=== PATIENT | male | born 1950 | race Caucasian/White ===

== ENCOUNTER 2016-09-22 11:02 | Inpatient (IN) | payer OTHER ==
[~2016-09-22 11:02] MED LIST: AMLO5TAB2 PO; OXYC-395 PO; ROSU10 PO; VALS1TAB70 PO; VENTAER INH
[2016-09-26] MEDS ORDERED: TRAZ100T6 PO (09:58)
[2016-09-26] MEDS ORDERED: PRED10 PO ×2 (10:01)
[2016-09-26] MEDS ORDERED: DIAZ5TAB PO (10:01)
[2016-09-26] MEDS ORDERED: SYMB160A INH (10:02)
[2016-09-27] MEDS ORDERED: IBUP800T23 PO (15:38)
[2016-09-29] MEDS ORDERED: INSULIN HUMAN REGULAR 1,000 UNITS/10 ML VIAL SQ PRN (10:00)
[2016-09-29] MEDS ORDERED: LACTATED RINGER'S 1000 ML IV PRN (10:00)
[2016-09-29] MEDS ORDERED: VANCOMYCIN HCL 1000 MG ON-CALL/NS 250 ML IV SCH ×2 (10:00)
[2016-09-29] MEDS ORDERED: POVIDONE IODINE 5% (ANTISEPSIS KIT) 4 APPLICATIONS EACH NARE PRN (10:00)
[2016-09-29] MEDS ORDERED: METOPROLOL TARTRATE 25 MG TAB PO PRN (10:00)
[2016-09-29] MEDS ORDERED: SODIUM CHLORID 0.9% 500 ML IV PRN (10:00)
[2016-09-29] MEDS ORDERED: SODIUM CHLOR 0.9% 1000 ML INJ 1,000 ML IV SCH (10:00)
[2016-09-29] MEDS ORDERED: CHLORHEXIDINE GLUCONATE 2 % 1 PACK (2 CLOTHS) TOPICAL PRN (10:00)
[2016-09-29 10:04] VITALS: BP 142/85; PULSE 74; RESP 16; TEMP 97.8; O2SAT 96
[2016-09-29] MEDS ORDERED: BUPIVACAINE HCL PF 0.5% 30 ML VIAL ONE (10:33)
[2016-09-29] MEDS ORDERED: THROMBIN (TOPICAL) 5,000 UNIT VIAL ONE ×2 (10:33→13:38)
[2016-09-29] MEDS ORDERED: ceFAZolin 2 GM PREMIX 50 ML ONE (10:33)
[2016-09-29] MEDS ORDERED: GENTAMICIN SULFATE 80 MG/2 ML VIAL ONE (10:34)
[2016-09-29] MEDS ORDERED: GELFOAM SIZE 100 ONE (10:34)
[2016-09-29] MEDS ORDERED: ePHEDrine/NS 25 MG/5 ML SYR IV ONE (11:52)
[2016-09-29] MEDS ORDERED: PROPOFOL 200 MG/20 ML AMP IV ONE (11:52)
[2016-09-29] MEDS ORDERED: ONDANSETRON HCL 4 MG/2 ML VIAL IV PUSH ONE (11:53)
[2016-09-29] MEDS ORDERED: PHENYLEPHRINE HCL 10 MG/ML VIAL IV ONE (11:53)
[2016-09-29] MEDS ORDERED: PHENYLEPH/NS 1000 MCG/10 ML SYR IV ONE (11:53)
[2016-09-29] MEDS ORDERED: LACTATED RINGER'S 1000 ML INJ 2,000 ML IV ONE (11:54)
[2016-09-29] MEDS ORDERED: SODIUM CHLOR 0.9% 250 ML INJ 250 ML IV ONE (11:54)
[2016-09-29] MEDS ORDERED: SODIUM CHLORID 0.9% 500 ML INJ 500 ML IV ONE (11:54)
[2016-09-29] MEDS ORDERED: ARTIFICIAL TEARS OPTH OINT 3.5 APPLIC/3.5 GM TUBO ONE (12:29)
[2016-09-29] MEDS ORDERED: fentaNYL CITRATE 250 MCG/5 ML AMP ONE (12:29)
[2016-09-29] MEDS ORDERED: MIDAZOLAM HCL 2 MG/2 ML VIAL ONE (12:29)
[2016-09-29] MEDS ORDERED: ACETAMINOPHEN 1000 MG/100 ML VIAL IV ONE (12:29)
[2016-09-29] MEDS ORDERED: FAMOTIDINE 20 MG/2 ML VIAL ONE (12:29)
[2016-09-29] MEDS: NS + KCL 20 MEQ INJ 1,000 ML IV SCH (17:03)
--- NOTE | 2016-09-29 17:09 | PD.OP ---
Operative Report Date of Surgery: Sep 29, 2016 Preoperative Diagnosis: l5-S1 spondylosis Postoperative Diagnosis: l5-S1 spondylosis Procedure: L5-S1 laminectomy, interbody arthrodhesis using PEEK cage and autologous bone graft, L5-S1 instrumental fixation using transpedicular screws and rods, L5-S1 posterolateral fusion using autologous bone graft and demineralized bone matrix. Microsurgical dissection Anesthesia: general Surgeon: Tucker Sofia Vault Keeper(s): Marilin Hernandez Operation and Findings: INDICATIONS FOR PROCEDURE Mr Castillo is a 65 year-old male who presented with intractable mechanical back pain and stephanie evidence of lower extremity radiculopathy. He has a history of a prior L4-5 laminectomy and fusion. He developed adjacent level (to a prior fusion) degenerative disk disease with facet arthropathy and a disk protusion at L5-S1. He failed maximum nonsurgical management including multiple modalities of conservative treatment as well as pain management interventions by an interventional pain specialist. The patient has undergone a previous surgical procedure. A redo surgical decompression and arthrodhesis were indicated as a last resort. The [id number] details of the procedure, indications, alternatives, risks and potential complications were fully discussed with the patient. The patient fully understood. All the questions were answered. No guarantees were given. The patient voiced requesting the procedure and provided informed consents. The patient was offered the alternative of delaying the procedure and continuing with nonsurgical management. DETAILS OF THE SURGICAL PROCEDURE Prior to the procedure, the surgical incision was marked in the preoperative surgical holding room, and the procedure, risks, and potential complications revisited with the patient. Placement of electrodes for intraoperative neurophysiological monitoring was completed. The patient was taken to the operative room, and following induction of general anesthesia, endotracheal intubation was performed. A Garner catheter, bilateral GREGORIO hose and sequential compression devices were placed and kept throughout the procedure. The patient was positioned prone, over a Herrera table using gel pads and bolsters.. All pressure in the preoperative surgical holding room points were carefully padded with eggcrate and gel mattress. The eyes were taped shut after ointment was applied by the anesthesiologist to prevent corneal abrasion. A bear hugger was placed over the exposed upper body to maintain control of the core body temperature. The electrophysiological team placed needles and electrodes in the proper location and baseline SSEPs were registered prior to and after positioning. Following positioning the levels were carefully assessed using AP and lateral views with the C-arm. The surgical procedure was performed in several steps as follows: SURGICAL APPROACH Once the patient was positioned, a localizing cross-table lateral x-ray was performed with a C-arm. Two paramedian small incisions were outlined on the skin approximately 3cm from the midline. The skin incisions were made with a # 10 blade. Small bleeders were controlled with the cautery. The dissection was then carried out into deper planes and through the thoracolumbar fascia with a Bovie. The intermuscular septum was identified and the myscles were blunted dissected along the septum. The facets and transverse process of S1 were exposed and the proper anatomical landmarks were identidied. The prior instrumentation was carefully exposed and a self-retaining retractor was placed on the incision. At this point of the procedure, the cross link of the prior instrumentation was carefully exposed free of scar tissue and the cross link was removed. Then, the caps of the previously placed screws were sequentially removed allowing removal of the rods. The screws at L4 were removed. INSTRUMENTAL FIXATION At this point of the procedure, placement of bilateral transpedicular screws was necessary for stabilization of the spine. Initially, the entry point for the screw was selected anatomically at the junction of the facet joint , transverse process and para interarticularis. Bilateral transpedicular screws were placed at S1. Initially, the entry point for the screw was selected anatomically at the junction of the facet, with the transverse process, and the pars interarticularis at the sacrum. This was started with a Giamshetti needle followed by the use of a obrien wire. A tap was used to create the threads for the screws. Finally bilateral transpedicular screws were carefully placed bilaterally at S1. A proper purchase was achieved with all screws. The position for each screw was assessed electrophysiologically stimulating each screw stimulating each screw with a nerve stimulator and radiologically with an AP, lateral and oblique views. Scan obtained with the isocentric C-arm. SURGICAL DECOMPRESSION The patient had significant mass effect over the thecal sac and exiting nerve roots S1. In order to relieve the neuro compression, it was necessary to perform a decompressive laminectomy, to allow proper decompression of the spinal canal and bilateral lateral recess and foramen. Note that the scope of such decompression was significantly more extensive than the minimal exposure necessary to perform and interbody fusion as the patient has severe facet arthropathy and degeneration of the disk with hypertrophic joint facets. At this point of the procedure, the operative microscope was draped in the usual sterile fashion and brought to the field. The rest of the surgical procedure was performed using microdissection technique with exception of the closure. Under the operative microscope, a bilateral decompressive laminectomy was performed at L5-S1. The spinous processes were removed with an Leksell and the laminae was drilled bilaterally with the TPS drill exposing the ligamentum flavum. There was severe facet arthropathy and in order to achieve a proper decompression, signicand amount of facet had to be drilled with a TPS drill, which resulted in further instability. The superior border of the ligamentum flavum was carefully elevated with a nerve hook and ligamentum dissector and removed with the 3mm and 4mm Kerrison. The S1 nerve roots were identified and followed towards the foramen. A bilateral foraminotomy was performed with a Kerrison. The lateral epidural space was carefully exposed and epidural veins were coagulated with the bipolar and incised with microscissors. Gentle medial retraction of the thecal sac allowed to expose the disk space L5- S1. The annulus was coagulated with the bipolar and incised with an 11 blade and a microdiskectomy was exposed in the standard fashion allowing for excellent decompression of the neuro structures. There was severe degeneration of the disk at L5S1 INTERBODY ARTHRODHESIS An interbody arthrodesis is necessary in order to further stabilize the spine and maintain distraction of the disk space and to increase the chances of obtaining a solid interbody fusion, it was necessary the insertion of an interbody device into the disk space. Otherwise, the disk space could collapse compromising the surgical results. At this point of the procedure, the microdiskectomy was completed at L5-S1 A reverse angled curet was applied to underneath the posterior longitudinal ligament and used to push the disk fragments into the disk space so they could be safely removed with the pituitary forceps. Once the diskectomy was completed, it was necessary to distract the space and decorticate the endplates in order to eliminate the cartilaginous endplate and expose healthy bone appropriate to perform the interbody fusion. The endplates at L5-S1 were distracted with a paddle distractor and then carefully decorticated using a series of bone jhon, ring curets, eliminating the cartilaginous endplate and exposing healthy bone. Disk distractor was used to increase the site. Initial motion was noted at the disk which was consistent with instability due to severe facet arthropathy. Once a thorough preparation of the disk space was achieved, the disk space was irrigated with antibiotic solution and the interbody arthrodesis performed by carefully impacting a Peek cage filled with autologous iliac crest bone graft in position. The use of several showed impactor with different angulations allowed for excellent positioning of the interbody cage. A solid position of the cage with good purchase into the disk space was achieved. The position of the cage was assessed anatomically without AP and lateral probe and radiologically with a C-arm. POSTEROLATERAL FUSION The posterolateral fusion is a critical component to the procedure to prevent future fatigue of the instrumentation and stabilize the spine. Initially the transverse processes of the vertebral bodies L5 and S1 lateral surface of the facet lateral gutters of the spine at L5 and S1 were carefully cleaned from all soft tissue and muscle attachments. The area was irrigated with antibiotic solution. Subsequently, the transverse processes, lateral surface of the facets and lateral gutters of the spine were thoroughly decorticated using the TPS drill with a 5 mm cutting prisca exposing cancellous bone in preparation of the posterolateral fusion. The incision was then irrigated again with antibiotic solution and the posterolateral fusion was performed by carefully packing the gutters of the spine at L5-S1 with autologous iliac crest bone, and with demineralized bone matrix. As much bone as possible was packed in the gutters of the spine. COMPLETION OF INSTRUMENTATION AND CLOSURE The rods were brought to the field, applied to all the screws. The screw caps were sequentially applied. Compression was performed between the pedicle screws at L5-S1 and final tightening of all screws was completed using a pre-calibrated torque wrench. A cross link was used to connect the rods in order to increase the stability of the construct. The cross links were secured using a pre-calibrated torque wrench. The incision was again irrigated with a large amount of antibiotic solution. Hemostasis was secured with the bipolar cautery. The Valsalva maneuver performed by anesthesiologist failed to show any evidence of cerebrospinal fluid leak or bleeding. A 7 mm Herrera-Arana drain was left in the epidural space and externalized through a separate stab incision. The incision was closed in planes. 0 Vicryl was used in interrupted fashion to close the thoracolumbar fascia and the superficial fascia. The subcutaneous tissue was approximated with 3-0 Vicryl. Special care was taken to avoid any space. The skin was closed with 4-0 Vicryl in a running fashion. Each plane of closure was irrigated with antibiotic solution. At the end of the procedure the sponge, needle and instrument counts were all correct. Estimated blood loss was 250 cc or less. No blood transfusion was given. The entire procedure was performed using continuous electrophysiological monitoring of the somato sensorial evoked potentials and EMG. The patient received prophylactic antibiotics. The patient was then extubated and transferred to the recovery room in stable condition. Tucker Sofia MD Sep 29, 2016 17:09
[2016-09-29] MEDS ORDERED: NALOXONE HCL 0.4 MG/ML AMP IV PRN (17:15)
[2016-09-29] MEDS ORDERED: traZODone HCL 100 MG TAB PO PRN (17:15)
[2016-09-29] MEDS ORDERED: ALBUTEROL SULFATE 90 MCG/ACT HFA 8 GM INHALER INH PRN (17:15)
[2016-09-29] MEDS ORDERED: MORPHINE SULFATE 8 MG/ML INJ IV PUSH PRN ×2 (17:15)
[2016-09-29] MEDS ORDERED: ACETAMINOPHEN 325 MG TAB PO PRN (17:15)
[2016-09-29] MEDS ORDERED: diphenhydrAMINE HCL 50 MG/ML VIAL IV PRN (17:15)
[2016-09-29] MEDS ORDERED: SODIUM CHLORIDE 0.9% FLUSH 10 ML FLUSH IV FLUSH PRN (17:15)
[2016-09-29] MEDS ORDERED: DO NOT ADM ANY ANTICOAGULANT DRUGS PRN (17:46)
--- NOTE | 2016-09-29 18:40 | RADRPT ---
EXAM DATE/TIME: 09/29/2016 13:33 [facility] COMPARISON: SPINE LUMBAR LTD (AP & LAT), October 19, 2009, 11:05. INDICATIONS : Fusion L5,S1 screw placement S1 removal L4 screws. MEDICAL HISTORY : Cardiovascular disease. Hypertension. SURGICAL HISTORY : Fusion, lumbar. Colon resection. Appendectomy. ENCOUNTER: Initial ACUITY: 1 day PAIN SCORE: Non-responsive. LOCATION: Lumbar spine. FINDINGS: There are changes of discectomy and fusion procedure with interbody and posterior instrumentation at L5/S1. Patient has had a remote discectomy at L4/L5 with interbody instrumentation. Previously seen p osterior instrumentation at L4/L5 has been removed. Alignment is within normal limits. CONCLUSION: New discectomy and fusion procedure with interbody and posterior instrumentation at L5/S1. Normal ali gnment. No acute complication demonstrated. Lonnie Hernandez MD on September 29, 2016 at 18:37 Board Certified Radiologist. This report was verified electronically.
[2016-09-29] MEDS: HYDROmorphone HCL PCA 6 MG/30 ML IV SCH ×2 (18:45→22:39)
[2016-09-29] MEDS: BUDESONIDE-FORMOTEROL 160/4.5 MCG INHALER INH SCH (20:52)
[2016-09-29] MEDS: predniSONE 10 MG TAB PO SCH (20:53)
[2016-09-29] MEDS: VALSARTAN 160 MG TAB PO SCH (20:53)
[2016-09-29] MEDS: amLODIPine BESYLATE 5 MG TAB PO SCH (20:53)
[2016-09-29] MEDS: SODIUM CHLORIDE 0.9% FLUSH 10 ML FLUSH IV FLUSH SCH (20:54)
[2016-09-29] MEDS: ceFAZolin 2 GM PREMIX 50 ML IV SCH (20:54)
[2016-09-29] MEDS: PCA - TOTAL MG DILAUDID DELIVERED PER SHIFT SCH (20:54)
[2016-09-29 20:55] VITALS: BP 112/69; PULSE 80; RESP 17; TEMP 96.8; O2SAT 94
[2016-09-29] MEDS ORDERED: ATORVASTATIN 20 MG TAB PO SCH (21:00)
[2016-09-30 00:50] VITALS: BP 106/64; PULSE 88; RESP 17; TEMP 96.7; O2SAT 94
[2016-09-30] MEDS: ceFAZolin 2 GM PREMIX 50 ML IV SCH ×2 (04:25→12:06)
[2016-09-30] MEDS: HYDROmorphone HCL PCA 6 MG/30 ML IV SCH ×5 (04:32→22:38)
[2016-09-30] MEDS: PCA - TOTAL MG DILAUDID DELIVERED PER SHIFT SCH ×3 (04:32→20:41)
[2016-09-30 04:50] VITALS: BP 105/67; PULSE 83; RESP 17; TEMP 97.5; O2SAT 94
[2016-09-30 06:55] LABS: AUTOMATED NEUTROPHIL # 16.1 TH/MM3 (1.8-7.7); BASOPHIL % 0.1 % (0.0-2.0); HEMATOCRIT 36.9 % (39.0-51.0); HEMO FLAGS DIFF FINAL; LYMPH % 6.3 % (9.0-44.0); LYMPHOCYTE # 1.2 TH/MM3 (1.0-4.8); MEAN CELL VOLUME 91.4 FL (80.0-100.0); MEAN CORPUSCULAR HEMOGLOBIN 30.4 PG (27.0-34.0); MEAN CORPUSCULAR HGB CONC 33.3 % (32.0-36.0); MONO % 6.9 % (0.0-8.0); NEUT % 86.7 % (16.0-70.0); PLATELET COUNT 374 TH/MM3 (150-450); RED BLOOD COUNT 4.04 MIL/MM3 (4.50-5.90); RED CELL DISTRIBUTION WIDTH 14.5 % (11.6-17.2); WHITE BLOOD COUNT 18.6 TH/MM3 (4.0-11.0)
[2016-09-30 06:58] LABS: BICARBONATE 28.9 MEQ/L (21.0-32.0); POTASSIUM 4.2 MEQ/L (3.5-5.1)
[2016-09-30 08:00] VITALS: BP 98/65; PULSE 95; RESP 16; TEMP 99.1; O2SAT 93
[2016-09-30] MEDS: PANTOPRAZOLE SODIUM 40 MG VIAL IVP SCH (10:03)
[2016-09-30] MEDS: predniSONE 10 MG TAB PO SCH ×2 (10:03→20:40)
[2016-09-30] MEDS: NS + KCL 20 MEQ INJ 1,000 ML IV SCH ×2 (10:05→20:41)
[2016-09-30] MEDS: BUDESONIDE-FORMOTEROL 160/4.5 MCG INHALER INH SCH ×2 (10:11→20:39)
[2016-09-30] MEDS: SODIUM CHLORIDE 0.9% FLUSH 10 ML FLUSH IV FLUSH SCH ×2 (10:13→20:39)
[2016-09-30] MEDS: DIAZEPAM 5 MG TAB PO PRN (10:13)
--- NOTE | 2016-09-30 11:14 | HHI.NSPN ---
History Chief Complaint: Incisional back pain. Interval History 09/30/16: Pt s/p L5-S1 laminectomy, interbody arthrodhesis using PEEK cage and autologous bone graft, L5-S1 instrumental fixation using transpedicular screws and rods, L5-S1 posterolateral fusion using autologous bone graft and demineralized bone matrix on 09/29/16. He complains of incisional back pain. He is using his FIGURE SKATER a lot to control his pain and doesn't want it discontinued. He denies any radiculopathy or paresthesias. Review of Systems General: Negative for: fever, chills, insomnia Respiratory: Negative for: shortness of breath, cough, sputum Cardiovascular: Positive for: orthopnea, Negative for: chest pain Gastrointestinal: Negative for: nausea, vomitting, diarrhea, constipation Exam Results Vital Signs Date Time Temp Pulse Resp B/P Pulse Ox O2 Delivery O2 Flow Rate FiO2 09/30/16 10:09 15 09/30/16 08:00 99.1 95 98/65 93 09/30/16 03:27 21 09/29/16 18:45 Room Air Intake and Output 09/29/16 09/29/16 09/30/16 08:00 16:00 00:00 Intake Total 700 ml Output Total 580 ml Balance 120 ml Physical Examination Resp: CTA bilaterally Heart: NSR no murmurs Abd: Soft positive bs Skin: No cyanosis or erythema. New bandage placed. AYSHA drain in place. Muscle: Moves LEs with good strength. Neuro: Pt awake and alert. Follows commands well. Speech clear and appropriate. Lab, Micro, Other Results Last Impressions Lumbar Spine X-Ray 09/29/16 0000 Signed Impressions: Service Date/Time: Thursday, September 29, 2016 13:33 - CONCLUSION: New discectomy and fusion procedure with interbody and posterior instrumentation at L5/S1. Normal alignment. No acute complication demonstrated. Lonnie Hernandez MD Laboratory Tests Test 09/30/16 05:50 White Blood Count 18.6 TH/MM3 Red Blood Count 4.04 MIL/MM3 Hemoglobin 12.3 GM/DL Hematocrit 36.9 % Mean Corpuscular Volume 91.4 FL Mean Corpuscular Hemoglobin 30.4 PG Mean Corpuscular Hemoglobin 33.3 % Concent Red Cell Distribution Width 14.5 % Platelet Count 374 TH/MM3 Mean Platelet Volume 7.1 FL Neutrophils (%) (Auto) 86.7 % Lymphocytes (%) (Auto) 6.3 % Monocytes (%) (Auto) 6.9 % Eosinophils (%) (Auto) 0.0 % Basophils (%) (Auto) 0.1 % Neutrophils # (Auto) 16.1 TH/MM3 Lymphocytes # (Auto) 1.2 TH/MM3 Monocytes # (Auto) 1.3 TH/MM3 Eosinophils # (Auto) 0.0 TH/MM3 Basophils # (Auto) 0.0 TH/MM3 CBC Comment DIFF FINAL Differential Comment Sodium Level 134 MEQ/L Potassium Level 4.2 MEQ/L Chloride Level 100 MEQ/L Carbon Dioxide Level 28.9 MEQ/L Anion Gap 5 MEQ/L Blood Urea Nitrogen 15 MG/DL Creatinine 0.78 MG/DL Estimat Glomerular Filtration 100 ML/MIN Rate Random Glucose 125 MG/DL Calcium Level 8.4 MG/DL 09/29/16 09/29/16 09/30/16 15:00 23:00 07:00 Intake Total 700 ml 480 ml Output Total 580 ml 1360 ml Balance 120 ml -880 ml Intake Oral 360 ml 480 ml IV Total 340 ml Output Urine Total 550 ml 1350 ml Drainage Total 30 ml 10 ml # Voids 2 # Bowel Movements 0 0 Medical Decision Making Impression and Plan A: 65 y/o M s/p L5-S1 laminectomy, interbody arthrodhesis using PEEK cage and autologous bone graft, L5-S1 instrumental fixation using transpedicular screws and rods, L5-S1 posterolateral fusion using autologous bone graft and demineralized bone matrix. P: Continue with pain control. D/C AYSHA drain 10/01/16 PT oob with brace on. Shakir Carroll Sep 30, 2016 11:14
[2016-09-30 13:00] VITALS: BP 130/71; PULSE 89; RESP 16; TEMP 97; O2SAT 91
[2016-09-30 15:15] VITALS: BP 117/69; PULSE 90; RESP 16; TEMP 95.9; O2SAT 92
--- NOTE | 2016-09-30 18:33 | PD.CONS ---
HPI Service [facility] Consult Requested By Primary Care Physician Víctor Leung M.D. Diagnoses: History of Present Illness This is a Very pleasant 65-year-old male was seen on medical consultation in room 1625 in the presence of his . The patient had the following procedure done on 09/29/16: L5-S1 laminectomy, interbody arthrodhesis using PEEK cage and autologous bone graft, L5-S1 instrumental fixation using transpedicular screws and rods, L5-S1 posterolateral fusion using autologous bone graft and demineralized bone matrix. Microsurgical dissection. He Is alert and oriented at this time, his pain is moderately well controlled, he is happy that he can eat again, he is wearing a brace, he has a Garner in place, he denies complaints otherwise Review of Systems Other 10 systems reviewed and otherwise negative Past Family Social History Past Medical History Hyperlipidemia COPD Ongoing tobacco abuse Peptic ulcer disease Anxiety Past Surgical History He is status post multiple spine surgeries 2 on his cervical spine and a total of 4 over his lumbar spine Partial colectomy following volvulus Appendectomy Left rotator cuff surgery Hypertension Reported Medications Reported Meds & Active Scripts Active Ibuprofen 800 Mg Tab 800 Mg PO Q8H PRN Oxycodone (Oxycodone HCl) 10 Mg Tab 10 Mg PO Q8H PRN Reported Symbicort Inh (Budesonide/Formoterol Fumarate) 160-4.5 Mcg/Act Aero 2 Puff INH Q12HR Prednisone 10 Mg Tab 10 Mg PO BID Diazepam 5 Mg Tab 5 Mg PO BID PRN Trazodone (Trazodone HCl) 100 Mg Tablet 100 Mg PO HS PRN Ventolin Hfa 18 GM Inh (Albuterol Sulfate) 90 Mcg/Act Aer 2 Puff INH BID PRN Crestor (Rosuvastatin Calcium) 10 Mg Tab 10 Mg PO MO,WE,FR Valsartan 320 Mg Tab 320 Mg PO HS Amlodipine (Amlodipine Besylate) 5 Mg Tab 5 Mg PO HS Allergies: Coded Allergies: No Known Allergies (Verified , 09/29/16) Family History Reviewed but not contributory Social History Smokes 2 packs of cigarettes a day, no alcohol for 15 years, no illicit drug use , he is , 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 Physical Exam Vital Signs Vital Signs Date Time Temp Pulse Resp B/P Pulse Ox O2 Delivery O2 Flow Rate FiO2 09/30/16 17:02 15 7/15/17 15:15 95.9 90 16 117/69 92 09/30/16 14:00 15 09/30/16 13:00 97.0 89 16 130/71 91 09/30/16 12:14 15 09/30/16 10:09 15 09/30/16 08:00 99.1 95 16 98/65 93 09/30/16 04:50 97.5 83 17 105/67 94 09/30/16 03:27 21 09/30/16 00:50 96.7 88 17 106/64 94 09/29/16 22:39 16 09/29/16 20:55 96.8 80 17 112/69 94 09/29/16 20:54 16 09/29/16 18:45 14 09/29/16 18:45 80 16 104/59 97 Room Air 09/29/16 18:30 80 16 106/57 96 Room Air Physical Exam GENERAL: This is a well-nourished, well-developed patient, in no apparent distress. SKIN: No rashes, ecchymoses or lesions. Cool and dry. HEAD: Atraumatic. Normocephalic. No temporal or scalp tenderness. EYES: Pupils equal round and reactive. Extraocular motions intact. No scleral icterus. No injection or drainage. ENT: Nose without bleeding, purulent drainage or septal hematoma. Throat without erythema, tonsillar hypertrophy or exudate. Uvula midline. Airway patent. NECK: Trachea midline. No JVD or lymphadenopathy. Supple, nontender, no meningeal signs. CARDIOVASCULAR: Regular rate and rhythm without murmurs, gallops, or rubs. RESPIRATORY: Mild bilateral crackles . GASTROINTESTINAL: Abdomen soft, thoracic brace in place MUSCULOSKELETAL: Extremities without clubbing, cyanosis, or edema. No joint tenderness, effusion, or edema noted. No calf tenderness. Negative Homans sign bilaterally. NEUROLOGICAL: Awake and alert. Cranial nerves II through XII intact. Normal speech. Laboratory Laboratory Tests Test 09/30/16 05:50 White Blood Count 18.6 Red Blood Count 4.04 Hemoglobin 12.3 Hematocrit 36.9 Mean Corpuscular Volume 91.4 Mean Corpuscular Hemoglobin 30.4 Mean Corpuscular Hemoglobin 33.3 Concent Red Cell Distribution Width 14.5 Platelet Count 374 Mean Platelet Volume 7.1 Neutrophils (%) (Auto) 86.7 Lymphocytes (%) (Auto) 6.3 Monocytes (%) (Auto) 6.9 Eosinophils (%) (Auto) 0.0 Basophils (%) (Auto) 0.1 Neutrophils # (Auto) 16.1 Lymphocytes # (Auto) 1.2 Monocytes # (Auto) 1.3 Eosinophils # (Auto) 0.0 Basophils # (Auto) 0.0 CBC Comment DIFF FINAL Differential Comment Sodium Level 134 Potassium Level 4.2 Chloride Level 100 Carbon Dioxide Level 28.9 Anion Gap 5 Blood Urea Nitrogen 15 Creatinine 0.78 Estimat Glomerular Filtration 100 Rate Random Glucose 125 Calcium Level 8.4 Result Diagram: 09/30/16 0550 09/30/16 0550 A/P Assessment and Plan Assessment COPD Tobacco abuse Leukocytosis Status post back surgery on 09/29/16 Management Continue routine post back surgery protocol Pain control Continue home medications DVT prophylaxis with sequential Remove Garner if possible Discussed with patient and his Discussed with nurse Thank you for allowing us to participate in the care of this patient on consultation We will be following him along with you while hospitalized Discussed With: Nurse, Family José Miguel Rueda MD Sep 30, 2016 18:33
[2016-09-30 19:30] VITALS: BP 124/75; PULSE 85; RESP 17; TEMP 97.2; O2SAT 92
[2016-09-30] MEDS: VALSARTAN 160 MG TAB PO SCH (20:40)
[2016-09-30] MEDS: amLODIPine BESYLATE 5 MG TAB PO SCH (20:40)
[2016-10-01 00:10] VITALS: BP 112/60; PULSE 79; RESP 17; TEMP 97.1; O2SAT 93
[2016-10-01 04:40] VITALS: BP 110/69; PULSE 80; RESP 16; TEMP 97; O2SAT 92
[2016-10-01] MEDS: PCA - TOTAL MG DILAUDID DELIVERED PER SHIFT SCH ×3 (05:09→22:33)
[2016-10-01] MEDS: HYDROmorphone HCL PCA 6 MG/30 ML IV SCH ×5 (06:53→23:44)
[2016-10-01 08:00] VITALS: BP 116/73; PULSE 78; RESP 18; TEMP 96.8; O2SAT 93
[2016-10-01] MEDS: SODIUM CHLORIDE 0.9% FLUSH 10 ML FLUSH IV FLUSH SCH ×2 (09:00→22:31)
[2016-10-01] MEDS: NS + KCL 20 MEQ INJ 1,000 ML IV SCH ×2 (09:03→22:34)
[2016-10-01] MEDS: BUDESONIDE-FORMOTEROL 160/4.5 MCG INHALER INH SCH ×2 (09:22→22:31)
[2016-10-01] MEDS: PANTOPRAZOLE SODIUM 40 MG VIAL IVP SCH (09:22)
[2016-10-01] MEDS: DIAZEPAM 5 MG TAB PO PRN (09:22)
[2016-10-01] MEDS: predniSONE 10 MG TAB PO SCH ×2 (09:22→22:33)
--- NOTE | 2016-10-01 09:42 | HHI.NSPN ---
History Chief Complaint: Incisional back pain. Interval History 09/30/16: Pt s/p L5-S1 laminectomy, interbody arthrodhesis using PEEK cage and autologous bone graft, L5-S1 instrumental fixation using transpedicular screws and rods, L5-S1 posterolateral fusion using autologous bone graft and demineralized bone matrix on 09/29/16. He complains of incisional back pain. He is using his PHYSICIAN PEDIATRICIAN a lot to control his pain and doesn't want it discontinued. He denies any radiculopathy or paresthesias. 10/01/16: Pt awake and alert. Complains of low back pain. no radiculopathy or paresthesias in LEs. Pt very pleased with his care provided in hospital. He is on a PHYSICIAN PEDIATRICIAN and doesn't feel he can come off this today given his pain level. Review of Systems General: Negative for: fever, chills, insomnia Respiratory: Negative for: shortness of breath, cough, sputum Cardiovascular: Negative for: chest pain Gastrointestinal: Negative for: nausea, vomitting, diarrhea, constipation Exam Results Vital Signs Date Time Temp Pulse Resp B/P Pulse Ox O2 Delivery O2 Flow Rate FiO2 10/01/16 06:53 15 10/01/16 04:40 97.0 80 110/69 92 09/30/16 20:35 21 09/29/16 18:45 Room Air Intake and Output 09/30/16 09/30/16 10/01/16 08:00 16:00 00:00 Intake Total 480 ml 309 ml 440 ml Output Total 1360 ml 1380 ml 450 ml Balance -880 ml -1071 ml -10 ml Physical Examination Resp: CTA bilaterally Heart: NSR no murmurs Abd: Soft positive bs Skin: No cyanosis or erythema. AYSHA drain in place. The suction was released and AYSHA drain removed. Steristip was placed at exit site. New bandage was placed. Muscle: Moves LEs with good strength. Neuro: Pt awake and alert. Follows commands well. Speech clear and appropriate. Lab, Micro, Other Results Last Impressions Lumbar Spine X-Ray 09/29/16 0000 Signed Impressions: Service Date/Time: Thursday, September 29, 2016 13:33 - CONCLUSION: New discectomy and fusion procedure with interbody and posterior instrumentation at L5/S1. Normal alignment. No acute complication demonstrated. Lonnie Hernandez MD 09/30/16 09/30/16 10/01/16 15:00 23:00 07:00 Intake Total 309 ml 440 ml Output Total 1380 ml 450 ml Balance -1071 ml -10 ml Intake Oral 440 ml IV Total 309 ml Output Urine Total 1350 ml 450 ml Drainage Total 30 ml # Bowel Movements 0 Medical Decision Making Impression and Plan A: 65 y/o M s/p L5-S1 laminectomy, interbody arthrodhesis using PEEK cage and autologous bone graft, L5-S1 instrumental fixation using transpedicular screws and rods, L5-S1 posterolateral fusion using autologous bone graft and demineralized bone matrix. P: Continue with pain control. D/C Garner catheter. PT oob with brace on. Shakir Carroll Oct 01, 2016 09:42
--- NOTE | 2016-10-01 11:10 | HHI.PR ---
Vitals/Results Intake & Output 09/30/16 09/30/16 10/01/16 15:00 23:00 07:00 Intake Total 309 ml 440 ml Output Total 1380 ml 450 ml Balance -1071 ml -10 ml Intake Oral 440 ml IV Total 309 ml Output Urine Total 1350 ml 450 ml Drainage Total 30 ml # Bowel Movements 0 Vital Signs Vital Signs Date Time Temp Pulse Resp B/P Pulse Ox O2 Delivery O2 Flow Rate FiO2 10/01/16 08:00 96.8 78 18 116/73 93 10/01/16 06:53 15 10/01/16 05:09 14 10/01/16 04:40 97.0 80 16 110/69 92 10/01/16 00:10 97.1 79 17 112/60 93 09/30/16 22:38 14 09/30/16 20:41 14 09/30/16 20:35 21 09/30/16 19:30 97.2 85 17 124/75 92 09/30/16 17:02 15 09/30/16 15:15 95.9 90 16 117/69 92 09/30/16 14:00 15 09/30/16 13:00 97.0 89 16 130/71 91 09/30/16 12:14 15 CBC/BMP: 09/30/16 0550 09/30/16 0550 Assessment/Plan Assessment/Plan Assessment Back pain COPD Tobacco abuse Leukocytosis Status post back surgery on 09/29/16 Removed Garner earlier today Management Continue routine post back surgery protocol Pain control Continue home medications DVT prophylaxis with sequential Follow white count Discussed with patient Discussed with nurse Thank you for allowing us to participate in the care of this patient on consultation We will be following him along with you while hospitalized José Miguel Rueda MD Oct 01, 2016 11:10
[2016-10-01 12:00] VITALS: BP 134/73; PULSE 88; RESP 18; TEMP 96.2; O2SAT 94
[2016-10-01 15:25] LABS: AUTOMATED NEUTROPHIL # 15.1 TH/MM3 (1.8-7.7); BASOPHIL # 0.2 TH/MM3 (0-0.2); BASOPHIL % 0.9 % (0.0-2.0); EOSINOPHIL # 0.1 TH/MM3 (0-0.4); EOSINOPHIL % 0.6 % (0.0-4.0); HEMATOCRIT 39.7 % (39.0-51.0); LYMPH % 8.7 % (9.0-44.0); LYMPHOCYTE # 1.5 TH/MM3 (1.0-4.8); MEAN CORPUSCULAR HEMOGLOBIN 31.1 PG (27.0-34.0); MEAN CORPUSCULAR HGB CONC 33.8 % (32.0-36.0); MONO % 5.3 % (0.0-8.0); NEUT % 84.5 % (16.0-70.0); PLATELET COUNT 394 TH/MM3 (150-450); RED BLOOD COUNT 4.31 MIL/MM3 (4.50-5.90); RED CELL DISTRIBUTION WIDTH 14.5 % (11.6-17.2); WHITE BLOOD COUNT 17.9 TH/MM3 (4.0-11.0)
[2016-10-01 15:28] LABS: HEMO FLAGS AUTO DIFF
[2016-10-01 15:52] LABS: BANDS 10 % (0-6); MYELOCYTES 1 % (0-0); NEUTROPHIL # MANUAL DIFF 14.7 TH/MM3 (1.8-7.7); POLYS (SEG NEUTROPHILS) 71 % (16-70); WBC DIFF SAMPLE 100
[2016-10-01 15:53] LABS: PLATELET ESTIMATE SMEAR HIGH (NORMAL); PLATELET MORPHOLOGY NORMAL (NORMAL); SCAN/DIFF FINAL DIFF MANUAL
[2016-10-01 16:00] VITALS: BP 106/58; PULSE 95; RESP 18; TEMP 96.1; O2SAT 94
[2016-10-01 16:12] LABS: ALT (GPT) 43 U/L (12-78); ANION GAP 6 MEQ/L (5-15); AST (GOT) 39 U/L (15-37); BICARBONATE 32.4 MEQ/L (21.0-32.0); BLOOD UREA NITROGEN 13 MG/DL (7-18); CHLORIDE 98 MEQ/L (98-107); GLOMERULAR FILTRATION RATE 114 ML/MIN (>89); POTASSIUM 4.1 MEQ/L (3.5-5.1); SODIUM (NA) 136 MEQ/L (136-145)
[2016-10-01 16:14] LABS: ALKALINE PHOSPHATASE 76 U/L (45-117); INDIRECT BILIRUBIN 0.2 MG/DL (0.0-0.8); TOTAL BILIRUBIN ADULT 0.3 MG/DL (0.2-1.0)
[2016-10-01 21:00] VITALS: BP 138/74; PULSE 103; RESP 18; TEMP 97.3; O2SAT 93
[2016-10-01] MEDS: VALSARTAN 160 MG TAB PO SCH (22:33)
[2016-10-01] MEDS: amLODIPine BESYLATE 5 MG TAB PO SCH (22:33)
[2016-10-02 00:45] VITALS: BP 122/67; PULSE 82; RESP 18; TEMP 97; O2SAT 94
[2016-10-02 04:15] VITALS: BP 133/73; PULSE 94; RESP 17; TEMP 97.8; O2SAT 93
[2016-10-02] MEDS: NS + KCL 20 MEQ INJ 1,000 ML IV SCH (05:03)
[2016-10-02] MEDS: PCA - TOTAL MG DILAUDID DELIVERED PER SHIFT SCH ×2 (05:36→13:39)
[2016-10-02] MEDS: HYDROmorphone HCL PCA 6 MG/30 ML IV SCH (05:36)
[2016-10-02 07:44] VITALS: BP 140/66; PULSE 80; RESP 18; TEMP 97; O2SAT 93
[2016-10-02] MEDS: SODIUM CHLORIDE 0.9% FLUSH 10 ML FLUSH IV FLUSH SCH (09:00)
[2016-10-02] MEDS: PANTOPRAZOLE SODIUM 40 MG VIAL IVP SCH (09:20)
[2016-10-02] MEDS: DIAZEPAM 5 MG TAB PO PRN (09:20)
[2016-10-02] MEDS: predniSONE 10 MG TAB PO SCH (09:20)
[2016-10-02] MEDS: BUDESONIDE-FORMOTEROL 160/4.5 MCG INHALER INH SCH (09:21)
[2016-10-02] MEDS ORDERED: OXYC-395 PO (10:08)
--- NOTE | 2016-10-02 10:48 | HHI.DS ---
Discharge Summary Admission Date Sep 29, 2016 at 09:17 Discharge Date: Oct 02, 2016 Admitting Diagnosis s/p lumbar fusion (1) S/P lumbar spinal fusion ICD Code: Z98.1 Brief History Mr Castillo is a 65 year-old male who presented with intractable mechanical back pain and stephanie evidence of lower extremity radiculopathy. He has a history of a prior L4-5 laminectomy and fusion. He developed adjacent level (to a prior fusion) degenerative disk disease with facet arthropathy and a disk protusion at L5-S1. He failed maximum nonsurgical management including multiple modalities of conservative treatment as well as pain management interventions by an interventional pain specialist. The patient has undergone a previous surgical procedure. A redo surgical decompression and arthrodesis were indicated as a last resort. CBC/BMP: 10/01/16 1147 10/01/16 1447 Significant Findings Laboratory Tests Test 09/30/16 10/01/16 10/01/16 05:50 11:47 14:47 White Blood Count 18.6 TH/MM3 17.9 TH/MM3 (4.0-11.0) (4.0-11.0) Red Blood Count 4.04 MIL/MM3 4.31 MIL/MM3 (4.50-5.90) (4.50-5.90) Hemoglobin 12.3 GM/DL (13.0-17.0) Hematocrit 36.9 % (39.0-51.0) Neutrophils (%) (Auto) 86.7 % 84.5 % (16.0-70.0) (16.0-70.0) Lymphocytes (%) (Auto) 6.3 % 8.7 % (9.0-44.0) (9.0-44.0) Neutrophils # (Auto) 16.1 TH/MM3 15.1 TH/MM3 (1.8-7.7) (1.8-7.7) Monocytes # (Auto) 1.3 TH/MM3 1.0 TH/MM3 (0-0.9) (0-0.9) Sodium Level 134 MEQ/L (136-145) Random Glucose 125 MG/DL 109 MG/DL (74-106) (74-106) Calcium Level 8.4 MG/DL (8.5-10.1) Neutrophils % (Manual) 71 % (16-70) Band Neutrophils % 10 % (0-6) Neutrophils # (Manual) 14.7 TH/MM3 (1.8-7.7) Myelocytes 1 % (0-0) Platelet Estimate HIGH (NORMAL) Carbon Dioxide Level 32.4 MEQ/L (21.0-32.0) Aspartate Amino Transf 39 U/L (15-37) (AST/SGOT) Hospital Course Mr. Castillo underwent a L5-S1 laminectomy, interbody arthrodhesis using PEEK cage and autologous bone graft, L5-S1 instrumental fixation using transpedicular screws and rods, L5-S1 posterolateral fusion using autologous bone graft and demineralized bone matrix. Microsurgical dissection on Sep 29, 2016. His postoperative pain was managed with BUNCH TRIMMER MOLD pump that was subsequently weaned off. His surgical pain improved and tolerable on oral pain medications. He was discharged home in stable conditions. Wound care and activity restrictions were discussed. Pt Condition on Discharge: Stable Discharge Disposition: Discharge Home Discharge Instructions DIET: Follow Instructions for: Heart Healthy Diet ACTIVITIES You can perform: Weight Bearing As Eren ADDITIONAL Activity Instructio: Avoid strenuous activities, heavy lifting, overhead activities, repetitive bending, twisting, pushing, pulling or any activities which might result in stress over the spine. Avoid situtation that will put at risk for falls. Use assistive device as needed for walking. Wear TLSO brace when out of bed. Continued Medications: Albuterol 18 GM Inh (Ventolin Hfa 18 GM Inh) 90 Mcg/Act Aer 2 PUFF INH BID PRN SHORTNESS OF BREATH Ref 0 INHALER Amlodipine (Amlodipine) 5 Mg Tab 5 MG PO HS Blood Pressure Management Ref 0 TAB Budesonide-Formoterol Inh (Symbicort Inh) 160-4.5 Mcg/Act Aero 2 PUFF INH Q12HR #1 Ref 0 INHALER Diazepam (Diazepam) 5 Mg Tab 5 MG PO BID PRN anxiety Ref 0 TAB Ibuprofen (Ibuprofen) 800 Mg Tab 800 MG PO Q8H PRN BACK PAIN #21 Ref 0 TAB Oxycodone (Oxycodone) 10 Mg Tab 10 MG PO Q8H PRN PAIN #62 Ref 0 TAB (This prescription has been renewed) Prednisone (Prednisone) 10 Mg Tab 10 MG PO BID Ref 0 TAB Rosuvastatin (Crestor) 10 Mg Tab 10 MG PO mo,we,fr Cholesterol Management Ref 0 TAB Trazodone (Trazodone) 100 Mg Tablet 100 MG PO HS PRN INSOMNIA #30 Ref 0 TAB Valsartan (Valsartan) 320 Mg Tab 320 MG PO HS Ref 0 TAB Nikky Granados Oct 02, 2016 10:48
--- NOTE | 2016-10-02 10:48 | HHI.DCPOC ---
Discharge Care Plan Diagnosis: (1) S/P lumbar spinal fusion Goals to Promote Your Health * To prevent worsening of your condition and complications * To maintain your health at the optimal level Directions to Meet Your Goals Take your medications as prescribed Follow your dietary instruction Follow activity as directed Keep your appointments as scheduled Take your immunizations and boosters as scheduled If your symptoms worsen call your PCP, if no PCP go to Urgent Care Center or Emergency Room Smoking is Dangerous to Your Health. Avoid second hand smoke Call the 24-hour hour crisis hotline for domestic abuse at Nikky Granados Oct 02, 2016 10:48
[2016-10-02 11:33] VITALS: BP 139/66; PULSE 80; RESP 18; TEMP 96.8; O2SAT 93
[2016-10-02 16:54] LABS: HEMOGLOBIN A1a 1.1 %; HEMOGLOBIN F 0.9 %; HEMOGLOBIN LA1C 1.5 %; HEMOGLOBIN P3 3.8 %
== END 2016-10-02 16:48 | disposition home or self-care (01) | DRG 460 ==
LOC: HSDI 09-29 09:17 → N06B 09-29 18:56
PROVIDERS: ADMIT Neurological Surgery; ATTEND Neurological Surgery
PROC: 0SG30A1 (ICD-10-PCS; 2016-09-29)
PROC: 01NB0ZZ Release Lumbar Nerve, Open Approach (ICD-10-PCS; 2016-09-29)
PROC: 0ST40ZZ Resection of Lumbosacral Disc, Open Approach (ICD-10-PCS; principal; 2016-09-29 12:46)
DX: M47.27 Other spondylosis with radiculopathy, lumbosacral region (principal); I10 Essential (primary) hypertension; F17.210 Nicotine dependence, cigarettes, uncomplicated; J44.9 Chronic obstructive pulmonary disease, unspecified; E78.5 Hyperlipidemia, unspecified; F41.9 Anxiety disorder, unspecified
CPT/HCPCS: 72100; 76000; 80048; 80076; 83036; 83735; 84100; 85007; 85025; 85027; 94150; C1713; C9113; J0131; J0690; J1170; J1580; J2250; J2370; J2405; J3010; J3370; J3480; J7040; J7050; J7120; J7512; L0484

== ENCOUNTER 2017-07-20 22:14 | Inpatient (IN) | payer OTHER ==
[~2017-07-20] VITALS: Ht 177.8 cm; Wt 85.2 kg
[2017-07-20] VITALS (7 sets, daily range): BP systolic 79–200; BP diastolic 50–101; PULSE 66–96; RESP 14–22; TEMP 96; O2SAT 94–100
[~2017-07-20 22:14] MED LIST changes: +DIAZ5TAB PO; +IBUP1TAB7 PO; +PRED10 PO; +SYMB160A INH; +TRAZ100T10 PO
[2017-07-20] MEDS ORDERED: SODIUM CHLORIDE 0.9% FLUSH 10 ML FLUSH IVF PRN ×2 (22:30)
[2017-07-20] MEDS ORDERED: fentaNYL DRIP 250 ML IV PRN (22:45)
[2017-07-20] MEDS ORDERED: MIDAZOLAM HCL 2 MG/2 ML VIAL IV PUSH ONE (22:45)
[2017-07-20] MEDS ORDERED: MIDAZOLAM 100 MG/100 ML INJ 100 ML IV PRN (22:45)
[2017-07-20] MEDS ORDERED: MIDAZOLAM HCL 5 MG/ML VIAL (1 ML) ONE (22:46)
[2017-07-20 22:51] LABS: AUTOMATED NEUTROPHIL # 11.2 TH/MM3 (1.8-7.7); BASOPHIL % 0.4 % (0.0-2.0); EOSINOPHIL % 0.1 % (0.0-4.0); HEMOGLOBIN 13.9 GM/DL (13.0-17.0); LYMPH % 8.3 % (9.0-44.0); LYMPHOCYTE # 1.1 TH/MM3 (1.0-4.8); MEAN CELL VOLUME 95.3 FL (80.0-100.0); MEAN CORPUSCULAR HEMOGLOBIN 32.4 PG (27.0-34.0); MEAN PLATELET VOLUME 9.3 FL (7.0-11.0); MONO % 9.6 % (0.0-8.0); MONOCYTE # 1.3 TH/MM3 (0-0.9); NEUT % 81.6 % (16.0-70.0); PLATELET COUNT 336 TH/MM3 (150-450); RED CELL DISTRIBUTION WIDTH 14.3 % (11.6-17.2); WHITE BLOOD COUNT 13.7 TH/MM3 (4.0-11.0)
[2017-07-20 23:20] LABS: BILIRUBIN, URINE NEG (NEG); BLOOD, URINE MOD (NEG); GLUCOSE,URINE NEG (NEG); KETONE, URINE NEG (NEG); NITRITE,URINE NEG (NEG); URINE COLOR YELLOW (YELLW/STRAW); URINE LEUKOCYTE ESTERASE NEG (NEG)
[2017-07-20 23:25] LABS: BACTERIA, URINE OCC /hpf; HYALINE CAST, URINE 46 /lpf (RARE); MUCUS URINE MANY /lpf (OCC)
--- NOTE | 2017-07-20 23:25 | RADRPT ---
EXAM DATE/TIME: 07/20/2017 22:51 [facility] COMPARISON: CHEST PA & LAT, October 15, 2009, 14:27. INDICATIONS : Post intubation MEDICAL HISTORY : Non-responsive SURGICAL HISTORY : Non-responsive ENCOUNTER: Initial ACUITY: 1 day PAIN SCORE: Non-responsive. LOCATION: Bilateral chest FINDINGS: Endotracheal tube and nasogastric tube are present in good position. Lungs are symmetrically aerated and grossly clear. No evidence of effusion. Cardiomediastinal contours are satisfactory. CONCLUSION: Satisfactory support line and tube positioning. No acute disease Lonnie Lock MD on July 20, 2017 at 23:22 Board Certified Radiologist. This report was verified electronically.
[2017-07-20 23:27] LABS: ALKALINE PHOSPHATASE 75 U/L (45-117); ALT (GPT) 107 U/L (12-78); AST (GOT) 165 U/L (15-37); BICARBONATE 23.7 MEQ/L (21.0-32.0); BLOOD UREA NITROGEN 31 MG/DL (7-18); CALCIUM 8.2 MG/DL (8.5-10.1); CHLORIDE 99 MEQ/L (98-107); CREATININE 3.82 MG/DL (0.60-1.30); GLOMERULAR FILTRATION RATE 16 ML/MIN (>89); GLUCOSE,RANDOM 115 MG/DL (74-106); SODIUM (NA) 134 MEQ/L (136-145); TOTAL BILIRUBIN ADULT 0.2 MG/DL (0.2-1.0); TOTAL PROTEIN 7.3 GM/DL (6.4-8.2); TROPONIN I LESS THAN 0.02 NG/ML (0.02-0.05)
[2017-07-20 23:28] LABS: ACETAMINOPHEN LESS THAN 2.0 MCG/ML (10.0-30.0)
[2017-07-20] MEDS ORDERED: CLINDAMYCIN 600 MG/NS PREMIX 50 ML IV ONE (23:30)
[2017-07-20] MEDS ORDERED: MIDAZOLAM 100 MG/NS 100 ML DRIP Premix IV PRN (23:30)
[2017-07-20] MEDS ORDERED: fentaNYL 2,500 MCG/NS 250 ML IV PRN (23:30)
[2017-07-20] MEDS ORDERED: PIPERACIL-TAZO 4.5 GM PREMIX 100 ML IV ONE (23:30)
[2017-07-20] MEDS ORDERED: MIDAZOLAM 50 MG/NS 50 ML DRIP Premix IV PRN (23:45)
--- NOTE | 2017-07-20 23:52 | HHI.HP ---
[facility] Service Critical Care Medicine Primary Care Physician Víctor Leung M.D. Admission Diagnosis Altered mental status/acute respiratory failure Diagnosis: (1) Acute respiratory failure Diagnosis: Principal (2) Tobacco abuse Diagnosis: Secondary (3) Hypertension Diagnosis: Secondary (4) Dyslipidemia Diagnosis: Secondary (5) COPD (chronic obstructive pulmonary disease) Diagnosis: Secondary (6) Lactic acidosis Diagnosis: Principal (7) Rhabdomyolysis Diagnosis: Principal (8) Hyponatremia Diagnosis: Secondary (9) Leukocytosis Diagnosis: Secondary (10) Tetrahydrocannabinol (THC) use disorder, mild, abuse Diagnosis: Secondary (11) Cocaine use Diagnosis: Principal (12) Toxic metabolic encephalopathy Diagnosis: Principal (13) Acute kidney injury Diagnosis: Principal (14) Hyperkalemia Diagnosis: Principal Chief Complaint: Patient unresponsive at home. Acute respiratory failure Travel History International Travel<30 Days: No Contact w/Intl Traveler <30 Da: No Traveled to Known Affected Are: No Sepsis Criteria SIRS Criteria (2 or more): RR > 20 or PaCO2 < 32, WBC > 83523, < 4000 or > 10 % bands History of Present Illness This is a 66-year-old male. Date of admission 07/20/2017. Past medical history includes hypertension, hyperlipidemia, COPD with ongoing tobacco abuse, peptic ulcer disease and anxiety. He also has history of lumbar stenosis, degenerative joint disease of the back and cervical spine. He presents to [facility] with the following history. 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 According to his at bedside, patient is drug tested. Patient returned home from work on Sunday after his 30 day work schedule. Patient was changing the tire of a bike friend yesterday. Patient returned home in no acute distress. Today, patient was tired and was sleeping all day. Initially patient had similar symptoms at lunch. When the attempted to wake him up later this evening patient be was nonresponsive with a weak pulse. She attempted to use ammonia without response. At that time EMS was called and patient was transferred to [facility]. Patient was noted to be an acute change with a creatinine of 3.8. Baseline is normal. Potassium is 7.4 without EKG changes. Patient received bicarbonate, insulin/D50, calcium and Kayexalate in the ED. Repeat potassium 3 hours. Patient is making urine and appears concentrated. UA is pending. Patient leukocytosis 13,000. CPK was 5000. Lactic acid was 2.6. Urine drug screen revealed positive for opiates, amphetamines, benzodiazepines, THC and cocaine. Head CT is currently pending. Due to altered mental status patient was admitted after receiving 20 mg etomidate and 100 mg succinylcholine by ED physician. Patient also received 4 mg of midazolam and after which patient became hypotensive is currently receiving 3 L normal saline wide open. Head CT is currently pending. Patient received clindamycin along with piperacillin/ tazobactam in the ED. Review of Systems ROS Limitations: Intubated, Altered Mental Status Past Family Social History Allergies: Coded Allergies: No Known Allergies (Verified Allergy, Unknown, 07/20/17) Past Medical History Essential hypertension Hyperlipidemia Depression/anxiety COPD with ongoing tobaccoism Degenerative joint disease in the lumbar and cervical spine History of colonic volvulus Peptic ulcer disease Past Surgical History History of lumbar laminectomy 1989, 1993 with another unknown date. With L5/S1 laminectomy with interbody arthrodesis using peek cage bone graft 10/02. History of cervical laminectomy 05/2003 History of left rotator cuff repair December 2002 Appendectomy Partial colectomy for volvulus Reported Medications Albuterol inhaler 18 g twice daily as needed Rosuvastatin 10 mg p.o. q. Sunday/Sunday/Sunday Amlodipine 5 mg p.o. daily Trazodone 100 mg nightly Budesonide/formoterol 160/4.5 1 puff twice daily Valsartan 320 mg p.o. daily Active Ordered Medications Reviewed in EMR Family History Father 73 secondary to GA. Mother 84 secondary to head trauma. Brother age 52 to gunshot wound. Social History Smokes 2 packs per day since age 17. Approximately 100 pack years. Social alcohol consumption. In the past, patient has denied any illicit drug use Physical Exam Vital Signs Vital Signs Date Time Temp Pulse Resp B/P (MAP) Pulse Ox O2 Delivery O2 Flow Rate FiO2 07/20/17 23:47 66 14 79/50 (60) 98 07/20/17 23:23 70 07/20/17 23:05 96.0 07/20/17 23:00 84 22 117/54 (75) 100 Ventilator 70 07/20/17 22:30 96 22 178/101 (126) 94 Ventilator 70 07/20/17 22:28 100 70 07/20/17 22:15 72 16 200/81 (948) 94 15.00 Physical Exam GENERAL: 66-year-old male currently orotracheally intubated SKIN: Warm and dry. Multiple tattoos bilateral upper extremities and thorax HEAD: Atraumatic. Normocephalic. EYES: Pupils equal and round. About 3 mm bilaterally reactive. Disconjugate gaze- the left. No scleral icterus. No injection or drainage. ENT: No nasal bleeding or discharge. Mucous membranes pink and moist. NECK: Trachea midline. No JVD. CARDIOVASCULAR: Regular rate and rhythm. S1, S2. No S4. Without murmur RESPIRATORY: Scattered coarse crackles appreciated bilaterally anteriorly posteriorly. Positive end expiratory wheezing. GASTROINTESTINAL: Abdomen soft, non-tender, slightly protuberant. Hypoactive bowel sounds are appreciated. MUSCULOSKELETAL: Extremities without significant peripheral edema. No obvious deformities. NEUROLOGICAL: Positive corneal reflex. Positive gag and cough. Withdraws to pain bilateral upper and lower extremities. Laboratory Laboratory Tests Test 07/20/17 22:30 07/20/17 22:50 07/20/17 23:12 White Blood Count 13.7 Red Blood Count 4.30 Hemoglobin 13.9 Hematocrit 41.0 Mean Corpuscular Volume 95.3 Mean Corpuscular Hemoglobin 32.4 Mean Corpuscular Hemoglobin Concent 34.0 Red Cell Distribution Width 14.3 Platelet Count 336 Mean Platelet Volume 9.3 Neutrophils (%) (Auto) 81.6 Lymphocytes (%) (Auto) 8.3 Monocytes (%) (Auto) 9.6 Eosinophils (%) (Auto) 0.1 Basophils (%) (Auto) 0.4 Neutrophils # (Auto) 11.2 Lymphocytes # (Auto) 1.1 Monocytes # (Auto) 1.3 Eosinophils # (Auto) 0.0 Basophils # (Auto) 0.0 CBC Comment AUTO DIFF Differential Comment AUTO DIFF CONFIRMED Platelet Estimate NORMAL Platelet Morphology Comment NORMAL Red Cell Morphology Comment NORMAL Blood Urea Nitrogen 31 Creatinine 3.82 Random Glucose 115 Total Protein 7.3 Albumin 4.0 Calcium Level 8.2 Alkaline Phosphatase 75 Aspartate Amino Transf (AST/SGOT) 165 Alanine Aminotransferase (ALT/SGPT) 107 Total Bilirubin 0.2 Sodium Level 134 Potassium Level 7.4 Chloride Level 99 Carbon Dioxide Level 23.7 Anion Gap 11 Estimat Glomerular Filtration Rate 16 Troponin I LESS THAN 0.02 Salicylates Level 4.0 Acetaminophen Level LESS THAN 2.0 Ethyl Alcohol Level LESS THAN 3 Urine Color YELLOW Urine Turbidity CLEAR Urine pH 6.0 Urine Specific [place] 1.018 Urine Protein 300 OR GREATER Urine Glucose (UA) NEG Urine Ketones NEG Urine Occult Blood MOD Urine Nitrite NEG Urine Bilirubin NEG Urine Urobilinogen 0.2 Urine Leukocyte Esterase NEG Urine RBC 3 Urine WBC 16 Urine Bacteria OCC Urine Hyaline Casts 46 Urine Mucus MANY Microscopic Urinalysis Comment CULTURE INDICATED Urine Opiates Screen POS Urine Barbiturates Screen NEG Urine Amphetamines Screen POS Urine Benzodiazepines Screen POS Urine Cocaine Screen POS Urine Cannabinoids Screen POS Date/Time Source Procedure Growth Status 07/20/17 22:50 Urine Clean Catch Urine Culture Pending Received Result Diagram: 07/20/17222907/20/172229 Imaging Last Impressions Chest X-Ray 07/20/172224 Signed Impressions: Service Date/Time: Thursday, July 20, 2017 22:51 - CONCLUSION: Satisfactory support line and tube positioning. No acute disease Lonnie Lock MD Septic Shock Reassessment Septic shock perfusion: reassessment completed Caprini VTE Risk Assessment Caprini VTE Risk Assessment: Mod/High Risk (score >= 2) Caprini Risk Assessment Model Point Value = 1 Point Value = 2 Point Value = 3 Point Value = 5 Age 41-60 Minor surgery BMI > 25 kg/m2 Swollen legs Varicose veins or History of unexplained or recurrent spontaneous Oral contraceptives or hormone replacement Sepsis (< 1 month) Serious lung disease, including pneumonia (< 1 month) Abnormal pulmonary function Acute myocardial infarction Congestive heart failure (< 1 month) History of inflammatory bowel disease Medical patient at bed rest Age 61-74 Arthroscopic surgery Major open surgery (> 45 min) Laparoscopic surgery (> 45 min) Malignancy Confined to bed (> 72 hours) Immobilizing plaster cast Central venous access Age >= 75 History of VTE Family history of VTE Factor V Leiden Prothrombin [id number] Lupus anticoagulant Anticardiolipin antibodies Elevated serum homocysteine Heparin-induced thrombocytopenia Other congenital or acquired thrombophilia Stroke (< 1 month) Elective arthroplasty Hip, pelvis, or leg fracture Acute spinal cord injury (< 1 month) Prophylaxis Regimen Total Risk Factor Score Risk Level Prophylaxis Regimen 0-1 Low Early ambulation 2 Moderate Order ONE of the following: *Sequential Compression Device (SCD) *Heparin 5000 units SQ BID 3-4 Higher Order ONE of the following medications: *Heparin 5000 units SQ TID *Enoxaparin/Lovenox 40 mg SQ daily (WT < 150 kg, CrCl > 30 mL/min) *Enoxaparin/Lovenox 30 mg SQ daily (WT < 150 kg, CrCl > 10-29 mL/min) *Enoxaparin/Lovenox 30 mg SQ BID (WT < 150 kg, CrCl > 30 mL/min) AND/OR *Sequential Compression Device (SCD) 5 or more Highest Order ONE of the following medications: *Heparin 5000 units SQ TID (Preferred with Epidurals) *Enoxaparin/Lovenox 40 mg SQ daily (WT < 150 kg, CrCl > 30 mL/min) *Enoxaparin/Lovenox 30 mg SQ daily (WT < 150 kg, CrCl > 10-29 mL/min) *Enoxaparin/Lovenox 30 mg SQ BID (WT < 150 kg, CrCl > 30 mL/min) AND *Sequential Compression Device (SCD) Assessment and Plan Assessment and Plan Neuro/Psych: Toxic metabolic encephalopathy Patient is currently a propofol/fentanyl drips ordered for sedation/analgesia while intubated Goal of RA SS -[address] brain - There is patchy mild diminished attenuation in centrum semi-ovale bilaterally. There is mild heterogeneous diminished density in the genu region of internal capsules and globus pallidus bilaterally. There is vague diminished density in the cerebellar hemispheres bilaterally. There is no evidence of intracranial mass or hemorrhage. There is no abnormal extra-axial fluid accumulation or shift present. MRI brain ordered EEG ordered Holding trazodone 100 mg at night/home medication for depression/anxiety UDS + opiates, amphetamines, benzodiazepines, THC and cocaine CV: History of essential hypertension Hyperlipidemia Lactic acidosis Troponin less than 0.02. Received 3 L normal saline in ED. Currently on normal saline at 100 cc an hour Serial lactates until cleared Holding valsartan 320 mg p.o. daily due to hypotension/acute kidney injury Holding rosuvastatin 10 mg p.o. q. Sunday/Sunday/Sunday due to elevated LFTs. Resume when clinically indicated Resp: Acute hypoxemic respiratory failure secondary to altered mental status Tobacco abuse [facility] 18/ Ventilator bundle Albuterol/ipratropium aerosols every 6 hours with albuterol aerosol every 2 hours as needed dyspnea Add budesonide 0.5/2 1 inhalation twice daily since on budesonide/formoterol 160 /4.5 1 puff twice daily at home along with albuterol inhaler twice daily Self-education cessation booklet will be provided when clinically appropriate GI: Elevated transaminases Likely rhabdomyolysis/underlying drug use. Liver ultrasound ordered/hepatitis panel ordered and CPK N.p.o. status NG tube to low intermittent wall suction Lansoprazole for GI prophylaxis Docusate/senna 1 tablet twice daily for bowel regimen : Garner catheter has been placed for accurate I's and O's in a critically ill patient Endo: Sliding scale insulin with NovoLog with Accu-Cheks every 6 hours to maintain euglycemia/low regimen Hemoglobin A1c documented at 6.1 in the past Renal: Acute kidney injury Rhabdomyolysis Currently on normal saline at 100 cc an hour Monitor urine output Accurate I's and O's Renal ultrasound pending Urine eosinophils and electrolytes ordered Avoid nephrotoxic drugs Recheck CPK within 6 hours and adjust IV fluids accordingly Heme: Leukocytosis Monitor CBC daily. Follow trend Coags currently pending ID: Received piperacillin/tazobactam and clindamycin ED for possible aspiration Piperacillin/tazobactam, azithromycin and vancomycin 1 now. Blood cultures 2, UA, sputum and influenza all pending FEN: Hyponatremia Hypopotassemia Hypocalcemia Received D50/insulin/bicarbonate, Kayexalate and calcium gluconate 1. Recheck this morning. MSK: History of multiple lumbar/cervical spine surgeries PT evaluate and treat Access -Utilize peripheral IV. Central line if indicated Prophylaxis -GI -lansoprazole -DVT -SCD/holding pharmacological prophylaxis pending CT brain Critical Care: The total critical care time was 35 minutes. Time to perform other separately billable procedures was not included in the critical care time. Code Status Full code Discussed Condition With at bedside. Dr. Lanza. Care plan discussed and all questions answered. Problem Qualifiers (1) Acute respiratory failure: Qualified Codes: J96.01 - Acute respiratory failure with hypoxia; J96.02 - Acute respiratory failure with hypercapnia (2) Hypertension: Qualified Codes: I10 - Essential (primary) hypertension (3) COPD (chronic obstructive pulmonary disease): Qualified Codes: J44.9 - Chronic obstructive pulmonary disease, unspecified (4) Rhabdomyolysis: Qualified Codes: M62.82 - Rhabdomyolysis (5) Leukocytosis: Qualified Codes: D72.829 - Elevated white blood cell count, unspecified Singh Romero MD July 20, 2017 23:52
[2017-07-20] MEDS: DEXTROSE 50% IN WATER 50 ML SYRINGE IV PUSH ONE (23:59)
[2017-07-21] VITALS (30 sets, daily range): BP systolic 69–135; BP diastolic 45–76; PULSE 58–89; RESP 18–37; TEMP 97.6–99.6; O2SAT 92–100
[2017-07-21] MEDS ORDERED: ONDANSETRON HCL 4 MG/2 ML VIAL IV PUSH PRN
[2017-07-21] MEDS ORDERED: LACTULOSE SYRUP 20 GM/30 ML CUP PO PRN
[2017-07-21] MEDS ORDERED: SODIUM BICARBONATE 8.4% SOLN 50 MEQ/50 ML VIAL SLOW IVP ONE
[2017-07-21] MEDS ORDERED: INSULIN HUMAN REGULAR 1,000 UNITS/10 ML VIAL IV PUSH ONE ×2
[2017-07-21] MEDS ORDERED: GLUCAGON 1 MG/ML VIAL OTHER PRN
[2017-07-21] MEDS: DEXTROSE 50% IN WATER 50 ML SYRINGE IV PUSH ONE
[2017-07-21] MEDS ORDERED: DEXTROSE 50% IN WATER 50 ML VIAL(D50) IV PUSH PRN
[2017-07-21] MEDS ORDERED: BISACODYL 10 MG SUPP RECTAL PRN
[2017-07-21] MEDS ORDERED: PROPOFOL 1000 MG/100 ML INJ 100 ML IV PRN
[2017-07-21] MEDS ORDERED: MAGNESIUM HYDROXIDE SUSP 30 ML CUP PO PRN
[2017-07-21] MEDS ORDERED: DOPamine 800 MG/500 ML INJ 500 ML IV PRN
[2017-07-21] MEDS ORDERED: SODIUM POLYSTYRENE SULFONATE SUSP 15 GM/60 ML CUP PO ONE
[2017-07-21] MEDS ORDERED: CALCIUM GLUCONATE 10% 1 GM/10 ML VIAL SLOW IVP ONE
[2017-07-21] MEDS ORDERED: NURSING INFORMATION XX SCH
[2017-07-21] MEDS ORDERED: DEXTROSE 50% IN WATER 50 ML VIAL(D50) IV PUSH ONE
[2017-07-21] MEDS ORDERED: SENNOSIDES 8.6 MG TAB PO PRN
[2017-07-21] MEDS ORDERED: SODIUM CHLORIDE 0.9% FLUSH 10 ML FLUSH IV FLUSH PRN
[2017-07-21] MEDS ORDERED: CHLORHEXIDINE GLUCONATE 2 % 1 PACK (2 CLOTHS) TOP PRN
[2017-07-21] MEDS ORDERED: DOPamine 400 MG/250 ML INJ 250 ML ONE (00:03)
[2017-07-21] MEDS: RESP: ALBUTEROL 2.5 MG/3 ML NEB (PRN) INH (00:17)
[2017-07-21] MEDS ORDERED: TERBUTALINE INJ 1 MG/ML AMP SQ PRN ×2 (00:30)
[2017-07-21] MEDS ORDERED: SUCCINYLCHOLINE CHLORIDE 100 MG/5 ML SYRINGE IV PUSH ONE (00:30)
[2017-07-21] MEDS ORDERED: NOREPINEPHRINE INJ 4 MG in SODIUM CHLOR 0.9% 250 ML INJ 246 ML IV PRN (00:30)
[2017-07-21] MEDS ORDERED: VANCOMYCIN INJ 1,000 MG in SODIUM CHLOR 0.9% 250 ML INJ 250 ML IV ONE (00:30)
[2017-07-21] MEDS ORDERED: NALOXONE HCL 2 MG/2 ML VIAL IV PUSH ONE (00:30)
[2017-07-21] MEDS ORDERED: ETOMIDATE 20 MG/10 ML VIAL IV PUSH ONE (00:30)
[2017-07-21 00:51] LABS: INTERNATIONAL NORMALIZED RATIO 1.3 RATIO
[2017-07-21 01:02] LABS: CREATININE, RANDOM URINE 185.4 MG/DL
--- NOTE | 2017-07-21 01:24 | RADRPT ---
EXAM DATE/TIME: 07/21/2017 00:53 [facility] COMPARISON: No previous studies available for comparison. INDICATIONS : Altered mental status. RADIATION DOSE: 52.13 CTDIvol (mGy) MEDICAL HISTORY : Hypertension. Chronic obstructive pulmonary disease. Asthma SURGICAL HISTORY : Appendectomy. Colon resection.Cervical and lumbar fusion ENCOUNTER: Initial ACUITY: 1 day PAIN SCALE: 5/10 LOCATION: cranial TECHNIQUE: Multiple contiguous axial images were obtained of the head. Using automated exposure control and adj ustment of the mA and/or kV according to patient size, radiation dose was kept as low as reasonably a chievable to obtain optimal diagnostic quality images. DICOM format image data is available electro nically for review and comparison. FINDINGS: The brain is abnormal in appearance. There is patchy mild diminished attenuation in centrum semi-oval e bilaterally. There is mild heterogeneous diminished density in the genu region of internal capsules and globus pallidus bilaterally. There is vague diminished density in the cerebellar hemispheres trever aterally. There is no evidence of intracranial mass or hemorrhage. There is no abnormal extra-axial f luid accumulation or shift present. There is fluid in the right maxillary sinus and in ethmoid air cells. CONCLUSION: Abnormal brain appearance. Recommend MRI for further evaluation Lonnie Lock MD on July 21, 2017 at 1:16 Board Certified Radiologist. This report was verified electronically.
[2017-07-21] MEDS: SODIUM CHLOR 0.9% 1000 ML INJ 1,000 ML IV SCH ×4 (02:12→19:55)
[2017-07-21] MEDS: AZITHROMYCIN INJ 500 MG in SODIUM CHLOR 0.9% 250 ML INJ 250 ML IV SCH (02:59)
[2017-07-21] MEDS ORDERED: LACTATED RINGER'S 1000 ML INJ 1,000 ML IV ONE (03:15)
[2017-07-21] MEDS: INSULIN ASPART SUPPLEMENTAL SCALE SQ SCH ×4 (03:21→18:00)
[2017-07-21] MEDS: CHLORHEXIDINE GLUCONATE 2 % 1 PACK (2 CLOTHS) TOP SCH (03:29)
[2017-07-21 05:19] LABS: AUTOMATED NEUTROPHIL # 8.4 TH/MM3 (1.8-7.7); BASOPHIL % 0.2 % (0.0-2.0); EOSINOPHIL % 0.1 % (0.0-4.0); HEMATOCRIT 39.1 % (39.0-51.0); HEMOGLOBIN 13.1 GM/DL (13.0-17.0); LYMPH % 10.9 % (9.0-44.0); LYMPHOCYTE # 1.1 TH/MM3 (1.0-4.8); MEAN CELL VOLUME 94.7 FL (80.0-100.0); MEAN CORPUSCULAR HEMOGLOBIN 31.8 PG (27.0-34.0); MEAN CORPUSCULAR HGB CONC 33.6 % (32.0-36.0); MEAN PLATELET VOLUME 7.6 FL (7.0-11.0); MONO % 8.2 % (0.0-8.0); MONOCYTE # 0.9 TH/MM3 (0-0.9); NEUT % 80.6 % (16.0-70.0); PLATELET COUNT 226 TH/MM3 (150-450); RED BLOOD COUNT 4.12 MIL/MM3 (4.50-5.90); RED CELL DISTRIBUTION WIDTH 14.1 % (11.6-17.2); WHITE BLOOD COUNT 10.5 TH/MM3 (4.0-11.0)
[2017-07-21 05:39] LABS: INTERNATIONAL NORMALIZED RATIO 1.1 RATIO; PROTHROMBIN TIME - PATIENT 10.7 SEC (9.8-11.6)
[2017-07-21 07:16] LABS: CALCIUM 7.8 MG/DL (8.5-10.1); CREATININE 2.52 MG/DL (0.60-1.30); MAGNESIUM 2.5 MG/DL (1.5-2.5); PHOSPHORUS 4.4 MG/DL (2.5-4.9)
[2017-07-21 07:17] LABS: BICARBONATE 25.3 MEQ/L (21.0-32.0)
[2017-07-21] MEDS: RESP: ALBUTEROL 2.5 MG/IPRATROPIUM 0.5 MG NEB (SCH) INH ×3 (07:30→20:17)
[2017-07-21] MEDS: RESP: BUDESONIDE 0.5 MG/2 ML NEB NEB SCH ×2 (07:30→20:17)
[2017-07-21] MEDS: CHLORHEXIDINE 0.12% (ORAL KIT) 15 ML CUP MT SCH ×2 (08:00→20:00)
[2017-07-21] MEDS: DOCUSATE SODIUM 50 MG/SENNA 8.6 MG TAB PO SCH ×2 (08:06→21:00)
[2017-07-21] MEDS: SODIUM CHLORIDE 0.9% FLUSH 10 ML FLUSH IV FLUSH SCH ×2 (08:07→21:23)
[2017-07-21] MEDS: ARTIFICIAL TEARS OPTH SOLN 15 ML BTL EACH EYE SCH ×3 (08:07→18:00)
[2017-07-21] MEDS: LANSOPRAZOLE SOLUTAB 30 MG TAB G-TUBE SCH (08:07)
[2017-07-21] MEDS ORDERED: SODIUM CHLOR 0.9% 1000 ML INJ 1,000 ML IV ONE ×2 (09:00)
--- NOTE | 2017-07-21 09:12 | HHI.CCPN ---
Subjective Remarks/Hospital Course This is a 66-year-old male. Date of admission 07/20/2017. Past medical history includes hypertension, hyperlipidemia, COPD with ongoing tobacco abuse, peptic ulcer disease and anxiety. He also has history of lumbar stenosis, degenerative joint disease of the back and cervical spine. He presents to [facility] with the following history. 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 According to his at bedside, patient is drug tested. Patient returned home from work on Sunday after his 30 day work schedule. Patient was changing the tire of a bike friend yesterday. Patient returned home in no acute distress. Today, patient was tired and was sleeping all day. Initially patient had similar symptoms at lunch. When the attempted to wake him up later this evening patient be was nonresponsive with a weak pulse. She attempted to use ammonia without response. At that time EMS was called and patient was transferred to [facility]. Patient was noted to be an acute change with a creatinine of 3.8. Baseline is normal. Potassium is 7.4 without EKG changes. Patient received bicarbonate, insulin/D50, calcium and Kayexalate in the ED. Repeat potassium 3 hours. Patient is making urine and appears concentrated. UA is pending. Patient leukocytosis 13,000. CPK was 5000. Lactic acid was 2.6. Urine drug screen revealed positive for opiates, amphetamines, benzodiazepines, THC and cocaine. Head CT is currently pending. Due to altered mental status patient was admitted after receiving 20 mg etomidate and 100 mg succinylcholine by ED physician. Patient also received 4 mg of midazolam and after which patient became hypotensive is currently receiving 3 L normal saline wide open. Head CT is currently pending. Patient received clindamycin along with piperacillin/ tazobactam in the ED. Subjective: 5/5: Overnight the patient required to protamine infusion low-dose currently being weaned off. The patient continues on fentanyl and propofol infusion for ventilator synchrony. Patient's undergoing MRI evaluation results pending. The patient was noted to have significant elevation in creatinine kinase the patient is bolused 1 L IV fluids increase in normal saline 200 cc/hr. Lactic acid downtrending will continue to trend creatinine noted to be decreasing. Objective Vital Signs Date Time Temp Pulse Resp B/P (MAP) Pulse Ox O2 Delivery O2 Flow Rate FiO2 5/5/18 07:30 98 40 07/21/17 06:00 78 18 114/61 (78) 07/21/17 04:00 98.6 07/21/17 00:55 Ventilator 07/20/17 22:15 15.00 Intake and Output 07/21/17 07/21/17 07/22/17 08:00 16:00 00:00 Intake Total 4410 ml Output Total 1925 ml Balance 2485 ml Result Diagram: 07/21/17 0503 07/21/17 0503 Other Results Microbiology Date/Time Source Procedure Growth Status 07/20/17 22:50 Urine Catheterized Urine Legionella Antigen - Final PRESUMPTIVE NEGATIVE FOR LEGIONELLA P... Complete 07/20/17 22:50 Urine Catheterized Urine Streptococcus pneumoniae Antigen (M - Final PRESUMPTIVE NEGATIVE FOR STREPTOCOCCU... Complete Laboratory Tests Test 07/21/17 00:00 07/21/17 04:58 Blood Gas Puncture Site RT FEMORAL LT RADIAL Blood Gas Patient Temperature 98.6 98.6 Blood Gas HCO3 23 mmol/L (22-26) 26 mmol/L (22-26) Blood Gas Base Excess -5.0 mmol/L (-2-2) -0.4 mmol/L (-2-2) Blood Gas Oxygen Saturation 95 % (90-100) 90 % (90-100) Arterial Blood pH 7.16 (7.380-7.420) 7.27 (7.380-7.420) Arterial Blood Partial Pressure CO2 67 mmHg (38-42) 59 mmHg (38-42) Arterial Blood Partial Pressure O2 315 mmHG (61-120) 75 mmHg (61-120) Arterial Blood Oxygen Content 15.9 Vol % (12.0-20.0) 16.4 Vol % (12.0-20.0) Arterial Blood Carboxyhemoglobin 1.5 % (0-4) 0.0 % (0-4) Arterial Blood Methemoglobin 0.7 % (0-2) 1.0 % (0-2) Blood Gas Hemoglobin 11.4 G/DL (12.0-16.0) 12.9 G/DL (12.0-16.0) Oxygen Delivery Device VENTILATOR VENTILATOR Blood Gas Ventilator Setting [facility]-AC Blood Gas Inspired Oxygen 70 % 50 % Imaging Last Impressions Head CT [id number] Signed Impressions: Service Date/Time: Friday, July 21, 2017 00:53 - CONCLUSION: Abnormal brain appearance. Recommend MRI for further evaluation Lonnie Lock MD Chest X-Ray 07/20/172224 Signed Impressions: Service Date/Time: Thursday, July 20, 2017 22:51 - CONCLUSION: Satisfactory support line and tube positioning. No acute disease Lonnie Lock MD Last Impressions Chest X-Ray 07/20/172224 Signed Impressions: Service Date/Time: Thursday, July 20, 2017 22:51 - CONCLUSION: Satisfactory support line and tube positioning. No acute disease Lonnie Lock MD Objective Remarks GENERAL: 66-year-old male currently orotracheally intubated SKIN: Warm and dry. Multiple tattoos bilateral upper extremities and thorax HEAD: Atraumatic. Normocephalic. EYES: Pupils equal and round. About 3 mm bilaterally reactive. Disconjugate gaze- the left. No scleral icterus. No injection or drainage. ENT: No nasal bleeding or discharge. Mucous membranes pink and moist. NECK: Trachea midline. No JVD. CARDIOVASCULAR: Regular rate and rhythm. S1, S2. No S4. Without murmur RESPIRATORY: Scattered coarse crackles appreciated bilaterally anteriorly posteriorly. Positive end expiratory wheezing. GASTROINTESTINAL: Abdomen soft, non-tender, slightly protuberant. Hypoactive bowel sounds are appreciated. MUSCULOSKELETAL: Extremities without significant peripheral edema. No obvious deformities. NEUROLOGICAL: Positive corneal reflex. Positive gag and cough. Withdraws to pain bilateral upper and lower extremities. A/P Assessment and Plan Neuro/Psych: Toxic metabolic encephalopathy Polysubstance abuse disorder Depression Anxiety disorder Possible Anoxic Brain injury Patient is currently a propofol/fentanyl drips for sedation/analgesia and ventilator synchrony Maintain goal of RASS -2 Daily sedation vacation when clinically appropriate will await results of MRI CT brain - There is patchy mild diminished attenuation in centrum semi-ovale bilaterally. There is mild heterogeneous diminished density in the genu region of internal capsules and globus pallidus bilaterally. There is vague diminished density in the cerebellar hemispheres bilaterally. There is no evidence of intracranial mass or hemorrhage. There is no abnormal extra-axial fluid accumulation or shift present. 07/21 MRI brain-Multifocal areas of restricted diffusion/recent ischemia within the centrum semiovale bilaterally, bilateral occipital lobes, bilateral basal ganglia, bilateral temporal lobes, and bilateral cerebellar hemispheres. Findings could be related to global anoxic event or less likely embolic phenomenon. 07/21 EEG pending 07/21- CTA Neck- No acute neck arteriovascular abnormality is identified. There is no significant stenosis within either internal carotid artery. 07/21-carotid Dopplers ordered Neurology consulted-Dr. Rodarte Holding trazodone 100 mg at night/home medication for depression/anxiety ASA 81mg/day UDS + opiates, amphetamines, benzodiazepines, THC and cocaine CV: History of essential hypertension Hyperlipidemia Lactic acidosis Initial troponin < 0.02. Received 3 L normal saline in ED. Currently on normal saline at 100 cc an hour Continue serial lactates until cleared Holding valsartan 320 mg p.o. daily due to hypotension/acute kidney injury Holding rosuvastatin 10 mg p.o. q. Sunday/Sunday/Sunday due to elevated LFTs. Resume when clinically indicated Dopamine 2 mcgs, continue to wean Obtain echo Resp: Acute hypoxemic respiratory failure secondary to altered mental status Tobacco use disorder [facility] / Ventilator bundle Albuterol/ipratropium aerosols every 6 hours with albuterol aerosol every 2 hours as needed dyspnea Add budesonide 0.5/2 1 inhalation twice daily since on budesonide/formoterol 160 /4.5 1 puff twice daily at home along with albuterol inhaler twice daily Self-education cessation booklet will be provided when clinically appropriate Obtain Chest x-rays and ABGs when clinically indicated GI: Elevated transaminases Rhabdomyolysis Trend CK levels-5000->59774 07/21-bolus 1 L normal saline F/U Liver ultrasound ordered hepatitis panel-negative Maintain n.p.o.status NG tube to low intermittent wall suction Lansoprazole for GI prophylaxis Docusate/senna 1 tablet twice daily for bowel regimen : Garner catheter has been placed for accurate I's and O's in a critically ill patient Endo: Sliding scale insulin with NovoLog with Accu-Cheks every 6 hours to maintain euglycemia/low regimen Hemoglobin A1c documented at 6.1 , follow-up hemoglobin A1c Renal: Acute kidney injury Rhabdomyolysis Increase normal saline 200cc/hr Monitor urine output Accurate I's and O's Renal ultrasound pending Urine eosinophils and electrolytes ordered Avoid nephrotoxic drugs Recheck CPK within 6 hours and adjust IV fluids accordingly Heme: Leukocytosis Monitor CBC daily. Follow trend SQ Heparin initiated per Dr. Hernandez ID: Received piperacillin/tazobactam and clindamycin ED for possible aspiration Empiric antibiotics- Zosyn, vancomycin Blood cultures 2, UA, sputum and influenza all pending Strep pneumo, Legionella urine antigens-negative FEN: Electrolyte derangement Hyperkalemia-resolved / Received D50/insulin/bicarbonate, Kayexalate and calcium gluconate 1. Recheck this morning. Monitor BMP, 07/21 potassium normalized 4.7 MSK: History of multiple lumbar/cervical spine surgeries PT evaluate and treat Access -Utilize peripheral IV. Central line if indicated Prophylaxis -GI -lansoprazole -DVT -SCD/ Heparin SQ my billing statement This patient remains critically ill with one or more organ systems which are or may become a threat to life. I have spent in excess of 30 minutes discontinuously in the care and management of this patient. This time is exclusive of procedures, and includes, but is not limited to, evaluation of the patient, review of the medical record, discussions with family, consultants, nursing staff, or respiratory therapy, and documentation in the medical record. Physician Radha Khanna MD July 21, 2017 09:12
--- NOTE | 2017-07-21 10:00 | RADRPT ---
EXAM DATE/TIME: 07/21/2017 08:40 [facility] COMPARISON: CT BRAIN W/O CONTRAST, July 21, 2017, 0:53. INDICATIONS : Altered mental status. Unresponsive. MEDICAL HISTORY : Hypertension. Diabetes mellitus type 2. SURGICAL HISTORY : Colon resection. Fusion, cervical. ENCOUNTER: Initial ACUITY: 1 day PAIN SCORE: 0/10 LOCATION: cranial TECHNIQUE: Multiplanar, multisequence MRI of the brain was performed without contrast. FINDINGS: CEREBRUM: Ventricles are normal in size. There is abnormal restricted diffusion and edema within the basal gang steve bilaterally, within the centrum semiovale bilaterally, mesial temporal lobes, and in the bilatera l occipital regions. No midline shift or herniation is present. WHITE MATTER: There is periventricular white matter increased signal. POSTERIOR FOSSA: There is abnormal edema within the cerebellar hemispheres bilaterally with associated restricted diff usion. Fourth ventricle is normal in size. DIFFUSION IMAGING: There is multifocal areas of restricted diffusion including within patchy areas of the centrum semiov cesia bilaterally, focally in the right parietal lobe, bilaterally in the occipital lobes, in the mesia l temporal lobes bilaterally, in the basal ganglia bilaterally, and in the cerebellar hemispheres trever aterally. EXTRACRANIAL: There is a mucoperiosteal thickening throughout the ethmoid, sphenoid, and axillary sinuses. CONCLUSION: Multifocal areas of restricted diffusion/recent ischemia within the centrum semiovale bilaterally, bi lateral occipital lobes, bilateral basal ganglia, bilateral temporal lobes, and bilateral cerebellar hemispheres. Findings could be related to global anoxic event or less likely embolic phenomenon. Lonnie Ross MD on July 21, 2017 at 9:50 Board Certified Radiologist. This report was verified electronically.
--- NOTE | 2017-07-21 10:03 | RADRPT ---
EXAM DATE/TIME: 07/21/2017 08:40 [facility] COMPARISON: No previous studies available for comparison. INDICATIONS : Altered mental status. Unresponsive. MEDICAL HISTORY : Hypertension. Diabetes mellitus type 2. SURGICAL HISTORY : Fusion, cervical. Colon resection. ENCOUNTER: Initial ACUITY: 1 day PAIN SCORE: 0/10 LOCATION: cranial Please note a normal MRA of the brain does not entirely exclude the possibility of a small aneurysm, nor the possibility of distal intracranial vessel disease. TECHNIQUE: 3D time of flight MRA was performed. Source images, multiplanar STS MIP, and 3D volume MIP reconstru ctions were reviewed. FINDINGS: Anterior circulation: The internal carotid arteries demonstrate no abnormality or atherosclerotic change. A1 segments and m ore distal anterior cerebral arteries are symmetric and within normal limits. The middle cerebral art joe branches demonstrate symmetric flow related enhancement. No aneurysm or high-grade stenosis is id entified. Posterior circulation: There are patent posterior cerebral arteries bilaterally. Left vertebral artery is dominant. There is minimal flow in the right vertebral artery which is likely atrophic on a congenital basis. The basil ar artery and posterior cerebral arteries demonstrate no significant stenosis or abnormality. No aneu rysm is visualized. CONCLUSION: No acute intracranial vascular abnormality is identified. Lonnie Ross MD on July 21, 2017 at 9:58 Board Certified Radiologist. This report was verified electronically.
--- NOTE | 2017-07-21 10:05 | RADRPT ---
EXAM DATE/TIME: 07/21/2017 08:40 [facility] COMPARISON: No previous studies available for comparison. INDICATIONS : Altered mental status. MEDICAL HISTORY : Diabetes mellitus type 2. Hypertension. SURGICAL HISTORY : Fusion, cervical. Colon resection. ENCOUNTER: Initial ACUITY: 1 day PAIN SCORE: 0/10 LOCATION: cranial Percent stenosis is calculated using the diameter of the stenotic region over the diameter of the nor mal distal internal carotid artery. TECHNIQUE: 3D time of flight MRA of the extracranial circulation was performed using a neurovascular coil. Post processing was performed including rotating subvolume maximum intensity projections of each carotid artery, rotating full-volume maximum intensity projections of both carotid arteries, sagittal and cor onal sliding thin-slab reformations of each carotid artery, and left oblique sliding thin slab reform ation through the aortic arch to include the origin of the arch branch vessels. FINDINGS: AORTIC ARCH: There is a three vessel origin of the great vessels from the aorta. No evidence of ostial narrowing. RIGHT CAROTID: The right carotid system demonstrates no significant stenosis or acute abnormality. No significant in ternal carotid artery stenosis is present. LEFT CAROTID: Left carotid system demonstrates no significant stenosis or acute abnormality. There is no significan t stenosis of the internal carotid artery. VERTEBRALS: Left vertebral artery is dominant. CONCLUSION: No acute neck arteriovascular abnormality is identified. There is no significant stenosis within [facility] internal carotid artery. Lonnie Ross MD on July 21, 2017 at 10:01 Board Certified Radiologist. This report was verified electronically.
[2017-07-21] MEDS: fentaNYL DRIP 250 ML IV PRN (10:27)
[2017-07-21] MEDS: PIPERACIL-TAZO 2.25 GM PREMIX 50 ML IV SCH ×2 (10:30→14:43)
[2017-07-21] MEDS ORDERED: ASPIRIN 81 MG CHEW TAB CHEW SCH (13:00)
[2017-07-21] MEDS: ASPIRIN 300 MG SUPP RECTAL SCH (14:00)
--- NOTE | 2017-07-21 14:37 | MB ---
cc: Judd Castillo MD DATE: 07/21/2017 HISTORY OF PRESENT ILLNESS: A 66-year-old man with a remote history of drug use, was unresponsive, brought into the hospital. He had low back surgery in 09/2016. He was admitted yesterday with hypertension, hyperlipidemia, COPD, tobacco abuse, peptic ulcer disease, lumbar stenosis, DJD, cervical spine also. 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 His could not be woken up, had a weak pulse. She could not wake the patient. She called electrical logging operator. PAST MEDICAL HISTORY: As above, also depression, anxiety, colonic volvulus, peptic ulcer disease. PAST SURGICAL HISTORY: Surgery to the low back and cervical spine. MEDICATIONS AT HOME: 1. Rosuvastatin. 2. Inhaler. 3. Amlodipine. 4. Trazodone 100 at night. 5. Budesonide. 6. Valsartan. FAMILY HISTORY: Father with an CO, mother with head trauma, brother with a gunshot wound. SOCIAL HISTORY: He is a heavy smoker, occasionally drinks. No drug use in the past. PHYSICAL EXAMINATION: VITAL SIGNS: He is afebrile, 107/63, 18, 76. NECK: There are no carotid bruits. HEART: Regular rate and rhythm. I do not detect a murmur. NEUROLOGIC: Pupils are equal. He is on fentanyl, on a vent. The nurse tells me he was moving things to command before, but seemed a little bit weaker on his left than his right. At this time, he moves his face symmetrically and gags on the vent as I try to examine him. He is flaccid throughout. His toes are downgoing bilaterally. There is no ankle clonus. LABORATORY DATA: CBC is normal; initially was 18,000. ABG initially 7.16, 67, 315. Followup ABG 7.27, 59, 75. Basic metabolic profile: Potassium was 7.4, creatinine 3.8. Creatinine now down to 2.5 with a BUN of 27. His glucose was normal. LFTs: AST 165, ALT 107. CPK was 5000, has come up to 27,000. Troponin was negative. Albumin was normal. Coags negative. Urine drug screen was positive for opiates, amphetamines, benzos, cocaine and marijuana. UA had 300 protein, 16 white cells. IMAGING STUDIES: MRI of the brain shows what appear to be likely anoxic changes versus a PRES-type syndrome to bilateral cerebellum and also bilateral basal ganglia. He has also had multiple smaller infarcts bilaterally across the bilateral MCA and [employer] territory. He had an MRA of the head and neck that were read as negative. IMPRESSION AND RECOMMENDATIONS: Multiple infarcts and what appear to be possibly some anoxic changes to the cerebellum and basal ganglia, although a PRES-type syndrome could also be considered. I note his MRA shows that he is left vertebral dominant. An echo has been ordered, a Holter monitor, some additional blood work. It is possible in addition to the drug use, he could have had a shower emboli and then diminished level of consciousness with some anoxia, although it is encouraging that the nurse tells me he has followed commands here. For now, a baby aspirin a day will be given. MD DIANE Sabillon/ALEXIA , 01:53 PM , 02:36 PM
--- NOTE | 2017-07-21 14:39 | EKG ---
Date Performed: 07/20/2017 Time Performed: 23:05:18 PTAGE: 66 years EKG: Sinus rhythm When compared to previous tracing, sinus rate is faster. NORMAL ECG PREVIOUS TRACING : 10/15/2009 13.59 DOCTOR: Heath Pennington Interpretating Date/Time 07/21/2017 14:38:23
[2017-07-21 15:54] LABS: RHEUMATOID FACTOR SCREEN NEGATIVE (NEGATIVE)
--- NOTE | 2017-07-21 18:44 | RADRPT ---
EXAM DATE/TIME: 07/21/2017 15:47 [facility] COMPARISON: No previous studies available for comparison. INDICATIONS : Increased lab values. MEDICAL HISTORY : Diabetes mellitus type 2. Hypertension. SURGICAL HISTORY : Fusion, cervical. Colon resection. ENCOUNTER: Initial ACUITY: 1 day PAIN SCORE: 0/10 LOCATION: Bilateral upper quadrant MEASUREMENTS: LIVER: 18.6 cm length COMMON DUCT: 5 mm RIGHT KIDNEY: 12.9 x 5.6 x 5.1 cm LEFT KIDNEY: 13.0 x 6.4 x 5.2 cm SPLEEN: 9.4 cm length AORTA: 1.9cm maximal FINDINGS: LIVER: 1 cm cyst in the left lobe. Otherwise within normal limits. COMMON DUCT: No intraluminal mass or stone visualized. GALLBLADDER: 1.2 cm calculus in the gallbladder neck. No evidence of wall thickening or pericholecystic fluid. PANCREAS: Poorly visualized. RIGHT KIDNEY: No hydronephrosis, stone or mass. LEFT KIDNEY: No hydronephrosis, stone or mass. SPLEEN: No focal lesion. AORTA: Non aneurysmal. IVC: Within normal limits. CONCLUSION: Cholelithiasis. No gallbladder wall thickening or pericholecystic fluid. Victor Manuel Barros MD on July 21, 2017 at 18:40 Board Certified Radiologist. This report was verified electronically.
[2017-07-21] MEDS: HEPARIN SODIUM - SQ 10,000 UNITS/ML VIAL SQ SCH (21:00)
[2017-07-22] VITALS (25 sets, daily range): BP systolic 100–174; BP diastolic 55–95; PULSE 61–84; RESP 18–33; TEMP 97.4–100.4; O2SAT 94–98
[2017-07-22] MEDS: PIPERACIL-TAZO 2.25 GM PREMIX 50 ML IV SCH ×3 (00:22→14:34)
[2017-07-22] MEDS: AZITHROMYCIN INJ 500 MG in SODIUM CHLOR 0.9% 250 ML INJ 250 ML IV SCH (01:00)
[2017-07-22] MEDS: SODIUM CHLOR 0.9% 1000 ML INJ 1,000 ML IV SCH ×2 (01:02→07:10)
[2017-07-22] MEDS: fentaNYL DRIP 250 ML IV PRN (02:26)
[2017-07-22] MEDS: RESP: ALBUTEROL 2.5 MG/IPRATROPIUM 0.5 MG NEB (SCH) INH ×4 (03:24→19:39)
[2017-07-22] MEDS: CHLORHEXIDINE GLUCONATE 2 % 1 PACK (2 CLOTHS) TOP SCH (03:38)
--- NOTE | 2017-07-22 03:48 | RADRPT ---
EXAM DATE/TIME: 07/22/2017 02:52 [facility] COMPARISON: CHEST SINGLE AP, July 20, 2017, 22:51. INDICATIONS : Shortness of breath, possible pulmonary disease. MEDICAL HISTORY : Hypertension. Diabetes mellitus type II. SURGICAL HISTORY : Colon resection. Fusion, cervical. ENCOUNTER: Subsequent ACUITY: 3 days PAIN SCORE: Non-responsive. LOCATION: Bilateral chest FINDINGS: Endotracheal tube and nasogastric tube are present in good position. There is slight basilar and sofya hilar interstitial prominence. No evidence of alveolar consolidation or significant effusion. Cardiac contours are stable and satisfactory. CONCLUSION: Mild perihilar and basilar interstitial prominence Lonnie Lock MD on July 22, 2017 at 3:44 Board Certified Radiologist. This report was verified electronically.
[2017-07-22 05:59] LABS: AUTOMATED NEUTROPHIL # 7.3 TH/MM3 (1.8-7.7); BASOPHIL % 0.4 % (0.0-2.0); EOSINOPHIL # 0.1 TH/MM3 (0-0.4); EOSINOPHIL % 1.2 % (0.0-4.0); HEMATOCRIT 35.3 % (39.0-51.0); HEMOGLOBIN 11.9 GM/DL (13.0-17.0); LYMPH % 13.8 % (9.0-44.0); LYMPHOCYTE # 1.4 TH/MM3 (1.0-4.8); MEAN CELL VOLUME 94.1 FL (80.0-100.0); MEAN CORPUSCULAR HEMOGLOBIN 31.6 PG (27.0-34.0); MEAN CORPUSCULAR HGB CONC 33.5 % (32.0-36.0); MEAN PLATELET VOLUME 8.3 FL (7.0-11.0); MONO % 11.5 % (0.0-8.0); MONOCYTE # 1.2 TH/MM3 (0-0.9); NEUT % 73.1 % (16.0-70.0); PLATELET COUNT 219 TH/MM3 (150-450); RED BLOOD COUNT 3.76 MIL/MM3 (4.50-5.90); RED CELL DISTRIBUTION WIDTH 13.9 % (11.6-17.2)
[2017-07-22] MEDS: INSULIN ASPART SUPPLEMENTAL SCALE SQ SCH ×4 (06:00→18:00)
[2017-07-22 07:25] LABS: ALBUMIN 2.6 GM/DL (3.4-5.0); ALKALINE PHOSPHATASE 80 U/L (45-117); ALT (GPT) 185 U/L (12-78); AST (GOT) 574 U/L (15-37); BLOOD UREA NITROGEN 16 MG/DL (7-18); CALCIUM 7.3 MG/DL (8.5-10.1); CALCIUM-PROTEIN CORRECTED 8.2 MG/DL (8.5-10.1); CHLORIDE 109 MEQ/L (98-107); CREATININE 0.91 MG/DL (0.60-1.30); GLOMERULAR FILTRATION RATE 84 ML/MIN (>89); GLUCOSE,RANDOM 91 MG/DL (74-106); MAGNESIUM 2.4 MG/DL (1.5-2.5); PHOSPHORUS 1.7 MG/DL (2.5-4.9); SODIUM (NA) 145 MEQ/L (136-145); TOTAL BILIRUBIN ADULT 0.3 MG/DL (0.2-1.0); TOTAL PROTEIN 5.4 GM/DL (6.4-8.2)
[2017-07-22] MEDS: RESP: BUDESONIDE 0.5 MG/2 ML NEB NEB SCH ×2 (07:37→19:39)
[2017-07-22] MEDS: HEPARIN SODIUM - SQ 10,000 UNITS/ML VIAL SQ SCH ×2 (07:50→21:41)
[2017-07-22] MEDS: DOCUSATE SODIUM 50 MG/SENNA 8.6 MG TAB PO SCH ×2 (07:50→21:38)
[2017-07-22] MEDS: ASPIRIN 300 MG SUPP RECTAL SCH (07:50)
[2017-07-22] MEDS: LANSOPRAZOLE SOLUTAB 30 MG TAB G-TUBE SCH (07:50)
[2017-07-22] MEDS: CHLORHEXIDINE 0.12% (ORAL KIT) 15 ML CUP MT SCH ×2 (07:50→21:36)
[2017-07-22] MEDS: SODIUM CHLORIDE 0.9% FLUSH 10 ML FLUSH IV FLUSH SCH ×2 (07:51→21:38)
[2017-07-22] MEDS: ARTIFICIAL TEARS OPTH SOLN 15 ML BTL EACH EYE SCH ×3 (07:51→18:00)
--- NOTE | 2017-07-22 07:55 | HHI.CCPN ---
Subjective Remarks/Hospital Course This is a 66-year-old male. Date of admission 07/20/2017. Past medical history includes hypertension, hyperlipidemia, COPD with ongoing tobacco abuse, peptic ulcer disease and anxiety. He also has history of lumbar stenosis, degenerative joint disease of the back and cervical spine. He presents to [facility] with the following history. 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 According to his at bedside, patient is drug tested. Patient returned home from work on Sunday after his 30 day work schedule. Patient was changing the tire of a bike friend yesterday. Patient returned home in no acute distress. Today, patient was tired and was sleeping all day. Initially patient had similar symptoms at lunch. When the attempted to wake him up later this evening patient be was nonresponsive with a weak pulse. She attempted to use ammonia without response. At that time EMS was called and patient was transferred to [facility]. Patient was noted to be an acute change with a creatinine of 3.8. Baseline is normal. Potassium is 7.4 without EKG changes. Patient received bicarbonate, insulin/D50, calcium and Kayexalate in the ED. Repeat potassium 3 hours. Patient is making urine and appears concentrated. UA is pending. Patient leukocytosis 13,000. CPK was 5000. Lactic acid was 2.6. Urine drug screen revealed positive for opiates, amphetamines, benzodiazepines, THC and cocaine. Head CT is currently pending. Due to altered mental status patient was admitted after receiving 20 mg etomidate and 100 mg succinylcholine by ED physician. Patient also received 4 mg of midazolam and after which patient became hypotensive is currently receiving 3 L normal saline wide open. Head CT is currently pending. Patient received clindamycin along with piperacillin/ tazobactam in the ED. 55: Overnight the patient required to protamine infusion low-dose currently being weaned off. The patient continues on fentanyl and propofol infusion for ventilator synchrony. Patient's undergoing MRI evaluation results pending. The patient was noted to have significant elevation in creatinine kinase the patient is bolused 1 L IV fluids increase in normal saline 200 cc/hr. Lactic acid downtrending will continue to trend creatinine noted to be decreasing. Subjective: 5/6: Currently afebrile. Off all vasopressors. We will switch to LR at 200 cc an hour. Recheck BMP this afternoon. Moving all 4 x-rays spontaneously right upper extremity less. Opens eyes but not following commands. Positive gag and corneal reflex. Objective Vital Signs Date Time Temp Pulse Resp B/P (MAP) Pulse Ox O2 Delivery O2 Flow Rate FiO2 07/22/17 07:37 97 40 07/22/17 06:00 71 07/22/17 06:00 24 134/71 (92) 07/22/17 04:00 98.5 07/21/17 00:55 Ventilator 07/20/17 22:15 15.00 Intake and Output 07/22/17 07/22/17 07/23/17 08:00 16:00 00:00 Intake Total 2408.7 ml Output Total 850 ml Balance 1558.7 ml Result Diagram: 07/22/17 0405 07/22/17 0405 Other Results Microbiology Date/Time Source Procedure Growth Status 07/21/17 05:03 Blood Peripheral Aerobic Blood Culture Pending Received 07/21/17 05:03 Blood Peripheral Anaerobic Blood Culture Pending Received 07/21/17 00:45 Sputum Endotracheal Gram Stain - Final Resulted 07/21/17 00:45 Sputum Endotracheal Sputum Culture Pending Resulted 07/20/17 22:50 Urine Catheterized Urine Legionella Antigen - Final PRESUMPTIVE NEGATIVE FOR LEGIONELLA P... Complete 07/20/17 22:50 Urine Catheterized Urine Streptococcus pneumoniae Antigen (M - Final PRESUMPTIVE NEGATIVE FOR STREPTOCOCCU... Complete Imaging Last Impressions Chest X-Ray 07/22/17 0600 Signed Impressions: Service Date/Time: Saturday, July 22, 2017 02:52 - CONCLUSION: Mild perihilar and basilar interstitial prominence Lonnie Lock MD Neck Magnetic Resonance Angiography 07/21/17 0000 Signed Impressions: Service Date/Time: Friday, July 21, 2017 08:40 - CONCLUSION: No acute neck arteriovascular abnormality is identified. There is no significant stenosis within either internal carotid artery. Lonnie Ross MD Head Magnetic Resonance Angiography 07/21/17 0000 Signed Impressions: Service Date/Time: Friday, July 21, 2017 08:40 - CONCLUSION: No acute intracranial vascular abnormality is identified. Lonnie Ross MD Brain MRI 07/21/17 0000 Signed Impressions: Service Date/Time: Friday, July 21, 2017 08:40 - CONCLUSION: Multifocal areas of restricted diffusion/recent ischemia within the centrum semiovale bilaterally, bilateral occipital lobes, bilateral basal ganglia, bilateral temporal lobes, and bilateral cerebellar hemispheres. Findings could be related to global anoxic event or less likely embolic phenomenon. Lonnie Ross MD Abdomen Ultrasound 07/21/17 0000 Signed Impressions: Service Date/Time: Friday, July 21, 2017 15:47 - CONCLUSION: Cholelithiasis. No gallbladder wall thickening or pericholecystic fluid. Victor Manuel Barros MD Head CT 07/20/17 2225 Signed Impressions: Service Date/Time: Friday, July 21, 2017 00:53 - CONCLUSION: Abnormal brain appearance. Recommend MRI for further evaluation Lonnie Lock MD Objective Remarks GENERAL: 66-year-old male currently orotracheally intubated SKIN: Warm and dry. Multiple tattoos bilateral upper extremities and thorax HEAD: Atraumatic. Normocephalic. EYES: Pupils equal and round. About 3 mm bilaterally reactive. Disconjugate gaze- the left. No scleral icterus. No injection or drainage. ENT: No nasal bleeding or discharge. Mucous membranes pink and moist. NECK: Trachea midline. No JVD. CARDIOVASCULAR: Regular rate and rhythm. S1, S2. No S4. Without murmur RESPIRATORY: Scattered coarse crackles appreciated bilaterally anteriorly posteriorly. Positive end expiratory wheezing. GASTROINTESTINAL: Abdomen soft, non-tender, slightly protuberant. Hypoactive bowel sounds are appreciated. MUSCULOSKELETAL: Extremities without significant peripheral edema. No obvious deformities. NEUROLOGICAL: Positive corneal reflex. Positive gag and cough. Withdraws to pain bilateral upper and lower extremities. 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 There is mild heterogeneous diminished density in the genu region of internal capsules and globus pallidus bilaterally. There is vague diminished density in the cerebellar hemispheres bilaterally. There is no evidence of intracranial mass or hemorrhage. There is no abnormal extra-axial fluid accumulation or shift present. 07/21 MRI brain-Multifocal areas of restricted diffusion/recent ischemia within the centrum semiovale bilaterally, bilateral occipital lobes, bilateral basal ganglia, bilateral temporal lobes, and bilateral cerebellar hemispheres. Findings could be related to global anoxic event or less likely embolic phenomenon. 07/21 EEG pending 07/21-MRA brain/neck -no acute findings Neurology consulted-Dr. Castillo. Ordered Holter monitor and 300 mg rectal aspirin daily. Multiple laboratories pending workup process Holding trazodone 100 mg at night/home medication for depression/anxiety ASA 300mg/day UDS + opiates, amphetamines, benzodiazepines, THC and cocaine CV: History of essential hypertension Hyperlipidemia Lactic acidosis Initial troponin < 0.02. Received 3 L normal saline in ED. Currently on normal saline at 200 cc an hour. Switch to LR 200 cc an hour Continue serial lactates until cleared Holding valsartan 320 mg p.o. daily due to hypotension/acute kidney injury Holding rosuvastatin 10 mg p.o. q. Sunday/Sunday/Sunday due to elevated LFTs. Resume when clinically indicated We will restart amlodipine 5 mg at night Obtain echo with results pending Resp: Acute hypoxemic respiratory failure secondary to altered mental status Tobacco use disorder [facility] /03/23/49 Ventilator bundle Albuterol/ipratropium aerosols every 6 hours with albuterol aerosol every 2 hours as needed dyspnea Add budesonide 0.5/2 1 inhalation twice daily since on budesonide/formoterol 160 /4.5 1 puff twice daily at home along with albuterol inhaler twice daily Self-education cessation booklet will be provided when clinically appropriate Obtain Chest x-rays and ABGs when clinically indicated GI: Elevated transaminases Rhabdomyolysis Cholelithiasis Trend CK levels-5000->35935. A.m. laboratories pending 07/22 07/21-bolus 1 L normal saline 07/21 Liver ultrasound revealed cholelithiasis hepatitis panel-negative Start tube feeding with Neutra hep goal 45 cc an hour NG tube to low intermittent wall suction will be discontinued once tube feeding started Lansoprazole for GI prophylaxis Docusate/senna 1 tablet twice daily for bowel regimen : Garner catheter has been placed for accurate I's and O's in a critically ill patient Endo: Sliding scale insulin with NovoLog with Accu-Cheks every 6 hours to maintain euglycemia/low regimen Hemoglobin A1c documented at 6.1 Renal: Acute kidney injury Rhabdomyolysis LR at 200cc/hr Monitor urine output Accurate I's and O's Renal ultrasound revealed no hydronephrosis bilaterally 5/5 Urine eosinophils negative. Avoid nephrotoxic drugs Recheck CPK Heme: Normocytic anemia Monitor CBC daily. Follow trend SQ Heparin initiated per Dr. Hernandez ID: Received piperacillin/tazobactam and clindamycin ED for possible aspiration Empiric antibiotics-piperacillin/tazobactam, vancomycin day #2 Blood cultures 2, UA, sputum 5/5 all pending/no growth to date Strep pneumo, Legionella urine antigens-negative Influenza a and B ordered. Results pending FEN: Hyperkalemia-resolved Monitor BMP, 5/5 potassium normalized 4.7 A.m. laboratories pending /6 MSK: History of multiple lumbar/cervical spine surgeries PT evaluate and treat Access -Utilize peripheral IV. Central line if indicated Prophylaxis -GI -lansoprazole -DVT -SCD/ Heparin SQ Level 2 follow-up Singh Romero MD July 22, 2017 07:55
[2017-07-22] MEDS ORDERED: LACTATED RINGER'S 1000 ML INJ 1,000 ML IV ONE (08:00)
[2017-07-22] MEDS ORDERED: LACTULOSE SYRUP 20 GM/30 ML CUP PO ONE (08:15)
[2017-07-22 09:31] LABS: FOLATE 19.6 NG/ML (3.1-17.5); FREE T4 0.81 NG/DL (0.76-1.46)
[2017-07-22] MEDS: SODIUM BICARBONATE 8.4% INJ 75 MEQ in SODIUM CHLOR 0.45% 1000 ML INJ 1,000 ML IV SCH ×3 (09:33→21:38)
[2017-07-22] MEDS: LACTULOSE SYRUP 20 GM/30 ML CUP PO SCH (09:34)
[2017-07-22] MEDS ORDERED: NITROGLYCERIN 2% OINT 1 GM PACKET TOPICAL PRN (09:45)
--- NOTE | 2017-07-22 12:47 | HHI.PR ---
Objective Vital Signs Date Time Temp Pulse Resp B/P (MAP) Pulse Ox O2 Delivery O2 Flow Rate FiO2 07/22/17 12:00 40 07/22/17 12:00 97.4 69 21 129/65 (86) 95 07/22/17 12:00 69 07/22/17 11:07 95 40 07/22/17 11:00 83 26 174/77 (109) 95 07/22/17 10:00 75 24 168/81 (110) 96 07/22/17 10:00 75 07/22/17 09:00 77 28 170/80 (110) 96 07/22/17 08:00 72 24 155/79 (104) 95 07/22/17 08:00 72 07/22/17 08:00 40 07/22/17 07:37 97 40 07/22/17 07:00 97.6 70 24 135/74 (94) 96 07/22/17 06:00 71 07/22/17 06:00 71 24 134/71 (92) 98 07/22/17 04:05 97 40 07/22/17 04:00 98.5 73 28 113/67 (82) 97 07/22/17 04:00 40 07/22/17 04:00 73 07/22/17 02:00 76 07/22/17 02:00 76 33 120/75 (90) 98 07/22/17 01:14 96 40 07/22/17 00:00 100.4 72 33 95 07/22/17 00:00 40 07/22/17 00:00 72 07/21/17 23:00 74 24 135/69 (91) 98 07/21/17 22:00 72 07/21/17 22:00 72 24 124/68 (86) 99 07/21/17 21:00 71 24 122/68 (86) 95 07/21/17 20:24 95 40 07/21/17 20:00 80 07/21/17 20:00 40 07/21/17 20:00 99.6 80 37 129/76 (93) 92 07/21/17 18:00 74 22 126/76 (93) 96 07/21/17 18:00 74 07/21/17 17:00 69 22 112/64 (80) 95 07/21/17 16:00 82 07/21/17 16:00 82 22 120/70 (87) 94 07/21/17 16:00 40 07/21/17 15:01 97 40 07/21/17 15:00 72 18 116/68 (84) 96 07/21/17 14:00 68 18 107/66 (80) 98 07/21/17 14:00 68 07/21/17 13:00 69 18 95/56 (69) 96 I/O 07/21/17 07/21/17 07/21/17 07/22/17 07/22/17 07/22/17 07:00 15:00 23:00 07:00 15:00 23:00 Intake Total 4660 ml 2050 ml 880 ml 2233.7 ml 1825 ml Output Total 1925 ml 1000 ml 850 ml Balance 2735 ml 2050 ml -120 ml 1383.7 ml 1825 ml Intake Oral 0 ml IV Total 4600 ml 2050 ml 880 ml 2233.7 ml 1825 ml Other 60 ml Output Urine Total 1400 ml 1000 ml 850 ml Gastric Drainage Total 525 ml # Bowel Movements 0 0 0 Result Diagram: 07/22/17 0405 07/22/17 0405 Objective Remarks on vent on sedatives pupil= unresponsivee Assessment and Plan Assessment and Plan imp i dw med team dc sedatives see if awakens eeg fu echo asa Judd Castillo MD July 22, 2017 12:47
[2017-07-22] MEDS ORDERED: DEXMEDETOMIDINE INJ 200 MCG in SODIUM CHLORIDE 0.9% INJ 50 ML IV PRN (13:00)
[2017-07-22] MEDS ORDERED: RASS Change Order XX ONE (13:15)
[2017-07-22 13:30] LABS: HEMOGLOBIN A1C 5.6 % (4.3-6.0)
--- NOTE | 2017-07-22 13:33 | MG ---
cc: Judd Castillo MD EEG NUMBER: [id number] INDICATION: Bilateral infarcts and possibly some anoxic damage. DESCRIPTION: The recording shows diffuse 6 Hz slowing. No hemisphere asymmetry is noted. No epileptiform or seizure activity seen. Photic stimulation was performed without significant posterior driving. Hyperventilation was not performed. IMPRESSION: Moderate diffuse encephalopathy, but no focal abnormality was noted. No seizure activity was seen. Judd Castillo MD DJM/TL , 01:09 PM , 01:31 PM
[2017-07-22] MEDS: LACTATED RINGER'S 1000 ML INJ 1,000 ML IV SCH (15:25)
[2017-07-22] MEDS ORDERED: CLEVIDIPINE INJ 50 ML IV PRN (19:15)
[2017-07-22] MEDS: amLODIPine BESYLATE 5 MG TAB PO SCH (21:00)
[2017-07-23] VITALS (20 sets, daily range): BP systolic 111–164; BP diastolic 61–87; PULSE 53–64; RESP 20–23; TEMP 97.3–99.7; O2SAT 93–99
[2017-07-23] MEDS: PIPERACIL-TAZO 2.25 GM PREMIX 50 ML IV SCH ×2 (00:43→08:59)
[2017-07-23] MEDS: SODIUM BICARBONATE 8.4% INJ 75 MEQ in SODIUM CHLOR 0.45% 1000 ML INJ 1,000 ML IV SCH ×2 (00:44→08:06)
[2017-07-23] MEDS: AZITHROMYCIN INJ 500 MG in SODIUM CHLOR 0.9% 250 ML INJ 250 ML IV SCH (00:44)
[2017-07-23] MEDS: RESP: ALBUTEROL 2.5 MG/IPRATROPIUM 0.5 MG NEB (SCH) INH ×4 (03:57→20:42)
[2017-07-23] MEDS: CHLORHEXIDINE GLUCONATE 2 % 1 PACK (2 CLOTHS) TOP SCH (04:00)
[2017-07-23 04:20] LABS: AUTOMATED NEUTROPHIL # 6.4 TH/MM3 (1.8-7.7); BASOPHIL # 0.1 TH/MM3 (0-0.2); BASOPHIL % 0.6 % (0.0-2.0); EOSINOPHIL # 0.4 TH/MM3 (0-0.4); HEMATOCRIT 31.8 % (39.0-51.0); HEMOGLOBIN 10.9 GM/DL (13.0-17.0); LYMPH % 17.4 % (9.0-44.0); LYMPHOCYTE # 1.7 TH/MM3 (1.0-4.8); MEAN CELL VOLUME 93.1 FL (80.0-100.0); MEAN CORPUSCULAR HEMOGLOBIN 31.8 PG (27.0-34.0); MEAN CORPUSCULAR HGB CONC 34.2 % (32.0-36.0); MEAN PLATELET VOLUME 8.3 FL (7.0-11.0); MONO % 10.1 % (0.0-8.0); NEUT % 67.9 % (16.0-70.0); PLATELET COUNT 209 TH/MM3 (150-450); RED BLOOD COUNT 3.42 MIL/MM3 (4.50-5.90); RED CELL DISTRIBUTION WIDTH 13.8 % (11.6-17.2); WHITE BLOOD COUNT 9.5 TH/MM3 (4.0-11.0)
[2017-07-23 04:41] LABS: ALBUMIN 2.2 GM/DL (3.4-5.0); ALT (GPT) 141 U/L (12-78); AST (GOT) 336 U/L (15-37); BICARBONATE 28.3 MEQ/L (21.0-32.0); BLOOD UREA NITROGEN 10 MG/DL (7-18); CALCIUM 7.1 MG/DL (8.5-10.1); CHLORIDE 107 MEQ/L (98-107); CHOLESTEROL 120 MG/DL (120-200); CREATININE 0.78 MG/DL (0.60-1.30); GLOMERULAR FILTRATION RATE 100 ML/MIN (>89); GLUCOSE,RANDOM 143 MG/DL (74-106); MAGNESIUM 2.2 MG/DL (1.5-2.5); PHOSPHORUS 1.2 MG/DL (2.5-4.9); SODIUM (NA) 142 MEQ/L (136-145); TRIGLYCERIDES 94 MG/DL (42-150)
[2017-07-23 04:54] LABS: ALKALINE PHOSPHATASE 74 U/L (45-117); CALCIUM-PROTEIN CORRECTED 8.2 MG/DL (8.5-10.1); CHOLESTEROL/ HDL RATIO 2.83 RATIO; HDL CHOLESTEROL 42.4 MG/DL (40.0-60.0); LDL CHOLESTEROL 59 MG/DL (0-99); TOTAL BILIRUBIN ADULT 0.4 MG/DL (0.2-1.0); TOTAL PROTEIN 5.1 GM/DL (6.4-8.2)
--- NOTE | 2017-07-23 05:07 | RADRPT ---
EXAM DATE/TIME: 07/23/2017 04:10 [facility] COMPARISON: CHEST SINGLE AP, July 22, 2017, 2:52. INDICATIONS : Shortness of breath, possible pulmonary disease. MEDICAL HISTORY : Hypertension. Diabetes mellitus type II. SURGICAL HISTORY : Colon resection. Fusion, cervical. ENCOUNTER: Subsequent ACUITY: 4 - 6 days PAIN SCORE: Non-responsive. LOCATION: Bilateral chest FINDINGS: A single view of the chest demonstrates the endotracheal tube and nasogastric are both in good positi on.. The cardiomediastinal contours are unremarkable. Osseous structures are intact. CONCLUSION: Lungs grossly clear. Tubes and catheter in good position. Ankur Shields MD on July 23, 2017 at 5:06 Board Certified Radiologist. This report was verified electronically.
[2017-07-23] MEDS: DEXMEDETOMIDINE INJ 1,000 MCG in SODIUM CHLOR 0.9% 250 ML INJ 240 ML IV PRN ×2 (05:58→09:43)
[2017-07-23] MEDS: INSULIN ASPART SUPPLEMENTAL SCALE SQ SCH ×4 (05:59→17:40)
[2017-07-23] MEDS: RESP: BUDESONIDE 0.5 MG/2 ML NEB NEB SCH ×2 (07:36→20:42)
[2017-07-23] MEDS: CHLORHEXIDINE 0.12% (ORAL KIT) 15 ML CUP MT SCH ×2 (08:07→21:19)
[2017-07-23] MEDS: LANSOPRAZOLE SOLUTAB 30 MG TAB G-TUBE SCH (08:59)
[2017-07-23] MEDS: SODIUM CHLORIDE 0.9% FLUSH 10 ML FLUSH IV FLUSH SCH ×2 (08:59→21:20)
[2017-07-23] MEDS: DOCUSATE SODIUM 50 MG/SENNA 8.6 MG TAB PO SCH ×2 (09:00→21:00)
[2017-07-23] MEDS: ASPIRIN 300 MG SUPP RECTAL SCH (09:00)
[2017-07-23] MEDS: LACTULOSE SYRUP 20 GM/30 ML CUP PO SCH ×3 (09:00→21:00)
[2017-07-23] MEDS: HEPARIN SODIUM - SQ 10,000 UNITS/ML VIAL SQ SCH ×2 (09:01→21:21)
[2017-07-23] MEDS: ARTIFICIAL TEARS OPTH SOLN 15 ML BTL EACH EYE SCH ×3 (10:25→17:40)
[2017-07-23] MEDS: LACTATED RINGER'S 1000 ML INJ 1,000 ML IV SCH ×2 (13:13→18:21)
--- NOTE | 2017-07-23 14:41 | HHI.CCPN ---
Subjective Remarks/Hospital Course This is a 66-year-old male. Date of admission 07/20/2017. Past medical history includes hypertension, hyperlipidemia, COPD with ongoing tobacco abuse, peptic ulcer disease and anxiety. He also has history of lumbar stenosis, degenerative joint disease of the back and cervical spine. He presents to [facility] with the following history. 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 According to his at bedside, patient is drug tested. Patient returned home from work on Sunday after his 30 day work schedule. Patient was changing the tire of a bike friend yesterday. Patient returned home in no acute distress. Today, patient was tired and was sleeping all day. Initially patient had similar symptoms at lunch. When the attempted to wake him up later this evening patient be was nonresponsive with a weak pulse. She attempted to use ammonia without response. At that time EMS was called and patient was transferred to [facility]. Patient was noted to be an acute change with a creatinine of 3.8. Baseline is normal. Potassium is 7.4 without EKG changes. Patient received bicarbonate, insulin/D50, calcium and Kayexalate in the ED. Repeat potassium 3 hours. Patient is making urine and appears concentrated. UA is pending. Patient leukocytosis 13,000. CPK was 5000. Lactic acid was 2.6. Urine drug screen revealed positive for opiates, amphetamines, benzodiazepines, THC and cocaine. Head CT is currently pending. Due to altered mental status patient was admitted after receiving 20 mg etomidate and 100 mg succinylcholine by ED physician. Patient also received 4 mg of midazolam and after which patient became hypotensive is currently receiving 3 L normal saline wide open. Head CT is currently pending. Patient received clindamycin along with piperacillin/ tazobactam in the ED. 07/21: Overnight the patient required to protamine infusion low-dose currently being weaned off. The patient continues on fentanyl and propofol infusion for ventilator synchrony. Patient's undergoing MRI evaluation results pending. The patient was noted to have significant elevation in creatinine kinase the patient is bolused 1 L IV fluids increase in normal saline 200 cc/hr. Lactic acid downtrending will continue to trend creatinine noted to be decreasing. 07/22: Currently afebrile. Off all vasopressors. We will switch to LR at 200 cc an hour. Recheck BMP this afternoon. Moving all 4 x-rays spontaneously right upper extremity less. Opens eyes but not following commands. Positive gag and corneal reflex. Subjective: 07/23: Currently on dexmedetomidine drip at 0.7 mg/kg/h. Minimal response to distinguish. Will hold at the present time and reassess neurological condition. EEG showed no epileptiform activity. Tolerating tube feeding. No bowel movement since admission. Currently afebrile Objective Vital Signs Date Time Temp Pulse Resp B/P (MAP) Pulse Ox O2 Delivery O2 Flow Rate FiO2 07/23/17 14:00 54 07/23/17 12:00 98.9 22 122/69 (86) 96 07/23/17 12:00 40 07/21/17 00:55 Ventilator 07/20/17 22:15 15.00 Intake and Output 07/23/17 07/23/17 07/24/17 08:00 16:00 00:00 Intake Total 1725 ml 1400 ml Output Total 650 ml Balance 1075 ml 1400 ml Result Diagram: 07/23/17 0327 07/23/17 0327 Other Results Microbiology Date/Time Source Procedure Growth Status 07/21/17 05:03 Blood Peripheral Aerobic Blood Culture - Preliminary NO GROWTH IN 2 DAYS Resulted 07/21/17 05:03 Blood Peripheral Anaerobic Blood Culture - Preliminary NO GROWTH IN 2 DAYS Resulted 07/22/17 09:28 Nasal Washing Influenza Types A,B Antigen (LEO) - Final NEGATIVE FOR FLU A AND B ANTIGEN.... Complete 07/20/17 22:50 Urine Catheterized Urine Legionella Antigen - Final PRESUMPTIVE NEGATIVE FOR LEGIONELLA P... Complete 07/20/17 22:50 Urine Catheterized Urine Streptococcus pneumoniae Antigen (M - Final PRESUMPTIVE NEGATIVE FOR STREPTOCOCCU... Complete Imaging Last Impressions Chest X-Ray 07/23/17 0600 Signed Impressions: Service Date/Time: Sunday, July 23, 2017 04:10 - CONCLUSION: Lungs grossly clear. Tubes and catheter in good position. Ankur Shields MD Neck Magnetic Resonance Angiography 07/21/17 0000 Signed Impressions: Service Date/Time: Friday, July 21, 2017 08:40 - CONCLUSION: No acute neck arteriovascular abnormality is identified. There is no significant stenosis within either internal carotid artery. Lonnie Ross MD Head Magnetic Resonance Angiography 07/21/17 Signed Impressions: Service Date/Time: Friday, July 21, 2017 08:40 - CONCLUSION: No acute intracranial vascular abnormality is identified. Lonnie Ross MD Brain MRI 07/21/17 Signed Impressions: Service Date/Time: Friday, July 21, 2017 08:40 - CONCLUSION: Multifocal areas of restricted diffusion/recent ischemia within the centrum semiovale bilaterally, bilateral occipital lobes, bilateral basal ganglia, bilateral temporal lobes, and bilateral cerebellar hemispheres. Findings could be related to global anoxic event or less likely embolic phenomenon. Lonnie Ross MD Abdomen Ultrasound 07/21/17 Signed Impressions: Service Date/Time: Friday, July 21, 2017 15:47 - CONCLUSION: Cholelithiasis. No gallbladder wall thickening or pericholecystic fluid. Victor Manuel Barros MD Head CT 07/20/175 Signed Impressions: Service Date/Time: Friday, July 21, 2017 00:53 - CONCLUSION: Abnormal brain appearance. Recommend MRI for further evaluation Lonnie Lock MD Objective Remarks GENERAL: 66-year-old male currently orotracheally intubated SKIN: Warm and dry. Multiple tattoos bilateral upper extremities and thorax HEAD: Atraumatic. Normocephalic. EYES: Pupils equal and round. About 3 mm bilaterally reactive. Disconjugate gaze- the left. No scleral icterus. No injection or drainage. ENT: No nasal bleeding or discharge. Mucous membranes pink and moist. NECK: Trachea midline. No JVD. CARDIOVASCULAR: Regular rate and rhythm. S1, S2. No S4. Without murmur RESPIRATORY: Scattered coarse crackles appreciated bilaterally anteriorly posteriorly. Positive end expiratory wheezing. GASTROINTESTINAL: Abdomen soft, non-tender, slightly protuberant. Hypoactive bowel sounds are appreciated. MUSCULOSKELETAL: Extremities without significant peripheral edema. No obvious deformities. NEUROLOGICAL: Positive corneal reflex. Positive gag and cough. Withdraws to pain bilateral upper and lower extremities. 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 There is mild heterogeneous diminished density in the genu region of internal capsules and globus pallidus bilaterally. There is vague diminished density in the cerebellar hemispheres bilaterally. There is no evidence of intracranial mass or hemorrhage. There is no abnormal extra-axial fluid accumulation or shift present. 07/21 MRI brain-Multifocal areas of restricted diffusion/recent ischemia within the centrum semiovale bilaterally, bilateral occipital lobes, bilateral basal ganglia, bilateral temporal lobes, and bilateral cerebellar hemispheres. Findings could be related to global anoxic event or less likely embolic phenomenon. 07/21 EEG revealed no epileptic activity 07/21-MRA brain/neck -no acute findings Neurology consulted-Dr. Castillo. Ordered Holter monitor and 300 mg rectal aspirin daily. Transition to 324 mg daily Multiple laboratories pending workup process Holding trazodone 100 mg at night/home medication for depression/anxiety Echocardiogram pending. Ordered 07/21 UDS + opiates, amphetamines, benzodiazepines, THC and cocaine CV: History of essential hypertension Hyperlipidemia Lactic acidosis Initial troponin < 0.02. Received 3 L normal saline in ED. Currently on normal saline at 200 cc an hour. Switch to LR 200 cc an hour Continue serial lactates until cleared Holding valsartan 320 mg p.o. daily due to hypotension/acute kidney injury Holding rosuvastatin 10 mg p.o. q. Sunday/Sunday/Sunday due to elevated LFTs. Resume when clinically indicated We will restart amlodipine 5 mg at night Obtain echo with results pending Resp: Acute hypoxemic respiratory failure secondary to altered mental status Tobacco use disorder [facility] /03/23/39 Ventilator bundle Albuterol/ipratropium aerosols every 6 hours with albuterol aerosol every 2 hours as needed dyspnea Add budesonide 0.5/2 1 inhalation twice daily since on budesonide/formoterol 160 /4.5 1 puff twice daily at home along with albuterol inhaler twice daily Self-education cessation booklet will be provided when clinically appropriate Obtain Chest x-rays and ABGs when clinically indicated GI: Elevated transaminases Rhabdomyolysis Cholelithiasis Trend CK levels-5000->84827->20K. Repeat CPK in a.m. Transaminases are slowly trending down 5/5-bolus 1 L normal saline 5/5 Liver ultrasound revealed cholelithiasis hepatitis panel-negative Start tube feeding with Neutra hep goal 45 cc an hour NG tube to low intermittent wall suction will be discontinued once tube feeding started Lansoprazole for GI prophylaxis Docusate/senna 1 tablet twice daily for bowel regimen : Garner catheter has been placed for accurate I's and O's in a critically ill patient Endo: Sliding scale insulin with NovoLog with Accu-Cheks every 6 hours to maintain euglycemia/low regimen Hemoglobin A1c documented at 6.1 Renal: Acute kidney injury Rhabdomyolysis LR at 125cc/hr Monitor urine output Accurate I's and O's Renal ultrasound revealed no hydronephrosis bilaterally 5/5 Urine eosinophils negative. Avoid nephrotoxic drugs Recheck CPK in a.m. 5/ Heme: Normocytic anemia Monitor CBC daily. Follow trend SQ Heparin initiated per Dr. Hernandez ID: Received piperacillin/tazobactam and clindamycin ED for possible aspiration Empiric antibiotics-piperacillin/tazobactam, azithromycin and vancomycin day #3 Will discontinue vancomycin and Zosyn today Blood cultures 2, UA, sputum 5/5 all pending/no growth to date Strep pneumo, Legionella urine antigens-negative Influenza a and B ordered. Results pending FEN: Hypophosphatemia 30 mmol K-Phos IV 1 now. Recheck in a.m. MSK: History of multiple lumbar/cervical spine surgeries PT evaluate and treat Access -Utilize peripheral IV. Central line if indicated Prophylaxis -GI -lansoprazole -DVT -SCD/ Heparin SQ Level 2 follow-up Singh Romero MD July 23, 2017 14:41
[2017-07-23] MEDS ORDERED: GLYCERIN ADULT 2 GM SUPP RECTAL ONE (14:45)
[2017-07-23] MEDS ORDERED: POTASSIUM PHOSPHATE INJ 30 MMOL in SODIUM CHLOR 0.9% 250 ML INJ 250 ML IV ONE (16:00)
[2017-07-23 16:15] LABS: HEMOGLOBIN A1C 5.5 % (4.3-6.0)
--- NOTE | 2017-07-23 17:15 | PD.CONS ---
Consult Service Palliative Care . Consult Requested By Dr. Agarwal . Primary Care Physician Víctor Leung M.D. . Reason for Consultation a. To assist with evaluation and management of symptoms including: pain; encephalopathy; dyspnea b. To assist medical decision maker(s) with: better understanding of current medical conditions; weighing benefits/burdens of medical treatment options; making medical treatment decisions. . HPI History of Present Illness Mr. Castillo is a 66 y/o male with a history of multiple spine surgeries, chronic pain, and longstanding opioid use as well as hypertension; hyperlipidemia; depression/anxiety; COPD; and peptic ulcer disease who was brought to the emergency department by paramedics after being found at home minimally responsive and barely breathing. His had started CPR when the paramedics arrived. She reports his breathing was odd with lots of snoring for some time before she started CPR. the patient has undergone lumbar spine surgery in 1989, 1993, 2009, and 2016. He underwent a cervical spine laminectomy in 2003. He has had chronic pain for decades and has been on chronic opioids. 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 Family reports there is little physical work associated with his job. During the 30 days on he is working 6 hours on then 6 hours off. He normally is able to fly or drive from the [facility] to his home in the [facility]. This time , he flew home on 07/18/17. He had no complaints and appeared in his usual state of health. The day after he arrived he was able to assist in the changing of a tire on a motorcycle. On the following day he was quite tired slept all day and ultimately his was unable to wake him up which prompted activating the EMS. and son are unaware of what the patient's usual medication regimen is. They were not aware if the patient had been receiving medications from friends or the street. If anything, since the patient's last back surgery in September 2016 , they report he had been doing a little bit better and had told them he was using smaller amounts of opioids. In the emergency department to the following are noted: * Temperature 96.0; pulse 72; respiratory rate 16; blood pressure 200/81; pulse oximetry 94% on O2 at 15 L a minute. * There was disconjugate gaze. There were scattered coarse crackles bilaterally as well as expiratory wheezing. Patient had positive gag and cough and was able to withdraw to pain in both the upper and lower extremities. * WBC 13.7; hemoglobin 13.9; platelet count 336 * Sodium 134; potassium 7.4; chloride 99; CO2 23.7; anion gap 11; BUN 31; creatinine 3.82; glucose 115; calcium 8.2; GFR 16 * Alkaline phosphatase 75; AST 165; ALT 107; total protein 7.3; albumin 4.0 * Troponin less than 0.02 * Salicylate level 4.0; acetaminophen level less than 2; ethyl alcohol level less than 3; urine drug screen positive for opiates/amphetamines/benzodiazepines /cocaine/cannabinoids * Urinalysis remarkable for moderate occult blood and occasional bacteria and 16 WBCs * Arterial blood gas revealed pH 7.16; PCO2 67; PO2 315; bicarb 23; base excess -5 on the ventilator at 70% FiO2 * It was similar to his EKG of 10/15/2009 with the exception of a faster rate. EKG was read as normal. * Chest x-ray showed no acute disease * Head CT showed patchy mild diminished attenuation in the centrum semi-ovale bilaterally. There is also mild heterogeneous diminished density in the genu region of internal capsules and globus pallidus bilaterally * MRI showed multifocal areas of restricted diffusion/recent ischemia in multiple areas. The radiologist felt this would most likely be related to either a global anoxic event or less likely embolic phenomenon. The patient received bicarbonate, insulin, D50, calcium, and Kayexalate in the emergency department. The patient was intubated and placed on mechanical ventilation. He received 4 mg of medazepam in the emergency department he received fluid resuscitation. He was started on clindamycin as well as piperacillin/tazobactam. Neurology was consulted. The patient was admitted to the medical intensive care unit. Neurology noted the multiple infarcts and what appeared to be possibly some anoxic changes to the cerebellum and basal ganglia though a PRES -type syndrome was also felt to be in the differential. EEG is showing diffuse encephalopathy but no focal abnormalities and no seizure activity. Over the course of this hospitalization, blood gases have improved and patient is tolerating brief CPAP trials. BUN and creatinine have returned to normal. Potassium has returned to normal. Cultures of the urine, sputum, blood, and nasal washings are negative to date. At the time of my visit, the patient is sedated and minimally responsive. He is unable to quantify or qualify any of his symptoms. History is taken from the medical record and from the patient's spouse and son. On his current sedation regimen, nurses have been reporting pain levels of primarily 0-1. . Function/Cognitive Trajectory Family reports that the patient's activity level has dropped significantly over the past years. Scuba diving had been 1 of his passions and he has not been able to do this for approximately 3 years. 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 His work, however, is relatively sedentary. The patient normally takes care of all of his activities of daily living. 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 Patient has been in chronic pain for many years and there has been almost daily use of opioids. Family is not aware of the amount of opioid consumption. It is uncertain if he has been getting any medications off the street. Family was not aware of any use of illicits. Family reports some concern that the patient had been becoming more depressed as his activities had becoming more limited. . Review of Systems ROS Limitations: Clinical Condition, Intubated, Altered Mental Status (Patient is unable to provide his own review of systems as he is sedated, intubated, and minimally responsive. Review of systems taken from the medical record and from available family.) Constitutional: COMPLAINS OF: Fatigue, Weight gain, Pain, Generalized weakness , Sleep problems, DENIES: Fever, Weight loss, Chills, Dizziness, Change in appetite Endocrine: DENIES: Polydipsia, Polyuria, Polyphagia Eyes: COMPLAINS OF: Vision loss, DENIES: Diplopia, Eye inflammation, Double Vision Ears, nose, mouth, throat: DENIES: Hearing loss, Vertigo, Oral lesions, Throat pain, Running Nose, Epistaxis Respiratory: COMPLAINS OF: Cough, Snoring, Wheezing, Sputum production, Shortness of breath, DENIES: Apneas, Hemoptysis Cardiovascular: COMPLAINS OF: Dyspnea on Exertion, DENIES: Chest pain, Syncope , Orthopnea Gastrointestinal: COMPLAINS OF: Dyspepsia or heartburn, DENIES: Abdominal pain , Black stools, Bloody stools, Diarrhea, Nausea, Vomiting Genitourinary: DENIES: Urinary incontinence, Hematuria Musculoskeletal: COMPLAINS OF: Joint pain, Stiffness, Back pain, Neck pain, Decreased range of motion Integumentary: DENIES: Tumors Hematologic/Lymphatics: DENIES: Bruising Immunologic/Allergic: DENIES: Eczema Neurologic: DENIES: Headache, Seizures, Tremor Psychiatric: COMPLAINS OF: Anxiety, Depression, Agitation, DENIES: Confusion, Hallucinations, Suicidal Ideation Past Family Social History Coded Allergies: No Known Allergies (Verified Allergy, Unknown, 07/20/17) Past Surgical History * Appendectomy * partial colectomy for volvulus * Lumbar spinal surgery in 1989, 1993, 2009, 2016 * Cervical laminectomy 2003 * Left rotator cuff repair 2002 * EGD 2008--gastric ulcer . Reported Medications Prehospitalization medications included the following: Albuterol inhaler 18 g twice daily as needed Rosuvastatin 10 mg p.o. q. Sunday/Sunday/Sunday Amlodipine 5 mg p.o. daily Trazodone 100 mg nightly Budesonide/formoterol 160/4.5 1 puff twice daily Valsartan 320 mg p.o. daily . Current Medications Medications (Trade) Dose Ordered Sig/Claudia Route Start Time Stop Time Status Last Admin Midazolam HCl 50 ml @ 2 mls/hr TITRATE PRN IV 07/20/17 23:45 (NS Flush) 2 ml UNSCH PRN IV FLUSH 07/21/17 00:00 (NS Flush) 2 ml BID IV FLUSH 07/21/17 09:00 07/23/17 08:59 (Prevacid Odt) 30 mg DAILY G-TUBE 07/21/17 09:00 07/23/17 08:59 (Tears Naturale Opth Soln) 1 drop TID EACH EYE 07/21/17 09:00 07/23/17 13:18 (Zofran Inj) 4 mg Q6H PRN IV PUSH 07/21/17 00:00 (Duoneb Neb) 1 ampule Q6HR NEB INH 07/21/17 04:00 07/23/17 15:21 (Albuterol Neb) 2.5 mg Q2HR NEB PRN INH 07/21/17 00:00 07/21/17 00:17 ([facility] Nursing Information) 1 Q361D XX 07/21/17 00:00 07/21/17 00:00 (Chlorhexidine 2% Cloth) 3 pack Taper DAILY@04 TOP 07/21/17 04:00 07/17/18 03:59 07/23/17 04:00 (Chlorhexidine 2% Cloth) 3 pack UNSCH PRN TOP 07/21/17 00:00 (Dilia-Colace) 1 tab BID PO 07/21/17 09:00 07/23/17 09:00 (Milk Of Magnesia Liq) 30 ml Q12H PRN PO 07/21/17 00:00 (Senokot) 17.2 mg Q12H PRN PO 07/21/17 00:00 (Dulcolax Supp) 10 mg DAILY PRN RECTAL 07/21/17 00:00 (Lactulose Liq) 30 ml DAILY PRN PO 07/21/17 00:00 (Peridex 0.12% Liq) 15 ml BID@08,20 MT 07/21/17 08:00 07/23/17 08:07 Propofol 100 ml @ 2.46 mls/hr TITRATE PRN IV 07/21/17 00:00 Fentanyl Citrate 250 ml @ 5 mls/hr TITRATE PRN IV 07/21/17 00:00 07/22/17 02:26 (D50w (Vial) Inj) 50 ml UNSCH PRN IV PUSH 07/21/17 00:00 (Glucagon Inj) 1 mg UNSCH PRN OTHER 07/21/17 00:00 (NovoLOG SUPPLEMENTAL SCALE) 1 Q6HR SQ 07/21/17 00:00 07/23/17 00:00 (Pulmicort Respule Neb) 0.5 mg Q12HR NEB NEB 07/21/17 08:00 07/23/17 07:36 (Brethine Inj) 1 mg UNSCH PRN SQ 07/21/17 00:30 Azithromycin 500 mg/Sodium Chloride 250 ml @ 250 mls/hr Q24H IV 07/21/17 01:00 07/28/17 00:59 07/23/17 00:44 (Heparin Inj) 5,000 units Q12HR SQ 07/21/17 21:00 07/23/17 09:01 (Norvasc) 5 mg HS PO 07/22/17 21:00 (Lactulose Liq) 30 ml DAILY PO 07/22/17 09:00 07/23/17 09:00 Lactated Ringer's 1,000 ml @ 125 mls/hr Q8H IV 07/23/17 07:00 07/23/17 13:13 (Apresoline Inj) 10 mg Q1H PRN IV PUSH 07/22/17 09:45 (Nitroglycerin 2% Oint) 2 inch Q6H PRN TOPICAL 07/22/17 09:45 Dexmedetomidine HCl 1000 mcg/ Sodium Chloride 250 ml @ 4.62 mls/hr TITRATE PRN IV 07/22/17 13:00 07/23/17 09:43 Clevidipine 50 ml @ 2 mls/hr TITRATE PRN IV 07/22/17 19:15 Potassium Phosphate 30 mmol/ Sodium Chloride 260 ml @ 43.333 mls/ hr ONCE ONCE IV 07/23/17 16:00 07/23/17 21:59 (Miralax) 17 gm BID PO 07/23/17 21:00 (Lactulose Liq) 30 ml QID PO 07/23/17 18:00 (Aspirin Chew) 324 mg DAILY CHEW 07/24/17 09:00 . Family History Patient's father at age 73 from a myocardial infarction. Patient's also believes the father had hypertension and diabetes. Patient's mother at age 84 from complications of a traumatic brain injury. One brother of a suicide. 2 brothers are alive and well. No known history of stroke. . Substance Use Tobacco: Patient has smoked 2 packs a day since his teenage years. Probably over 100 pack years. Alcohol: No history of alcohol abuse. Prescription med abuse:. Long history of chronic opioid use for his back pain Illicits: No known use of illicits. . Psychosocial History Patient is originally from [facility]. He has lived in [place] since 1997. Dropped out of school at age 17. No experience. 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 Mr. Castillo has been 5 times. He has been with his current -- Coty Vaughan--since 1997. The patient has 1 biological child -- Blake --who lives in [facility]. The patient is also close to his stepson -- Nishant --who is Coty's son. . Spiritual/Cultural Factors Uatsdin and spirituality have not been an important part of the patient's life. . Living Will: Copy in medical record Health Care Surrogate: Copy in medical record Durable Power of Cleaning Handyman: Completed, but not made available Date completed: Living will and healthcare surrogate designation were completed on 09/29/2016. . Health Care Surrogate(s): The healthcare surrogate is the patient's spouse--Coty Weaver . Documented care wishes: The patient's living will is the standard [place] living will. He has initialed only one condition to activate his wishes -- if he has "an end-stage condition." He would not want life prolonging procedures should be diagnosed with such condition. . Today's verbally stated goals: Patient is encephalopathic, mechanically intubated, and nonverbal. He cannot verbally state his own healthcare goals or preferences. . Family/friends goals: The patient's spouse--Coty--is the healthcare surrogate. She did not have any particular discussions with the patient's at the time he completed his living well. She indicates she would have some difficulty understanding what he felt an end-stage condition to be. At this point, she would want all aggressive care including resuscitation attempts until such time as she has a better idea about prognosis. . Ethical and Legal Issues Patient is incapacitated at this point to make his own medical decisions. It is unclear if/when he will regain capacity to do so. His is his designated healthcare surrogate. . Physical Exam Vital Signs Date Time Temp Pulse Resp B/P (MAP) Pulse Ox O2 Delivery O2 Flow Rate FiO2 07/23/17 15:51 97 40 07/23/17 14:00 54 07/23/17 12:00 98.9 57 22 122/69 (86) 96 07/23/17 12:00 60 07/23/17 12:00 40 07/23/17 11:27 98 40 07/23/17 10:00 59 07/23/17 08:00 60 07/23/17 08:00 40 07/23/17 08:00 98.9 57 22 122/69 (86) 96 07/23/17 07:37 96 40 07/23/17 07:36 40 07/23/17 06:00 62 07/23/17 06:00 99.0 62 20 121/67 (85) 94 07/23/17 06:00 40 07/23/17 04:25 99 40 07/23/17 04:00 40 07/23/17 04:00 58 07/23/17 04:00 99.7 58 22 112/63 (79) 98 07/23/17 02:00 40 07/23/17 02:00 61 07/23/17 02:00 99.3 61 20 111/61 (78) 98 07/23/17 01:06 97 40 07/23/17 00:00 98.9 64 21 134/76 (95) 99 07/23/17 00:00 40 07/22/17 22:08 97 40 07/22/17 22:00 40 07/22/17 22:00 99.0 61 20 100/55 (70) 97 07/22/17 20:00 98.9 72 20 131/62 (85) 94 07/22/17 20:00 40 07/22/17 19:30 95 40 07/22/17 18:00 76 18 146/95 (112) 96 07/22/17 18:00 84 07/22/17 17:00 75 27 157/73 (101) 96 07/22/17 16:12 96 40 07/22/17 16:00 97.5 70 26 154/84 (107) 95 07/22/17 16:00 40 07/22/17 16:00 70 . 07/23/17 07/24/17 19:00 07:00 Intake Total 1400 ml Balance 1400 ml IV Total 1400 ml . Exam CONSTITUTIONAL/GENERAL: This is an adequately nourished patient, sedated, mechanically ventilated, minimally responsive, in a medical intensive care unit bed. TUBES/LINES/DRAINS: Orotracheal tube; orogastric tube; SCDs; Garner catheter; peripheral IVs SKIN: Multiple tattoos. No jaundice, rashes, or lesions. No wounds seen anteriorly. Skin temperature appropriate. Not diaphoretic. HEAD: Atraumatic. Normocephalic. EYES: Pupils equal and round and reactive. Cannot evaluate extraocular movements. No scleral icterus. No injection or drainage. Fundi not examined. ENT: Unable to assess hearing.. Nose without bleeding or purulent drainage. Throat without visible erythema, exudates, masses, or lesions --though difficult to fully evaluate due to intubations. NECK: Trachea midline. No palpable thyroid enlargement or nodularity. CARDIOVASCULAR: Regular rate and rhythm without murmurs, gallops, or rubs. No JVD. Peripheral pulses symmetric. RESPIRATORY/CHEST: Symmetric, unlabored respirations. Clear to auscultation. Breath sounds equal bilaterally. No wheezes. Faint rhonchi heard bilaterally. GASTROINTESTINAL: Abdomen soft, non-tender, nondistended. No hepato-splenomegaly , or palpable masses. No guarding. Bowel sounds present. GENITOURINARY: Without palpable bladder distension. Garner catheter in place. MUSCULOSKELETAL: Extremities without clubbing, cyanosis. No joint effusion noted. No mottling. LYMPHATICS: No palpable cervical or supraclavicular adenopathy. NEUROLOGICAL: Sedated. Stirs but does not awaken to loud voice and exam. Will withdraw to noxious stimulus in all extremities. PSYCHIATRIC: Unable to evaluate due to level of responsiveness. . Diagnostic Tests Laboratory Laboratory Tests Test 07/20/17 22:30 07/20/17 22:50 07/20/17 23:12 07/21/17 00:00 White Blood Count 13.7 TH/MM3 (4.0-11.0) Red Blood Count 4.30 MIL/MM3 (4.50-5.90) Hemoglobin 13.9 GM/DL (13.0-17.0) Hematocrit 41.0 % (39.0-51.0) Mean Corpuscular Volume 95.3 FL (80.0-100.0) Mean Corpuscular Hemoglobin 32.4 PG (27.0-34.0) Mean Corpuscular Hemoglobin Concent 34.0 % (32.0-36.0) Red Cell Distribution Width 14.3 % (11.6-17.2) Platelet Count 336 TH/MM3 (150-450) Mean Platelet Volume 9.3 FL (7.0-11.0) Neutrophils (%) (Auto) 81.6 % (16.0-70.0) Lymphocytes (%) (Auto) 8.3 % (9.0-44.0) Monocytes (%) (Auto) 9.6 % (0.0-8.0) Eosinophils (%) (Auto) 0.1 % (0.0-4.0) Basophils (%) (Auto) 0.4 % (0.0-2.0) Neutrophils # (Auto) 11.2 TH/MM3 (1.8-7.7) Lymphocytes # (Auto) 1.1 TH/MM3 (1.0-4.8) Monocytes # (Auto) 1.3 TH/MM3 (0-0.9) Eosinophils # (Auto) 0.0 TH/MM3 (0-0.4) Basophils # (Auto) 0.0 TH/MM3 (0-0.2) CBC Comment AUTO DIFF Differential Comment AUTO DIFF CONFIRMED Platelet Estimate NORMAL (NORMAL) Platelet Morphology Comment NORMAL (NORMAL) Red Cell Morphology Comment NORMAL (NORMAL) Blood Urea Nitrogen 31 MG/DL (7-18) Creatinine 3.82 MG/DL (0.60-1.30) Random Glucose 115 MG/DL (74-106) Total Protein 7.3 GM/DL (6.4-8.2) Albumin 4.0 GM/DL (3.4-5.0) Calcium Level 8.2 MG/DL (8.5-10.1) Alkaline Phosphatase 75 U/L (45-117) Aspartate Amino Transf (AST/SGOT) 165 U/L (15-37) Alanine Aminotransferase (ALT/SGPT) 107 U/L (12-78) Total Bilirubin 0.2 MG/DL (0.2-1.0) Sodium Level 134 MEQ/L (136-145) Potassium Level 7.4 MEQ/L (3.5-5.1) Chloride Level 99 MEQ/L (98-107) Carbon Dioxide Level 23.7 MEQ/L (21.0-32.0) Anion Gap 11 MEQ/L (5-15) Estimat Glomerular Filtration Rate 16 ML/MIN (>89) Lactate Dehydrogenase 501 U/L (87-241) Total Creatine Kinase 5044 U/L (39-308) Creatine Kinase MB 53.2 NG/ML (0.5-3.6) Creatine Kinase MB % 1.1 % (0.0-4.0) Troponin I LESS THAN 0.02 NG/ML Salicylates Level 4.0 MG/DL (2.8-20.0) Acetaminophen Level LESS THAN 2.0 MCG/ML Ethyl Alcohol Level LESS THAN 3 MG/DL (0-5) Urine Color YELLOW (YELLW/STRAW) Urine Turbidity CLEAR (CLEAR) Urine pH 6.0 (5.0-8.5) Urine Specific [place] 1.018 (1.002-1.035) Urine Protein 300 OR GREATER mg/dL Urine Glucose (UA) NEG mg/dL (NEG) Urine Ketones NEG mg/dL (NEG) Urine Occult Blood MOD (NEG) Urine Nitrite NEG (NEG) Urine Bilirubin NEG (NEG) Urine Urobilinogen 0.2 MG/DL (LESS THAN Urine Leukocyte Esterase NEG (NEG) Urine RBC 3 /hpf (0-3) Urine WBC 16 /hpf (0-5) Urine Bacteria OCC /hpf (NONE) Urine Hyaline Casts 46 /lpf (RARE) Urine Mucus MANY /lpf (OCC) Microscopic Urinalysis Comment CULTURE INDICATED Urine Eosinophils NONE SEEN /HPF (NONE SEEN) Urine Random Creatinine 185.4 MG/DL Urine Random Sodium 65 MEQ/L Urine Opiates Screen POS (NEG) Urine Barbiturates Screen NEG (NEG) Urine Amphetamines Screen POS (NEG) Urine Benzodiazepines Screen POS (NEG) Urine Cocaine Screen POS (NEG) Urine Cannabinoids Screen POS (NEG) Lactic Acid Level 2.6 mmol/L (0.4-2.0) Blood Gas Puncture Site RT FEMORAL Blood Gas Patient Temperature 98.6 Blood Gas HCO3 23 mmol/L (22-26) Blood Gas Base Excess -5.0 mmol/L (-2-2) Blood Gas Oxygen Saturation 95 % (90-100) Arterial Blood pH 7.16 (7.380-7.420) Arterial Blood Partial Pressure CO2 67 mmHg (38-42) Arterial Blood Partial Pressure O2 315 mmHG (61-120) Arterial Blood Oxygen Content 15.9 Vol % (12.0-20.0) Arterial Blood Carboxyhemoglobin 1.5 % (0-4) Arterial Blood Methemoglobin 0.7 % (0-2) Blood Gas Hemoglobin 11.4 G/DL (12.0-16.0) Oxygen Delivery Device VENTILATOR Blood Gas Ventilator Setting Blood Gas Inspired Oxygen 70 % Test 07/21/17 00:20 07/21/17 01:20 07/21/17 04:58 07/21/17 05:03 Prothrombin Time 13.0 SEC (9.8-11.6) 10.7 SEC (9.8-11.6) Prothromb Time International Ratio 1.3 RATIO 1.1 RATIO Activated Partial Thromboplast Time 26.4 SEC (24.3-30.1) 20.8 SEC (24.3-30.1) Nasal Screen MRSA (PCR) MRSA NOT DETECTED (NOT Blood Gas Puncture Site LT RADIAL Blood Gas Patient Temperature 98.6 Blood Gas HCO3 26 mmol/L (22-26) Blood Gas Base Excess -0.4 mmol/L (-2-2) Blood Gas Oxygen Saturation 90 % (90-100) Arterial Blood pH 7.27 (7.380-7.420) Arterial Blood Partial Pressure CO2 59 mmHg (38-42) Arterial Blood Partial Pressure O2 75 mmHg (61-120) Arterial Blood Oxygen Content 16.4 Vol % (12.0-20.0) Arterial Blood Carboxyhemoglobin 0.0 % (0-4) Arterial Blood Methemoglobin 1.0 % (0-2) Blood Gas Hemoglobin 12.9 G/DL (12.0-16.0) Oxygen Delivery Device VENTILATOR Blood Gas Ventilator Setting [facility]- Blood Gas Inspired Oxygen 50 % White Blood Count 10.5 TH/MM3 (4.0-11.0) Red Blood Count 4.12 MIL/MM3 (4.50-5.90) Hemoglobin 13.1 GM/DL (13.0-17.0) Hematocrit 39.1 % (39.0-51.0) Mean Corpuscular Volume 94.7 FL (80.0-100.0) Mean Corpuscular Hemoglobin 31.8 PG (27.0-34.0) Mean Corpuscular Hemoglobin Concent 33.6 % (32.0-36.0) Red Cell Distribution Width 14.1 % (11.6-17.2) Platelet Count 226 TH/MM3 (150-450) Mean Platelet Volume 7.6 FL (7.0-11.0) Neutrophils (%) (Auto) 80.6 % (16.0-70.0) Lymphocytes (%) (Auto) 10.9 % (9.0-44.0) Monocytes (%) (Auto) 8.2 % (0.0-8.0) Eosinophils (%) (Auto) 0.1 % (0.0-4.0) Basophils (%) (Auto) 0.2 % (0.0-2.0) Neutrophils # (Auto) 8.4 TH/MM3 (1.8-7.7) Lymphocytes # (Auto) 1.1 TH/MM3 (1.0-4.8) Monocytes # (Auto) 0.9 TH/MM3 (0-0.9) Eosinophils # (Auto) 0.0 TH/MM3 (0-0.4) Basophils # (Auto) 0.0 TH/MM3 (0-0.2) CBC Comment DIFF FINAL Differential Comment Blood Urea Nitrogen 27 MG/DL (7-18) Creatinine 2.52 MG/DL (0.60-1.30) Random Glucose 82 MG/DL (74-106) Calcium Level 7.8 MG/DL (8.5-10.1) Phosphorus Level 4.4 MG/DL (2.5-4.9) Magnesium Level 2.5 MG/DL (1.5-2.5) Sodium Level 140 MEQ/L (136-145) Potassium Level 4.7 MEQ/L (3.5-5.1) Chloride Level 105 MEQ/L (98-107) Carbon Dioxide Level 25.3 MEQ/L (21.0-32.0) Anion Gap 10 MEQ/L (5-15) Estimat Glomerular Filtration Rate 26 ML/MIN (>89) Lactic Acid Level 2.2 mmol/L (0.4-2.0) Total Creatine Kinase 02703 U/L (39-308) Creatine Kinase MB 279.2 NG/ML (0.5-3.6) Creatine Kinase MB % 1.0 % (0.0-4.0) Hepatitis A IgM Antibody NONREACTIVE (NONREACTIVE) Hepatitis B Surface Antigen NONREACTIVE (NONREACTIVE) Hepatitis B Core IgM Antibody NONREACTIVE (NONREACTIVE) Hepatitis C IgG Antibody NONREACTIVE (NONREACTIVE) Test 07/21/17 14:51 07/21/17 15:50 07/21/17 16:10 07/21/17 20:24 Erythrocyte Sedimentation Rate 13 mm/hr (0-20) Ammonia 24 MCMOL/L (11-32) Total Creatine Kinase 48439 U/L (39-308) Creatine Kinase MB 195.6 NG/ML (0.5-3.6) Creatine Kinase MB % 0.7 % (0.0-4.0) Total Protein 5.6 GM/DL (6.0-7.6) Vitamin B12 Level 574 PG/ML (193-986) Folate 19.6 NG/ML (3.1-17.5) Free Thyroxine 0.81 NG/DL (0.76-1.46) Thyroid Stimulating Hormone 3rd Gen 0.915 uIU/ML (0.358-3.740) Rheumatoid Factor Screen NEGATIVE (NEGATIVE) Rheumatoid Factor Titer IU/ML (0.0-14.9) Anti-Nuclear Antibody Screen NEG (NEG) Rapid Plasma Reagin NON-REACTIVE (NON-REACTVE) Blood Gas Puncture Site LT RADIAL LT RADIAL Blood Gas Patient Temperature 98.6 98.6 Blood Gas HCO3 26 mmol/L (22-26) 25 mmol/L (22-26) Blood Gas Base Excess 1.2 mmol/L (-2-2) 0.9 mmol/L (-2-2) Blood Gas Oxygen Saturation 93 % (90-100) 93 % (90-100) Arterial Blood pH 7.36 (7.380-7.420) 7.40 (7.380-7.420) Arterial Blood Partial Pressure CO2 48 mmHg (38-42) 42 mmHg (38-42) Arterial Blood Partial Pressure O2 82 mmHg (61-120) 80 mmHg (61-120) Arterial Blood Oxygen Content 16.1 Vol % (12.0-20.0) 16.0 Vol % (12.0-20.0) Arterial Blood Carboxyhemoglobin 0.6 % (0-4) 0.5 % (0-4) Arterial Blood Methemoglobin 1.9 % (0-2) 1.9 % (0-2) Blood Gas Hemoglobin 12.3 G/DL (12.0-16.0) 12.2 G/DL (12.0-16.0) Oxygen Delivery Device VENTILATOR VENTILATOR Blood Gas Ventilator Setting PRVC/AC PRVC/AC Blood Gas Inspired Oxygen 40 % 40 % Lactic Acid Level 1.1 mmol/L (0.4-2.0) Test 07/22/17 04:05 07/22/17 05:10 07/23/17 03:27 White Blood Count 10.0 TH/MM3 (4.0-11.0) 9.5 TH/MM3 (4.0-11.0) Red Blood Count 3.76 MIL/MM3 (4.50-5.90) 3.42 MIL/MM3 (4.50-5.90) Hemoglobin 11.9 GM/DL (13.0-17.0) 10.9 GM/DL (13.0-17.0) Hematocrit 35.3 % (39.0-51.0) 31.8 % (39.0-51.0) Mean Corpuscular Volume 94.1 FL (80.0-100.0) 93.1 FL (80.0-100.0) Mean Corpuscular Hemoglobin 31.6 PG (27.0-34.0) 31.8 PG (27.0-34.0) Mean Corpuscular Hemoglobin Concent 33.5 % (32.0-36.0) 34.2 % (32.0-36.0) Red Cell Distribution Width 13.9 % (11.6-17.2) 13.8 % (11.6-17.2) Platelet Count 219 TH/MM3 (150-450) 209 TH/MM3 (150-450) Mean Platelet Volume 8.3 FL (7.0-11.0) 8.3 FL (7.0-11.0) Neutrophils (%) (Auto) 73.1 % (16.0-70.0) 67.9 % (16.0-70.0) Lymphocytes (%) (Auto) 13.8 % (9.0-44.0) 17.4 % (9.0-44.0) Monocytes (%) (Auto) 11.5 % (0.0-8.0) 10.1 % (0.0-8.0) Eosinophils (%) (Auto) 1.2 % (0.0-4.0) 4.0 % (0.0-4.0) Basophils (%) (Auto) 0.4 % (0.0-2.0) 0.6 % (0.0-2.0) Neutrophils # (Auto) 7.3 TH/MM3 (1.8-7.7) 6.4 TH/MM3 (1.8-7.7) Lymphocytes # (Auto) 1.4 TH/MM3 (1.0-4.8) 1.7 TH/MM3 (1.0-4.8) Monocytes # (Auto) 1.2 TH/MM3 (0-0.9) 1.0 TH/MM3 (0-0.9) Eosinophils # (Auto) 0.1 TH/MM3 (0-0.4) 0.4 TH/MM3 (0-0.4) Basophils # (Auto) 0.0 TH/MM3 (0-0.2) 0.1 TH/MM3 (0-0.2) CBC Comment DIFF FINAL DIFF FINAL Differential Comment Blood Urea Nitrogen 16 MG/DL (7-18) 10 MG/DL (7-18) Creatinine 0.91 MG/DL (0.60-1.30) 0.78 MG/DL (0.60-1.30) Random Glucose 91 MG/DL (74-106) 143 MG/DL (74-106) Total Protein 5.4 GM/DL (6.4-8.2) 5.1 GM/DL (6.4-8.2) Albumin 2.6 GM/DL (3.4-5.0) 2.2 GM/DL (3.4-5.0) Calcium Level 7.3 MG/DL (8.5-10.1) 7.1 MG/DL (8.5-10.1) Phosphorus Level 1.7 MG/DL (2.5-4.9) 1.2 MG/DL (2.5-4.9) Magnesium Level 2.4 MG/DL (1.5-2.5) 2.2 MG/DL (1.5-2.5) Alkaline Phosphatase 80 U/L (45-117) 74 U/L (45-117) Aspartate Amino Transf (AST/SGOT) 574 U/L (15-37) 336 U/L (15-37) Alanine Aminotransferase (ALT/SGPT) 185 U/L (12-78) 141 U/L (12-78) Total Bilirubin 0.3 MG/DL (0.2-1.0) 0.4 MG/DL (0.2-1.0) Sodium Level 145 MEQ/L (136-145) 142 MEQ/L (136-145) Potassium Level 3.7 MEQ/L (3.5-5.1) 3.5 MEQ/L (3.5-5.1) Chloride Level 109 MEQ/L (98-107) 107 MEQ/L (98-107) Carbon Dioxide Level 27.0 MEQ/L (21.0-32.0) 28.3 MEQ/L (21.0-32.0) Anion Gap 9 MEQ/L (5-15) 7 MEQ/L (5-15) Estimat Glomerular Filtration Rate 84 ML/MIN (>89) 100 ML/MIN (>89) Hemoglobin A1c 5.6 % (4.3-6.0) Protein Corrected Calcium 8.2 MG/DL (8.5-10.1) 8.2 MG/DL (8.5-10.1) Total Creatine Kinase 73857 U/L (39-308) Creatine Kinase MB 120.4 NG/ML (0.5-3.6) Creatine Kinase MB % 0.6 % (0.0-4.0) Blood Gas Puncture Site RT RADIAL Blood Gas Patient Temperature 98.6 Blood Gas HCO3 25 mmol/L (22-26) Blood Gas Base Excess 0.6 mmol/L (-2-2) Blood Gas Oxygen Saturation 94 % (90-100) Arterial Blood pH 7.42 (7.380-7.420) Arterial Blood Partial Pressure CO2 39 mmHg (38-42) Arterial Blood Partial Pressure O2 83 mmHg (61-120) Arterial Blood Oxygen Content 15.1 Vol % (12.0-20.0) Arterial Blood Carboxyhemoglobin 0.5 % (0-4) Arterial Blood Methemoglobin 1.9 % (0-2) Blood Gas Hemoglobin 11.4 G/DL (12.0-16.0) Oxygen Delivery Device VENTILATOR Blood Gas Ventilator Setting PRVC/AC Blood Gas Inspired Oxygen 40 % Triglycerides Level 94 MG/DL (42-150) Cholesterol Level 120 MG/DL (120-200) LDL Cholesterol 59 MG/DL (0-99) HDL Cholesterol 42.4 MG/DL (40.0-60.0) Cholesterol/HDL Ratio 2.83 RATIO Thyroid Stimulating Hormone 3rd Gen 1.370 uIU/ML (0.358-3.740) Random Cortisol 10.6 MCG/DL . Result Diagram: 07/23/17 0327 07/23/17 0327 Microbiology Microbiology Date/Time Source Procedure Growth Status 07/21/17 05:03 Blood Peripheral Aerobic Blood Culture - Preliminary NO GROWTH IN 2 DAYS Resulted 07/21/17 05:03 Blood Peripheral Anaerobic Blood Culture - Preliminary NO GROWTH IN 2 DAYS Resulted 07/21/17 04:40 Blood Peripheral Aerobic Blood Culture - Preliminary NO GROWTH IN 2 DAYS Resulted 07/21/17 04:40 Blood Peripheral Anaerobic Blood Culture - Preliminary NO GROWTH IN 2 DAYS Resulted 07/22/17 09:28 Nasal Washing Influenza Types A,B Antigen (LEO) - Final NEGATIVE FOR FLU A AND B ANTIGEN.... Complete 07/21/17 00:45 Sputum Endotracheal Gram Stain - Final Complete 07/21/17 00:45 Sputum Endotracheal Sputum Culture - Final HEAVY GROWTH NORMAL RESPIRATORY LUBA Complete 07/20/17 22:50 Urine Catheterized Urine Legionella Antigen - Final PRESUMPTIVE NEGATIVE FOR LEGIONELLA P... Complete 07/20/17 22:50 Urine Catheterized Urine Streptococcus pneumoniae Antigen (M - Final PRESUMPTIVE NEGATIVE FOR STREPTOCOCCU... Complete 07/20/17 22:50 Urine Clean Catch Urine Culture - Final NO GROWTH IN 48 HOURS. Complete . Imaging Last Impressions Chest X-Ray 07/23/17 0600 Signed Impressions: Service Date/Time: Sunday, July 23, 2017 04:10 - CONCLUSION: Lungs grossly clear. Tubes and catheter in good position. Ankur Shields MD Neck Magnetic Resonance Angiography 07/21/17 0000 Signed Impressions: Service Date/Time: Friday, July 21, 2017 08:40 - CONCLUSION: No acute neck arteriovascular abnormality is identified. There is no significant stenosis within either internal carotid artery. Lonnie Ross MD Head Magnetic Resonance Angiography 07/21/17 0000 Signed Impressions: Service Date/Time: Friday, July 21, 2017 08:40 - CONCLUSION: No acute intracranial vascular abnormality is identified. Lonnie Ross MD Brain MRI 07/21/17 0000 Signed Impressions: Service Date/Time: Friday, July 21, 2017 08:40 - CONCLUSION: Multifocal areas of restricted diffusion/recent ischemia within the centrum semiovale bilaterally, bilateral occipital lobes, bilateral basal ganglia, bilateral temporal lobes, and bilateral cerebellar hemispheres. Findings could be related to global anoxic event or less likely embolic phenomenon. Lonnie Ross MD Abdomen Ultrasound 07/21/17 0000 Signed Impressions: Service Date/Time: Friday, July 21, 2017 15:47 - CONCLUSION: Cholelithiasis. No gallbladder wall thickening or pericholecystic fluid. Victor Manuel Barros MD Head CT 07/20/17 Signed Impressions: Service Date/Time: Friday, July 21, 2017 00:53 - CONCLUSION: Abnormal brain appearance. Recommend MRI for further evaluation Lonnie Lock MD . Procedures * Intubation/mechanical ventilation . Patient/Family Conference Present at Family Conference: Spouse -- Coty Son -- Blake . Family Conference Time (mins): 50 Issues Discussed: * Palliative care role, purpose, approach * Additional medical, psychosocial, and spiritual history * Patients general health, functional status, and cognitive changes in the months leading up to the current hospitalization * Patient/family understanding of the current medical problems * Patient/family understanding of prognosis * Patients goals of care as best understood from advance directives and/or conversations and/or values * Current medical treatment options and benefits/burdens of those options * Questions answered to the best of my ability * Palliative care contact information provided . Assessment and Plan Disease Oriented Problem List: (1) Stroke (2) Acute respiratory failure (3) Failed back syndrome (4) COPD (chronic obstructive pulmonary disease) (5) Hyperkalemia (6) Acute kidney injury (7) Rhabdomyolysis (8) Tobacco abuse disorder (9) Chronic, continuous use of opioids (10) Depression (11) Hypertension (12) Hyperlipidemia Symptom Scale: (1) Pain 0-10 Scale: Unable to quantify Comment: Patient has long history of chronic pain from his back for which he has undergone multiple surgeries. Has been on chronic opioids for many years. Additional sources of pain might now also include prolonged bedbound status; Garner catheter; vascular access catheters; restraints; orotracheal intubation; orogastric intubation. (2) Encephalopathy 0-10 Scale: Unable to quantify Comment: Encephalopathy may be multifactorial. It appears he has had multiple strokes, and acute kidney injury, and electrolyte abnormalities all of which which are likely contributing to encephalopathy. . . (3) Dyspnea 0-10 Scale: Unable to quantify Comment: Currently managed with mechanical ventilation. . Pertinent Non-Medical Issues Psychosocial: Patient is well supported locally by his spouse. He has a biological son who lives in [place], [place], but who is here now. Spiritual: Uatsdin and spirituality have not played an important role in his life. Legal: Patient has a living will and designation of healthcare surrogate currently scanned into our electronic medical record. His is his surrogate. Ethical issues impacting care: Patient is currently incapacitated to make his own healthcare decisions. It is unclear if/when he will regain capacity to do so. . Important Contacts * Coty Weaver (spouse and health care surrogate) [phone] and * Blake Castillo (son) [phone] . Prognosis The cause of the patient's current encephalopathy remains uncertain. Hypoxic injury, stroke, drug effect, and metabolic issues all remain in the differential. It remains difficult to prognosticate the likely degree of neurological improvement. The sooner we are able to see neurologic improvement and the more rapid the recovery, the more hopeful we will be. To what extent the patient also has a significant substance abuse problem that may be impacting recovery and prognosis is unknown at this time. . Code Status: Full Code Plan == CODE STATUS : FULL CODE == Patient is currently incapacitated to make his own healthcare decisions. Decision Making: His spouse--Coty Weaver --is his designated healthcare surrogate. == Goals of medical treatment: Currently, the goals are quite appropriately aggressive including full resuscitation. Goals may understandably change as we become better able to prognosticate neurologic outcome. == Symptoms (see symptom descriptions above): * Pain: The challenge is trying to keep this patient comfortable while minimizing sedation to better assess neurologic status. Current orders for analgesics appear adequate at this time. It is hard to know patient's opiate needs as it is unclear how much opiates he was using on a regular basis. It can be assumed that because of chronic opioid use, his opioid needs would be higher than average. We can also assume that he is at high risk of opioid withdrawal should be try and down taper opioids. No further recommendations at this time. * Dyspnea: Patient is a long-term smoker and now unable to protect his airway. Dyspnea is currently being managed by mechanical ventilation. No further recommendations at this time. * Agitation: Agitation is probably from a multifactorial delirium. Patient has orders for dexmedetomidine. No further recommendations at this time * Encephalopathy multifactorial.: We will continue to address the fixable contributors such as metabolic issues and possible infection. == Patient's spouse would like to have the patient's community physician have access to pertinent records. == Spouse and son are very interested in details of care and appreciate being kept up to date. == Palliative care will continue to follow to assist with symptom management and to further clarify goals of medical treatment as the clinical course evolves. . Thank you for the opportunity to participate in the care of Mr. Castillo. . Attestation To help prompt me to consider important information that might be impacting today's encounter and assessment, information from prior notes written by myself or my colleagues may have been "brought forward" into today's note. My signature on this note, however, is an attestation that I personally performed the exam, history, and/or decision-making noted today, and, unless otherwise indicated, the interactions with patient, family, and staff as well as the review of records all occurred today. I also attest that the listed assessment and stated plan reflect my best clinical judgment today based on the combination of historical information, prior notes, and today's exam/ interactions. When time spent is documented, it refers only to time spent today by the signer, or if indicated, combined time spent today by collaborating physician/nurse practitioner. . Paco Plata MD July 23, 2017 17:15
--- NOTE | 2017-07-23 17:31 | ECHRPT ---
Indication: CVA/TIA CONCLUSIONS Normal left ventricular size. Mild concentric left ventricular hypertrophy. The left ventricular systolic function is normal with an estimated ejection fraction of 55%. There is trace tricuspid valve regurgitation. The estimated pulmonary arterial pressure is 26 mmHg. BP: 121 / 67 HR: 62 Rhythm: Sinus MEASUREMENTS (Male / Female) Normal Values Technical Quality:Fair 2D ECHO LV Diastolic Diameter PLAX 5.1 cm 4.2 - 5.9 / 3.9 - 5.3 cm LV Systolic Diameter PLAX 3.5 cm IVS Diastolic Thickness 1.1 cm 0.6 - 1.0 / 0.6 - 0.9 cm LVPW Diastolic Thickness 1.1 cm 0.6 - 1.0 / 0.6 - 0.9 cm LV Relative Wall Thickness 0.4 RV Internal Dim ED PLAX 2.1 cm LVOT Diameter 1.8 cm Aortic Root Diameter 3.4 cm LA Systolic Diameter LX 3.6 cm 3.0 - 4.0 / 2.7 - 3.8 cm M-MODE AV Cusp Separation MM 2.0 cm DOPPLER AV Peak Velocity 95.1 cm/s AV Peak Gradient 3.6 mmHg AV Mean Gradient 2.0 mmHg AV Velocity Time Integral 19.2 cm LVOT Peak Velocity 72.2 cm/s LVOT Peak Gradient 2.1 mmHg LVOT Velocity Time Integral 14.7 cm AV Area Cont Eq vti 1.9 cm AV Area Cont Eq pk 1.9 cm Mitral E Point Velocity 73.1 cm/s Mitral A Point Velocity 69.6 cm/s Mitral E to A Ratio 1.1 LV E' Lateral Velocity 6.5 cm/s Mitral E to LV E' Lateral Ratio 11.2 LV E' Septal Velocity 7.2 cm/s Mitral E to LV E' Septal Ratio 10.1 TR Peak Velocity 198.0 cm/s TR Peak Gradient 15.7 mmHg Right Atrial Pressure 10.0 mmHg Pulmonary Artery Systolic Pressu 25.7 mmHg Right Ventricular Systolic Press 25.7 mmHg PV Peak Velocity 58.7 cm/s PV Peak Gradient 1.4 mmHg FINDINGS LEFT VENTRICLE Normal left ventricular size. Mild concentric left ventricular hypertrophy. The left ventricular systolic function is normal with an estimated ejection fraction of 55%. RIGHT VENTRICLE Normal right ventricular size and systolic function. LEFT ATRIUM The left atrial size is normal. RIGHT ATRIUM The right atrial size is normal. ATRIAL SEPTUM No atrial level shunt is demonstrated by color flow Doppler interrogation. AORTA The aortic root and proximal ascending aorta are normal in size on limited imaging. MITRAL VALVE Structurally normal mitral valve. No mitral valve stenosis or regurgitation. AORTIC VALVE Trileaflet aortic valve. No aortic valve stenosis or regurgitation. TRICUSPID VALVE There is trace tricuspid valve regurgitation. The estimated pulmonary arterial pressure is 25.7 mmHg. PULMONARY VALVE No pulmonary valve regurgitation or stenosis. VESSELS The inferior vena cava is normal in size. PERICARDIUM No pericardial effusion. Addison Hargrove MD, FACC (Electronically Signed) Final Date:23 Jul 2017 17:30
[2017-07-23] MEDS: POLYETHYLENE GLYCOL 17 GM PKG PO SCH (21:00)
[2017-07-23] MEDS: amLODIPine BESYLATE 5 MG TAB PO SCH (21:18)
[2017-07-24] VITALS (19 sets, daily range): BP systolic 105–160; BP diastolic 55–85; PULSE 51–67; RESP 19–24; TEMP 97.7–100.7; O2SAT 92–99
[2017-07-24] MEDS: DEXMEDETOMIDINE INJ 1,000 MCG in SODIUM CHLOR 0.9% 250 ML INJ 240 ML IV PRN ×3 (00:20→23:35)
[2017-07-24] MEDS: AZITHROMYCIN INJ 500 MG in SODIUM CHLOR 0.9% 250 ML INJ 250 ML IV SCH (01:24)
[2017-07-24] MEDS: LACTATED RINGER'S 1000 ML INJ 1,000 ML IV SCH ×3 (02:36→18:20)
[2017-07-24] MEDS: hydrALAZINE HCL 20 MG/ML VIAL IV PUSH PRN ×2 (02:37→19:51)
[2017-07-24] MEDS: CHLORHEXIDINE GLUCONATE 2 % 1 PACK (2 CLOTHS) TOP SCH (04:00)
[2017-07-24] MEDS: RESP: ALBUTEROL 2.5 MG/IPRATROPIUM 0.5 MG NEB (SCH) INH ×4 (04:39→20:27)
--- NOTE | 2017-07-24 05:38 | RADRPT ---
EXAM DATE/TIME: 07/24/2017 03:41 [facility] COMPARISON: CHEST SINGLE AP, July 23, 2017, 4:10. INDICATIONS : Short of breath. MEDICAL HISTORY : Hypertension. Diabetes mellitus type II. SURGICAL HISTORY : Colon resection. Fusion, cervical. ENCOUNTER: Subsequent ACUITY: 4 - 6 days PAIN SCORE: 0/10 LOCATION: Bilateral chest FINDINGS: A single view of the chest demonstrates the ET tube and NG tube in good position. There is mild perih ilar vascular congestion, unchanged.. The cardiomediastinal contours are unremarkable. Osseous stru ctures are intact. CONCLUSION: Patchy diffuse interstitial prominence and pulmonary vascular prominence unchanged. Ankur Shields MD on July 24, 2017 at 5:36 Board Certified Radiologist. This report was verified electronically.
[2017-07-24] MEDS: INSULIN ASPART SUPPLEMENTAL SCALE SQ SCH ×4 (05:41→18:00)
[2017-07-24 06:15] LABS: AUTOMATED NEUTROPHIL # 8.9 TH/MM3 (1.8-7.7); BASOPHIL % 0.2 % (0.0-2.0); EOSINOPHIL # 0.1 TH/MM3 (0-0.4); EOSINOPHIL % 1.1 % (0.0-4.0); HEMOGLOBIN 11.6 GM/DL (13.0-17.0); LYMPH % 9.5 % (9.0-44.0); MEAN CELL VOLUME 93.2 FL (80.0-100.0); MEAN CORPUSCULAR HEMOGLOBIN 31.9 PG (27.0-34.0); MEAN CORPUSCULAR HGB CONC 34.2 % (32.0-36.0); MEAN PLATELET VOLUME 8.3 FL (7.0-11.0); MONO % 6.6 % (0.0-8.0); MONOCYTE # 0.7 TH/MM3 (0-0.9); NEUT % 82.6 % (16.0-70.0); PLATELET COUNT 230 TH/MM3 (150-450); RED BLOOD COUNT 3.65 MIL/MM3 (4.50-5.90); RED CELL DISTRIBUTION WIDTH 13.6 % (11.6-17.2); WHITE BLOOD COUNT 10.8 TH/MM3 (4.0-11.0)
[2017-07-24 06:32] LABS: ALBUMIN 2.1 GM/DL (3.4-5.0); ALT (GPT) 128 U/L (12-78); AST (GOT) 252 U/L (15-37); BICARBONATE 27.1 MEQ/L (21.0-32.0); BLOOD UREA NITROGEN 9 MG/DL (7-18); CALCIUM 7.7 MG/DL (8.5-10.1); CHLORIDE 108 MEQ/L (98-107); GLOMERULAR FILTRATION RATE 113 ML/MIN (>89); GLUCOSE,RANDOM 123 MG/DL (74-106); MAGNESIUM 2.3 MG/DL (1.5-2.5); SODIUM (NA) 142 MEQ/L (136-145)
[2017-07-24 06:56] LABS: ALKALINE PHOSPHATASE 78 U/L (45-117); PHOSPHORUS 2.8 MG/DL (2.5-4.9); TOTAL BILIRUBIN ADULT 0.3 MG/DL (0.2-1.0); TOTAL PROTEIN 5.4 GM/DL (6.4-8.2)
[2017-07-24] MEDS: RESP: BUDESONIDE 0.5 MG/2 ML NEB NEB SCH ×2 (07:53→20:00)
[2017-07-24] MEDS: CHLORHEXIDINE 0.12% (ORAL KIT) 15 ML CUP MT SCH ×2 (08:00→19:57)
[2017-07-24] MEDS: POLYETHYLENE GLYCOL 17 GM PKG PO SCH ×2 (09:00→19:56)
[2017-07-24] MEDS: ARTIFICIAL TEARS OPTH SOLN 15 ML BTL EACH EYE SCH ×3 (09:00→18:00)
[2017-07-24] MEDS: ASPIRIN 81 MG CHEW TAB CHEW SCH (09:00)
[2017-07-24] MEDS: LACTULOSE SYRUP 20 GM/30 ML CUP PO SCH ×5 (09:00→19:56)
[2017-07-24] MEDS: DOCUSATE SODIUM 50 MG/SENNA 8.6 MG TAB PO SCH ×2 (09:00→19:57)
--- NOTE | 2017-07-24 09:14 | HHI.CCPN ---
Subjective Remarks/Hospital Course This is a 66-year-old male. Date of admission 07/20/2017. Past medical history includes hypertension, hyperlipidemia, COPD with ongoing tobacco abuse, peptic ulcer disease and anxiety. He also has history of lumbar stenosis, degenerative joint disease of the back and cervical spine. He presents to [facility] with the following history. 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 According to his at bedside, patient is drug tested. Patient returned home from work on Sunday after his 30 day work schedule. Patient was changing the tire of a bike friend yesterday. Patient returned home in no acute distress. Today, patient was tired and was sleeping all day. Initially patient had similar symptoms at lunch. When the attempted to wake him up later this evening patient be was nonresponsive with a weak pulse. She attempted to use ammonia without response. At that time EMS was called and patient was transferred to [facility]. Patient was noted to be an acute change with a creatinine of 3.8. Baseline is normal. Potassium is 7.4 without EKG changes. Patient received bicarbonate, insulin/D50, calcium and Kayexalate in the ED. Repeat potassium 3 hours. Patient is making urine and appears concentrated. UA is pending. Patient leukocytosis 13,000. CPK was 5000. Lactic acid was 2.6. Urine drug screen revealed positive for opiates, amphetamines, benzodiazepines, THC and cocaine. Head CT is currently pending. Due to altered mental status patient was admitted after receiving 20 mg etomidate and 100 mg succinylcholine by ED physician. Patient also received 4 mg of midazolam and after which patient became hypotensive is currently receiving 3 L normal saline wide open. Head CT is currently pending. Patient received clindamycin along with piperacillin/ tazobactam in the ED. 07/21: Overnight the patient required to protamine infusion low-dose currently being weaned off. The patient continues on fentanyl and propofol infusion for ventilator synchrony. Patient's undergoing MRI evaluation results pending. The patient was noted to have significant elevation in creatinine kinase the patient is bolused 1 L IV fluids increase in normal saline 200 cc/hr. Lactic acid downtrending will continue to trend creatinine noted to be decreasing. 07/22: Currently afebrile. Off all vasopressors. We will switch to LR at 200 cc an hour. Recheck BMP this afternoon. Moving all 4 x-rays spontaneously right upper extremity less. Opens eyes but not following commands. Positive gag and corneal reflex. Subjective: 07/23: Currently on dexmedetomidine drip at 0.7 mg/kg/h. Minimal response to distinguish. Will hold at the present time and reassess neurological condition. EEG showed no epileptiform activity. Tolerating tube feeding. No bowel movement since admission. Currently afebrile. 07/24: Per nursing staff patient was off sedation over the night and he woke up and followed some simple commands, but due to agitation, hypertension and tachycardia patient was restarted on sedation. He is currently on Precedex at 1 , tolerating CPAP, sedated. T-max of 99. I/O 3029/1451. Objective Vital Signs Date Time Temp Pulse Resp B/P (MAP) Pulse Ox O2 Delivery O2 Flow Rate FiO2 07/24/17 07:53 40 07/24/17 07:53 95 07/24/17 06:00 56 07/24/17 04:00 98.3 22 105/55 (72) 07/21/17 00:55 Ventilator 07/20/17 22:15 15.00 Intake and Output 07/24/17 07/24/17 07/25/17 08:00 16:00 00:00 Intake Total 129 ml Output Total 751 ml Balance -622 ml Result Diagram: 07/24/17 0450 07/24/17 0450 Other Results Microbiology Date/Time Source Procedure Growth Status 07/22/17 09:28 Nasal Washing Influenza Types A,B Antigen (LEO) - Final NEGATIVE FOR FLU A AND B ANTIGEN.... Complete Imaging Last 24 hours Impressions Chest X-Ray 07/24/17599 Signed Impressions: Service Date/Time: Monday, July 24, 2017 03:41 - CONCLUSION: Patchy diffuse interstitial prominence and pulmonary vascular prominence unchanged. Ankur Shields MD Last Impressions Chest X-Ray 07/23/17599 Signed Impressions: Service Date/Time: Sunday, July 23, 2017 04:10 - CONCLUSION: Lungs grossly clear. Tubes and catheter in good position. Ankur Shields MD Neck Magnetic Resonance Angiography 07/21/17 0000 Signed Impressions: Service Date/Time: Friday, July 21, 2017 08:40 - CONCLUSION: No acute neck arteriovascular abnormality is identified. There is no significant stenosis within either internal carotid artery. Lonnie Ross MD Head Magnetic Resonance Angiography 07/21/17 0000 Signed Impressions: Service Date/Time: Friday, July 21, 2017 08:40 - CONCLUSION: No acute intracranial vascular abnormality is identified. Lonnie Ross MD Brain MRI 07/21/17 0000 Signed Impressions: Service Date/Time: Friday, July 21, 2017 08:40 - CONCLUSION: Multifocal areas of restricted diffusion/recent ischemia within the centrum semiovale bilaterally, bilateral occipital lobes, bilateral basal ganglia, bilateral temporal lobes, and bilateral cerebellar hemispheres. Findings could be related to global anoxic event or less likely embolic phenomenon. Lonnie Ross MD Abdomen Ultrasound 07/21/17 Signed Impressions: Service Date/Time: Friday, July 21, 2017 15:47 - CONCLUSION: Cholelithiasis. No gallbladder wall thickening or pericholecystic fluid. Victor Manuel Barros MD Head CT 07/20/175 Signed Impressions: Service Date/Time: Friday, July 21, 2017 00:53 - CONCLUSION: Abnormal brain appearance. Recommend MRI for further evaluation Lonnie Lock MD Objective Remarks GENERAL: Middle-aged gentleman, intubated and sedated, ill-appearing. SKIN: Warm and dry. Multiple tattoos bilateral upper extremities and thorax. HEAD: Atraumatic. Normocephalic. EYES: Pupils are equal and reactive. No scleral icterus. No injection or drainage. ENT: No nasal bleeding or discharge. Mucous membranes pink and moist. Orally intubated. NECK: Trachea midline. Neck veins not distended. CARDIOVASCULAR: Regular heart sounds. No murmurs, rubs or gallops appreciated. RESPIRATORY: Scattered coarse breath sounds appreciated bilaterally. No wheezes , good air entry bilateral. GASTROINTESTINAL: Abdomen soft, non-tender, not distended. Bowel sounds are present. No hepatomegaly or splenomegaly appreciated. MUSCULOSKELETAL: Extremities without significant peripheral edema. No obvious deformities. NEUROLOGICAL: Patient is sedated and intubated. Pupils are equal and reactive. Patient does not follow commands and does not open eyes to voice stimuli. He grimaces and withdraws to pain. 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 Continue to hold propofol. Followed by neurology. Continue aspirin daily. Holding trazodone 100 mg at night/home medication for depression/anxiety CT brain 07/21 There is patchy mild diminished attenuation in centrum semi-ovale bilaterally. There is mild heterogeneous diminished density in the genu region of internal capsules and globus pallidus bilaterally. There is vague diminished density in the cerebellar hemispheres bilaterally. There is no evidence of intracranial mass or hemorrhage. There is no abnormal extra-axial fluid accumulation or shift present. 07/21 MRI brain-Multifocal areas of restricted diffusion/recent ischemia within the centrum semiovale bilaterally, bilateral occipital lobes, bilateral basal ganglia, bilateral temporal lobes, and bilateral cerebellar hemispheres. Findings could be related to global anoxic event or less likely embolic phenomenon. 07/21 EEG revealed no epileptic activity 07/21-MRA brain/neck -no acute findings UDS + opiates, amphetamines, benzodiazepines, THC and cocaine CV: History of essential hypertension Hyperlipidemia Lactic acidosis -resolved Holding valsartan 320 mg p.o. daily due to hypotension/acute kidney injury Holding rosuvastatin 10 mg p.o. q. Sunday/Sunday/Sunday due to elevated LFTs. Resume when clinically indicated. Continue amlodipine. TTE results reviewed, LV size normal, EF of 55%. Resp: Acute hypoxemic respiratory failure secondary to altered mental status Tobacco use disorder [facility] 16/550/03/23/39. Currently on CPAP 10/21, tolerating it well Ventilator bundle Albuterol/ipratropium aerosols every 6 hours with albuterol aerosol every 2 hours as needed dyspnea Add budesonide 0.5/2 1 inhalation twice daily since on budesonide/formoterol 160 /4.5 1 puff twice daily at home along with albuterol inhaler twice daily GI: Elevated transaminases -slowly trending down Rhabdomyolysis -improving, urine output is adequate, CPK trending down Cholelithiasis Trend CK levels-5000->55413->20K --> 5930 07/21 Liver ultrasound revealed cholelithiasis Hepatitis panel-negative Start tube feeding with Neutra hep goal 45 cc an hour Lansoprazole for GI prophylaxis Docusate/senna 1 tablet twice daily for bowel regimen : Garner catheter has been placed for accurate I's and O's in a critically ill patient Endo: Sliding scale insulin with NovoLog with Accu-Cheks every 6 hours to maintain euglycemia/low regimen Hemoglobin A1c documented at 6.1 Renal: Acute kidney injury -resolved Rhabdomyolysis -improving LR at 125cc/hr Monitor urine output Accurate I's and O's Renal ultrasound revealed no hydronephrosis bilaterally 5/5 Urine eosinophils negative. Avoid nephrotoxic drugs Trend CPK Heme: Normocytic anemia Monitor CBC daily. Follow trend SQ Heparin initiated per Dr. Hernandez ID: Received piperacillin/tazobactam and clindamycin ED for possible aspiration Empiric antibiotics-piperacillin/tazobactam, azithromycin and vancomycin day #3 Antibiotics stopped on 07/23 Blood cultures 2, UA, sputum /5 all pending/no growth to date Strep pneumo, Legionella urine antigens-negative Influenza a and B ordered. Results pending FEN: Hypophosphatemia -resolved Electrolyte protocol MSK: History of multiple lumbar/cervical spine surgeries PT evaluate and treat Access -Utilize peripheral IV. Central line if indicated Prophylaxis -GI -lansoprazole -DVT -SCD/ Heparin SQ Level 2 follow-up Celestine Johnson MD July 24, 2017 09:14
[2017-07-24] MEDS: LANSOPRAZOLE SOLUTAB 30 MG TAB G-TUBE SCH (09:17)
[2017-07-24] MEDS: SODIUM CHLORIDE 0.9% FLUSH 10 ML FLUSH IV FLUSH SCH ×2 (09:17→19:56)
--- NOTE | 2017-07-24 11:32 | HHI.HCPN ---
Reason for visit a. To assist with evaluation and management of symptoms including: pain; encephalopathy; dyspnea b. To assist medical decision maker(s) with: better understanding of current medical conditions; weighing benefits/burdens of medical treatment options; making medical treatment decisions. . Subjective/Interval History Mr. Castillo remains, sedated, intubated, mechanically ventilated in the MICU. He intermittently stirs but does not awaken to voice / exam at time of my visit. Nursing reports that off sedation he became more wakeful and was able to follow some simple commands overnight. He is unable to localize, quantify, or qualify symptoms. He became agitated off sedation and subsequently was placed back on sedation. Sedation is once again being slowly weaned at this time. Patient has been tolerating CPAP for several hours so far this AM. Patient has developed some gross hematuria. Heparin and aspirin are on hold. Hemoglobin is actually up from 10.9 to 11.6 this AM. Calcium improving. LFTs improving. CK improving. . Family/friend interactions Son is at bedside as well as patient's administration professional from the boat. The administration professional says the patient has been doing physically so much better since his last surgery last September. He says the patient is able to go up and down stair on the boat. He gets SOB, but does not seem in pain. The deck and hull assembler is aware of the urine drug test results. He tells me that the Captain is quite strict and he has never see him use anything on board except an occasional prescribed pain pill which he has needed much less of since last surgery. 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 There is no getting off the boat during their 30 day runs. They are all subject to random drug testing. 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 . Advance Directives Living Will: Copy in medical record Health Care Surrogate: Copy in medical record Durable Power of Lasting Machine Operator Bed: Completed, but not made available Advance Directive Specifics Date completed: Living will and healthcare surrogate designation were completed on 09/29/2016. . Health Care Surrogate(s): The healthcare surrogate is the patient's spouse--Cotymaddy Weaver . Documented care wishes: The patient's living will is the standard [place] living will. He has initialed only one condition to activate his wishes -- if he has "an end-stage condition." He would not want life prolonging procedures should be diagnosed with such condition. . Objective Vital Signs Date Time Temp Pulse Resp B/P (MAP) Pulse Ox O2 Delivery O2 Flow Rate FiO2 07/24/17 07:53 40 07/24/17 07:53 95 40 07/24/17 06:00 56 07/24/17 04:39 92 40 07/24/17 04:00 40 07/24/17 04:00 98.3 51 22 105/55 (72) 92 07/24/17 04:00 51 07/24/17 02:00 60 07/24/17 00:00 40 07/24/17 00:00 98.3 52 19 160/85 (110) 99 07/24/17 00:00 52 07/23/17 23:54 99 40 07/23/17 22:00 53 07/23/17 20:42 97 40 07/23/17 20:00 54 07/23/17 20:00 97.3 54 21 152/87 (108) 98 07/23/17 20:00 40 07/23/17 18:00 57 07/23/17 16:33 98.9 61 23 164/83 (110) 93 07/23/17 16:00 60 07/23/17 16:00 40 07/23/17 15:51 97 40 07/23/17 14:00 54 07/23/17 12:00 98.9 57 22 122/69 (86) 96 07/23/17 12:00 60 07/23/17 12:00 40 07/23/17 11:27 98 40 Intake & Output 07/24/17 07/24/17 07:00 19:00 Intake Total 389 ml Output Total 751 ml Balance -362 ml IV Total 260 ml Tube Feeding 129 ml Output Urine Total 750 ml Stool Total 1 ml # Bowel Movements 1 . Physical Exam CONSTITUTIONAL/GENERAL: This is an adequately nourished patient, sedated, mechanically ventilated, minimally responsive, in a medical intensive care unit bed. TUBES/LINES/DRAINS: Orotracheal tube; orogastric tube; SCDs; Garner catheter; peripheral IVs SKIN: Multiple tattoos. No jaundice, rashes, or lesions. No wounds seen anteriorly. Skin temperature appropriate. Not diaphoretic. EYES: Pupils equal and round. Cannot evaluate extraocular movements. No scleral icterus. No injection or drainage. Fundi not examined. ENT: Unable to assess hearing.. Nose without bleeding or purulent drainage. Throat without visible erythema, exudates, masses, or lesions --though difficult to fully evaluate due to intubations. NECK: Trachea midline. CARDIOVASCULAR: Regular rate and rhythm without murmurs, gallops, or rubs. No JVD. RESPIRATORY/CHEST: Symmetric, unlabored respirations. Breath sounds equal bilaterally. Scattered ronchi. No wheezes. Rare cough. GASTROINTESTINAL: Abdomen soft, non-tender, slighlty distended. No hepato- splenomegaly, or palpable masses. No guarding. Bowel sounds present. GENITOURINARY: Without palpable bladder distension. Garner catheter in place. No penile/scrotal edema. MUSCULOSKELETAL: Extremities without clubbing, cyanosis. Mild edema in hands. LYMPHATICS: Not examined. NEUROLOGICAL: Sedated. Stirs but does not awaken to loud voice and exam. Will withdraw to noxious stimulus in all extremities. PSYCHIATRIC: Unable to evaluate due to level of responsiveness. . Diagnostic Tests Laboratory Laboratory Tests Test 07/21/17 14:51 07/21/17 15:50 07/21/17 16:10 07/21/17 20:24 Erythrocyte Sedimentation Rate 13 mm/hr (0-20) Ammonia 24 MCMOL/L (11-32) Total Creatine Kinase 09758 U/L (39-308) Creatine Kinase MB 195.6 NG/ML (0.5-3.6) Creatine Kinase MB % 0.7 % (0.0-4.0) Total Protein 5.6 GM/DL (6.0-7.6) Vitamin B12 Level 574 PG/ML (193-986) Folate 19.6 NG/ML (3.1-17.5) Free Thyroxine 0.81 NG/DL (0.76-1.46) Thyroid Stimulating Hormone 3rd Gen 0.915 uIU/ML (0.358-3.740) Rheumatoid Factor Screen NEGATIVE (NEGATIVE) Rheumatoid Factor Titer IU/ML (0.0-14.9) Anti-Nuclear Antibody Screen NEG (NEG) Rapid Plasma Reagin NON-REACTIVE (NON-REACTVE) Blood Gas Puncture Site LT RADIAL LT RADIAL Blood Gas Patient Temperature 98.6 98.6 Blood Gas HCO3 26 mmol/L (22-26) 25 mmol/L (22-26) Blood Gas Base Excess 1.2 mmol/L (-2-2) 0.9 mmol/L (-2-2) Blood Gas Oxygen Saturation 93 % (90-100) 93 % (90-100) Arterial Blood pH 7.36 (7.380-7.420) 7.40 (7.380-7.420) Arterial Blood Partial Pressure CO2 48 mmHg (38-42) 42 mmHg (38-42) Arterial Blood Partial Pressure O2 82 mmHg (61-120) 80 mmHg (61-120) Arterial Blood Oxygen Content 16.1 Vol % (12.0-20.0) 16.0 Vol % (12.0-20.0) Arterial Blood Carboxyhemoglobin 0.6 % (0-4) 0.5 % (0-4) Arterial Blood Methemoglobin 1.9 % (0-2) 1.9 % (0-2) Blood Gas Hemoglobin 12.3 G/DL (12.0-16.0) 12.2 G/DL (12.0-16.0) Oxygen Delivery Device VENTILATOR VENTILATOR Blood Gas Ventilator Setting PRVC/AC PRVC/AC Blood Gas Inspired Oxygen 40 % 40 % Lactic Acid Level 1.1 mmol/L (0.4-2.0) Test 07/22/17 04:05 07/22/17 05:10 07/23/17 03:27 07/24/17 04:50 White Blood Count 10.0 TH/MM3 (4.0-11.0) 9.5 TH/MM3 (4.0-11.0) 10.8 TH/MM3 (4.0-11.0) Red Blood Count 3.76 MIL/MM3 (4.50-5.90) 3.42 MIL/MM3 (4.50-5.90) 3.65 MIL/MM3 (4.50-5.90) Hemoglobin 11.9 GM/DL (13.0-17.0) 10.9 GM/DL (13.0-17.0) 11.6 GM/DL (13.0-17.0) Hematocrit 35.3 % (39.0-51.0) 31.8 % (39.0-51.0) 34.0 % (39.0-51.0) Mean Corpuscular Volume 94.1 FL (80.0-100.0) 93.1 FL (80.0-100.0) 93.2 FL (80.0-100.0) Mean Corpuscular Hemoglobin 31.6 PG (27.0-34.0) 31.8 PG (27.0-34.0) 31.9 PG (27.0-34.0) Mean Corpuscular Hemoglobin Concent 33.5 % (32.0-36.0) 34.2 % (32.0-36.0) 34.2 % (32.0-36.0) Red Cell Distribution Width 13.9 % (11.6-17.2) 13.8 % (11.6-17.2) 13.6 % (11.6-17.2) Platelet Count 219 TH/MM3 (150-450) 209 TH/MM3 (150-450) 230 TH/MM3 (150-450) Mean Platelet Volume 8.3 FL (7.0-11.0) 8.3 FL (7.0-11.0) 8.3 FL (7.0-11.0) Neutrophils (%) (Auto) 73.1 % (16.0-70.0) 67.9 % (16.0-70.0) 82.6 % (16.0-70.0) Lymphocytes (%) (Auto) 13.8 % (9.0-44.0) 17.4 % (9.0-44.0) 9.5 % (9.0-44.0) Monocytes (%) (Auto) 11.5 % (0.0-8.0) 10.1 % (0.0-8.0) 6.6 % (0.0-8.0) Eosinophils (%) (Auto) 1.2 % (0.0-4.0) 4.0 % (0.0-4.0) 1.1 % (0.0-4.0) Basophils (%) (Auto) 0.4 % (0.0-2.0) 0.6 % (0.0-2.0) 0.2 % (0.0-2.0) Neutrophils # (Auto) 7.3 TH/MM3 (1.8-7.7) 6.4 TH/MM3 (1.8-7.7) 8.9 TH/MM3 (1.8-7.7) Lymphocytes # (Auto) 1.4 TH/MM3 (1.0-4.8) 1.7 TH/MM3 (1.0-4.8) 1.0 TH/MM3 (1.0-4.8) Monocytes # (Auto) 1.2 TH/MM3 (0-0.9) 1.0 TH/MM3 (0-0.9) 0.7 TH/MM3 (0-0.9) Eosinophils # (Auto) 0.1 TH/MM3 (0-0.4) 0.4 TH/MM3 (0-0.4) 0.1 TH/MM3 (0-0.4) Basophils # (Auto) 0.0 TH/MM3 (0-0.2) 0.1 TH/MM3 (0-0.2) 0.0 TH/MM3 (0-0.2) CBC Comment DIFF FINAL DIFF FINAL DIFF FINAL Differential Comment Blood Urea Nitrogen 16 MG/DL (7-18) 10 MG/DL (7-18) 9 MG/DL (7-18) Creatinine 0.91 MG/DL (0.60-1.30) 0.78 MG/DL (0.60-1.30) 0.70 MG/DL (0.60-1.30) Random Glucose 91 MG/DL (74-106) 143 MG/DL (74-106) 123 MG/DL (74-106) Total Protein 5.4 GM/DL (6.4-8.2) 5.1 GM/DL (6.4-8.2) 5.4 GM/DL (6.4-8.2) Albumin 2.6 GM/DL (3.4-5.0) 2.2 GM/DL (3.4-5.0) 2.1 GM/DL (3.4-5.0) Calcium Level 7.3 MG/DL (8.5-10.1) 7.1 MG/DL (8.5-10.1) 7.7 MG/DL (8.5-10.1) Phosphorus Level 1.7 MG/DL (2.5-4.9) 1.2 MG/DL (2.5-4.9) 2.8 MG/DL (2.5-4.9) Magnesium Level 2.4 MG/DL (1.5-2.5) 2.2 MG/DL (1.5-2.5) 2.3 MG/DL (1.5-2.5) Alkaline Phosphatase 80 U/L (45-117) 74 U/L (45-117) 78 U/L (45-117) Aspartate Amino Transf (AST/SGOT) 574 U/L (15-37) 336 U/L (15-37) 252 U/L (15-37) Alanine Aminotransferase (ALT/SGPT) 185 U/L (12-78) 141 U/L (12-78) 128 U/L (12-78) Total Bilirubin 0.3 MG/DL (0.2-1.0) 0.4 MG/DL (0.2-1.0) 0.3 MG/DL (0.2-1.0) Sodium Level 145 MEQ/L (136-145) 142 MEQ/L (136-145) 142 MEQ/L (136-145) Potassium Level 3.7 MEQ/L (3.5-5.1) 3.5 MEQ/L (3.5-5.1) 3.9 MEQ/L (3.5-5.1) Chloride Level 109 MEQ/L (98-107) 107 MEQ/L (98-107) 108 MEQ/L (98-107) Carbon Dioxide Level 27.0 MEQ/L (21.0-32.0) 28.3 MEQ/L (21.0-32.0) 27.1 MEQ/L (21.0-32.0) Anion Gap 9 MEQ/L (5-15) 7 MEQ/L (5-15) 7 MEQ/L (5-15) Estimat Glomerular Filtration Rate 84 ML/MIN (>89) 100 ML/MIN (>89) 113 ML/MIN (>89) Hemoglobin A1c 5.6 % (4.3-6.0) 5.5 % (4.3-6.0) Protein Corrected Calcium 8.2 MG/DL (8.5-10.1) 8.2 MG/DL (8.5-10.1) Total Creatine Kinase 85233 U/L (39-308) 5930 U/L (39-308) Creatine Kinase MB 120.4 NG/ML (0.5-3.6) 14.0 NG/ML (0.5-3.6) Creatine Kinase MB % 0.6 % (0.0-4.0) 0.2 % (0.0-4.0) Blood Gas Puncture Site RT RADIAL Blood Gas Patient Temperature 98.6 Blood Gas HCO3 25 mmol/L (22-26) Blood Gas Base Excess 0.6 mmol/L (-2-2) Blood Gas Oxygen Saturation 94 % (90-100) Arterial Blood pH 7.42 (7.380-7.420) Arterial Blood Partial Pressure CO2 39 mmHg (38-42) Arterial Blood Partial Pressure O2 83 mmHg (61-120) Arterial Blood Oxygen Content 15.1 Vol % (12.0-20.0) Arterial Blood Carboxyhemoglobin 0.5 % (0-4) Arterial Blood Methemoglobin 1.9 % (0-2) Blood Gas Hemoglobin 11.4 G/DL (12.0-16.0) Oxygen Delivery Device VENTILATOR Blood Gas Ventilator Setting PRVC/AC Blood Gas Inspired Oxygen 40 % Triglycerides Level 94 MG/DL (42-150) Cholesterol Level 120 MG/DL (120-200) LDL Cholesterol 59 MG/DL (0-99) HDL Cholesterol 42.4 MG/DL (40.0-60.0) Cholesterol/HDL Ratio 2.83 RATIO Thyroid Stimulating Hormone 3rd Gen 1.370 uIU/ML (0.358-3.740) Random Cortisol 10.6 MCG/DL . Result Diagram: 07/24/17 0450 07/24/17 0450 Microbiology Microbiology Date/Time Source Procedure Growth Status 07/22/17 09:28 Nasal Washing Influenza Types A,B Antigen (LEO) - Final NEGATIVE FOR FLU A AND B ANTIGEN.... Complete Imaging Last Impressions Chest X-Ray 07/24/17 0600 Signed Impressions: Service Date/Time: Monday, July 24, 2017 03:41 - CONCLUSION: Patchy diffuse interstitial prominence and pulmonary vascular prominence unchanged. Ankur Shields MD Neck Magnetic Resonance Angiography 07/21/17 0000 Signed Impressions: Service Date/Time: Friday, July 21, 2017 08:40 - CONCLUSION: No acute neck arteriovascular abnormality is identified. There is no significant stenosis within either internal carotid artery. Lonnie Ross MD Head Magnetic Resonance Angiography 07/21/17 0000 Signed Impressions: Service Date/Time: Friday, July 21, 2017 08:40 - CONCLUSION: No acute intracranial vascular abnormality is identified. Lonnie Ross MD Brain MRI 07/21/17 0000 Signed Impressions: Service Date/Time: Friday, July 21, 2017 08:40 - CONCLUSION: Multifocal areas of restricted diffusion/recent ischemia within the centrum semiovale bilaterally, bilateral occipital lobes, bilateral basal ganglia, bilateral temporal lobes, and bilateral cerebellar hemispheres. Findings could be related to global anoxic event or less likely embolic phenomenon. Lonnie Ross MD Abdomen Ultrasound 07/21/17 Signed Impressions: Service Date/Time: Friday, July 21, 2017 15:47 - CONCLUSION: Cholelithiasis. No gallbladder wall thickening or pericholecystic fluid. Victor Manuel Barros MD Head CT 07/20/17 2225 Signed Impressions: Service Date/Time: Friday, July 21, 2017 00:53 - CONCLUSION: Abnormal brain appearance. Recommend MRI for further evaluation Lonnie Lock MD . Procedures * Intubation/mechanical ventilation . Assessment and Plan Disease Oriented Problem List: (1) Stroke (2) Acute respiratory failure (3) Failed back syndrome (4) COPD (chronic obstructive pulmonary disease) (5) Hyperkalemia (6) Acute kidney injury (7) Rhabdomyolysis (8) Tobacco abuse disorder (9) Chronic, continuous use of opioids (10) Depression (11) Hypertension (12) Hyperlipidemia Symptom Scale: (1) Pain 0-10 Scale: Unable to quantify Comment: Patient has long history of chronic pain from his back for which he has undergone multiple surgeries. Has been on chronic opioids for many years. Additional sources of pain might now also include prolonged bedbound status; Garner catheter; vascular access catheters; restraints; orotracheal intubation; orogastric intubation. (2) Encephalopathy 0-10 Scale: Unable to quantify Comment: Encephalopathy may be multifactorial. It appears he has had multiple strokes, and acute kidney injury, and electrolyte abnormalities all of which which are likely contributing to encephalopathy. . . (3) Dyspnea 0-10 Scale: Unable to quantify Comment: Currently managed with mechanical ventilation. . Pertinent Non-Medical Issues Psychosocial: Patient is well supported locally by his spouse. He has a biological son who lives in [place], [place], but who is here now. Spiritual: Catholic and spirituality have not played an important role in his life. Legal: Patient has a living will and designation of healthcare surrogate currently scanned into our electronic medical record. His is his surrogate. Ethical issues impacting care: Patient is currently incapacitated to make his own healthcare decisions. It is unclear if/when he will regain capacity to do so. . Important Contacts * Coty Weaver (spouse and health care surrogate) [phone] and [phone] * Blake Castillo (son) [phone] . Prognosis The cause of the patient's current encephalopathy remains uncertain. Hypoxic injury, stroke, drug effect, and metabolic issues all remain in the differential. It remains difficult to prognosticate the likely degree of neurological improvement. The sooner we are able to see neurologic improvement and the more rapid the recovery, the more hopeful we will be. To what extent the patient also has a significant substance abuse problem that may be impacting recovery and prognosis is unknown at this time. . Code Status: Full Code Plan == CODE STATUS : FULL CODE == Patient is currently incapacitated to make his own healthcare decisions. == Decision Making: His spouse--Coty Weaver --is his designated healthcare surrogate. == Goals of medical treatment: Currently, the goals are quite appropriately aggressive including full resuscitation. Goals may understandably change as we become better able to prognosticate neurologic outcome. == Symptoms (see symptom descriptions above): * Pain: The challenge is trying to keep this patient comfortable while minimizing sedation to better assess neurologic status. Current orders for analgesics appear adequate at this time. It is hard to know patient's opiate needs as it is unclear how much opiates he was using on a regular basis. It can be assumed that because of chronic opioid use, his opioid needs would be higher than average. We can also assume that he is at high risk of opioid withdrawal should we try and down taper opioids. Agree with current fentanyl regimen. No further recommendations at this time. * Dyspnea: Patient is a long-term smoker and now unable to protect his airway. Dyspnea is currently being managed by mechanical ventilation. Tolerating CPAP. Anticipate we will be able to extubate when patient becomes more alert. No further recommendations at this time. * Agitation: Agitation is probably from a multifactorial delirium. Patient has orders for dexmedetomidine. Currently trying to wean sedation while minimizing agitation which has been challenging. No further recommendations at this time. * Encephalopathy multifactorial.: We will continue to address the fixable contributors such as metabolic issues and possible infection. Also, as any psychoactive drugs clear, we anticipate improvement. His ability to follow commands intermittently is a good prognostic sign. == Patient's spouse would like to have the patient's community physician have access to pertinent records. I have spoke with hospital medical records and I have forms for spouse to complete in order to enable this to happen. == Spouse and son are very interested in details of care and appreciate being kept up to date. Son at bedside reports that he has well updated this AM. == Palliative care will continue to follow to assist with symptom management and to further clarify goals of medical treatment as the clinical course evolves. . Attestation To help prompt me to consider important information that might be impacting today's encounter and assessment, information from prior notes written by myself or my colleagues may have been "brought forward" into today's note. My signature on this note, however, is an attestation that I personally performed the exam, history, and/or decision-making noted today, and, unless otherwise indicated, the interactions with patient, family, and staff as well as the review of records all occurred today. I also attest that the listed assessment and stated plan reflect my best clinical judgment today based on the combination of historical information, prior notes, and today's exam/ interactions. When time spent is documented, it refers only to time spent today by the signer, or if indicated, combined time spent today by collaborating physician/nurse practitioner. . Paco Plata MD July 24, 2017 11:32
[2017-07-24] MEDS: amLODIPine BESYLATE 5 MG TAB PO SCH (19:56)
[2017-07-24] MEDS ORDERED: fentaNYL DRIP 250 ML IV PRN (20:45)
[2017-07-24] MEDS ORDERED: ACETAMINOPHEN 650 MG/20.3 ML UDC PO PRN (20:45)
[2017-07-24] MEDS: fentaNYL DRIP 250 ML IV PRN (20:59)
[2017-07-24 21:25] LABS: ALB/GLOB RATIO (SPE) 1.75 (1.39-2.23)
[2017-07-25] VITALS (19 sets, daily range): BP systolic 101–206; BP diastolic 57–89; PULSE 48–81; RESP 17–27; TEMP 97.7–98.7; O2SAT 96–100
[2017-07-25] MEDS: AZITHROMYCIN INJ 500 MG in SODIUM CHLOR 0.9% 250 ML INJ 250 ML IV SCH (01:43)
[2017-07-25] MEDS: LACTATED RINGER'S 1000 ML INJ 1,000 ML IV SCH (03:10)
[2017-07-25] MEDS: CHLORHEXIDINE GLUCONATE 2 % 1 PACK (2 CLOTHS) TOP SCH (04:00)
[2017-07-25] MEDS: RESP: ALBUTEROL 2.5 MG/IPRATROPIUM 0.5 MG NEB (SCH) INH (04:19)
[2017-07-25] MEDS: INSULIN ASPART SUPPLEMENTAL SCALE SQ SCH ×4 (06:00→18:00)
[2017-07-25 06:06] LABS: ALBUMIN 2.2 GM/DL (3.4-5.0); AST (GOT) 158 U/L (15-37); BICARBONATE 26.6 MEQ/L (21.0-32.0); BLOOD UREA NITROGEN 9 MG/DL (7-18); CALCIUM 8.2 MG/DL (8.5-10.1); CHLORIDE 107 MEQ/L (98-107); CREATININE 0.68 MG/DL (0.60-1.30); GLOMERULAR FILTRATION RATE 117 ML/MIN (>89); GLUCOSE,RANDOM 131 MG/DL (74-106); MAGNESIUM 2.3 MG/DL (1.5-2.5); SODIUM (NA) 143 MEQ/L (136-145)
[2017-07-25 06:08] LABS: ALT (GPT) 119 U/L (12-78); PHOSPHORUS 3.4 MG/DL (2.5-4.9)
[2017-07-25 06:09] LABS: AUTOMATED NEUTROPHIL # 8.1 TH/MM3 (1.8-7.7); BASOPHIL % 0.4 % (0.0-2.0); EOSINOPHIL # 0.5 TH/MM3 (0-0.4); EOSINOPHIL % 4.6 % (0.0-4.0); HEMATOCRIT 34.8 % (39.0-51.0); HEMOGLOBIN 11.6 GM/DL (13.0-17.0); LYMPH % 13.7 % (9.0-44.0); LYMPHOCYTE # 1.5 TH/MM3 (1.0-4.8); MEAN CELL VOLUME 93.4 FL (80.0-100.0); MEAN CORPUSCULAR HGB CONC 33.2 % (32.0-36.0); MEAN PLATELET VOLUME 8.2 FL (7.0-11.0); MONO % 9.3 % (0.0-8.0); PLATELET COUNT 288 TH/MM3 (150-450); RED BLOOD COUNT 3.73 MIL/MM3 (4.50-5.90); RED CELL DISTRIBUTION WIDTH 13.7 % (11.6-17.2); WHITE BLOOD COUNT 11.3 TH/MM3 (4.0-11.0)
[2017-07-25 06:21] LABS: ALKALINE PHOSPHATASE 87 U/L (45-117); TOTAL BILIRUBIN ADULT 0.3 MG/DL (0.2-1.0); TOTAL PROTEIN 5.8 GM/DL (6.4-8.2)
[2017-07-25] MEDS ORDERED: DEXMEDETOMIDINE INJ 1,000 MCG in SODIUM CHLOR 0.9% 250 ML INJ 240 ML IV PRN (08:00)
[2017-07-25] MEDS: RESP: BUDESONIDE 0.5 MG/2 ML NEB NEB SCH ×2 (08:00→20:38)
[2017-07-25] MEDS: CHLORHEXIDINE 0.12% (ORAL KIT) 15 ML CUP MT SCH ×2 (08:00→22:23)
[2017-07-25] MEDS ORDERED: fentaNYL DRIP 250 ML IV PRN ×2 (08:00→12:45)
--- NOTE | 2017-07-25 08:01 | HHI.PR ---
Objective Vital Signs Date Time Temp Pulse Resp B/P (MAP) Pulse Ox O2 Delivery O2 Flow Rate FiO2 07/25/17 06:00 56 07/25/17 04:19 98 40 07/25/17 04:00 40 07/25/17 04:00 52 07/25/17 04:00 97.9 49 21 131/67 (88) 98 07/25/17 02:00 50 07/25/17 00:00 48 07/25/17 00:00 98.7 48 17 101/57 (72) 96 07/25/17 00:00 40 07/24/17 23:50 96 40 07/24/17 22:00 60 07/24/17 21:18 94 40 07/24/17 20:35 96 40 07/24/17 20:00 100.7 61 22 122/73 (89) 98 07/24/17 20:00 61 07/24/17 20:00 40 07/24/17 18:00 64 07/24/17 16:38 96 40 07/24/17 16:00 40 07/24/17 16:00 100.4 67 24 146/74 (98) 96 07/24/17 16:00 67 07/24/17 14:00 65 07/24/17 13:31 40 07/24/17 12:00 99.9 57 23 144/72 (96) 95 07/24/17 12:00 57 07/24/17 11:56 96 40 07/24/17 10:00 55 07/24/17 10:00 40 I/O 07/24/17 07/24/17 07/24/17 07/25/17 07/25/17 07/25/17 07:00 15:00 23:00 07:00 15:00 23:00 Intake Total 639 ml 240 ml 1426 ml 1439.3 ml Output Total 751 ml 1600 ml 700 ml Balance -112 ml 240 ml -174 ml 739.3 ml IV Total 510 ml 240 ml 1100 ml 939.3 ml Tube Feeding 129 ml 206 ml 500 ml Tube Irrigant 120 ml Output Urine Total 750 ml 1600 ml 700 ml Stool Total 1 ml 0 ml # Bowel Movements 1 0 0 Result Diagram: 07/25/17 0455 07/25/17 0455 Objective Remarks on vent on sedatives pupil= unresponsive no change Assessment and Plan Assessment and Plan imp nurse tells me following commands wigled bilat feet yest off sedatives!! echo andlabs and eeg neg should do well neurowise Judd Castillo MD July 25, 2017 08:01
[2017-07-25] MEDS ORDERED: LORazepam 2 MG/ML VIAL ONE (08:20)
[2017-07-25] MEDS: LANSOPRAZOLE SOLUTAB 30 MG TAB G-TUBE SCH (08:30)
--- NOTE | 2017-07-25 08:45 | HHI.CCPN ---
Subjective Remarks/Hospital Course This is a 66-year-old male. Date of admission 07/20/2017. Past medical history includes hypertension, hyperlipidemia, COPD with ongoing tobacco abuse, peptic ulcer disease and anxiety. He also has history of lumbar stenosis, degenerative joint disease of the back and cervical spine. He presents to [facility] with the following history. 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 According to his at bedside, patient is drug tested. Patient returned home from work on Sunday after his 30 day work schedule. Patient was changing the tire of a bike friend yesterday. Patient returned home in no acute distress. Today, patient was tired and was sleeping all day. Initially patient had similar symptoms at lunch. When the attempted to wake him up later this evening patient be was nonresponsive with a weak pulse. She attempted to use ammonia without response. At that time EMS was called and patient was transferred to [facility]. Patient was noted to be an acute change with a creatinine of 3.8. Baseline is normal. Potassium is 7.4 without EKG changes. Patient received bicarbonate, insulin/D50, calcium and Kayexalate in the ED. Repeat potassium 3 hours. Patient is making urine and appears concentrated. UA is pending. Patient leukocytosis 13,000. CPK was 5000. Lactic acid was 2.6. Urine drug screen revealed positive for opiates, amphetamines, benzodiazepines, THC and cocaine. Head CT is currently pending. Due to altered mental status patient was admitted after receiving 20 mg etomidate and 100 mg succinylcholine by ED physician. Patient also received 4 mg of midazolam and after which patient became hypotensive is currently receiving 3 L normal saline wide open. Head CT is currently pending. Patient received clindamycin along with piperacillin/ tazobactam in the ED. 07/21: Overnight the patient required to protamine infusion low-dose currently being weaned off. The patient continues on fentanyl and propofol infusion for ventilator synchrony. Patient's undergoing MRI evaluation results pending. The patient was noted to have significant elevation in creatinine kinase the patient is bolused 1 L IV fluids increase in normal saline 200 cc/hr. Lactic acid downtrending will continue to trend creatinine noted to be decreasing. 07/22: Currently afebrile. Off all vasopressors. We will switch to LR at 200 cc an hour. Recheck BMP this afternoon. Moving all 4 x-rays spontaneously right upper extremity less. Opens eyes but not following commands. Positive gag and corneal reflex. Subjective: 07/23: Currently on dexmedetomidine drip at 0.7 mg/kg/h. Minimal response to distinguish. Will hold at the present time and reassess neurological condition. EEG showed no epileptiform activity. Tolerating tube feeding. No bowel movement since admission. Currently afebrile. 07/24: Per nursing staff patient was off sedation over the night and he woke up and followed some simple commands, but due to agitation, hypertension and tachycardia patient was restarted on sedation. He is currently on Precedex at 1 , tolerating CPAP, sedated. T-max of 99. I/O 3029/1451. 07/25: No events over the night. This morning while attempting CPAP trial patient became rigid, unresponsive, with gaze deviation, tachypneic tachycardic and hypertensive, suggesting seizure activity. Patient was immediately given Ativan 2 mg 1 with resolution of episode. Neurology was contacted and plan for EEG and CT head as well as propofol infusion. No family present at bedside. T-max of 100.7 over the night. Urine output 2300 mL's over the last 24 hours. Objective Vital Signs Date Time Temp Pulse Resp B/P (MAP) Pulse Ox O2 Delivery O2 Flow Rate FiO2 07/25/17 06:00 56 07/25/17 04:19 98 40 07/25/17 04:00 97.9 21 131/67 (88) Intake and Output 07/25/17 07/25/17 07/26/17 08:00 16:00 00:00 Intake Total 1263.3 ml 19 ml Output Total 700 ml Balance 563.3 ml 19 ml Result Diagram: 07/25/17 0455 07/25/17 0455 Other Results Microbiology Date/Time Source Procedure Growth Status 07/22/17 09:28 Nasal Washing Influenza Types A,B Antigen (LEO) - Final NEGATIVE FOR FLU A AND B ANTIGEN.... Complete Imaging Last 24 hours Impressions Chest X-Ray 07/24/17 0600 Signed Impressions: Service Date/Time: Monday, July 24, 2017 03:41 - CONCLUSION: Patchy diffuse interstitial prominence and pulmonary vascular prominence unchanged. Ankur Shields MD Last Impressions Chest X-Ray 07/23/17 0600 Signed Impressions: Service Date/Time: Sunday, July 23, 2017 04:10 - CONCLUSION: Lungs grossly clear. Tubes and catheter in good position. Ankur Shields MD Neck Magnetic Resonance Angiography 07/21/17 0000 Signed Impressions: Service Date/Time: Friday, July 21, 2017 08:40 - CONCLUSION: No acute neck arteriovascular abnormality is identified. There is no significant stenosis within either internal carotid artery. Lonnie Ross MD Head Magnetic Resonance Angiography 07/21/17 0000 Signed Impressions: Service Date/Time: Friday, July 21, 2017 08:40 - CONCLUSION: No acute intracranial vascular abnormality is identified. Lonnie Ross MD Brain MRI 07/21/17 Signed Impressions: Service Date/Time: Friday, July 21, 2017 08:40 - CONCLUSION: Multifocal areas of restricted diffusion/recent ischemia within the centrum semiovale bilaterally, bilateral occipital lobes, bilateral basal ganglia, bilateral temporal lobes, and bilateral cerebellar hemispheres. Findings could be related to global anoxic event or less likely embolic phenomenon. Lonnie Ross MD Abdomen Ultrasound 07/21/17 Signed Impressions: Service Date/Time: Friday, July 21, 2017 15:47 - CONCLUSION: Cholelithiasis. No gallbladder wall thickening or pericholecystic fluid. Victor Manuel Barros MD Head CT 07/20/172224 Signed Impressions: Service Date/Time: Friday, July 21, 2017 00:53 - CONCLUSION: Abnormal brain appearance. Recommend MRI for further evaluation Lonnie Lock MD Objective Remarks General - middle-aged gentleman, intubated, ill-appearing, unresponsive HEENT - pupils equal, dilated, reactive, right-sided gaze deviation, sclerae anicteric, neck supple, no nuchal rigidity, neck veins not distended, no carotid bruit, orally intubated CV - regular S1, S2, no murmurs, tachycardic Chest - scattered coarse breath b/l, good air entry, no wheezes Abdomen - soft, non-tender, non-distended, BS present, no hepatomegaly, no splenomegaly Skin - no rashes, no cyanosis, multiple tattoos bilateral upper extremities and thorax Extremities - warm and well perfused, no edema, + peripheral pulses, no clubbing Neuro - intubated, off sedation, unresponsive, rigid, pupils equal and reactive , dilated, positive gaze deviation A/P Assessment and Plan Neuro/Psych: Toxic metabolic encephalopathy Polysubstance abuse disorder - UDS positive for opiates, benzos, amphetamines, THC and cocaine Depression Anxiety disorder 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 There is mild heterogeneous diminished density in the genu region of internal capsules and globus pallidus bilaterally. There is vague diminished density in the cerebellar hemispheres bilaterally. There is no evidence of intracranial mass or hemorrhage. There is no abnormal extra-axial fluid accumulation or shift present. 07/21 MRI brain-Multifocal areas of restricted diffusion/recent ischemia within the centrum semiovale bilaterally, bilateral occipital lobes, bilateral basal ganglia, bilateral temporal lobes, and bilateral cerebellar hemispheres. Findings could be related to global anoxic event or less likely embolic phenomenon. 07/21 EEG revealed no epileptic activity 07/21-MRA brain/neck -no acute findings UDS + opiates, amphetamines, benzodiazepines, THC and cocaine CV: History of essential hypertension Hyperlipidemia Lactic acidosis -resolved Holding valsartan 320 mg p.o. daily due to hypotension/acute kidney injury Holding rosuvastatin 10 mg p.o. q. Sunday/Sunday/Sunday due to elevated LFTs. Resume when clinically indicated. Continue amlodipine. TTE results reviewed, LV size normal, EF of 55%. Resp: Acute hypoxemic respiratory failure secondary to altered mental status Tobacco use disorder Continue CT VC, tidal volume decreased to 500 due to higher Pip. Currently patient is synchronized with the vent without auto PEEP Ventilator bundle Albuterol/ipratropium aerosols every 6 hours with albuterol aerosol every 2 hours as needed dyspnea Add budesonide 0.5/2 1 inhalation twice daily since on budesonide/formoterol 160 /4.5 1 puff twice daily at home along with albuterol inhaler twice daily GI: Elevated transaminases -slowly trending down Rhabdomyolysis -improving, urine output is adequate, CPK trending down Cholelithiasis Trend CK levels-5000->31007->20K --> 5930 --> 3370 5 Liver ultrasound revealed cholelithiasis Hepatitis panel-negative Start tube feeding with Neutra hep goal 45 cc an hour Lansoprazole for GI prophylaxis Docusate/senna 1 tablet twice daily for bowel regimen : Garner catheter has been placed for accurate I's and O's in a critically ill patient Endo: Sliding scale insulin with NovoLog with Accu-Cheks every 6 hours to maintain euglycemia/low regimen Hemoglobin A1c documented at 6.1 Renal: Acute kidney injury -resolved Rhabdomyolysis -improving Volume overload -patient is more than 10 L positive since admission LR at 125cc/hr Monitor urine output Accurate I's and O's Renal ultrasound revealed no hydronephrosis bilaterally 07/21 Urine eosinophils negative. Avoid nephrotoxic drugs Trend CPK Lasix 401 today Heme: Normocytic anemia Monitor CBC daily. Follow trend SQ Heparin initiated per Dr. Hernandez ID: Received piperacillin/tazobactam and clindamycin ED for possible aspiration Empiric antibiotics-piperacillin/tazobactam, azithromycin and vancomycin day #3 Antibiotics stopped on 07/23 Had episode of fever over the night Send new cultures Blood cultures 2, UA, sputum 07/21 all pending/no growth to date Strep pneumo, Legionella urine antigens-negative Influenza a and B ordered. Results pending FEN: Hypophosphatemia -resolved Electrolyte protocol MSK: History of multiple lumbar/cervical spine surgeries PT evaluate and treat Access -Utilize peripheral IV. Central line if indicated Prophylaxis -GI -lansoprazole -DVT -SCD/ Heparin SQ Level 3 follow-up No family present at bedside. Addendum: MRI brain reviewed, patient with diffuse cerebellar edema and hydrocephalus. Patient was given mannitol, 2% saline infusion, serum osm sent, vent settings readjusted for hyperventilation, head of the bed elevated, and ABG ordered for 2 PM. Stat neurosurgical consult was called - Dr. Barrow, currently at bedside planning to place an EVD. Patient was started on Keppra by neuro, and sedation was achieved with propofol and fentanyl. Pupillary reflex, overbreathing the vent, strong cough. Family was updated throughout by nursing staff. Postprocedure, patient will be transferred to the surgical ICU. Celestine Johnson MD July 25, 2017 08:45
[2017-07-25] MEDS: LACTULOSE SYRUP 20 GM/30 ML CUP PO SCH ×5 (08:47→22:23)
[2017-07-25] MEDS: POLYETHYLENE GLYCOL 17 GM PKG PO SCH ×2 (08:47→22:23)
[2017-07-25] MEDS: ARTIFICIAL TEARS OPTH SOLN 15 ML BTL EACH EYE SCH ×3 (08:47→18:00)
[2017-07-25] MEDS: SODIUM CHLORIDE 0.9% FLUSH 10 ML FLUSH IV FLUSH SCH ×2 (08:47→22:23)
[2017-07-25] MEDS: DOCUSATE SODIUM 50 MG/SENNA 8.6 MG TAB PO SCH ×2 (08:47→22:24)
[2017-07-25] MEDS: ASPIRIN 81 MG CHEW TAB CHEW SCH (08:48)
[2017-07-25] MEDS: REMOVE OLD PATCH T-DERMAL SCH (09:00)
[2017-07-25 09:03] LABS: BILIRUBIN, URINE NEG (NEG); BLOOD, URINE MOD (NEG); GLUCOSE,URINE NEG (NEG); KETONE, URINE NEG (NEG); MUCUS URINE FEW /lpf (OCC); NITRITE,URINE NEG (NEG); PH, URINE 7.5 (5.0-8.5); TRANSITIONAL EPI CELLS, URINE 1 /hpf; URINE COLOR YELLOW (YELLW/STRAW); URINE LEUKOCYTE ESTERASE NEG (NEG)
[2017-07-25] MEDS ORDERED: FUROSEMIDE 40 MG/4 ML VIAL IV PUSH ONE (09:05)
[2017-07-25] MEDS ORDERED: RASS Change Order XX ONE (09:15)
[2017-07-25] MEDS: levETIRAcetam INJ 750 MG in SODIUM CHLORIDE 0.9% INJ 100 ML IV SCH (09:54)
[2017-07-25] MEDS ORDERED: LEVETIRACETAM IV SCH ×2 (10:00→22:00)
[2017-07-25] MEDS: PROPOFOL 1000 MG/100 ML INJ 100 ML IV PRN ×3 (10:15→22:25)
[2017-07-25 10:32] LABS: METHYLMALONIC ACID 0.14 nmol/mL (<=0.40)
[2017-07-25] MEDS ORDERED: GADODIAMIDE PF 287 MG/ML 5 ML VIAL (for RAD MRI) IVCONTRAST ONE (10:59)
--- NOTE | 2017-07-25 11:12 | MG ---
cc: Lilibeth Dupont MD EEG NUMBER [id number]. REFERRING PHYSICIAN: INDICATION: Stat in room 508B with photic done. 2 mg of Ativan given at 8:30 in the morning, half an hour before this EEG was performed. Was tired and sleeping all day. attempted to wake this patient up, was unresponsive, weak pulse. Urine drug screen was positive for opiates, amphetamines, benzos, THC. EEG on 07/21/2017, showed diffuse encephalopathy, no abnormality. History of hypertension, tobacco, COPD, hyperlipidemia, substance abuse. MEDICATIONS: Currently on Zithromax, Apresoline, Norvasc and was given Ativan 30 minutes prior to the study. DESCRIPTION OF RECORD: There is quite a bit of artifact, but overall, there is a 5 Hz background at times seen, other times just 2-3 Hz. There is diffuse slowing, predominantly, there is more of delta frequency than theta. No epileptic activity. Photic stimulation minimal driving response. IMPRESSION: Abnormal EEG due to moderate slowing of background consistent with encephalopathic process. No epileptiform features. Lilibeth Dupont MD DF/TL , 10:52 AM , 11:12 AM
--- NOTE | 2017-07-25 11:36 | RADRPT ---
EXAM DATE/TIME: 07/25/2017 10:37 [facility] COMPARISON: MRI BRAIN W/O CONTRAST, July 21, 2017, 8:40. INDICATIONS : Seizures. CONTRAST: 15 cc Omniscan (gadodiamide) IV MEDICAL HISTORY : Hypertension. Diabetes mellitus type 2. SURGICAL HISTORY : Fusion, cervical. Discectomy, lumbar. Colon resection. Shoulder surgery. ENCOUNTER: Subsequent ACUITY: 4-6 days PAIN SCORE: Nonresponsive. LOCATION: head. TECHNIQUE: Multiplanar, multisequence MRI of the brain was performed both prior to and following the administrat ion of paramagnetic contrast. FINDINGS: There has been interval significant worsening in signal change within the cerebellar hemispheres with T2 prolongation now occupying virtually the entire cerebellar hemispheric parenchymal bilaterally, s paring the vermilion tissue. Appears to be significant associated edema and effacement of the aqueduc t and cisterns. There is developing hydrocephalus and transependymal fluid migration in the periventr icular tissues. Patchy areas of altered signal elsewhere are minimally changed, including the basal ganglia bilateral ly and the occipital polar regions. The susceptibility weighted sequence reveals increasing hemosiderin signal in the cerebellar hemisphe res. There is no abnormal parenchymal contrast enhancement identified. CONCLUSION: Worsening brain appearance with developing hydrocephalus which is presumably related to increasing ed gretta in the posterior fossa. See above discussion. Lonnie Lock MD on July 25, 2017 at 11:26 Board Certified Radiologist. This report was verified electronically.
[2017-07-25] MEDS: NICOTINE 14 MG/24 HR PATCH T-DERMAL SCH (11:46)
[2017-07-25] MEDS: POTASSIUM CHLOR 20 MEQ PREMIX 100 ML IV SCH ×2 (11:46→14:00)
[2017-07-25] MEDS ORDERED: MANNITOL INJ 500 ML IV ONE (12:15)
[2017-07-25] MEDS ORDERED: methylPREDNISolone SO SUCC INJ 1,000 MG in DEXTROSE 5% IN WATER 100ML INJ 100 ML IV STA ×2 (12:33)
--- NOTE | 2017-07-25 12:36 | HM ---
Date Performed: 07/22/2017 Time Performed: 15:53:00 HOOKUP DATE: 07/22/17 03:53:00 PM Sun ANALYSIS START TIME: 07/22/2017 3:58:00 PM ANALYSIS END TIME: 07/23/2017 4:01:59 PM PATIENT AGE: 66 PATIENT HEIGHT: 70 PATIENT WEIGHT: 184 DRUG LIST: ACUTE RENAL FAILURE PATIENT DIAGNOSIS: ROOM 508B TEST NARRATIVE: The patient's average heart rate was 66 BPM. Heart rates greater than 120 B PM were noted 1% of the time. No episodes of bradycardia were noted. No pauses exceeding 2.0 sec onds were noted. 70 ventricular ectopics, which represented < 1% of the total beat count, were no jihan. The highest ventricular ectopic frequency occurred from 07:00 PM to 08:00 PM Sun. During this time 60 VE(s) occurred. Ventricular ectopics were observed as 37 isolated beat(s), as 5 couplet(s) a nd as 4 run(s). 15 supraventricular ectopics, which represented < 1% of the total beat count, wer e noted. The highest supraventricular ectopic frequency occurred from 05:00 PM to 06:00 PM Sun. Dur ing this time 9 SVE(s) occurred. No episodes of ST depression (defined as -1.0 mm or more) were n oted in channel 1. No episodes of ST depression (defined as -1.0 mm or more) were noted in channel 2 . No episodes of ST depression (defined as -1.0 mm or more) were noted in channel 3. no diary mainta ined TEST INTERPRETATION: Sinus rhythm OCCASIONAL PREMATURE VENTRICULAR CONTRACTIONS IN SINGLETS AND COUPLETS RARE PREMATURE ATRIAL COMPLEX ES Signed by : Ankur Lo
[2017-07-25] MEDS: SODIUM CHLORIDE 23.4% INJ 188 MEQ in SODIUM CHLOR 0.9% 1000 ML INJ 1,000 ML IV SCH ×2 (13:06→14:02)
--- NOTE | 2017-07-25 13:51 | PD.OP ---
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 Following continuation of Diprivan and fentanyl drips with the oxygen saturation and hemodynamic monitoring in the intensive care unit , the right frontal region was shaved and the prep with chlor prep and sterilely draped. Using landmarks of 11 cm behind the nasion and 3 cm to the right of the midline, a 1 cm scalp incision was made after infiltrating with 1% lidocaine with epinephrine solution. With a handheld drill a twist drill hole was made in the underlying dura penetrated with a blunt probe. The bactiseal ventriculostomy catheter was then passed into the lateral ventricle at a depth of 7 cm clear CSF encountered with an opening pressure around 28 cm H20. After drainage of CSF the pressures were down to 10 cm H20. The distal end of the ventriculostomy was then tunneled under the scalp with a trocar and secured to the exit site with a 3-0 nylon thigh and connected to a drainage bag. Scalp incision site was approximated with 3-0 nylon interrupted stitches A sterile dressing was applied. There were no complications and blood loss was less than 5 cc. Hossein Barrow MD July 25, 2017 13:51
--- NOTE | 2017-07-25 16:36 | PD.PROCEDR ---
Procedure Note Procedure Diagnosis: Acute stroke, cerebral edema Operation: Insertion left subclavian central venous line Procedure: Timeout performed, patient properly identified. Ventriculostomy drain temporarily clamped. Left chest prepped and draped left subclavian vein cannulated using a thin-walled needle and wire easily advanced into the central circulation. Dilator passed over the wire followed by the triple-lumen central venous catheter passed over the wire to 19 cm. 3 lm aspirated and flushed. Sterile dressing applied. Chest x-ray ordered will review. Manuel Rose MD July 25, 2017 16:36
--- NOTE | 2017-07-25 17:11 | RADRPT ---
EXAM DATE/TIME: 07/25/2017 16:35 [facility] COMPARISON: CHEST SINGLE AP, July 24, 2017, 3:41. INDICATIONS : Status post left sided central line placement. Evaluate for CVL position. MEDICAL HISTORY : Hypertension. Diabetes mellitus type II. SURGICAL HISTORY : Colon resection. Fusion, cervical. ENCOUNTER: Initial ACUITY: 1 day PAIN SCORE: Non-responsive. LOCATION: Left chest FINDINGS: Stable ETT and NGT coursing of the GE junction with submitted from the image. Left subclavian central line with tip in the mid SVC. No significant pneumothorax. Progression of airspace disease in the le ft lower lung zone with diffuse interstitial prominence. Cardiomediastinal contours are stable. Remai nder of the exam is unchanged. CONCLUSION: 1. Left subclavian central line in the mid SVC without pneumothorax. 2. Worsening left lower lung zone airspace disease. Sanchez Canada MD on July 25, 2017 at 17:08 Board Certified Radiologist. This report was verified electronically.
--- NOTE | 2017-07-25 17:24 | PD.CONS ---
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 Diagnoses: History of Present Illness 66-year-old obese gentleman who was admitted to [facility] intensive medical unit after presenting to the emergency room 5 days ago found unresponsive at home by . He was intubated and has been on ventilator support since his admission. Workup initially with CT and MRI scan of the brain revealed multifocal areas of infarct involving the bilateral supratentorial hemispheres as well as cerebellar hemispheres consistent with either embolic strokes or anoxia or hypoxia. His toxicology screen was positive for multiple drugs and polysubstance abuse including cocaine, cannabinoids, barbiturates, and opioids. He had a change in his neurologic status with posturing noted today and MRI scan obtained revealed progression of the bilateral cerebellar hemispheres strokes with obstruction of the fourth ventricle and associated hydrocephalus development. Neurosurgery was consulted for the hydrocephalus by the valance cutter. Review of Systems ROS Limitations: Intubated, Unresponsive Past Family Social History Allergies: Coded Allergies: No Known Allergies (Verified Allergy, Unknown, 07/20/17) Past Medical History hypertension, hyperlipidemia, COPD with ongoing tobacco abuse, peptic ulcer disease, anxiey, lumbar stenosis, degenerative joint disease of the back and cervical spine. Reported Medications Symbicort Inh (Budesonide/Formoterol Fumarate) 160-4.5 Mcg/Act Aero 2 Puff INH Q12HR Trazodone (Trazodone HCl) 100 Mg Tablet 100 Mg PO HS PRN Ventolin Hfa 18 GM Inh (Albuterol Sulfate) 90 Mcg/Act Aer 2 Puff INH BID PRN Crestor (Rosuvastatin Calcium) 10 Mg Tab 10 Mg PO MO,WE,FR Valsartan 320 Mg Tab 320 Mg PO HS Amlodipine (Amlodipine Besylate) 5 Mg Tab 5 Mg PO HS Active Ordered Medications Current Medications Medications (Trade) Dose Ordered Sig/Claudia Route PRN Reason Start Time Stop Time Status Last Admin Dose Admin Sodium Chloride (NS Flush) 2 ml UNSCH PRN IV FLUSH FLUSH AFTER USING IV ACCESS 07/21/17 00:00 Sodium Chloride (NS Flush) 2 ml BID IV FLUSH 07/21/17 09:00 07/25/17 08:47 Lansoprazole (Prevacid Odt) 30 mg DAILY G-TUBE 07/21/17 09:00 07/25/17 08:30 Artificial Tears (Tears Naturale Opth Soln) 1 drop TID EACH EYE 07/21/17 09:00 07/25/17 08:47 Ondansetron HCl (Zofran Inj) 4 mg Q6H PRN IV PUSH NAUSEA OR VOMITING 07/21/17 00:00 Albuterol Sulfate (Albuterol Neb) 2.5 mg Q2HR NEB PRN INH SOB/WHEEZING 07/21/17 00:00 07/21/17 00:17 Miscellaneous Information ([facility] Nursing Information) 1 Q361D XX 07/21/17 00:00 07/21/17 00:00 Chlorhexidine Gluconate (Chlorhexidine 2% Cloth) 3 pack Taper DAILY@04 TOP 07/21/17 04:00 07/17/18 03:59 07/25/17 04:00 Chlorhexidine Gluconate (Chlorhexidine 2% Cloth) 3 pack UNSCH PRN TOP HYGIENIC CARE 07/21/17 00:00 Senna/Docusate Sodium (Dilia-Colace) 1 tab BID PO 07/21/17 09:00 07/25/17 08:47 Magnesium Hydroxide (Milk Of Magnesia Liq) 30 ml Q12H PRN PO Mild constipation 07/21/17 00:00 Sennosides (Senokot) 17.2 mg Q12H PRN PO Moderate constipation 07/21/17 00:00 Bisacodyl (Dulcolax Supp) 10 mg DAILY PRN RECTAL SEVERE CONSITIPATION 07/21/17 00:00 Lactulose (Lactulose Liq) 30 ml DAILY PRN PO SEVERE CONSITIPATION 07/21/17 00:00 Chlorhexidine Gluconate (Peridex 0.12% Liq) 15 ml BID@08,20 MT 07/21/17 08:00 07/25/17 08:00 Dextrose (D50w (Vial) Inj) 50 ml UNSCH PRN IV PUSH HYPOGLYCEMIA-SEE COMMENTS 07/21/17 00:00 Glucagon (Glucagon Inj) 1 mg UNSCH PRN OTHER HYPOGLYCEMIA-SEE COMMENTS 07/21/17 00:00 Insulin Aspart (NovoLOG SUPPLEMENTAL SCALE) 1 Q6HR SQ 07/21/17 00:00 07/23/17 00:00 Budesonide (Pulmicort Respule Neb) 0.5 mg Q12HR NEB NEB 07/21/17 08:00 07/25/17 08:00 Terbutaline Sulfate (Brethine Inj) 1 mg UNSCH PRN SQ For Extravasation 07/21/17 00:30 Azithromycin 500 mg/Sodium Chloride 250 ml @ 250 mls/hr Q24H IV 07/21/17 01:00 07/28/17 00:59 07/25/17 01:43 Amlodipine Besylate (Norvasc) 5 mg HS PO 07/22/17 21:00 07/24/17 19:56 Lactulose (Lactulose Liq) 30 ml DAILY PO 07/22/17 09:00 07/25/17 08:47 Hydralazine HCl (Apresoline Inj) 10 mg Q1H PRN IV PUSH SBP> OR = 180, DBP> OR = 100 07/22/17 09:45 07/24/17 19:51 Nitroglycerin (Nitroglycerin 2% Oint) 2 inch Q6H PRN TOPICAL SBP> OR = 180, DBP> OR = 100 07/22/17 09:45 Clevidipine 50 ml @ 2 mls/hr TITRATE PRN IV Blood Pressure Management 07/22/17 19:15 Polyethylene Glycol (Miralax) 17 gm BID PO 07/23/17 21:00 07/25/17 08:47 Lactulose (Lactulose Liq) 30 ml QID PO 07/23/17 18:00 Dexmedetomidine HCl 1000 mcg/ Sodium Chloride 250 ml @ 4.62 mls/hr TITRATE PRN IV SEDATION 07/25/17 08:00 Nicotine (Habitrol 14 Mg Patch.24 Hr) 1 patch DAILY T-DERMAL 07/25/17 09:00 07/25/17 11:46 Miscellaneous Information 1 DAILY T-DERMAL 07/25/17 09:00 Levetriacetam 750 mg/Sodium Chloride 107.5 ml @ 420 mls/hr Q12H IV 07/25/17 10:00 07/25/17 09:54 Sodium Chloride 188 meq/Sodium Chloride 1,047 ml @ 30 mls/hr Q24H IV 07/25/17 12:15 07/25/17 14:02 Propofol 100 ml @ 3.102 mls/ hr TITRATE PRN IV SEDATION 07/25/17 12:45 Fentanyl Citrate 250 ml @ 5 mls/hr TITRATE PRN IV SEDATION 07/25/17 12:45 Social History He is . No history of alcohol use although obviously does abuse illicit drugs including cocaine and cannabinoids with positive toxicology screen. Physical Exam Vital Signs Vital Signs Date Time Temp Pulse Resp B/P (MAP) Pulse Ox O2 Delivery O2 Flow Rate FiO2 07/25/17 15:12 99 07/25/17 14:00 62 07/25/17 12:00 40 07/25/17 12:00 81 07/25/17 12:00 98.7 78 27 160/77 (104) 96 07/25/17 11:18 96 40 07/25/17 11:17 100 100 07/25/17 10:00 81 07/25/17 08:38 97 40 07/25/17 08:00 40 07/25/17 08:00 77 07/25/17 08:00 40 07/25/17 08:00 98.6 77 25 206/89 (128) 98 07/25/17 06:00 56 07/25/17 04:19 98 40 07/25/17 04:00 40 07/25/17 04:00 52 07/25/17 04:00 97.9 49 21 131/67 (88) 98 07/25/17 02:00 50 07/25/17 00:00 48 07/25/17 00:00 98.7 48 17 101/57 (72) 96 07/25/17 00:00 40 07/24/17 23:50 96 40 07/24/17 22:00 60 07/24/17 21:18 94 40 07/24/17 20:35 96 40 07/24/17 20:00 100.7 61 22 122/73 (89) 98 07/24/17 20:00 61 07/24/17 20:00 40 07/24/17 18:00 64 Physical Exam GENERAL: This is a well-nourished, well-developed patient who is intubated on ventilator support. SKIN: No rashes, ecchymoses or lesions. Cool and dry. HEAD: Atraumatic. Normocephalic. No temporal or scalp tenderness. EYES: Pupils equal round and reactive. Extraocular motions intact. No scleral icterus. No injection or drainage. ENT: Nose without bleeding, purulent drainage or septal hematoma. Oral endotracheal tube in place. NECK: Trachea midline. No JVD or lymphadenopathy. Supple. CARDIOVASCULAR: Regular rate and rhythm without murmurs, gallops, or rubs. RESPIRATORY: Clear to auscultation. Breath sounds equal bilaterally. No wheezes , rales, or rhonchi. GASTROINTESTINAL: Abdomen soft, non-tender, nondistended. No hepato-splenomegaly , or palpable masses. No guarding. MUSCULOSKELETAL: Extremities without clubbing, cyanosis. Positive edema. NEUROLOGICAL: Does not open his eyes to painful stimulation. Pupils are small and sluggish with positive corneal cough and gag reflex. Does not follow commands or move spontaneously and decerebrate posturing to painful stimulation. Tyler Coma Score 4. Laboratory Laboratory Tests Test 07/25/17 04:55 07/25/17 07:50 07/25/17 13:00 07/25/17 14:34 White Blood Count 11.3 Red Blood Count 3.73 Hemoglobin 11.6 Hematocrit 34.8 Mean Corpuscular Volume 93.4 Mean Corpuscular Hemoglobin 31.0 Mean Corpuscular Hemoglobin Concent 33.2 Red Cell Distribution Width 13.7 Platelet Count 288 Mean Platelet Volume 8.2 Neutrophils (%) (Auto) 72.0 Lymphocytes (%) (Auto) 13.7 Monocytes (%) (Auto) 9.3 Eosinophils (%) (Auto) 4.6 Basophils (%) (Auto) 0.4 Neutrophils # (Auto) 8.1 Lymphocytes # (Auto) 1.5 Monocytes # (Auto) 1.0 Eosinophils # (Auto) 0.5 Basophils # (Auto) 0.0 CBC Comment DIFF FINAL Differential Comment Blood Urea Nitrogen 9 Creatinine 0.68 Random Glucose 131 Total Protein 5.8 Albumin 2.2 Calcium Level 8.2 Phosphorus Level 3.4 Magnesium Level 2.3 Alkaline Phosphatase 87 Aspartate Amino Transf (AST/SGOT) 158 Alanine Aminotransferase (ALT/SGPT) 119 Total Bilirubin 0.3 Sodium Level 143 Potassium Level 3.5 Chloride Level 107 Carbon Dioxide Level 26.6 Anion Gap 9 Estimat Glomerular Filtration Rate 117 Total Creatine Kinase 3370 Creatine Kinase MB 7.2 Creatine Kinase MB % 0.2 Urine Color YELLOW Urine Turbidity CLEAR Urine pH 7.5 Urine Specific [place] 1.017 Urine Protein TRACE Urine Glucose (UA) NEG Urine Ketones NEG Urine Occult Blood MOD Urine Nitrite NEG Urine Bilirubin NEG Urine Urobilinogen 4.0 Urine Leukocyte Esterase NEG Urine RBC Urine WBC 1 Urine Transitional Epithelial Cells 1 Urine Mucus FEW Microscopic Urinalysis Comment CATH-CULT NOT IND Serum Osmolality 292 Blood Gas Puncture Site RT RADIAL Blood Gas Patient Temperature 98.6 Blood Gas HCO3 27 Blood Gas Base Excess 2.1 Blood Gas Oxygen Saturation 92 Arterial Blood pH 7.38 Arterial Blood Partial Pressure CO2 46 Arterial Blood Partial Pressure O2 76 Arterial Blood Oxygen Content 12.1 Arterial Blood Carboxyhemoglobin 0.7 Arterial Blood Methemoglobin 1.6 Blood Gas Hemoglobin 9.3 Oxygen Delivery Device VENT Blood Gas Ventilator Setting PRVC22/500/1.0/+5 Blood Gas Inspired Oxygen 40 Date/Time Source Procedure Growth Status 07/25/17 08:17 Blood Peripheral Aerobic Blood Culture Pending Received 07/25/17 08:17 Blood Peripheral Anaerobic Blood Culture Pending Received 07/25/17 07:45 Sputum Endotracheal Gram Stain - Final Resulted 07/25/17 07:45 Sputum Endotracheal Sputum Culture Pending Resulted 07/20/17 22:50 Urine Catheterized Urine Legionella Antigen - Final PRESUMPTIVE NEGATIVE FOR LEGIONELLA P... Complete 07/20/17 22:50 Urine Catheterized Urine Streptococcus pneumoniae Antigen (M - Final PRESUMPTIVE NEGATIVE FOR STREPTOCOCCU... Complete Result Diagram: 07/25/17 0455 07/25/17 0455 Imaging Last Impressions Brain MRI 07/25/17 0000 Signed Impressions: Service Date/Time: Tuesday, July 25, 2017 10:37 - CONCLUSION: Worsening brain appearance with developing hydrocephalus which is presumably related to increasing edema in the posterior fossa. See above discussion. Lonnie Lock MD Chest X-Ray 07/24/17 0600 Signed Impressions: Service Date/Time: Monday, July 24, 2017 03:41 - CONCLUSION: Patchy diffuse interstitial prominence and pulmonary vascular prominence unchanged. Ankur Shields MD Neck Magnetic Resonance Angiography 07/21/17 0000 Signed Impressions: Service Date/Time: Friday, July 21, 2017 08:40 - CONCLUSION: No acute neck arteriovascular abnormality is identified. There is no significant stenosis within either internal carotid artery. Lonnie Ross MD Head Magnetic Resonance Angiography 07/21/17 0000 Signed Impressions: Service Date/Time: Friday, July 21, 2017 08:40 - CONCLUSION: No acute intracranial vascular abnormality is identified. Lonnie Ross MD Abdomen Ultrasound 07/21/17 0000 Signed Impressions: Service Date/Time: Friday, July 21, 2017 15:47 - CONCLUSION: Cholelithiasis. No gallbladder wall thickening or pericholecystic fluid. Victor Manuel Barros MD Head CT 07/20/17 2225 Signed Impressions: Service Date/Time: Friday, July 21, 2017 00:53 - CONCLUSION: Abnormal brain appearance. Recommend MRI for further evaluation Lonnie Lock MD Assessment and Plan Assessment and Plan 66-year-old gentleman with multifocal infarcts involving both hemispheres supratentorially as well as bilateral cerebellar hemispheres with worsening edema and obstructive hydrocephalus. His neurologic examination is very poor. Discussed with over the phone and recommended an emergent ventriculostomy placement to treat the obstructive hydrocephalus. If there is noted improvement subsequently and the option of possible suboccipital craniectomy for decompression could be considered if the family chooses to continue with the aggressive management although this would be a heroic procedure. The at this point consents to ventriculostomy placement and this was witnessed by the nursing staff. Discussed with valance cutter. Hossein Barrow MD July 25, 2017 17:24
[2017-07-25] MEDS: SODIUM CHLOR 0.9% 1000 ML INJ 1,000 ML IV SCH (18:11)
--- NOTE | 2017-07-25 18:59 | HHI.HCPN ---
Reason for visit a. To assist with evaluation and management of symptoms including: pain; encephalopathy; dyspnea b. To assist medical decision maker(s) with: better understanding of current medical conditions; weighing benefits/burdens of medical treatment options; making medical treatment decisions. . Subjective/Interval History This AM, during a CPAP trial, patient had episode of stiffening/rigidity; gaze deviation; tacypnea; tachycardia; and hypertension. There was concern for seizure. He was given lorazepam. EEG showed evidence of encepahlopathy but no seizure. MRI of the brain showed significant worsening with obstructive hydrocephalus with increasing edema. Neurosurgery was consulted. The patient underwent emergent ventriculostomy placement. He was transferred to the SICU. Neurosurgeon comments that that "His neurologic examination is very poor." was contacted when initial MRI results were back and was also contacted by neurosurgery to get consent for ventriculostomy placement. Goals continue to be aggressive. . Family/friend interactions No family at bedside. . Advance Directives Living Will: Copy in medical record Health Care Surrogate: Copy in medical record Durable Power of Classified Ad Taker: Completed, but not made available Advance Directive Specifics Date completed: Living will and healthcare surrogate designation were completed on 09/29/2016. . Health Care Surrogate(s): The healthcare surrogate is the patient's spouse--Coty Weaver . Documented care wishes: The patient's living will is the standard [place] living will. He has initialed only one condition to activate his wishes -- if he has "an end-stage condition." He would not want life prolonging procedures should be diagnosed with such condition. . Objective Vital Signs Date Time Temp Pulse Resp B/P (MAP) Pulse Ox O2 Delivery O2 Flow Rate FiO2 07/25/17 17:24 96 40 07/25/17 15:12 99 07/25/17 14:00 62 07/25/17 12:00 40 07/25/17 12:00 81 07/25/17 12:00 98.7 78 27 160/77 (104) 96 07/25/17 11:18 96 40 07/25/17 11:17 100 100 07/25/17 10:00 81 07/25/17 08:38 97 40 07/25/17 08:00 40 07/25/17 08:00 77 07/25/17 08:00 40 07/25/17 08:00 98.6 77 25 206/89 (128) 98 07/25/17 06:00 56 07/25/17 04:19 98 40 07/25/17 04:00 40 07/25/17 04:00 52 07/25/17 04:00 97.9 49 21 131/67 (88) 98 07/25/17 02:00 50 07/25/17 00:00 48 07/25/17 00:00 98.7 48 17 101/57 (72) 96 07/25/17 00:00 40 07/24/17 23:50 96 40 07/24/17 22:00 60 07/24/17 21:18 94 40 07/24/17 20:35 96 40 07/24/17 20:00 100.7 61 22 122/73 (89) 98 07/24/17 20:00 61 07/24/17 20:00 40 Intake & Output 07/25/17 07/25/17 07:00 19:00 Intake Total 1591.3 ml 1251 ml Output Total 700 ml Balance 891.3 ml 1251 ml IV Total 1091.3 ml 1251 ml Tube Feeding 500 ml Output Urine Total 700 ml Stool Total 0 ml # Bowel Movements 0 . Physical Exam Pt was examined by me prior to his surgery... CONSTITUTIONAL/GENERAL: This is an adequately nourished patient, sedated, mechanically ventilated, in a medical intensive care unit bed. Unresponsive. TUBES/LINES/DRAINS: Orotracheal tube; orogastric tube; SCDs; Garner catheter; peripheral IVs SKIN: Multiple tattoos. No jaundice, rashes, or lesions. No wounds seen anteriorly. Skin temperature appropriate. Not diaphoretic. EYES: Pupils equal and round. Cannot evaluate extraocular movements. No scleral icterus. No injection or drainage. Fundi not examined. ENT: Unable to assess hearing.. Nose without bleeding or purulent drainage. Throat without visible erythema, exudates, masses, or lesions --though difficult to fully evaluate due to intubations. NECK: Trachea midline. CARDIOVASCULAR: Regular rate and rhythm without murmurs, gallops, or rubs. No JVD. RESPIRATORY/CHEST: Symmetric, unlabored respirations. Breath sounds equal bilaterally. Scattered faint ronchi. No wheezes. GASTROINTESTINAL: Abdomen soft, non-tender, slightly distended. No hepato- splenomegaly, or palpable masses. No guarding. Bowel sounds present. GENITOURINARY: Without palpable bladder distension. Garner catheter in place. MUSCULOSKELETAL: Extremities without clubbing, cyanosis. Mild edema in hands. LYMPHATICS: Not examined. NEUROLOGICAL: Sedated. Unresponsive. PSYCHIATRIC: Unable to evaluate due to level of responsiveness. . Diagnostic Tests Laboratory Laboratory Tests Test 07/23/17 03:27 07/24/17 04:50 07/25/17 04:55 07/25/17 07:50 White Blood Count 9.5 TH/MM3 (4.0-11.0) 10.8 TH/MM3 (4.0-11.0) 11.3 TH/MM3 (4.0-11.0) Red Blood Count 3.42 MIL/MM3 (4.50-5.90) 3.65 MIL/MM3 (4.50-5.90) 3.73 MIL/MM3 (4.50-5.90) Hemoglobin 10.9 GM/DL (13.0-17.0) 11.6 GM/DL (13.0-17.0) 11.6 GM/DL (13.0-17.0) Hematocrit 31.8 % (39.0-51.0) 34.0 % (39.0-51.0) 34.8 % (39.0-51.0) Mean Corpuscular Volume 93.1 FL (80.0-100.0) 93.2 FL (80.0-100.0) 93.4 FL (80.0-100.0) Mean Corpuscular Hemoglobin 31.8 PG (27.0-34.0) 31.9 PG (27.0-34.0) 31.0 PG (27.0-34.0) Mean Corpuscular Hemoglobin Concent 34.2 % (32.0-36.0) 34.2 % (32.0-36.0) 33.2 % (32.0-36.0) Red Cell Distribution Width 13.8 % (11.6-17.2) 13.6 % (11.6-17.2) 13.7 % (11.6-17.2) Platelet Count 209 TH/MM3 (150-450) 230 TH/MM3 (150-450) 288 TH/MM3 (150-450) Mean Platelet Volume 8.3 FL (7.0-11.0) 8.3 FL (7.0-11.0) 8.2 FL (7.0-11.0) Neutrophils (%) (Auto) 67.9 % (16.0-70.0) 82.6 % (16.0-70.0) 72.0 % (16.0-70.0) Lymphocytes (%) (Auto) 17.4 % (9.0-44.0) 9.5 % (9.0-44.0) 13.7 % (9.0-44.0) Monocytes (%) (Auto) 10.1 % (0.0-8.0) 6.6 % (0.0-8.0) 9.3 % (0.0-8.0) Eosinophils (%) (Auto) 4.0 % (0.0-4.0) 1.1 % (0.0-4.0) 4.6 % (0.0-4.0) Basophils (%) (Auto) 0.6 % (0.0-2.0) 0.2 % (0.0-2.0) 0.4 % (0.0-2.0) Neutrophils # (Auto) 6.4 TH/MM3 (1.8-7.7) 8.9 TH/MM3 (1.8-7.7) 8.1 TH/MM3 (1.8-7.7) Lymphocytes # (Auto) 1.7 TH/MM3 (1.0-4.8) 1.0 TH/MM3 (1.0-4.8) 1.5 TH/MM3 (1.0-4.8) Monocytes # (Auto) 1.0 TH/MM3 (0-0.9) 0.7 TH/MM3 (0-0.9) 1.0 TH/MM3 (0-0.9) Eosinophils # (Auto) 0.4 TH/MM3 (0-0.4) 0.1 TH/MM3 (0-0.4) 0.5 TH/MM3 (0-0.4) Basophils # (Auto) 0.1 TH/MM3 (0-0.2) 0.0 TH/MM3 (0-0.2) 0.0 TH/MM3 (0-0.2) CBC Comment DIFF FINAL DIFF FINAL DIFF FINAL Differential Comment Blood Urea Nitrogen 10 MG/DL (7-18) 9 MG/DL (7-18) 9 MG/DL (7-18) Creatinine 0.78 MG/DL (0.60-1.30) 0.70 MG/DL (0.60-1.30) 0.68 MG/DL (0.60-1.30) Random Glucose 143 MG/DL (74-106) 123 MG/DL (74-106) 131 MG/DL (74-106) Total Protein 5.1 GM/DL (6.4-8.2) 5.4 GM/DL (6.4-8.2) 5.8 GM/DL (6.4-8.2) Albumin 2.2 GM/DL (3.4-5.0) 2.1 GM/DL (3.4-5.0) 2.2 GM/DL (3.4-5.0) Calcium Level 7.1 MG/DL (8.5-10.1) 7.7 MG/DL (8.5-10.1) 8.2 MG/DL (8.5-10.1) Phosphorus Level 1.2 MG/DL (2.5-4.9) 2.8 MG/DL (2.5-4.9) 3.4 MG/DL (2.5-4.9) Magnesium Level 2.2 MG/DL (1.5-2.5) 2.3 MG/DL (1.5-2.5) 2.3 MG/DL (1.5-2.5) Alkaline Phosphatase 74 U/L (45-117) 78 U/L (45-117) 87 U/L (45-117) Aspartate Amino Transf (AST/SGOT) 336 U/L (15-37) 252 U/L (15-37) 158 U/L (15-37) Alanine Aminotransferase (ALT/SGPT) 141 U/L (12-78) 128 U/L (12-78) 119 U/L (12-78) Total Bilirubin 0.4 MG/DL (0.2-1.0) 0.3 MG/DL (0.2-1.0) 0.3 MG/DL (0.2-1.0) Sodium Level 142 MEQ/L (136-145) 142 MEQ/L (136-145) 143 MEQ/L (136-145) Potassium Level 3.5 MEQ/L (3.5-5.1) 3.9 MEQ/L (3.5-5.1) 3.5 MEQ/L (3.5-5.1) Chloride Level 107 MEQ/L (98-107) 108 MEQ/L (98-107) 107 MEQ/L (98-107) Carbon Dioxide Level 28.3 MEQ/L (21.0-32.0) 27.1 MEQ/L (21.0-32.0) 26.6 MEQ/L (21.0-32.0) Anion Gap 7 MEQ/L (5-15) 7 MEQ/L (5-15) 9 MEQ/L (5-15) Estimat Glomerular Filtration Rate 100 ML/MIN (>89) 113 ML/MIN (>89) 117 ML/MIN (>89) Hemoglobin A1c 5.5 % (4.3-6.0) Protein Corrected Calcium 8.2 MG/DL (8.5-10.1) Triglycerides Level 94 MG/DL (42-150) Cholesterol Level 120 MG/DL (120-200) LDL Cholesterol 59 MG/DL (0-99) HDL Cholesterol 42.4 MG/DL (40.0-60.0) Cholesterol/HDL Ratio 2.83 RATIO Thyroid Stimulating Hormone 3rd Gen 1.370 uIU/ML (0.358-3.740) Random Cortisol 10.6 MCG/DL Total Creatine Kinase 5930 U/L (39-308) 3370 U/L (39-308) Creatine Kinase MB 14.0 NG/ML (0.5-3.6) 7.2 NG/ML (0.5-3.6) Creatine Kinase MB % 0.2 % (0.0-4.0) 0.2 % (0.0-4.0) Urine Color YELLOW (YELLW/STRAW) Urine Turbidity CLEAR (CLEAR) Urine pH 7.5 (5.0-8.5) Urine Specific [place] 1.017 (1.002-1.035) Urine Protein TRACE mg/dL (NEG-TRACE) Urine Glucose (UA) NEG mg/dL (NEG) Urine Ketones NEG mg/dL (NEG) Urine Occult Blood MOD (NEG) Urine Nitrite NEG (NEG) Urine Bilirubin NEG (NEG) Urine Urobilinogen 4.0 MG/DL (LESS THAN Urine Leukocyte Esterase NEG (NEG) Urine RBC /hpf (0-3) Urine WBC 1 /hpf (0-5) Urine Transitional Epithelial Cells 1 /hpf (NONE) Urine Mucus FEW /lpf (OCC) Microscopic Urinalysis Comment CATH-CULT NOT IND Test 07/25/17 13:00 07/25/17 14:34 07/25/17 16:13 Serum Osmolality 292 MOSM/KG (275-295) Blood Gas Puncture Site RT RADIAL Blood Gas Patient Temperature 98.6 Blood Gas HCO3 27 mmol/L (22-26) Blood Gas Base Excess 2.1 mmol/L (-2-2) Blood Gas Oxygen Saturation 92 % (90-100) Arterial Blood pH 7.38 (7.380-7.420) Arterial Blood Partial Pressure CO2 46 mmHg (38-42) Arterial Blood Partial Pressure O2 76 mmHg (61-120) Arterial Blood Oxygen Content 12.1 Vol % (12.0-20.0) Arterial Blood Carboxyhemoglobin 0.7 % (0-4) Arterial Blood Methemoglobin 1.6 % (0-2) Blood Gas Hemoglobin 9.3 G/DL (12.0-16.0) Oxygen Delivery Device VENT Blood Gas Ventilator Setting PRVC22/500/1.0/+5 Blood Gas Inspired Oxygen 40 % Sodium Level 141 MEQ/L (136-145) . Result Diagram: 07/25/17 0455 07/25/17 1613 Microbiology Microbiology Date/Time Source Procedure Growth Status 07/25/17 08:17 Blood Peripheral Aerobic Blood Culture Pending Received 07/25/17 08:17 Blood Peripheral Anaerobic Blood Culture Pending Received 07/25/17 08:04 Blood Peripheral Aerobic Blood Culture Pending Received 07/25/17 08:04 Blood Peripheral Anaerobic Blood Culture Pending Received 07/25/17 07:45 Sputum Endotracheal Gram Stain - Final Resulted 07/25/17 07:45 Sputum Endotracheal Sputum Culture Pending Resulted . Imaging Last Impressions Chest X-Ray 07/25/17 0000 Signed Impressions: Service Date/Time: Tuesday, July 25, 2017 16:35 - CONCLUSION: 1. Left subclavian central line in the mid SVC without pneumothorax. 2. Worsening left lower lung zone airspace disease. Sanchez Canada MD Brain MRI 07/25/17 0000 Signed Impressions: Service Date/Time: Tuesday, July 25, 2017 10:37 - CONCLUSION: Worsening brain appearance with developing hydrocephalus which is presumably related to increasing edema in the posterior fossa. See above discussion. Lonnie Lock MD Neck Magnetic Resonance Angiography 07/21/17 0000 Signed Impressions: Service Date/Time: Friday, July 21, 2017 08:40 - CONCLUSION: No acute neck arteriovascular abnormality is identified. There is no significant stenosis within either internal carotid artery. Lonnie Ross MD Head Magnetic Resonance Angiography 07/21/17 0000 Signed Impressions: Service Date/Time: Friday, July 21, 2017 08:40 - CONCLUSION: No acute intracranial vascular abnormality is identified. Lonnie Ross MD Abdomen Ultrasound 07/21/17 0000 Signed Impressions: Service Date/Time: Friday, July 21, 2017 15:47 - CONCLUSION: Cholelithiasis. No gallbladder wall thickening or pericholecystic fluid. Victor Manuel Barros MD Head CT 07/20/175 Signed Impressions: Service Date/Time: Friday, July 21, 2017 00:53 - CONCLUSION: Abnormal brain appearance. Recommend MRI for further evaluation Lonnie Lock MD . Procedures * Intubation/mechanical ventilation . Assessment and Plan Disease Oriented Problem List: (1) Stroke Comment: Evolving with obstructive hydrocephalus and cerebral edema requiring emergent ventriculostomy placement on 07/25/17 . (2) Acute respiratory failure (3) Seizure Comment: EEG negative on 07/25/17 but transit mechanic felt patient had seizure activity. Would not be surprising given level of cerebral edema. . (4) Failed back syndrome (5) COPD (chronic obstructive pulmonary disease) (6) Hyperkalemia (7) Acute kidney injury (8) Rhabdomyolysis (9) Tobacco abuse disorder (10) Chronic, continuous use of opioids (11) Depression (12) Hypertension (13) Hyperlipidemia Symptom Scale: (1) Pain 0-10 Scale: Unable to quantify Comment: Patient has long history of chronic pain from his back for which he has undergone multiple surgeries. Has been on chronic opioids for many years. Additional sources of pain might now also include cerebral edema; prisca hole placement; prolonged bedbound status; Garner catheter; vascular access catheters ; restraints; orotracheal intubation; orogastric intubation. . (2) Encephalopathy 0-10 Scale: Unable to quantify Comment: Encephalopathy may be multifactorial. It appears he has had multiple strokes, cerebral edema, acute kidney injury, and electrolyte abnormalities all of which which are likely contributing to encephalopathy. . . (3) Dyspnea 0-10 Scale: Unable to quantify Comment: Currently managed with mechanical ventilation. . Pertinent Non-Medical Issues Psychosocial: Patient is well supported locally by his spouse. He has a biological son who lives in [place], [place], but who is here now. Spiritual: Congregational and spirituality have not played an important role in his life. Legal: Patient has a living will and designation of healthcare surrogate currently scanned into our electronic medical record. His is his surrogate. Ethical issues impacting care: Patient is currently incapacitated to make his own healthcare decisions. It is unclear if/when he will regain capacity to do so. . Important Contacts * Coty Weaver (spouse and health care surrogate) [phone] and [phone] * Blake Castillo (son) [phone] . Prognosis The patient's prognosis is now much worse with the obstructive hydrocephalus and cerebral edema requiring emergent ventriculostomy placement. Should he survive the hospitalization, chances of meaningful recovery are much less. . Code Status: Full Code Plan == CODE STATUS : FULL CODE (will need to re-address with spouse considering how the evolution of the stroke and the increased cerebral edema now impact prognosis). == Patient is currently incapacitated to make his own healthcare decisions. It is becoming increasingly unlikely that he will regain capacity to make his own decisions. == Decision Making: His spouse--Coty Weaver --is his designated healthcare surrogate. == Goals of medical treatment: Currently, the goals are quite aggressive including full resuscitation. (will need to re-address with spouse considering how the evolution of the stroke and the increased cerebral edema now impact prognosis). == Symptoms (see symptom descriptions above): * Pain: The challenge is trying to keep this patient comfortable while minimizing sedation to better assess neurologic status. Current orders for analgesics appear adequate at this time. It is hard to know patient's opiate needs as it is unclear how much opiates he was using on a regular basis. It can be assumed that because of chronic opioid use, his opioid needs would be higher than average. We can also assume that he is at high risk of opioid withdrawal should we try and down taper opioids. Agree with current fentanyl regimen. No further recommendations at this time. * Dyspnea: Patient is a long-term smoker and now unable to protect his airway. Dyspnea is currently being managed by mechanical ventilation. Was tolerating CPAP prior to his apparent seizure. Anticipate need for ongoing full vent support and tracheostomy much more likely needed if family would wish aggressive goals. No further recommendations at this time. * Agitation: Agitation is probably from a multifactorial delirium. Patient had been managed with dexmedetomidine. Anticipate agitation the evolving stroke will dampen agitation. * Encephalopathy multifactorial.: We will continue to address the fixable contributors such as metabolic issues and possible infection. Psychoactive drugs present in urine tox screen have probably all cleared by now. Main source of encephalopathy now the stroke and associated edema. == Spouse and son are very interested in details of care and appreciate being kept up to date. == Will attempt to meet with spouse 07/26 and re-visit goals given change in clinical status and patient's living will. == Palliative care will continue to follow to assist with symptom management and to further clarify goals of medical treatment as the clinical course evolves. . Attestation To help prompt me to consider important information that might be impacting today's encounter and assessment, information from prior notes written by myself or my colleagues may have been "brought forward" into today's note. My signature on this note, however, is an attestation that I personally performed the exam, history, and/or decision-making noted today, and, unless otherwise indicated, the interactions with patient, family, and staff as well as the review of records all occurred today. I also attest that the listed assessment and stated plan reflect my best clinical judgment today based on the combination of historical information, prior notes, and today's exam/ interactions. When time spent is documented, it refers only to time spent today by the signer, or if indicated, combined time spent today by collaborating physician/nurse practitioner. Paco Plata MD July 25, 2017 18:59
--- NOTE | 2017-07-25 20:55 | RADRPT ---
EXAM DATE/TIME: 07/25/2017 20:13 [facility] COMPARISON: MRI BRAIN W & W/O CONTRAST, July 25, 2017, 10:37. CT BRAIN W/O CONTRAST, July 21, 2017, 0:53. INDICATIONS : Intracerebral hemorrhage RADIATION DOSE: 56.35 CTDIvol (mGy) MEDICAL HISTORY : Hypertension. Seizures. Diabetes SURGICAL HISTORY : Fusion, cervical. Discectomy, lumbar. Colon resection. Shoulder surgery. ENCOUNTER: Subsequent ACUITY: 3 days PAIN SCALE: Non-responsive LOCATION: cranial TECHNIQUE: Multiple contiguous axial images were obtained of the head. Using automated exposure control and adj ustment of the mA and/or kV according to patient size, radiation dose was kept as low as reasonably a chievable to obtain optimal diagnostic quality images. DICOM format image data is available electro nically for review and comparison. FINDINGS: CEREBRUM: There is a ventriculostomy shunt in place from the right frontal approach with the tip overlying the anterior aspect of the right lateral ventricle extending to the foramen of Lucille region. There is sma ll amount of interventricular air seen following placement of the ventriculostomy tube. There is dila tation of the lateral and third ventricle. The fourth ventricle is narrowed. The cortical sulci are e ffaced. The basal cisterns are effaced. The mass effect appears worse on the current exam. There is l ow-density seen in the cerebral white matter and periventricular regions. There is edema seen in the periphery of the posterior parietal and occipital lobes. There are some low density at the superior r ight parietal region. No areas of hemorrhage are seen. No extra-axial fluid collections are seen. POSTERIOR FOSSA: There is low-density seen throughout the mid and inferior cerebellar hemispheres bilaterally with erika rowing of the fourth ventricle. EXTRACRANIAL: The visualized portion of the orbits is intact. There is ethmoid, sphenoid, maxillary and left fronta l sinus disease. SKULL: The calvaria is intact. No evidence of skull fracture. CONCLUSION: 1. New right frontal ventriculostomy tube in good position. 2. Worsening effacement of basal cisterns and cortical sulci. 3. There is a low density at the periphery of the parietal and occipital lobes concerning for evolvin g infarcts. These were present on the prior MRI. 4. Low-density seen in the mid and inferior cerebellar hemispheres bilaterally with mass effect on th e fourth ventricle. Lonnie Munguia MD on July 25, 2017 at 20:46 Board Certified Radiologist. This report was verified electronically.
[2017-07-25] MEDS: amLODIPine BESYLATE 5 MG TAB PO SCH (21:00)
--- NOTE | 2017-07-25 21:17 | RADRPT ---
EXAM DATE/TIME: 07/25/2017 19:54 COMPARISON: MRI BRAIN W & W/O CONTRAST, July 25, 2017, 10:37. INDICATIONS : Altered mental status. ACUTE RENAL FAILURE CONTRAST: 20 cc Omniscan (gadodiamide) IV MEDICAL HISTORY : Diabetes mellitus type 2. Hypertension. SURGICAL HISTORY : Colon Resection ENCOUNTER: Subsequent ACUITY: 4-6 days PAIN SCORE: Nonresponsive. LOCATION: Brain FINDINGS: The dural sinuses are patent. No venous thrombosis is seen. CONCLUSION: Patent dural sinuses. Lonnie Munguia MD on July 25, 2017 at 21:13 Board Certified Radiologist. This report was verified electronically.
[2017-07-25] MEDS ORDERED: GADODIAMIDE PF 287 MG/ML 20 ML VIAL (for RAD MRI) IVCONTRAST ONE (21:33)
[2017-07-25] MEDS: SODIUM CHLORIDE 0.9% IV SCH (22:23)
[2017-07-25] MEDS: ACYCLOVIR IV SCH (22:23)
[2017-07-25] MEDS: FAMOTIDINE 20 MG TAB PO SCH (22:24)
[2017-07-26] VITALS (16 sets, daily range): BP systolic 101–164; BP diastolic 54–72; PULSE 53–84; RESP 22–24; TEMP 87.4–98.5; O2SAT 93–100
[2017-07-26] MEDS: levETIRAcetam INJ 750 MG in SODIUM CHLORIDE 0.9% INJ 100 ML IV SCH ×3 (00:06→22:20)
[2017-07-26] MEDS: AZITHROMYCIN INJ 500 MG in SODIUM CHLOR 0.9% 250 ML INJ 250 ML IV SCH (00:35)
[2017-07-26] MEDS: PROPOFOL 1000 MG/100 ML INJ 100 ML IV PRN ×6 (00:36→22:19)
[2017-07-26 01:16] LABS: TOTAL PROTEIN,CSF 15.8 MG/DL (15.0-45.0)
[2017-07-26 01:43] LABS: SUPERNATE COLOR TUBE #1 CLEAR (CLEAR); VOLUME TUBE # 1 2.5 ML
[2017-07-26 01:44] LABS: RBC TUBE #1 144 /MM3; WBC TUBE #1 32 /MM3 (0-10)
[2017-07-26 01:58] LABS: CSF HISTIOCYTES 45 %; CSF LYMPHOCYTES 1 %; CSF MONOCYTES 7 %; CSF NEUTROPHILS 47 %
[2017-07-26] MEDS: SODIUM CHLORIDE 0.9% IV SCH ×3 (03:09→19:57)
[2017-07-26] MEDS: ACYCLOVIR IV SCH ×3 (03:09→19:57)
[2017-07-26] MEDS: CHLORHEXIDINE GLUCONATE 2 % 1 PACK (2 CLOTHS) TOP SCH (03:10)
[2017-07-26 04:36] LABS: AUTOMATED NEUTROPHIL # 5.1 TH/MM3 (1.8-7.7); BASOPHIL % 0.2 % (0.0-2.0); HEMATOCRIT 30.8 % (39.0-51.0); HEMOGLOBIN 10.4 GM/DL (13.0-17.0); LYMPH % 11.4 % (9.0-44.0); LYMPHOCYTE # 0.7 TH/MM3 (1.0-4.8); MEAN CELL VOLUME 93.5 FL (80.0-100.0); MEAN CORPUSCULAR HEMOGLOBIN 31.4 PG (27.0-34.0); MEAN CORPUSCULAR HGB CONC 33.6 % (32.0-36.0); MEAN PLATELET VOLUME 7.6 FL (7.0-11.0); MONO % 2.6 % (0.0-8.0); MONOCYTE # 0.2 TH/MM3 (0-0.9); NEUT % 85.8 % (16.0-70.0); PLATELET COUNT 294 TH/MM3 (150-450); RED CELL DISTRIBUTION WIDTH 13.8 % (11.6-17.2); WHITE BLOOD COUNT 5.9 TH/MM3 (4.0-11.0)
--- NOTE | 2017-07-26 05:07 | RADRPT ---
EXAM DATE/TIME: 07/26/2017 03:44 [facility] COMPARISON: CHEST SINGLE AP, July 25, 2017, 16:35. INDICATIONS : Pneumonia. MEDICAL HISTORY : Hypertension. Diabetes mellitus type II. SURGICAL HISTORY : Colon resection. Fusion, cervical ENCOUNTER: Subsequent ACUITY: 2 days PAIN SCORE: Non-responsive. LOCATION: Bilateral chest FINDINGS: A single AP supine portable view of the chest was obtained and demonstrates an endotracheal tube in p lace with the tip 3 cm above the ingrid. A nasogastric tube remains in place. The left subclavian karolina tral venous catheter remains in place. The hazy airspace opacities are mildly improved at both lung b ases. The left costophrenic angle remains blunted. The bony thorax is intact with multiple overlying electrocardiogram leads. CONCLUSION: 1. Mild interval improvement in bilateral airspace disease. 2. Left pleural effusion remains. Buck Henry MD on July 26, 2017 at 5:04 Board Certified Radiologist. This report was verified electronically.
[2017-07-26 05:20] LABS: ALBUMIN 2.1 GM/DL (3.4-5.0); ALKALINE PHOSPHATASE 77 U/L (45-117); ALT (GPT) 115 U/L (12-78); AST (GOT) 106 U/L (15-37); BICARBONATE 28.3 MEQ/L (21.0-32.0); BLOOD UREA NITROGEN 10 MG/DL (7-18); CALCIUM 7.9 MG/DL (8.5-10.1); CHLORIDE 111 MEQ/L (98-107); CREATININE 0.67 MG/DL (0.60-1.30); GLOMERULAR FILTRATION RATE 119 ML/MIN (>89); GLUCOSE,RANDOM 119 MG/DL (74-106); MAGNESIUM 2.4 MG/DL (1.5-2.5); PHOSPHORUS 4.8 MG/DL (2.5-4.9); SODIUM (NA) 146 MEQ/L (136-145); TOTAL BILIRUBIN ADULT 0.2 MG/DL (0.2-1.0); TOTAL PROTEIN 5.4 GM/DL (6.4-8.2)
[2017-07-26] MEDS: methylPREDNISolone SO SUCC INJ 1,000 MG in SODIUM CHLORIDE 0.9% INJ 100 ML IV SCH (05:21)
[2017-07-26] MEDS: INSULIN ASPART SUPPLEMENTAL SCALE SQ SCH ×4 (06:00→17:44)
[2017-07-26] MEDS: CHLORHEXIDINE 0.12% (ORAL KIT) 15 ML CUP MT SCH ×2 (07:48→19:58)
[2017-07-26] MEDS: SODIUM CHLOR 0.9% 1000 ML INJ 1,000 ML IV SCH (07:48)
[2017-07-26] MEDS: RESP: BUDESONIDE 0.5 MG/2 ML NEB NEB SCH ×2 (08:06→20:23)
[2017-07-26] MEDS: REMOVE OLD PATCH T-DERMAL SCH (08:42)
[2017-07-26] MEDS: NICOTINE 14 MG/24 HR PATCH T-DERMAL SCH (08:42)
[2017-07-26] MEDS: FAMOTIDINE 20 MG TAB PO SCH ×2 (08:43→19:57)
[2017-07-26] MEDS: DOCUSATE SODIUM 50 MG/SENNA 8.6 MG TAB PO SCH ×2 (08:43→19:57)
[2017-07-26] MEDS: LANSOPRAZOLE SOLUTAB 30 MG TAB G-TUBE SCH (08:44)
[2017-07-26] MEDS: POLYETHYLENE GLYCOL 17 GM PKG PO SCH ×2 (08:44→19:57)
[2017-07-26] MEDS: LACTULOSE SYRUP 20 GM/30 ML CUP PO SCH (08:44)
[2017-07-26] MEDS: SODIUM CHLORIDE 0.9% FLUSH 10 ML FLUSH IV FLUSH SCH ×2 (08:44→19:57)
[2017-07-26] MEDS: ARTIFICIAL TEARS OPTH SOLN 15 ML BTL EACH EYE SCH ×3 (08:44→17:43)
[2017-07-26] MEDS ORDERED: 3% SALINE INJ 250 ML IV ONE (09:15)
[2017-07-26] MEDS ORDERED: NOREPINEPHRINE INJ 4 MG in SODIUM CHLOR 0.9% 250 ML INJ 246 ML IV PRN (09:45)
[2017-07-26] MEDS ORDERED: TERBUTALINE INJ 1 MG/ML AMP SQ PRN (09:45)
[2017-07-26] MEDS: 3% SALINE INJ 500 ML IV SCH ×2 (09:45→15:00)
--- NOTE | 2017-07-26 10:08 | HHI.CCPN ---
Subjective Remarks/Hospital Course This is a 66-year-old male. Date of admission 07/20/2017. Past medical history includes hypertension, hyperlipidemia, COPD with ongoing tobacco abuse, peptic ulcer disease and anxiety. He also has history of lumbar stenosis, degenerative joint disease of the back and cervical spine. He presents to [facility] with the following history. 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 According to his at bedside, patient is drug tested. Patient returned home from work on Sunday after his 30 day work schedule. Patient was changing the tire of a bike friend yesterday. Patient returned home in no acute distress. Today, patient was tired and was sleeping all day. Initially patient had similar symptoms at lunch. When the attempted to wake him up later this evening patient be was nonresponsive with a weak pulse. She attempted to use ammonia without response. At that time EMS was called and patient was transferred to [facility]. Patient was noted to be an acute change with a creatinine of 3.8. Baseline is normal. Potassium is 7.4 without EKG changes. Patient received bicarbonate, insulin/D50, calcium and Kayexalate in the ED. Repeat potassium 3 hours. Patient is making urine and appears concentrated. UA is pending. Patient leukocytosis 13,000. CPK was 5000. Lactic acid was 2.6. Urine drug screen revealed positive for opiates, amphetamines, benzodiazepines, THC and cocaine. Head CT is currently pending. Due to altered mental status patient was admitted after receiving 20 mg etomidate and 100 mg succinylcholine by ED physician. Patient also received 4 mg of midazolam and after which patient became hypotensive is currently receiving 3 L normal saline wide open. Head CT is currently pending. Patient received clindamycin along with piperacillin/ tazobactam in the ED. 07/21: Overnight the patient required to protamine infusion low-dose currently being weaned off. The patient continues on fentanyl and propofol infusion for ventilator synchrony. Patient's undergoing MRI evaluation results pending. The patient was noted to have significant elevation in creatinine kinase the patient is bolused 1 L IV fluids increase in normal saline 200 cc/hr. Lactic acid downtrending will continue to trend creatinine noted to be decreasing. 07/22: Currently afebrile. Off all vasopressors. We will switch to LR at 200 cc an hour. Recheck BMP this afternoon. Moving all 4 x-rays spontaneously right upper extremity less. Opens eyes but not following commands. Positive gag and corneal reflex. Subjective: 07/23: Currently on dexmedetomidine drip at 0.7 mg/kg/h. Minimal response to distinguish. Will hold at the present time and reassess neurological condition. EEG showed no epileptiform activity. Tolerating tube feeding. No bowel movement since admission. Currently afebrile. 07/24: Per nursing staff patient was off sedation over the night and he woke up and followed some simple commands, but due to agitation, hypertension and tachycardia patient was restarted on sedation. He is currently on Precedex at 1 , tolerating CPAP, sedated. T-max of 99. I/O 3029/1451. 07/25: No events over the night. This morning while attempting CPAP trial patient became rigid, unresponsive, with gaze deviation, tachypneic tachycardic and hypertensive, suggesting seizure activity. Patient was immediately given Ativan 2 mg 1 with resolution of episode. Neurology was contacted and plan for EEG and CT head as well as propofol infusion. No family present at bedside. T-max of 100.7 over the night. Urine output 2300 mL's over the last 24 hours. 07/26: EVD placed yesterday for declining mental status with hydrocephalus and severe cerebellar edema. this AM, extensor posturing. supratentorial ICPs controlled, but cerebellar edema persists. discussed with Dr. Castillo: csf could be consistent with encephalitis. d/w Dr. Barrow: will need posterior fossa decompression. Objective Vital Signs Date Time Temp Pulse Resp B/P (MAP) Pulse Ox O2 Delivery O2 Flow Rate FiO2 07/26/17 08:06 94 40 07/26/17 06:00 54 07/26/17 04:00 98.4 22 112/59 (76) Intake and Output 07/26/17 07/26/17 07/27/17 08:00 16:00 00:00 Intake Total 1078.5 ml 100 ml Output Total 1406 ml Balance -327.5 ml 100 ml Result Diagram: 07/26/17 0410 07/26/17 0410 Other Results Laboratory Tests Test 07/25/17 14:34 Blood Gas Puncture Site RT RADIAL Blood Gas Patient Temperature 98.6 Blood Gas HCO3 27 mmol/L (22-26) Blood Gas Base Excess 2.1 mmol/L (-2-2) Blood Gas Oxygen Saturation 92 % (90-100) Arterial Blood pH 7.38 (7.380-7.420) Arterial Blood Partial Pressure CO2 46 mmHg (38-42) Arterial Blood Partial Pressure O2 76 mmHg (61-120) Arterial Blood Oxygen Content 12.1 Vol % (12.0-20.0) Arterial Blood Carboxyhemoglobin 0.7 % (0-4) Arterial Blood Methemoglobin 1.6 % (0-2) Blood Gas Hemoglobin 9.3 G/DL (12.0-16.0) Oxygen Delivery Device VENT Blood Gas Ventilator Setting PRVC22/500/1.0/+5 Blood Gas Inspired Oxygen 40 % Imaging Last 24 hours Impressions Chest X-Ray 07/24/17599 Signed Impressions: Service Date/Time: Monday, July 24, 2017 03:41 - CONCLUSION: Patchy diffuse interstitial prominence and pulmonary vascular prominence unchanged. Ankur Shields MD Last Impressions Chest X-Ray 07/23/17599 Signed Impressions: Service Date/Time: Sunday, July 23, 2017 04:10 - CONCLUSION: Lungs grossly clear. Tubes and catheter in good position. Ankur Shields MD Neck Magnetic Resonance Angiography 07/21/17 Signed Impressions: Service Date/Time: Friday, July 21, 2017 08:40 - CONCLUSION: No acute neck arteriovascular abnormality is identified. There is no significant stenosis within either internal carotid artery. Lonnie Ross MD Head Magnetic Resonance Angiography 07/21/17 Signed Impressions: Service Date/Time: Friday, July 21, 2017 08:40 - CONCLUSION: No acute intracranial vascular abnormality is identified. Lonnie Ross MD Brain MRI 07/21/17 Signed Impressions: Service Date/Time: Friday, July 21, 2017 08:40 - CONCLUSION: Multifocal areas of restricted diffusion/recent ischemia within the centrum semiovale bilaterally, bilateral occipital lobes, bilateral basal ganglia, bilateral temporal lobes, and bilateral cerebellar hemispheres. Findings could be related to global anoxic event or less likely embolic phenomenon. Lonnie Ross MD Abdomen Ultrasound 07/21/17 Signed Impressions: Service Date/Time: Friday, July 21, 2017 15:47 - CONCLUSION: Cholelithiasis. No gallbladder wall thickening or pericholecystic fluid. Victor Manuel Barros MD Head CT 07/20/17 7177 Signed Impressions: Service Date/Time: Friday, July 21, 2017 00:53 - CONCLUSION: Abnormal brain appearance. Recommend MRI for further evaluation Lonnie Lock MD Objective Remarks General - middle-aged gentleman, intubated, ill-appearing, unresponsive HEENT - pupils equal, dilated, reactive, sclerae anicteric, neck supple, no nuchal rigidity, neck veins not distended, orally intubated CV - bradycardic rate, regular rhythm. sinus. Chest - equal chest rise. full mechanical support. PRVC. fio2 45%. peep 5. Abdomen - soft, non-tender, non-distended, no guarding. Skin - no rashes, no cyanosis, multiple tattoos bilateral upper extremities and thorax Extremities - warm and well perfused, no edema, + peripheral pulses, no clubbing Neuro - intubated, off sedation, unresponsive, pupils equal and reactive, extensor posturing. A/P Assessment and Plan Assessment: 66yM with acute encephalopathy and severe cerebellar edema of unclear etiology. very critically ill today with life-threatening malignant cerebral edema in the posterior fossa. will need decompression as a salvage maneuver. await CSF studies for more diagnostic information. will need hyperosmolar therapy in addition. Neuro/Psych: Toxic metabolic encephalopathy Polysubstance abuse disorder - UDS positive for opiates, benzos, amphetamines, THC and cocaine Depression Anxiety disorder Possible hypoxic ischemic encephalopathy Concern for new onset seizure Malignant Cerebellar edema Elevated ICP frequent neuro checks goal RASS -2. Discussed with neurology and neurosurgery plan for posterior fossa decompressive craniectomy hyperosmolar therapy serial sodiums, osms CT brain 07/21 There is patchy mild diminished attenuation in centrum semi-ovale bilaterally. There is mild heterogeneous diminished density in the genu region of internal capsules and globus pallidus bilaterally. There is vague diminished density in the cerebellar hemispheres bilaterally. There is no evidence of intracranial mass or hemorrhage. There is no abnormal extra-axial fluid accumulation or shift present. 07/21 MRI brain-Multifocal areas of restricted diffusion/recent ischemia within the centrum semiovale bilaterally, bilateral occipital lobes, bilateral basal ganglia, bilateral temporal lobes, and bilateral cerebellar hemispheres. Findings could be related to global anoxic event or less likely embolic phenomenon. 07/21 EEG revealed no epileptic activity 07/21-MRA brain/neck -no acute findings UDS + opiates, amphetamines, benzodiazepines, THC and cocaine CSF studies pending. EVD placed 07/25 by [facility]. CV: History of essential hypertension Hyperlipidemia Lactic acidosis -resolved Sinus bradycardia- secondary to elevated ICP Holding valsartan 320 mg p.o. daily due to hypotension/acute kidney injury Holding rosuvastatin 10 mg p.o. q. Sunday/Sunday/Sunday due to elevated LFTs. Resume when clinically indicated. holding amlodipine TTE results reviewed, LV size normal, EF of 55%. Levophed for cerebral perfusion pressure goal > 75 mmHg. Resp: Acute hypoxemic and hypercarbic respiratory failure Tobacco use disorder Continue [facility] Ventilator bundle Albuterol/ipratropium aerosols every 6 hours with albuterol aerosol every 2 hours as needed dyspnea budesonide 0.5/2 1 inhalation twice daily since on budesonide/formoterol 160/ 4.5 1 puff twice daily at home along with albuterol inhaler twice daily no weaning of mechanical ventilation until mental status and ICP improves wean fio2 for goal spo2 > 90% hob elevated GI: Elevated transaminases -slowly trending down Rhabdomyolysis -improving, urine output is adequate, CPK trending down Cholelithiasis CK levels-5000->32807->20K --> 5930 --> 3370 07/21 Liver ultrasound revealed cholelithiasis Hepatitis panel-negative Tube feeding with Neutra hep goal 45 cc an hour Lansoprazole for GI prophylaxis Docusate/senna 1 tablet twice daily for bowel regimen : Adler catheter has been placed for accurate I's and O's in a critically ill patient keep adler today. Endo: Sliding scale insulin with NovoLog with Accu-Cheks every 6 hours to maintain euglycemia/low regimen Hemoglobin A1c documented at 6.1 Renal: Acute kidney injury -resolved Rhabdomyolysis -improving Volume overload -patient is more than 10 L positive since admission decrease NS to 50cc/hr. Monitor urine output Accurate I's and O's Renal ultrasound revealed no hydronephrosis bilaterally 07/21 Urine eosinophils negative. Avoid nephrotoxic drugs Trend CPK hold on diuresis. Heme: Normocytic anemia Monitor CBC daily. Follow trend SQ Heparin initiated per Dr. Castillo ID: Received piperacillin/tazobactam and clindamycin ED for possible aspiration Empiric antibiotics-piperacillin/tazobactam, azithromycin and vancomycin day #4 Blood cultures 2, UA, sputum 5/5 all pending/no growth to date Strep pneumo, Legionella urine antigens-negative FEN: Hypophosphatemia -resolved Electrolyte protocol MSK: History of multiple lumbar/cervical spine surgeries PT evaluate and treat Access -Utilize peripheral IV. 07/25: left SC TLC 07/26: right radial art line adler 07/25 EVD Prophylaxis -GI -lansoprazole -DVT -SCD/ Heparin SQ Critical care time: 79 minutes, exclusive of separately billable procedures. Paulo Boswell MD July 26, 2017 10:08
--- NOTE | 2017-07-26 10:09 | HHI.NSPN ---
(Shakir Carroll) History Chief Complaint: multifocal infarct. (Shakir Carroll) Interval History 66-year-old obese gentleman who was admitted to [facility] intensive medical unit after presenting to the emergency room 5 days ago found unresponsive at home by . He was intubated and has been on ventilator support since his admission. Workup initially with CT and MRI scan of the brain revealed multifocal areas of infarct involving the bilateral supratentorial hemispheres as well as cerebellar hemispheres consistent with either embolic strokes or anoxia or hypoxia. His toxicology screen was positive for multiple drugs and polysubstance abuse including cocaine, cannabinoids, barbiturates, and opioids. He had a change in his neurologic status with posturing noted today and MRI scan obtained revealed progression of the bilateral cerebellar hemispheres strokes with obstruction of the fourth ventricle and associated hydrocephalus development. Neurosurgery was consulted for the hydrocephalus by the electromechanical inspector. 07/26/17: Pt sedated on Diprivan and Fentanyl drips. Not opening eyes. Pupils 3mm bilaterally NR bilaterally. Intubated. Ventriculostomy drain in place lowered to [address] Barrow with orders to increase to 5cmH20 in one hour. (Shakir Carroll) System Review Comments Not able to obtain given clinical condition. (Shakir Carroll) Exam Results Vital Signs Date Time Temp Pulse Resp B/P (MAP) Pulse Ox O2 Delivery O2 Flow Rate FiO2 07/26/17 08:06 94 40 07/26/17 06:00 54 07/26/17 04:00 98.4 22 112/59 (76) Intake and Output 07/26/17 07/26/17 07/27/17 08:00 16:00 00:00 Intake Total 1078.5 ml 100 ml Output Total 1406 ml Balance -327.5 ml 100 ml (Shakir Carroll) Physical Examination General: Pt sedated and intubated in ICU going to OR today for a decompressive craniectomy. Eyes: Pupils 3mm bilaterally. Sclera anicteric. Resp: CTA bilaterally. Heart: Mild bradycardia with HR 58 no murmurs. Abd: Soft positive bs Skin: No cyanosis or erythema. Muscle: Not following commands for muscle testing. No movement to pain in upper chest. Neuro: Pt sedated and intubated. Pupils 3mm bilaterally NR bilaterally. Not following commands. Ventriculostomy drain in place at 0cmH20 currently ICP -1 with good waveform. Draining clear CSF. (Shakir Carroll) Physical Examination Does not open his eyes when sedation is held ICPs have been normal with a ventriculostomy draining clear CSF Pupils are 3 mm and slightly sluggish Positive corneal reflex Positive cough refill Slight withdrawal to painful stimulation in the upper and lower extremities Not following commands (Hossein Barrow MD) Lab, Micro, Other Results Last Impressions Chest X-Ray 07/26/17 0600 Signed Impressions: Service Date/Time: July 03:44 - CONCLUSION: 1. Mild interval improvement in bilateral airspace disease. 2. Left pleural effusion remains. Buck Henry MD Head/Brain Mag Res Venography 07/25/17 0000 Signed Impressions: Service Date/Time: Tuesday, July 25, 2017 19:54 - CONCLUSION: Patent dural sinuses. Lonnie Munguia MD Head CT 07/25/17 0000 Signed Impressions: Service Date/Time: Tuesday, July 25, 2017 20:13 - CONCLUSION: 1. New right frontal ventriculostomy tube in good position. 2. Worsening effacement of basal cisterns and cortical sulci. 3. There is a low density at the periphery of the parietal and occipital lobes concerning for evolving infarcts. These were present on the prior MRI. 4. Low-density seen in the mid and inferior cerebellar hemispheres bilaterally with mass effect on the fourth ventricle. Lonnie Munguia MD Brain MRI 07/25/17 0000 Signed Impressions: Service Date/Time: Tuesday, July 25, 2017 10:37 - CONCLUSION: Worsening brain appearance with developing hydrocephalus which is presumably related to increasing edema in the posterior fossa. See above discussion. Lonnie Lock MD Neck Magnetic Resonance Angiography 07/21/17 0000 Signed Impressions: Service Date/Time: Friday, July 21, 2017 08:40 - CONCLUSION: No acute neck arteriovascular abnormality is identified. There is no significant stenosis within either internal carotid artery. Lonnie Ross MD Head Magnetic Resonance Angiography 07/21/17 0000 Signed Impressions: Service Date/Time: Friday, July 21, 2017 08:40 - CONCLUSION: No acute intracranial vascular abnormality is identified. Lonnie Ross MD Abdomen Ultrasound 07/21/17 0000 Signed Impressions: Service Date/Time: Friday, July 21, 2017 15:47 - CONCLUSION: Cholelithiasis. No gallbladder wall thickening or pericholecystic fluid. Victor Manuel Barros MD Laboratory Tests Test 07/25/17 13:00 07/25/17 14:34 07/25/17 16:13 07/25/17 22:56 Serum Osmolality 292 MOSM/KG 303 MOSM/KG Blood Gas Puncture Site RT RADIAL Blood Gas Patient Temperature 98.6 Blood Gas HCO3 27 mmol/L Blood Gas Base Excess 2.1 mmol/L Blood Gas Oxygen Saturation 92 % Arterial Blood pH 7.38 Arterial Blood Partial Pressure CO2 46 mmHg Arterial Blood Partial Pressure O2 76 mmHg Arterial Blood Oxygen Content 12.1 Vol % Arterial Blood Carboxyhemoglobin 0.7 % Arterial Blood Methemoglobin 1.6 % Blood Gas Hemoglobin 9.3 G/DL Oxygen Delivery Device VENT Blood Gas Ventilator Setting PRVC22/500/1.0/+5 Blood Gas Inspired Oxygen 40 % Sodium Level 141 MEQ/L 143 MEQ/L Test 07/26/17 00:31 07/26/17 04:10 CSF Volume (Tube 1) 2.5 ML CSF Supernatant Color (tube 1) CLEAR CSF Gross Blood (Tube 1) TRACE CSF WBC (Tube 1) 32 /MM3 CSF RBC (Tube 1) 144 /MM3 CSF Neutrophils 47 % CSF Lymphocytes 1 % CSF Monocytes 7 % CSF Differential Comment CSF Histiocytes 45 % CSF Glucose 77 MG/DL CSF Total Protein 15.8 MG/DL White Blood Count 5.9 TH/MM3 Red Blood Count 3.30 MIL/MM3 Hemoglobin 10.4 GM/DL Hematocrit 30.8 % Mean Corpuscular Volume 93.5 FL Mean Corpuscular Hemoglobin 31.4 PG Mean Corpuscular Hemoglobin Concent 33.6 % Red Cell Distribution Width 13.8 % Platelet Count 294 TH/MM3 Mean Platelet Volume 7.6 FL Neutrophils (%) (Auto) 85.8 % Lymphocytes (%) (Auto) 11.4 % Monocytes (%) (Auto) 2.6 % Eosinophils (%) (Auto) 0.0 % Basophils (%) (Auto) 0.2 % Neutrophils # (Auto) 5.1 TH/MM3 Lymphocytes # (Auto) 0.7 TH/MM3 Monocytes # (Auto) 0.2 TH/MM3 Eosinophils # (Auto) 0.0 TH/MM3 Basophils # (Auto) 0.0 TH/MM3 CBC Comment DIFF FINAL Differential Comment Blood Urea Nitrogen 10 MG/DL Creatinine 0.67 MG/DL Random Glucose 119 MG/DL Total Protein 5.4 GM/DL Albumin 2.1 GM/DL Calcium Level 7.9 MG/DL Phosphorus Level 4.8 MG/DL Magnesium Level 2.4 MG/DL Alkaline Phosphatase 77 U/L Aspartate Amino Transf (AST/SGOT) 106 U/L Alanine Aminotransferase (ALT/SGPT) 115 U/L Total Bilirubin 0.2 MG/DL Sodium Level 146 MEQ/L Potassium Level 4.6 MEQ/L Chloride Level 111 MEQ/L Carbon Dioxide Level 28.3 MEQ/L Anion Gap 7 MEQ/L Estimat Glomerular Filtration Rate 119 ML/MIN Total Creatine Kinase 1774 U/L Creatine Kinase MB 4.6 NG/ML Creatine Kinase MB % 0.3 % 07/26/17 07/26/17 07/27/17 15:00 23:00 07:00 Intake Total 100 ml Balance 100 ml IV Total 100 ml (Shakir Carroll) Medical Decision Making Impression and Plan A: 66-year-old gentleman with multifocal infarcts involving both hemispheres supratentorially as well as bilateral cerebellar hemispheres with worsening edema and obstructive hydrocephalus. His neurologic examination is very poor. Discussed with over the phone and recommended an emergent ventriculostomy placement to treat the obstructive hydrocephalus. If there is noted improvement subsequently and the option of possible suboccipital craniectomy for decompression could be considered if the family chooses to continue with the aggressive management although this would be a heroic procedure. The at this point consents to ventriculostomy placement and this was witnessed by the nursing staff. P: Dr. Barrow is recommending a suboccipital decompressive craniectomy. I have called the to get phone consent that was witnessed by the pts RN Chaparrita. I have discussed with the pts Coty Weaver who identifies herself as the patients and medical decision maker. I discussed the patients condition. I have discussed Dr. Barrow's recommendation of a suboccipital decompressive craniectomy. I have explained to her that the surgery will not reverse his strokes or damage from them. The goal of surgery is to allow more room for the brain to swell and help prevent further decline in his neurologic condition that could result in herniation. I have explained the surgery and the risks involved. The risks involved include but are not limited to bleeding , infection, muscle weakness, cerebral swelling, seizures, further strokes, visual changes, coma, blood clots in arms, legs, lungs, heart attack, pneumonia , and . No guarantees were made as to the results of surgery. He can still have complications after the surgery and I again told her this will not change his initial condition of multiple cerebral strokes but help with the complications of increased edema from the strokes. She expressed she understood his condition and the surgery as well as risks. She was given the option of no surgical intervention and expressed that she wants him to have the surgery. I asked if she had any further questions and she stated she did not. We plan to proceed with surgery today. Continue with Ventriculostomy drain and ICP measurement Continue with critical care Continue with sedation. Discussed with electromechanical inspector and RN. (Shakir Carroll) Attending Statement The exam, history, and the medical decision-making described in the above note were completed with the assistance of the mid-level provider. I reviewed and agree with the findings presented. I attest that I had a [id number] encounter with the patient on the same day, and personally performed and documented my assessment and findings in the medical record. ICPs have been normal with a ventriculostomy draining well. Follow-up CT scan of the head with progressive cerebral edema particularly the posterior fossa with fourth ventricle obstruction. Treatment options include continue current management with ventriculostomy and medical management of the edema. Also discussed the option of a posterior fossa/suboccipital craniectomy decompression and the wants to continue with aggressive treatment measures and requested we proceed with surgery. We will also plan brain biopsy to delineate whether this is related to infectious or ischemic etiology. Informed consent obtained. (Hossein Barrow MD) Shakir Carroll July 26, 2017 10:09 Hossein Barrow MD July 26, 2017 11:30
--- NOTE | 2017-07-26 10:22 | HHI.PR ---
Objective Vital Signs Date Time Temp Pulse Resp B/P (MAP) Pulse Ox O2 Delivery O2 Flow Rate FiO2 07/26/17 10:00 61 07/26/17 08:06 94 40 07/26/17 08:00 87.4 54 22 101/56 (71) 93 07/26/17 08:00 54 07/26/17 08:00 40 07/26/17 06:00 54 07/26/17 04:34 95 40 07/26/17 04:00 56 07/26/17 04:00 40 07/26/17 04:00 98.4 56 22 112/59 (76) 94 07/26/17 02:00 55 07/26/17 01:15 97 40 07/26/17 00:00 53 07/26/17 00:00 40 07/26/17 00:00 97.7 53 22 111/61 (78) 98 07/25/17 22:00 57 07/25/17 20:00 40 07/25/17 20:00 97.7 57 22 124/68 (86) 99 07/25/17 20:00 57 07/25/17 19:30 100 100 07/25/17 18:00 62 07/25/17 17:24 96 40 07/25/17 16:00 40 07/25/17 16:00 50 07/25/17 15:12 99 07/25/17 14:00 62 07/25/17 12:00 40 07/25/17 12:00 81 07/25/17 12:00 98.7 78 27 160/77 (104) 96 07/25/17 11:18 96 40 07/25/17 11:17 100 100 I/O 07/25/17 07/25/17 07/25/17 07/26/17 07/26/17 07/26/17 07:00 15:00 23:00 07:00 15:00 23:00 Intake Total 1439.3 ml 1251 ml 350 ml 1078.5 ml 700 ml Output Total 700 ml 1406 ml Balance 739.3 ml 1251 ml 350 ml -327.5 ml 700 ml IV Total 939.3 ml 1251 ml 350 ml 707.5 ml 700 ml Tube Feeding 500 ml 251 ml Other 120 ml Output Urine Total 700 ml 1325 ml Stool Total 0 ml 1 ml Drainage Total 80 ml # Bowel Movements 0 Result Diagram: 07/26/17 0410 07/26/17409 Objective Remarks on vent on sedatives pupil= unresponsive nurse though some posturing when off sedatives Assessment and Plan Assessment and Plan imp a lot of edema increased from 07/21 i started steroids high dose in case encephalitis echo andlabs and eeg neg csf some histiocytes ow underwhelming on acyclovir i dw id the case this am and they will see him for or today and will be interested to see what path shows critically ill Judd Castillo MD July 26, 2017 10:22
[2017-07-26] MEDS ORDERED: GELFOAM SIZE 100 ONE (11:29)
[2017-07-26] MEDS ORDERED: BUPIVACAINE/EPINEPHRINE 0.5% PF 30 ML VIAL ONE (11:29)
[2017-07-26] MEDS ORDERED: GENTAMICIN SULFATE 80 MG/2 ML VIAL ONE (11:29)
[2017-07-26] MEDS ORDERED: THROMBIN (TOPICAL) 5,000 UNIT VIAL ONE (11:29)
[2017-07-26] MEDS ORDERED: VANCOMYCIN HCL 1000 MG VIAL ONE (11:52)
[2017-07-26] MEDS ORDERED: SODIUM CHLOR 0.9% 250 ML INJ 250 ML ONE (11:53)
[2017-07-26] MEDS ORDERED: PHENYLEPH/NS 1000 MCG/10 ML SYR IV ONE (12:00)
[2017-07-26] MEDS ORDERED: LIDOCAINE HCL 1% PF 5 ML SYRINGE OTHER ONE (12:00)
[2017-07-26] MEDS ORDERED: VECURONIUM BROMIDE 20 MG VIAL IV ONE (12:00)
[2017-07-26] MEDS ORDERED: ROCURONIUM INJ 50 MG/5 ML SYRINGE IV PUSH ONE (12:00)
[2017-07-26] MEDS ORDERED: NORMOSOL R INJ 1,000 ML IV ONE (12:00)
[2017-07-26] MEDS ORDERED: PROPOFOL 200 MG/20 ML AMP IV ONE (12:00)
--- NOTE | 2017-07-26 13:31 | PD.ID.CON ---
History of Present Illness Service ID Consult Requested By Dr Castillo Reason for Consult meningoencephalits Primary Care Physician Víctor Leung M.D. 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 Per pt had absolutely no complaints prior to his presentation, specifically no fever, no headache, no malaise, did not notice any mental status change either Per when she found him unrespondsive his breathing was very shallow Pt presented afebrile with mildly elevated WBC of [address]/MRI brain were markedly abnormal with hydrocephalus and multiple lesions including basal ganglia and cerebellar b/l which are most consistent with embolic lesions or combinatin of embolic lesion and anoxia, less likely isolated anoxia. 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 He was at some point on pressors, but now off them Pt was in ARF due to rhabdomyolisis on presentation , was hydrated and his ARF resolved CSF was sent yday when the ventric was placed and it showed 33 WBC with a lot of hystiocytes w nl protein, glc.RBC were elevated G stain neg for org's 2 De cho w/o veg's Blx clx 4 sets are neg @ 1 and 5 days Review of Systems ROS Limitations: Clinical Condition, Intubated, Altered Mental Status, Unresponsive Past Family Social History Allergies: Coded Allergies: No Known Allergies (Verified Allergy, Unknown, 07/20/17) Past Medical History Essential hypertension Hyperlipidemia Depression/anxiety COPD with ongoing tobaccoism Degenerative joint disease in the lumbar and cervical spine History of colonic volvulus Peptic ulcer disease Past Surgical History History of lumbar laminectomy 1989, 1993 with another unknown date. With L5/ S1 laminectomy with interbody arthrodesis using peek cage bone graft 10/02. History of cervical laminectomy 05/2003 History of left rotator cuff repair December 2002 Appendectomy Partial colectomy for volvulus Active Ordered Medications Medications where reviewed in EMR Antibiotics Include: azithromycin acyclovir Family History Father 73 secondary to [place]. Mother 84 secondary to head trauma. Brother age 52 to gunshot wound. Social History Smokes 2 packs per day since age 17. Approximately 100 pack years. Social alcohol consumption. In the past, patient has denied any illicit drug use Per takes prescription opiates, one time saw his smoking pot, but she denies that pt ever did IV drugs Physical Exam Vital Signs Vital Signs Date Time Temp Pulse Resp B/P (MAP) Pulse Ox O2 Delivery O2 Flow Rate FiO2 07/26/17 10:00 61 07/26/17 08:06 94 40 07/26/17 08:00 98.4 54 22 101/56 (71) 93 07/26/17 08:00 54 07/26/17 08:00 40 07/26/17 06:00 54 07/26/17 04:34 95 40 07/26/17 04:00 56 07/26/17 04:00 40 07/26/17 04:00 98.4 56 22 112/59 (76) 94 07/26/17 02:00 55 07/26/17 01:15 97 40 07/26/17 00:00 53 07/26/17 00:00 40 07/26/17 00:00 97.7 53 22 111/61 (78) 98 07/25/17 22:00 57 07/25/17 20:00 40 07/25/17 20:00 97.7 57 22 124/68 (86) 99 07/25/17 20:00 57 07/25/17 19:30 100 100 07/25/17 18:00 62 07/25/17 17:24 96 40 07/25/17 16:00 40 07/25/17 16:00 50 07/25/17 15:12 99 07/25/17 14:00 62 Physical Exam CONSTITUTIONAL/GENERAL: This is an obese ederly patient, in no apparent distress. On vent TUBES/LINES/DRAINS: SKIN: No jaundice, rashes, or lesions. Ecchymoses on upper extremities. No wounds seen anteriorly. Skin temperature appropriate. Not diaphoretic. HEAD: Atraumatic. Normocephalic. EYES: Pupils equal and round and reactive. Extraocular motions intact. No scleral icterus. No injection or drainage. Fundi not examined. ENT: Hearing not tested Nose without bleeding or purulent drainage. Throat without visible erythema, exudates, masses, or lesions. Orally intubated NECK: Trachea midline. Supple, nontender. No palpable thyroid enlargement or nodularity. CARDIOVASCULAR: Regular rate and rhythm without murmurs, gallops, or rubs. No JVD. Peripheral pulses symmetric. RESPIRATORY/CHEST: Symmetric, unlabored respirations. Clear to auscultation. Breath sounds equal bilaterally. No wheezes, rales, or rhonchi. GASTROINTESTINAL: Abdomen soft, non-tender, nondistended. No hepato-splenomegaly , or palpable masses. No guarding. Bowel sounds present. GENITOURINARY: Without palpable bladder distension. Garner catheter in place with clear yellow urine. Prominent scrotum edema MUSCULOSKELETAL: Extremities without clubbing, cyanosis, Severe 4+ soft pitting edema. No joint tenderness or effusion noted. No calf tenderness. No mottling or clubbing. LYMPHATICS: No palpable cervical or supraclavicular adenopathy. NEUROLOGICAL: Unresponsive PSYCHIATRIC: Unable to assess Laboratory Laboratory Tests Test 07/25/17 14:34 07/25/17 16:13 07/25/17 22:56 07/26/17 00:31 Blood Gas Puncture Site RT RADIAL Blood Gas Patient Temperature 98.6 Blood Gas HCO3 27 Blood Gas Base Excess 2.1 Blood Gas Oxygen Saturation 92 Arterial Blood pH 7.38 Arterial Blood Partial Pressure CO2 46 Arterial Blood Partial Pressure O2 76 Arterial Blood Oxygen Content 12.1 Arterial Blood Carboxyhemoglobin 0.7 Arterial Blood Methemoglobin 1.6 Blood Gas Hemoglobin 9.3 Oxygen Delivery Device VENT Blood Gas Ventilator Setting PRVC22/500/1.0/+5 Blood Gas Inspired Oxygen 40 Sodium Level 141 143 Serum Osmolality 303 CSF Volume (Tube 1) 2.5 CSF Supernatant Color (tube 1) CLEAR CSF Gross Blood (Tube 1) TRACE CSF WBC (Tube 1) 32 CSF RBC (Tube 1) 144 CSF Neutrophils 47 CSF Lymphocytes 1 CSF Monocytes 7 CSF Differential Comment CSF Histiocytes 45 CSF Glucose 77 CSF Total Protein 15.8 Test 07/26/17 04:10 07/26/17 10:50 07/26/17 11:07 White Blood Count 5.9 Red Blood Count 3.30 Hemoglobin 10.4 Hematocrit 30.8 Mean Corpuscular Volume 93.5 Mean Corpuscular Hemoglobin 31.4 Mean Corpuscular Hemoglobin Concent 33.6 Red Cell Distribution Width 13.8 Platelet Count 294 Mean Platelet Volume 7.6 Neutrophils (%) (Auto) 85.8 Lymphocytes (%) (Auto) 11.4 Monocytes (%) (Auto) 2.6 Eosinophils (%) (Auto) 0.0 Basophils (%) (Auto) 0.2 Neutrophils # (Auto) 5.1 Lymphocytes # (Auto) 0.7 Monocytes # (Auto) 0.2 Eosinophils # (Auto) 0.0 Basophils # (Auto) 0.0 CBC Comment DIFF FINAL Differential Comment Blood Urea Nitrogen 10 Creatinine 0.67 Random Glucose 119 Total Protein 5.4 Albumin 2.1 Calcium Level 7.9 Phosphorus Level 4.8 Magnesium Level 2.4 Alkaline Phosphatase 77 Aspartate Amino Transf (AST/SGOT) 106 Alanine Aminotransferase (ALT/SGPT) 115 Total Bilirubin 0.2 Sodium Level 146 147 Potassium Level 4.6 Chloride Level 111 Carbon Dioxide Level 28.3 Anion Gap 7 Estimat Glomerular Filtration Rate 119 Total Creatine Kinase 1774 Creatine Kinase MB 4.6 Creatine Kinase MB % 0.3 Date/Time Source Procedure Growth Status 07/25/17 08:17 Blood Peripheral Aerobic Blood Culture - Preliminary NO GROWTH IN 1 DAY Resulted 07/25/17 08:17 Blood Peripheral Anaerobic Blood Culture - Preliminary NO GROWTH IN 1 DAY Resulted 07/26/17 10:50 Cerebral Spinal Fluid Shunt Fluid Acid Fast Stain Pending Received 07/26/17 10:50 Cerebral Spinal Fluid Shunt Fluid Mycobacterial Culture Pending Received 07/25/17 07:45 Sputum Endotracheal Gram Stain - Final Resulted 07/25/17 07:45 Sputum Endotracheal Sputum Culture - Preliminary RARE GROWTH NORMAL RESPIRATORY LUBA ... Resulted 07/20/17 22:50 Urine Catheterized Urine Legionella Antigen - Final PRESUMPTIVE NEGATIVE FOR LEGIONELLA P... Complete 07/20/17 22:50 Urine Catheterized Urine Streptococcus pneumoniae Antigen (M - Final PRESUMPTIVE NEGATIVE FOR STREPTOCOCCU... Complete Result Diagram: 07/26/17 0410 07/26/17 1107 Imaging Last Impressions Chest X-Ray 07/26/17 0600 Signed Impressions: Service Date/Time: July 03:44 - CONCLUSION: 1. Mild interval improvement in bilateral airspace disease. 2. Left pleural effusion remains. Buck Henry MD Head/Brain Mag Res Venography 07/25/17 0000 Signed Impressions: Service Date/Time: Tuesday, July 25, 2017 19:54 - CONCLUSION: Patent dural sinuses. Lonnie Munguia MD Head CT 07/25/17 Signed Impressions: Service Date/Time: Tuesday, July 25, 2017 20:13 - CONCLUSION: 1. New right frontal ventriculostomy tube in good position. 2. Worsening effacement of basal cisterns and cortical sulci. 3. There is a low density at the periphery of the parietal and occipital lobes concerning for evolving infarcts. These were present on the prior MRI. 4. Low-density seen in the mid and inferior cerebellar hemispheres bilaterally with mass effect on the fourth ventricle. Lonnie Munguia MD Brain MRI 07/25/17 Signed Impressions: Service Date/Time: Tuesday, July 25, 2017 10:37 - CONCLUSION: Worsening brain appearance with developing hydrocephalus which is presumably related to increasing edema in the posterior fossa. See above discussion. Lonnie Lock MD Neck Magnetic Resonance Angiography 07/21/17 Signed Impressions: Service Date/Time: Friday, July 21, 2017 08:40 - CONCLUSION: No acute neck arteriovascular abnormality is identified. There is no significant stenosis within either internal carotid artery. Lonnie Ross MD Head Magnetic Resonance Angiography 07/21/17 Signed Impressions: Service Date/Time: Friday, July 21, 2017 08:40 - CONCLUSION: No acute intracranial vascular abnormality is identified. Lonnie Ross MD Abdomen Ultrasound 07/21/17 Signed Impressions: Service Date/Time: Friday, July 21, 2017 15:47 - CONCLUSION: Cholelithiasis. No gallbladder wall thickening or pericholecystic fluid. Victor Manuel Barros MD Assessment and Plan Assessment and Plan ASbnormal CSF - R/o meningoencephalits overall neither radiological studies nor clinical presentation favours meningoencephalitis - not cw bacterial meni gitis at all after embolic strokes and anoxia the meningoencepahlitis down on diff dx list Acute VDRF ARF - cont acyclovir AKILAH will follow path obtained today Discussed Condition With Geo Sosa (pathology), Logan 9radiology) Reva Corrales MD July 26, 2017 13:31
--- NOTE | 2017-07-26 14:34 | PD.OP ---
Víctor Leung MD Operative Report Date of Surgery: July 26, 2017 Preoperative Diagnosis: Bilateral cerebellar hemisphere diffuse edema with compression of the fourth ventricle/brainstem and obstructive hydrocephalus Postoperative Diagnosis: Same Procedure: Bilateral suboccipital decompressive craniectomy; expensive dural bovine patch graft; left cerebellar hemisphere brain biopsy; microsurgical technique Anesthesia: General endotracheal by Anabela malik Surgeon: Hossein Barrow MD Aircraft De Icer Installer(s): Pau Ji Operation and Findings: Following administration of general endotracheal anesthesia, a gram of vancomycin intravenously was administered and patient received mannitol prior to this. After invasive lines were placed he was turned on a prone position on chest rolls and the head secured with a 3 pin Landin headrest with the neck slightly flexed. The posterior occipital region was then shaved and prepped with ChloraPrep and sterilely draped. A linear incision was then made after infiltrating the scalp with 0.5% Marcaine with epinephrine incision extending down through the galea. The occipital fascia also incised and the muscle fibers split in the midline avascular plane and detached from the occipital bone down to the foramen magnum. A superior cuff of this occipital muscle and fascia was also left in place for later closure. Using an M2 drill bar craniectomy was undertaken and bone wax at the edges for hemostasis. The dura was opened in a Y-shaped format. Further dissection was undertaken using microtechnique with microscope magnification. The dura was very tense from the significant posterior fossa/cerebral hemisphere brain swelling and the dura was opened and Y format and his CSF drained from the cisterna magna to decompress the posterior fossa. The left cerebellar hemisphere small corticectomy made and brain biopsy specimens were obtained using forceps for pathology and cultures. Bipolar cautery along with Gelfoam thrombin used for hemostasis from the biopsy area. The cerebellar hemispheres were more relaxed and pulsatile at this point. The dura approximated using 4 Nurolon interrupted sutures in a watertight fashion with a bovine pericardial patch graft to allow for decompression of the posterior fossa. Compressed Gelfoam along with BioGlue was used for reinforcement of the durotomy. The bone chips from the craniectomy were then packed reconstructing the cranial defect. The area prior to this copiously irrigated. The muscle fascia was approximated using 2-0 Vicryl in a sutures in the galea partially using 2-0 Vicryl in a stitches and finds concords with meli. A sterile dressing was then applied and she was in turn in a supine position and the Landin headrest removed. He was then taken back to the surgical intensive care unit. There were no intraoperative complications and all sponge and needle count was correct at the end of the procedure. Estimated blood loss 100 cc. Hossein Barrow MD July 26, 2017 14:34
[2017-07-26] MEDS ORDERED: niCARdipine INJ 25 MG in SODIUM CHLOR 0.9% 250 ML INJ 240 ML IV PRN (15:00)
[2017-07-26] MEDS: fentaNYL DRIP 250 ML IV PRN ×2 (15:00→18:23)
--- NOTE | 2017-07-26 15:40 | PD.PROCEDR ---
Procedure Note Procedure Procedure: Arterial Line Placement Right radial arterial line Diagnosis: Acute encephalopathy Indications: Need for beat to beat hemodynamic monitoring Consent: Emergent Description of the Procedure: The right wrist was prepped and draped sterilely. 1% lidocaine was used for local anesthesia. The pulse was located and a needle was advanced into the artery. A 20 gauge, 12 cm catheter was advanced into the artery using a modified Seldinger technique. The catheter was sutured to the skin and a sterile dressing was applied. The catheter was connected to a pressure transducer and an arterial waveform was noted. There were no immediate complications noted. There was minimal EBL. I personally performed the procedure. Paulo Boswell MD July 26, 2017 15:40
--- NOTE | 2017-07-26 16:49 | HHI.HCPN ---
Reason for visit a. To assist with evaluation and management of symptoms including: pain; encephalopathy; dyspnea b. To assist medical decision maker(s) with: better understanding of current medical conditions; weighing benefits/burdens of medical treatment options; making medical treatment decisions. . Subjective/Interval History Patient seen this AM. Intracranial pressures had increased , extensor posturing was noted and neurosrugery plans on going to the OR for a decompressive craniotomy. Neurology visited patient and recommended ID consult to evaluate for possible encephalitis. Acyclovir has been started but ID feels encephalitis is low on the differential list. Patient is sedated. Nursing pain levels are 0-2. at bedside. . . Family/friend interactions Met with for approximately 40 minutes at bedside. Son joined us for about 15 minutes. Reviewed course of events since possible seizure activity was noted in MICU. Discussed the reason for the ventriculostomy, the reason for the recommended craniotomy. We discussed impact on prognosis. is aware that neurological prognosis is now worse. She also understands that the neurosurgery efforts are solely to help prevent further brain damage but will not do anything to mitigate any damage already done by strokes. has met with Dr. Corrales from infections disease. has questions regarding specific diagnoses and order of events. I try and explain that there may be roles for the stroke, hypoxia, the psychoactive drugs that were taken in possible overdose, and infection. Unclear if it is only one of the issues or some combination and that it would be impossible to know for sure what order the events took place. We also discussed patient's living will and the intent of the medical team to honor the patient's goals as best understood. claims that the patient filled out the combined Living Will / Health [employer] Surrogate designation primarily to designate her as the surrogate. The Living Will was an afterthought. She feels that the patient would aggressive care until such time that it was clear he would only be vegetative. had concerns about basic care of patient in hospital which I attempted to address. . Advance Directives Living Will: Copy in medical record Health Care Surrogate: Copy in medical record Durable Power of Sole Edge Inker Machine: Completed, but not made available Advance Directive Specifics Date completed: Living will and healthcare surrogate designation were completed on 09/29/2016. . Health Care Surrogate(s): The healthcare surrogate is the patient's spouse--Coty Weaver . Documented care wishes: The patient's living will is the standard [place] living will. He has initialed only one condition to activate his wishes -- if he has "an end-stage condition." He would not want life prolonging procedures should be diagnosed with such condition. . Objective Vital Signs Date Time Temp Pulse Resp B/P (MAP) Pulse Ox O2 Delivery O2 Flow Rate FiO2 07/26/17 16:16 93 40 07/26/17 16:00 75 07/26/17 16:00 40 07/26/17 15:00 80 183/96 07/26/17 12:00 40 07/26/17 10:00 61 07/26/17 08:06 94 40 07/26/17 08:00 98.4 54 22 101/56 (71) 93 07/26/17 08:00 54 07/26/17 08:00 40 07/26/17 06:00 54 07/26/17 04:34 95 40 07/26/17 04:00 56 07/26/17 04:00 40 07/26/17 04:00 98.4 56 22 112/59 (76) 94 07/26/17 02:00 55 07/26/17 01:15 97 40 07/26/17 00:00 53 07/26/17 00:00 40 07/26/17 00:00 97.7 53 22 111/61 (78) 98 07/25/17 22:00 57 07/25/17 20:00 40 07/25/17 20:00 97.7 57 22 124/68 (86) 99 07/25/17 20:00 57 07/25/17 19:30 100 100 07/25/17 18:00 62 07/25/17 17:24 96 40 Intake & Output 07/26/17 07/26/17 07:00 19:00 Intake Total 1428.5 ml 2557.5 ml Output Total 1406 ml 100 ml Balance 22.5 ml 2457.5 ml IV Total 1057.5 ml 2557.5 ml Tube Feeding 251 ml Other 120 ml Output Urine Total 1325 ml Stool Total 1 ml Drainage Total 80 ml Estimated Blood Loss 100 ml . Physical Exam CONSTITUTIONAL/GENERAL: This is an adequately nourished patient, sedated, mechanically ventilated, in a surgical intensive care unit bed. Unresponsive. TUBES/LINES/DRAINS: Orotracheal tube; orogastric tube; SCDs; Garner catheter; peripheral IVs; Left subclavian central line. HEAD: Ventriuclostomy drain in place. SKIN: Multiple tattoos. No jaundice, rashes, or lesions. No wounds seen anteriorly. Skin temperature appropriate. Not diaphoretic. EYES: Pupils equal and round with sluggish response. Cannot evaluate extraocular movements. No scleral icterus. No injection or drainage. Fundi not examined. ENT: Unable to assess hearing.. Nose without bleeding or purulent drainage. Throat without visible erythema, exudates, masses, or lesions --though difficult to fully evaluate due to intubations. NECK: Trachea midline. CARDIOVASCULAR: Regular rate and rhythm without murmurs, gallops, or rubs. No JVD. RESPIRATORY/CHEST: Symmetric, unlabored respirations. Breath sounds equal bilaterally. Lungs clear. GASTROINTESTINAL: Abdomen soft, non-tender, slightly distended. No hepato- splenomegaly, or palpable masses. No guarding. Bowel sounds present. GENITOURINARY: Without palpable bladder distension. Garner catheter in place. MUSCULOSKELETAL: Extremities without clubbing, cyanosis. Mild edema in hands. LYMPHATICS: Not examined. NEUROLOGICAL: Sedated. Unresponsive. PSYCHIATRIC: Unable to evaluate due to level of responsiveness. . Diagnostic Tests Laboratory Laboratory Tests Test 07/24/17 04:50 07/25/17 04:55 07/25/17 07:50 07/25/17 13:00 White Blood Count 10.8 TH/MM3 (4.0-11.0) 11.3 TH/MM3 (4.0-11.0) Red Blood Count 3.65 MIL/MM3 (4.50-5.90) 3.73 MIL/MM3 (4.50-5.90) Hemoglobin 11.6 GM/DL (13.0-17.0) 11.6 GM/DL (13.0-17.0) Hematocrit 34.0 % (39.0-51.0) 34.8 % (39.0-51.0) Mean Corpuscular Volume 93.2 FL (80.0-100.0) 93.4 FL (80.0-100.0) Mean Corpuscular Hemoglobin 31.9 PG (27.0-34.0) 31.0 PG (27.0-34.0) Mean Corpuscular Hemoglobin Concent 34.2 % (32.0-36.0) 33.2 % (32.0-36.0) Red Cell Distribution Width 13.6 % (11.6-17.2) 13.7 % (11.6-17.2) Platelet Count 230 TH/MM3 (150-450) 288 TH/MM3 (150-450) Mean Platelet Volume 8.3 FL (7.0-11.0) 8.2 FL (7.0-11.0) Neutrophils (%) (Auto) 82.6 % (16.0-70.0) 72.0 % (16.0-70.0) Lymphocytes (%) (Auto) 9.5 % (9.0-44.0) 13.7 % (9.0-44.0) Monocytes (%) (Auto) 6.6 % (0.0-8.0) 9.3 % (0.0-8.0) Eosinophils (%) (Auto) 1.1 % (0.0-4.0) 4.6 % (0.0-4.0) Basophils (%) (Auto) 0.2 % (0.0-2.0) 0.4 % (0.0-2.0) Neutrophils # (Auto) 8.9 TH/MM3 (1.8-7.7) 8.1 TH/MM3 (1.8-7.7) Lymphocytes # (Auto) 1.0 TH/MM3 (1.0-4.8) 1.5 TH/MM3 (1.0-4.8) Monocytes # (Auto) 0.7 TH/MM3 (0-0.9) 1.0 TH/MM3 (0-0.9) Eosinophils # (Auto) 0.1 TH/MM3 (0-0.4) 0.5 TH/MM3 (0-0.4) Basophils # (Auto) 0.0 TH/MM3 (0-0.2) 0.0 TH/MM3 (0-0.2) CBC Comment DIFF FINAL DIFF FINAL Differential Comment Blood Urea Nitrogen 9 MG/DL (7-18) 9 MG/DL (7-18) Creatinine 0.70 MG/DL (0.60-1.30) 0.68 MG/DL (0.60-1.30) Random Glucose 123 MG/DL (74-106) 131 MG/DL (74-106) Total Protein 5.4 GM/DL (6.4-8.2) 5.8 GM/DL (6.4-8.2) Albumin 2.1 GM/DL (3.4-5.0) 2.2 GM/DL (3.4-5.0) Calcium Level 7.7 MG/DL (8.5-10.1) 8.2 MG/DL (8.5-10.1) Phosphorus Level 2.8 MG/DL (2.5-4.9) 3.4 MG/DL (2.5-4.9) Magnesium Level 2.3 MG/DL (1.5-2.5) 2.3 MG/DL (1.5-2.5) Alkaline Phosphatase 78 U/L (45-117) 87 U/L (45-117) Aspartate Amino Transf (AST/SGOT) 252 U/L (15-37) 158 U/L (15-37) Alanine Aminotransferase (ALT/SGPT) 128 U/L (12-78) 119 U/L (12-78) Total Bilirubin 0.3 MG/DL (0.2-1.0) 0.3 MG/DL (0.2-1.0) Sodium Level 142 MEQ/L (136-145) 143 MEQ/L (136-145) Potassium Level 3.9 MEQ/L (3.5-5.1) 3.5 MEQ/L (3.5-5.1) Chloride Level 108 MEQ/L (98-107) 107 MEQ/L (98-107) Carbon Dioxide Level 27.1 MEQ/L (21.0-32.0) 26.6 MEQ/L (21.0-32.0) Anion Gap 7 MEQ/L (5-15) 9 MEQ/L (5-15) Estimat Glomerular Filtration Rate 113 ML/MIN (>89) 117 ML/MIN (>89) Total Creatine Kinase 5930 U/L (39-308) 3370 U/L (39-308) Creatine Kinase MB 14.0 NG/ML (0.5-3.6) 7.2 NG/ML (0.5-3.6) Creatine Kinase MB % 0.2 % (0.0-4.0) 0.2 % (0.0-4.0) Urine Color YELLOW (YELLW/STRAW) Urine Turbidity CLEAR (CLEAR) Urine pH 7.5 (5.0-8.5) Urine Specific [place] 1.017 (1.002-1.035) Urine Protein TRACE mg/dL (NEG-TRACE) Urine Glucose (UA) NEG mg/dL (NEG) Urine Ketones NEG mg/dL (NEG) Urine Occult Blood MOD (NEG) Urine Nitrite NEG (NEG) Urine Bilirubin NEG (NEG) Urine Urobilinogen 4.0 MG/DL (LESS THAN Urine Leukocyte Esterase NEG (NEG) Urine RBC /hpf (0-3) Urine WBC 1 /hpf (0-5) Urine Transitional Epithelial Cells 1 /hpf (NONE) Urine Mucus FEW /lpf (OCC) Microscopic Urinalysis Comment CATH-CULT NOT IND Serum Osmolality 292 MOSM/KG (275-295) Test 07/25/17 14:34 07/25/17 16:13 07/25/17 22:56 07/26/17 00:31 Blood Gas Puncture Site RT RADIAL Blood Gas Patient Temperature 98.6 Blood Gas HCO3 27 mmol/L (22-26) Blood Gas Base Excess 2.1 mmol/L (-2-2) Blood Gas Oxygen Saturation 92 % (90-100) Arterial Blood pH 7.38 (7.380-7.420) Arterial Blood Partial Pressure CO2 46 mmHg (38-42) Arterial Blood Partial Pressure O2 76 mmHg (61-120) Arterial Blood Oxygen Content 12.1 Vol % (12.0-20.0) Arterial Blood Carboxyhemoglobin 0.7 % (0-4) Arterial Blood Methemoglobin 1.6 % (0-2) Blood Gas Hemoglobin 9.3 G/DL (12.0-16.0) Oxygen Delivery Device VENT Blood Gas Ventilator Setting PRVC22/500/1.0/+5 Blood Gas Inspired Oxygen 40 % Sodium Level 141 MEQ/L (136-145) 143 MEQ/L (136-145) Serum Osmolality 303 MOSM/KG (275-295) CSF Volume (Tube 1) 2.5 ML CSF Supernatant Color (tube 1) CLEAR (CLEAR) CSF Gross Blood (Tube 1) TRACE (0) CSF WBC (Tube 1) 32 /MM3 (0-10) CSF RBC (Tube 1) 144 /MM3 (NONE) CSF Neutrophils 47 % CSF Lymphocytes 1 % CSF Monocytes 7 % CSF Differential Comment CSF Histiocytes 45 % CSF Glucose 77 MG/DL (40-80) CSF Total Protein 15.8 MG/DL (15.0-45.0) Test 07/26/17 04:10 07/26/17 10:50 07/26/17 11:07 07/26/17 14:19 White Blood Count 5.9 TH/MM3 (4.0-11.0) Red Blood Count 3.30 MIL/MM3 (4.50-5.90) Hemoglobin 10.4 GM/DL (13.0-17.0) Hematocrit 30.8 % (39.0-51.0) Mean Corpuscular Volume 93.5 FL (80.0-100.0) Mean Corpuscular Hemoglobin 31.4 PG (27.0-34.0) Mean Corpuscular Hemoglobin Concent 33.6 % (32.0-36.0) Red Cell Distribution Width 13.8 % (11.6-17.2) Platelet Count 294 TH/MM3 (150-450) Mean Platelet Volume 7.6 FL (7.0-11.0) Neutrophils (%) (Auto) 85.8 % (16.0-70.0) Lymphocytes (%) (Auto) 11.4 % (9.0-44.0) Monocytes (%) (Auto) 2.6 % (0.0-8.0) Eosinophils (%) (Auto) 0.0 % (0.0-4.0) Basophils (%) (Auto) 0.2 % (0.0-2.0) Neutrophils # (Auto) 5.1 TH/MM3 (1.8-7.7) Lymphocytes # (Auto) 0.7 TH/MM3 (1.0-4.8) Monocytes # (Auto) 0.2 TH/MM3 (0-0.9) Eosinophils # (Auto) 0.0 TH/MM3 (0-0.4) Basophils # (Auto) 0.0 TH/MM3 (0-0.2) CBC Comment DIFF FINAL Differential Comment Blood Urea Nitrogen 10 MG/DL (7-18) Creatinine 0.67 MG/DL (0.60-1.30) Random Glucose 119 MG/DL (74-106) Total Protein 5.4 GM/DL (6.4-8.2) Albumin 2.1 GM/DL (3.4-5.0) Calcium Level 7.9 MG/DL (8.5-10.1) Phosphorus Level 4.8 MG/DL (2.5-4.9) Magnesium Level 2.4 MG/DL (1.5-2.5) Alkaline Phosphatase 77 U/L (45-117) Aspartate Amino Transf (AST/SGOT) 106 U/L (15-37) Alanine Aminotransferase (ALT/SGPT) 115 U/L (12-78) Total Bilirubin 0.2 MG/DL (0.2-1.0) Sodium Level 146 MEQ/L (136-145) 147 MEQ/L (136-145) Potassium Level 4.6 MEQ/L (3.5-5.1) Chloride Level 111 MEQ/L (98-107) Carbon Dioxide Level 28.3 MEQ/L (21.0-32.0) Anion Gap 7 MEQ/L (5-15) Estimat Glomerular Filtration Rate 119 ML/MIN (>89) Total Creatine Kinase 1774 U/L (39-308) Creatine Kinase MB 4.6 NG/ML (0.5-3.6) Creatine Kinase MB % 0.3 % (0.0-4.0) . Result Diagram: 07/26/17 0410 07/26/17 1107 Microbiology Microbiology Date/Time Source Procedure Growth Status 07/25/17 08:17 Blood Peripheral Aerobic Blood Culture - Preliminary NO GROWTH IN 1 DAY Resulted 07/25/17 08:17 Blood Peripheral Anaerobic Blood Culture - Preliminary NO GROWTH IN 1 DAY Resulted 07/25/17 08:04 Blood Peripheral Aerobic Blood Culture - Preliminary NO GROWTH IN 1 DAY Resulted 07/25/17 08:04 Blood Peripheral Anaerobic Blood Culture - Preliminary NO GROWTH IN 1 DAY Resulted 07/26/17 10:50 Cerebral Spinal Fluid Shunt Fluid Acid Fast Stain Pending Received 07/26/17 10:50 Cerebral Spinal Fluid Shunt Fluid Mycobacterial Culture Pending Received 07/26/17 00:31 Cerebral Spinal Fluid Shunt Fluid Fungal Smear Pending Received 07/26/17 00:31 Cerebral Spinal Fluid Shunt Fluid Fungal Culture Pending Received 07/26/17 00:31 Cerebral Spinal Fluid Shunt Fluid Gram Stain - Final Resulted 07/26/17 00:31 Cerebral Spinal Fluid Shunt Fluid CSF Culture Pending Resulted 07/25/17 07:45 Sputum Endotracheal Gram Stain - Final Resulted 07/25/17 07:45 Sputum Endotracheal Sputum Culture - Preliminary RARE GROWTH NORMAL RESPIRATORY LUBA ... Resulted 07/26/17 14:19 Wound Other Fungal Smear Pending Received 07/26/17 14:19 Wound Other Fungal Culture Pending Received 07/26/17 14:19 Wound Other Acid Fast Stain Pending Received 07/26/17 14:19 Wound Other Mycobacterial Culture Pending Received 07/26/17 14:19 Wound Other Gram Stain Pending Received 07/26/17 14:19 Wound Other Wound Culture Pending Received . Imaging Last Impressions Chest X-Ray 07/26/17 0600 Signed Impressions: Service Date/Time: July 03:44 - CONCLUSION: 1. Mild interval improvement in bilateral airspace disease. 2. Left pleural effusion remains. Buck Henry MD Head/Brain Mag Res Venography 07/25/17 0000 Signed Impressions: Service Date/Time: Tuesday, July 25, 2017 19:54 - CONCLUSION: Patent dural sinuses. Lonnie Munguia MD Head CT 07/25/17 0000 Signed Impressions: Service Date/Time: Tuesday, July 25, 2017 20:13 - CONCLUSION: 1. New right frontal ventriculostomy tube in good position. 2. Worsening effacement of basal cisterns and cortical sulci. 3. There is a low density at the periphery of the parietal and occipital lobes concerning for evolving infarcts. These were present on the prior MRI. 4. Low-density seen in the mid and inferior cerebellar hemispheres bilaterally with mass effect on the fourth ventricle. Lonnie Munguia MD Brain MRI 07/25/17 0000 Signed Impressions: Service Date/Time: Tuesday, July 25, 2017 10:37 - CONCLUSION: Worsening brain appearance with developing hydrocephalus which is presumably related to increasing edema in the posterior fossa. See above discussion. Lonnie Lock MD Neck Magnetic Resonance Angiography 07/21/17 0000 Signed Impressions: Service Date/Time: Friday, July 21, 2017 08:40 - CONCLUSION: No acute neck arteriovascular abnormality is identified. There is no significant stenosis within either internal carotid artery. Lonnie Ross MD Head Magnetic Resonance Angiography 07/21/17 0000 Signed Impressions: Service Date/Time: Friday, July 21, 2017 08:40 - CONCLUSION: No acute intracranial vascular abnormality is identified. Lonnie Ross MD Abdomen Ultrasound 07/21/17 0000 Signed Impressions: Service Date/Time: Friday, July 21, 2017 15:47 - CONCLUSION: Cholelithiasis. No gallbladder wall thickening or pericholecystic fluid. Victor Manuel Barros MD . Procedures * Intubation/mechanical ventilation * Ventriculostomy drain placement * Central line placement . . Assessment and Plan Disease Oriented Problem List: (1) Stroke Comment: Evolving with obstructive hydrocephalus and cerebral edema requiring emergent ventriculostomy placement on 07/25/17 . (2) Acute respiratory failure (3) Seizure Comment: EEG negative on 07/25/17 but outside plant field engineer felt patient had seizure activity. Would not be surprising given level of cerebral edema. . (4) Failed back syndrome (5) COPD (chronic obstructive pulmonary disease) (6) Hyperkalemia (7) Acute kidney injury (8) Rhabdomyolysis (9) Tobacco abuse disorder (10) Chronic, continuous use of opioids (11) Depression (12) Hypertension (13) Hyperlipidemia Symptom Scale: (1) Pain 0-10 Scale: Unable to quantify Comment: Patient has long history of chronic pain from his back for which he has undergone multiple surgeries. Has been on chronic opioids for many years. Additional sources of pain might now also include cerebral edema; prisca hole placement; prolonged bedbound status; Garner catheter; vascular access catheters ; restraints; orotracheal intubation; orogastric intubation. . (2) Encephalopathy 0-10 Scale: Unable to quantify Comment: Encephalopathy may be multifactorial. It appears he has had multiple strokes, cerebral edema, acute kidney injury, and electrolyte abnormalities all of which which are likely contributing to encephalopathy. . . (3) Dyspnea 0-10 Scale: Unable to quantify Comment: Currently managed with mechanical ventilation. . Pertinent Non-Medical Issues Psychosocial: Patient is well supported locally by his spouse. He has a biological son who lives in [place], [place], but who is here now. Spiritual: Gnosticist and spirituality have not played an important role in his life. Legal: Patient has a living will and designation of healthcare surrogate currently scanned into our electronic medical record. His is his surrogate. Ethical issues impacting care: Patient is currently incapacitated to make his own healthcare decisions. It is unclear if/when he will regain capacity to do so. . Important Contacts * Coty Weaver (spouse and health care surrogate) [phone] and [phone] * Blake Castillo (son) [phone] . Prognosis The patient's prognosis is now much worse with the obstructive hydrocephalus and cerebral edema requiring emergent ventriculostomy placement. Should he survive the hospitalization, chances of meaningful recovery are much less. . Code Status: Full Code Plan == CODE STATUS : FULL CODE == Patient is currently incapacitated to make his own healthcare decisions. It is becoming increasingly unlikely that he will regain capacity to make his own decisions. == Decision Making: His spouse--Coty Weaver --is his designated healthcare surrogate. == Goals of medical treatment: Currently, the goals are quite aggressive including full resuscitation. Health care surrogate is aware of his living will but feel strongly that the patient would want to continue to fight hard at this time. She wants to give him a chance to see if he is able to gain some neurological function before considering withdrawal of life support. == Symptoms (see symptom descriptions above): * Pain: Patient has multiple acute sources of pain as noted above, on top of his chronic back pain. He is currently sedated; pain appears adequately controlled. Current regiment appears to be effective. No further recommendations at this time. * Dyspnea: Patient is a long-term smoker and now unable to protect his airway. Dyspnea is currently being managed by mechanical ventilation. Was tolerating CPAP prior to his apparent seizure. Anticipate need for ongoing full vent support and tracheostomy much more likely needed if family would wish aggressive goals. No further recommendations at this time. * Agitation: Agitation is probably from a multifactorial delirium. Patient had been managed with dexmedetomidine. Anticipate the evolving stroke will dampen agitation as overall responsiveness declines. * Encephalopathy multifactorial.: We will continue to address the fixable contributors such as metabolic issues and possible infection. Psychoactive drugs present in urine tox screen have probably all cleared by now. Main source of encephalopathy now the stroke and associated edema. == Palliative care will continue to follow to assist with symptom management and to further clarify goals of medical treatment as the clinical course evolves. . . Time Spent Total Floor Time (mins): 55 (Total floor time included chart review; patient exam; discussion with Dr. Corrales; and above referenced bedside conference with health care surrogate and patient's son. ) Face to Face Time (mins): 40 >50% Counseling/Coord of Care: Yes Attestation To help prompt me to consider important information that might be impacting today's encounter and assessment, information from prior notes written by myself or my colleagues may have been "brought forward" into today's note. My signature on this note, however, is an attestation that I personally performed the exam, history, and/or decision-making noted today, and, unless otherwise indicated, the interactions with patient, family, and staff as well as the review of records all occurred today. I also attest that the listed assessment and stated plan reflect my best clinical judgment today based on the combination of historical information, prior notes, and today's exam/ interactions. When time spent is documented, it refers only to time spent today by the signer, or if indicated, combined time spent today by collaborating physician/nurse practitioner. . Paco Plata MD July 26, 2017 16:49
[2017-07-26] MEDS: niCARdipine INJ 50 MG in SODIUM CHLORID 0.9% 500 ML INJ 480 ML IV PRN (17:40)
[2017-07-26 17:45] LABS: HEMATOCRIT 35.1 % (39.0-51.0); HEMOGLOBIN 11.6 GM/DL (13.0-17.0); MEAN CORPUSCULAR HEMOGLOBIN 31.4 PG (27.0-34.0); MEAN PLATELET VOLUME 7.7 FL (7.0-11.0); PLATELET COUNT 429 TH/MM3 (150-450); RED BLOOD COUNT 3.69 MIL/MM3 (4.50-5.90); RED CELL DISTRIBUTION WIDTH 14.2 % (11.6-17.2); WHITE BLOOD COUNT 10.9 TH/MM3 (4.0-11.0)
[2017-07-26] MEDS: RESP: ALBUTEROL 2.5 MG/3 ML NEB (PRN) INH (20:23)
[2017-07-27] VITALS (18 sets, daily range): BP systolic 112–143; BP diastolic 48–85; PULSE 55–75; RESP 22–26; TEMP 98.8–100; O2SAT 91–100
[2017-07-27] MEDS: AZITHROMYCIN INJ 500 MG in SODIUM CHLOR 0.9% 250 ML INJ 250 ML IV SCH (00:20)
[2017-07-27] MEDS: SODIUM CHLOR 0.9% 1000 ML INJ 1,000 ML IV SCH (02:28)
[2017-07-27 02:43] LABS: BICARBONATE 29.9 MEQ/L (21.0-32.0); CALCIUM 7.6 MG/DL (8.5-10.1); CREATININE 0.73 MG/DL (0.60-1.30)
[2017-07-27] MEDS: PROPOFOL 1000 MG/100 ML INJ 100 ML IV PRN ×4 (03:50→23:46)
[2017-07-27] MEDS: CHLORHEXIDINE GLUCONATE 2 % 1 PACK (2 CLOTHS) TOP SCH (04:00)
[2017-07-27] MEDS: ACYCLOVIR IV SCH ×2 (04:48→12:07)
[2017-07-27] MEDS: SODIUM CHLORIDE 0.9% IV SCH ×2 (04:48→12:07)
[2017-07-27] MEDS: methylPREDNISolone SO SUCC INJ 1,000 MG in SODIUM CHLORIDE 0.9% INJ 100 ML IV SCH (05:51)
[2017-07-27] MEDS: INSULIN ASPART SUPPLEMENTAL SCALE SQ SCH ×4 (05:56→18:00)
[2017-07-27] MEDS ORDERED: NOREPINEPHRINE 4 MG/4 ML AMP ONE (06:29)
[2017-07-27 06:52] LABS: AUTOMATED NEUTROPHIL # 8.9 TH/MM3 (1.8-7.7); BASOPHIL % 0.2 % (0.0-2.0); HEMATOCRIT 28.3 % (39.0-51.0); HEMOGLOBIN 9.5 GM/DL (13.0-17.0); LYMPH % 10.5 % (9.0-44.0); LYMPHOCYTE # 1.2 TH/MM3 (1.0-4.8); MEAN CELL VOLUME 93.5 FL (80.0-100.0); MEAN CORPUSCULAR HEMOGLOBIN 31.4 PG (27.0-34.0); MEAN CORPUSCULAR HGB CONC 33.6 % (32.0-36.0); MEAN PLATELET VOLUME 7.6 FL (7.0-11.0); MONO % 10.4 % (0.0-8.0); MONOCYTE # 1.2 TH/MM3 (0-0.9); NEUT % 78.9 % (16.0-70.0); PLATELET COUNT 361 TH/MM3 (150-450); RED BLOOD COUNT 3.03 MIL/MM3 (4.50-5.90); RED CELL DISTRIBUTION WIDTH 13.8 % (11.6-17.2); WHITE BLOOD COUNT 11.3 TH/MM3 (4.0-11.0)
--- NOTE | 2017-07-27 07:37 | HHI.PR ---
Subjective Remarks postop Objective Vital Signs Date Time Temp Pulse Resp B/P (MAP) Pulse Ox O2 Delivery O2 Flow Rate FiO2 07/27/17 06:00 55 07/27/17 06:00 60 114/48 07/27/17 04:00 40 07/27/17 04:00 60 07/27/17 04:00 100.0 60 23 112/48 (69) 94 07/27/17 03:31 94 30 07/27/17 02:00 64 07/27/17 00:22 94 30 07/27/17 00:00 98.8 74 23 126/85 (99) 94 Automatic Cuff 07/27/17 00:00 40 07/27/17 00:00 74 07/26/17 22:00 73 07/26/17 21:00 64 110/48 07/26/17 20:45 62 114/50 07/26/17 20:29 100 30 07/26/17 20:00 62 07/26/17 20:00 97.6 62 24 128/54 (78) 98 07/26/17 20:00 40 07/26/17 18:30 62 116/60 07/26/17 18:00 63 07/26/17 18:00 63 118/56 07/26/17 17:41 67 127/56 07/26/17 17:40 70 143/68 07/26/17 16:16 93 40 07/26/17 16:00 98.5 84 23 164/72 (102) 93 07/26/17 16:00 75 07/26/17 16:00 40 07/26/17 16:00 84 164/72 07/26/17 15:45 75 155/73 07/26/17 15:30 81 183/89 07/26/17 15:15 82 178/83 07/26/17 15:00 80 183/96 07/26/17 12:00 40 07/26/17 10:30 95 60 07/26/17 10:00 61 07/26/17 08:06 94 40 07/26/17 08:00 98.4 54 22 101/56 (71) 93 07/26/17 08:00 54 07/26/17 08:00 40 I/O 07/26/17 07/26/17 07/26/17 07/27/17 07/27/1718 07:00 15:00 23:00 07:00 15:00 23:00 Intake Total 1078.5 ml 2557.5 ml 707.5 ml 789 ml Output Total 1406 ml 100 ml 927 ml 809 ml Balance -327.5 ml 2457.5 ml -219.5 ml -20 ml IV Total 707.5 ml 2557.5 ml 707.5 ml 400 ml Tube Feeding 251 ml 269 ml Other 120 ml 120 ml Output Urine Total 1325 ml 850 ml 725 ml Stool Total 1 ml Drainage Total 80 ml 77 ml 84 ml Estimated Blood Loss 100 ml # Bowel Movements 0 0 Result Diagram: 07/27/17 0430 07/27/17 0130 Objective Remarks on vent on sedatives pupil= unresponsive Assessment and Plan Assessment and Plan imp a lot of edema increased from 07/21 i started steroids high dose in case encephalitis echo andlabs and eeg neg csf some histiocytes ow underwhelming on acyclovir i dw id the casethought noninfectious hsv pend critically ill ct by nicole ferguson pend Judd Castillo MD July 27, 2017 07:37
[2017-07-27 07:38] LABS: ALBUMIN 1.9 GM/DL (3.4-5.0); ALKALINE PHOSPHATASE 64 U/L (45-117); ALT (GPT) 98 U/L (12-78); AST (GOT) 68 U/L (15-37); BICARBONATE 28.5 MEQ/L (21.0-32.0); BLOOD UREA NITROGEN 15 MG/DL (7-18); CALCIUM 7.7 MG/DL (8.5-10.1); CHLORIDE 117 MEQ/L (98-107); CREATININE 0.78 MG/DL (0.60-1.30); GLOMERULAR FILTRATION RATE 100 ML/MIN (>89); GLUCOSE,RANDOM 126 MG/DL (74-106); MAGNESIUM 2.5 MG/DL (1.5-2.5); PHOSPHORUS 2.9 MG/DL (2.5-4.9); SODIUM (NA) 152 MEQ/L (136-145); TOTAL BILIRUBIN ADULT 0.2 MG/DL (0.2-1.0); TOTAL PROTEIN 4.9 GM/DL (6.4-8.2)
[2017-07-27] MEDS: RESP: BUDESONIDE 0.5 MG/2 ML NEB NEB SCH ×2 (07:39→21:59)
[2017-07-27] MEDS ORDERED: FUROSEMIDE 20 MG/2 ML VIAL IV PUSH ONE (07:45)
--- NOTE | 2017-07-27 07:54 | HHI.CCPN ---
Subjective Remarks/Hospital Course This is a 66-year-old male. Date of admission 07/20/2017. Past medical history includes hypertension, hyperlipidemia, COPD with ongoing tobacco abuse, peptic ulcer disease and anxiety. He also has history of lumbar stenosis, degenerative joint disease of the back and cervical spine. He presents to [facility] with the following history. 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 According to his at bedside, patient is drug tested. Patient returned home from work on Sunday after his 30 day work schedule. Patient was changing the tire of a bike friend yesterday. Patient returned home in no acute distress. Today, patient was tired and was sleeping all day. Initially patient had similar symptoms at lunch. When the attempted to wake him up later this evening patient be was nonresponsive with a weak pulse. She attempted to use ammonia without response. At that time EMS was called and patient was transferred to [facility]. Patient was noted to be an acute change with a creatinine of 3.8. Baseline is normal. Potassium is 7.4 without EKG changes. Patient received bicarbonate, insulin/D50, calcium and Kayexalate in the ED. Repeat potassium 3 hours. Patient is making urine and appears concentrated. UA is pending. Patient leukocytosis 13,000. CPK was 5000. Lactic acid was 2.6. Urine drug screen revealed positive for opiates, amphetamines, benzodiazepines, THC and cocaine. Head CT is currently pending. Due to altered mental status patient was admitted after receiving 20 mg etomidate and 100 mg succinylcholine by ED physician. Patient also received 4 mg of midazolam and after which patient became hypotensive is currently receiving 3 L normal saline wide open. Head CT is currently pending. Patient received clindamycin along with piperacillin/ tazobactam in the ED. 07/21: Overnight the patient required to protamine infusion low-dose currently being weaned off. The patient continues on fentanyl and propofol infusion for ventilator synchrony. Patient's undergoing MRI evaluation results pending. The patient was noted to have significant elevation in creatinine kinase the patient is bolused 1 L IV fluids increase in normal saline 200 cc/hr. Lactic acid downtrending will continue to trend creatinine noted to be decreasing. 07/22: Currently afebrile. Off all vasopressors. We will switch to LR at 200 cc an hour. Recheck BMP this afternoon. Moving all 4 x-rays spontaneously right upper extremity less. Opens eyes but not following commands. Positive gag and corneal reflex. Subjective: 07/23: Currently on dexmedetomidine drip at 0.7 mg/kg/h. Minimal response to distinguish. Will hold at the present time and reassess neurological condition. EEG showed no epileptiform activity. Tolerating tube feeding. No bowel movement since admission. Currently afebrile. 07/24: Per nursing staff patient was off sedation over the night and he woke up and followed some simple commands, but due to agitation, hypertension and tachycardia patient was restarted on sedation. He is currently on Precedex at 1 , tolerating CPAP, sedated. T-max of 99. I/O 3029/1451. 07/25: No events over the night. This morning while attempting CPAP trial patient became rigid, unresponsive, with gaze deviation, tachypneic tachycardic and hypertensive, suggesting seizure activity. Patient was immediately given Ativan 2 mg 1 with resolution of episode. Neurology was contacted and plan for EEG and CT head as well as propofol infusion. No family present at bedside. T-max of 100.7 over the night. Urine output 2300 mL's over the last 24 hours. 07/26: EVD placed yesterday for declining mental status with hydrocephalus and severe cerebellar edema. this AM, extensor posturing. supratentorial ICPs controlled, but cerebellar edema persists. discussed with Dr. Romna: csf could be consistent with encephalitis. d/w Dr. Barrow: will need posterior fossa decompression. 07/27: no improvements in mental status. s/p suboccipital crani yesterday. remains intermittently on cardene and levophed to maintain cpp. ICP controlled. brain biopsies pending. Objective Vital Signs Date Time Temp Pulse Resp B/P (MAP) Pulse Ox O2 Delivery O2 Flow Rate FiO2 07/27/17 06:00 55 07/27/17 06:00 114/48 07/27/17 04:00 40 07/27/17 04:00 100.0 23 94 Intake and Output 07/27/17 07/27/17 07/28/17 08:00 16:00 00:00 Intake Total 789 ml Output Total 809 ml Balance -20 ml Result Diagram: 07/27/17 04307/27/17 043 Imaging Last 24 hours Impressions Chest X-Ray 07/24/17 0600 Signed Impressions: Service Date/Time: Monday, July 24, 2017 03:41 - CONCLUSION: Patchy diffuse interstitial prominence and pulmonary vascular prominence unchanged. Ankur Shields MD Last Impressions Chest X-Ray 07/23/17 0600 Signed Impressions: Service Date/Time: Sunday, July 23, 2017 04:10 - CONCLUSION: Lungs grossly clear. Tubes and catheter in good position. Ankur Shields MD Neck Magnetic Resonance Angiography 07/21/17 0000 Signed Impressions: Service Date/Time: Friday, July 21, 2017 08:40 - CONCLUSION: No acute neck arteriovascular abnormality is identified. There is no significant stenosis within either internal carotid artery. Lonnie Ross MD Head Magnetic Resonance Angiography 07/21/17 0000 Signed Impressions: Service Date/Time: Friday, July 21, 2017 08:40 - CONCLUSION: No acute intracranial vascular abnormality is identified. Lonnie Ross MD Brain MRI 07/21/17 0000 Signed Impressions: Service Date/Time: Friday, July 21, 2017 08:40 - CONCLUSION: Multifocal areas of restricted diffusion/recent ischemia within the centrum semiovale bilaterally, bilateral occipital lobes, bilateral basal ganglia, bilateral temporal lobes, and bilateral cerebellar hemispheres. Findings could be related to global anoxic event or less likely embolic phenomenon. Lonnie Ross MD Abdomen Ultrasound 07/21/17 0000 Signed Impressions: Service Date/Time: Friday, July 21, 2017 15:47 - CONCLUSION: Cholelithiasis. No gallbladder wall thickening or pericholecystic fluid. Victor Manuel Barros MD Head CT 07/20/17 2225 Signed Impressions: Service Date/Time: Friday, July 21, 2017 00:53 - CONCLUSION: Abnormal brain appearance. Recommend MRI for further evaluation Lonnie Lock MD Objective Remarks General - middle-aged gentleman, intubated, ill-appearing, unresponsive HEENT - pupils equal, dilated, reactive, sclerae anicteric, neck supple, no nuchal rigidity, neck veins not distended, orally intubated CV - bradycardic rate, regular rhythm. sinus. Chest - equal chest rise. full mechanical support. PRVC. fio2 45%. peep 5. Abdomen - soft, non-tender, non-distended, no guarding. Skin - no rashes, no cyanosis, multiple tattoos bilateral upper extremities and thorax Extremities - warm and well perfused, no edema, + peripheral pulses, no clubbing Neuro - intubated, off sedation, unresponsive, pupils equal and reactive, extensor posturing. A/P Assessment and Plan Assessment: 66yM with acute encephalopathy and severe cerebellar edema of unclear etiology. very critically ill with ongoing life-threatening malignant cerebral edema in the posterior fossa. s/p suboccipital crani for decompression 07/26 and brain biopsies. continue hyperosmolar therapy and supportive care. has been greater than a week on full mechanical ventilation, and I do not see his mental status improving to the point of extubation within the next week or more. will likely require tracheostomy to progress his care. 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 Discussed with neurology and neurosurgery hyperosmolar therapy serial sodiums, osms 3% nacl at 30cc/hr. CT brain 07/21 There is patchy mild diminished attenuation in centrum semi-ovale bilaterally. There is mild heterogeneous diminished density in the genu region of internal capsules and globus pallidus bilaterally. There is vague diminished density in the cerebellar hemispheres bilaterally. There is no evidence of intracranial mass or hemorrhage. There is no abnormal extra-axial fluid accumulation or shift present. 07/21 MRI brain-Multifocal areas of restricted diffusion/recent ischemia within the centrum semiovale bilaterally, bilateral occipital lobes, bilateral basal ganglia, bilateral temporal lobes, and bilateral cerebellar hemispheres. Findings could be related to global anoxic event or less likely embolic phenomenon. 07/21 EEG revealed no epileptic activity 07/21-MRA brain/neck -no acute findings UDS + opiates, amphetamines, benzodiazepines, THC and cocaine CSF studies pending. brain biopsies pending EVD placed 07/25 by [facility]. CV: History of essential hypertension Hyperlipidemia Lactic acidosis -resolved Sinus bradycardia- secondary to elevated ICP Holding valsartan 320 mg p.o. daily due to hypotension/acute kidney injury Holding rosuvastatin 10 mg p.o. q. Shane/Sunday/Sunday due to elevated LFTs. Resume when clinically indicated. holding amlodipine TTE results reviewed, LV size normal, EF of 55%. Levophed for cerebral perfusion pressure goal > 75 mmHg. Resp: Acute hypoxemic and hypercarbic respiratory failure Tobacco use disorder Continue [facility] Ventilator bundle Albuterol/ipratropium aerosols every 6 hours with albuterol aerosol every 2 hours as needed dyspnea budesonide 0.5/2 1 inhalation twice daily since on budesonide/formoterol 160/ 4.5 1 puff twice daily at home along with albuterol inhaler twice daily no weaning of mechanical ventilation until mental status and ICP improves wean fio2 for goal spo2 > 90% hob elevated GI: Elevated transaminases -slowly trending down Rhabdomyolysis -improving, urine output is adequate, CPK trending down Cholelithiasis CK levels-5000->17394->20K --> 5930 --> 3370 07/21 Liver ultrasound revealed cholelithiasis Hepatitis panel-negative Tube feeding with Neutra hep goal 45 cc an hour Lansoprazole for GI prophylaxis Docusate/senna 1 tablet twice daily for bowel regimen : Adler catheter has been placed for accurate I's and O's in a critically ill patient keep adler today. Endo: Sliding scale insulin with NovoLog with Accu-Cheks every 6 hours to maintain euglycemia/low regimen Hemoglobin A1c documented at 6.1 Renal: Acute kidney injury -resolved Rhabdomyolysis -improving Volume overload -patient is more than 10 L positive since admission saline lock NS ivf lasix 20mg iv x 1. Monitor urine output Accurate I's and O's Renal ultrasound revealed no hydronephrosis bilaterally 07/21 Urine eosinophils negative. Avoid nephrotoxic drugs Trend CPK Heme: Normocytic anemia Monitor CBC daily. Follow trend hold SQH ID: Received piperacillin/tazobactam and clindamycin ED for possible aspiration Empiric antibiotics-piperacillin/tazobactam, azithromycin and vancomycin Blood cultures 2, UA, sputum 07/21 all pending/no growth to date Strep pneumo, Legionella urine antigens-negative FEN: Hypophosphatemia -resolved Electrolyte protocol MSK: History of multiple lumbar/cervical spine surgeries PT evaluate and treat Access 07/25: left SC TLC 5/10: right radial art line adler 07/25 EVD Prophylaxis -GI -lansoprazole -DVT -SCD/ Heparin SQ Critical care time: 47 minutes, exclusive of separately billable procedures. Paulo Boswell MD July 27, 2017 07:54
[2017-07-27] MEDS: ARTIFICIAL TEARS OPTH SOLN 15 ML BTL EACH EYE SCH ×3 (08:09→18:17)
[2017-07-27] MEDS: POLYETHYLENE GLYCOL 17 GM PKG PO SCH ×2 (08:09→21:23)
[2017-07-27] MEDS: SODIUM CHLORIDE 0.9% FLUSH 10 ML FLUSH IV FLUSH SCH ×2 (08:09→21:22)
[2017-07-27] MEDS: DOCUSATE SODIUM 50 MG/SENNA 8.6 MG TAB PO SCH ×2 (08:09→21:23)
[2017-07-27] MEDS: CHLORHEXIDINE 0.12% (ORAL KIT) 15 ML CUP MT SCH ×2 (08:09→20:00)
[2017-07-27] MEDS: FAMOTIDINE 20 MG TAB PO SCH ×2 (08:09→21:23)
[2017-07-27] MEDS: LACTULOSE SYRUP 20 GM/30 ML CUP PO SCH (08:09)
[2017-07-27] MEDS: 3% SALINE INJ 500 ML IV SCH (08:10)
--- NOTE | 2017-07-27 10:00 | PD.CARD.PN ---
Subjective Subjective Remarks intubated, sedated Objective Medications Current Medications Medications (Trade) Dose Ordered Sig/Claudia Route Start Time Stop Time Status Last Admin (NS Flush) 2 ml UNSCH PRN IV FLUSH 07/21/17 00:00 (NS Flush) 2 ml BID IV FLUSH 07/21/17 09:00 07/27/17 08:09 (Tears Naturale Opth Soln) 1 drop TID EACH EYE 07/21/17 09:00 07/27/17 08:09 (Zofran Inj) 4 mg Q6H PRN IV PUSH 07/21/17 00:00 (Albuterol Neb) 2.5 mg Q2HR NEB PRN INH 07/21/17 00:00 07/26/17 20:23 ([facility] Nursing Information) 1 Q361D XX 07/21/17 00:00 07/21/17 00:00 (Chlorhexidine 2% Cloth) Taper DAILY@04 TOP 07/21/17 04:00 07/17/18 03:59 07/25/17 04:00 (Chlorhexidine 2% Cloth) 3 pack UNSCH PRN TOP 07/21/17 00:00 (Dilia-Colace) 1 tab BID PO 07/21/17 09:00 07/27/17 08:09 (Milk Of Magnesia Liq) 30 ml Q12H PRN PO 07/21/17 00:00 (Senokot) 17.2 mg Q12H PRN PO 07/21/17 00:00 (Dulcolax Supp) 10 mg DAILY PRN RECTAL 07/21/17 00:00 (Lactulose Liq) 30 ml DAILY PRN PO 07/21/17 00:00 (Peridex 0.12% Liq) 15 ml BID@08,20 MT 07/21/17 08:00 07/27/17 08:09 (D50w (Vial) Inj) 50 ml UNSCH PRN IV PUSH 07/21/17 00:00 (Glucagon Inj) 1 mg UNSCH PRN OTHER 07/21/17 00:00 (NovoLOG SUPPLEMENTAL SCALE) 1 Q6HR SQ 07/21/17 00:00 07/23/17 00:00 (Pulmicort Respule Neb) 0.5 mg Q12HR NEB NEB 07/21/17 08:00 07/27/17 07:39 (Brethine Inj) 1 mg UNSCH PRN SQ 07/21/17 00:30 Azithromycin 500 mg/Sodium Chloride 250 ml @ 250 mls/hr Q24H IV 07/21/17 01:00 07/28/17 00:59 07/27/17 00:20 (Norvasc) 5 mg HS PO 07/22/17 21:00 Future Hold 07/24/17 19:56 (Lactulose Liq) 30 ml DAILY PO 07/22/17 09:00 07/27/17 08:09 (Apresoline Inj) 10 mg Q1H PRN IV PUSH 07/22/17 09:45 07/24/17 19:51 (Nitroglycerin 2% Oint) 2 inch Q6H PRN TOPICAL 07/22/17 09:45 (Miralax) 17 gm BID PO 07/23/17 21:00 07/27/17 08:09 Levetriacetam 750 mg/Sodium Chloride 107.5 ml @ 420 mls/hr Q12H IV 07/25/17 10:00 07/26/17 22:20 (Pepcid) 20 mg Q12HR PO 07/25/17 21:00 07/27/17 08:09 Acyclovir Sodium 1034 mg/Sodium Chloride 150 ml @ 150 mls/hr Q8H IV 07/25/17 20:00 07/27/17 04:48 Methylprednisolone Sodium Succinate 1000 mg/Sodium Chloride 116 ml @ 232 mls/hr Q24H IV 07/26/17 06:00 07/27/17 05:51 Sodium Chloride 500 ml @ 30 mls/hr CONTINUOUS IV 07/26/17 09:15 07/27/17 08:10 Norepinephrine Bitartrate 4 mg/ Sodium Chloride 250 ml @ 7.5 mls/hr TITRATE PRN IV 07/26/17 09:45 07/27/17 06:00 (Brethine Inj) 1 mg UNSCH PRN SQ 07/26/17 09:45 Propofol 100 ml @ 3.102 mls/ hr TITRATE PRN IV 07/26/17 11:00 07/27/17 08:10 Fentanyl Citrate 250 ml @ 5 mls/hr TITRATE PRN IV 07/26/17 11:00 07/26/17 18:23 Nicardipine HCl 50 mg/Sodium Chloride 500 ml @ 50 mls/hr TITRATE PRN IV 07/26/17 17:30 07/26/17 17:40 Vital Signs / I&O Vital Signs Date Time Temp Pulse Resp B/P (MAP) Pulse Ox O2 Delivery O2 Flow Rate FiO2 07/27/17 08:00 30 07/27/17 08:00 59 07/27/17 07:43 92 30 07/27/17 06:00 55 07/27/17 06:00 60 114/48 07/27/17 04:00 40 07/27/17 04:00 60 07/27/17 04:00 100.0 60 23 112/48 (69) 94 07/27/17 03:31 94 30 07/27/17 02:00 64 07/27/17 00:22 94 30 07/27/17 00:00 98.8 74 23 126/85 (99) 94 Automatic Cuff 07/27/17 00:00 40 07/27/17 00:00 74 07/26/17 22:00 73 07/26/17 21:00 64 110/48 07/26/17 20:45 62 114/50 07/26/17 20:29 100 30 07/26/17 20:00 62 07/26/17 20:00 97.6 62 24 128/54 (78) 98 07/26/17 20:00 40 07/26/17 18:30 62 116/60 07/26/17 18:00 63 07/26/17 18:00 63 118/56 07/26/17 17:41 67 127/56 07/26/17 17:40 70 143/68 07/26/17 16:16 93 40 07/26/17 16:00 98.5 84 23 164/72 (102) 93 07/26/17 16:00 75 07/26/17 16:00 40 07/26/17 16:00 84 164/72 07/26/17 15:45 75 155/73 07/26/17 15:30 81 183/89 07/26/17 15:15 82 178/83 07/26/17 15:00 80 183/96 07/26/17 12:00 40 07/26/17 10:30 95 60 07/26/17 10:00 61 I/O 5/10/18 07/26/17 07/26/17 07/27/17 07/27/17 07/27/17 07:00 15:00 23:00 07:00 15:00 23:00 Intake Total 1078.5 ml 2557.5 ml 707.5 ml 789 ml Output Total 1405 ml 100 ml 927 ml 809 ml Balance -326.5 ml 2457.5 ml -219.5 ml -20 ml IV Total 707.5 ml 2557.5 ml 707.5 ml 400 ml Tube Feeding 251 ml 269 ml Other 120 ml 120 ml Output Urine Total 1325 ml 850 ml 725 ml Drainage Total 80 ml 77 ml 84 ml Estimated Blood Loss 100 ml # Bowel Movements 1 0 0 Laboratory GENERAL: SKIN: Warm and dry. HEAD: Normocephalic. EYES: No scleral icterus. No injection or drainage. NECK: Supple, trachea midline. No JVD or lymphadenopathy. CARDIOVASCULAR: Regular rate and rhythm without murmurs, gallops, or rubs. RESPIRATORY: Breath sounds equal bilaterally. No accessory muscle use. GASTROINTESTINAL: Abdomen soft, non-tender, nondistended. MUSCULOSKELETAL: No cyanosis, or edema. BACK: Nontender without obvious deformity. No CVA tenderness. Laboratory Tests Test 07/26/17 10:50 07/26/17 11:07 07/26/17 14:19 07/26/17 16:55 Sodium Level 147 MEQ/L White Blood Count 10.9 TH/MM3 Red Blood Count 3.69 MIL/MM3 Hemoglobin 11.6 GM/DL Hematocrit 35.1 % Mean Corpuscular Volume 95.0 FL Mean Corpuscular Hemoglobin 31.4 PG Mean Corpuscular Hemoglobin Concent 33.0 % Red Cell Distribution Width 14.2 % Platelet Count 429 TH/MM3 Mean Platelet Volume 7.7 FL Test 07/26/17 17:10 07/27/17 01:30 07/27/17 04:30 Sodium Level 146 MEQ/L 150 MEQ/L 152 MEQ/L Serum Osmolality 308 MOSM/KG Blood Urea Nitrogen 15 MG/DL 15 MG/DL Creatinine 0.73 MG/DL 0.78 MG/DL Random Glucose 124 MG/DL 126 MG/DL Calcium Level 7.6 MG/DL 7.7 MG/DL Potassium Level 3.8 MEQ/L 3.8 MEQ/L Chloride Level 116 MEQ/L 117 MEQ/L Carbon Dioxide Level 29.9 MEQ/L 28.5 MEQ/L Anion Gap 4 MEQ/L 7 MEQ/L Estimat Glomerular Filtration Rate 108 ML/MIN 100 ML/MIN White Blood Count 11.3 TH/MM3 Red Blood Count 3.03 MIL/MM3 Hemoglobin 9.5 GM/DL Hematocrit 28.3 % Mean Corpuscular Volume 93.5 FL Mean Corpuscular Hemoglobin 31.4 PG Mean Corpuscular Hemoglobin Concent 33.6 % Red Cell Distribution Width 13.8 % Platelet Count 361 TH/MM3 Mean Platelet Volume 7.6 FL Neutrophils (%) (Auto) 78.9 % Lymphocytes (%) (Auto) 10.5 % Monocytes (%) (Auto) 10.4 % Eosinophils (%) (Auto) 0.0 % Basophils (%) (Auto) 0.2 % Neutrophils # (Auto) 8.9 TH/MM3 Lymphocytes # (Auto) 1.2 TH/MM3 Monocytes # (Auto) 1.2 TH/MM3 Eosinophils # (Auto) 0.0 TH/MM3 Basophils # (Auto) 0.0 TH/MM3 CBC Comment DIFF FINAL Differential Comment Total Protein 4.9 GM/DL Albumin 1.9 GM/DL Phosphorus Level 2.9 MG/DL Magnesium Level 2.5 MG/DL Alkaline Phosphatase 64 U/L Aspartate Amino Transf (AST/SGOT) 68 U/L Alanine Aminotransferase (ALT/SGPT) 98 U/L Total Bilirubin 0.2 MG/DL Total Creatine Kinase 969 U/L Creatine Kinase MB 2.9 NG/ML Creatine Kinase MB % 0.3 % Assessment and Plan Problem List: (1) Toxic metabolic encephalopathy ICD Codes: G92 - Toxic encephalopathy (2) Tetrahydrocannabinol (THC) use disorder, mild, abuse ICD Codes: F12.10 - Cannabis abuse, uncomplicated (3) Encephalopathy ICD Codes: G93.40 - Encephalopathy, unspecified (4) Stroke ICD Codes: I63.9 - Cerebral infarction, unspecified (5) Chronic, continuous use of opioids ICD Codes: F11.90 - Opioid use, unspecified, uncomplicated (6) Cocaine use ICD Codes: F14.90 - Cocaine use, unspecified, uncomplicated Assessment and Plan 1.) I am not sure if he is stable enough to undergo head and neck manipulation to undergo swapnil; he is intubated so i cant assess his ability to swollow; will consider swapnil if risk benefit ratio favors it, he is cleared by neurology and neurosurgery for head and neck manipulation and if findings may policy change clerks 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
[2017-07-27] MEDS: levETIRAcetam INJ 750 MG in SODIUM CHLORIDE 0.9% INJ 100 ML IV SCH ×2 (10:16→21:23)
--- NOTE | 2017-07-27 10:48 | HHI.NSPN ---
(Nikky Granados) Note Status Status: Progress Note (Nikky Granados) Interval History Interval History 66-year-old obese gentleman who was admitted to [facility] intensive medical unit after presenting to the emergency room 5 days ago found unresponsive at home by . He was intubated and has been on ventilator support since his admission. Workup initially with CT and MRI scan of the brain revealed multifocal areas of infarct involving the bilateral supratentorial hemispheres as well as cerebellar hemispheres consistent with either embolic strokes or anoxia or hypoxia. His toxicology screen was positive for multiple drugs and polysubstance abuse including cocaine, cannabinoids, barbiturates, and opioids. He had a change in his neurologic status with posturing noted today and MRI scan obtained revealed progression of the bilateral cerebellar hemispheres strokes with obstruction of the fourth ventricle and associated hydrocephalus development. Neurosurgery was consulted for the hydrocephalus by the noc analyst. 07/26/17: Pt sedated on Diprivan and Fentanyl drips. Not opening eyes. Pupils 3mm bilaterally NR bilaterally. Intubated. Ventriculostomy drain in place lowered to [address] Barrow with orders to increase to 5cmH20 in one hour. 07/27/17: Remains intubated, sedation turned off 10 minutes ago. There is minimal eye opening currently. For follow-up CT brain later this afternoon. Ventriculostomy draining well. (Nikky Granados) Labs, Micro, & Vital Signs Results Date Time Temp Pulse Resp B/P (MAP) Pulse Ox O2 Delivery O2 Flow Rate FiO2 07/27/17 08:00 30 07/27/17 08:00 59 07/27/17 07:43 92 30 07/27/17 06:00 55 07/27/17 06:00 60 114/48 07/27/17 04:00 40 07/27/17 04:00 60 07/27/17 04:00 100.0 60 23 112/48 (69) 94 07/27/17 03:31 94 30 07/27/17 02:00 64 07/27/17 00:22 94 30 07/27/17 00:00 98.8 74 23 126/85 (99) 94 Automatic Cuff 07/27/17 00:00 40 07/27/17 00:00 74 07/26/17 22:00 73 07/26/17 21:00 64 110/48 07/26/17 20:45 62 114/50 07/26/17 20:29 100 30 07/26/17 20:00 62 07/26/17 20:00 97.6 62 24 128/54 (78) 98 07/26/17 20:00 40 07/26/17 18:30 62 116/60 07/26/17 18:00 63 07/26/17 18:00 63 118/56 07/26/17 17:41 67 127/56 07/26/17 17:40 70 143/68 07/26/17 16:16 93 40 07/26/17 16:00 98.5 84 23 164/72 (102) 93 07/26/17 16:00 75 07/26/17 16:00 40 07/26/17 16:00 84 164/72 07/26/17 15:45 75 155/73 07/26/17 15:30 81 183/89 07/26/17 15:15 82 178/83 07/26/17 15:00 80 183/96 07/26/17 12:00 40 Constitutional Vital Signs Date Time Temp Pulse Resp B/P (MAP) Pulse Ox O2 Delivery O2 Flow Rate FiO2 07/27/17 08:00 30 07/27/17 08:00 59 07/27/17 07:43 92 30 07/27/17 06:00 55 07/27/17 06:00 60 114/48 07/27/17 04:00 40 07/27/17 04:00 60 07/27/17 04:00 100.0 60 23 112/48 (69) 94 07/27/17 03:31 94 30 07/27/17 02:00 64 07/27/17 00:22 94 30 07/27/17 00:00 98.8 74 23 126/85 (99) 94 Automatic Cuff 07/27/17 00:00 40 07/27/17 00:00 74 07/26/17 22:00 73 07/26/17 21:00 64 110/48 07/26/17 20:45 62 114/50 07/26/17 20:29 100 30 07/26/17 20:00 62 07/26/17 20:00 97.6 62 24 128/54 (78) 98 07/26/17 20:00 40 07/26/17 18:30 62 116/60 07/26/17 18:00 63 07/26/17 18:00 63 118/56 07/26/17 17:41 67 127/56 07/26/17 17:40 70 143/68 07/26/17 16:16 93 40 07/26/17 16:00 98.5 84 23 164/72 (102) 93 07/26/17 16:00 75 07/26/17 16:00 40 07/26/17 16:00 84 164/72 07/26/17 15:45 75 155/73 07/26/17 15:30 81 183/89 07/26/17 15:15 82 178/83 07/26/17 15:00 80 183/96 07/26/17 12:00 40 (Nikky Granados) Review of Systems ROS Limitations: Intubated (Nikky Granados) Physical Exam Intubated, sedation turned off for 10 minutes. Minimal eye opening. Not following commands. No spontaneous movements. Ventriculostomy draining well at 5 cm water, CSF clear. ICP normal Pupils are 3 mm and slightly sluggish Motor: No spontaneous movement, not following commands for testing (Nikky Granados) Medications Current Medications Current Medications Medications (Trade) Dose Ordered Sig/Claudia Route PRN Reason Start Time Stop Time Status Last Admin Dose Admin Sodium Chloride (NS Flush) 2 ml UNSCH PRN IV FLUSH FLUSH AFTER USING IV ACCESS 07/21/17 00:00 Sodium Chloride (NS Flush) 2 ml BID IV FLUSH 07/21/17 09:00 07/27/17 08:09 Artificial Tears (Tears Naturale Opth Soln) 1 drop TID EACH EYE 07/21/17 09:00 07/27/17 08:09 Ondansetron HCl (Zofran Inj) 4 mg Q6H PRN IV PUSH NAUSEA OR VOMITING 07/21/17 00:00 Albuterol Sulfate (Albuterol Neb) 2.5 mg Q2HR NEB PRN INH SOB/WHEEZING 07/21/17 00:00 07/26/17 20:23 Miscellaneous Information ([facility] Nursing Information) 1 Q361D XX 07/21/17 00:00 07/21/17 00:00 Chlorhexidine Gluconate (Chlorhexidine 2% Cloth) Taper DAILY@04 TOP 07/21/17 04:00 07/17/18 03:59 07/25/17 04:00 Chlorhexidine Gluconate (Chlorhexidine 2% Cloth) 3 pack UNSCH PRN TOP HYGIENIC CARE 07/21/17 00:00 Senna/Docusate Sodium (Dilia-Colace) 1 tab BID PO 07/21/17 09:00 07/27/17 08:09 Magnesium Hydroxide (Milk Of Magnesia Liq) 30 ml Q12H PRN PO Mild constipation 07/21/17 00:00 Sennosides (Senokot) 17.2 mg Q12H PRN PO Moderate constipation 07/21/17 00:00 Bisacodyl (Dulcolax Supp) 10 mg DAILY PRN RECTAL SEVERE CONSITIPATION 07/21/17 00:00 Lactulose (Lactulose Liq) 30 ml DAILY PRN PO SEVERE CONSITIPATION 07/21/17 00:00 Chlorhexidine Gluconate (Peridex 0.12% Liq) 15 ml BID@08,20 MT 07/21/17 08:00 07/27/17 08:09 Dextrose (D50w (Vial) Inj) 50 ml UNSCH PRN IV PUSH HYPOGLYCEMIA-SEE COMMENTS 07/21/17 00:00 Glucagon (Glucagon Inj) 1 mg UNSCH PRN OTHER HYPOGLYCEMIA-SEE COMMENTS 07/21/17 00:00 Insulin Aspart (NovoLOG SUPPLEMENTAL SCALE) 1 Q6HR SQ 07/21/17 00:00 07/23/17 00:00 Budesonide (Pulmicort Respule Neb) 0.5 mg Q12HR NEB NEB 07/21/17 08:00 07/27/17 07:39 Terbutaline Sulfate (Brethine Inj) 1 mg UNSCH PRN SQ For Extravasation 07/21/17 00:30 Azithromycin 500 mg/Sodium Chloride 250 ml @ 250 mls/hr Q24H IV 07/21/17 01:00 07/28/17 00:59 07/27/17 00:20 Amlodipine Besylate (Norvasc) 5 mg HS PO 07/22/17 21:00 Future Hold 07/24/17 19:56 Lactulose (Lactulose Liq) 30 ml DAILY PO 07/22/17 09:00 07/27/17 08:09 Hydralazine HCl (Apresoline Inj) 10 mg Q1H PRN IV PUSH SBP> OR = 180, DBP> OR = 100 07/22/17 09:45 07/24/17 19:51 Nitroglycerin (Nitroglycerin 2% Oint) 2 inch Q6H PRN TOPICAL SBP> OR = 180, DBP> OR = 100 07/22/17 09:45 Polyethylene Glycol (Miralax) 17 gm BID PO 07/23/17 21:00 07/27/17 08:09 Levetriacetam 750 mg/Sodium Chloride 107.5 ml @ 420 mls/hr Q12H IV 07/25/17 10:00 07/27/17 10:16 Famotidine (Pepcid) 20 mg Q12HR PO 07/25/17 21:00 07/27/17 08:09 Acyclovir Sodium 1034 mg/Sodium Chloride 150 ml @ 150 mls/hr Q8H IV 07/25/17 20:00 07/27/17 04:48 Methylprednisolone Sodium Succinate 1000 mg/Sodium Chloride 116 ml @ 232 mls/hr Q24H IV 07/26/17 06:00 07/27/17 05:51 Sodium Chloride 500 ml @ 30 mls/hr CONTINUOUS IV 07/26/17 09:15 07/27/17 08:10 Norepinephrine Bitartrate 4 mg/ Sodium Chloride 250 ml @ 7.5 mls/hr TITRATE PRN IV Blood pressure management 07/26/17 09:45 07/27/17 06:00 Terbutaline Sulfate (Brethine Inj) 1 mg UNSCH PRN SQ For Extravasation 07/26/17 09:45 Propofol 100 ml @ 3.102 mls/ hr TITRATE PRN IV SEDATION 07/26/17 11:00 07/27/17 08:10 Fentanyl Citrate 250 ml @ 5 mls/hr TITRATE PRN IV SEDATION 07/26/17 11:00 07/26/17 18:23 Nicardipine HCl 50 mg/Sodium Chloride 500 ml @ 50 mls/hr TITRATE PRN IV Blood pressure management 07/26/17 17:30 07/26/17 17:40 (Nikky Granados) Plan Plan Remarks 66-year-old male found unresponsive MRI brain showed multiple infarcts to both bilateral supratentorial hemispheres and cerebellar hemisphere with mass-effect into the fourth ventricle and associated hydrocephalus Status post cerebellar decompressive craniectomy with placement of ventriculostomy drain Tox screen positive for multiple drugs including cocaine, cannabinoids, barbiturates, and opioids (iNkky Granados) Attending Statement for follow-up CT Brain today, continue ventriculostomy draining with ICP monitoring okay for sedation vacation as tolerated, follow-up neurological exam Continue hyperosmotic for intracerebral swelling (Nikky Granados) The exam, history, and the medical decision-making described in the above note were completed with the assistance of the mid-level provider. I reviewed and agree with the findings presented. I attest that I had a [id number] encounter with the patient on the same day, and personally performed and documented my assessment and findings in the medical record. (Tucker Sofia MD) Nikky Granados July 27, 2017 10:48 Tucker Sofia MD July 28, 2017 13:38
[2017-07-27 10:52] LABS: HSV 1,PCR Negative (Negative)
[2017-07-27] MEDS: fentaNYL DRIP 250 ML IV PRN (12:07)
--- NOTE | 2017-07-27 13:40 | HHI.IDPN ---
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 Vital Signs Date Time Temp Pulse Resp B/P (MAP) Pulse Ox O2 Delivery O2 Flow Rate FiO2 07/27/17 12:00 30 07/27/17 12:00 56 07/27/17 12:00 99.5 56 22 134/60 (84) 92 07/27/17 10:00 75 07/27/17 08:00 99.5 56 23 139/60 (86) 91 07/27/17 08:00 30 07/27/17 08:00 59 07/27/17 07:43 92 30 07/27/17 06:00 55 07/27/17 06:00 60 114/48 07/27/17 04:00 40 07/27/17 04:00 60 07/27/17 04:00 100.0 60 23 112/48 (69) 94 07/27/17 03:31 94 30 07/27/17 02:00 64 07/27/17 00:22 94 30 07/27/17 00:00 98.8 74 23 126/85 (99) 94 Automatic Cuff 07/27/17 00:00 40 07/27/17 00:00 74 07/26/17 22:00 73 07/26/17 21:00 64 110/48 07/26/17 20:45 62 114/50 07/26/17 20:29 100 30 07/26/17 20:00 62 07/26/17 20:00 97.6 62 24 128/54 (78) 98 07/26/17 20:00 40 07/26/17 18:30 62 116/60 07/26/17 18:00 63 07/26/17 18:00 63 118/56 07/26/17 17:41 67 127/56 07/26/17 17:40 70 143/68 07/26/17 16:16 93 40 07/26/17 16:00 98.5 84 23 164/72 (102) 93 07/26/17 16:00 75 07/26/17 16:00 40 07/26/17 16:00 84 164/72 07/26/17 15:45 75 155/73 07/26/17 15:30 81 183/89 07/26/17 15:15 82 178/83 07/26/17 15:00 80 183/96 . Laboratory Tests Test 07/26/17 04:10 07/26/17 16:55 07/27/17 04:30 White Blood Count 5.9 TH/MM3 10.9 TH/MM3 11.3 TH/MM3 Red Blood Count 3.30 MIL/MM3 3.69 MIL/MM3 3.03 MIL/MM3 Hemoglobin 10.4 GM/DL 11.6 GM/DL 9.5 GM/DL Hematocrit 30.8 % 35.1 % 28.3 % Mean Corpuscular Volume 93.5 FL 95.0 FL 93.5 FL Mean Corpuscular Hemoglobin 31.4 PG 31.4 PG 31.4 PG Mean Corpuscular Hemoglobin Concent 33.6 % 33.0 % 33.6 % Red Cell Distribution Width 13.8 % 14.2 % 13.8 % Platelet Count 294 TH/MM3 429 TH/MM3 361 TH/MM3 Mean Platelet Volume 7.6 FL 7.7 FL 7.6 FL Neutrophils (%) (Auto) 85.8 % 78.9 % Lymphocytes (%) (Auto) 11.4 % 10.5 % Monocytes (%) (Auto) 2.6 % 10.4 % Eosinophils (%) (Auto) 0.0 % 0.0 % Basophils (%) (Auto) 0.2 % 0.2 % Neutrophils # (Auto) 5.1 TH/MM3 8.9 TH/MM3 Lymphocytes # (Auto) 0.7 TH/MM3 1.2 TH/MM3 Monocytes # (Auto) 0.2 TH/MM3 1.2 TH/MM3 Eosinophils # (Auto) 0.0 TH/MM3 0.0 TH/MM3 Basophils # (Auto) 0.0 TH/MM3 0.0 TH/MM3 CBC Comment DIFF FINAL DIFF FINAL Differential Comment Laboratory Tests Test 07/25/17 16:13 07/25/17 22:56 07/26/17 04:10 07/26/17 11:07 Sodium Level 141 MEQ/L 143 MEQ/L 146 MEQ/L 147 MEQ/L Serum Osmolality 303 MOSM/KG Blood Urea Nitrogen 10 MG/DL Creatinine 0.67 MG/DL Random Glucose 119 MG/DL Total Protein 5.4 GM/DL Albumin 2.1 GM/DL Calcium Level 7.9 MG/DL Phosphorus Level 4.8 MG/DL Magnesium Level 2.4 MG/DL Alkaline Phosphatase 77 U/L Aspartate Amino Transf (AST/SGOT) 106 U/L Alanine Aminotransferase (ALT/SGPT) 115 U/L Total Bilirubin 0.2 MG/DL Potassium Level 4.6 MEQ/L Chloride Level 111 MEQ/L Carbon Dioxide Level 28.3 MEQ/L Anion Gap 7 MEQ/L Estimat Glomerular Filtration Rate 119 ML/MIN Total Creatine Kinase 1774 U/L Creatine Kinase MB 4.6 NG/ML Creatine Kinase MB % 0.3 % Test 07/26/17 17:10 07/27/17 01:30 07/27/17 04:30 07/27/17 11:29 Sodium Level 146 MEQ/L 150 MEQ/L 152 MEQ/L 151 MEQ/L Serum Osmolality 308 MOSM/KG Blood Urea Nitrogen 15 MG/DL 15 MG/DL Creatinine 0.73 MG/DL 0.78 MG/DL Random Glucose 124 MG/DL 126 MG/DL Calcium Level 7.6 MG/DL 7.7 MG/DL Potassium Level 3.8 MEQ/L 3.8 MEQ/L Chloride Level 116 MEQ/L 117 MEQ/L Carbon Dioxide Level 29.9 MEQ/L 28.5 MEQ/L Anion Gap 4 MEQ/L 7 MEQ/L Estimat Glomerular Filtration Rate 108 ML/MIN 100 ML/MIN Total Protein 4.9 GM/DL Albumin 1.9 GM/DL Phosphorus Level 2.9 MG/DL Magnesium Level 2.5 MG/DL Alkaline Phosphatase 64 U/L Aspartate Amino Transf (AST/SGOT) 68 U/L Alanine Aminotransferase (ALT/SGPT) 98 U/L Total Bilirubin 0.2 MG/DL Total Creatine Kinase 969 U/L Creatine Kinase MB 2.9 NG/ML Creatine Kinase MB % 0.3 % Microbiology Date/Time Source Procedure Growth Status 07/25/17 08:17 Blood Peripheral Aerobic Blood Culture - Preliminary NO GROWTH IN 2 DAYS Resulted 07/25/17 08:17 Blood Peripheral Anaerobic Blood Culture - Preliminary NO GROWTH IN 2 DAYS Resulted 07/25/17 08:04 Blood Peripheral Aerobic Blood Culture - Preliminary NO GROWTH IN 2 DAYS Resulted 07/25/17 08:04 Blood Peripheral Anaerobic Blood Culture - Preliminary NO GROWTH IN 2 DAYS Resulted 07/26/17 10:50 Cerebral Spinal Fluid Shunt Fluid Acid Fast Stain Pending Received 07/26/17 10:50 Cerebral Spinal Fluid Shunt Fluid Mycobacterial Culture Pending Received 07/26/17 00:31 Cerebral Spinal Fluid Shunt Fluid Fungal Smear - Final NO FUNGAL ELEMENTS SEEN. Resulted 07/26/17 00:31 Cerebral Spinal Fluid Shunt Fluid Fungal Culture Pending Resulted 07/26/17 00:31 Cerebral Spinal Fluid Shunt Fluid Gram Stain - Final Resulted 07/26/17 00:31 Cerebral Spinal Fluid Shunt Fluid CSF Culture - Preliminary NO GROWTH IN 24 HOURS. Resulted 07/25/17 07:45 Sputum Endotracheal Gram Stain - Final Complete 07/25/17 07:45 Sputum Endotracheal Sputum Culture - Final RARE GROWTH NORMAL RESPIRATORY LUBA Complete 07/26/17 14:19 Wound Other Fungal Smear - Final NO FUNGAL ELEMENTS SEEN. Resulted 07/26/17 14:19 Wound Other Fungal Culture Pending Resulted 07/26/17 14:19 Wound Other Acid Fast Stain Pending Received 07/26/17 14:19 Wound Other Mycobacterial Culture Pending Received 07/26/17 14:19 Wound Other Gram Stain - Final Resulted 07/26/17 14:19 Wound Other Wound Culture - Preliminary NO GROWTH IN 24 HOURS. Resulted Imaging Last Impressions Chest X-Ray 07/26/17 0600 Signed Impressions: Service Date/Time: July 03:44 - CONCLUSION: 1. Mild interval improvement in bilateral airspace disease. 2. Left pleural effusion remains. Buck Henry MD Head/Brain Mag Res Venography 07/25/17 0000 Signed Impressions: Service Date/Time: Tuesday, July 25, 2017 19:54 - CONCLUSION: Patent dural sinuses. Lonnie Munguia MD Head CT 07/25/17 0000 Signed Impressions: Service Date/Time: Tuesday, July 25, 2017 20:13 - CONCLUSION: 1. New right frontal ventriculostomy tube in good position. 2. Worsening effacement of basal cisterns and cortical sulci. 3. There is a low density at the periphery of the parietal and occipital lobes concerning for evolving infarcts. These were present on the prior MRI. 4. Low-density seen in the mid and inferior cerebellar hemispheres bilaterally with mass effect on the fourth ventricle. Lonnie Munguia MD Brain MRI 07/25/17 Signed Impressions: Service Date/Time: Tuesday, July 25, 2017 10:37 - CONCLUSION: Worsening brain appearance with developing hydrocephalus which is presumably related to increasing edema in the posterior fossa. See above discussion. Lonnie Lock MD Neck Magnetic Resonance Angiography 07/21/17 Signed Impressions: Service Date/Time: Friday, July 21, 2017 08:40 - CONCLUSION: No acute neck arteriovascular abnormality is identified. There is no significant stenosis within either internal carotid artery. Lonnie Ross MD Head Magnetic Resonance Angiography 07/21/17 Signed Impressions: Service Date/Time: Friday, July 21, 2017 08:40 - CONCLUSION: No acute intracranial vascular abnormality is identified. Lonnie Ross MD Abdomen Ultrasound 07/21/17 Signed Impressions: Service Date/Time: Friday, July 21, 2017 15:47 - CONCLUSION: Cholelithiasis. No gallbladder wall thickening or pericholecystic fluid. Victor Manuel Barros MD Physical Exam CONSTITUTIONAL/GENERAL: This is an obese ederly patient, in no apparent distress. On vent TUBES/LINES/DRAINS: SKIN: No jaundice, rashes, or lesions. Skin temperature appropriate. Not diaphoretic. HEAD: Ventric in place R parietal area with clear CSF Bandages in place EYES: Pupils equal and round and reactive. Extraocular motions intact. No scleral icterus. No injection or drainage. Fundi not examined. ENT: Hearing not tested Nose without bleeding or purulent drainage. Throat without visible erythema, exudates, masses, or lesions. Orally intubated NECK: Trachea midline. Supple, nontender. No palpable thyroid enlargement or nodularity. CARDIOVASCULAR: Regular rate and rhythm without murmurs, gallops, or rubs. No JVD. Peripheral pulses symmetric. RESPIRATORY/CHEST: Symmetric, unlabored respirations. Clear to auscultation. Breath sounds equal bilaterally. No wheezes, rales, or rhonchi. GASTROINTESTINAL: Abdomen soft, non-tender, nondistended. No hepato-splenomegaly , or palpable masses. No guarding. Bowel sounds present. GENITOURINARY: Without palpable bladder distension. Garner catheter in place with clear yellow urine. Prominent scrotum edema MUSCULOSKELETAL: Extremities without clubbing, cyanosis, Severe 4+ soft pitting edema. No joint tenderness or effusion noted. No calf tenderness. No mottling or clubbing. LYMPHATICS: No palpable cervical or supraclavicular adenopathy. NEUROLOGICAL: Unresponsive PSYCHIATRIC: Unable to assess Assessment & Plan Remarks ASbnormal CSF - R/o meningoencephalits overall neither radiological studies nor clinical presentation favours meningoencephalitis - not cw bacterial meni gitis at all after embolic strokes and anoxia the meningoencepahlitis down on diff dx list Acute VDRF ARF 2/2 rhabdo: resolved New fever blood clx, sputum, UA/C+S -dc acyclovir chk AKILAH will follow path obtained today Discussed Condition With Dr Bray family @ b/s Reva Corrales MD July 27, 2017 13:40
--- NOTE | 2017-07-27 14:36 | RADRPT ---
EXAM DATE/TIME: 07/27/2017 13:39 [facility] COMPARISON: No previous studies available for comparison. INDICATIONS : Follow up stroke. RADIATION DOSE: 56.35 CTDIvol (mGy) MEDICAL HISTORY : Hypertension. Chronic obstructive pulmonary disease. SURGICAL HISTORY : None. ENCOUNTER: Subsequent ACUITY: 4 - 6 days PAIN SCALE: Non-responsive LOCATION: cranial TECHNIQUE: Multiple contiguous axial images were obtained of the head. Using automated exposure control and adj ustment of the mA and/or kV according to patient size, radiation dose was kept as low as reasonably a chievable to obtain optimal diagnostic quality images. DICOM format image data is available electro nically for review and comparison. FINDINGS: Comparison is July 25. Ventricular size has decreased since the prior exam. There is a right frontal ve ntriculostomy tube. There is abnormal swelling and increased attenuation in both cerebellar hemispher es and also in the periventricular region and right occipital lobe. These could represent areas of ed gretta or evolving infarction. Swelling of the posterior fossa does efface the fourth ventricle with pro bable mild mass effect on the brainstem. There is previous occipital craniotomy. Mucosal thickening i n the ethmoids, sphenoid and maxillary sinuses. Pansinus mucosal thickening. CONCLUSION: 1. Decrease in ventricular size since July 25. Extensive low attenuation and swelling in both occipital lobes and also in the periventricular region, basal ganglia and focally in the right occipital lobe. Differential diagnosis includes edema or evolving infarcts. There is mass effect on the brainstem an d posterior fossa with effacement of the fourth ventricle. Ananda Messina MD on July 27, 2017 at 14:28 Board Certified Radiologist. This report was verified electronically.
--- NOTE | 2017-07-27 14:49 | HHI.HCPN ---
Reason for visit a. To assist with evaluation and management of symptoms including: pain; encephalopathy; dyspnea b. To assist medical decision maker(s) with: better understanding of current medical conditions; weighing benefits/burdens of medical treatment options; making medical treatment decisions. . Subjective/Interval History Patient underwent decompressive suboccipital craniotomy yesterday . Neurosurgery reports no improvement in neuro status while off sedation earlier this AM. Patient has required intermittent Cardene and levophed. Pt scheduled for f/u CT imaging later today. At time of my visit, patient sedated with fentanyl and propofol. Unable to evaluate for symptoms. Nursing pain level scores --> 0 Tmax 100.0. BPs 110-164 / 48-85 ICP 3-4mm WBC 11.3; Hg 9.5; Na 152; AST 68 ; ALT 98 Alb 1.9; Total CK 969 Path from brain surgery pending. Discussed case with Dr. Corrales who does not feel cerebral edema is due to infectious process. . . . Family/friend interactions and son at bedside. Reviewed current status and events over last 24 hours. Provided with copy of patient's living will. Once again reinforced that surgery was not meant to cure prior issues. It was meant to prevent further damage resulting from the cerbral edema. Potential for meaningful neurological recovery still remains unkown. remains hopeful and stresses how he was always a very "strong" person. . Advance Directives Living Will: Copy in medical record Health Care Surrogate: Copy in medical record Durable Power of Transportation Modeler: Completed, but not made available Advance Directive Specifics Date completed: Living will and healthcare surrogate designation were completed on 09/29/2016. . Health Care Surrogate(s): The healthcare surrogate is the patient's spouse--Coty Weaver . Documented care wishes: The patient's living will is the standard [place] living will. He has initialed only one condition to activate his wishes -- if he has "an end-stage condition." He would not want life prolonging procedures should be diagnosed with such condition. . Objective Vital Signs Date Time Temp Pulse Resp B/P (MAP) Pulse Ox O2 Delivery O2 Flow Rate FiO2 07/27/17 14:11 99 100 07/27/17 12:00 30 07/27/17 12:00 56 07/27/17 12:00 99.5 56 22 134/60 (84) 92 07/27/17 10:00 75 07/27/17 08:00 99.5 56 23 139/60 (86) 91 07/27/17 08:00 30 07/27/17 08:00 59 07/27/17 07:43 92 30 07/27/17 06:00 55 07/27/17 06:00 60 114/48 07/27/17 04:00 40 07/27/17 04:00 60 07/27/17 04:00 100.0 60 23 112/48 (69) 94 07/27/17 03:31 94 30 07/27/17 02:00 64 07/27/17 00:22 94 30 07/27/17 00:00 98.8 74 23 126/85 (99) 94 Automatic Cuff 07/27/17 00:00 40 07/27/17 00:00 74 07/26/17 22:00 73 07/26/17 21:00 64 110/48 07/26/17 20:45 62 114/50 07/26/17 20:29 100 30 07/26/17 20:00 62 07/26/17 20:00 97.6 62 24 128/54 (78) 98 07/26/17 20:00 40 07/26/17 18:30 62 116/60 07/26/17 18:00 63 07/26/17 18:00 63 118/56 07/26/17 17:41 67 127/56 07/26/17 17:40 70 143/68 07/26/17 16:16 93 40 07/26/17 16:00 98.5 84 23 164/72 (102) 93 07/26/17 16:00 75 07/26/17 16:00 40 07/26/17 16:00 84 164/72 07/26/17 15:45 75 155/73 07/26/17 15:30 81 183/89 07/26/17 15:15 82 178/83 07/26/17 15:00 80 183/96 Intake & Output 07/27/17 07/27/17 07:00 19:00 Intake Total 996.5 ml Output Total 809 ml Balance 187.5 ml IV Total 607.5 ml Tube Feeding 269 ml Other 120 ml Output Urine Total 725 ml Drainage Total 84 ml # Bowel Movements 0 . Physical Exam CONSTITUTIONAL/GENERAL: This is an adequately nourished patient, sedated, mechanically ventilated, in a surgical intensive care unit bed. Unresponsive. TUBES/LINES/DRAINS: Orotracheal tube; orogastric tube; SCDs; Garner catheter; peripheral IVs; Left subclavian central line; ICP monitor HEAD: Dressing over craniotomy clean and dry. SKIN: Multiple tattoos. No jaundice, rashes, or lesions. No wounds seen anteriorly. Skin temperature appropriate. Not diaphoretic. EYES: Pupils equal and round. Cannot evaluate extraocular movements. No scleral icterus. No injection or drainage. Fundi not examined. ENT: Unable to assess hearing.. Nose without bleeding or purulent drainage. Throat without visible erythema, exudates, masses, or lesions --though difficult to fully evaluate due to intubations. NECK: Trachea midline. CARDIOVASCULAR: Regular rate and rhythm without murmurs, gallops, or rubs. No JVD. RESPIRATORY/CHEST: Symmetric, unlabored respirations. Breath sounds equal bilaterally. Lungs clear. GASTROINTESTINAL: Abdomen soft, non-tender, slightly distended. No hepato- splenomegaly, or palpable masses. No guarding. Bowel sounds present. GENITOURINARY: Without palpable bladder distension. Scrotal edema present. Garner catheter in place. MUSCULOSKELETAL: Extremities without clubbing, cyanosis. Mild edema in hands. LYMPHATICS: Not examined. NEUROLOGICAL: Sedated. Unresponsive. PSYCHIATRIC: Unable to evaluate due to level of responsiveness. . Diagnostic Tests Laboratory Laboratory Tests Test 07/25/17 04:55 07/25/17 07:50 07/25/17 13:00 07/25/17 14:34 White Blood Count 11.3 TH/MM3 (4.0-11.0) Red Blood Count 3.73 MIL/MM3 (4.50-5.90) Hemoglobin 11.6 GM/DL (13.0-17.0) Hematocrit 34.8 % (39.0-51.0) Mean Corpuscular Volume 93.4 FL (80.0-100.0) Mean Corpuscular Hemoglobin 31.0 PG (27.0-34.0) Mean Corpuscular Hemoglobin Concent 33.2 % (32.0-36.0) Red Cell Distribution Width 13.7 % (11.6-17.2) Platelet Count 288 TH/MM3 (150-450) Mean Platelet Volume 8.2 FL (7.0-11.0) Neutrophils (%) (Auto) 72.0 % (16.0-70.0) Lymphocytes (%) (Auto) 13.7 % (9.0-44.0) Monocytes (%) (Auto) 9.3 % (0.0-8.0) Eosinophils (%) (Auto) 4.6 % (0.0-4.0) Basophils (%) (Auto) 0.4 % (0.0-2.0) Neutrophils # (Auto) 8.1 TH/MM3 (1.8-7.7) Lymphocytes # (Auto) 1.5 TH/MM3 (1.0-4.8) Monocytes # (Auto) 1.0 TH/MM3 (0-0.9) Eosinophils # (Auto) 0.5 TH/MM3 (0-0.4) Basophils # (Auto) 0.0 TH/MM3 (0-0.2) CBC Comment DIFF FINAL Differential Comment Blood Urea Nitrogen 9 MG/DL (7-18) Creatinine 0.68 MG/DL (0.60-1.30) Random Glucose 131 MG/DL (74-106) Total Protein 5.8 GM/DL (6.4-8.2) Albumin 2.2 GM/DL (3.4-5.0) Calcium Level 8.2 MG/DL (8.5-10.1) Phosphorus Level 3.4 MG/DL (2.5-4.9) Magnesium Level 2.3 MG/DL (1.5-2.5) Alkaline Phosphatase 87 U/L (45-117) Aspartate Amino Transf (AST/SGOT) 158 U/L (15-37) Alanine Aminotransferase (ALT/SGPT) 119 U/L (12-78) Total Bilirubin 0.3 MG/DL (0.2-1.0) Sodium Level 143 MEQ/L (136-145) Potassium Level 3.5 MEQ/L (3.5-5.1) Chloride Level 107 MEQ/L (98-107) Carbon Dioxide Level 26.6 MEQ/L (21.0-32.0) Anion Gap 9 MEQ/L (5-15) Estimat Glomerular Filtration Rate 117 ML/MIN (>89) Total Creatine Kinase 3370 U/L (39-308) Creatine Kinase MB 7.2 NG/ML (0.5-3.6) Creatine Kinase MB % 0.2 % (0.0-4.0) Urine Color YELLOW (YELLW/STRAW) Urine Turbidity CLEAR (CLEAR) Urine pH 7.5 (5.0-8.5) Urine Specific [place] 1.017 (1.002-1.035) Urine Protein TRACE mg/dL (NEG-TRACE) Urine Glucose (UA) NEG mg/dL (NEG) Urine Ketones NEG mg/dL (NEG) Urine Occult Blood MOD (NEG) Urine Nitrite NEG (NEG) Urine Bilirubin NEG (NEG) Urine Urobilinogen 4.0 MG/DL (LESS THAN Urine Leukocyte Esterase NEG (NEG) Urine RBC /hpf (0-3) Urine WBC 1 /hpf (0-5) Urine Transitional Epithelial Cells 1 /hpf (NONE) Urine Mucus FEW /lpf (OCC) Microscopic Urinalysis Comment CATH-CULT NOT IND Serum Osmolality 292 MOSM/KG (275-295) Blood Gas Puncture Site RT RADIAL Blood Gas Patient Temperature 98.6 Blood Gas HCO3 27 mmol/L (22-26) Blood Gas Base Excess 2.1 mmol/L (-2-2) Blood Gas Oxygen Saturation 92 % (90-100) Arterial Blood pH 7.38 (7.380-7.420) Arterial Blood Partial Pressure CO2 46 mmHg (38-42) Arterial Blood Partial Pressure O2 76 mmHg (61-120) Arterial Blood Oxygen Content 12.1 Vol % (12.0-20.0) Arterial Blood Carboxyhemoglobin 0.7 % (0-4) Arterial Blood Methemoglobin 1.6 % (0-2) Blood Gas Hemoglobin 9.3 G/DL (12.0-16.0) Oxygen Delivery Device VENT Blood Gas Ventilator Setting PRVC22/500/1.0/+5 Blood Gas Inspired Oxygen 40 % Test 07/25/17 16:13 07/25/17 22:56 07/26/17 00:31 07/26/17 04:10 Sodium Level 141 MEQ/L (136-145) 143 MEQ/L (136-145) 146 MEQ/L (136-145) Serum Osmolality 303 MOSM/KG (275-295) CSF Volume (Tube 1) 2.5 ML CSF Supernatant Color (tube 1) CLEAR (CLEAR) CSF Gross Blood (Tube 1) TRACE (0) CSF WBC (Tube 1) 32 /MM3 (0-10) CSF RBC (Tube 1) 144 /MM3 (NONE) CSF Neutrophils 47 % CSF Lymphocytes 1 % CSF Monocytes 7 % CSF Differential Comment CSF Histiocytes 45 % CSF Glucose 77 MG/DL (40-80) CSF Total Protein 15.8 MG/DL (15.0-45.0) White Blood Count 5.9 TH/MM3 (4.0-11.0) Red Blood Count 3.30 MIL/MM3 (4.50-5.90) Hemoglobin 10.4 GM/DL (13.0-17.0) Hematocrit 30.8 % (39.0-51.0) Mean Corpuscular Volume 93.5 FL (80.0-100.0) Mean Corpuscular Hemoglobin 31.4 PG (27.0-34.0) Mean Corpuscular Hemoglobin Concent 33.6 % (32.0-36.0) Red Cell Distribution Width 13.8 % (11.6-17.2) Platelet Count 294 TH/MM3 (150-450) Mean Platelet Volume 7.6 FL (7.0-11.0) Neutrophils (%) (Auto) 85.8 % (16.0-70.0) Lymphocytes (%) (Auto) 11.4 % (9.0-44.0) Monocytes (%) (Auto) 2.6 % (0.0-8.0) Eosinophils (%) (Auto) 0.0 % (0.0-4.0) Basophils (%) (Auto) 0.2 % (0.0-2.0) Neutrophils # (Auto) 5.1 TH/MM3 (1.8-7.7) Lymphocytes # (Auto) 0.7 TH/MM3 (1.0-4.8) Monocytes # (Auto) 0.2 TH/MM3 (0-0.9) Eosinophils # (Auto) 0.0 TH/MM3 (0-0.4) Basophils # (Auto) 0.0 TH/MM3 (0-0.2) CBC Comment DIFF FINAL Differential Comment Blood Urea Nitrogen 10 MG/DL (7-18) Creatinine 0.67 MG/DL (0.60-1.30) Random Glucose 119 MG/DL (74-106) Total Protein 5.4 GM/DL (6.4-8.2) Albumin 2.1 GM/DL (3.4-5.0) Calcium Level 7.9 MG/DL (8.5-10.1) Phosphorus Level 4.8 MG/DL (2.5-4.9) Magnesium Level 2.4 MG/DL (1.5-2.5) Alkaline Phosphatase 77 U/L (45-117) Aspartate Amino Transf (AST/SGOT) 106 U/L (15-37) Alanine Aminotransferase (ALT/SGPT) 115 U/L (12-78) Total Bilirubin 0.2 MG/DL (0.2-1.0) Potassium Level 4.6 MEQ/L (3.5-5.1) Chloride Level 111 MEQ/L (98-107) Carbon Dioxide Level 28.3 MEQ/L (21.0-32.0) Anion Gap 7 MEQ/L (5-15) Estimat Glomerular Filtration Rate 119 ML/MIN (>89) Total Creatine Kinase 1774 U/L (39-308) Creatine Kinase MB 4.6 NG/ML (0.5-3.6) Creatine Kinase MB % 0.3 % (0.0-4.0) Test 07/26/17 10:50 07/26/17 11:07 07/26/17 14:19 07/26/17 16:55 Herpes Simplex Virus I DNA (PCR) Negative (Negative) Herpes Simplex Virus II DNA (PCR) Negative (Negative) Sodium Level 147 MEQ/L (136-145) White Blood Count 10.9 TH/MM3 (4.0-11.0) Red Blood Count 3.69 MIL/MM3 (4.50-5.90) Hemoglobin 11.6 GM/DL (13.0-17.0) Hematocrit 35.1 % (39.0-51.0) Mean Corpuscular Volume 95.0 FL (80.0-100.0) Mean Corpuscular Hemoglobin 31.4 PG (27.0-34.0) Mean Corpuscular Hemoglobin Concent 33.0 % (32.0-36.0) Red Cell Distribution Width 14.2 % (11.6-17.2) Platelet Count 429 TH/MM3 (150-450) Mean Platelet Volume 7.7 FL (7.0-11.0) Test 07/26/17 17:10 07/27/17 01:30 5/11/18 04:30 07/27/17 11:29 Sodium Level 146 MEQ/L (136-145) 150 MEQ/L (136-145) 152 MEQ/L (136-145) 151 MEQ/L (136-145) Serum Osmolality 308 MOSM/KG (275-295) Blood Urea Nitrogen 15 MG/DL (7-18) 15 MG/DL (7-18) Creatinine 0.73 MG/DL (0.60-1.30) 0.78 MG/DL (0.60-1.30) Random Glucose 124 MG/DL (74-106) 126 MG/DL (74-106) Calcium Level 7.6 MG/DL (8.5-10.1) 7.7 MG/DL (8.5-10.1) Potassium Level 3.8 MEQ/L (3.5-5.1) 3.8 MEQ/L (3.5-5.1) Chloride Level 116 MEQ/L (98-107) 117 MEQ/L (98-107) Carbon Dioxide Level 29.9 MEQ/L (21.0-32.0) 28.5 MEQ/L (21.0-32.0) Anion Gap 4 MEQ/L (5-15) 7 MEQ/L (5-15) Estimat Glomerular Filtration Rate 108 ML/MIN (>89) 100 ML/MIN (>89) White Blood Count 11.3 TH/MM3 (4.0-11.0) Red Blood Count 3.03 MIL/MM3 (4.50-5.90) Hemoglobin 9.5 GM/DL (13.0-17.0) Hematocrit 28.3 % (39.0-51.0) Mean Corpuscular Volume 93.5 FL (80.0-100.0) Mean Corpuscular Hemoglobin 31.4 PG (27.0-34.0) Mean Corpuscular Hemoglobin Concent 33.6 % (32.0-36.0) Red Cell Distribution Width 13.8 % (11.6-17.2) Platelet Count 361 TH/MM3 (150-450) Mean Platelet Volume 7.6 FL (7.0-11.0) Neutrophils (%) (Auto) 78.9 % (16.0-70.0) Lymphocytes (%) (Auto) 10.5 % (9.0-44.0) Monocytes (%) (Auto) 10.4 % (0.0-8.0) Eosinophils (%) (Auto) 0.0 % (0.0-4.0) Basophils (%) (Auto) 0.2 % (0.0-2.0) Neutrophils # (Auto) 8.9 TH/MM3 (1.8-7.7) Lymphocytes # (Auto) 1.2 TH/MM3 (1.0-4.8) Monocytes # (Auto) 1.2 TH/MM3 (0-0.9) Eosinophils # (Auto) 0.0 TH/MM3 (0-0.4) Basophils # (Auto) 0.0 TH/MM3 (0-0.2) CBC Comment DIFF FINAL Differential Comment Total Protein 4.9 GM/DL (6.4-8.2) Albumin 1.9 GM/DL (3.4-5.0) Phosphorus Level 2.9 MG/DL (2.5-4.9) Magnesium Level 2.5 MG/DL (1.5-2.5) Alkaline Phosphatase 64 U/L (45-117) Aspartate Amino Transf (AST/SGOT) 68 U/L (15-37) Alanine Aminotransferase (ALT/SGPT) 98 U/L (12-78) Total Bilirubin 0.2 MG/DL (0.2-1.0) Total Creatine Kinase 969 U/L (39-308) Creatine Kinase MB 2.9 NG/ML (0.5-3.6) Creatine Kinase MB % 0.3 % (0.0-4.0) . Result Diagram: 07/27/17 0430 07/27/17 1129 Microbiology Microbiology Date/Time Source Procedure Growth Status 07/25/17 08:17 Blood Peripheral Aerobic Blood Culture - Preliminary NO GROWTH IN 2 DAYS Resulted 07/25/17 08:17 Blood Peripheral Anaerobic Blood Culture - Preliminary NO GROWTH IN 2 DAYS Resulted 07/25/17 08:04 Blood Peripheral Aerobic Blood Culture - Preliminary NO GROWTH IN 2 DAYS Resulted 07/25/17 08:04 Blood Peripheral Anaerobic Blood Culture - Preliminary NO GROWTH IN 2 DAYS Resulted 07/26/17 10:50 Cerebral Spinal Fluid Shunt Fluid Acid Fast Stain - Final NO ACID FAST BACILLI SEEN Resulted 07/26/17 10:50 Cerebral Spinal Fluid Shunt Fluid Mycobacterial Culture Pending Resulted 07/26/17 00:31 Cerebral Spinal Fluid Shunt Fluid Fungal Smear - Final NO FUNGAL ELEMENTS SEEN. Resulted 07/26/17 00:31 Cerebral Spinal Fluid Shunt Fluid Fungal Culture Pending Resulted 07/26/17 00:31 Cerebral Spinal Fluid Shunt Fluid Gram Stain - Final Resulted 07/26/17 00:31 Cerebral Spinal Fluid Shunt Fluid CSF Culture - Preliminary NO GROWTH IN 24 HOURS. Resulted 07/25/17 07:45 Sputum Endotracheal Gram Stain - Final Complete 07/25/17 07:45 Sputum Endotracheal Sputum Culture - Final RARE GROWTH NORMAL RESPIRATORY LUBA Complete 07/26/17 14:19 Wound Other Fungal Smear - Final NO FUNGAL ELEMENTS SEEN. Resulted 07/26/17 14:19 Wound Other Fungal Culture Pending Resulted 07/26/17 14:19 Wound Other Acid Fast Stain - Final NO ACID FAST BACILLI SEEN Resulted 07/26/17 14:19 Wound Other Mycobacterial Culture Pending Resulted 07/26/17 14:19 Wound Other Gram Stain - Final Resulted 07/26/17 14:19 Wound Other Wound Culture - Preliminary NO GROWTH IN 24 HOURS. Resulted . Imaging Last Impressions Chest X-Ray 07/26/17 0600 Signed Impressions: Service Date/Time: July 03:44 - CONCLUSION: 1. Mild interval improvement in bilateral airspace disease. 2. Left pleural effusion remains. Buck Henry MD Head/Brain Mag Res Venography 07/25/17 0000 Signed Impressions: Service Date/Time: Tuesday, July 25, 2017 19:54 - CONCLUSION: Patent dural sinuses. Lonnie Munguia MD Head CT 07/25/17 0000 Signed Impressions: Service Date/Time: Tuesday, July 25, 2017 20:13 - CONCLUSION: 1. New right frontal ventriculostomy tube in good position. 2. Worsening effacement of basal cisterns and cortical sulci. 3. There is a low density at the periphery of the parietal and occipital lobes concerning for evolving infarcts. These were present on the prior MRI. 4. Low-density seen in the mid and inferior cerebellar hemispheres bilaterally with mass effect on the fourth ventricle. Lonnie Munguia MD Brain MRI 07/25/17 0000 Signed Impressions: Service Date/Time: Tuesday, July 25, 2017 10:37 - CONCLUSION: Worsening brain appearance with developing hydrocephalus which is presumably related to increasing edema in the posterior fossa. See above discussion. Lonnie Lock MD Neck Magnetic Resonance Angiography 07/21/17 0000 Signed Impressions: Service Date/Time: Friday, July 21, 2017 08:40 - CONCLUSION: No acute neck arteriovascular abnormality is identified. There is no significant stenosis within either internal carotid artery. Lonnie Ross MD Head Magnetic Resonance Angiography 07/21/17 0000 Signed Impressions: Service Date/Time: Friday, July 21, 2017 08:40 - CONCLUSION: No acute intracranial vascular abnormality is identified. Lonnie Ross MD Abdomen Ultrasound 07/21/17 0000 Signed Impressions: Service Date/Time: Friday, July 21, 2017 15:47 - CONCLUSION: Cholelithiasis. No gallbladder wall thickening or pericholecystic fluid. Victor Manuel Barros MD . Procedures * Intubation/mechanical ventilation * Ventriculostomy drain placement * Central line placement * Decompressive suboccipiatl craniotomy 07/26/17 . . Assessment and Plan Disease Oriented Problem List: (1) Stroke Comment: Evolving with obstructive hydrocephalus and cerebral edema requiring emergent ventriculostomy placement on 07/25/17 . (2) Acute respiratory failure (3) Seizure Comment: EEG negative on 07/25/17 but bull riveter felt patient had seizure activity. Would not be surprising given level of cerebral edema. . (4) Failed back syndrome (5) COPD (chronic obstructive pulmonary disease) (6) Hyperkalemia (7) Acute kidney injury (8) Rhabdomyolysis (9) Tobacco abuse disorder (10) Chronic, continuous use of opioids (11) Depression (12) Hypertension (13) Hyperlipidemia Symptom Scale: (1) Pain 0-10 Scale: Unable to quantify Comment: Patient has long history of chronic pain from his back for which he has undergone multiple surgeries. Has been on chronic opioids for many years. Additional sources of pain might now also include recent craniotomy; cerebral edema; prisca hole placement; prolonged bedbound status; Garner catheter; vascular access catheters; restraints; orotracheal intubation; orogastric intubation. . (2) Encephalopathy 0-10 Scale: Unable to quantify Comment: Encephalopathy may be multifactorial. It appears he has had multiple strokes, cerebral edema, acute kidney injury, and electrolyte abnormalities all of which which are likely contributing to encephalopathy. . . (3) Dyspnea 0-10 Scale: Unable to quantify Comment: Currently managed with mechanical ventilation. . Pertinent Non-Medical Issues Psychosocial: Patient is well supported locally by his spouse. He has a biological son who lives in [place], [place], but who is here now. Spiritual: Orthodox and spirituality have not played an important role in his life. Legal: Patient has a living will and designation of healthcare surrogate currently scanned into our electronic medical record. His is his surrogate. Ethical issues impacting care: Patient is currently incapacitated to make his own healthcare decisions. It is unclear if/when he will regain capacity to do so. . Important Contacts * Coty Weaver (spouse and health care surrogate) [phone] and * Blake Castillo (son) [phone] . Prognosis The patient's prognosis is now much worse with the obstructive hydrocephalus and cerebral edema requiring emergent ventriculostomy placement and then decompressive craniotomy. Should he survive the hospitalization, chances of meaningful recovery are much less. . Code Status: Full Code Plan == CODE STATUS : FULL CODE == Patient is currently incapacitated to make his own healthcare decisions. It is becoming increasingly unlikely that he will regain capacity to make his own decisions. == Decision Making: His spouse--Coty Weaver --is his designated healthcare surrogate. == Goals of medical treatment: Currently, the goals are quite aggressive including full resuscitation. Health care surrogate is aware of his living will but feel strongly that the patient would want to continue to fight hard at this time. She wants to give him a chance to see if he is able to gain some neurological function before considering withdrawal of life support. == Symptoms (see symptom descriptions above): * Pain: Patient has multiple acute sources of pain as noted above, on top of his chronic back pain. He is currently sedated; pain appears adequately controlled. Current regimen appears to be effective. No further recommendations at this time. * Dyspnea: Patient is a long-term smoker and now unable to protect his airway. Dyspnea is currently being managed by mechanical ventilation. Was tolerating CPAP prior to his apparent seizure and subsequent craniotomy. Anticipate need for ongoing full vent support, and tracheostomy much more likely needed if family would wish aggressive goals. No further recommendations at this time. * Agitation: Agitation is probably from a multifactorial delirium. Patient had been managed with dexmedetomidine in MICU. Now sedated with propofol. Await to see if agitation increases or decreases should responsiveness return. * Encephalopathy multifactorial.: We will continue to address the fixable contributors such as metabolic issues and possible infection. Psychoactive drugs present in urine tox screen have probably all cleared by now. Main source of encephalopathy now the stroke and associated edema. == Palliative care will continue to follow to assist with symptom management and to further clarify goals of medical treatment as the clinical course evolves. . . Paco Plata MD July 27, 2017 14:49
[2017-07-27] MEDS ORDERED: ROCURONIUM INJ 50 MG/5 ML VIAL ONE (16:48)
--- NOTE | 2017-07-27 17:52 | PD.PROCEDR ---
Procedure Note Procedure Percutaneous Dilation Tracheostomy Tube Placement Diagnosis: Chronic respiratory failure Indications: Chronic respiratory failure with failure to wean from mechanical ventilation Anesthesia: propofol infusion, fentanyl infusion Neuromuscular Blockade: Rocuronium 100 mg IV Anesthesia was provided by the bedside RN Description of the Procedure: The patient was sedated and paralyzed. The patient was positioned in the supine position with a chest roll. The patient's neck was slightly extended. Landmarks were palpated and the anatomy of the anterior neck was deemed normal. A time out procedure was performed. The patient was placed on a volume control mode of ventilation, on 100% FiO2. The patient was prepped and draped sterilely. A bronchoscope was inserted into the endotracheal tube for endoscopic guidance (see separate bronchoscopy procedure note). After negative aspiration, 1% lidocaine with 1:100k epinephrine was injected subcutaneously in the midline neck using a 21g needle for local anesthesia. An approximately 2cm skin incision was made using a #15 blade. The cricoid cartilage, thyroid tissue , and tracheal rings were palpated in the midline. Under direct bronchoscopic guidance, the cuff of the endotracheal tube was deflated and the endotracheal tube was retracted to a level above the level of the skin incision. At this point, a 15g introducer needle/catheter was advanced midline under negative aspiration with saline filled syringe until bubbles were seen and the needle and catheter were visualized in the lumen of the trachea. The needle was withdrawn leaving the catheter in place. A 0.052 in diameter J-shaped guidewire was advanced through the catheter into the lumen of the trachea, under direct bronchoscopic visualization. Using a modified Seldinger technique , a 14 Fr, 4.5 cm introducer dilator was used, followed by a Blue Rhino Percutaneous Tracheostomy Dilator, and finally a 28 Fr tracheostomy loading catheter with 8.0 Cuffed Shiley tracheostomy tube. The loading catheter and guidewire were removed and the tracheostomy tube was confirmed in the lumen of the trachea with bronchoscopy, end-tidal CO2, and returning volumes on the ventilator. The tracheostomy was sewn to the skin with interrupted 2.0 Prolene sutures, and a tracheostomy tie was applied to the skin. There were no immediate complications. There was minimal EBL. A chest x-ray has been ordered. Steel Sash Erector: Nawaf Rose MD I personally performed the procedure. Paulo Boswell MD July 27, 2017 17:52
--- NOTE | 2017-07-27 18:00 | PD.PROCEDR ---
Procedure Note Procedure Diagnosis: Hypoxemic respiratory failure, acute Operation: Therapeutic flexible bronchoscopy Procedure: Timeout performed and patient properly identified. The patient is intubated through the orotracheal route and on mechanical ventilation at 20 breaths per minute. The usual ICU monitoring devices are in place. Through the indwelling orotracheal tube using a side-port in the ventilatory circuit the bronchoscope was delivered into the tracheobronchial tree. The mucosa of the trach is trachea and bronchus was clean but there was a large amount of thick white inspissated sputum and basilar bronchi on the left. These were suctioned clean. Branching anatomy was anatomically normal. The remainder of the bronchoscopy was normal. The orotracheal tube in the bronchoscope were then removed together up to the level of the cricoid cartilage. This position was used to visualize placement of the percutaneous tracheostomy as dictated by a separate team. When inserted, the bronchoscope was delivered through the new tracheostomy tube and confirmed correct position of the new tube in the mid trachea. Mechanical ventilation was rapidly converted to the new tracheostomy tube and full tidal volumes were returned. End-tidal CO2 monitoring confirmed function. Oxygen saturation was maintained at greater than 95% throughout the procedure. Manuel Rose MD July 27, 2017 18:00
[2017-07-27 18:23] LABS: BILIRUBIN, URINE NEG (NEG); BLOOD, URINE MOD (NEG); GLUCOSE,URINE NEG (NEG); KETONE, URINE NEG (NEG); MUCUS URINE FEW /lpf (OCC); NITRITE,URINE NEG (NEG); SQUAMOUS EPITHELIAL CELL URINE <1 /hpf (0-5); URINE COLOR YELLOW (YELLW/STRAW); URINE LEUKOCYTE ESTERASE NEG (NEG)
--- NOTE | 2017-07-27 18:58 | RADRPT ---
EXAM DATE/TIME: 07/27/2017 18:23 [facility] COMPARISON: CHEST SINGLE AP, July 26, 2017, 3:44. INDICATIONS : Post tracheostomy. MEDICAL HISTORY : Hypertension. Diabetes mellitus type II. SURGICAL HISTORY : Colon resection. Fusion, cervical ENCOUNTER: Initial ACUITY: 4 - 6 days PAIN SCORE: Non-responsive. LOCATION: Bilateral chest FINDINGS: A single portable frontal view of the chest shows interval placement of a tracheostomy tube which is in good position. The nasogastric tube tip courses off the inferior margin of the film. A left pleura l effusion and bilateral lower lobe infiltrates are stable. Right lung is clear. Heart is normal in s ize. Cervical spinal fusion plate. CONCLUSION: 1. Tracheostomy tube in good position. 2. Unchanged left effusion and bilateral lower lobe infiltrates. Oumar Bray Jr., MD on July 27, 2017 at 18:54 Board Certified Radiologist. This report was verified electronically.
--- NOTE | 2017-07-27 19:08 | RADRPT ---
EXAM DATE/TIME: 07/27/2017 18:37 [facility] COMPARISON: No previous studies available for comparison. INDICATIONS : Nasogastric tube placement. MEDICAL HISTORY : Hypertension. Diabetes mellitus type II. SURGICAL HISTORY : Colon resection. Fusion, cervical ENCOUNTER: Initial ACUITY: 4 - 6 days PAIN SCORE: Non-responsive. LOCATION: Abdomen FINDINGS: A single portable frontal view of the upper abdomen shows a nasogastric tube coiled in the stomach wi th the tip coursing back through the GE junction terminating in the lower thoracic esophagus. No dila jihan loops of bowel. Small left effusion suspected. Orthopedic hardware within the lower lumbar spine. CONCLUSION: Nasogastric tube coiled in the stomach with the tip coursing back through the GE junction and termina ting in the lower thoracic esophagus. Oumar Bray Jr., MD on July 27, 2017 at 19:04 Board Certified Radiologist. This report was verified electronically.
[2017-07-27] MEDS: niCARdipine INJ 50 MG in SODIUM CHLORID 0.9% 500 ML INJ 480 ML IV PRN (21:45)
--- NOTE | 2017-07-27 21:54 | RADRPT ---
EXAM DATE/TIME: 07/27/2017 20:37 [facility] COMPARISON: ABDOMEN SINGLE VIEW, July 27, 2017, 18:37. INDICATIONS : Confirm NG tube placement. MEDICAL HISTORY : Hypertension. Diabetes mellitus type II. SURGICAL HISTORY : Colon resection. Fusion, cervical ENCOUNTER: Subsequent ACUITY: 1 day PAIN SCORE: Non-responsive. LOCATION: Abdomen. FINDINGS: A single portable frontal view of the upper abdomen shows a nasogastric tube coiled in the lower thor acic esophagus. CONCLUSION: NG tube coiled in the lower thoracic esophagus. Oumar Bray Jr., MD on July 27, 2017 at 21:51 Board Certified Radiologist. This report was verified electronically.
[2017-07-28] VITALS (17 sets, daily range): BP systolic 118–157; BP diastolic 59–72; PULSE 52–78; RESP 22–25; TEMP 98.7–98.9; O2SAT 94–100
[2017-07-28] MEDS: INSULIN ASPART SUPPLEMENTAL SCALE SQ SCH ×4 (00:26→19:19)
[2017-07-28] MEDS: 3% SALINE INJ 500 ML IV SCH (00:33)
[2017-07-28] MEDS: CHLORHEXIDINE GLUCONATE 2 % 1 PACK (2 CLOTHS) TOP SCH (03:29)
[2017-07-28] MEDS: PROPOFOL 1000 MG/100 ML INJ 100 ML IV PRN ×5 (03:54→23:45)
[2017-07-28 04:47] LABS: AUTOMATED NEUTROPHIL # 6.2 TH/MM3 (1.8-7.7); BASOPHIL % 0.2 % (0.0-2.0); HEMATOCRIT 28.6 % (39.0-51.0); HEMOGLOBIN 9.7 GM/DL (13.0-17.0); LYMPH % 16.3 % (9.0-44.0); LYMPHOCYTE # 1.4 TH/MM3 (1.0-4.8); MEAN CELL VOLUME 94.2 FL (80.0-100.0); MEAN CORPUSCULAR HEMOGLOBIN 31.9 PG (27.0-34.0); MEAN CORPUSCULAR HGB CONC 33.9 % (32.0-36.0); MEAN PLATELET VOLUME 7.4 FL (7.0-11.0); MONO % 13.6 % (0.0-8.0); MONOCYTE # 1.2 TH/MM3 (0-0.9); NEUT % 69.9 % (16.0-70.0); PLATELET COUNT 367 TH/MM3 (150-450); RED BLOOD COUNT 3.04 MIL/MM3 (4.50-5.90); RED CELL DISTRIBUTION WIDTH 13.8 % (11.6-17.2); WHITE BLOOD COUNT 8.9 TH/MM3 (4.0-11.0)
[2017-07-28 05:12] LABS: ALBUMIN 2.1 GM/DL (3.4-5.0); AST (GOT) 56 U/L (15-37); BICARBONATE 29.2 MEQ/L (21.0-32.0); BLOOD UREA NITROGEN 23 MG/DL (7-18); CALCIUM 7.5 MG/DL (8.5-10.1); CHLORIDE 121 MEQ/L (98-107); CREATININE 0.83 MG/DL (0.60-1.30); GLOMERULAR FILTRATION RATE 93 ML/MIN (>89); GLUCOSE,RANDOM 122 MG/DL (74-106); MAGNESIUM 2.6 MG/DL (1.5-2.5); SODIUM (NA) 154 MEQ/L (136-145)
[2017-07-28 05:13] LABS: ALT (GPT) 105 U/L (12-78); PHOSPHORUS 2.8 MG/DL (2.5-4.9)
[2017-07-28 05:15] LABS: ALKALINE PHOSPHATASE 63 U/L (45-117); TOTAL BILIRUBIN ADULT 0.1 MG/DL (0.2-1.0); TOTAL PROTEIN 4.9 GM/DL (6.4-8.2)
[2017-07-28] MEDS: fentaNYL DRIP 250 ML IV PRN ×2 (05:20→23:03)
[2017-07-28] MEDS: methylPREDNISolone SO SUCC INJ 1,000 MG in SODIUM CHLORIDE 0.9% INJ 100 ML IV SCH (06:19)
--- NOTE | 2017-07-28 07:35 | HHI.CCPN ---
Subjective Remarks/Hospital Course This is a 66-year-old male. Date of admission 07/20/2017. Past medical history includes hypertension, hyperlipidemia, COPD with ongoing tobacco abuse, peptic ulcer disease and anxiety. He also has history of lumbar stenosis, degenerative joint disease of the back and cervical spine. He presents to [facility] with the following history. 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 According to his at bedside, patient is drug tested. Patient returned home from work on Sunday after his 30 day work schedule. Patient was changing the tire of a bike friend yesterday. Patient returned home in no acute distress. Today, patient was tired and was sleeping all day. Initially patient had similar symptoms at lunch. When the attempted to wake him up later this evening patient be was nonresponsive with a weak pulse. She attempted to use ammonia without response. At that time EMS was called and patient was transferred to [facility]. Patient was noted to be an acute change with a creatinine of 3.8. Baseline is normal. Potassium is 7.4 without EKG changes. Patient received bicarbonate, insulin/D50, calcium and Kayexalate in the ED. Repeat potassium 3 hours. Patient is making urine and appears concentrated. UA is pending. Patient leukocytosis 13,000. CPK was 5000. Lactic acid was 2.6. Urine drug screen revealed positive for opiates, amphetamines, benzodiazepines, THC and cocaine. Head CT is currently pending. Due to altered mental status patient was admitted after receiving 20 mg etomidate and 100 mg succinylcholine by ED physician. Patient also received 4 mg of midazolam and after which patient became hypotensive is currently receiving 3 L normal saline wide open. Head CT is currently pending. Patient received clindamycin along with piperacillin/ tazobactam in the ED. 07/21: Overnight the patient required to protamine infusion low-dose currently being weaned off. The patient continues on fentanyl and propofol infusion for ventilator synchrony. Patient's undergoing MRI evaluation results pending. The patient was noted to have significant elevation in creatinine kinase the patient is bolused 1 L IV fluids increase in normal saline 200 cc/hr. Lactic acid downtrending will continue to trend creatinine noted to be decreasing. 07/22: Currently afebrile. Off all vasopressors. We will switch to LR at 200 cc an hour. Recheck BMP this afternoon. Moving all 4 x-rays spontaneously right upper extremity less. Opens eyes but not following commands. Positive gag and corneal reflex. Subjective: 07/23: Currently on dexmedetomidine drip at 0.7 mg/kg/h. Minimal response to distinguish. Will hold at the present time and reassess neurological condition. EEG showed no epileptiform activity. Tolerating tube feeding. No bowel movement since admission. Currently afebrile. 07/24: Per nursing staff patient was off sedation over the night and he woke up and followed some simple commands, but due to agitation, hypertension and tachycardia patient was restarted on sedation. He is currently on Precedex at 1 , tolerating CPAP, sedated. T-max of 99. I/O 3029/1451. 07/25: No events over the night. This morning while attempting CPAP trial patient became rigid, unresponsive, with gaze deviation, tachypneic tachycardic and hypertensive, suggesting seizure activity. Patient was immediately given Ativan 2 mg 1 with resolution of episode. Neurology was contacted and plan for EEG and CT head as well as propofol infusion. No family present at bedside. T-max of 100.7 over the night. Urine output 2300 mL's over the last 24 hours. 07/26: EVD placed yesterday for declining mental status with hydrocephalus and severe cerebellar edema. this AM, extensor posturing. supratentorial ICPs controlled, but cerebellar edema persists. discussed with Dr. Roman: csf could be consistent with encephalitis. d/w Dr. Barrow: will need posterior fossa decompression. 07/27: no improvements in mental status. s/p suboccipital crani yesterday. remains intermittently on cardene and levophed to maintain cpp. ICP controlled. brain biopsies pending. 07/28: Osmolality suitably concentrated. ICP well controlled. Maintaining head up position. On attempted CPAP trial patient has 22nd periods of apnea. Unstable neurological status we will not stress him with extended spontaneous breathing trials. Objective Vital Signs Date Time Temp Pulse Resp B/P (MAP) Pulse Ox O2 Delivery O2 Flow Rate FiO2 07/28/17 06:00 53 07/28/17 04:07 97 40 07/28/17 04:00 98.7 22 136/62 (86) Intake and Output 07/28/17 07/28/17 07/29/17 08:00 16:00 00:00 Intake Total 1081 ml Output Total 794 ml Balance 287 ml Result Diagram: 07/28/17 0410 07/28/17 0410 Other Results Microbiology Date/Time Source Procedure Growth Status 07/25/17 07:45 Sputum Endotracheal Gram Stain - Final Complete 07/25/17 07:45 Sputum Endotracheal Sputum Culture - Final RARE GROWTH NORMAL RESPIRATORY LUBA Complete Laboratory Tests Test 07/27/17 18:48 Blood Gas Puncture Site LT RADIAL Blood Gas Patient Temperature 98.6 Blood Gas HCO3 28 mmol/L (22-26) Blood Gas Base Excess 3.6 mmol/L (-2-2) Blood Gas Oxygen Saturation 90 % (90-100) Arterial Blood pH 7.38 (7.380-7.420) Arterial Blood Partial Pressure CO2 50 mmHg (38-42) Arterial Blood Partial Pressure O2 70 mmHg (61-120) Arterial Blood Oxygen Content 13.5 Vol % (12.0-20.0) Arterial Blood Carboxyhemoglobin 0.8 % (0-4) Arterial Blood Methemoglobin 1.5 % (0-2) Blood Gas Hemoglobin 10.6 G/DL (12.0-16.0) Oxygen Delivery Device VENTILATOR Blood Gas Ventilator Setting PRVC/AC Blood Gas Inspired Oxygen 40 % Imaging Last 24 hours Impressions Chest X-Ray 07/24/17 0600 Signed Impressions: Service Date/Time: Monday, July 24, 2017 03:41 - CONCLUSION: Patchy diffuse interstitial prominence and pulmonary vascular prominence unchanged. Ankur Shields MD Last Impressions Chest X-Ray 07/23/17 0600 Signed Impressions: Service Date/Time: Sunday, July 23, 2017 04:10 - CONCLUSION: Lungs grossly clear. Tubes and catheter in good position. Ankur Shields MD Neck Magnetic Resonance Angiography 07/21/17 0000 Signed Impressions: Service Date/Time: Friday, July 21, 2017 08:40 - CONCLUSION: No acute neck arteriovascular abnormality is identified. There is no significant stenosis within either internal carotid artery. Lonnie Ross MD Head Magnetic Resonance Angiography 07/21/17 0000 Signed Impressions: Service Date/Time: Friday, July 21, 2017 08:40 - CONCLUSION: No acute intracranial vascular abnormality is identified. Lonnie Ross MD Brain MRI 07/21/17 0000 Signed Impressions: Service Date/Time: Friday, July 21, 2017 08:40 - CONCLUSION: Multifocal areas of restricted diffusion/recent ischemia within the centrum semiovale bilaterally, bilateral occipital lobes, bilateral basal ganglia, bilateral temporal lobes, and bilateral cerebellar hemispheres. Findings could be related to global anoxic event or less likely embolic phenomenon. Lonnei Ross MD Abdomen Ultrasound 07/21/17 0000 Signed Impressions: Service Date/Time: Friday, July 21, 2017 15:47 - CONCLUSION: Cholelithiasis. No gallbladder wall thickening or pericholecystic fluid. Victor Manuel Barros MD Head CT 07/20/175 Signed Impressions: Service Date/Time: Friday, July 21, 2017 00:53 - CONCLUSION: Abnormal brain appearance. Recommend MRI for further evaluation Lonnie Lock MD Objective Remarks General - middle-aged gentleman, intubated, ill-appearing, unresponsive HEENT - pupils equal, dilated, reactive, sclerae anicteric, neck supple, no nuchal rigidity, neck veins not distended. CV - bradycardic rate, regular rhythm. sinus. Chest - equal chest rise. full mechanical support. PRVC. fio2 45%. peep 5. Abdomen - soft, non-tender, non-distended, no guarding. Bowel sounds active. Skin - no rashes, no cyanosis, multiple tattoos bilateral upper extremities and thorax Extremities - warm and well perfused, no edema, + peripheral pulses, no clubbing Neuro - intubated via tracheostomy, off sedation, unresponsive, pupils equal and reactive, extensor posturing. Apnea episodes on spontaneous breathing. A/P Assessment and Plan Assessment: 66yM with acute encephalopathy and severe cerebellar edema of unclear etiology. very critically ill with ongoing life-threatening malignant cerebral edema in the posterior fossa. s/p suboccipital crani for decompression 07/26 and brain biopsies. continue hyperosmolar therapy and supportive care. has been greater than a week on full mechanical ventilation, and I do not see his mental status improving to the point of extubation within the next week or more. will likely require tracheostomy to progress his care. 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 Discussed with neurology and neurosurgery hyperosmolar therapy serial sodiums, osms Hold 3% nacl at 30cc/hr, osmolality 155. CT brain 07/21 There is patchy mild diminished attenuation in centrum semi-ovale bilaterally. There is mild heterogeneous diminished density in the genu region of internal capsules and globus pallidus bilaterally. There is vague diminished density in the cerebellar hemispheres bilaterally. There is no evidence of intracranial mass or hemorrhage. There is no abnormal extra-axial fluid accumulation or shift present. 07/21 MRI brain-Multifocal areas of restricted diffusion/recent ischemia within the centrum semiovale bilaterally, bilateral occipital lobes, bilateral basal ganglia, bilateral temporal lobes, and bilateral cerebellar hemispheres. Findings could be related to global anoxic event or less likely embolic phenomenon. 07/21 EEG revealed no epileptic activity 07/21-MRA brain/neck -no acute findings UDS + opiates, amphetamines, benzodiazepines, THC and cocaine CSF studies pending. brain biopsies pending EVD placed 07/25 by [facility]. CV: History of essential hypertension Hyperlipidemia Lactic acidosis -resolved Sinus bradycardia- secondary to elevated ICP Holding valsartan 320 mg p.o. daily due to hypotension/acute kidney injury Holding rosuvastatin 10 mg p.o. q. Sunday/Sunday/Sunday due to elevated LFTs. Resume when clinically indicated. holding amlodipine TTE results reviewed, LV size normal, EF of 55%. Levophed for cerebral perfusion pressure goal > 75 mmHg. Resp: Acute hypoxemic and hypercarbic respiratory failure Tobacco use disorder Continue PSYCHIATRIC Ventilator bundle Albuterol/ipratropium aerosols every 6 hours with albuterol aerosol every 2 hours as needed dyspnea budesonide 0.5/2 1 inhalation twice daily since on budesonide/formoterol 160/ 4.5 1 puff twice daily at home along with albuterol inhaler twice daily no weaning of mechanical ventilation until mental status and ICP improves wean fio2 for goal spo2 > 90% hob elevated Tracheostomy yesterday well tolerated GI: Elevated transaminases -slowly trending down Rhabdomyolysis -improving, urine output is adequate, CPK trending down Cholelithiasis CK levels-5000->04450->20K --> 5930 --> 3370 07/21 Liver ultrasound revealed cholelithiasis Hepatitis panel-negative Tube feeding with Neutra hep goal 45 cc an hour Lansoprazole for GI prophylaxis Docusate/senna 1 tablet twice daily for bowel regimen New gastric tube placed through the nose : Adler catheter has been placed for accurate I's and O's in a critically ill patient keep adler today. Endo: Sliding scale insulin with NovoLog with Accu-Cheks every 6 hours to maintain euglycemia/low regimen Hemoglobin A1c documented at 6.1 Renal: Acute kidney injury -resolved Rhabdomyolysis -improving Volume overload -patient is more than 10 L positive since admission saline lock NS ivf lasix 20mg iv x 1. Monitor urine output Accurate I's and O's Renal ultrasound revealed no hydronephrosis bilaterally 07/21 Urine eosinophils negative. Avoid nephrotoxic drugs Trend CPK Heme: Normocytic anemia Monitor CBC daily. Follow trend hold SQH ID: Received piperacillin/tazobactam and clindamycin ED for possible aspiration Empiric antibiotics-piperacillin/tazobactam, azithromycin and vancomycin Blood cultures 2, UA, sputum 07/21 all pending/no growth to date Strep pneumo, Legionella urine antigens-negative FEN: Hypophosphatemia -resolved Electrolyte protocol MSK: History of multiple lumbar/cervical spine surgeries PT evaluate and treat Access 07/25: left SC TLC 07/26: right radial art line adlre 07/25 EVD Prophylaxis -GI -lansoprazole -DVT -SCD/ Heparin SQ Overall impression: This gentleman remains critically ill with a pronounced neurologic injury. Early tracheostomy will hopefully allow us to eliminate sedation and better assess his neurological function. Osmolality is acceptably concentrated and we will hold hypertonic saline for now. Watch sodium trend closely. Critical care time 40 minutes aside from procedures. Manuel Rose MD July 28, 2017 07:35
[2017-07-28] MEDS: LACTULOSE SYRUP 20 GM/30 ML CUP PO SCH (08:05)
[2017-07-28] MEDS: POLYETHYLENE GLYCOL 17 GM PKG PO SCH ×2 (08:05→21:56)
[2017-07-28] MEDS: ARTIFICIAL TEARS OPTH SOLN 15 ML BTL EACH EYE SCH ×3 (08:20→17:39)
[2017-07-28] MEDS: CHLORHEXIDINE 0.12% (ORAL KIT) 15 ML CUP MT SCH ×2 (08:20→20:00)
[2017-07-28] MEDS: FAMOTIDINE 20 MG TAB PO SCH ×2 (08:21→21:56)
[2017-07-28] MEDS: SODIUM CHLORIDE 0.9% FLUSH 10 ML FLUSH IV FLUSH SCH ×2 (08:21→21:56)
[2017-07-28] MEDS: DOCUSATE SODIUM 50 MG/SENNA 8.6 MG TAB PO SCH ×2 (08:21→21:56)
[2017-07-28] MEDS: RESP: ALBUTEROL 2.5 MG/3 ML NEB (PRN) INH (08:56)
[2017-07-28] MEDS: RESP: BUDESONIDE 0.5 MG/2 ML NEB NEB SCH ×2 (08:56→21:07)
[2017-07-28] MEDS: levETIRAcetam INJ 750 MG in SODIUM CHLORIDE 0.9% INJ 100 ML IV SCH ×2 (09:20→21:56)
--- NOTE | 2017-07-28 11:24 | HHI.PR ---
Subjective Remarks cross coverage mri on hold as not wanting pt flat. eeg being completed-no sz seen only slow. ct diffuse edema sedated Objective Vital Signs Date Time Temp Pulse Resp B/P (MAP) Pulse Ox O2 Delivery O2 Flow Rate FiO2 07/28/17 09:05 40 07/28/17 09:01 97 40 07/28/17 06:00 53 07/28/17 04:07 97 40 07/28/17 04:00 40 07/28/17 04:00 98.7 60 22 136/62 (86) 100 07/28/17 04:00 60 07/28/17 02:00 52 07/28/17 00:14 97 40 07/28/17 00:00 98.7 54 22 122/60 (80) 97 07/28/17 00:00 40 07/28/17 00:00 54 07/27/17 22:00 58 07/27/17 21:45 60 141/64 07/27/17 20:00 99.0 64 22 143/65 (91) 95 Arterial Line 07/27/17 20:00 64 07/27/17 20:00 40 07/27/17 18:00 70 07/27/17 17:58 100 100 07/27/17 16:22 93 30 07/27/17 16:00 70 26 134/64 (87) 97 07/27/17 16:00 30 07/27/17 16:00 56 07/27/17 14:11 99 100 07/27/17 14:00 58 07/27/17 12:00 30 07/27/17 12:00 56 07/27/17 12:00 99.5 56 22 134/60 (84) 92 I/O 07/27/17 07/27/17 07/27/17 07/28/17 07/28/17 07/28/17 07:00 15:00 23:00 07:00 15:00 23:00 Intake Total 789 ml 1327 ml 1181 ml Output Total 809 ml 1410 ml 794 ml Balance -20 ml -83 ml 387 ml IV Total 400 ml 700 ml 950 ml Tube Feeding 269 ml 377 ml 231 ml Other 120 ml 250 ml Output Urine Total 725 ml 1300 ml 700 ml Drainage Total 84 ml 110 ml 94 ml # Bowel Movements 0 1 1 Result Diagram: 07/28/17 0410 07/28/[address] diffuse edema mri pending on hold today. Objective Remarks sedated pp pupils grimaces to pain and tried to localize with right ue. does not follow any commands. Assessment and Plan Assessment and Plan eeg do mri tomorrow if able . Lilibeth Dupont MD July 28, 2017 11:23
--- NOTE | 2017-07-28 12:02 | PD.CARD.PN ---
Subjective Subjective Remarks intubated, sedated Objective Medications Current Medications Medications (Trade) Dose Ordered Sig/Claudia Route Start Time Stop Time Status Last Admin (NS Flush) 2 ml UNSCH PRN IV FLUSH 07/21/17 00:00 (NS Flush) 2 ml BID IV FLUSH 07/21/17 09:00 07/28/17 08:21 (Tears Naturale Opth Soln) 1 drop TID EACH EYE 07/21/17 09:00 07/28/17 08:20 (Zofran Inj) 4 mg Q6H PRN IV PUSH 07/21/17 00:00 (Albuterol Neb) 2.5 mg Q2HR NEB PRN INH 07/21/17 00:00 07/28/17 08:56 ([facility] [place] Nursing Information) 1 Q361D XX 07/21/17 00:00 07/21/17 00:00 (Chlorhexidine 2% Cloth) Taper DAILY@04 TOP 07/21/17 04:00 07/17/18 03:59 07/25/17 04:00 (Chlorhexidine 2% Cloth) 3 pack UNSCH PRN TOP 07/21/17 00:00 (Dilia-Colace) 1 tab BID PO 07/21/17 09:00 07/28/17 08:21 (Milk Of Magnesia Liq) 30 ml Q12H PRN PO 07/21/17 00:00 (Senokot) 17.2 mg Q12H PRN PO 07/21/17 00:00 (Dulcolax Supp) 10 mg DAILY PRN RECTAL 07/21/17 00:00 (Lactulose Liq) 30 ml DAILY PRN PO 07/21/17 00:00 (Peridex 0.12% Liq) 15 ml BID@08,20 MT 07/21/17 08:00 07/28/17 08:20 (D50w (Vial) Inj) 50 ml UNSCH PRN IV PUSH 07/21/17 00:00 (Glucagon Inj) 1 mg UNSCH PRN OTHER 07/21/17 00:00 (NovoLOG SUPPLEMENTAL SCALE) 1 Q6HR SQ 07/21/17 00:00 07/27/17 12:39 (Pulmicort Respule Neb) 0.5 mg Q12HR NEB NEB 07/21/17 08:00 07/28/17 08:56 (Brethine Inj) 1 mg UNSCH PRN SQ 07/21/17 00:30 (Norvasc) 5 mg HS PO 07/22/17 21:00 Future Hold 07/24/17 19:56 (Lactulose Liq) 30 ml DAILY PO 07/22/17 09:00 07/27/17 08:09 (Apresoline Inj) 10 mg Q1H PRN IV PUSH 07/22/17 09:45 07/24/17 19:51 (Nitroglycerin 2% Oint) 2 inch Q6H PRN TOPICAL 07/22/17 09:45 (Miralax) 17 gm BID PO 07/23/17 21:00 07/27/17 21:23 Levetriacetam 750 mg/Sodium Chloride 107.5 ml @ 420 mls/hr Q12H IV 07/25/17 10:00 07/28/17 09:20 (Pepcid) 20 mg Q12HR PO 07/25/17 21:00 07/28/17 08:21 Methylprednisolone Sodium Succinate 1000 mg/Sodium Chloride 116 ml @ 232 mls/hr Q24H IV 07/26/17 06:00 07/28/17 06:19 Sodium Chloride 500 ml @ 30 mls/hr CONTINUOUS IV 07/26/17 09:15 07/28/17 00:33 Norepinephrine Bitartrate 4 mg/ Sodium Chloride 250 ml @ 7.5 mls/hr TITRATE PRN IV 07/26/17 09:45 07/27/17 06:00 (Brethine Inj) 1 mg UNSCH PRN SQ 07/26/17 09:45 Propofol 100 ml @ 3.102 mls/ hr TITRATE PRN IV 07/26/17 11:00 07/28/17 08:22 Fentanyl Citrate 250 ml @ 5 mls/hr TITRATE PRN IV 07/26/17 11:00 07/28/17 05:20 Nicardipine HCl 50 mg/Sodium Chloride 500 ml @ 50 mls/hr TITRATE PRN IV 07/26/17 17:30 07/27/17 21:45 Vital Signs / I&O Vital Signs Date Time Temp Pulse Resp B/P (MAP) Pulse Ox O2 Delivery O2 Flow Rate FiO2 07/28/17 10:00 77 07/28/17 09:05 40 07/28/17 09:01 97 40 07/28/17 08:00 98.8 56 23 141/64 (89) 96 07/28/17 08:00 40 07/28/17 08:00 56 07/28/17 06:00 53 07/28/17 04:07 97 40 07/28/17 04:00 40 07/28/17 04:00 98.7 60 22 136/62 (86) 100 07/28/17 04:00 60 07/28/17 02:00 52 07/28/17 00:14 97 40 07/28/17 00:00 98.7 54 22 122/60 (80) 97 07/28/17 00:00 40 07/28/17 00:00 54 07/27/17 22:00 58 07/27/17 21:45 60 141/64 07/27/17 20:00 99.0 64 22 143/65 (91) 95 Arterial Line 07/27/17 20:00 64 07/27/17 20:00 40 07/27/17 18:00 70 07/27/17 17:58 100 100 07/27/17 16:22 93 30 07/27/17 16:00 70 26 134/64 (87) 97 07/27/17 16:00 30 07/27/17 16:00 56 07/27/17 14:11 99 100 07/27/17 14:00 58 I/O 07/27/17 07/27/17 07/27/17 07/28/17 07/28/17 07/28/17 06:59 14:59 22:59 06:59 14:59 22:59 Intake Total 789 ml 1327 ml 1181 ml Output Total 809 ml 1410 ml 794 ml Balance -20 ml -83 ml 387 ml IV Total 400 ml 700 ml 950 ml Tube Feeding 269 ml 377 ml 231 ml Other 120 ml 250 ml Output Urine Total 725 ml 1300 ml 700 ml Drainage Total 84 ml 110 ml 94 ml # Bowel Movements 0 1 1 Physical Exam GENERAL: SKIN: Warm and dry. HEAD: Normocephalic. EYES: No scleral icterus. No injection or drainage. NECK: Supple, trachea midline. No JVD or lymphadenopathy. CARDIOVASCULAR: Regular rate and rhythm without murmurs, gallops, or rubs. RESPIRATORY: Breath sounds equal bilaterally. No accessory muscle use. GASTROINTESTINAL: Abdomen soft, non-tender, nondistended. MUSCULOSKELETAL: No cyanosis, or edema. BACK: Nontender without obvious deformity. No CVA tenderness. Laboratory Laboratory Tests Test 07/27/17 16:00 07/27/17 16:56 07/27/17 17:20 07/27/17 18:48 Serum Osmolality 320 MOSM/KG Sodium Level 153 MEQ/L Urine Color YELLOW Urine Turbidity CLEAR Urine pH 6.0 Urine Specific [place] 1.029 Urine Protein 30 mg/dL Urine Glucose (UA) NEG mg/dL Urine Ketones NEG mg/dL Urine Occult Blood MOD Urine Nitrite NEG Urine Bilirubin NEG Urine Urobilinogen 2.0 MG/DL Urine Leukocyte Esterase NEG Urine RBC 16 /hpf Urine WBC 1 /hpf Urine Squamous Epithelial Cells <1 /hpf Urine Mucus FEW /lpf Microscopic Urinalysis Comment CATH-CULT NOT IND Blood Gas Puncture Site LT RADIAL Blood Gas Patient Temperature 98.6 Blood Gas HCO3 28 mmol/L Blood Gas Base Excess 3.6 mmol/L Blood Gas Oxygen Saturation 90 % Arterial Blood pH 7.38 Arterial Blood Partial Pressure CO2 50 mmHg Arterial Blood Partial Pressure O2 70 mmHg Arterial Blood Oxygen Content 13.5 Vol % Arterial Blood Carboxyhemoglobin 0.8 % Arterial Blood Methemoglobin 1.5 % Blood Gas Hemoglobin 10.6 G/DL Oxygen Delivery Device VENTILATOR Blood Gas Ventilator Setting PRVC/AC Blood Gas Inspired Oxygen 40 % Test 07/28/17 00:28 07/28/17 04:10 Sodium Level 155 MEQ/L 154 MEQ/L White Blood Count 8.9 TH/MM3 Red Blood Count 3.04 MIL/MM3 Hemoglobin 9.7 GM/DL Hematocrit 28.6 % Mean Corpuscular Volume 94.2 FL Mean Corpuscular Hemoglobin 31.9 PG Mean Corpuscular Hemoglobin Concent 33.9 % Red Cell Distribution Width 13.8 % Platelet Count 367 TH/MM3 Mean Platelet Volume 7.4 FL Neutrophils (%) (Auto) 69.9 % Lymphocytes (%) (Auto) 16.3 % Monocytes (%) (Auto) 13.6 % Eosinophils (%) (Auto) 0.0 % Basophils (%) (Auto) 0.2 % Neutrophils # (Auto) 6.2 TH/MM3 Lymphocytes # (Auto) 1.4 TH/MM3 Monocytes # (Auto) 1.2 TH/MM3 Eosinophils # (Auto) 0.0 TH/MM3 Basophils # (Auto) 0.0 TH/MM3 CBC Comment DIFF FINAL Differential Comment Blood Urea Nitrogen 23 MG/DL Creatinine 0.83 MG/DL Random Glucose 122 MG/DL Total Protein 4.9 GM/DL Albumin 2.1 GM/DL Calcium Level 7.5 MG/DL Phosphorus Level 2.8 MG/DL Magnesium Level 2.6 MG/DL Alkaline Phosphatase 63 U/L Aspartate Amino Transf (AST/SGOT) 56 U/L Alanine Aminotransferase (ALT/SGPT) 105 U/L Total Bilirubin 0.1 MG/DL Potassium Level 3.3 MEQ/L Chloride Level 121 MEQ/L Carbon Dioxide Level 29.2 MEQ/L Anion Gap 4 MEQ/L Estimat Glomerular Filtration Rate 93 ML/MIN Total Creatine Kinase 805 U/L Creatine Kinase MB 1.7 NG/ML Creatine Kinase MB % 0.2 % Assessment and Plan Problem List: (1) Toxic metabolic encephalopathy ICD Codes: G92 - Toxic encephalopathy (2) Tetrahydrocannabinol (THC) use disorder, mild, abuse ICD Codes: F12.10 - Cannabis abuse, uncomplicated (3) Encephalopathy ICD Codes: G93.40 - Encephalopathy, unspecified (4) Stroke ICD Codes: I63.9 - Cerebral infarction, unspecified (5) Chronic, continuous use of opioids ICD Codes: F11.90 - Opioid use, unspecified, uncomplicated (6) Cocaine use ICD Codes: F14.90 - Cocaine use, unspecified, uncomplicated Assessment and Plan 1.) I am not sure if he is stable enough to undergo head and neck manipulation to undergo swapnil; he is intubated so i cant assess his ability to swallow; will consider swapnil if risk benefit ratio favors it, he is cleared by neurology and neurosurgery for head and neck manipulation and if findings may change number operator 2.) D/w Dr Epperson 07/28/17; agrees that swapnil will not change short term management and put patient at risk of neurologic injury from neck manipulation during swapnil, d/w nurse at bedside as well Navid Corrales MD July 28, 2017 12:02
--- NOTE | 2017-07-28 12:34 | HHI.NSPN ---
(Nikky Granados) Note Status Status: Progress Note (Nikky Granados) Interval History Interval History 66-year-old obese gentleman who was admitted to [facility] intensive medical unit after presenting to the emergency room 5 days ago found unresponsive at home by . He was intubated and has been on ventilator support since his admission. Workup initially with CT and MRI scan of the brain revealed multifocal areas of infarct involving the bilateral supratentorial hemispheres as well as cerebellar hemispheres consistent with either embolic strokes or anoxia or hypoxia. His toxicology screen was positive for multiple drugs and polysubstance abuse including cocaine, cannabinoids, barbiturates, and opioids. He had a change in his neurologic status with posturing noted today and MRI scan obtained revealed progression of the bilateral cerebellar hemispheres strokes with obstruction of the fourth ventricle and associated hydrocephalus development. Neurosurgery was consulted for the hydrocephalus by the java [email or web address] architect. 07/26/17: Pt sedated on Diprivan and Fentanyl drips. Not opening eyes. Pupils 3mm bilaterally NR bilaterally. Intubated. Ventriculostomy drain in place lowered to [address] Barrwo with orders to increase to 5cmH20 in one hour. 07/27/17: Remains intubated, sedation turned off 10 minutes ago. There is minimal eye opening currently. For follow-up CT brain later this afternoon. Ventriculostomy draining well. 07/28/17: sedation held, new eye rolling, intermittent tremors/shivering reported and questionable posturing. Blood pressure also elevates off sedation. Ventriculostomy draining well, ICPs controlled. Sodium levels elevated. (Nikky Granados) Labs, Micro, & Vital Signs Results Date Time Temp Pulse Resp B/P (MAP) Pulse Ox O2 Delivery O2 Flow Rate FiO2 07/28/17 10:00 77 07/28/17 09:05 40 07/28/17 09:01 97 40 07/28/17 08:00 98.8 56 23 141/64 (89) 96 07/28/17 08:00 40 07/28/17 08:00 56 07/28/17 06:00 53 07/28/17 04:07 97 40 07/28/17 04:00 40 07/28/17 04:00 98.7 60 22 136/62 (86) 100 07/28/17 04:00 60 07/28/17 02:00 52 07/28/17 00:14 97 40 07/28/17 00:00 98.7 54 22 122/60 (80) 97 07/28/17 00:00 40 07/28/17 00:00 54 07/27/17 22:00 58 07/27/17 21:45 60 141/64 07/27/17 20:00 99.0 64 22 143/65 (91) 95 Arterial Line 07/27/17 20:00 64 07/27/17 20:00 40 07/27/17 18:00 70 07/27/17 17:58 100 100 07/27/17 16:22 93 30 07/27/17 16:00 70 26 134/64 (87) 97 07/27/17 16:00 30 07/27/17 16:00 56 07/27/17 14:11 99 100 07/27/17 14:00 58 Constitutional Vital Signs Date Time Temp Pulse Resp B/P (MAP) Pulse Ox O2 Delivery O2 Flow Rate FiO2 07/28/17 10:00 77 07/28/17 09:05 40 07/28/17 09:01 97 40 07/28/17 08:00 98.8 56 23 141/64 (89) 96 07/28/17 08:00 40 07/28/17 08:00 56 07/28/17 06:00 53 07/28/17 04:07 97 40 07/28/17 04:00 40 07/28/17 04:00 98.7 60 22 136/62 (86) 100 07/28/17 04:00 60 07/28/17 02:00 52 07/28/17 00:14 97 40 07/28/17 00:00 98.7 54 22 122/60 (80) 97 07/28/17 00:00 40 07/28/17 00:00 54 07/27/17 22:00 58 07/27/17 21:45 60 141/64 07/27/17 20:00 99.0 64 22 143/65 (91) 95 Arterial Line 07/27/17 20:00 64 07/27/17 20:00 40 07/27/17 18:00 70 07/27/17 17:58 100 100 07/27/17 16:22 93 30 07/27/17 16:00 70 26 134/64 (87) 97 07/27/17 16:00 30 07/27/17 16:00 56 07/27/17 14:11 99 100 07/27/17 14:00 58 (Nikky Granados) Review of Systems ROS Limitations: Clinical Condition (Nikky Granados) Physical Exam Currently sedatives off. Does not open eyes, no spontaneous movements Intermittent eye rolling noted. Right pupil 4 mm reactive, left pupil 2 mm minimally reactive. Ventriculostomy draining well at 5 cm water, CSF clear. ICPs controlled Motor: Minimal response in the feet Neck: tracheostomy Head: With clean headwrap, bandages reportedly changed and with wound clean and dry (Nikky Granados) Medications Current Medications Current Medications Medications (Trade) Dose Ordered Sig/Claudia Route PRN Reason Start Time Stop Time Status Last Admin Dose Admin Sodium Chloride (NS Flush) 2 ml UNSCH PRN IV FLUSH FLUSH AFTER USING IV ACCESS 07/21/17 00:00 Sodium Chloride (NS Flush) 2 ml BID IV FLUSH 07/21/17 09:00 07/28/17 08:21 Artificial Tears (Tears Naturale Opth Soln) 1 drop TID EACH EYE 07/21/17 09:00 07/28/17 08:20 Ondansetron HCl (Zofran Inj) 4 mg Q6H PRN IV PUSH NAUSEA OR VOMITING 07/21/17 00:00 Albuterol Sulfate (Albuterol Neb) 2.5 mg Q2HR NEB PRN INH SOB/WHEEZING 07/21/17 00:00 07/28/17 08:56 Miscellaneous Information ([facility] [place] 1 Q361D XX 07/21/17 00:00 07/21/17 00:00 Chlorhexidine Gluconate (Chlorhexidine 2% Cloth) Taper DAILY@04 TOP 07/21/17 04:00 07/17/18 03:59 07/25/17 04:00 Chlorhexidine Gluconate (Chlorhexidine 2% Cloth) 3 pack UNSCH PRN TOP HYGIENIC CARE 07/21/17 00:00 Senna/Docusate Sodium (Dilia-Colace) 1 tab BID PO 07/21/17 09:00 07/28/17 08:21 Magnesium Hydroxide (Milk Of Magnesia Liq) 30 ml Q12H PRN PO Mild constipation 07/21/17 00:00 Sennosides (Senokot) 17.2 mg Q12H PRN PO Moderate constipation 07/21/17 00:00 Bisacodyl (Dulcolax Supp) 10 mg DAILY PRN RECTAL SEVERE CONSITIPATION 07/21/17 00:00 Lactulose (Lactulose Liq) 30 ml DAILY PRN PO SEVERE CONSITIPATION 07/21/17 00:00 Chlorhexidine Gluconate (Peridex 0.12% Liq) 15 ml BID@08,20 MT 07/21/17 08:00 07/28/17 08:20 Dextrose (D50w (Vial) Inj) 50 ml UNSCH PRN IV PUSH HYPOGLYCEMIA-SEE COMMENTS 07/21/17 00:00 Glucagon (Glucagon Inj) 1 mg UNSCH PRN OTHER HYPOGLYCEMIA-SEE COMMENTS 07/21/17 00:00 Insulin Aspart (NovoLOG SUPPLEMENTAL SCALE) 1 Q6HR SQ 07/21/17 00:00 07/27/17 12:39 Budesonide (Pulmicort Respule Neb) 0.5 mg Q12HR NEB NEB 07/21/17 08:00 07/28/17 08:56 Terbutaline Sulfate (Brethine Inj) 1 mg UNSCH PRN SQ For Extravasation 07/21/17 00:30 Amlodipine Besylate (Norvasc) 5 mg HS PO 07/22/17 21:00 Future Hold 07/24/17 19:56 Lactulose (Lactulose Liq) 30 ml DAILY PO 07/22/17 09:00 07/27/17 08:09 Hydralazine HCl (Apresoline Inj) 10 mg Q1H PRN IV PUSH SBP> OR = 180, DBP> OR = 100 07/22/17 09:45 07/24/17 19:51 Nitroglycerin (Nitroglycerin 2% Oint) 2 inch Q6H PRN TOPICAL SBP> OR = 180, DBP> OR = 100 07/22/17 09:45 Polyethylene Glycol (Miralax) 17 gm BID PO 07/23/17 21:00 07/27/17 21:23 Levetriacetam 750 mg/Sodium Chloride 107.5 ml @ 420 mls/hr Q12H IV 07/25/17 10:00 07/28/17 09:20 Famotidine (Pepcid) 20 mg Q12HR PO 07/25/17 21:00 07/28/17 08:21 Methylprednisolone Sodium Succinate 1000 mg/Sodium Chloride 116 ml @ 232 mls/hr Q24H IV 07/26/17 06:00 07/28/17 06:19 Sodium Chloride 500 ml @ 30 mls/hr CONTINUOUS IV 07/26/17 09:15 07/28/17 00:33 Norepinephrine Bitartrate 4 mg/ Sodium Chloride 250 ml @ 7.5 mls/hr TITRATE PRN IV Blood pressure management 07/26/17 09:45 07/27/17 06:00 Terbutaline Sulfate (Brethine Inj) 1 mg UNSCH PRN SQ For Extravasation 07/26/17 09:45 Propofol 100 ml @ 3.102 mls/ hr TITRATE PRN IV SEDATION 07/26/17 11:00 07/28/17 08:22 Fentanyl Citrate 250 ml @ 5 mls/hr TITRATE PRN IV SEDATION 07/26/17 11:00 07/28/17 05:20 Nicardipine HCl 50 mg/Sodium Chloride 500 ml @ 50 mls/hr TITRATE PRN IV Blood pressure management 07/26/17 17:30 07/27/17 21:45 (Nikky Granados) Medical Decision Making MDM Remarks 66-year-old male found unresponsive MRI brain showed multiple infarcts to both bilateral supratentorial hemispheres and cerebellar hemisphere with mass-effect into the fourth ventricle and associated hydrocephalus Status post cerebellar decompressive craniectomy with placement of ventriculostomy drain Tox screen positive for multiple drugs including cocaine, cannabinoids, barbiturates, and opioids Follow-up CT head 07/27: With improvement of ventriculomegaly, evolving bilateral infarcts, diffuse swelling with mass effect on the brainstem and posterior fossa with effacement of the fourth ventricle (Nikky Granados) Plan Plan Remarks continue close neuro checks and ISC restart sedation as needed continue ventriculostomy draining with ICP monitor follow-up sodium levels, restart hyperosmotic saline with levels decreases continue seizure prophylaxis follow-up with EEG to assess for seizures (Nikky Granados) Attending Statement The exam, history, and the medical decision-making described in the above note were completed with the assistance of the mid-level provider. I reviewed and agree with the findings presented. I attest that I had a [id number] encounter with the patient on the same day, and personally performed and documented my assessment and findings in the medical record. (Tucker Sofia MD) Nikky Granados July 28, 2017 12:34 Tucker Sofia MD July 29, 2017 14:28
--- NOTE | 2017-07-28 14:30 | HHI.IDPN ---
Subjective Subjective Remarks low grade fever resolved developped diarrhea, C.diff rdered but now having semi formed stool Antibiotics azithro Allergies: Coded Allergies: No Known Allergies (Verified Allergy, Unknown, 07/20/17) Objective . Vital Signs Date Time Temp Pulse Resp B/P (MAP) Pulse Ox O2 Delivery O2 Flow Rate FiO2 07/28/17 12:00 40 07/28/17 12:00 77 07/28/17 12:00 98.9 61 24 118/59 (78) 94 07/28/17 10:00 77 07/28/17 09:05 40 07/28/17 09:01 97 40 07/28/17 08:00 98.8 56 23 141/64 (89) 96 07/28/17 08:00 40 07/28/17 08:00 56 07/28/17 06:00 53 07/28/17 04:07 97 40 07/28/17 04:00 40 07/28/17 04:00 98.7 60 22 136/62 (86) 100 07/28/17 04:00 60 07/28/17 02:00 52 07/28/17 00:14 97 40 07/28/17 00:00 98.7 54 22 122/60 (80) 97 07/28/17 00:00 40 07/28/17 00:00 54 07/27/17 22:00 58 07/27/17 21:45 60 141/64 07/27/17 20:00 99.0 64 22 143/65 (91) 95 Arterial Line 07/27/17 20:00 64 07/27/17 20:00 40 07/27/17 18:00 70 07/27/17 17:58 100 100 07/27/17 16:22 93 30 07/27/17 16:00 70 26 134/64 (87) 97 07/27/17 16:00 30 07/27/17 16:00 56 . Laboratory Tests Test 07/26/17 16:55 07/27/17 04:30 07/28/17 04:10 White Blood Count 10.9 TH/MM3 11.3 TH/MM3 8.9 TH/MM3 Red Blood Count 3.69 MIL/MM3 3.03 MIL/MM3 3.04 MIL/MM3 Hemoglobin 11.6 GM/DL 9.5 GM/DL 9.7 GM/DL Hematocrit 35.1 % 28.3 % 28.6 % Mean Corpuscular Volume 95.0 FL 93.5 FL 94.2 FL Mean Corpuscular Hemoglobin 31.4 PG 31.4 PG 31.9 PG Mean Corpuscular Hemoglobin Concent 33.0 % 33.6 % 33.9 % Red Cell Distribution Width 14.2 % 13.8 % 13.8 % Platelet Count 429 TH/MM3 361 TH/MM3 367 TH/MM3 Mean Platelet Volume 7.7 FL 7.6 FL 7.4 FL Neutrophils (%) (Auto) 78.9 % 69.9 % Lymphocytes (%) (Auto) 10.5 % 16.3 % Monocytes (%) (Auto) 10.4 % 13.6 % Eosinophils (%) (Auto) 0.0 % 0.0 % Basophils (%) (Auto) 0.2 % 0.2 % Neutrophils # (Auto) 8.9 TH/MM3 6.2 TH/MM3 Lymphocytes # (Auto) 1.2 TH/MM3 1.4 TH/MM3 Monocytes # (Auto) 1.2 TH/MM3 1.2 TH/MM3 Eosinophils # (Auto) 0.0 TH/MM3 0.0 TH/MM3 Basophils # (Auto) 0.0 TH/MM3 0.0 TH/MM3 CBC Comment DIFF FINAL DIFF FINAL Differential Comment Laboratory Tests Test 07/26/17 17:10 07/27/17 01:30 07/27/17 04:30 07/27/17 11:29 Sodium Level 146 MEQ/L 150 MEQ/L 152 MEQ/L 151 MEQ/L Serum Osmolality 308 MOSM/KG Blood Urea Nitrogen 15 MG/DL 15 MG/DL Creatinine 0.73 MG/DL 0.78 MG/DL Random Glucose 124 MG/DL 126 MG/DL Calcium Level 7.6 MG/DL 7.7 MG/DL Potassium Level 3.8 MEQ/L 3.8 MEQ/L Chloride Level 116 MEQ/L 117 MEQ/L Carbon Dioxide Level 29.9 MEQ/L 28.5 MEQ/L Anion Gap 4 MEQ/L 7 MEQ/L Estimat Glomerular Filtration Rate 108 ML/MIN 100 ML/MIN Total Protein 4.9 GM/DL Albumin 1.9 GM/DL Phosphorus Level 2.9 MG/DL Magnesium Level 2.5 MG/DL Alkaline Phosphatase 64 U/L Aspartate Amino Transf (AST/SGOT) 68 U/L Alanine Aminotransferase (ALT/SGPT) 98 U/L Total Bilirubin 0.2 MG/DL Total Creatine Kinase 969 U/L Creatine Kinase MB 2.9 NG/ML Creatine Kinase MB % 0.3 % Test 07/27/17 16:00 07/27/17 16:56 07/28/17 00:28 07/28/17 04:10 Serum Osmolality 320 MOSM/KG Sodium Level 153 MEQ/L 155 MEQ/L 154 MEQ/L Blood Urea Nitrogen 23 MG/DL Creatinine 0.83 MG/DL Random Glucose 122 MG/DL Total Protein 4.9 GM/DL Albumin 2.1 GM/DL Calcium Level 7.5 MG/DL Phosphorus Level 2.8 MG/DL Magnesium Level 2.6 MG/DL Alkaline Phosphatase 63 U/L Aspartate Amino Transf (AST/SGOT) 56 U/L Alanine Aminotransferase (ALT/SGPT) 105 U/L Total Bilirubin 0.1 MG/DL Potassium Level 3.3 MEQ/L Chloride Level 121 MEQ/L Carbon Dioxide Level 29.2 MEQ/L Anion Gap 4 MEQ/L Estimat Glomerular Filtration Rate 93 ML/MIN Total Creatine Kinase 805 U/L Creatine Kinase MB 1.7 NG/ML Creatine Kinase MB % 0.2 % Test 07/28/17 12:55 Microbiology Date/Time Source Procedure Growth Status 07/28/17 07:35 Blood Peripheral Aerobic Blood Culture Pending Received 07/28/17 07:35 Blood Peripheral Anaerobic Blood Culture Pending Received 07/27/17 15:16 Blood Peripheral Aerobic Blood Culture - Preliminary NO GROWTH IN 1 DAY Resulted 07/27/17 15:16 Blood Peripheral Anaerobic Blood Culture - Preliminary NO GROWTH IN 1 DAY Resulted 07/26/17 10:50 Cerebral Spinal Fluid Shunt Fluid Acid Fast Stain - Final NO ACID FAST BACILLI SEEN Resulted 07/26/17 10:50 Cerebral Spinal Fluid Shunt Fluid Mycobacterial Culture Pending Resulted 07/26/17 00:31 Cerebral Spinal Fluid Shunt Fluid Fungal Smear - Final NO FUNGAL ELEMENTS SEEN. Resulted 07/26/17 00:31 Cerebral Spinal Fluid Shunt Fluid Fungal Culture Pending Resulted 07/26/17 00:31 Cerebral Spinal Fluid Shunt Fluid Gram Stain - Final Resulted 07/26/17 00:31 Cerebral Spinal Fluid Shunt Fluid CSF Culture - Preliminary NO GROWTH IN 48 HOURS. Resulted 07/27/17 16:30 Sputum Endotracheal Gram Stain - Final Resulted 07/27/17 16:30 Sputum Endotracheal Sputum Culture - Preliminary IMMATURE GROWTH - REINCUBATE Resulted 07/26/17 14:19 Wound Other Fungal Smear - Final NO FUNGAL ELEMENTS SEEN. Resulted 07/26/17 14:19 Wound Other Fungal Culture Pending Resulted 07/26/17 14:19 Wound Other Acid Fast Stain - Final NO ACID FAST BACILLI SEEN Resulted 07/26/17 14:19 Wound Other Mycobacterial Culture Pending Resulted 07/26/17 14:19 Wound Other Gram Stain - Final Resulted 07/26/17 14:19 Wound Other Wound Culture - Preliminary NO GROWTH IN 48 HOURS. Resulted Imaging Last Impressions Head CT 07/27/17 0600 Signed Impressions: Service Date/Time: Thursday, July 27, 2017 13:39 - CONCLUSION: 1. Decrease in ventricular size since July 25. Extensive low attenuation and swelling in both occipital lobes and also in the periventricular region, basal ganglia and focally in the right occipital lobe. Differential diagnosis includes edema or evolving infarcts. There is mass effect on the brainstem and posterior fossa with effacement of the fourth ventricle. Ananda Messina MD Chest X-Ray 07/27/17 0000 Signed Impressions: Service Date/Time: Thursday, July 27, 2017 18:23 - CONCLUSION: 1. Tracheostomy tube in good position. 2. Unchanged left effusion and bilateral lower lobe infiltrates. Oumar Bray Jr., MD Abdomen X-Ray 07/27/17 0000 Signed Impressions: Service Date/Time: Thursday, July 27, 2017 20:37 - CONCLUSION: NG tube coiled in the lower thoracic esophagus. Oumar Bray Jr., MD Head/Brain Mag Res Venography 07/25/17 0000 Signed Impressions: Service Date/Time: Tuesday, July 25, 2017 19:54 - CONCLUSION: Patent dural sinuses. Lonnie Munguia MD Brain MRI 07/25/17 0000 Signed Impressions: Service Date/Time: Tuesday, July 25, 2017 10:37 - CONCLUSION: Worsening brain appearance with developing hydrocephalus which is presumably related to increasing edema in the posterior fossa. See above discussion. Lonnie Lock MD Neck Magnetic Resonance Angiography 07/21/17 0000 Signed Impressions: Service Date/Time: Friday, July 21, 2017 08:40 - CONCLUSION: No acute neck arteriovascular abnormality is identified. There is no significant stenosis within either internal carotid artery. Lonnie Ross MD Head Magnetic Resonance Angiography 07/21/17 Signed Impressions: Service Date/Time: Friday, July 21, 2017 08:40 - CONCLUSION: No acute intracranial vascular abnormality is identified. Lonnie Ross MD Abdomen Ultrasound 07/21/17 Signed Impressions: Service Date/Time: Friday, July 21, 2017 15:47 - CONCLUSION: Cholelithiasis. No gallbladder wall thickening or pericholecystic fluid. VictorM anuel Barros MD Physical Exam CONSTITUTIONAL/GENERAL: This is an obese ederly patient, in no apparent distress. On vent TUBES/LINES/DRAINS: SKIN: No jaundice, rashes, or lesions. Skin temperature appropriate. Not diaphoretic. HEAD: Ventric in place R parietal area with clear CSF EYES: Pupils equal and round and reactive. Extraocular motions intact. No scleral icterus. No injection or drainage. Fundi not examined. ENT: Hearing not tested Nose without bleeding or purulent drainage. Throat without visible erythema, exudates, masses, or lesions. Orally intubated NECK: Trachea midline. Supple, nontender. No palpable thyroid enlargement or nodularity. CARDIOVASCULAR: Regular rate and rhythm without murmurs, gallops, or rubs. No JVD. Peripheral pulses symmetric. RESPIRATORY/CHEST: Symmetric, unlabored respirations. Clear to auscultation. Breath sounds equal bilaterally. No wheezes, rales, or rhonchi. GASTROINTESTINAL: Abdomen soft, non-tender, nondistended. No hepato-splenomegaly , or palpable masses. GENITOURINARY: Without palpable bladder distension. Garner catheter in place with clear yellow urine. Prominent scrotum edema MUSCULOSKELETAL: Extremities without clubbing, cyanosis, remains quite edematous. No joint tenderness or effusion noted. No calf tenderness. No mottling or clubbing. NEUROLOGICAL: Unresponsive PSYCHIATRIC: Unable to assess Assessment & Plan Remarks ASbnormal CSF - R/o meningoencephalits overall neither radiological studies nor clinical presentation favours meningoencephalitis - not cw bacterial meni gitis at all after embolic strokes and anoxia the meningoencepahlitis down on diff dx list - AKILAH not feasible at this point per lathe puller Acute VDRF ARF 2/2 rhabdo: resolved New fever - resolved Likely PNA: sputum purulent with many GPC in pairs monitor blood clx, sputum, UA/C+S dc azithromycin starte cefepime, vanco for PNA chk stool for C.diff if more diarrhea probiotics fu CXR Reva Corrales MD July 28, 2017 14:30
[2017-07-28] MEDS ORDERED: Vancomycin Consult Pharmacy 1 EA OTHER SCH (14:45)
[2017-07-28] MEDS: CEFEPIME INJ 2,000 MG in SODIUM CHLORIDE 0.9% INJ 100 ML IV SCH (16:18)
--- NOTE | 2017-07-28 16:40 | MG ---
cc: Lilibeth Dupont MD, Dalia MD EEG NUMBER [id number] REFERRING PHYSICIAN: MURALI Granados Intubated. Photic done. Fentanyl at 150 mcg, Diprivan at 30 mcg. This was set off 20 minutes prior to the study and turned back on at 14 minutes into the EEG. Having some type of shaking tremors, upper body, rigid. Has a ventricular drain right frontal. MEDICATIONS: 1. Levophed 2. Keppra. 3. Propofol f 4. Fentanyl as described DESCRIPTION OF RECORD: Overall, the background is significantly slow, various epochs are reviewed. Predominantly of a 2 to 2 1/2 Hz noted. Hyperventilation could not be done. Photic stimulation without any driving response. IMPRESSION: Abnormal electroencephalogram with moderate slowing of background consistent with moderate to severe encephalopathic process. No epileptiform features. Clinical correlation. MD SAMIRA Rose/ , 03:17 PM , 04:39 PM
[2017-07-28] MEDS: VANCOMYCIN 1,500 MG/NS 500 ML IV SCH ×2 (16:45)
[2017-07-28] MEDS: LACTOBACILLUS ACIDOPHILUS TAB PO SCH (17:39)
[2017-07-28 17:52] LABS: CSF CRYPTOCOCCUS ANTIGEN NOT DETECTED (NEGATIVE)
[2017-07-28] MEDS: niCARdipine INJ 50 MG in SODIUM CHLORID 0.9% 500 ML INJ 480 ML IV PRN (21:43)
[2017-07-28 23:52] LABS: CALIFORNIA ENCEPH AB IGG <1:4 (<1:4); CALIFORNIA ENCEPH AB IGM <1:4 (<1:4); EAST EQUINE ENCEPH AB IGG <1:4 (<1:4); EAST EQUINE ENCEPH AB IGM <1:4 (<1:4); ST LOUIS ENCEPH AB IGG <1:4 (<1:4); ST LOUIS ENCEPH AB IGM <1:4 (<1:4); VDRL CSF NON-REACTIVE (NON-REACTVE); WEST EQUINE ENCEPH AB IGG <1:4 (<1:4); WEST EQUINE ENCEPH AB IGM <1:4 (<1:4)
[2017-07-29] VITALS (16 sets, daily range): BP systolic 129–145; BP diastolic 63–68; PULSE 48–64; RESP 10–25; TEMP 98–98.9; O2SAT 93–100
[2017-07-29] MEDS: CEFEPIME INJ 2,000 MG in SODIUM CHLORIDE 0.9% INJ 100 ML IV SCH (00:40)
[2017-07-29] MEDS: INSULIN ASPART SUPPLEMENTAL SCALE SQ SCH ×5 (00:40→23:54)
[2017-07-29] MEDS: PROPOFOL 1000 MG/100 ML INJ 100 ML IV PRN ×5 (02:48→18:59)
[2017-07-29] MEDS: VANCOMYCIN 1,500 MG/NS 500 ML IV SCH ×2 (04:31)
[2017-07-29] MEDS: CHLORHEXIDINE GLUCONATE 2 % 1 PACK (2 CLOTHS) TOP SCH (04:31)
[2017-07-29 04:40] LABS: ALT (GPT) 127 U/L (12-78); AST (GOT) 58 U/L (15-37); BICARBONATE 28.7 MEQ/L (21.0-32.0); BLOOD UREA NITROGEN 26 MG/DL (7-18); CALCIUM 7.7 MG/DL (8.5-10.1); CHLORIDE 121 MEQ/L (98-107); CREATININE 0.76 MG/DL (0.60-1.30); GLOMERULAR FILTRATION RATE 103 ML/MIN (>89); GLUCOSE,RANDOM 167 MG/DL (74-106); SODIUM (NA) 155 MEQ/L (136-145)
[2017-07-29 04:43] LABS: ALKALINE PHOSPHATASE 71 U/L (45-117); TOTAL BILIRUBIN ADULT 0.1 MG/DL (0.2-1.0)
--- NOTE | 2017-07-29 05:07 | RADRPT ---
EXAM DATE/TIME: 07/29/2017 04:18 [facility] COMPARISON: CHEST SINGLE AP, July 27, 2017, 18:23. INDICATIONS : Pneumonia. MEDICAL HISTORY : Hypertension. Diabetes mellitus type II. SURGICAL HISTORY : Colon resection. Fusion, cervical ENCOUNTER: Subsequent ACUITY: 1 day PAIN SCORE: Non-responsive. LOCATION: Bilateral chest FINDINGS: A single AP semierect portable view of the chest was obtained and again demonstrates the tracheostomy tube and nasogastric tube in place. Hazy infrahilar and bibasilar airspace disease remains. The hear t size is within normal limits. The bony thorax is intact. Overlying retrocardiac leads and oxygen tu anurag are present. CONCLUSION: No significant change. Buck Henry MD on July 29, 2017 at 5:04 Board Certified Radiologist. This report was verified electronically.
[2017-07-29] MEDS: methylPREDNISolone SO SUCC INJ 1,000 MG in SODIUM CHLORIDE 0.9% INJ 100 ML IV SCH (06:08)
[2017-07-29] MEDS: niCARdipine INJ 50 MG in SODIUM CHLORID 0.9% 500 ML INJ 480 ML IV PRN (06:47)
[2017-07-29] MEDS: RESP: BUDESONIDE 0.5 MG/2 ML NEB NEB SCH ×2 (08:01→20:49)
[2017-07-29] MEDS: RESP: ALBUTEROL 2.5 MG/3 ML NEB (PRN) INH (08:01)
--- NOTE | 2017-07-29 08:54 | HHI.CCPN ---
Subjective Remarks/Hospital Course This is a 66-year-old male. Date of admission 07/20/2017. Past medical history includes hypertension, hyperlipidemia, COPD with ongoing tobacco abuse, peptic ulcer disease and anxiety. He also has history of lumbar stenosis, degenerative joint disease of the back and cervical spine. He presents to [facility] with the following history. 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 According to his at bedside, patient is drug tested. Patient returned home from work on Sunday after his 30 day work schedule. Patient was changing the tire of a bike friend yesterday. Patient returned home in no acute distress. Today, patient was tired and was sleeping all day. Initially patient had similar symptoms at lunch. When the attempted to wake him up later this evening patient be was nonresponsive with a weak pulse. She attempted to use ammonia without response. At that time EMS was called and patient was transferred to [facility]. Patient was noted to be an acute change with a creatinine of 3.8. Baseline is normal. Potassium is 7.4 without EKG changes. Patient received bicarbonate, insulin/D50, calcium and Kayexalate in the ED. Repeat potassium 3 hours. Patient is making urine and appears concentrated. UA is pending. Patient leukocytosis 13,000. CPK was 5000. Lactic acid was 2.6. Urine drug screen revealed positive for opiates, amphetamines, benzodiazepines, THC and cocaine. Head CT is currently pending. Due to altered mental status patient was admitted after receiving 20 mg etomidate and 100 mg succinylcholine by ED physician. Patient also received 4 mg of midazolam and after which patient became hypotensive is currently receiving 3 L normal saline wide open. Head CT is currently pending. Patient received clindamycin along with piperacillin/ tazobactam in the ED. 07/21: Overnight the patient required to protamine infusion low-dose currently being weaned off. The patient continues on fentanyl and propofol infusion for ventilator synchrony. Patient's undergoing MRI evaluation results pending. The patient was noted to have significant elevation in creatinine kinase the patient is bolused 1 L IV fluids increase in normal saline 200 cc/hr. Lactic acid downtrending will continue to trend creatinine noted to be decreasing. 07/22: Currently afebrile. Off all vasopressors. We will switch to LR at 200 cc an hour. Recheck BMP this afternoon. Moving all 4 x-rays spontaneously right upper extremity less. Opens eyes but not following commands. Positive gag and corneal reflex. Subjective: 07/23: Currently on dexmedetomidine drip at 0.7 mg/kg/h. Minimal response to distinguish. Will hold at the present time and reassess neurological condition. EEG showed no epileptiform activity. Tolerating tube feeding. No bowel movement since admission. Currently afebrile. 07/24: Per nursing staff patient was off sedation over the night and he woke up and followed some simple commands, but due to agitation, hypertension and tachycardia patient was restarted on sedation. He is currently on Precedex at 1 , tolerating CPAP, sedated. T-max of 99. I/O 3029/1451. 07/25: No events over the night. This morning while attempting CPAP trial patient became rigid, unresponsive, with gaze deviation, tachypneic tachycardic and hypertensive, suggesting seizure activity. Patient was immediately given Ativan 2 mg 1 with resolution of episode. Neurology was contacted and plan for EEG and CT head as well as propofol infusion. No family present at bedside. T-max of 100.7 over the night. Urine output 2300 mL's over the last 24 hours. 07/26: EVD placed yesterday for declining mental status with hydrocephalus and severe cerebellar edema. this AM, extensor posturing. supratentorial ICPs controlled, but cerebellar edema persists. discussed with Dr. Roman: csf could be consistent with encephalitis. d/w Dr. Barrow: will need posterior fossa decompression. 07/27: no improvements in mental status. s/p suboccipital crani yesterday. remains intermittently on cardene and levophed to maintain cpp. ICP controlled. brain biopsies pending. 07/28: Osmolality suitably concentrated. ICP well controlled. Maintaining head up position. On attempted CPAP trial patient has 25 second periods of apnea. Unstable neurological status we will not stress him with extended spontaneous breathing trials. 07/29: Requiring Cardene still to maintain systolic blood pressure less than 160. Markedly edematous and will need to start active diuresis. No change in neurologic function. Apnea episodes persist. Objective Vital Signs Date Time Temp Pulse Resp B/P (MAP) Pulse Ox O2 Delivery O2 Flow Rate FiO2 07/29/17 08:04 40 07/29/17 08:04 95 07/29/17 06:47 53 152/72 07/29/17 00:00 98.7 25 Intake and Output 07/29/17 07/29/17 07/30/17 08:00 16:00 00:00 Intake Total 654 ml Output Total 880 ml Balance -226 ml Result Diagram: 07/28/17 0410 07/29/17 0355 Imaging Last 24 hours Impressions Chest X-Ray 07/24/17 0600 Signed Impressions: Service Date/Time: Monday, July 24, 2017 03:41 - CONCLUSION: Patchy diffuse interstitial prominence and pulmonary vascular prominence unchanged. Ankur Shields MD Last Impressions Chest X-Ray 07/23/17 0600 Signed Impressions: Service Date/Time: Sunday, July 23, 2017 04:10 - CONCLUSION: Lungs grossly clear. Tubes and catheter in good position. Ankur Shields MD Neck Magnetic Resonance Angiography 07/21/17 0000 Signed Impressions: Service Date/Time: Friday, July 21, 2017 08:40 - CONCLUSION: No acute neck arteriovascular abnormality is identified. There is no significant stenosis within either internal carotid artery. Lonnie Ross MD Head Magnetic Resonance Angiography 07/21/17 0000 Signed Impressions: Service Date/Time: Friday, July 21, 2017 08:40 - CONCLUSION: No acute intracranial vascular abnormality is identified. Lonnie Ross MD Brain MRI 07/21/17 0000 Signed Impressions: Service Date/Time: Friday, July 21, 2017 08:40 - CONCLUSION: Multifocal areas of restricted diffusion/recent ischemia within the centrum semiovale bilaterally, bilateral occipital lobes, bilateral basal ganglia, bilateral temporal lobes, and bilateral cerebellar hemispheres. Findings could be related to global anoxic event or less likely embolic phenomenon. Lonnie Ross MD Abdomen Ultrasound 07/21/17 0000 Signed Impressions: Service Date/Time: Friday, July 21, 2017 15:47 - CONCLUSION: Cholelithiasis. No gallbladder wall thickening or pericholecystic fluid. Victor Manuel Barros MD Head CT 07/20/17 [id number] Signed Impressions: Service Date/Time: Friday, July 21, 2017 00:53 - CONCLUSION: Abnormal brain appearance. Recommend MRI for further evaluation Lonnie Lock MD Objective Remarks General - middle-aged gentleman, intubated, ill-appearing, unresponsive HEENT - pupils equal, dilated, reactive, sclerae anicteric, neck supple, no nuchal rigidity. CV - bradycardic rate, regular rhythm. sinus. Neck veins are full but not tensely distended Chest - equal chest rise. full mechanical support. PRVC. fio2 45%. peep 5. Decreased breath sounds both bases. Abdomen - soft, non-tender, non-distended, no guarding. Bowel sounds active. Skin - no rashes, no cyanosis, multiple tattoos bilateral upper extremities and thorax Extremities - warm and well perfused, no edema, + peripheral pulses, no clubbing Neuro - intubated via tracheostomy, off sedation, unresponsive, pupils equal and reactive, extensor posturing. Apnea episodes on spontaneous breathing. A/P Assessment and Plan Assessment: 66yM with acute encephalopathy and severe cerebellar edema of unclear etiology. very critically ill with ongoing life-threatening malignant cerebral edema in the posterior fossa. s/p suboccipital crani for decompression 07/26 and brain biopsies. continue hyperosmolar therapy and supportive care. has been greater than a week on full mechanical ventilation, and I do not see his mental status improving to the point of extubation within the next week or more. 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 Discussed with neurology and neurosurgery hyperosmolar therapy serial sodiums, osms Hold 3% nacl at 30cc/hr, osmolality 155. CT brain 07/21 There is patchy mild diminished attenuation in centrum semi-ovale bilaterally. There is mild heterogeneous diminished density in the genu region of internal capsules and globus pallidus bilaterally. There is vague diminished density in the cerebellar hemispheres bilaterally. There is no evidence of intracranial mass or hemorrhage. There is no abnormal extra-axial fluid accumulation or shift present. 07/21 MRI brain-Multifocal areas of restricted diffusion/recent ischemia within the centrum semiovale bilaterally, bilateral occipital lobes, bilateral basal ganglia, bilateral temporal lobes, and bilateral cerebellar hemispheres. Findings could be related to global anoxic event or less likely embolic phenomenon. 07/21 EEG revealed no epileptic activity 07/21-MRA brain/neck -no acute findings UDS + opiates, amphetamines, benzodiazepines, THC and cocaine CSF studies pending. brain biopsies pending EVD placed 07/25 by [facility]. CV: History of essential hypertension Hyperlipidemia Lactic acidosis -resolved Sinus bradycardia- secondary to elevated ICP Holding valsartan 320 mg p.o. daily due to hypotension/acute kidney injury Holding rosuvastatin 10 mg p.o. q. Sunday/Sunday/Sunday due to elevated LFTs. Resume when clinically indicated. holding amlodipine TTE results reviewed, LV size normal, EF of 55%. Levophed for cerebral perfusion pressure goal > 75 mmHg. Resp: Acute hypoxemic and hypercarbic respiratory failure [facility] Albuterol/ipratropium aerosols every 6 hours with albuterol aerosol every 2 hours as needed dyspnea budesonide 0.5/2 1 inhalation twice daily since on budesonide/formoterol 160/ 4.5 1 puff twice daily at home along with albuterol inhaler twice daily no weaning of mechanical ventilation until mental status and ICP improves wean fio2 for goal spo2 > 90% hob elevated Tracheostomy yesterday well tolerated GI: Elevated transaminases -slowly trending down Rhabdomyolysis -improving, urine output is adequate, CPK trending down Cholelithiasis CK levels-5000->61490->20K --> 5930 --> 3370 07/21 Liver ultrasound revealed cholelithiasis Hepatitis panel-negative Tube feeding with Neutra hep goal 45 cc an hour Lansoprazole for GI prophylaxis Docusate/senna 1 tablet twice daily for bowel regimen New gastric tube placed through the nose : Adler catheter has been placed for accurate I's and O's in a critically ill patient keep adler today. Endo: Sliding scale insulin with NovoLog with Accu-Cheks every 6 hours to maintain euglycemia/low regimen Hemoglobin A1c documented at 6.1 Renal: Acute kidney injury -resolved Rhabdomyolysis -improving Volume overload -patient is more than 10 L positive since admission saline lock NS ivf lasix 20mg iv x 1. Monitor urine output Accurate I's and O's Renal ultrasound revealed no hydronephrosis bilaterally 07/21 Urine eosinophils negative. Avoid nephrotoxic drugs Trend CPK Heme: Normocytic anemia Monitor CBC daily. Follow trend hold SQH ID: Received piperacillin/tazobactam and clindamycin ED for possible aspiration Empiric antibiotics-piperacillin/tazobactam, azithromycin and vancomycin Blood cultures 2, UA, sputum 07/21 all pending/no growth to date Strep pneumo, Legionella urine antigens-negative FEN: Hypophosphatemia -resolved Electrolyte protocol MSK: History of multiple lumbar/cervical spine surgeries PT evaluate and treat Access 07/25: left SC TLC 07/26: right radial art line adler 07/25 EVD Prophylaxis -GI -lansoprazole -DVT -SCD/ Heparin SQ Overall impression: This gentleman remains critically ill with a pronounced neurologic injury. Early tracheostomy will hopefully allow us to eliminate sedation and better assess his neurological function. Osmolality is acceptably concentrated and we will hold hypertonic saline for now. Watch sodium trend closely. Start diuretics due to considerable fluid overload, bilateral pleural effusions. Restart low-dose DALTON inhibitor and try to wean off Cardene. Cerebral perfusion pressure is suitably high. Critical care time 39 minutes aside from procedures. Manuel Rose MD July 29, 2017 08:54
[2017-07-29] MEDS: LACTULOSE SYRUP 20 GM/30 ML CUP PO SCH (09:14)
[2017-07-29] MEDS: FUROSEMIDE 40 MG/4 ML VIAL IV PUSH SCH ×2 (09:14→18:21)
[2017-07-29] MEDS: amLODIPine BESYLATE 5 MG TAB PO SCH ×2 (09:15→21:25)
[2017-07-29] MEDS: POLYETHYLENE GLYCOL 17 GM PKG PO SCH ×2 (09:15→21:25)
[2017-07-29] MEDS: FAMOTIDINE 20 MG TAB PO SCH ×2 (09:15→21:25)
[2017-07-29] MEDS: LISINOPRIL 10 MG TAB PO SCH (09:15)
[2017-07-29] MEDS: DOCUSATE SODIUM 50 MG/SENNA 8.6 MG TAB PO SCH ×2 (09:15→21:25)
[2017-07-29] MEDS: LACTOBACILLUS ACIDOPHILUS TAB PO SCH ×3 (09:15→18:21)
[2017-07-29] MEDS: ARTIFICIAL TEARS OPTH SOLN 15 ML BTL EACH EYE SCH ×3 (09:16→18:22)
[2017-07-29] MEDS: SODIUM CHLORIDE 0.9% FLUSH 10 ML FLUSH IV FLUSH SCH ×2 (09:16→21:25)
[2017-07-29] MEDS: CHLORHEXIDINE 0.12% (ORAL KIT) 15 ML CUP MT SCH ×2 (09:16→19:41)
[2017-07-29] MEDS: levETIRAcetam INJ 750 MG in SODIUM CHLORIDE 0.9% INJ 100 ML IV SCH ×2 (10:33→21:25)
[2017-07-29 11:09] LABS: BICARBONATE 26.7 MEQ/L (21.0-32.0); CALCIUM 7.9 MG/DL (8.5-10.1); CREATININE 0.89 MG/DL (0.60-1.30)
--- NOTE | 2017-07-29 11:39 | HHI.NSPN ---
(Nikky Granados) Note Status Status: Progress Note (Nikky Granados) Interval History Interval History 66-year-old obese gentleman who was admitted to [facility] intensive medical unit after presenting to the emergency room 5 days ago found unresponsive at home by . He was intubated and has been on ventilator support since his admission. Workup initially with CT and MRI scan of the brain revealed multifocal areas of infarct involving the bilateral supratentorial hemispheres as well as cerebellar hemispheres consistent with either embolic strokes or anoxia or hypoxia. His toxicology screen was positive for multiple drugs and polysubstance abuse including cocaine, cannabinoids, barbiturates, and opioids. He had a change in his neurologic status with posturing noted today and MRI scan obtained revealed progression of the bilateral cerebellar hemispheres strokes with obstruction of the fourth ventricle and associated hydrocephalus development. Neurosurgery was consulted for the hydrocephalus by the author. 07/26/17: Pt sedated on Diprivan and Fentanyl drips. Not opening eyes. Pupils 3mm bilaterally NR bilaterally. Intubated. Ventriculostomy drain in place lowered to [address] Barrow with orders to increase to 5cmH20 in one hour. 07/27/17: Remains intubated, sedation turned off 10 minutes ago. There is minimal eye opening currently. For follow-up CT brain later this afternoon. Ventriculostomy draining well. 07/28/17: sedation held, new eye rolling, intermittent tremors/shivering reported and questionable posturing. Blood pressure also elevates off sedation. Ventriculostomy draining well, ICPs controlled. Sodium levels elevated. 07/29: sedated, trying to wean of cardene drip. serum sodium levels still elevated, and 3% NS on hold. EEG yesterday neg for seizures. (Nikky Granados) Labs, Micro, & Vital Signs Results Date Time Temp Pulse Resp B/P (MAP) Pulse Ox O2 Delivery O2 Flow Rate FiO2 07/29/17 08:04 40 07/29/17 08:04 95 40 07/29/17 06:47 53 152/72 07/29/17 04:40 99 40 5/13/18 04:00 40 07/29/17 02:00 57 07/29/17 00:19 96 40 07/29/17 00:00 98.7 54 25 139/67 (91) 95 07/29/17 00:00 54 07/29/17 00:00 40 07/28/17 22:00 64 07/28/17 21:43 61 149/70 07/28/17 21:08 96 40 07/28/17 20:00 70 07/28/17 20:00 98.8 70 25 157/72 (100) 96 07/28/17 20:00 40 07/28/17 18:00 78 07/28/17 16:00 98.9 61 24 118/59 (78) 94 07/28/17 16:00 40 07/28/17 16:00 62 07/28/17 15:39 94 40 07/28/17 14:00 57 07/28/17 12:00 40 07/28/17 12:00 77 07/28/17 12:00 98.9 61 24 118/59 (78) 94 Constitutional Vital Signs Date Time Temp Pulse Resp B/P (MAP) Pulse Ox O2 Delivery O2 Flow Rate FiO2 07/29/17 08:04 40 07/29/17 08:04 95 40 07/29/17 06:47 53 152/72 07/29/17 04:40 99 40 07/29/17 04:00 40 07/29/17 02:00 57 07/29/17 00:19 96 40 07/29/17 00:00 98.7 54 25 139/67 (91) 95 07/29/17 00:00 54 07/29/17 00:00 40 07/28/17 22:00 64 07/28/17 21:43 61 149/70 07/28/17 21:08 96 40 07/28/17 20:00 70 07/28/17 20:00 98.8 70 25 157/72 (100) 96 07/28/17 20:00 40 07/28/17 18:00 78 07/28/17 16:00 98.9 61 24 118/59 (78) 94 07/28/17 16:00 40 07/28/17 16:00 62 07/28/17 15:39 94 40 07/28/17 14:00 57 07/28/17 12:00 40 07/28/17 12:00 77 07/28/17 12:00 98.9 61 24 118/59 (02) 94 (Nikky Granados) Review of Systems ROS Limitations: Clinical Condition, Altered Mental Status (Nikky Granados) Physical Exam Sedated on multiple drips. Does not open eyes, no spontaneous movements Intermittent eye rolling noted, better today. bilateral pupils 2-3 mm minimally reactive. Motor: Minimal response in the feet Neck: tracheostomy Head: right ventriculostomy in place, draining clear CSF. ICPs controlled Positive cough, gag when suctioned (Nikky Granados) Medications Current Medications Current Medications Medications (Trade) Dose Ordered Sig/Claudia Route PRN Reason Start Time Stop Time Status Last Admin Dose Admin Sodium Chloride (NS Flush) 2 ml UNSCH PRN IV FLUSH FLUSH AFTER USING IV ACCESS 07/21/17 00:00 Sodium Chloride (NS Flush) 2 ml BID IV FLUSH 07/21/17 09:00 07/29/17 09:16 Artificial Tears (Tears Naturale Opth Soln) 1 drop TID EACH EYE 07/21/17 09:00 07/29/17 09:16 Ondansetron HCl (Zofran Inj) 4 mg Q6H PRN IV PUSH NAUSEA OR VOMITING 07/21/17 00:00 Albuterol Sulfate (Albuterol Neb) 2.5 mg Q2HR NEB PRN INH SOB/WHEEZING 07/21/17 00:00 07/29/17 08:01 Miscellaneous Information [place] 1 Q361D XX 07/21/17 00:00 07/21/17 00:00 Chlorhexidine Gluconate (Chlorhexidine 2% Cloth) Taper DAILY@04 TOP 07/21/17 04:00 07/17/18 03:59 07/25/17 04:00 Chlorhexidine Gluconate (Chlorhexidine 2% Cloth) 3 pack UNSCH PRN TOP HYGIENIC CARE 07/21/17 00:00 Senna/Docusate Sodium (Dilia-Colace) 1 tab BID PO 07/21/17 09:00 07/29/17 09:15 Magnesium Hydroxide (Milk Of Magnesia Liq) 30 ml Q12H PRN PO Mild constipation 07/21/17 00:00 Sennosides (Senokot) 17.2 mg Q12H PRN PO Moderate constipation 07/21/17 00:00 Bisacodyl (Dulcolax Supp) 10 mg DAILY PRN RECTAL SEVERE CONSITIPATION 07/21/17 00:00 Lactulose (Lactulose Liq) 30 ml DAILY PRN PO SEVERE CONSITIPATION 07/21/17 00:00 Chlorhexidine Gluconate (Peridex 0.12% Liq) 15 ml BID@08,20 MT 07/21/17 08:00 07/29/17 09:16 Dextrose (D50w (Vial) Inj) 50 ml UNSCH PRN IV PUSH HYPOGLYCEMIA-SEE COMMENTS 07/21/17 00:00 Glucagon (Glucagon Inj) 1 mg UNSCH PRN OTHER HYPOGLYCEMIA-SEE COMMENTS 07/21/17 00:00 Insulin Aspart (NovoLOG SUPPLEMENTAL SCALE) 1 Q6HR SQ 07/21/17 00:00 07/29/17 06:08 Budesonide (Pulmicort Respule Neb) 0.5 mg Q12HR NEB NEB 07/21/17 08:00 07/29/17 08:01 Terbutaline Sulfate (Brethine Inj) 1 mg UNSCH PRN SQ For Extravasation 07/21/17 00:30 Lactulose (Lactulose Liq) 30 ml DAILY PO 07/22/17 09:00 07/29/17 09:14 Hydralazine HCl (Apresoline Inj) 10 mg Q1H PRN IV PUSH SBP> OR = 180, DBP> OR = 100 07/22/17 09:45 07/24/17 19:51 Nitroglycerin (Nitroglycerin 2% Oint) 2 inch Q6H PRN TOPICAL SBP> OR = 180, DBP> OR = 100 07/22/17 09:45 Polyethylene Glycol (Miralax) 17 gm BID PO 07/23/17 21:00 07/29/17 09:15 Levetriacetam 750 mg/Sodium Chloride 107.5 ml @ 420 mls/hr Q12H IV 07/25/17 10:00 07/29/17 10:33 Famotidine (Pepcid) 20 mg Q12HR PO 07/25/17 21:00 07/29/17 09:15 Methylprednisolone Sodium Succinate 1000 mg/Sodium Chloride 116 ml @ 232 mls/hr Q24H IV 07/26/17 06:00 07/29/17 06:08 Norepinephrine Bitartrate 4 mg/ Sodium Chloride 250 ml @ 7.5 mls/hr TITRATE PRN IV Blood pressure management 07/26/17 09:45 07/27/17 06:00 Terbutaline Sulfate (Brethine Inj) 1 mg UNSCH PRN SQ For Extravasation 07/26/17 09:45 Propofol 100 ml @ 3.102 mls/ hr TITRATE PRN IV SEDATION 07/26/17 11:00 07/29/17 10:40 Fentanyl Citrate 250 ml @ 5 mls/hr TITRATE PRN IV SEDATION 07/26/17 11:00 07/28/17 23:03 Nicardipine HCl 50 mg/Sodium Chloride 500 ml @ 50 mls/hr TITRATE PRN IV Blood pressure management 07/26/17 17:30 07/29/17 06:47 Lactobacillus Acidophilus (Lactinex) 1 tab TID PO 07/28/17 18:00 07/29/17 09:15 Miscellaneous Information ([facility] Ordered Lab Info) SPECIFIC LAB TO BE DRAWN:VANCO DATE TO... ONCE ONCE .XX 07/30/17 03:45 07/30/17 03:46 Amlodipine Besylate (Norvasc) 5 mg BID PO 07/29/17 09:00 07/29/17 09:15 Furosemide (Lasix Inj) 40 mg BID@,18 IV PUSH 07/29/17 09:00 07/29/17 09:14 Lisinopril (Prinivil) 10 mg DAILY PO 07/29/17 09:00 07/29/17 09:15 (Nikky Granados) Medical Decision Making MDM Remarks 66-year-old male found unresponsive MRI brain showed multiple infarcts to both bilateral supratentorial hemispheres and cerebellar hemisphere with mass-effect into the fourth ventricle and associated hydrocephalus Status post cerebellar decompressive craniectomy with placement of ventriculostomy drain Tox screen positive for multiple drugs including cocaine, cannabinoids, barbiturates, and opioids Follow-up CT head 07/27: With improvement of ventriculomegaly, evolving bilateral infarcts, diffuse swelling with mass effect on the brainstem and posterior fossa with effacement of the fourth ventricle (Nikky Granados) Plan Plan Remarks continue close neuro checks and ISC restart sedation as needed cont bp control, ok up to [address] Sofia continue ventriculostomy draining with ICP monitor follow-up sodium levels, restart hyperosmotic saline with levels decreases below 150 continue seizure prophylaxis dw son in room (Nikky Granados) Attending Statement The exam, history, and the medical decision-making described in the above note were completed with the assistance of the mid-level provider. I reviewed and agree with the findings presented. I attest that I had a [id number] encounter with the patient on the same day, and personally performed and documented my assessment and findings in the medical record. (Tucker Sofia MD) Nikky Granados July 29, 2017 11:39 Tucker Sofia MD July 29, 2017 14:33
[2017-07-29 13:05] LABS: CSF CRYPTOCOCCUS AG CONF ND (NOT DETECTD)
--- NOTE | 2017-07-29 14:51 | MB ---
cc: Navid Corrales MD DATE: 07/26/2017 HISTORY OF PRESENT ILLNESS: Shlomo is currently intubated, so history is obtained from the chart. I did speak to his , who notes that the patient has been treated for hypertension prior to admission. 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 The patient also has a history of colonic volvulus, COPD, cervical laminectomy, left rotator cuff repair, appendectomy, partial colectomy. MEDICATIONS PRIOR TO ADMISSION: Albuterol inhaler, rosuvastatin 10 mg Sunday, Sunday, Sunday, amlodipine 5 mg daily, trazodone, valsartan 320 daily. SOCIAL HISTORY: Smokes 2 packs of cigarettes a day since age 17. Drinks alcohol socially. MEDICATIONS IN THE HOSPITAL: Nicardipine p.r.n., Propofol drip, fentanyl drip, norepinephrine p.r.n., methylprednisolone IV drip, acyclovir IV every 8 hours. PHYSICAL EXAMINATION: VITAL SIGNS: Blood pressure 116/60, pulse 62, temperature 98.5, sats 93% on 40% oxygen. GENERAL: He is intubated and sedated. NECK: Supple. No JVD. No bruit. HEART: S1, S2. No murmurs, rubs or gallop, sounds clear to auscultation bilaterally. ABDOMEN: Soft, nontender, nondistended, with positive bowel sounds. EXTREMITIES: No lower extremity edema. IMAGING: Chest x-ray today shows mild interval improvement in bilateral airspace disease, left pleural effusion remains. Brain MRI from 08/04/2017, worsening brain appearance, with developing hydrocephalus, which is presumably related to increasing edema in the posterior fossa. Head CT 07/25/2017, new right frontal ventriculostomy tube in good position, worsening effacement of the basal cisterns and cortical sulci. Low density at the periphery of the parietal and occipital lobes, concerning for evolving infarcts. Low density seen in the mid inferior cerebral hemispheres bilaterally, with mass effect on the 4th ventricle. Head brain magnetic resonance venography, patent dural sinuses. Brain MRI 07/21/2017 multifocal areas of restricted diffusion, recent ischemia within the centrum semiovale bilaterally, bilateral occipital lobes, bilateral basal ganglia, bilateral temporal lobes, bilateral cerebral hemispheres. Findings could be related to global anoxic event or less likely embolic phenomena. STUDIES: EKG, normal sinus rhythm at 85 beats per minute. Holter monitor on 07/21/2017, sinus rhythm, occasional PVCs, rare PACs. LABORATORY DATA: White count 10.9, hemoglobin 11.6, hematocrit 35.1, platelet count 429, INR 1.1. Sodium 146, potassium 4.6, chloride 111, BUN 10, creatinine 0.67, AST 106, ALT 115, CK of 1774, albumin 2.1. Blood gas on 07/21/2017, pH 7.27, pCO2 59, pO2 75. Blood gas 07/25/2017, pH 7.3, pCO2 46, pO2 of 76. Toxicology is positive for amphetamines, benzodiazepines, cocaine, cannabinoids, opiates. Blood cultures are negative. HE HAS THE FOLLOWING DIAGNOSES: 1. Cerebrovascular accident. 2. Hydrocephalus. 3. Possible encephalitis. 4. Cerebral edema. 5. Anemia. 6. Elevated white count. 7. Respiratory acidosis, with hypercapnic respiratory failure. 8. Polysubstance abuse. 9. Hypernatremia. 10. Elevated liver enzymes. 11. He had a 2D echo which showed ejection fraction 55%, PA pressure 26 mmHg. DISCUSSION: At this point in time, the patient has normal LV function, with normal PA pressures. Appears to be hemodynamically stable. If the patient needs a transesophageal echo, I am not sure if he is neurologically stable to undergo this or how much this will change his outcome. We will need to discuss risks and benefits with Neurology and the patient's . MD NANCY Sneed/ALEYDA , 07:49 PM , 08:49 PM
--- NOTE | 2017-07-29 14:58 | HHI.IDPN ---
Note Infectious Disease Note ID coverage. Notes reviewed. Patient admitted with altered mental status. Afebrile. Sedated. Noted to be agitated when sedation is weaned. CSF as no growth. One blood culture bottle has been positive cocci. Off antibiotics. Allergies: Coded Allergies: No Known Allergies (Verified Allergy, Unknown, 07/20/17) Current Medications Medications (Trade) Dose Ordered Sig/Claudia Route PRN Reason Start Time Stop Time Status Last Admin Dose Admin Sodium Chloride (NS Flush) 2 ml UNSCH PRN IV FLUSH FLUSH AFTER USING IV ACCESS 07/21/17 00:00 Sodium Chloride (NS Flush) 2 ml BID IV FLUSH 07/21/17 09:00 07/29/17 09:16 Artificial Tears (Tears Naturale Opth Soln) 1 drop TID EACH EYE 07/21/17 09:00 07/29/17 12:32 Ondansetron HCl (Zofran Inj) 4 mg Q6H PRN IV PUSH NAUSEA OR VOMITING 07/21/17 00:00 Albuterol Sulfate (Albuterol Neb) 2.5 mg Q2HR NEB PRN INH SOB/WHEEZING 07/21/17 00:00 07/29/17 08:01 Miscellaneous Information ([facility] [place] [facility] 1 Q361D XX 07/21/17 00:00 07/21/17 00:00 Chlorhexidine Gluconate (Chlorhexidine 2% Cloth) Taper DAILY@04 TOP 07/21/17 04:00 07/17/18 03:59 07/25/17 04:00 Chlorhexidine Gluconate (Chlorhexidine 2% Cloth) 3 pack UNSCH PRN TOP HYGIENIC CARE 07/21/17 00:00 Senna/Docusate Sodium (Dilia-Colace) 1 tab BID PO 07/21/17 09:00 07/29/17 09:15 Magnesium Hydroxide (Milk Of Magnesia Liq) 30 ml Q12H PRN PO Mild constipation 07/21/17 00:00 Sennosides (Senokot) 17.2 mg Q12H PRN PO Moderate constipation 07/21/17 00:00 Bisacodyl (Dulcolax Supp) 10 mg DAILY PRN RECTAL SEVERE CONSITIPATION 07/21/17 00:00 Lactulose (Lactulose Liq) 30 ml DAILY PRN PO SEVERE CONSITIPATION 07/21/17 00:00 Chlorhexidine Gluconate (Peridex 0.12% Liq) 15 ml BID@08,20 MT 07/21/17 08:00 07/29/17 09:16 Dextrose (D50w (Vial) Inj) 50 ml UNSCH PRN IV PUSH HYPOGLYCEMIA-SEE COMMENTS 07/21/17 00:00 Glucagon (Glucagon Inj) 1 mg UNSCH PRN OTHER HYPOGLYCEMIA-SEE COMMENTS 07/21/17 00:00 Insulin Aspart (NovoLOG SUPPLEMENTAL SCALE) 1 Q6HR SQ 07/21/17 00:00 07/29/17 12:32 Budesonide (Pulmicort Respule Neb) 0.5 mg Q12HR NEB NEB 07/21/17 08:00 07/29/17 08:01 Terbutaline Sulfate (Brethine Inj) 1 mg UNSCH PRN SQ For Extravasation 07/21/17 00:30 Lactulose (Lactulose Liq) 30 ml DAILY PO 07/22/17 09:00 07/29/17 09:14 Hydralazine HCl (Apresoline Inj) 10 mg Q1H PRN IV PUSH SBP> OR = 180, DBP> OR = 100 07/22/17 09:45 07/24/17 19:51 Nitroglycerin (Nitroglycerin 2% Oint) 2 inch Q6H PRN TOPICAL SBP> OR = 180, DBP> OR = 100 07/22/17 09:45 Polyethylene Glycol (Miralax) 17 gm BID PO 07/23/17 21:00 07/29/17 09:15 Levetriacetam 750 mg/Sodium Chloride 107.5 ml @ 420 mls/hr Q12H IV 07/25/17 10:00 07/29/17 10:33 Famotidine (Pepcid) 20 mg Q12HR PO 07/25/17 21:00 07/29/17 09:15 Methylprednisolone Sodium Succinate 1000 mg/Sodium Chloride 116 ml @ 232 mls/hr Q24H IV 07/26/17 06:00 07/29/17 06:08 Norepinephrine Bitartrate 4 mg/ Sodium Chloride 250 ml @ 7.5 mls/hr TITRATE PRN IV Blood pressure management 07/26/17 09:45 07/27/17 06:00 Terbutaline Sulfate (Brethine Inj) 1 mg UNSCH PRN SQ For Extravasation 07/26/17 09:45 Propofol 100 ml @ 3.102 mls/ hr TITRATE PRN IV SEDATION 07/26/17 11:00 07/29/17 10:40 Fentanyl Citrate 250 ml @ 5 mls/hr TITRATE PRN IV SEDATION 07/26/17 11:00 07/28/17 23:03 Nicardipine HCl 50 mg/Sodium Chloride 500 ml @ 50 mls/hr TITRATE PRN IV Blood pressure management 07/26/17 17:30 07/29/17 06:47 Lactobacillus Acidophilus (Lactinex) 1 tab TID PO 07/28/17 18:00 07/29/17 12:33 Miscellaneous Information ([facility] Ordered Lab Info) SPECIFIC LAB TO BE DRAWN:VANCO DATE TO... ONCE ONCE .XX 07/30/17 03:45 07/30/17 03:46 Amlodipine Besylate (Norvasc) 5 mg BID PO 07/29/17 09:00 07/29/17 09:15 Furosemide (Lasix Inj) 40 mg BID@ IV PUSH 07/29/17 09:00 07/29/17 09:14 Lisinopril (Prinivil) 10 mg DAILY PO 07/29/17 09:00 07/29/17 09:15 Objective: Vital Signs Date Time Temp Pulse Resp B/P (MAP) Pulse Ox O2 Delivery O2 Flow Rate FiO2 07/29/17 11:42 94 40 07/29/17 08:04 40 07/29/17 08:04 95 40 07/29/17 08:00 54 07/29/17 08:00 98.9 53 10 129/63 (85) 95 07/29/17 08:00 40 07/29/17 06:47 53 152/72 07/29/17 04:40 99 40 07/29/17 04:00 40 07/29/17 02:00 57 07/29/17 00:19 96 40 07/29/17 00:00 98.7 54 25 139/67 (91) 95 07/29/17 00:00 54 07/29/17 00:00 40 07/28/17 22:00 64 07/28/17 21:43 61 149/70 07/28/17 21:08 96 40 07/28/17 20:00 70 07/28/17 20:00 98.8 70 25 157/72 (100) 96 07/28/17 20:00 40 07/28/17 18:00 78 07/28/17 16:00 98.9 61 24 118/59 (78) 94 07/28/17 16:00 40 07/28/17 16:00 62 07/28/17 15:39 94 40 Laboratory Tests Test 07/28/17 04:10 White Blood Count 8.9 TH/MM3 Red Blood Count 3.04 MIL/MM3 Hemoglobin 9.7 GM/DL Hematocrit 28.6 % Mean Corpuscular Volume 94.2 FL Mean Corpuscular Hemoglobin 31.9 PG Mean Corpuscular Hemoglobin Concent 33.9 % Red Cell Distribution Width 13.8 % Platelet Count 367 TH/MM3 Mean Platelet Volume 7.4 FL Neutrophils (%) (Auto) 69.9 % Lymphocytes (%) (Auto) 16.3 % Monocytes (%) (Auto) 13.6 % Eosinophils (%) (Auto) 0.0 % Basophils (%) (Auto) 0.2 % Neutrophils # (Auto) 6.2 TH/MM3 Lymphocytes # (Auto) 1.4 TH/MM3 Monocytes # (Auto) 1.2 TH/MM3 Eosinophils # (Auto) 0.0 TH/MM3 Basophils # (Auto) 0.0 TH/MM3 CBC Comment DIFF FINAL Differential Comment Laboratory Tests Test 07/27/17 16:00 07/27/17 16:56 07/28/17 00:28 07/28/17 04:10 Serum Osmolality 320 MOSM/KG Sodium Level 153 MEQ/L 155 MEQ/L 154 MEQ/L Blood Urea Nitrogen 23 MG/DL Creatinine 0.83 MG/DL Random Glucose 122 MG/DL Total Protein 4.9 GM/DL Albumin 2.1 GM/DL Calcium Level 7.5 MG/DL Phosphorus Level 2.8 MG/DL Magnesium Level 2.6 MG/DL Alkaline Phosphatase 63 U/L Aspartate Amino Transf (AST/SGOT) 56 U/L Alanine Aminotransferase (ALT/SGPT) 105 U/L Total Bilirubin 0.1 MG/DL Potassium Level 3.3 MEQ/L Chloride Level 121 MEQ/L Carbon Dioxide Level 29.2 MEQ/L Anion Gap 4 MEQ/L Estimat Glomerular Filtration Rate 93 ML/MIN Total Creatine Kinase 805 U/L Creatine Kinase MB 1.7 NG/ML Creatine Kinase MB % 0.2 % Test 07/28/17 12:55 07/28/17 19:33 07/29/17 03:55 07/29/17 10:31 Sodium Level 155 MEQ/L 154 MEQ/L 155 MEQ/L 154 MEQ/L Serum Osmolality 328 MOSM/KG 331 MOSM/KG Blood Urea Nitrogen 26 MG/DL 28 MG/DL Creatinine 0.76 MG/DL 0.89 MG/DL Random Glucose 167 MG/DL 154 MG/DL Total Protein 5.0 GM/DL Albumin 2.0 GM/DL Calcium Level 7.7 MG/DL 7.9 MG/DL Alkaline Phosphatase 71 U/L Aspartate Amino Transf (AST/SGOT) 58 U/L Alanine Aminotransferase (ALT/SGPT) 127 U/L Total Bilirubin 0.1 MG/DL Potassium Level 3.7 MEQ/L 3.9 MEQ/L Chloride Level 121 MEQ/L 120 MEQ/L Carbon Dioxide Level 28.7 MEQ/L 26.7 MEQ/L Anion Gap 5 MEQ/L 7 MEQ/L Estimat Glomerular Filtration Rate 103 ML/MIN 86 ML/MIN Microbiology Date/Time Source Procedure Growth Status 07/28/17 07:35 Blood Peripheral Aerobic Blood Culture - Preliminary NO GROWTH IN 1 DAY Resulted 07/28/17 07:35 Anaerobic Blood Culture - Preliminary Gram Positive Cocci Resulted 07/27/17 15:16 Blood Peripheral Aerobic Blood Culture - Preliminary Staphylococcus Epidermidis Resulted 07/27/17 15:16 Blood Peripheral Anaerobic Blood Culture - Preliminary NO GROWTH IN 2 DAYS Resulted 07/27/17 16:30 Sputum Endotracheal Gram Stain - Final Complete 07/27/17 16:30 Sputum Endotracheal Sputum Culture - Final LIGHT GROWTH NORMAL RESPIRATORY LUBA Complete Imaging Chest X-Ray [id number]/29/17599 Signed Impressions: Service Date/Time: Saturday, July 29, 2017 04:18 - CONCLUSION: No significant change. Buck Henry MD Head CT [id number]/27/17599 Signed Impressions: Service Date/Time: Thursday, July 27, 2017 13:39 - CONCLUSION: 1. Decrease in ventricular size since July 25. Extensive low attenuation and swelling in both occipital lobes and also in the periventricular region, basal ganglia and focally in the right occipital lobe. Differential diagnosis includes edema or evolving infarcts. There is mass effect on the brainstem and posterior fossa with effacement of the fourth ventricle. Ananda Messina MD Chest X-Ray 07/27/17 Signed Impressions: Service Date/Time: Thursday, July 27, 2017 18:23 - CONCLUSION: 1. Tracheostomy tube in good position. 2. Unchanged left effusion and bilateral lower lobe infiltrates. Oumar Bray Jr., MD Abdomen X-Ray 07/27/17 Signed Impressions: Service Date/Time: Thursday, July 27, 2017 20:37 - CONCLUSION: NG tube coiled in the lower thoracic esophagus. Oumar Bray Jr., MD Head/Brain Mag Res Venography 07/25/17 Signed Impressions: Service Date/Time: Tuesday, July 25, 2017 19:54 - CONCLUSION: Patent dural sinuses. Lonnie Munguia MD Brain MRI 07/25/17 Signed Impressions: Service Date/Time: Tuesday, July 25, 2017 10:37 - CONCLUSION: Worsening brain appearance with developing hydrocephalus which is presumably related to increasing edema in the posterior fossa. See above discussion. Lonnie Lock MD Neck Magnetic Resonance Angiography 07/21/17 Signed Impressions: Service Date/Time: Friday, July 21, 2017 08:40 - CONCLUSION: No acute neck arteriovascular abnormality is identified. There is no significant stenosis within either internal carotid artery. Lonnie Ross MD Head Magnetic Resonance Angiography 07/21/17 Signed Impressions: Service Date/Time: Friday, July 21, 2017 08:40 - CONCLUSION: No acute intracranial vascular abnormality is identified. Lonnie Ross MD Abdomen Ultrasound 07/21/17 Signed Impressions: Service Date/Time: Friday, July 21, 2017 15:47 - CONCLUSION: Cholelithiasis. No gallbladder wall thickening or pericholecystic fluid. Victor Manuel Barros MD Physical Exam GENERAL: Unresponsive on the ventilator. Currently on CPAP. HEENT: No icterus. NECK: No adenopathy or swelling. LUNGS: Decreased breath sounds. No rhonchi. HEART: Regular S1 and S2 without murmurs. ABDOMEN: Bowel sounds present, soft, nontender. Total edema. EXTREMITIES: No clubbing or cyanosis. Trace edema. SKIN: No rash. NEUROLOGIC: Unable to assess. Patient is sedated. PSYCH: Unable to assess. Impression. Abbnormal CSF - R/o meningoencephalits overall neither radiological studies nor clinical presentation favours meningoencephalitis - not cw bacterial meningitis. after embolic strokes and anoxia the meningoencepahlitis down on diff dx list - AKILAH not feasible at this point per hvac tech Acute VDRF ARF 2/2 rhabdo: resolved New fever - resolved Likely PNA: sputum purulent with many GPC in pairs Monitor blood culture. The one positive blood culture is probably contaminant. Monitor sputum culture. chk stool for C.diff if more diarrhea Discussed with RN. Discussed with at bedside. Venu Mays MD July 29, 2017 14:58
[2017-07-29] MEDS: fentaNYL DRIP 250 ML IV PRN (15:52)
--- NOTE | 2017-07-29 19:25 | PD.CARD.PN ---
Subjective Subjective Remarks trached, sedated Objective Medications Current Medications Medications (Trade) Dose Ordered Sig/Claudia Route Start Time Stop Time Status Last Admin (NS Flush) 2 ml UNSCH PRN IV FLUSH 07/21/17 00:00 (NS Flush) 2 ml BID IV FLUSH 07/21/17 09:00 07/29/17 09:16 (Tears Naturale Opth Soln) 1 drop TID EACH EYE 07/21/17 09:00 07/29/17 18:22 (Zofran Inj) 4 mg Q6H PRN IV PUSH 07/21/17 00:00 (Albuterol Neb) 2.5 mg Q2HR NEB PRN INH 07/21/17 00:00 07/29/17 08:01 ([facility] [place] [facility] Information) 1 Q361D XX 07/21/17 00:00 07/21/17 00:00 (Chlorhexidine 2% Cloth) Taper DAILY@04 TOP 07/21/17 04:00 07/17/18 03:59 07/25/17 04:00 (Chlorhexidine 2% Cloth) 3 pack UNSCH PRN TOP 07/21/17 00:00 (Dilia-Colace) 1 tab BID PO 07/21/17 09:00 07/29/17 09:15 (Milk Of Magnesia Liq) 30 ml Q12H PRN PO 07/21/17 00:00 (Senokot) 17.2 mg Q12H PRN PO 07/21/17 00:00 (Dulcolax Supp) 10 mg DAILY PRN RECTAL 07/21/17 00:00 (Lactulose Liq) 30 ml DAILY PRN PO 07/21/17 00:00 (Peridex 0.12% Liq) 15 ml BID@08,20 MT 07/21/17 08:00 07/29/17 09:16 (D50w (Vial) Inj) 50 ml UNSCH PRN IV PUSH 07/21/17 00:00 (Glucagon Inj) 1 mg UNSCH PRN OTHER 07/21/17 00:00 (NovoLOG SUPPLEMENTAL SCALE) 1 Q6HR SQ 07/21/17 00:00 07/29/17 12:32 (Pulmicort Respule Neb) 0.5 mg Q12HR NEB NEB 07/21/17 08:00 07/29/17 08:01 (Brethine Inj) 1 mg UNSCH PRN SQ 07/21/17 00:30 (Lactulose Liq) 30 ml DAILY PO 07/22/17 09:00 07/29/17 09:14 (Apresoline Inj) 10 mg Q1H PRN IV PUSH 07/22/17 09:45 07/24/17 19:51 (Nitroglycerin 2% Oint) 2 inch Q6H PRN TOPICAL 07/22/17 09:45 (Miralax) 17 gm BID PO 07/23/17 21:00 07/29/17 09:15 Levetriacetam 750 mg/Sodium Chloride 107.5 ml @ 420 mls/hr Q12H IV 07/25/17 10:00 07/29/17 10:33 (Pepcid) 20 mg Q12HR PO 07/25/17 21:00 07/29/17 09:15 Methylprednisolone Sodium Succinate 1000 mg/Sodium Chloride 116 ml @ 232 mls/hr Q24H IV 07/26/17 06:00 07/29/17 06:08 Norepinephrine Bitartrate 4 mg/ Sodium Chloride 250 ml @ 7.5 mls/hr TITRATE PRN IV 07/26/17 09:45 07/27/17 06:00 (Brethine Inj) 1 mg UNSCH PRN SQ 07/26/17 09:45 Propofol 100 ml @ 3.102 mls/ hr TITRATE PRN IV 07/26/17 11:00 07/29/17 18:59 Fentanyl Citrate 250 ml @ 5 mls/hr TITRATE PRN IV 07/26/17 11:00 07/29/17 15:52 Nicardipine HCl 50 mg/Sodium Chloride 500 ml @ 50 mls/hr TITRATE PRN IV 07/26/17 17:30 07/29/17 06:47 (Lactinex) 1 tab TID PO 07/28/17 18:00 07/29/17 18:21 ([facility] [place] [facility] Ordered Lab Info) SPECIFIC LAB TO BE DRAWN:VANCO DATE TO... ONCE ONCE .XX 07/30/17 03:45 07/30/17 03:46 (Norvasc) 5 mg BID PO 07/29/17 09:00 07/29/17 09:15 (Lasix Inj) 40 mg BID@18 IV PUSH 07/29/17 09:00 07/29/17 18:21 (Prinivil) 10 mg DAILY PO 07/29/17 09:00 07/29/17 09:15 Vital Signs / I&O Vital Signs Date Time Temp Pulse Resp B/P (MAP) Pulse Ox O2 Delivery O2 Flow Rate FiO2 07/29/17 18:00 53 07/29/17 17:36 93 40 07/29/17 16:00 62 07/29/17 16:00 98.0 62 12 145/68 (93) 93 07/29/17 16:00 40 07/29/17 14:00 52 07/29/17 12:00 98.1 62 11 145/65 (91) 94 07/29/17 12:00 40 07/29/17 12:00 62 07/29/17 11:42 94 40 07/29/17 10:00 60 07/29/17 08:04 40 07/29/17 08:04 95 40 07/29/17 08:00 54 07/29/17 08:00 98.9 53 10 129/63 (85) 95 07/29/17 08:00 40 07/29/17 06:47 53 152/72 07/29/17 04:40 99 40 07/29/17 04:00 40 07/29/17 02:00 57 07/29/17 00:19 96 40 07/29/17 00:00 98.7 54 25 139/67 (91) 95 07/29/17 00:00 54 07/29/17 00:00 40 07/28/17 22:00 64 07/28/17 21:43 61 149/70 07/28/17 21:08 96 40 07/28/17 20:00 70 07/28/17 20:00 98.8 70 25 157/72 (100) 96 07/28/17 20:00 40 I/O 07/28/17 07/28/17 07/28/17 07/29/17 07/29/17 07/29/17 07:00 15:00 23:00 07:00 15:00 23:00 Intake Total 1181 ml 100 ml 1025 ml 654 ml 1458 ml Output Total 794 ml 940 ml 880 ml 2485 ml Balance 387 ml 100 ml 85 ml -226 ml -1027 ml IV Total 950 ml 100 ml 100 ml 557 ml Tube Feeding 231 ml 725 ml 654 ml 781 ml Other 200 ml 120 ml Output Urine Total 700 ml 850 ml 800 ml 2400 ml Drainage Total 94 ml 90 ml 80 ml 85 ml # Bowel Movements 1 0 0 3 Physical Exam GENERAL: SKIN: Warm and dry. HEAD: Normocephalic. EYES: No scleral icterus. No injection or drainage. NECK: Supple, trachea midline. No JVD or lymphadenopathy. CARDIOVASCULAR: Regular rate and rhythm without murmurs, gallops, or rubs. RESPIRATORY: Breath sounds equal bilaterally. No accessory muscle use. GASTROINTESTINAL: Abdomen soft, non-tender, nondistended. MUSCULOSKELETAL: No cyanosis, or edema. BACK: Nontender without obvious deformity. No CVA tenderness. Laboratory Laboratory Tests Test 07/28/17 19:33 07/29/17 03:55 07/29/17 10:31 Sodium Level 154 MEQ/L 155 MEQ/L 154 MEQ/L Serum Osmolality 331 MOSM/KG Blood Urea Nitrogen 26 MG/DL 28 MG/DL Creatinine 0.76 MG/DL 0.89 MG/DL Random Glucose 167 MG/DL 154 MG/DL Total Protein 5.0 GM/DL Albumin 2.0 GM/DL Calcium Level 7.7 MG/DL 7.9 MG/DL Alkaline Phosphatase 71 U/L Aspartate Amino Transf (AST/SGOT) 58 U/L Alanine Aminotransferase (ALT/SGPT) 127 U/L Total Bilirubin 0.1 MG/DL Potassium Level 3.7 MEQ/L 3.9 MEQ/L Chloride Level 121 MEQ/L 120 MEQ/L Carbon Dioxide Level 28.7 MEQ/L 26.7 MEQ/L Anion Gap 5 MEQ/L 7 MEQ/L Estimat Glomerular Filtration Rate 103 ML/MIN 86 ML/MIN Imaging Last 24 hours Impressions Chest X-Ray 07/29/17 0600 Signed Impressions: Service Date/Time: Saturday, July 29, 2017 04:18 - CONCLUSION: No significant change. Buck Henry MD Assessment and Plan Problem List: (1) Toxic metabolic encephalopathy ICD Codes: G92 - Toxic encephalopathy (2) Tetrahydrocannabinol (THC) use disorder, mild, abuse ICD Codes: F12.10 - Cannabis abuse, uncomplicated (3) Encephalopathy ICD Codes: G93.40 - Encephalopathy, unspecified (4) Stroke ICD Codes: I63.9 - Cerebral infarction, unspecified (5) Chronic, continuous use of opioids ICD Codes: F11.90 - Opioid use, unspecified, uncomplicated (6) Cocaine use ICD Codes: F14.90 - Cocaine use, unspecified, uncomplicated Assessment and Plan 1.) I am not sure if he is stable enough to undergo head and neck manipulation to undergo swapnil; he is intubated so i cant assess his ability to swallow; will consider swapnil if risk benefit ratio favors it, he is cleared by neurology and neurosurgery for head and neck manipulation and if findings may chemical cell changer 2.) D/w Dr Epperson 07/28/17; agrees that swapnil will not change short term management and put patient at risk of neurologic injury from neck manipulation during swapnil, d/w nurse at bedside as well Navid Corrales MD July 29, 2017 19:25
[2017-07-30] VITALS (19 sets, daily range): BP systolic 136–169; BP diastolic 62–76; PULSE 48–82; RESP 14–20; TEMP 98.7–99.3; O2SAT 95–100
[2017-07-30] MEDS: PROPOFOL 1000 MG/100 ML INJ 100 ML IV PRN ×6 (01:25→20:00)
[2017-07-30] MEDS ORDERED: PHARMACY ORDERED LAB ONE (03:45)
[2017-07-30] MEDS: CHLORHEXIDINE GLUCONATE 2 % 1 PACK (2 CLOTHS) TOP SCH (04:00)
[2017-07-30 04:31] LABS: AUTOMATED NEUTROPHIL # 7.3 TH/MM3 (1.8-7.7); HEMATOCRIT 27.9 % (39.0-51.0); HEMOGLOBIN 9.6 GM/DL (13.0-17.0); LYMPHOCYTE # 1.1 TH/MM3 (1.0-4.8); MEAN CELL VOLUME 94.8 FL (80.0-100.0); MEAN CORPUSCULAR HEMOGLOBIN 32.7 PG (27.0-34.0); MEAN CORPUSCULAR HGB CONC 34.5 % (32.0-36.0); MEAN PLATELET VOLUME 7.4 FL (7.0-11.0); MONO % 10.4 % (0.0-8.0); NEUT % 77.6 % (16.0-70.0); PLATELET COUNT 410 TH/MM3 (150-450); RED BLOOD COUNT 2.95 MIL/MM3 (4.50-5.90); RED CELL DISTRIBUTION WIDTH 14.1 % (11.6-17.2); WHITE BLOOD COUNT 9.4 TH/MM3 (4.0-11.0)
[2017-07-30 05:02] LABS: BICARBONATE 30.1 MEQ/L (21.0-32.0); CALCIUM 7.5 MG/DL (8.5-10.1); CREATININE 0.84 MG/DL (0.60-1.30); MAGNESIUM 2.7 MG/DL (1.5-2.5)
[2017-07-30 05:03] LABS: PHOSPHORUS 3.8 MG/DL (2.5-4.9)
[2017-07-30 05:04] LABS: VANCOMYCIN TROUGH 6.3 MCG/ML (5.0-10.0)
[2017-07-30] MEDS: INSULIN ASPART SUPPLEMENTAL SCALE SQ SCH ×3 (05:09→17:49)
[2017-07-30] MEDS: methylPREDNISolone SO SUCC INJ 1,000 MG in SODIUM CHLORIDE 0.9% INJ 100 ML IV SCH (06:14)
[2017-07-30] MEDS ORDERED: POTASSIUM CHLORIDE 25 MEQ EFFERVESCENT TAB PO ONE (07:45)
--- NOTE | 2017-07-30 07:52 | HHI.CCPN ---
Subjective Remarks/Hospital Course This is a 66-year-old male. Date of admission 07/20/2017. Past medical history includes hypertension, hyperlipidemia, COPD with ongoing tobacco abuse, peptic ulcer disease and anxiety. He also has history of lumbar stenosis, degenerative joint disease of the back and cervical spine. He presents to [facility] with the following history. 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 According to his at bedside, patient is drug tested. Patient returned home from work on Sunday after his 30 day work schedule. Patient was changing the tire of a bike friend yesterday. Patient returned home in no acute distress. Today, patient was tired and was sleeping all day. Initially patient had similar symptoms at lunch. When the attempted to wake him up later this evening patient be was nonresponsive with a weak pulse. She attempted to use ammonia without response. At that time EMS was called and patient was transferred to [facility]. Patient was noted to be an acute change with a creatinine of 3.8. Baseline is normal. Potassium is 7.4 without EKG changes. Patient received bicarbonate, insulin/D50, calcium and Kayexalate in the ED. Repeat potassium 3 hours. Patient is making urine and appears concentrated. UA is pending. Patient leukocytosis 13,000. CPK was 5000. Lactic acid was 2.6. Urine drug screen revealed positive for opiates, amphetamines, benzodiazepines, THC and cocaine. Head CT is currently pending. Due to altered mental status patient was admitted after receiving 20 mg etomidate and 100 mg succinylcholine by ED physician. Patient also received 4 mg of midazolam and after which patient became hypotensive is currently receiving 3 L normal saline wide open. Head CT is currently pending. Patient received clindamycin along with piperacillin/ tazobactam in the ED. 07/21: Overnight the patient required to protamine infusion low-dose currently being weaned off. The patient continues on fentanyl and propofol infusion for ventilator synchrony. Patient's undergoing MRI evaluation results pending. The patient was noted to have significant elevation in creatinine kinase the patient is bolused 1 L IV fluids increase in normal saline 200 cc/hr. Lactic acid downtrending will continue to trend creatinine noted to be decreasing. 07/22: Currently afebrile. Off all vasopressors. We will switch to LR at 200 cc an hour. Recheck BMP this afternoon. Moving all 4 x-rays spontaneously right upper extremity less. Opens eyes but not following commands. Positive gag and corneal reflex. Subjective: 07/23: Currently on dexmedetomidine drip at 0.7 mg/kg/h. Minimal response to distinguish. Will hold at the present time and reassess neurological condition. EEG showed no epileptiform activity. Tolerating tube feeding. No bowel movement since admission. Currently afebrile. 07/24: Per nursing staff patient was off sedation over the night and he woke up and followed some simple commands, but due to agitation, hypertension and tachycardia patient was restarted on sedation. He is currently on Precedex at 1 , tolerating CPAP, sedated. T-max of 99. I/O 3029/1451. 07/25: No events over the night. This morning while attempting CPAP trial patient became rigid, unresponsive, with gaze deviation, tachypneic tachycardic and hypertensive, suggesting seizure activity. Patient was immediately given Ativan 2 mg 1 with resolution of episode. Neurology was contacted and plan for EEG and CT head as well as propofol infusion. No family present at bedside. T-max of 100.7 over the night. Urine output 2300 mL's over the last 24 hours. 07/26: EVD placed yesterday for declining mental status with hydrocephalus and severe cerebellar edema. this AM, extensor posturing. supratentorial ICPs controlled, but cerebellar edema persists. discussed with Dr. Castillo: csf could be consistent with encephalitis. d/w Dr. Barrow: will need posterior fossa decompression. 07/27: no improvements in mental status. s/p suboccipital crani yesterday. remains intermittently on cardene and levophed to maintain cpp. ICP controlled. brain biopsies pending. 07/28: Osmolality suitably concentrated. ICP well controlled. Maintaining head up position. On attempted CPAP trial patient has 25 second periods of apnea. Unstable neurological status we will not stress him with extended spontaneous breathing trials. 07/29: Requiring Cardene still to maintain systolic blood pressure less than 160. Markedly edematous and will need to start active diuresis. No change in neurologic function. Apnea episodes persist. 07/30: off cardene. still grossly volume overloaded. neuro exam remains poor. Objective Vital Signs Date Time Temp Pulse Resp B/P (MAP) Pulse Ox O2 Delivery O2 Flow Rate FiO2 07/30/17 06:00 48 07/30/17 04:03 99 40 07/30/17 04:00 98.7 20 161/76 (104) Intake and Output 07/30/17 07/30/17 07/31/17 08:00 16:00 00:00 Intake Total 942 ml Output Total 1880 ml Balance -938 ml Result Diagram: 07/30/17 0410 07/30/17 0410 Other Results Microbiology Date/Time Source Procedure Growth Status 07/27/17 16:30 Sputum Endotracheal Gram Stain - Final Complete 07/27/17 16:30 Sputum Endotracheal Sputum Culture - Final LIGHT GROWTH NORMAL RESPIRATORY LUBA Complete Imaging Last 24 hours Impressions Chest X-Ray 07/24/17 0600 Signed Impressions: Service Date/Time: Monday, July 24, 2017 03:41 - CONCLUSION: Patchy diffuse interstitial prominence and pulmonary vascular prominence unchanged. Ankur Shields MD Last Impressions Chest X-Ray 07/23/17 0600 Signed Impressions: Service Date/Time: Sunday, July 23, 2017 04:10 - CONCLUSION: Lungs grossly clear. Tubes and catheter in good position. Ankur Shields MD Neck Magnetic Resonance Angiography 07/21/17 0000 Signed Impressions: Service Date/Time: Friday, July 21, 2017 08:40 - CONCLUSION: No acute neck arteriovascular abnormality is identified. There is no significant stenosis within either internal carotid artery. Lonnie Ross MD Head Magnetic Resonance Angiography 07/21/17 Signed Impressions: Service Date/Time: Friday, July 21, 2017 08:40 - CONCLUSION: No acute intracranial vascular abnormality is identified. Lonnie Ross MD Brain MRI 07/21/17 Signed Impressions: Service Date/Time: Friday, July 21, 2017 08:40 - CONCLUSION: Multifocal areas of restricted diffusion/recent ischemia within the centrum semiovale bilaterally, bilateral occipital lobes, bilateral basal ganglia, bilateral temporal lobes, and bilateral cerebellar hemispheres. Findings could be related to global anoxic event or less likely embolic phenomenon. Lonnie Ross MD Abdomen Ultrasound 07/21/17 Signed Impressions: Service Date/Time: Friday, July 21, 2017 15:47 - CONCLUSION: Cholelithiasis. No gallbladder wall thickening or pericholecystic fluid. Victor Manuel Barros MD Head CT 07/20/17 [id number] Signed Impressions: Service Date/Time: Friday, July 21, 2017 00:53 - CONCLUSION: Abnormal brain appearance. Recommend MRI for further evaluation Lonnie Lock MD Objective Remarks General - middle-aged gentleman, intubated, ill-appearing, unresponsive HEENT - pupils equal, dilated, reactive, sclerae anicteric, neck supple, no nuchal rigidity. CV - bradycardic rate, regular rhythm. sinus. JVD improved from yesterday. Chest - equal chest rise. full mechanical support. PRVC. fio2 40%. peep 5. Decreased breath sounds both bases. Abdomen - soft, non-tender, non-distended, no guarding. Skin - no rashes, no cyanosis, multiple tattoos bilateral upper extremities and thorax Extremities - warm and well perfused, no edema, + peripheral pulses, no clubbing Neuro - intubated via tracheostomy, off sedation, unresponsive, pupils equal and reactive, extensor posturing. Apnea episodes on spontaneous breathing. A/P Assessment and Plan Assessment: 66yM with acute encephalopathy and severe cerebellar edema of unclear etiology. very critically ill with ongoing life-threatening malignant cerebral edema in the posterior fossa. s/p suboccipital crani for decompression 07/26 and brain biopsies. continue hyperosmolar therapy and supportive care. Unlikely to have a favorable outcome. very poor prognosis. remains critically ill. goals remain aggressive. Neuro/Psych: Toxic metabolic encephalopathy Polysubstance abuse disorder - UDS positive for opiates, benzos, amphetamines, THC and cocaine Depression Anxiety disorder Possible hypoxic ischemic encephalopathy Concern for new onset seizure Malignant Cerebellar edema Elevated ICP s/p suboccipital crani 10 for decompression frequent neuro checks goal RASS -2. neurology: Dr. Castillo following neurosurgery: Dr. Barrow following. hyperosmolar therapy serial sodiums, osms Hold 3% nacl, osmolality 155. CT brain 07/21 There is patchy mild diminished attenuation in centrum semi-ovale bilaterally. There is mild heterogeneous diminished density in the genu region of internal capsules and globus pallidus bilaterally. There is vague diminished density in the cerebellar hemispheres bilaterally. There is no evidence of intracranial mass or hemorrhage. There is no abnormal extra-axial fluid accumulation or shift present. 07/21 MRI brain-Multifocal areas of restricted diffusion/recent ischemia within the centrum semiovale bilaterally, bilateral occipital lobes, bilateral basal ganglia, bilateral temporal lobes, and bilateral cerebellar hemispheres. Findings could be related to global anoxic event or less likely embolic phenomenon. 07/21 EEG revealed no epileptic activity 07/21-MRA brain/neck -no acute findings UDS + opiates, amphetamines, benzodiazepines, THC and cocaine CSF studies all negative. brain biopsies negative. EVD placed 07/25 by [facility]. CV: History of essential hypertension Hyperlipidemia Lactic acidosis -resolved Sinus bradycardia- secondary to elevated ICP Holding valsartan 320 mg p.o. daily due to hypotension/acute kidney injury Holding rosuvastatin 10 mg p.o. q. Sunday/Sunday/Sunday due to elevated LFTs. Resume when clinically indicated. amlodipine 5mg po BID lisinopril 10mg daily. TTE results reviewed, LV size normal, EF of 55%. Resp: Acute hypoxemic and hypercarbic respiratory failure Tobacco use disorder Continue PRVC Ventilator bundle Albuterol/ipratropium aerosols every 6 hours with albuterol aerosol every 2 hours as needed dyspnea budesonide 0.5/2 1 inhalation twice daily since on budesonide/formoterol 160/ 4.5 1 puff twice daily at home along with albuterol inhaler twice daily no weaning of mechanical ventilation until mental status and ICP improves wean fio2 for goal spo2 > 90% hob elevated Tracheostomy 07/28. GI: Elevated transaminases -slowly trending down Rhabdomyolysis -improving, urine output is adequate, CPK trending down Cholelithiasis CK levels-5000->55485->20K --> 5930 --> 3370 07/21 Liver ultrasound revealed cholelithiasis Hepatitis panel-negative Tube feeding with Neutra hep goal 45 cc an hour Lansoprazole for GI prophylaxis Docusate/senna 1 tablet twice daily for bowel regimen will need G tube at some point, hold off for now. likely later this week. : Metabolic alkalosis Adler catheter has been placed for accurate I's and O's in a critically ill patient keep adler today. continue forced diuresis. diamox x 1 for alkalosis Endo: Sliding scale insulin with NovoLog with Accu-Cheks every 6 hours to maintain euglycemia/low regimen Hemoglobin A1c documented at 6.1 Renal: Acute kidney injury -resolved Rhabdomyolysis resolved. Acute intravascular Volume overload -persistent. lasix 40mg iv q12h Monitor urine output Accurate I's and O's Renal ultrasound revealed no hydronephrosis bilaterally 07/21 Urine eosinophils negative. Avoid nephrotoxic drugs Heme: Normocytic anemia Monitor CBC daily. Follow trend hold SQH ID: Received piperacillin/tazobactam and clindamycin ED for possible aspiration Blood cultures 2, UA, sputum 07/21 all pending/no growth to date Strep pneumo, Legionella urine antigens-negative off antibiotics. monitor clinically. ID involved and following. FEN: Hypophosphatemia -resolved Electrolyte protocol MSK: History of multiple lumbar/cervical spine surgeries PT evaluate and treat Access 07/25: left SC TLC 07/26: right radial art line adler 07/25 EVD Prophylaxis -GI -lansoprazole -DVT -SCD/ Heparin SQ Overall impression: This gentleman remains critically ill with a pronounced neurologic injury. Osmolality is acceptably concentrated and we will hold hypertonic saline for now. Cerebral perfusion pressure is suitably high. Critical care time 38 minutes aside from procedures. Paulo Boswell MD July 30, 2017 07:52
[2017-07-30] MEDS: FAMOTIDINE 20 MG TAB PO SCH ×2 (08:32→20:26)
[2017-07-30] MEDS: FUROSEMIDE 40 MG/4 ML VIAL IV PUSH SCH ×2 (08:32→17:06)
[2017-07-30] MEDS: amLODIPine BESYLATE 5 MG TAB PO SCH ×2 (08:33→20:25)
[2017-07-30] MEDS: DOCUSATE SODIUM 50 MG/SENNA 8.6 MG TAB PO SCH ×2 (08:33→20:26)
[2017-07-30] MEDS: SODIUM CHLORIDE 0.9% FLUSH 10 ML FLUSH IV FLUSH SCH ×2 (08:33→20:25)
[2017-07-30] MEDS: POLYETHYLENE GLYCOL 17 GM PKG PO SCH ×2 (08:34→20:25)
[2017-07-30] MEDS: ARTIFICIAL TEARS OPTH SOLN 15 ML BTL EACH EYE SCH ×3 (08:34→17:24)
[2017-07-30] MEDS: LACTULOSE SYRUP 20 GM/30 ML CUP PO SCH (08:34)
[2017-07-30] MEDS: LACTOBACILLUS ACIDOPHILUS TAB PO SCH ×3 (08:34→17:06)
[2017-07-30] MEDS: CHLORHEXIDINE 0.12% (ORAL KIT) 15 ML CUP MT SCH ×2 (08:35→20:00)
[2017-07-30] MEDS: RESP: BUDESONIDE 0.5 MG/2 ML NEB NEB SCH ×2 (08:56→19:52)
[2017-07-30] MEDS: RESP: ALBUTEROL 2.5 MG/3 ML NEB (PRN) INH (08:56)
[2017-07-30] MEDS: LISINOPRIL 10 MG TAB PO SCH (09:00)
[2017-07-30] MEDS ORDERED: hydrALAZINE HCL 50 MG TAB PO PRN (09:15)
--- NOTE | 2017-07-30 09:52 | HHI.NSPN ---
(Shakir Carroll) History Chief Complaint: multifocal infarct. (Shakir Carroll) Interval History 66-year-old obese gentleman who was admitted to [facility] intensive medical unit after presenting to the emergency room 5 days ago found unresponsive at home by . He was intubated and has been on ventilator support since his admission. Workup initially with CT and MRI scan of the brain revealed multifocal areas of infarct involving the bilateral supratentorial hemispheres as well as cerebellar hemispheres consistent with either embolic strokes or anoxia or hypoxia. His toxicology screen was positive for multiple drugs and polysubstance abuse including cocaine, cannabinoids, barbiturates, and opioids. He had a change in his neurologic status with posturing noted today and MRI scan obtained revealed progression of the bilateral cerebellar hemispheres strokes with obstruction of the fourth ventricle and associated hydrocephalus development. Neurosurgery was consulted for the hydrocephalus by the civil service worker. 07/26/17: Pt sedated on Diprivan and Fentanyl drips. Not opening eyes. Pupils 3mm bilaterally NR bilaterally. Intubated. Ventriculostomy drain in place lowered to [address] Barrow with orders to increase to 5cmH20 in one hour. 07/30/17: Patient sedated with fentanyl and Diprivan drips. Not opening eyes. Trach in place. He is on CPAP. Ventriculostomy drain in place at 5 cmH20 draining clear CSF. (Shakir Carroll) System Review Comments Not able to obtain given level of alertness. (Shakir Carroll) Exam Results Vital Signs Date Time Temp Pulse Resp B/P (MAP) Pulse Ox O2 Delivery O2 Flow Rate FiO2 07/30/17 07:59 40 07/30/17 07:45 97 07/30/17 06:00 48 07/30/17 04:00 98.7 20 161/76 (104) Intake and Output 07/30/17 07/30/17 07/31/17 08:00 16:00 00:00 Intake Total 942 ml Output Total 1880 ml Balance -938 ml (Shakir Carroll) Physical Examination General: Pt sedated with trach in place. Eyes: Pupils 3mm bilaterally. Resp: CTA bilaterally. Trach in place. CPAP. Heart: NSR no murmurs Abd: Soft positive bs. NG TF at 65ml/hr. Skin: No cyanosis or erythema. SCDs in place. Muscle: Not following for muscle testing. No response to deep pain. Neuro: Pt sedated on Fentanyl and Diprivan. Not following commands. Pupils 3mm bilaterally reactive bilaterally. Ventriculostomy drain in place at 5cmH20 ICP 7, draining clear CSF. (Shakir Carroll) Physical Examination Sedated on Diprivan and fentanyl drips. Does not open eyes Pupils 4 mm and react down to 2 bilaterally Positive cough and gag reflex Withdraws to pain right more than left Not following commands (Hossein Barrow MD) Lab, Micro, Other Results Last Impressions Chest X-Ray 07/29/17599 Signed Impressions: Service Date/Time: Saturday, July 29, 2017 04:18 - CONCLUSION: No significant change. Buck Henry MD Head CT 07/27/17599 Signed Impressions: Service Date/Time: Thursday, July 27, 2017 13:39 - CONCLUSION: 1. Decrease in ventricular size since July 25. Extensive low attenuation and swelling in both occipital lobes and also in the periventricular region, basal ganglia and focally in the right occipital lobe. Differential diagnosis includes edema or evolving infarcts. There is mass effect on the brainstem and posterior fossa with effacement of the fourth ventricle. Ananda Messina MD Abdomen X-Ray 07/27/17 Signed Impressions: Service Date/Time: Thursday, July 27, 2017 20:37 - CONCLUSION: NG tube coiled in the lower thoracic esophagus. Oumar Bray Jr., MD Head/Brain Mag Res Venography 07/25/17 0000 Signed Impressions: Service Date/Time: Tuesday, July 25, 2017 19:54 - CONCLUSION: Patent dural sinuses. Lonnie Munguia MD Brain MRI 07/25/17 0000 Signed Impressions: Service Date/Time: Tuesday, July 25, 2017 10:37 - CONCLUSION: Worsening brain appearance with developing hydrocephalus which is presumably related to increasing edema in the posterior fossa. See above discussion. Lonnie Lock MD Neck Magnetic Resonance Angiography 07/21/17 0000 Signed Impressions: Service Date/Time: Friday, July 21, 2017 08:40 - CONCLUSION: No acute neck arteriovascular abnormality is identified. There is no significant stenosis within either internal carotid artery. Lonnie Ross MD Head Magnetic Resonance Angiography 07/21/17 0000 Signed Impressions: Service Date/Time: Friday, July 21, 2017 08:40 - CONCLUSION: No acute intracranial vascular abnormality is identified. Lonnie Ross MD Abdomen Ultrasound 07/21/17 0000 Signed Impressions: Service Date/Time: Friday, July 21, 2017 15:47 - CONCLUSION: Cholelithiasis. No gallbladder wall thickening or pericholecystic fluid. Victor Manuel Barros MD Laboratory Tests Test 07/29/17 10:31 07/30/17 04:10 Blood Urea Nitrogen 28 MG/DL 29 MG/DL Creatinine 0.89 MG/DL 0.84 MG/DL Random Glucose 154 MG/DL 149 MG/DL Calcium Level 7.9 MG/DL 7.5 MG/DL Sodium Level 154 MEQ/L 154 MEQ/L Potassium Level 3.9 MEQ/L 3.6 MEQ/L Chloride Level 120 MEQ/L 117 MEQ/L Carbon Dioxide Level 26.7 MEQ/L 30.1 MEQ/L Anion Gap 7 MEQ/L 7 MEQ/L Estimat Glomerular Filtration Rate 86 ML/MIN 92 ML/MIN White Blood Count 9.4 TH/MM3 Red Blood Count 2.95 MIL/MM3 Hemoglobin 9.6 GM/DL Hematocrit 27.9 % Mean Corpuscular Volume 94.8 FL Mean Corpuscular Hemoglobin 32.7 PG Mean Corpuscular Hemoglobin Concent 34.5 % Red Cell Distribution Width 14.1 % Platelet Count 410 TH/MM3 Mean Platelet Volume 7.4 FL Neutrophils (%) (Auto) 77.6 % Lymphocytes (%) (Auto) 12.0 % Monocytes (%) (Auto) 10.4 % Eosinophils (%) (Auto) 0.0 % Basophils (%) (Auto) 0.0 % Neutrophils # (Auto) 7.3 TH/MM3 Lymphocytes # (Auto) 1.1 TH/MM3 Monocytes # (Auto) 1.0 TH/MM3 Eosinophils # (Auto) 0.0 TH/MM3 Basophils # (Auto) 0.0 TH/MM3 CBC Comment DIFF FINAL Differential Comment Phosphorus Level 3.8 MG/DL Magnesium Level 2.7 MG/DL Vancomycin Level Trough 6.3 MCG/ML (Shakir Carroll) Medical Decision Making Impression and Plan A: 66-year-old gentleman with multifocal infarcts involving both hemispheres supratentorially as well as bilateral cerebellar hemispheres with worsening edema and obstructive hydrocephalus. His neurologic examination is very poor. Discussed with over the phone and recommended an emergent ventriculostomy placement to treat the obstructive hydrocephalus. If there is noted improvement subsequently and the option of possible suboccipital craniectomy for decompression could be considered if the family chooses to continue with the aggressive management although this would be a heroic procedure. The at this point consents to ventriculostomy placement and this was witnessed by the nursing staff. P: Continue with Ventriculostomy drain and ICP measurement Continue with critical care Continue with sedation. Discussed with pts at bedside. (Shakir Carroll) Attending Statement The exam, history, and the medical decision-making described in the above note were completed with the assistance of the mid-level provider. I reviewed and agree with the findings presented. I attest that I had a [id number] encounter with the patient on the same day, and personally performed and documented my assessment and findings in the medical record. ICPs are normal and will challenge ventriculostomy to 10 cm level. Taper off steroids. Wean sedation as tolerated. Discussed at length with the and nursing staff at bedside. (Hossein Barrow MD) Shakir Carroll July 30, 2017 09:51 Hossein Barrow MD July 30, 2017 18:55
[2017-07-30] MEDS ORDERED: hydrALAZINE HCL 50 MG TAB PO SCH (10:00)
[2017-07-30] MEDS: levETIRAcetam INJ 750 MG in SODIUM CHLORIDE 0.9% INJ 100 ML IV SCH ×2 (10:03→20:26)
[2017-07-30] MEDS: fentaNYL DRIP 250 ML IV PRN (10:03)
--- NOTE | 2017-07-30 10:14 | HHI.PR ---
Subjective Remarks postop Objective Vital Signs Date Time Temp Pulse Resp B/P (MAP) Pulse Ox O2 Delivery O2 Flow Rate FiO2 07/30/17 07:59 40 07/30/17 07:55 40 07/30/17 07:45 97 40 07/30/17 06:00 48 07/30/17 04:03 99 40 07/30/17 04:00 98.7 50 20 161/76 (104) 97 07/30/17 04:00 40 07/30/17 04:00 50 07/30/17 02:00 48 07/30/17 00:08 99 40 07/30/17 00:00 98.8 48 20 157/72 (100) 99 07/30/17 00:00 48 07/30/17 00:00 40 07/29/17 22:00 64 07/29/17 20:51 100 40 07/29/17 20:00 40 07/29/17 20:00 98.3 48 20 144/66 (92) 97 07/29/17 20:00 48 07/29/17 18:00 53 07/29/17 17:36 93 40 07/29/17 16:00 62 07/29/17 16:00 98.0 62 12 145/68 (93) 93 07/29/17 16:00 40 07/29/17 14:00 52 07/29/17 12:00 98.1 62 11 145/65 (91) 94 07/29/17 12:00 40 07/29/17 12:00 62 07/29/17 11:42 94 40 I/O 07/29/17 07/29/17 07/29/17 07/30/17 07/30/17 07/30/17 07:00 15:00 23:00 07:00 15:00 23:00 Intake Total 654 ml 1565 ml 942 ml Output Total 880 ml 2485 ml 1880 ml Balance -226 ml -920 ml -938 ml IV Total 664 ml 200 ml Tube Feeding 654 ml 781 ml 742 ml Other 120 ml Output Urine Total 800 ml 2400 ml 1800 ml Drainage Total 80 ml 85 ml 80 ml # Bowel Movements 0 3 2 Result Diagram: 07/30/17 0410 07/30/17 041 Objective Remarks on vent on sedatives pupil= unresponsive fully seated Assessment and Plan Assessment and Plan imp a lot of edema increased from 07/21 i started steroids high dose in case encephalitis echo andlabs and eeg neg csf some histiocytes ow underwhelming on acyclovir i sid id the casethought noninfectious hsv pend critically ill ct by nicole fegruson pend 07/30/17 not much new would like to get mri at some point to gauge where we are all csf neg cx neg bands neg labs neg i sid nurse and Jonathan,Judd Bach MD July 30, 2017 10:14
[2017-07-30] MEDS ORDERED: Vancomycin Consult Pharmacy 1 EA OTHER SCH (13:00)
--- NOTE | 2017-07-30 13:19 | HHI.IDPN ---
Subjective Subjective Remarks low grade fever resolved blood clx positive for Staph epi in multiple bottles no fever since 07/27, but is on sterroids Antibiotics Allergies: Coded Allergies: No Known Allergies (Verified Allergy, Unknown, 07/20/17) Objective . Vital Signs Date Time Temp Pulse Resp B/P (MAP) Pulse Ox O2 Delivery O2 Flow Rate FiO2 07/30/17 12:01 97 40 07/30/17 10:18 95 40 07/30/17 10:00 52 07/30/17 08:00 67 07/30/17 08:00 99.3 67 20 169/75 (106) 97 07/30/17 08:00 40 07/30/17 07:59 40 07/30/17 07:55 40 07/30/17 07:45 97 40 07/30/17 06:00 48 07/30/17 04:03 99 40 07/30/17 04:00 98.7 50 20 161/76 (104) 97 07/30/17 04:00 40 07/30/17 04:00 50 07/30/17 02:00 48 07/30/17 00:08 99 40 07/30/17 00:00 98.8 48 20 157/72 (100) 99 07/30/17 00:00 48 07/30/17 00:00 40 07/29/17 22:00 64 07/29/17 20:51 100 40 07/29/17 20:00 40 07/29/17 20:00 98.3 48 20 144/66 (92) 97 07/29/17 20:00 48 07/29/17 18:00 53 07/29/17 17:36 93 40 07/29/17 16:00 62 07/29/17 16:00 98.0 62 12 145/68 (93) 93 07/29/17 16:00 40 07/29/17 14:00 52 . Laboratory Tests Test 07/30/17 04:10 White Blood Count 9.4 TH/MM3 Red Blood Count 2.95 MIL/MM3 Hemoglobin 9.6 GM/DL Hematocrit 27.9 % Mean Corpuscular Volume 94.8 FL Mean Corpuscular Hemoglobin 32.7 PG Mean Corpuscular Hemoglobin Concent 34.5 % Red Cell Distribution Width 14.1 % Platelet Count 410 TH/MM3 Mean Platelet Volume 7.4 FL Neutrophils (%) (Auto) 77.6 % Lymphocytes (%) (Auto) 12.0 % Monocytes (%) (Auto) 10.4 % Eosinophils (%) (Auto) 0.0 % Basophils (%) (Auto) 0.0 % Neutrophils # (Auto) 7.3 TH/MM3 Lymphocytes # (Auto) 1.1 TH/MM3 Monocytes # (Auto) 1.0 TH/MM3 Eosinophils # (Auto) 0.0 TH/MM3 Basophils # (Auto) 0.0 TH/MM3 CBC Comment DIFF FINAL Differential Comment Laboratory Tests Test 07/28/17 19:33 07/29/17 03:55 07/29/17 10:31 07/30/17 04:10 Sodium Level 154 MEQ/L 155 MEQ/L 154 MEQ/L 154 MEQ/L Serum Osmolality 331 MOSM/KG Blood Urea Nitrogen 26 MG/DL 28 MG/DL 29 MG/DL Creatinine 0.76 MG/DL 0.89 MG/DL 0.84 MG/DL Random Glucose 167 MG/DL 154 MG/DL 149 MG/DL Total Protein 5.0 GM/DL Albumin 2.0 GM/DL Calcium Level 7.7 MG/DL 7.9 MG/DL 7.5 MG/DL Alkaline Phosphatase 71 U/L Aspartate Amino Transf (AST/SGOT) 58 U/L Alanine Aminotransferase (ALT/SGPT) 127 U/L Total Bilirubin 0.1 MG/DL Potassium Level 3.7 MEQ/L 3.9 MEQ/L 3.6 MEQ/L Chloride Level 121 MEQ/L 120 MEQ/L 117 MEQ/L Carbon Dioxide Level 28.7 MEQ/L 26.7 MEQ/L 30.1 MEQ/L Anion Gap 5 MEQ/L 7 MEQ/L 7 MEQ/L Estimat Glomerular Filtration Rate 103 ML/MIN 86 ML/MIN 92 ML/MIN Phosphorus Level 3.8 MG/DL Magnesium Level 2.7 MG/DL Microbiology Date/Time Source Procedure Growth Status 07/28/17 07:35 Blood Peripheral Aerobic Blood Culture - Preliminary Gram Positive Cocci Resulted 07/28/17 07:35 Anaerobic Blood Culture - Preliminary Staph Sp Coagulase Negative Resulted 07/27/17 15:16 Blood Peripheral Aerobic Blood Culture - Preliminary Staphylococcus Epidermidis Resulted 07/27/17 15:16 Blood Peripheral Anaerobic Blood Culture - Preliminary NO GROWTH IN 3 DAYS Resulted 07/27/17 16:30 Sputum Endotracheal Gram Stain - Final Complete 07/27/17 16:30 Sputum Endotracheal Sputum Culture - Final LIGHT GROWTH NORMAL RESPIRATORY OLGA LIDIA Complete Imaging Last Impressions Chest X-Ray 07/29/17 0600 Signed Impressions: Service Date/Time: Saturday, July 29, 2017 04:18 - CONCLUSION: No significant change. Buck Henry MD Head CT 07/27/17 0600 Signed Impressions: Service Date/Time: Thursday, July 27, 2017 13:39 - CONCLUSION: 1. Decrease in ventricular size since July 25. Extensive low attenuation and swelling in both occipital lobes and also in the periventricular region, basal ganglia and focally in the right occipital lobe. Differential diagnosis includes edema or evolving infarcts. There is mass effect on the brainstem and posterior fossa with effacement of the fourth ventricle. Ananda Messina MD Abdomen X-Ray 07/27/17 0000 Signed Impressions: Service Date/Time: Thursday, July 27, 2017 20:37 - CONCLUSION: NG tube coiled in the lower thoracic esophagus. Oumar Bray Jr., MD Head/Brain Mag Res Venography 07/25/17 0000 Signed Impressions: Service Date/Time: Tuesday, July 25, 2017 19:54 - CONCLUSION: Patent dural sinuses. Lonnie Munguia MD Brain MRI 07/25/17 0000 Signed Impressions: Service Date/Time: Tuesday, July 25, 2017 10:37 - CONCLUSION: Worsening brain appearance with developing hydrocephalus which is presumably related to increasing edema in the posterior fossa. See above discussion. Lonnie Lock MD Neck Magnetic Resonance Angiography 07/21/17 Signed Impressions: Service Date/Time: Friday, July 21, 2017 08:40 - CONCLUSION: No acute neck arteriovascular abnormality is identified. There is no significant stenosis within either internal carotid artery. Lonnie Ross MD Head Magnetic Resonance Angiography 07/21/17 Signed Impressions: Service Date/Time: Friday, July 21, 2017 08:40 - CONCLUSION: No acute intracranial vascular abnormality is identified. Lonnie Ross MD Abdomen Ultrasound 07/21/17 Signed Impressions: Service Date/Time: Friday, July 21, 2017 15:47 - CONCLUSION: Cholelithiasis. No gallbladder wall thickening or pericholecystic fluid. Victor Manuel Barros MD Physical Exam CONSTITUTIONAL/GENERAL: This is an obese ederly patient, in no apparent distress. On vent TUBES/LINES/DRAINS: SKIN: No jaundice, rashes, or lesions. Skin temperature appropriate. Not diaphoretic. HEAD: Ventric in place R parietal area with clear CSF EYES: Pupils equal and round and reactive. Extraocular motions intact. No scleral icterus. No injection or drainage. Fundi not examined. ENT: Hearing not tested Nose without bleeding or purulent drainage. Throat without visible erythema, exudates, masses, or lesions. Orally intubated NECK: Trachea midline. Supple, nontender. No palpable thyroid enlargement or nodularity. CARDIOVASCULAR: Regular rate and rhythm without murmurs, gallops, or rubs. No JVD. Peripheral pulses symmetric. RESPIRATORY/CHEST: Symmetric, unlabored respirations. Clear to auscultation. Breath sounds equal bilaterally. No wheezes, rales, or rhonchi. GASTROINTESTINAL: Abdomen soft, non-tender, nondistended. No hepato-splenomegaly , or palpable masses. GENITOURINARY: Without palpable bladder distension. Garner catheter in place with clear yellow urine. Prominent scrotum edema MUSCULOSKELETAL: Extremities without clubbing, cyanosis, remains quite edematous. No joint tenderness or effusion noted. No calf tenderness. No mottling or clubbing. NEUROLOGICAL: Unresponsive PSYCHIATRIC: Unable to assess Assessment & Plan Remarks ASbnormal CSF - no r/o meningoencephalits - probably comp=binationof embolic strokes and anoxia t - Acute VDRF ARF 2/2 rhabdo: resolved New fever - resolved Likely PNA: sputum purulent - clx with nl resp olga lidia HIgh grade Srtaph epi bacteremia monitor blood clx, sputum, UA/C+S start vanco RFTX for PNA AKILAH rechk stool for C.diff probiotics fu CXR dw Yogi Murillo (cards) and Reva Leahy MD July 30, 2017 13:19
--- NOTE | 2017-07-30 14:22 | HHI.HCPN ---
Reason for visit a. To assist with evaluation and management of symptoms including: pain; encephalopathy; dyspnea b. To assist medical decision maker(s) with: better understanding of current medical conditions; weighing benefits/burdens of medical treatment options; making medical treatment decisions. . Subjective/Interval History Patient seen and examined in ICU. Discussed with Dr. Boswell. On CPAP to trach. Remains on sedation Propofol (40)and Fentanyl (100). Unable to evaluate for symptoms. Nursing pain level scores 0 - 2. Neurosurgery reports no improvement in neuro status. Neurology indicates plan for MRI at some point. Overall prognosis appears poor for meaningful recovery. Tmax 99.3. HR 50-60s. BP 165/75. WBC 9.4, hemoglobin 9.6, hematocrit 27.9. platelets 410. Sodium 154, creatinine 0.84. Pathology from brain biopsy reveals cerebellar tissue with early ischemic changes. . Family/friend interactions Lengthy conversation with at bedside. She verbalizes that she does not believe her will survive this hospitalization. Gently attempted to explore her thoughts, she tells me she considers this a "happy time" spending with her . She knows it will not last and wants to enjoy the time they have left together. She tells me the medical team has been "forcing the DNR down her throat." She is not yet ready to explore conversation about code status or goals.Medical update provided. She does ask questions about when will we have to stop. I advised that sometimes if his condition changes it may be time to reconsider goals. We agreed to speak again on 07/31/17. She asks me for a therapist to help her, I have advised Roxy Bray LCSW can come to meet her for support, she is very open stating it helps to talk to a stranger sometimes.I advised I will have her come by and she can talk if she is ready, she is appreciative. . Advance Directives Living Will: Copy in medical record Health Care Surrogate: Copy in medical record Durable Power of Black Top Spreader Machine Operator: Completed, but not made available Advance Directive Specifics Date completed: Living will and healthcare surrogate designation were completed on 09/29/2016. . Health Care Surrogate(s): The healthcare surrogate is the patient's spouse--Coty Weaver . Documented care wishes: The patient's living will is the standard [place] living will. He has initialed only one condition to activate his wishes -- if he has "an end-stage condition." He would not want life prolonging procedures should be diagnosed with such condition. . Significant change in goals: FULL CODE. Goals remain aggressive. , Objective Vital Signs Date Time Temp Pulse Resp B/P (MAP) Pulse Ox O2 Delivery O2 Flow Rate FiO2 07/30/17 12:01 97 40 07/30/17 10:18 95 40 07/30/17 10:00 52 07/30/17 08:00 67 07/30/17 08:00 99.3 67 20 169/75 (106) 97 07/30/17 08:00 40 07/30/17 07:59 40 07/30/17 07:55 40 07/30/17 07:45 97 40 07/30/17 06:00 48 07/30/17 04:03 99 40 07/30/17 04:00 98.7 50 20 161/76 (104) 97 07/30/17 04:00 40 07/30/17 04:00 50 07/30/17 02:00 48 07/30/17 00:08 99 40 07/30/17 00:00 98.8 48 20 157/72 (100) 99 07/30/17 00:00 48 07/30/17 00:00 40 07/29/17 22:00 64 07/29/17 20:51 100 40 07/29/17 20:00 40 07/29/17 20:00 98.3 48 20 144/66 (92) 97 07/29/17 20:00 48 07/29/17 18:00 53 07/29/17 17:36 93 40 07/29/17 16:00 62 07/29/17 16:00 98.0 62 12 145/68 (93) 93 07/29/17 16:00 40 07/29/17 14:00 52 Intake & Output 07/30/17 07/30/17 06:59 18:59 Intake Total 1049 ml Output Total 1880 ml Balance -831 ml IV Total 307 ml Tube Feeding 742 ml Output Urine Total 1800 ml Drainage Total 80 ml # Bowel Movements 2 Physical Exam CONSTITUTIONAL/GENERAL: This is an adequately nourished patient, sedated, mechanically ventilated, in a surgical intensive care unit bed. Unresponsive. TUBES/LINES/DRAINS: Ventriculostomy, tracheostomy, NG tube, Left subclavian central line, Garner catheter, SCDs. HEAD: Ventriculostomy on right. SKIN: Multiple tattoos. No jaundice, rashes, or lesions. No wounds seen anteriorly. Skin temperature appropriate. Not diaphoretic. EYES: Pupils equal and round. Cannot evaluate extraocular movements. No scleral icterus. No injection or drainage. Fundi not examined. ENT: NG tube, tracheostomy. CARDIOVASCULAR: Regular rate and rhythm without murmurs. RESPIRATORY/CHEST: Symmetric, unlabored respirations on CPAP. Decreased breath sounds bilaterally. GASTROINTESTINAL: Abdomen soft, non-tender, slightly distended. Bowel sounds present. GENITOURINARY: Without palpable bladder distension. Scrotal edema present. Garner catheter in place. MUSCULOSKELETAL: Extremities with edema. NEUROLOGICAL: Sedated. Unresponsive. PSYCHIATRIC: Unable to evaluate due to level of responsiveness. . Diagnostic Tests Laboratory Laboratory Tests Test 07/27/17 16:00 07/27/17 16:56 07/27/17 17:20 07/27/17 18:48 Serum Osmolality 320 MOSM/KG (275-295) Sodium Level 153 MEQ/L (136-145) Urine Color YELLOW (YELLW/STRAW) Urine Turbidity CLEAR (CLEAR) Urine pH 6.0 (5.0-8.5) Urine Specific [place] 1.029 (1.002-1.035) Urine Protein 30 mg/dL (NEG-TRACE) Urine Glucose (UA) NEG mg/dL (NEG) Urine Ketones NEG mg/dL (NEG) Urine Occult Blood MOD (NEG) Urine Nitrite NEG (NEG) Urine Bilirubin NEG (NEG) Urine Urobilinogen 2.0 MG/DL (LESS THAN Urine Leukocyte Esterase NEG (NEG) Urine RBC 16 /hpf (0-3) Urine WBC 1 /hpf (0-5) Urine Squamous Epithelial Cells <1 /hpf (0-5) Urine Mucus FEW /lpf (OCC) Microscopic Urinalysis Comment CATH-CULT NOT IND Blood Gas Puncture Site LT RADIAL Blood Gas Patient Temperature 98.6 Blood Gas HCO3 28 mmol/L (22-26) Blood Gas Base Excess 3.6 mmol/L (-2-2) Blood Gas Oxygen Saturation 90 % (90-100) Arterial Blood pH 7.38 (7.380-7.420) Arterial Blood Partial Pressure CO2 50 mmHg (38-42) Arterial Blood Partial Pressure O2 70 mmHg (61-120) Arterial Blood Oxygen Content 13.5 Vol % (12.0-20.0) Arterial Blood Carboxyhemoglobin 0.8 % (0-4) Arterial Blood Methemoglobin 1.5 % (0-2) Blood Gas Hemoglobin 10.6 G/DL (12.0-16.0) Oxygen Delivery Device VENTILATOR Blood Gas Ventilator Setting PRVC/AC Blood Gas Inspired Oxygen 40 % Test 07/28/17 00:28 07/28/17 04:10 07/28/17 12:55 07/28/17 19:33 Sodium Level 155 MEQ/L (136-145) 154 MEQ/L (136-145) 155 MEQ/L (136-145) 154 MEQ/L (136-145) White Blood Count 8.9 TH/MM3 (4.0-11.0) Red Blood Count 3.04 MIL/MM3 (4.50-5.90) Hemoglobin 9.7 GM/DL (13.0-17.0) Hematocrit 28.6 % (39.0-51.0) Mean Corpuscular Volume 94.2 FL (80.0-100.0) Mean Corpuscular Hemoglobin 31.9 PG (27.0-34.0) Mean Corpuscular Hemoglobin Concent 33.9 % (32.0-36.0) Red Cell Distribution Width 13.8 % (11.6-17.2) Platelet Count 367 TH/MM3 (150-450) Mean Platelet Volume 7.4 FL (7.0-11.0) Neutrophils (%) (Auto) 69.9 % (16.0-70.0) Lymphocytes (%) (Auto) 16.3 % (9.0-44.0) Monocytes (%) (Auto) 13.6 % (0.0-8.0) Eosinophils (%) (Auto) 0.0 % (0.0-4.0) Basophils (%) (Auto) 0.2 % (0.0-2.0) Neutrophils # (Auto) 6.2 TH/MM3 (1.8-7.7) Lymphocytes # (Auto) 1.4 TH/MM3 (1.0-4.8) Monocytes # (Auto) 1.2 TH/MM3 (0-0.9) Eosinophils # (Auto) 0.0 TH/MM3 (0-0.4) Basophils # (Auto) 0.0 TH/MM3 (0-0.2) CBC Comment DIFF FINAL Differential Comment Blood Urea Nitrogen 23 MG/DL (7-18) Creatinine 0.83 MG/DL (0.60-1.30) Random Glucose 122 MG/DL (74-106) Total Protein 4.9 GM/DL (6.4-8.2) Albumin 2.1 GM/DL (3.4-5.0) Calcium Level 7.5 MG/DL (8.5-10.1) Phosphorus Level 2.8 MG/DL (2.5-4.9) Magnesium Level 2.6 MG/DL (1.5-2.5) Alkaline Phosphatase 63 U/L (45-117) Aspartate Amino Transf (AST/SGOT) 56 U/L (15-37) Alanine Aminotransferase (ALT/SGPT) 105 U/L (12-78) Total Bilirubin 0.1 MG/DL (0.2-1.0) Potassium Level 3.3 MEQ/L (3.5-5.1) Chloride Level 121 MEQ/L (98-107) Carbon Dioxide Level 29.2 MEQ/L (21.0-32.0) Anion Gap 4 MEQ/L (5-15) Estimat Glomerular Filtration Rate 93 ML/MIN (>89) Total Creatine Kinase 805 U/L (39-308) Creatine Kinase MB 1.7 NG/ML (0.5-3.6) Creatine Kinase MB % 0.2 % (0.0-4.0) Serum Osmolality 328 MOSM/KG (275-295) 331 MOSM/KG (275-295) Test 07/29/17 03:55 07/29/17 10:31 07/30/17 04:10 Blood Urea Nitrogen 26 MG/DL (7-18) 28 MG/DL (7-18) 29 MG/DL (7-18) Creatinine 0.76 MG/DL (0.60-1.30) 0.89 MG/DL (0.60-1.30) 0.84 MG/DL (0.60-1.30) Random Glucose 167 MG/DL (74-106) 154 MG/DL (74-106) 149 MG/DL (74-106) Total Protein 5.0 GM/DL (6.4-8.2) Albumin 2.0 GM/DL (3.4-5.0) Calcium Level 7.7 MG/DL (8.5-10.1) 7.9 MG/DL (8.5-10.1) 7.5 MG/DL (8.5-10.1) Alkaline Phosphatase 71 U/L (45-117) Aspartate Amino Transf (AST/SGOT) 58 U/L (15-37) Alanine Aminotransferase (ALT/SGPT) 127 U/L (12-78) Total Bilirubin 0.1 MG/DL (0.2-1.0) Sodium Level 155 MEQ/L (136-145) 154 MEQ/L (136-145) 154 MEQ/L (136-145) Potassium Level 3.7 MEQ/L (3.5-5.1) 3.9 MEQ/L (3.5-5.1) 3.6 MEQ/L (3.5-5.1) Chloride Level 121 MEQ/L (98-107) 120 MEQ/L (98-107) 117 MEQ/L (98-107) Carbon Dioxide Level 28.7 MEQ/L (21.0-32.0) 26.7 MEQ/L (21.0-32.0) 30.1 MEQ/L (21.0-32.0) Anion Gap 5 MEQ/L (5-15) 7 MEQ/L (5-15) 7 MEQ/L (5-15) Estimat Glomerular Filtration Rate 103 ML/MIN (>89) 86 ML/MIN (>89) 92 ML/MIN (>89) White Blood Count 9.4 TH/MM3 (4.0-11.0) Red Blood Count 2.95 MIL/MM3 (4.50-5.90) Hemoglobin 9.6 GM/DL (13.0-17.0) Hematocrit 27.9 % (39.0-51.0) Mean Corpuscular Volume 94.8 FL (80.0-100.0) Mean Corpuscular Hemoglobin 32.7 PG (27.0-34.0) Mean Corpuscular Hemoglobin Concent 34.5 % (32.0-36.0) Red Cell Distribution Width 14.1 % (11.6-17.2) Platelet Count 410 TH/MM3 (150-450) Mean Platelet Volume 7.4 FL (7.0-11.0) Neutrophils (%) (Auto) 77.6 % (16.0-70.0) Lymphocytes (%) (Auto) 12.0 % (9.0-44.0) Monocytes (%) (Auto) 10.4 % (0.0-8.0) Eosinophils (%) (Auto) 0.0 % (0.0-4.0) Basophils (%) (Auto) 0.0 % (0.0-2.0) Neutrophils # (Auto) 7.3 TH/MM3 (1.8-7.7) Lymphocytes # (Auto) 1.1 TH/MM3 (1.0-4.8) Monocytes # (Auto) 1.0 TH/MM3 (0-0.9) Eosinophils # (Auto) 0.0 TH/MM3 (0-0.4) Basophils # (Auto) 0.0 TH/MM3 (0-0.2) CBC Comment DIFF FINAL Differential Comment Phosphorus Level 3.8 MG/DL (2.5-4.9) Magnesium Level 2.7 MG/DL (1.5-2.5) Vancomycin Level Trough 6.3 MCG/ML (5.0-10.0) Result Diagram: 07/30/170 07/30/17 0410 Microbiology Microbiology Date/Time Source Procedure Growth Status 07/28/17 07:35 Blood Peripheral Aerobic Blood Culture - Preliminary Gram Positive Cocci Resulted 07/28/17 07:35 Anaerobic Blood Culture - Preliminary Staph Sp Coagulase Negative Resulted 07/27/17 15:16 Blood Peripheral Aerobic Blood Culture - Preliminary Staphylococcus Epidermidis Resulted 07/27/17 15:16 Blood Peripheral Anaerobic Blood Culture - Preliminary NO GROWTH IN 3 DAYS Resulted 07/27/17 16:30 Sputum Endotracheal Gram Stain - Final Complete 07/27/17 16:30 Sputum Endotracheal Sputum Culture - Final LIGHT GROWTH NORMAL RESPIRATORY LUBA Complete Imaging Last Impressions Chest X-Ray 07/29/17 06 Signed Impressions: Service Date/Time: Saturday, July 29, 2017 04:18 - CONCLUSION: No significant change. Buck Henry MD Head CT 07/27/17 06 Signed Impressions: Service Date/Time: Thursday, July 27, 2017 13:39 - CONCLUSION: 1. Decrease in ventricular size since July 25. Extensive low attenuation and swelling in both occipital lobes and also in the periventricular region, basal ganglia and focally in the right occipital lobe. Differential diagnosis includes edema or evolving infarcts. There is mass effect on the brainstem and posterior fossa with effacement of the fourth ventricle. Ananda Messina MD Abdomen X-Ray 07/27/17 0000 Signed Impressions: Service Date/Time: Thursday, July 27, 2017 20:37 - CONCLUSION: NG tube coiled in the lower thoracic esophagus. Oumar Bray Jr., MD Head/Brain Mag Res Venography 07/25/17 0000 Signed Impressions: Service Date/Time: Tuesday, July 25, 2017 19:54 - CONCLUSION: Patent dural sinuses. Lonnie Munguia MD Brain MRI 07/25/17 0000 Signed Impressions: Service Date/Time: Tuesday, July 25, 2017 10:37 - CONCLUSION: Worsening brain appearance with developing hydrocephalus which is presumably related to increasing edema in the posterior fossa. See above discussion. Lonnie Lock MD Neck Magnetic Resonance Angiography 07/21/17 0000 Signed Impressions: Service Date/Time: Friday, July 21, 2017 08:40 - CONCLUSION: No acute neck arteriovascular abnormality is identified. There is no significant stenosis within either internal carotid artery. Lonnie Ross MD Head Magnetic Resonance Angiography 07/21/17 0000 Signed Impressions: Service Date/Time: Friday, July 21, 2017 08:40 - CONCLUSION: No acute intracranial vascular abnormality is identified. Lonnie Ross MD Abdomen Ultrasound 07/21/17 0000 Signed Impressions: Service Date/Time: Friday, July 21, 2017 15:47 - CONCLUSION: Cholelithiasis. No gallbladder wall thickening or pericholecystic fluid. Victor Manuel Barros MD . Procedures * Intubation/mechanical ventilation * Ventriculostomy drain placement * Central line placement * Decompressive suboccipiatl craniotomy 07/26/17 . . Assessment and Plan Disease Oriented Problem List: (1) Stroke Comment: Evolving with obstructive hydrocephalus and cerebral edema requiring emergent ventriculostomy placement on 07/25/17 . (2) Acute respiratory failure (3) Seizure Comment: EEG negative on 07/25/17 but teacher industrial arts felt patient had seizure activity. Would not be surprising given level of cerebral edema. . (4) Failed back syndrome (5) COPD (chronic obstructive pulmonary disease) (6) Hyperkalemia (7) Acute kidney injury (8) Rhabdomyolysis (9) Tobacco abuse disorder (10) Chronic, continuous use of opioids (11) Depression (12) Hypertension (13) Hyperlipidemia Symptom Scale: (1) Pain 0-10 Scale: Unable to quantify Comment: Patient has long history of chronic pain from his back for which he has undergone multiple surgeries. Has been on chronic opioids for many years. Additional sources of pain might now also include recent craniotomy; cerebral edema; prisca hole placement; prolonged bedbound status; Garner catheter; vascular access catheters; restraints; orotracheal intubation; orogastric intubation. . (2) Encephalopathy 0-10 Scale: Unable to quantify Comment: Encephalopathy may be multifactorial. It appears he has had multiple strokes, cerebral edema, acute kidney injury, and electrolyte abnormalities all of which which are likely contributing to encephalopathy. . . (3) Dyspnea 0-10 Scale: Unable to quantify Comment: Currently managed with mechanical ventilation. . Pertinent Non-Medical Issues Psychosocial: Patient is well supported locally by his spouse. He has a biological son who lives in [place], [place], but who is here now. Spiritual: Gnosticist and spirituality have not played an important role in his life. Legal: Patient has a living will and designation of healthcare surrogate currently scanned into our electronic medical record. His is his surrogate. Ethical issues impacting care: Patient is currently incapacitated to make his own healthcare decisions. It is unclear if/when he will regain capacity to do so. . Important Contacts * Coty Weaver (spouse and health care surrogate) [phone] and * Blake Castillo (son) [phone] . Prognosis The patient's prognosis is now much worse with the obstructive hydrocephalus and cerebral edema requiring emergent ventriculostomy placement and then decompressive craniotomy. Should he survive the hospitalization, chances of meaningful recovery are much less. . Code Status: Full Code Plan * Decision Making: Patient is currently incapacitated to make his own healthcare decisions, unlikely that he will regain capacity. He has designated his spouse--Coty Waever as healthcare surrogate. * FULL CODE * Goals of medical treatment: Goals currently remain aggressive, including FULL CODE. is verbalizing he may not survive this admission. She is not yet ready to consider transition transition. Will need medical team to continue to discuss prognosis, as she verbalizes not knowing what the "doctors are thinking. Symptoms (see symptom descriptions above): * Pain: Patient has multiple acute sources of pain as noted above, on top of his chronic back pain. He is currently sedated; pain appears adequately controlled. Current regimen appears to be effective. No further recommendations at this time. * Dyspnea: Patient is a long-term smoker and now unable to protect his airway. Dyspnea is currently being managed by mechanical ventilation. Was tolerating CPAP prior to his apparent seizure and subsequent craniotomy. Anticipate need for ongoing full vent support, and tracheostomy much more likely needed if family would wish aggressive goals. No further recommendations at this time. * Agitation: Agitation is probably from a multifactorial delirium. Patient had been managed with dexmedetomidine in MICU. Now sedated with propofol. Await to see if agitation increases or decreases should responsiveness return. * Encephalopathy multifactorial.: We will continue to address the fixable contributors such as metabolic issues and possible infection. Psychoactive drugs present in urine tox screen have probably all cleared by now. Main source of encephalopathy now the stroke and associated edema. Palliative care will continue to follow to assist with symptom management and to further clarify goals of medical treatment as the clinical course evolves. . . Attestation To help prompt me to consider important information that might be impacting today's encounter and assessment, information from prior notes written by myself or my colleagues may have been "brought forward" into today's note. My signature on this note, however, is an attestation that I personally performed the exam, history, and/or decision-making noted today, and, unless otherwise indicated, the interactions with patient, family, and staff as well as the review of records all occurred today. I also attest that the listed assessment and stated plan reflect my best clinical judgment today based on the combination of historical information, prior notes, and today's exam/ interactions. When time spent is documented, it refers only to time spent today by the signer, or if indicated, combined time spent today by collaborating physician/nurse practitioner. Lindsay Oro July 30, 2017 14:22
[2017-07-30] MEDS: cefTRIAXone INJ 2,000 MG in SODIUM CHLORIDE 0.9% INJ 100 ML IV SCH (14:28)
[2017-07-30] MEDS: VANCOMYCIN INJ 1,750 MG in SODIUM CHLORID 0.9% 500 ML INJ 500 ML IV SCH (15:06)
[2017-07-30] MEDS ORDERED: NIFEdipine 20 MG CAP PO ONE (16:30)
--- NOTE | 2017-07-30 17:06 | HHI.HCSW ---
Vice President Of Instruction Visit Significant Family/Friend Met with to provide emotional and social support per her request. She is appropriate grieving and tearful throughout conversation. She expressed many feelings regarding family and friend dynamics with Mr. Castillo. Verbalizes she is having a difficult time determining what is right and wrong when it comes to visiting, information sharing, and maintaining her own well-being. Offered emotional support and active listening. Coty does verbalize appreciation of medial team and hospital staff throughout time here. . Follow Up Visit Palliative care will continue to follow throughout hospitalization. Plan for follow-up meeting tomorrow, Monday 07/31. Palliative ENVIRONMENTAL SAFETY SPECIALIST to continue to follow to provide emotional and social support to build rapport and assist with goals of care discussion. Roxy Bray MSW, ENVIRONMENTAL SAFETY SPECIALIST July 30, 2017 17:05
[2017-07-30] MEDS: hydrALAZINE HCL 50 MG TAB PO SCH (17:07)
--- NOTE | 2017-07-30 19:06 | PD.CARD.PN ---
Subjective Subjective Remarks trached, sedated Objective Medications Current Medications Medications (Trade) Dose Ordered Sig/Claudia Route Start Time Stop Time Status Last Admin (NS Flush) 2 ml UNSCH PRN IV FLUSH 07/21/17 00:00 (NS Flush) 2 ml BID IV FLUSH 07/21/17 09:00 07/30/17 08:33 (Tears Naturale Opth Soln) 1 drop TID EACH EYE 07/21/17 09:00 07/30/17 17:24 (Zofran Inj) 4 mg Q6H PRN IV PUSH 07/21/17 00:00 (Albuterol Neb) 2.5 mg Q2HR NEB PRN INH 07/21/17 00:00 07/30/17 08:56 ([facility]) 1 Q361D XX 07/21/17 00:00 07/21/17 00:00 (Chlorhexidine 2% Cloth) Taper DAILY@04 TOP 07/21/17 04:00 07/17/18 03:59 07/25/17 04:00 (Chlorhexidine 2% Cloth) 3 pack UNSCH PRN TOP 07/21/17 00:00 (Dilia-Colace) 1 tab BID PO 07/21/17 09:00 07/30/17 08:33 (Milk Of Magnesia Liq) 30 ml Q12H PRN PO 07/21/17 00:00 (Senokot) 17.2 mg Q12H PRN PO 07/21/17 00:00 (Dulcolax Supp) 10 mg DAILY PRN RECTAL 07/21/17 00:00 (Lactulose Liq) 30 ml DAILY PRN PO 07/21/17 00:00 (Peridex 0.12% Liq) 15 ml BID@08,20 MT 07/21/17 08:00 07/30/17 08:35 (D50w (Vial) Inj) 50 ml UNSCH PRN IV PUSH 07/21/17 00:00 (Glucagon Inj) 1 mg UNSCH PRN OTHER 07/21/17 00:00 (NovoLOG SUPPLEMENTAL SCALE) 1 Q6HR SQ 07/21/17 00:00 07/30/17 17:49 (Pulmicort Respule Neb) 0.5 mg Q12HR NEB NEB 07/21/17 08:00 07/30/17 08:56 (Brethine Inj) 1 mg UNSCH PRN SQ 07/21/17 00:30 (Lactulose Liq) 30 ml DAILY PO 07/22/17 09:00 07/29/17 09:14 (Apresoline Inj) 10 mg Q1H PRN IV PUSH 07/22/17 09:45 07/24/17 19:51 (Nitroglycerin 2% Oint) 2 inch Q6H PRN TOPICAL 07/22/17 09:45 (Miralax) 17 gm BID PO 07/23/17 21:00 07/29/17 21:25 Levetriacetam 750 mg/Sodium Chloride 107.5 ml @ 420 mls/hr Q12H IV 07/25/17 10:00 07/30/17 10:03 (Pepcid) 20 mg Q12HR PO 07/25/17 21:00 07/30/17 08:32 (Brethine Inj) 1 mg UNSCH PRN SQ 07/26/17 09:45 Propofol 100 ml @ 3.102 mls/ hr TITRATE PRN IV 07/26/17 11:00 07/30/17 18:56 Fentanyl Citrate 250 ml @ 5 mls/hr TITRATE PRN IV 07/26/17 11:00 07/30/17 10:03 (Lactinex) 1 tab TID PO 07/28/17 18:00 07/30/17 17:06 (Norvasc) 5 mg BID PO 07/29/17 09:00 07/30/17 08:33 (Lasix Inj) 40 mg BID@,18 IV PUSH 07/29/17 09:00 07/30/17 17:06 (Prinivil) 10 mg DAILY PO 07/29/17 09:00 07/30/17 09:00 (Apresoline) 50 mg Q8H PRN PO 07/30/17 09:15 Pharmacy Profile Note 0 ml @ 0 mls/hr UNSCH OTHER 07/30/17 13:00 Ceftriaxone Sodium 2000 mg/ Sodium Chloride 100 ml @ 200 mls/hr Q24H IV 07/30/17 14:00 07/30/17 14:28 Vancomycin HCl 1750 mg/Sodium Chloride 517.5 ml @ 250 mls/hr Q12H IV 07/30/17 16:00 07/30/17 15:06 ([facility] Ordered Lab Info) SPECIFIC LAB TO BE SHIRA... ONCE ONCE .XX 08/01/17 03:45 08/01/17 03:46 (Apresoline) 100 mg Q8H PO 07/30/17 18:00 07/30/17 17:07 (Decadron Inj) 4 mg Q12HR IV PUSH 07/30/17 21:00 07/31/17 20:59 Vital Signs / I&O Vital Signs Date Time Temp Pulse Resp B/P (MAP) Pulse Ox O2 Delivery O2 Flow Rate FiO2 07/30/17 18:00 82 07/30/17 17:10 97 40 07/30/17 16:00 40 07/30/17 16:00 99.3 66 14 165/75 (105) 97 07/30/17 16:00 60 07/30/17 14:00 56 07/30/17 12:01 97 40 07/30/17 12:00 67 07/30/17 10:18 95 40 07/30/17 10:00 52 07/30/17 08:00 67 07/30/17 08:00 99.3 67 20 169/75 (106) 97 07/30/17 08:00 40 07/30/17 07:59 40 07/30/17 07:55 40 07/30/17 07:45 97 40 07/30/17 06:00 48 07/30/17 04:03 99 40 07/30/17 04:00 98.7 50 20 161/76 (104) 97 07/30/17 04:00 40 07/30/17 04:00 50 07/30/17 02:00 48 07/30/17 00:08 99 40 07/30/17 00:00 98.8 48 20 157/72 (100) 99 07/30/17 00:00 48 07/30/17 00:00 40 07/29/17 22:00 64 07/29/17 20:51 100 40 07/29/17 20:00 40 07/29/17 20:00 98.3 48 20 144/66 (92) 97 07/29/17 20:00 48 I/O 07/29/17 07/29/17 07/29/17 07/30/17 07/30/17 07/30/17 07:00 15:00 23:00 07:00 15:00 23:00 Intake Total 654 ml 1565 ml 942 ml 820 ml Output Total 880 ml 2485 ml 1880 ml 2580 ml Balance -226 ml -920 ml -938 ml -1760 ml IV Total 664 ml 200 ml Tube Feeding 654 ml 781 ml 742 ml 700 ml Other 120 ml 120 ml Output Urine Total 800 ml 2400 ml 1800 ml 2500 ml Drainage Total 80 ml 85 ml 80 ml 80 ml # Bowel Movements 0 3 2 1 Physical Exam GENERAL: SKIN: Warm and dry. HEAD: Normocephalic. EYES: No scleral icterus. No injection or drainage. NECK: Supple, trachea midline. No JVD or lymphadenopathy. CARDIOVASCULAR: Regular rate and rhythm without murmurs, gallops, or rubs. RESPIRATORY: Breath sounds equal bilaterally. No accessory muscle use. GASTROINTESTINAL: Abdomen soft, non-tender, nondistended. MUSCULOSKELETAL: No cyanosis, or edema. BACK: Nontender without obvious deformity. No CVA tenderness. Laboratory Laboratory Tests Test 07/30/17 04:10 White Blood Count 9.4 TH/MM3 Red Blood Count 2.95 MIL/MM3 Hemoglobin 9.6 GM/DL Hematocrit 27.9 % Mean Corpuscular Volume 94.8 FL Mean Corpuscular Hemoglobin 32.7 PG Mean Corpuscular Hemoglobin Concent 34.5 % Red Cell Distribution Width 14.1 % Platelet Count 410 TH/MM3 Mean Platelet Volume 7.4 FL Neutrophils (%) (Auto) 77.6 % Lymphocytes (%) (Auto) 12.0 % Monocytes (%) (Auto) 10.4 % Eosinophils (%) (Auto) 0.0 % Basophils (%) (Auto) 0.0 % Neutrophils # (Auto) 7.3 TH/MM3 Lymphocytes # (Auto) 1.1 TH/MM3 Monocytes # (Auto) 1.0 TH/MM3 Eosinophils # (Auto) 0.0 TH/MM3 Basophils # (Auto) 0.0 TH/MM3 CBC Comment DIFF FINAL Differential Comment Blood Urea Nitrogen 29 MG/DL Creatinine 0.84 MG/DL Random Glucose 149 MG/DL Calcium Level 7.5 MG/DL Phosphorus Level 3.8 MG/DL Magnesium Level 2.7 MG/DL Sodium Level 154 MEQ/L Potassium Level 3.6 MEQ/L Chloride Level 117 MEQ/L Carbon Dioxide Level 30.1 MEQ/L Anion Gap 7 MEQ/L Estimat Glomerular Filtration Rate 92 ML/MIN Vancomycin Level Trough 6.3 MCG/ML Assessment and Plan Problem List: (1) Toxic metabolic encephalopathy ICD Codes: G92 - Toxic encephalopathy (2) Tetrahydrocannabinol (THC) use disorder, mild, abuse ICD Codes: F12.10 - Cannabis abuse, uncomplicated (3) Encephalopathy ICD Codes: G93.40 - Encephalopathy, unspecified (4) Stroke ICD Codes: I63.9 - Cerebral infarction, unspecified (5) Chronic, continuous use of opioids ICD Codes: F11.90 - Opioid use, unspecified, uncomplicated (6) Cocaine use ICD Codes: F14.90 - Cocaine use, unspecified, uncomplicated Assessment and Plan 1.) I am not sure if he is stable enough to undergo head and neck manipulation to undergo swapnil; he is intubated so i cant assess his ability to swallow; will consider swapnil if risk benefit ratio favors it, he is cleared by neurology and neurosurgery for head and neck manipulation and if findings may guide changer 2.) D/w Dr Epperson 07/28/17; agrees that swapnil will not change short term management and put patient at risk of neurologic injury from neck manipulation during swapnil, d/w nurse at bedside as well 3.) Will d/w ID and NS risks/benefits of swapnil; d/w at bedside 07/30/17 Navid Corrales MD July 30, 2017 19:06
[2017-07-30] MEDS: DEXAMETHASONE SOD PHOS 4 MG/ML VIAL IV PUSH SCH (20:25)
[2017-07-31] VITALS (19 sets, daily range): BP systolic 125–154; BP diastolic 60–74; PULSE 52–96; RESP 20–23; TEMP 98.9–100.3; O2SAT 95–100
[2017-07-31] MEDS: hydrALAZINE HCL 50 MG TAB PO SCH ×4 (02:20→17:14)
[2017-07-31] MEDS: PROPOFOL 1000 MG/100 ML INJ 100 ML IV PRN ×5 (02:20→22:06)
[2017-07-31] MEDS: CHLORHEXIDINE GLUCONATE 2 % 1 PACK (2 CLOTHS) TOP SCH (04:00)
[2017-07-31] MEDS: VANCOMYCIN INJ 1,750 MG in SODIUM CHLORID 0.9% 500 ML INJ 500 ML IV SCH ×2 (04:44→16:21)
[2017-07-31] MEDS: INSULIN ASPART SUPPLEMENTAL SCALE SQ SCH ×5 (06:00→23:29)
--- NOTE | 2017-07-31 06:18 | RADRPT ---
EXAM DATE/TIME: 07/31/2017 05:14 [place] COMPARISON: CHEST SINGLE AP, July 29, 2017, 4:18. INDICATIONS : Short of breath. MEDICAL HISTORY : Hypertension. Diabetes mellitus type II. SURGICAL HISTORY : Colon resection. Fusion, cervical ENCOUNTER: Subsequent ACUITY: 1 week PAIN SCORE: Non-responsive. LOCATION: Bilateral chest FINDINGS: A single view of the chest demonstrates tracheostomy in good position. A central line in superior selene a cava. NG enters stomach. Bilateral mostly basilar airspace consolidation, left greater than right. No pneumothorax. CONCLUSION: 1. Basilar airspace disease, left greater than right similar to July 29. Support apparatus unchanged. Ananda eMssina MD on July 31, 2017 at 6:13 Board Certified Radiologist. This report was verified electronically.
[2017-07-31] MEDS: fentaNYL DRIP 250 ML IV PRN (06:53)
[2017-07-31 07:13] LABS: HEMATOCRIT 26.9 % (39.0-51.0); HEMOGLOBIN 8.9 GM/DL (13.0-17.0); MEAN CELL VOLUME 95.2 FL (80.0-100.0); MEAN CORPUSCULAR HEMOGLOBIN 31.7 PG (27.0-34.0); MEAN CORPUSCULAR HGB CONC 33.3 % (32.0-36.0); MEAN PLATELET VOLUME 7.5 FL (7.0-11.0); PLATELET COUNT 387 TH/MM3 (150-450); RED BLOOD COUNT 2.82 MIL/MM3 (4.50-5.90); RED CELL DISTRIBUTION WIDTH 13.7 % (11.6-17.2); WHITE BLOOD COUNT 13.1 TH/MM3 (4.0-11.0)
[2017-07-31] MEDS: RESP: BUDESONIDE 0.5 MG/2 ML NEB NEB SCH ×2 (07:30→19:28)
[2017-07-31] MEDS: CHLORHEXIDINE 0.12% (ORAL KIT) 15 ML CUP MT SCH ×2 (08:00→20:26)
[2017-07-31 08:11] LABS: BICARBONATE 30.8 MEQ/L (21.0-32.0); CALCIUM 7.2 MG/DL (8.5-10.1); CREATININE 0.77 MG/DL (0.60-1.30)
[2017-07-31 08:12] LABS: CALCIUM-PROTEIN CORRECTED 8.5 MG/DL (8.5-10.1); TOTAL PROTEIN 4.7 GM/DL (6.4-8.2)
[2017-07-31] MEDS: LISINOPRIL 10 MG TAB PO SCH (09:22)
[2017-07-31] MEDS: SODIUM CHLORIDE 0.9% FLUSH 10 ML FLUSH IV FLUSH SCH ×2 (09:22→20:26)
[2017-07-31] MEDS: FUROSEMIDE 40 MG/4 ML VIAL IV PUSH SCH ×2 (09:22→17:13)
[2017-07-31] MEDS: amLODIPine BESYLATE 5 MG TAB PO SCH ×2 (09:22→20:25)
[2017-07-31] MEDS: LACTULOSE SYRUP 20 GM/30 ML CUP PO SCH (09:22)
[2017-07-31] MEDS: DEXAMETHASONE SOD PHOS 4 MG/ML VIAL IV PUSH SCH (09:22)
[2017-07-31] MEDS: FAMOTIDINE 20 MG TAB PO SCH ×2 (09:22→20:26)
[2017-07-31] MEDS: DOCUSATE SODIUM 50 MG/SENNA 8.6 MG TAB PO SCH ×2 (09:22→20:25)
[2017-07-31] MEDS: LACTOBACILLUS ACIDOPHILUS TAB PO SCH ×3 (09:22→17:14)
[2017-07-31] MEDS: ARTIFICIAL TEARS OPTH SOLN 15 ML BTL EACH EYE SCH ×3 (09:22→17:13)
[2017-07-31] MEDS: POLYETHYLENE GLYCOL 17 GM PKG PO SCH ×2 (09:22→20:25)
--- NOTE | 2017-07-31 09:35 | HHI.NSPN ---
History Chief Complaint: multifocal infarct. Interval History 66-year-old obese gentleman who was admitted to [facility] intensive medical unit after presenting to the emergency room 5 days ago found unresponsive at home by . He was intubated and has been on ventilator support since his admission. Workup initially with CT and MRI scan of the brain revealed multifocal areas of infarct involving the bilateral supratentorial hemispheres as well as cerebellar hemispheres consistent with either embolic strokes or anoxia or hypoxia. His toxicology screen was positive for multiple drugs and polysubstance abuse including cocaine, cannabinoids, barbiturates, and opioids. He had a change in his neurologic status with posturing noted today and MRI scan obtained revealed progression of the bilateral cerebellar hemispheres strokes with obstruction of the fourth ventricle and associated hydrocephalus development. Neurosurgery was consulted for the hydrocephalus by the crowning hammer operator. 07/26/17: Pt sedated on Diprivan and Fentanyl drips. Not opening eyes. Pupils 3mm bilaterally NR bilaterally. Intubated. Ventriculostomy drain in place lowered to [address] Barrow with orders to increase to 5cmH20 in one hour. 07/30/17: Patient sedated with fentanyl and Diprivan drips. Not opening eyes. Trach in place. He is on CPAP. Ventriculostomy drain in place at 5 cmH20 draining clear CSF. 07/31/17: Pt sedated with Fentanyl and Diprivan. Opening eyes left more than right. Ventriculostomy drain in place at [id number]. ICP 15 draining clear CSF. System Review Comments Not able to obtain given clinical condition. Exam Results Vital Signs Date Time Temp Pulse Resp B/P (MAP) Pulse Ox O2 Delivery O2 Flow Rate FiO2 07/31/17 08:00 52 07/31/17 08:00 100.3 22 139/65 (89) 96 07/31/17 08:00 40 Intake and Output 07/31/17 07/31/17 08/01/17 08:00 16:00 00:00 Intake Total 756 ml Output Total 2532 ml Balance -1776 ml Physical Examination Sedated on Diprivan and fentanyl drips. Does not open eyes Pupils 4 mm and react down to 2 bilaterally Positive cough and gag reflex Withdraws to pain right more than left Not following commands Lab, Micro, Other Results Laboratory Tests Test 07/31/17 06:05 White Blood Count 13.1 TH/MM3 Red Blood Count 2.82 MIL/MM3 Hemoglobin 8.9 GM/DL Hematocrit 26.9 % Mean Corpuscular Volume 95.2 FL Mean Corpuscular Hemoglobin 31.7 PG Mean Corpuscular Hemoglobin Concent 33.3 % Red Cell Distribution Width 13.7 % Platelet Count 387 TH/MM3 Mean Platelet Volume 7.5 FL Blood Urea Nitrogen 32 MG/DL Creatinine 0.77 MG/DL Random Glucose 95 MG/DL Total Protein 4.7 GM/DL Calcium Level 7.2 MG/DL Sodium Level 152 MEQ/L Potassium Level 3.8 MEQ/L Chloride Level 117 MEQ/L Carbon Dioxide Level 30.8 MEQ/L Anion Gap 4 MEQ/L Estimat Glomerular Filtration Rate 101 ML/MIN Protein Corrected Calcium 8.5 MG/DL Last Impressions Chest X-Ray 07/31/17 06 Signed Impressions: Service Date/Time: Monday, July 31, 2017 05:14 - CONCLUSION: 1. Basilar airspace disease, left greater than right similar to July 29. Support apparatus unchanged. Ananda Messina MD Head CT 07/27/17 06 Signed Impressions: Service Date/Time: Thursday, July 27, 2017 13:39 - CONCLUSION: 1. Decrease in ventricular size since July 25. Extensive low attenuation and swelling in both occipital lobes and also in the periventricular region, basal ganglia and focally in the right occipital lobe. Differential diagnosis includes edema or evolving infarcts. There is mass effect on the brainstem and posterior fossa with effacement of the fourth ventricle. Ananda Messina MD Abdomen X-Ray 07/27/17 0000 Signed Impressions: Service Date/Time: Thursday, July 27, 2017 20:37 - CONCLUSION: NG tube coiled in the lower thoracic esophagus. Oumar Bray Jr., MD Head/Brain Mag Res Venography 07/25/17 0000 Signed Impressions: Service Date/Time: Tuesday, July 25, 2017 19:54 - CONCLUSION: Patent dural sinuses. Lonnie Munguia MD Brain MRI 07/25/17 0000 Signed Impressions: Service Date/Time: Tuesday, July 25, 2017 10:37 - CONCLUSION: Worsening brain appearance with developing hydrocephalus which is presumably related to increasing edema in the posterior fossa. See above discussion. Lonnie Lock MD Neck Magnetic Resonance Angiography 07/21/17 0000 Signed Impressions: Service Date/Time: Friday, July 21, 2017 08:40 - CONCLUSION: No acute neck arteriovascular abnormality is identified. There is no significant stenosis within either internal carotid artery. Lonnie Ross MD Head Magnetic Resonance Angiography 07/21/17 0000 Signed Impressions: Service Date/Time: Friday, July 21, 2017 08:40 - CONCLUSION: No acute intracranial vascular abnormality is identified. Lonnie Ross MD Abdomen Ultrasound 07/21/17 0000 Signed Impressions: Service Date/Time: Friday, July 21, 2017 15:47 - CONCLUSION: Cholelithiasis. No gallbladder wall thickening or pericholecystic fluid. Victor Manuel Barros MD 07/31/17 07/31/17 08/01/17 15:00 23:00 07:00 Intake Total 756 ml Output Total 2532 ml Balance -1776 ml Tube Feeding 756 ml Output Urine Total 2500 ml Drainage Total 32 ml Medical Decision Making Impression and Plan A: 66-year-old gentleman with multifocal infarcts involving both hemispheres supratentorially as well as bilateral cerebellar hemispheres with worsening edema and obstructive hydrocephalus. His neurologic examination is very poor. Discussed with over the phone and recommended an emergent ventriculostomy placement to treat the obstructive hydrocephalus. If there is noted improvement subsequently and the option of possible suboccipital craniectomy for decompression could be considered if the family chooses to continue with the aggressive management although this would be a heroic procedure. The at this point consents to ventriculostomy placement and this was witnessed by the nursing staff. Pt underwent a Bilateral suboccipital decompressive craniectomy; expensive dural bovine patch graft; left cerebellar hemisphere brain biopsy on 07/26/17. P: Continue with Ventriculostomy drain and ICP measurement Continue with critical care Continue with sedation. Shakir Carroll July 31, 2017 9:35 am
[2017-07-31] MEDS: levETIRAcetam INJ 750 MG in SODIUM CHLORIDE 0.9% INJ 100 ML IV SCH ×2 (10:36→22:06)
--- NOTE | 2017-07-31 13:18 | HHI.HCPN ---
Reason for visit a. To assist with evaluation and management of symptoms including: pain; encephalopathy; dyspnea b. To assist medical decision maker(s) with: better understanding of current medical conditions; weighing benefits/burdens of medical treatment options; making medical treatment decisions. . Subjective/Interval History Patient seen and examined in ICU. On mechanical vent to trach. Neurosurgery reports no improvement in neuro status, nurse indicates attempts to lower sedation. Tmax 99.8. HR 50-60. BP 125/68. WBC has increased from 9.4 to 13.1. Total protein 4.7. BC in aerobic and anaerobic bottles + staph epidermidis, multidrug resistant. - resistant to Ceftriaxone, sensitive to Vancomycin. Remains on Dexamethasone 4mg IV every 12 hours. Chest xray basilar airspace disease left greater than right. . Family/friend interactions Roxy Bray LCSW and I spoke with at bedside. Medical update provided. Goals remain aggressive. . Advance Directives Living Will: Copy in medical record Health Care Surrogate: Copy in medical record Durable Power of Science Technician: Completed, but not made available Advance Directive Specifics Date completed: Living will and healthcare surrogate designation were completed on 09/29/2016. . Health Care Surrogate(s): The healthcare surrogate is the patient's spouse--Coty Weaver . Documented care wishes: The patient's living will is the standard [place] living will. He has initialed only one condition to activate his wishes -- if he has "an end-stage condition." He would not want life prolonging procedures should be diagnosed with such condition. . Significant change in goals: FULL CODE. Goals remain aggressive. . Objective Vital Signs Date Time Temp Pulse Resp B/P (MAP) Pulse Ox O2 Delivery O2 Flow Rate FiO2 07/31/17 12:00 98.9 82 23 150/72 (98) 97 07/31/17 12:00 40 07/31/17 12:00 82 07/31/17 11:26 97 40 07/31/17 10:00 57 07/31/17 08:00 52 07/31/17 08:00 100.3 72 22 139/65 (89) 96 07/31/17 08:00 40 07/31/17 07:31 96 40 07/31/17 06:00 58 07/31/17 04:02 98 40 07/31/17 04:00 99.8 56 20 125/66 (85) 95 07/31/17 04:00 40 07/31/17 04:00 57 07/31/17 02:00 62 07/31/17 00:53 96 40 07/31/17 00:00 62 07/31/17 00:00 98.9 56 20 131/60 (83) 96 07/31/17 00:00 40 07/30/17 22:00 57 07/30/17 20:00 64 07/30/17 20:00 40 07/30/17 20:00 98.7 54 20 136/62 (86) 98 07/30/17 19:53 100 40 07/30/17 18:00 82 07/30/17 17:10 97 40 07/30/17 16:00 40 07/30/17 16:00 99.3 66 14 165/75 (105) 97 07/30/17 16:00 60 07/30/17 14:00 56 Intake & Output 07/31/17 07/31/17 06:59 18:59 Intake Total 1481.0 ml Output Total 2532 ml Balance -1051.0 ml IV Total 725.0 ml Tube Feeding 756 ml Output Urine Total 2500 ml Drainage Total 32 ml Physical Exam CONSTITUTIONAL/GENERAL: This is an adequately nourished patient, sedated, mechanically ventilated, in a surgical intensive care unit bed. Unresponsive. TUBES/LINES/DRAINS: Ventriculostomy, tracheostomy, NG tube, Left subclavian central line, Garner catheter, SCDs. HEAD: Ventriculostomy on right. SKIN: Multiple tattoos. No jaundice, rashes, or lesions. No wounds seen anteriorly. Skin temperature appropriate. Not diaphoretic. EYES: Eyes closed. ENT: NG tube, tracheostomy. CARDIOVASCULAR: Regular rate and rhythm without murmurs. RESPIRATORY/CHEST: Symmetric, unlabored respirations on vent. Decreased breath sounds bilaterally. GASTROINTESTINAL: Abdomen soft, non-tender, slightly distended. Bowel sounds present. GENITOURINARY: Without palpable bladder distension. Scrotal edema present. Garner catheter in place. MUSCULOSKELETAL: Extremities with edema. NEUROLOGICAL: Sedated. Unresponsive. PSYCHIATRIC: Unable to evaluate due to level of responsiveness. . Diagnostic Tests Laboratory Laboratory Tests Test 07/28/17 19:33 07/29/17 03:55 5/13/18 10:31 07/30/17 04:10 Sodium Level 154 MEQ/L (136-145) 155 MEQ/L (136-145) 154 MEQ/L (136-145) 154 MEQ/L (136-145) Serum Osmolality 331 MOSM/KG (275-295) Blood Urea Nitrogen 26 MG/DL (7-18) 28 MG/DL (7-18) 29 MG/DL (7-18) Creatinine 0.76 MG/DL (0.60-1.30) 0.89 MG/DL (0.60-1.30) 0.84 MG/DL (0.60-1.30) Random Glucose 167 MG/DL (74-106) 154 MG/DL (74-106) 149 MG/DL (74-106) Total Protein 5.0 GM/DL (6.4-8.2) Albumin 2.0 GM/DL (3.4-5.0) Calcium Level 7.7 MG/DL (8.5-10.1) 7.9 MG/DL (8.5-10.1) 7.5 MG/DL (8.5-10.1) Alkaline Phosphatase 71 U/L (45-117) Aspartate Amino Transf (AST/SGOT) 58 U/L (15-37) Alanine Aminotransferase (ALT/SGPT) 127 U/L (12-78) Total Bilirubin 0.1 MG/DL (0.2-1.0) Potassium Level 3.7 MEQ/L (3.5-5.1) 3.9 MEQ/L (3.5-5.1) 3.6 MEQ/L (3.5-5.1) Chloride Level 121 MEQ/L (98-107) 120 MEQ/L (98-107) 117 MEQ/L (98-107) Carbon Dioxide Level 28.7 MEQ/L (21.0-32.0) 26.7 MEQ/L (21.0-32.0) 30.1 MEQ/L (21.0-32.0) Anion Gap 5 MEQ/L (5-15) 7 MEQ/L (5-15) 7 MEQ/L (5-15) Estimat Glomerular Filtration Rate 103 ML/MIN (>89) 86 ML/MIN (>89) 92 ML/MIN (>89) White Blood Count 9.4 TH/MM3 (4.0-11.0) Red Blood Count 2.95 MIL/MM3 (4.50-5.90) Hemoglobin 9.6 GM/DL (13.0-17.0) Hematocrit 27.9 % (39.0-51.0) Mean Corpuscular Volume 94.8 FL (80.0-100.0) Mean Corpuscular Hemoglobin 32.7 PG (27.0-34.0) Mean Corpuscular Hemoglobin Concent 34.5 % (32.0-36.0) Red Cell Distribution Width 14.1 % (11.6-17.2) Platelet Count 410 TH/MM3 (150-450) Mean Platelet Volume 7.4 FL (7.0-11.0) Neutrophils (%) (Auto) 77.6 % (16.0-70.0) Lymphocytes (%) (Auto) 12.0 % (9.0-44.0) Monocytes (%) (Auto) 10.4 % (0.0-8.0) Eosinophils (%) (Auto) 0.0 % (0.0-4.0) Basophils (%) (Auto) 0.0 % (0.0-2.0) Neutrophils # (Auto) 7.3 TH/MM3 (1.8-7.7) Lymphocytes # (Auto) 1.1 TH/MM3 (1.0-4.8) Monocytes # (Auto) 1.0 TH/MM3 (0-0.9) Eosinophils # (Auto) 0.0 TH/MM3 (0-0.4) Basophils # (Auto) 0.0 TH/MM3 (0-0.2) CBC Comment DIFF FINAL Differential Comment Phosphorus Level 3.8 MG/DL (2.5-4.9) Magnesium Level 2.7 MG/DL (1.5-2.5) Vancomycin Level Trough 6.3 MCG/ML (5.0-10.0) Test 07/31/17 06:05 White Blood Count 13.1 TH/MM3 (4.0-11.0) Red Blood Count 2.82 MIL/MM3 (4.50-5.90) Hemoglobin 8.9 GM/DL (13.0-17.0) Hematocrit 26.9 % (39.0-51.0) Mean Corpuscular Volume 95.2 FL (80.0-100.0) Mean Corpuscular Hemoglobin 31.7 PG (27.0-34.0) Mean Corpuscular Hemoglobin Concent 33.3 % (32.0-36.0) Red Cell Distribution Width 13.7 % (11.6-17.2) Platelet Count 387 TH/MM3 (150-450) Mean Platelet Volume 7.5 FL (7.0-11.0) Blood Urea Nitrogen 32 MG/DL (7-18) Creatinine 0.77 MG/DL (0.60-1.30) Random Glucose 95 MG/DL (74-106) Total Protein 4.7 GM/DL (6.4-8.2) Calcium Level 7.2 MG/DL (8.5-10.1) Sodium Level 152 MEQ/L (136-145) Potassium Level 3.8 MEQ/L (3.5-5.1) Chloride Level 117 MEQ/L (98-107) Carbon Dioxide Level 30.8 MEQ/L (21.0-32.0) Anion Gap 4 MEQ/L (5-15) Estimat Glomerular Filtration Rate 101 ML/MIN (>89) Protein Corrected Calcium 8.5 MG/DL (8.5-10.1) Result Diagram: 07/31/1760407/31/17 06 Microbiology Microbiology Date/Time Source Procedure Growth Status 07/28/17 07:35 Blood Peripheral Aerobic Blood Culture - Final Staphylococcus Epidermidis Complete 07/28/17 07:35 Anaerobic Blood Culture - Final Staphylococcus Epidermidis Complete 07/26/17 10:50 Cerebral Spinal Fluid Shunt Fluid Acid Fast Stain - Final NO ACID FAST BACILLI SEEN Resulted 07/26/17 10:50 Cerebral Spinal Fluid Shunt Fluid Mycobacterial Culture Pending Resulted 07/27/17 16:30 Sputum Endotracheal Gram Stain - Final Complete 07/27/17 16:30 Sputum Endotracheal Sputum Culture - Final LIGHT GROWTH NORMAL RESPIRATORY LUBA Complete 07/20/17 22:50 Urine Catheterized Urine Legionella Antigen - Final PRESUMPTIVE NEGATIVE FOR LEGIONELLA P... Complete 07/20/17 22:50 Urine Catheterized Urine Streptococcus pneumoniae Antigen (M - Final PRESUMPTIVE NEGATIVE FOR STREPTOCOCCU... Complete 07/26/17 14:19 Wound Other Fungal Smear - Final NO FUNGAL ELEMENTS SEEN. Resulted 07/26/17 14:19 Wound Other Fungal Culture Pending Resulted Imaging Last Impressions Chest X-Ray 5/15/18 0600 Signed Impressions: Service Date/Time: Monday, July 31, 2017 05:14 - CONCLUSION: 1. Basilar airspace disease, left greater than right similar to July 29. Support apparatus unchanged. Ananda Messina MD Head CT 07/27/17 0600 Signed Impressions: Service Date/Time: Thursday, July 27, 2017 13:39 - CONCLUSION: 1. Decrease in ventricular size since July 25. Extensive low attenuation and swelling in both occipital lobes and also in the periventricular region, basal ganglia and focally in the right occipital lobe. Differential diagnosis includes edema or evolving infarcts. There is mass effect on the brainstem and posterior fossa with effacement of the fourth ventricle. Ananda Messina MD Abdomen X-Ray 07/27/17 Signed Impressions: Service Date/Time: Thursday, July 27, 2017 20:37 - CONCLUSION: NG tube coiled in the lower thoracic esophagus. Oumar Bray Jr., MD Head/Brain Mag Res Venography 07/25/17 Signed Impressions: Service Date/Time: Tuesday, July 25, 2017 19:54 - CONCLUSION: Patent dural sinuses. Lonnie Munguia MD Brain MRI 07/25/17 Signed Impressions: Service Date/Time: Tuesday, July 25, 2017 10:37 - CONCLUSION: Worsening brain appearance with developing hydrocephalus which is presumably related to increasing edema in the posterior fossa. See above discussion. Lonnie Lock MD Neck Magnetic Resonance Angiography 07/21/17 Signed Impressions: Service Date/Time: Friday, July 21, 2017 08:40 - CONCLUSION: No acute neck arteriovascular abnormality is identified. There is no significant stenosis within either internal carotid artery. Lonnie Ross MD Head Magnetic Resonance Angiography 07/21/17 Signed Impressions: Service Date/Time: Friday, July 21, 2017 08:40 - CONCLUSION: No acute intracranial vascular abnormality is identified. Lonnie Ross MD Abdomen Ultrasound 07/21/17 Signed Impressions: Service Date/Time: Friday, July 21, 2017 15:47 - CONCLUSION: Cholelithiasis. No gallbladder wall thickening or pericholecystic fluid. Victo rManuel Barros MD Procedures * Intubation/mechanical ventilation * Ventriculostomy drain placement * Central line placement * Decompressive suboccipiatl craniotomy 07/26/17 . . Assessment and Plan Disease Oriented Problem List: (1) Stroke Comment: Evolving with obstructive hydrocephalus and cerebral edema requiring emergent ventriculostomy placement on 07/25/17 . (2) Acute respiratory failure (3) Seizure Comment: EEG negative on 07/25/17 but tube sorter felt patient had seizure activity. Would not be surprising given level of cerebral edema. . (4) Failed back syndrome (5) COPD (chronic obstructive pulmonary disease) (6) Hyperkalemia (7) Acute kidney injury (8) Rhabdomyolysis (9) Tobacco abuse disorder (10) Chronic, continuous use of opioids (11) Depression (12) Hypertension (13) Hyperlipidemia Symptom Scale: (1) Pain 0-10 Scale: Unable to quantify Comment: Patient has long history of chronic pain from his back for which he has undergone multiple surgeries. Has been on chronic opioids for many years. Additional sources of pain might now also include recent craniotomy; cerebral edema; prisca hole placement; prolonged bedbound status; Garner catheter; vascular access catheters; restraints; orotracheal intubation; orogastric intubation. . (2) Encephalopathy 0-10 Scale: Unable to quantify Comment: Encephalopathy may be multifactorial. It appears he has had multiple strokes, cerebral edema, acute kidney injury, and electrolyte abnormalities all of which which are likely contributing to encephalopathy. . . (3) Dyspnea 0-10 Scale: Unable to quantify Comment: Currently managed with mechanical ventilation. . Pertinent Non-Medical Issues Psychosocial: Patient is well supported locally by his spouse. He has a biological son who lives in [place], [place], but who is here now. Spiritual: [employer] and spirituality have not played an important role in his life. Legal: Patient has a living will and designation of healthcare surrogate currently scanned into our electronic medical record. His is his surrogate. Ethical issues impacting care: Patient is currently incapacitated to make his own healthcare decisions. It is unclear if/when he will regain capacity to do so. . Important Contacts * Coty Weaver (spouse and health care surrogate) [phone] and [phone] * Blake Castillo (son) [phone] . Prognosis The patient's prognosis is now much worse with the obstructive hydrocephalus and cerebral edema requiring emergent ventriculostomy placement and then decompressive craniotomy. Should he survive the hospitalization, chances of meaningful recovery are much less. . Code Status: Full Code Plan * Decision Making: Patient is currently incapacitated to make his own healthcare decisions, unlikely that he will regain capacity. He has designated his spouse--Coty Weaver as healthcare surrogate. * FULL CODE * Goals of medical treatment: Goals currently remain aggressive, including FULL CODE. is verbalizing he may not survive this admission. She is not yet ready to consider transition transition. Will need medical team to continue to discuss prognosis, as she verbalizes not knowing what the "doctors are thinking. Symptoms (see symptom descriptions above): * Pain: Patient has multiple acute sources of pain as noted above, on top of his chronic back pain. He is currently sedated; pain appears adequately controlled. Current regimen appears to be effective. No further recommendations at this time. * Dyspnea: Patient is a long-term smoker and now unable to protect his airway. Dyspnea is currently being managed by mechanical ventilation. Was tolerating CPAP prior to his apparent seizure and subsequent craniotomy. Anticipate need for ongoing full vent support, and tracheostomy much more likely needed if family would wish aggressive goals. No further recommendations at this time. * Agitation: Agitation is probably from a multifactorial delirium. Patient had been managed with dexmedetomidine in MICU. Now sedated with propofol. Await to see if agitation increases or decreases should responsiveness return. * Encephalopathy multifactorial.: We will continue to address the fixable contributors such as metabolic issues and possible infection. Psychoactive drugs present in urine tox screen have probably all cleared by now. Main source of encephalopathy now the stroke and associated edema. Palliative care will continue to follow to assist with symptom management and to further clarify goals of medical treatment as the clinical course evolves. . . Attestation To help prompt me to consider important information that might be impacting today's encounter and assessment, information from prior notes written by myself or my colleagues may have been "brought forward" into today's note. My signature on this note, however, is an attestation that I personally performed the exam, history, and/or decision-making noted today, and, unless otherwise indicated, the interactions with patient, family, and staff as well as the review of records all occurred today. I also attest that the listed assessment and stated plan reflect my best clinical judgment today based on the combination of historical information, prior notes, and today's exam/ interactions. When time spent is documented, it refers only to time spent today by the signer, or if indicated, combined time spent today by collaborating physician/nurse practitioner. Lindsay Oro July 31, 2017 13:18
--- NOTE | 2017-07-31 13:49 | PD.CARD.PN ---
Subjective Subjective Remarks trached, sedated Objective Medications Current Medications Medications (Trade) Dose Ordered Sig/Claudia Route Start Time Stop Time Status Last Admin (NS Flush) 2 ml UNSCH PRN IV FLUSH 07/21/17 00:00 (NS Flush) 2 ml BID IV FLUSH 07/21/17 09:00 07/31/17 09:22 (Tears Naturale Opth Soln) 1 drop TID EACH EYE 07/21/17 09:00 07/31/17 12:25 (Zofran Inj) 4 mg Q6H PRN IV PUSH 07/21/17 00:00 (Albuterol Neb) 2.5 mg Q2HR NEB PRN INH 07/21/17 00:00 07/30/17 08:56 ([facility]) 1 Q361D XX 07/21/17 00:00 07/21/17 00:00 (Chlorhexidine 2% Cloth) Taper DAILY@04 TOP 07/21/17 04:00 07/17/18 03:59 07/25/17 04:00 (Chlorhexidine 2% Cloth) 3 pack UNSCH PRN TOP 07/21/17 00:00 (Dilia-Colace) 1 tab BID PO 07/21/17 09:00 07/31/17 09:22 (Milk Of Magnesia Liq) 30 ml Q12H PRN PO 07/21/17 00:00 (Senokot) 17.2 mg Q12H PRN PO 07/21/17 00:00 (Dulcolax Supp) 10 mg DAILY PRN RECTAL 07/21/17 00:00 (Lactulose Liq) 30 ml DAILY PRN PO 07/21/17 00:00 (Peridex 0.12% Liq) 15 ml BID@08,20 MT 07/21/17 08:00 07/31/17 08:00 (D50w (Vial) Inj) 50 ml UNSCH PRN IV PUSH 07/21/17 00:00 (Glucagon Inj) 1 mg UNSCH PRN OTHER 07/21/17 00:00 (NovoLOG SUPPLEMENTAL SCALE) 1 Q6HR SQ 07/21/17 00:00 07/30/17 17:49 (Pulmicort Respule Neb) 0.5 mg Q12HR NEB NEB 07/21/17 08:00 07/31/17 07:30 (Brethine Inj) 1 mg UNSCH PRN SQ 07/21/17 00:30 (Lactulose Liq) 30 ml DAILY PO 07/22/17 09:00 07/31/17 09:22 (Apresoline Inj) 10 mg Q1H PRN IV PUSH 07/22/17 09:45 07/24/17 19:51 (Nitroglycerin 2% Oint) 2 inch Q6H PRN TOPICAL 07/22/17 09:45 (Miralax) 17 gm BID PO 07/23/17 21:00 07/31/17 09:22 Levetriacetam 750 mg/Sodium Chloride 107.5 ml @ 420 mls/hr Q12H IV 07/25/17 10:00 07/31/17 10:36 (Pepcid) 20 mg Q12HR PO 07/25/17 21:00 07/31/17 09:22 (Brethine Inj) 1 mg UNSCH PRN SQ 07/26/17 09:45 Propofol 100 ml @ 3.102 mls/ hr TITRATE PRN IV 07/26/17 11:00 07/31/17 10:05 Fentanyl Citrate 250 ml @ 5 mls/hr TITRATE PRN IV 07/26/17 11:00 07/31/17 06:53 (Lactinex) 1 tab TID PO 07/28/17 18:00 07/31/17 13:00 (Norvasc) 5 mg BID PO 07/29/17 09:00 07/31/17 09:22 (Lasix Inj) 40 mg BID@,18 IV PUSH 07/29/17 09:00 07/31/17 09:22 (Prinivil) 10 mg DAILY PO 07/29/17 09:00 07/31/17 09:22 (Apresoline) 50 mg Q8H PRN PO 07/30/17 09:15 Pharmacy Profile Note 0 ml @ 0 mls/hr UNSCH OTHER 07/30/17 13:00 Ceftriaxone Sodium 2000 mg/ Sodium Chloride 100 ml @ 200 mls/hr Q24H IV 07/30/17 14:00 07/30/17 14:28 Vancomycin HCl 1750 mg/Sodium Chloride 517.5 ml @ 250 mls/hr Q12H IV 07/30/17 16:00 07/31/17 04:44 ([facility] Ordered Lab Info) SPECIFIC LAB TO BE ... ONCE ONCE .XX 08/01/17 03:45 08/01/17 03:46 (Apresoline) 100 mg Q8H PO 07/30/17 18:00 07/31/17 12:25 (Decadron Inj) 4 mg Q12HR IV PUSH 07/30/17 21:00 07/31/17 20:59 07/31/17 09:22 Vital Signs / I&O Vital Signs Date Time Temp Pulse Resp B/P (MAP) Pulse Ox O2 Delivery O2 Flow Rate FiO2 07/31/17 12:00 98.9 82 23 150/72 (98) 97 07/31/17 12:00 40 07/31/17 12:00 82 07/31/17 11:26 97 40 07/31/17 10:00 57 07/31/17 08:00 52 07/31/17 08:00 100.3 72 22 139/65 (89) 96 07/31/17 08:00 40 07/31/17 07:31 96 40 07/31/17 06:00 58 07/31/17 04:02 98 40 07/31/17 04:00 99.8 56 20 125/66 (85) 95 07/31/17 04:00 40 07/31/17 04:00 57 07/31/17 02:00 62 07/31/17 00:53 96 40 07/31/17 00:00 62 07/31/17 00:00 98.9 56 20 131/60 (83) 96 07/31/17 00:00 40 07/30/17 22:00 57 07/30/17 20:00 64 07/30/17 20:00 40 07/30/17 20:00 98.7 54 20 136/62 (86) 98 07/30/17 19:53 100 40 07/30/17 18:00 82 07/30/17 17:10 97 40 07/30/17 16:00 40 07/30/17 16:00 99.3 66 14 165/75 (105) 97 07/30/17 16:00 60 07/30/17 14:00 56 I/O 07/30/17 07/30/17 07/30/17 07/31/17 07/31/17 07/31/17 07:00 15:00 23:00 07:00 15:00 23:00 Intake Total 942 ml 820 ml 517.5 ml 963.5 ml Output Total 1880 ml 2580 ml 2532 ml Balance -938 ml -1760 ml 517.5 ml -1568.5 ml IV Total 200 ml 517.5 ml 207.5 ml Tube Feeding 742 ml 700 ml 756 ml Other 120 ml Output Urine Total 1800 ml 2500 ml 2500 ml Drainage Total 80 ml 80 ml 32 ml # Bowel Movements 2 1 Physical Exam GENERAL: SKIN: Warm and dry. HEAD: Normocephalic. EYES: No scleral icterus. No injection or drainage. NECK: Supple, trachea midline. No JVD or lymphadenopathy. CARDIOVASCULAR: Regular rate and rhythm without murmurs, gallops, or rubs. RESPIRATORY: Breath sounds equal bilaterally. No accessory muscle use. GASTROINTESTINAL: Abdomen soft, non-tender, nondistended. MUSCULOSKELETAL: No cyanosis, or edema. BACK: Nontender without obvious deformity. No CVA tenderness. Laboratory Laboratory Tests Test 07/31/17 06:05 White Blood Count 13.1 TH/MM3 Red Blood Count 2.82 MIL/MM3 Hemoglobin 8.9 GM/DL Hematocrit 26.9 % Mean Corpuscular Volume 95.2 FL Mean Corpuscular Hemoglobin 31.7 PG Mean Corpuscular Hemoglobin Concent 33.3 % Red Cell Distribution Width 13.7 % Platelet Count 387 TH/MM3 Mean Platelet Volume 7.5 FL Blood Urea Nitrogen 32 MG/DL Creatinine 0.77 MG/DL Random Glucose 95 MG/DL Total Protein 4.7 GM/DL Calcium Level 7.2 MG/DL Sodium Level 152 MEQ/L Potassium Level 3.8 MEQ/L Chloride Level 117 MEQ/L Carbon Dioxide Level 30.8 MEQ/L Anion Gap 4 MEQ/L Estimat Glomerular Filtration Rate 101 ML/MIN Protein Corrected Calcium 8.5 MG/DL Imaging Last 24 hours Impressions Chest X-Ray 07/31/17 0600 Signed Impressions: Service Date/Time: Monday, July 31, 2017 05:14 - CONCLUSION: 1. Basilar airspace disease, left greater than right similar to July 29. Support apparatus unchanged. Ananda Messina MD Assessment and Plan Problem List: (1) Toxic metabolic encephalopathy ICD Codes: G92 - Toxic encephalopathy (2) Tetrahydrocannabinol (THC) use disorder, mild, abuse ICD Codes: F12.10 - Cannabis abuse, uncomplicated (3) Encephalopathy ICD Codes: G93.40 - Encephalopathy, unspecified (4) Stroke ICD Codes: I63.9 - Cerebral infarction, unspecified (5) Chronic, continuous use of opioids ICD Codes: F11.90 - Opioid use, unspecified, uncomplicated (6) Cocaine use ICD Codes: F14.90 - Cocaine use, unspecified, uncomplicated Assessment and Plan 1.) I am not sure if he is stable enough to undergo head and neck manipulation to undergo swapnil; he is intubated so i cant assess his ability to swallow; will consider swapnil if risk benefit ratio favors it, he is cleared by neurology and neurosurgery for head and neck manipulation and if findings may change director 2.) D/w Dr Epperson 07/28/17; agrees that swapnil will not change short term management and put patient at risk of neurologic injury from neck manipulation during swapnil, d/w nurse at bedside as well 3.) Will d/w ID and NS risks/benefits of swapnil; d/w at bedside 07/31/17 Navid Corrales MD July 31, 2017 13:48
[2017-07-31] MEDS: cefTRIAXone INJ 2,000 MG in SODIUM CHLORIDE 0.9% INJ 100 ML IV SCH (14:00)
--- NOTE | 2017-07-31 14:23 | HHI.CCPN ---
Subjective Remarks/Hospital Course This is a 66-year-old male. Date of admission 07/20/2017. Past medical history includes hypertension, hyperlipidemia, COPD with ongoing tobacco abuse, peptic ulcer disease and anxiety. He also has history of lumbar stenosis, degenerative joint disease of the back and cervical spine. He presents to [facility] with the following history. 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 According to his at bedside, patient is drug tested. Patient returned home from work on Sunday after his 30 day work schedule. Patient was changing the tire of a bike friend yesterday. Patient returned home in no acute distress. Today, patient was tired and was sleeping all day. Initially patient had similar symptoms at lunch. When the attempted to wake him up later this evening patient be was nonresponsive with a weak pulse. She attempted to use ammonia without response. At that time EMS was called and patient was transferred to [facility]. Patient was noted to be an acute change with a creatinine of 3.8. Baseline is normal. Potassium is 7.4 without EKG changes. Patient received bicarbonate, insulin/D50, calcium and Kayexalate in the ED. Repeat potassium 3 hours. Patient is making urine and appears concentrated. UA is pending. Patient leukocytosis 13,000. CPK was 5000. Lactic acid was 2.6. Urine drug screen revealed positive for opiates, amphetamines, benzodiazepines, THC and cocaine. Head CT is currently pending. Due to altered mental status patient was admitted after receiving 20 mg etomidate and 100 mg succinylcholine by ED physician. Patient also received 4 mg of midazolam and after which patient became hypotensive is currently receiving 3 L normal saline wide open. Head CT is currently pending. Patient received clindamycin along with piperacillin/ tazobactam in the ED. 07/21: Overnight the patient required to protamine infusion low-dose currently being weaned off. The patient continues on fentanyl and propofol infusion for ventilator synchrony. Patient's undergoing MRI evaluation results pending. The patient was noted to have significant elevation in creatinine kinase the patient is bolused 1 L IV fluids increase in normal saline 200 cc/hr. Lactic acid downtrending will continue to trend creatinine noted to be decreasing. 07/22: Currently afebrile. Off all vasopressors. We will switch to LR at 200 cc an hour. Recheck BMP this afternoon. Moving all 4 x-rays spontaneously right upper extremity less. Opens eyes but not following commands. Positive gag and corneal reflex. Subjective: 07/23: Currently on dexmedetomidine drip at 0.7 mg/kg/h. Minimal response to distinguish. Will hold at the present time and reassess neurological condition. EEG showed no epileptiform activity. Tolerating tube feeding. No bowel movement since admission. Currently afebrile. 07/24: Per nursing staff patient was off sedation over the night and he woke up and followed some simple commands, but due to agitation, hypertension and tachycardia patient was restarted on sedation. He is currently on Precedex at 1 , tolerating CPAP, sedated. T-max of 99. I/O 3029/1451. 07/25: No events over the night. This morning while attempting CPAP trial patient became rigid, unresponsive, with gaze deviation, tachypneic tachycardic and hypertensive, suggesting seizure activity. Patient was immediately given Ativan 2 mg 1 with resolution of episode. Neurology was contacted and plan for EEG and CT head as well as propofol infusion. No family present at bedside. T-max of 100.7 over the night. Urine output 2300 mL's over the last 24 hours. 07/26: EVD placed yesterday for declining mental status with hydrocephalus and severe cerebellar edema. this AM, extensor posturing. supratentorial ICPs controlled, but cerebellar edema persists. discussed with Dr. Castillo: csf could be consistent with encephalitis. d/w Dr. Barrow: will need posterior fossa decompression. 07/27: no improvements in mental status. s/p suboccipital crani yesterday. remains intermittently on cardene and levophed to maintain cpp. ICP controlled. brain biopsies pending. 07/28: Osmolality suitably concentrated. ICP well controlled. Maintaining head up position. On attempted CPAP trial patient has 25 second periods of apnea. Unstable neurological status we will not stress him with extended spontaneous breathing trials. 07/29: Requiring Cardene still to maintain systolic blood pressure less than 160. Markedly edematous and will need to start active diuresis. No change in neurologic function. Apnea episodes persist. 07/30: off cardene. still grossly volume overloaded. neuro exam remains poor. 07/31: no improvement in mental status. wbc slight uptrend. afebrile. awaiting MRI for prognostication and to re-evaluate edema. adequate diuresis yesterday. Objective Vital Signs Date Time Temp Pulse Resp B/P (MAP) Pulse Ox O2 Delivery O2 Flow Rate FiO2 07/31/17 14:00 63 07/31/17 12:00 98.9 23 150/72 (98) 97 07/31/17 12:00 40 Intake and Output 07/31/17 07/31/17 08/01/17 08:00 16:00 00:00 Intake Total 1273.5 ml 207.5 ml Output Total 2532 ml Balance -1258.5 ml 207.5 ml Result Diagram: 07/31/1760407/31/17604 Imaging Last 24 hours Impressions Chest X-Ray 07/24/17599 Signed Impressions: Service Date/Time: Monday, July 24, 2017 03:41 - CONCLUSION: Patchy diffuse interstitial prominence and pulmonary vascular prominence unchanged. Ankur Shields MD Last Impressions Chest X-Ray 07/23/17599 Signed Impressions: Service Date/Time: Sunday, July 23, 2017 04:10 - CONCLUSION: Lungs grossly clear. Tubes and catheter in good position. Ankur Shields MD Neck Magnetic Resonance Angiography 07/21/17 Signed Impressions: Service Date/Time: Friday, July 21, 2017 08:40 - CONCLUSION: No acute neck arteriovascular abnormality is identified. There is no significant stenosis within either internal carotid artery. Lonnie Ross MD Head Magnetic Resonance Angiography 07/21/17 Signed Impressions: Service Date/Time: Friday, July 21, 2017 08:40 - CONCLUSION: No acute intracranial vascular abnormality is identified. Lonnie Ross MD Brain MRI 07/21/17 Signed Impressions: Service Date/Time: Friday, July 21, 2017 08:40 - CONCLUSION: Multifocal areas of restricted diffusion/recent ischemia within the centrum semiovale bilaterally, bilateral occipital lobes, bilateral basal ganglia, bilateral temporal lobes, and bilateral cerebellar hemispheres. Findings could be related to global anoxic event or less likely embolic phenomenon. Lonnie Ross MD Abdomen Ultrasound 07/21/17 Signed Impressions: Service Date/Time: Friday, July 21, 2017 15:47 - CONCLUSION: Cholelithiasis. No gallbladder wall thickening or pericholecystic fluid. Victor Manuel Barros MD Head CT 07/20/17 3288 Signed Impressions: Service Date/Time: Friday, July 21, 2017 00:53 - CONCLUSION: Abnormal brain appearance. Recommend MRI for further evaluation Lonnie Lock MD Objective Remarks General - middle-aged gentleman, intubated, ill-appearing, unresponsive HEENT - pupils equal, dilated, reactive, sclerae anicteric, neck supple, no nuchal rigidity. CV - normal rate, regular rhythm. sinus. no JVD Chest - equal chest rise. full mechanical support. PRVC. fio2 40%. peep 5. Decreased breath sounds both bases. Abdomen - soft, non-tender, non-distended, no guarding. Skin - no rashes, no cyanosis, multiple tattoos bilateral upper extremities and thorax Extremities - warm and well perfused, no edema, + peripheral pulses, no clubbing Neuro - intubated via tracheostomy, off sedation, unresponsive, pupils equal and reactive, extensor posturing. Apnea episodes on spontaneous breathing. A/P Assessment and Plan Assessment: 66yM with acute encephalopathy and severe cerebellar edema of unclear etiology. very critically ill with ongoing life-threatening malignant cerebral edema in the posterior fossa. s/p suboccipital crani for decompression 07/26 and brain biopsies. continue hyperosmolar therapy and supportive care. Unlikely to have a favorable outcome. very poor prognosis. remains critically ill. goals remain aggressive. repeat MRI today for prognostication and to eval edema. continue diuresis as able. Neuro/Psych: Toxic metabolic encephalopathy Polysubstance abuse disorder - UDS positive for opiates, benzos, amphetamines, THC and cocaine Depression Anxiety disorder Possible hypoxic ischemic encephalopathy Concern for new onset seizure Malignant Cerebellar edema Elevated ICP s/p suboccipital crani 10 for decompression frequent neuro checks goal RASS -2. neurology: Dr. Castillo following neurosurgery: Dr. Barrow following. hyperosmolar therapy serial sodiums, osms Hold 3% nacl, osmolality 155. CT brain 07/21 There is patchy mild diminished attenuation in centrum semi-ovale bilaterally. There is mild heterogeneous diminished density in the genu region of internal capsules and globus pallidus bilaterally. There is vague diminished density in the cerebellar hemispheres bilaterally. There is no evidence of intracranial mass or hemorrhage. There is no abnormal extra-axial fluid accumulation or shift present. 07/21 MRI brain-Multifocal areas of restricted diffusion/recent ischemia within the centrum semiovale bilaterally, bilateral occipital lobes, bilateral basal ganglia, bilateral temporal lobes, and bilateral cerebellar hemispheres. Findings could be related to global anoxic event or less likely embolic phenomenon. 07/21 EEG revealed no epileptic activity 07/21-MRA brain/neck -no acute findings UDS + opiates, amphetamines, benzodiazepines, THC and cocaine CSF studies all negative. brain biopsies negative. EVD placed 07/25 by [facility]. CV: History of essential hypertension Hyperlipidemia Lactic acidosis -resolved Sinus bradycardia- secondary to elevated ICP Holding valsartan 320 mg p.o. daily due to hypotension/acute kidney injury Holding rosuvastatin 10 mg p.o. q. Sunday/Sunday/Sunday due to elevated LFTs. Resume when clinically indicated. amlodipine 5mg po BID lisinopril 10mg daily. TTE results reviewed, LV size normal, EF of 55%. Resp: Acute hypoxemic and hypercarbic respiratory failure Tobacco use disorder [facility] Albuterol/ipratropium aerosols every 6 hours with albuterol aerosol every 2 hours as needed dyspnea budesonide 0.5/2 1 inhalation twice daily since on budesonide/formoterol 160/ 4.5 1 puff twice daily at home along with albuterol inhaler twice daily no weaning of mechanical ventilation until mental status and ICP improves wean fio2 for goal spo2 > 90% hob elevated Tracheostomy 07/28. GI: Elevated transaminases -slowly trending down Rhabdomyolysis -improving, urine output is adequate, CPK trending down Cholelithiasis CK levels-5000->97204->20K --> 5930 --> 3370 07/21 Liver ultrasound revealed cholelithiasis Hepatitis panel-negative Tube feeding with Neutra hep goal 45 cc an hour Lansoprazole for GI prophylaxis Docusate/senna 1 tablet twice daily for bowel regimen will need G tube at some point, hold off for now. likely later this week. : Metabolic alkalosis Adler catheter has been placed for accurate I's and O's in a critically ill patient keep adler today. continue forced diuresis. diamox x 1 for alkalosis Endo: Sliding scale insulin with NovoLog with Accu-Cheks every 6 hours to maintain euglycemia/low regimen Hemoglobin A1c documented at 6.1 Renal: Acute kidney injury -resolved Rhabdomyolysis resolved. Acute intravascular Volume overload -persistent. lasix 40mg iv q12h Monitor urine output Accurate I's and O's Renal ultrasound revealed no hydronephrosis bilaterally / Urine eosinophils negative. Avoid nephrotoxic drugs Heme: Normocytic anemia Monitor CBC daily. Follow trend hold SQH ID: Staph bacteremia Received piperacillin/tazobactam and clindamycin ED for possible aspiration Blood cultures 2, UA, sputum 07/21 all pending/no growth to date Strep pneumo, Legionella urine antigens-negative ID involved and following. on Rocephin for staph in 2/2 bottles blood cultures. FEN: Hypophosphatemia -resolved Electrolyte protocol MSK: History of multiple lumbar/cervical spine surgeries PT evaluate and treat Access 07/25: left SC TLC 07/26: right radial art line adler 07/25 EVD Prophylaxis -GI -lansoprazole -DVT -SCD/ Heparin SQ Overall impression: This gentleman remains critically ill with a pronounced neurologic injury. Osmolality is acceptably concentrated and we will hold hypertonic saline for now. Cerebral perfusion pressure is suitably high. Paulo Boswell MD July 31, 2017 14:23
[2017-08-01] VITALS (17 sets, daily range): BP systolic 105–149; BP diastolic 57–68; PULSE 61–87; RESP 20–26; TEMP 99.1–99.9; O2SAT 96–100
[2017-08-01] MEDS: PROPOFOL 1000 MG/100 ML INJ 100 ML IV PRN ×5 (01:11→18:52)
[2017-08-01] MEDS: hydrALAZINE HCL 50 MG TAB PO SCH ×3 (02:14→18:24)
[2017-08-01] MEDS ORDERED: PHARMACY ORDERED LAB ONE (03:45)
[2017-08-01 03:54] LABS: HEMATOCRIT 32.8 % (39.0-51.0); HEMOGLOBIN 10.8 GM/DL (13.0-17.0); MEAN CELL VOLUME 93.7 FL (80.0-100.0); MEAN CORPUSCULAR HEMOGLOBIN 30.8 PG (27.0-34.0); MEAN CORPUSCULAR HGB CONC 32.9 % (32.0-36.0); MEAN PLATELET VOLUME 7.6 FL (7.0-11.0); PLATELET COUNT 446 TH/MM3 (150-450); WHITE BLOOD COUNT 19.9 TH/MM3 (4.0-11.0)
[2017-08-01] MEDS: CHLORHEXIDINE GLUCONATE 2 % 1 PACK (2 CLOTHS) TOP SCH (03:57)
[2017-08-01] MEDS: VANCOMYCIN INJ 1,750 MG in SODIUM CHLORID 0.9% 500 ML INJ 500 ML IV SCH ×2 (04:00→16:10)
[2017-08-01 04:20] LABS: BICARBONATE 31.3 MEQ/L (21.0-32.0); CALCIUM 7.6 MG/DL (8.5-10.1); CREATININE 0.71 MG/DL (0.60-1.30)
[2017-08-01] MEDS: INSULIN ASPART SUPPLEMENTAL SCALE SQ SCH ×3 (05:53→18:00)
[2017-08-01] MEDS: fentaNYL DRIP 250 ML IV PRN ×2 (06:07→14:30)
[2017-08-01] MEDS: RESP: BUDESONIDE 0.5 MG/2 ML NEB NEB SCH ×2 (07:36→20:51)
--- NOTE | 2017-08-01 07:43 | HHI.PR ---
Subjective Remarks postop Objective Vital Signs Date Time Temp Pulse Resp B/P (MAP) Pulse Ox O2 Delivery O2 Flow Rate FiO2 08/01/17 07:32 100 40 08/01/17 06:00 76 08/01/17 04:52 96 40 08/01/17 04:00 40 08/01/17 04:00 99.5 72 20 138/65 (89) 99 08/01/17 04:00 72 08/01/17 02:42 99 40 08/01/17 02:00 66 08/01/17 00:00 99.1 61 20 139/67 (91) 97 08/01/17 00:00 62 08/01/17 00:00 40 07/31/17 23:29 100 40 07/31/17 22:00 58 07/31/17 20:00 40 07/31/17 20:00 99.3 96 21 154/74 (100) 96 07/31/17 20:00 96 07/31/17 19:28 100 40 07/31/17 18:00 80 07/31/17 16:00 66 07/31/17 16:00 99.1 66 22 144/67 (92) 97 07/31/17 16:00 40 07/31/17 14:49 98 40 07/31/17 14:00 63 07/31/17 12:00 98.9 82 23 150/72 (98) 97 07/31/17 12:00 40 07/31/17 12:00 82 07/31/17 11:26 97 40 07/31/17 10:00 57 07/31/17 08:00 52 07/31/17 08:00 100.3 72 22 139/65 (89) 96 07/31/17 08:00 40 I/O 07/31/17 07/31/17 07/31/17 08/01/17 08/01/17 08/01/17 07:00 15:00 23:00 07:00 15:00 23:00 Intake Total 517.5 ml 1063.5 ml 987 ml 1593 ml Output Total 2532 ml 2300 ml 2727 ml Balance 517.5 ml -1468.5 ml -1313 ml -1134 ml IV Total 517.5 ml 307.5 ml 207 ml 967 ml Tube Feeding 756 ml 780 ml 626 ml Output Urine Total 2500 ml 2300 ml 2650 ml Drainage Total 32 ml 77 ml # Bowel Movements 0 2 Result Diagram: 08/01/17 0330 08/01/17329 Objective Remarks on vent on sedatives pupil= unresponsive fully sedated no change Assessment and Plan Assessment and Plan imp a lot of edema increased from 07/21 i started steroids high dose in case encephalitis echo andlabs and eeg neg csf some histiocytes ow underwhelming on acyclovir i sid id the casethought noninfectious hsv pend critically ill ct by nicole ferguson pend 07/30/17 not much new would like to get mri at some point to gauge where we are all csf neg cx neg bands neg labs neg i sid nurse and 08/01/17 no change \ mri will be helpful here to decide course Judd Castillo MD August 01, 2017 07:43
[2017-08-01] MEDS: CHLORHEXIDINE 0.12% (ORAL KIT) 15 ML CUP MT SCH ×2 (08:00→20:16)
--- NOTE | 2017-08-01 08:07 | HHI.CCPN ---
Subjective Remarks/Hospital Course This is a 66-year-old male. Date of admission 07/20/2017. Past medical history includes hypertension, hyperlipidemia, COPD with ongoing tobacco abuse, peptic ulcer disease and anxiety. He also has history of lumbar stenosis, degenerative joint disease of the back and cervical spine. He presents to [facility] with the following history. 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 According to his at bedside, patient is drug tested. Patient returned home from work on Sunday after his 30 day work schedule. Patient was changing the tire of a bike friend yesterday. Patient returned home in no acute distress. Today, patient was tired and was sleeping all day. Initially patient had similar symptoms at lunch. When the attempted to wake him up later this evening patient be was nonresponsive with a weak pulse. She attempted to use ammonia without response. At that time EMS was called and patient was transferred to [facility]. Patient was noted to be an acute change with a creatinine of 3.8. Baseline is normal. Potassium is 7.4 without EKG changes. Patient received bicarbonate, insulin/D50, calcium and Kayexalate in the ED. Repeat potassium 3 hours. Patient is making urine and appears concentrated. UA is pending. Patient leukocytosis 13,000. CPK was 5000. Lactic acid was 2.6. Urine drug screen revealed positive for opiates, amphetamines, benzodiazepines, THC and cocaine. Head CT is currently pending. Due to altered mental status patient was admitted after receiving 20 mg etomidate and 100 mg succinylcholine by ED physician. Patient also received 4 mg of midazolam and after which patient became hypotensive is currently receiving 3 L normal saline wide open. Head CT is currently pending. Patient received clindamycin along with piperacillin/ tazobactam in the ED. 07/21: Overnight the patient required to protamine infusion low-dose currently being weaned off. The patient continues on fentanyl and propofol infusion for ventilator synchrony. Patient's undergoing MRI evaluation results pending. The patient was noted to have significant elevation in creatinine kinase the patient is bolused 1 L IV fluids increase in normal saline 200 cc/hr. Lactic acid downtrending will continue to trend creatinine noted to be decreasing. 07/22: Currently afebrile. Off all vasopressors. We will switch to LR at 200 cc an hour. Recheck BMP this afternoon. Moving all 4 x-rays spontaneously right upper extremity less. Opens eyes but not following commands. Positive gag and corneal reflex. Subjective: 07/23: Currently on dexmedetomidine drip at 0.7 mg/kg/h. Minimal response to distinguish. Will hold at the present time and reassess neurological condition. EEG showed no epileptiform activity. Tolerating tube feeding. No bowel movement since admission. Currently afebrile. 07/24: Per nursing staff patient was off sedation over the night and he woke up and followed some simple commands, but due to agitation, hypertension and tachycardia patient was restarted on sedation. He is currently on Precedex at 1 , tolerating CPAP, sedated. T-max of 99. I/O 3029/1451. 07/25: No events over the night. This morning while attempting CPAP trial patient became rigid, unresponsive, with gaze deviation, tachypneic tachycardic and hypertensive, suggesting seizure activity. Patient was immediately given Ativan 2 mg 1 with resolution of episode. Neurology was contacted and plan for EEG and CT head as well as propofol infusion. No family present at bedside. T-max of 100.7 over the night. Urine output 2300 mL's over the last 24 hours. 07/26: EVD placed yesterday for declining mental status with hydrocephalus and severe cerebellar edema. this AM, extensor posturing. supratentorial ICPs controlled, but cerebellar edema persists. discussed with Dr. Castillo: csf could be consistent with encephalitis. d/w Dr. Barrow: will need posterior fossa decompression. 07/27: no improvements in mental status. s/p suboccipital crani yesterday. remains intermittently on cardene and levophed to maintain cpp. ICP controlled. brain biopsies pending. 07/28: Osmolality suitably concentrated. ICP well controlled. Maintaining head up position. On attempted CPAP trial patient has 25 second periods of apnea. Unstable neurological status we will not stress him with extended spontaneous breathing trials. 07/29: Requiring Cardene still to maintain systolic blood pressure less than 160. Markedly edematous and will need to start active diuresis. No change in neurologic function. Apnea episodes persist. 07/30: off cardene. still grossly volume overloaded. neuro exam remains poor. 07/31: no improvement in mental status. wbc slight uptrend. afebrile. awaiting MRI for prognostication and to re-evaluate edema. adequate diuresis yesterday. 08/01: encephalopathy persists. wbc uptrending but afebrile. unable to obtain MRI due to elevated ICP, cannot tolerate lying flat. would benefit from MRI when able. diuresing well. Objective Vital Signs Date Time Temp Pulse Resp B/P (MAP) Pulse Ox O2 Delivery O2 Flow Rate FiO2 08/01/17 07:32 100 40 08/01/17 06:00 76 08/01/17 04:00 99.5 20 138/65 (89) Intake and Output 08/01/17 08/01/17 08/01/17 07:59 15:59 23:59 Intake Total 1593 ml Output Total 2727 ml Balance -1134 ml Result Diagram: 08/01/17 0330 08/01/17 0330 Imaging Last 24 hours Impressions Chest X-Ray 07/24/17 0600 Signed Impressions: Service Date/Time: Monday, July 24, 2017 03:41 - CONCLUSION: Patchy diffuse interstitial prominence and pulmonary vascular prominence unchanged. Ankur Shields MD Last Impressions Chest X-Ray 07/23/17 0600 Signed Impressions: Service Date/Time: Sunday, July 23, 2017 04:10 - CONCLUSION: Lungs grossly clear. Tubes and catheter in good position. Ankur Shields MD Neck Magnetic Resonance Angiography 07/21/17 0000 Signed Impressions: Service Date/Time: Friday, July 21, 2017 08:40 - CONCLUSION: No acute neck arteriovascular abnormality is identified. There is no significant stenosis within either internal carotid artery. Lonnie Ross MD Head Magnetic Resonance Angiography 07/21/17 0000 Signed Impressions: Service Date/Time: Friday, July 21, 2017 08:40 - CONCLUSION: No acute intracranial vascular abnormality is identified. Lonnie Ross MD Brain MRI 07/21/17 0000 Signed Impressions: Service Date/Time: Friday, July 21, 2017 08:40 - CONCLUSION: Multifocal areas of restricted diffusion/recent ischemia within the centrum semiovale bilaterally, bilateral occipital lobes, bilateral basal ganglia, bilateral temporal lobes, and bilateral cerebellar hemispheres. Findings could be related to global anoxic event or less likely embolic phenomenon. Lonnie Ross MD Abdomen Ultrasound 07/21/17 0000 Signed Impressions: Service Date/Time: Friday, July 21, 2017 15:47 - CONCLUSION: Cholelithiasis. No gallbladder wall thickening or pericholecystic fluid. Victor Manuel Barros MD Head CT 07/20/17 2225 Signed Impressions: Service Date/Time: Friday, July 21, 2017 00:53 - CONCLUSION: Abnormal brain appearance. Recommend MRI for further evaluation Lonnie Lock MD Objective Remarks General - middle-aged gentleman, intubated, ill-appearing, unresponsive HEENT - pupils equal, dilated, reactive, sclerae anicteric, neck supple, no nuchal rigidity. CV - normal rate, regular rhythm. sinus. no JVD Chest - equal chest rise. full mechanical support. PRVC. peep 5. Decreased breath sounds both bases. Abdomen - soft, non-tender, non-distended, no guarding. Skin - no rashes, no cyanosis, multiple tattoos bilateral upper extremities and thorax Extremities - warm and well perfused, no edema, + peripheral pulses, no clubbing Neuro - intubated via tracheostomy, off sedation, unresponsive, pupils equal and reactive, extensor posturing. some questionable withdraw to pain in upper extremities today, but very weak. Apnea episodes on spontaneous breathing. A/P Assessment and Plan Assessment: 66yM with acute encephalopathy and severe cerebellar edema of unclear etiology. very critically ill with ongoing life-threatening malignant cerebral edema in the posterior fossa. s/p suboccipital crani for decompression 07/26 and brain biopsies. continue hyperosmolar therapy and supportive care. Unlikely to have a favorable outcome. very poor prognosis. remains critically ill. goals remain aggressive. 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 neurology: Dr. Castillo following neurosurgery: Dr. Barrow following. hyperosmolar therapy serial sodiums, osms Hold 3% nacl, osmolality 155. CT brain 07/21 There is patchy mild diminished attenuation in centrum semi-ovale bilaterally. There is mild heterogeneous diminished density in the genu region of internal capsules and globus pallidus bilaterally. There is vague diminished density in the cerebellar hemispheres bilaterally. There is no evidence of intracranial mass or hemorrhage. There is no abnormal extra-axial fluid accumulation or shift present. 07/21 MRI brain-Multifocal areas of restricted diffusion/recent ischemia within the centrum semiovale bilaterally, bilateral occipital lobes, bilateral basal ganglia, bilateral temporal lobes, and bilateral cerebellar hemispheres. Findings could be related to global anoxic event or less likely embolic phenomenon. 07/21 EEG revealed no epileptic activity 07/21-MRA brain/neck -no acute findings UDS + opiates, amphetamines, benzodiazepines, THC and cocaine CSF studies all negative. brain biopsies negative. EVD placed 07/25 by [facility]. CV: History of essential hypertension Hyperlipidemia Lactic acidosis -resolved Sinus bradycardia- secondary to elevated ICP Holding valsartan 320 mg p.o. daily due to hypotension/acute kidney injury Holding rosuvastatin 10 mg p.o. q. Sunday/Sunday/Sunday due to elevated LFTs. Resume when clinically indicated. amlodipine 5mg po BID lisinopril 10mg daily. TTE results reviewed, LV size normal, EF of 55%. Resp: Acute hypoxemic and hypercarbic respiratory failure Tobacco use disorder Continue [facility] Ventilator bundle Albuterol/ipratropium aerosols every 6 hours with albuterol aerosol every 2 hours as needed dyspnea budesonide 0.5/2 1 inhalation twice daily since on budesonide/formoterol 160/ 4.5 1 puff twice daily at home along with albuterol inhaler twice daily no weaning of mechanical ventilation until mental status and ICP improves wean fio2 for goal spo2 > 90% hob elevated Tracheostomy 07/28. GI: Elevated transaminases -slowly trending down Rhabdomyolysis -improving, urine output is adequate, CPK trending down Cholelithiasis CK levels-5000->18998->20K --> 5930 --> 3370 07/21 Liver ultrasound revealed cholelithiasis Hepatitis panel-negative Tube feeding with Neutra hep goal 45 cc an hour Lansoprazole for GI prophylaxis Docusate/senna 1 tablet twice daily for bowel regimen will need G tube. will consult GI. : Metabolic alkalosis Adler catheter has been placed for accurate I's and O's in a critically ill patient keep adler today. continue forced diuresis. diamox iv q8h x 3 doses. Endo: Sliding scale insulin with NovoLog with Accu-Cheks every 6 hours to maintain euglycemia/low regimen Hemoglobin A1c documented at 6.1 Renal: Acute kidney injury -resolved Rhabdomyolysis resolved. Acute intravascular Volume overload -persistent. lasix 40mg iv q12h Monitor urine output Accurate I's and O's Renal ultrasound revealed no hydronephrosis bilaterally 5/ Urine eosinophils negative. Avoid nephrotoxic drugs Heme: Normocytic anemia Monitor CBC daily. Follow trend hold SQH ID: Staph bacteremia Received piperacillin/tazobactam and clindamycin ED for possible aspiration Blood cultures 2, UA, sputum 07/21 all pending/no growth to date Strep pneumo, Legionella urine antigens-negative ID involved and following. on Rocephin for staph in 2/2 bottles blood cultures. FEN: Hypophosphatemia -resolved Electrolyte protocol MSK: History of multiple lumbar/cervical spine surgeries PT evaluate and treat Access 07/25: left SC TLC: will remove given rising wbc count. adler 07/25 EVD Prophylaxis -GI -lansoprazole -DVT -SCD/ Heparin SQ Overall impression: This gentleman remains critically ill with a pronounced neurologic injury. Osmolality is acceptably concentrated and we will hold hypertonic saline for now. Cerebral perfusion pressure is suitably high. ICP remain a concern. prognosis overall poor. Paulo Boswell MD August 01, 2017 08:07
[2017-08-01] MEDS ORDERED: ICU - SODIUM PHOSPHATE 30 MMOL/NS 250 ML IV PRN ×2 (08:30)
[2017-08-01] MEDS ORDERED: POTASSIUM CHLORIDE 25 MEQ EFFERVESCENT TAB PO PRN (08:30)
[2017-08-01] MEDS ORDERED: ICU - POTASSIUM CHLORIDE/AQUEOUS SOLN 40 MEQ/100 ML IVPB IV PRN (08:30)
[2017-08-01] MEDS ORDERED: ICU - POTASSIUM PHOSPHATE MONOBASIC 500 MG TAB PO PRN (08:30)
[2017-08-01] MEDS ORDERED: ICU - MAGNESIUM SULFATE 4 GM/NS 100 ML IV PRN ×2 (08:30)
[2017-08-01] MEDS ORDERED: ICU - D/C ICU ELECTROLYTE ORDERS PRN (08:30)
[2017-08-01] MEDS ORDERED: ICU - CALL ORDERING PHYSICIAN PRN (08:30)
[2017-08-01] MEDS ORDERED: ICU - MAGNESIUM OXIDE 400 MG TAB PO PRN (08:30)
[2017-08-01] MEDS ORDERED: ICU - POTASSIUM PHOSPHATE 30 MMOL/NS 250 ML IV PRN ×2 (08:30)
[2017-08-01] MEDS ORDERED: ICU - MAGNESIUM SULFATE 2 GM/NS 100 ML IV PRN ×2 (08:30)
[2017-08-01] MEDS: levETIRAcetam INJ 750 MG in SODIUM CHLORIDE 0.9% INJ 100 ML IV SCH ×2 (09:17→22:00)
[2017-08-01] MEDS: POLYETHYLENE GLYCOL 17 GM PKG PO SCH ×2 (09:17→20:17)
[2017-08-01] MEDS: LISINOPRIL 10 MG TAB PO SCH (09:17)
[2017-08-01] MEDS: amLODIPine BESYLATE 5 MG TAB PO SCH ×2 (09:17→20:17)
[2017-08-01] MEDS: DOCUSATE SODIUM 50 MG/SENNA 8.6 MG TAB PO SCH ×2 (09:17→20:18)
[2017-08-01] MEDS: LACTULOSE SYRUP 20 GM/30 ML CUP PO SCH (09:17)
[2017-08-01] MEDS: ARTIFICIAL TEARS OPTH SOLN 15 ML BTL EACH EYE SCH ×3 (09:17→18:00)
[2017-08-01] MEDS: FAMOTIDINE 20 MG TAB PO SCH ×2 (09:17→20:17)
[2017-08-01] MEDS: SODIUM CHLORIDE 0.9% FLUSH 10 ML FLUSH IV FLUSH SCH ×2 (09:17→20:17)
[2017-08-01] MEDS: LACTOBACILLUS ACIDOPHILUS TAB PO SCH ×3 (09:17→18:24)
[2017-08-01] MEDS: FUROSEMIDE 40 MG/4 ML VIAL IV PUSH SCH ×2 (09:17→18:24)
--- NOTE | 2017-08-01 09:19 | HHI.NSPN ---
History Chief Complaint: multifocal infarct. Interval History 66-year-old obese gentleman who was admitted to [facility] intensive medical unit after presenting to the emergency room 5 days ago found unresponsive at home by . He was intubated and has been on ventilator support since his admission. Workup initially with CT and MRI scan of the brain revealed multifocal areas of infarct involving the bilateral supratentorial hemispheres as well as cerebellar hemispheres consistent with either embolic strokes or anoxia or hypoxia. His toxicology screen was positive for multiple drugs and polysubstance abuse including cocaine, cannabinoids, barbiturates, and opioids. He had a change in his neurologic status with posturing noted today and MRI scan obtained revealed progression of the bilateral cerebellar hemispheres strokes with obstruction of the fourth ventricle and associated hydrocephalus development. Neurosurgery was consulted for the hydrocephalus by the radiation safety officer. 07/26/17: Pt sedated on Diprivan and Fentanyl drips. Not opening eyes. Pupils 3mm bilaterally NR bilaterally. Intubated. Ventriculostomy drain in place lowered to [address] Barrow with orders to increase to 5cmH20 in one hour. 07/30/17: Patient sedated with fentanyl and Diprivan drips. Not opening eyes. Trach in place. He is on CPAP. Ventriculostomy drain in place at 5 cmH20 draining clear CSF. 07/31/17: Pt sedated with Fentanyl and Diprivan. Opening eyes left more than right. Ventriculostomy drain in place at [id number]. ICP 15 draining clear CSF. 08/01/17: Pt on sedative drips Fentanyl and Diprivan. Pupils 4mm bilaterally reactive bilaterally. Ventriculostomy drain at [id number]. ICP 8 currently. Draining clear CSF. System Review Comments Not able to obtain given clinical condition. Exam Results Vital Signs Date Time Temp Pulse Resp B/P (MAP) Pulse Ox O2 Delivery O2 Flow Rate FiO2 08/01/17 08:00 40 08/01/17 08:00 86 08/01/17 08:00 99.7 20 149/68 (95) 97 Intake and Output 08/01/17 08/01/17 08/02/17 08:00 16:00 00:00 Intake Total 1593 ml Output Total 2727 ml Balance -1134 ml Physical Examination General: Pt sedated on Diprivan and Fentanyl drips. Eyes: Pupils 4mm bilaterally reactive bilaterally. Resp: CTA bilaterally. Heart: NSR no murmurs Abd: Soft diminished bs. Skin: No cyanosis or erythema. Bandage dry. Muscle: Pt has inward rotation and some extension of UEs to pain in upper chest. Neuro: Pt sedated on Diprivan and fentanyl drips. Does not open eyes. Pupils 4 mm and react down to 2 bilaterally Not following commands. Inward rotates shoulders with some extension of UEs to pain in chest. Lab, Micro, Other Results Last Impressions Chest X-Ray 07/31/17 06 Signed Impressions: Service Date/Time: Monday, July 31, 2017 05:14 - CONCLUSION: 1. Basilar airspace disease, left greater than right similar to July 29. Support apparatus unchanged. Ananda Messina MD Head CT 07/27/17 06 Signed Impressions: Service Date/Time: Thursday, July 27, 2017 13:39 - CONCLUSION: 1. Decrease in ventricular size since July 25. Extensive low attenuation and swelling in both occipital lobes and also in the periventricular region, basal ganglia and focally in the right occipital lobe. Differential diagnosis includes edema or evolving infarcts. There is mass effect on the brainstem and posterior fossa with effacement of the fourth ventricle. Ananda Messina MD Abdomen X-Ray 07/27/17 0000 Signed Impressions: Service Date/Time: Thursday, July 27, 2017 20:37 - CONCLUSION: NG tube coiled in the lower thoracic esophagus. Oumar Bray Jr., MD Head/Brain Mag Res Venography 07/25/17 0000 Signed Impressions: Service Date/Time: Tuesday, July 25, 2017 19:54 - CONCLUSION: Patent dural sinuses. Lonnie Munguia MD Brain MRI 07/25/17 0000 Signed Impressions: Service Date/Time: Tuesday, July 25, 2017 10:37 - CONCLUSION: Worsening brain appearance with developing hydrocephalus which is presumably related to increasing edema in the posterior fossa. See above discussion. Lonnie Lock MD Neck Magnetic Resonance Angiography 07/21/17 Signed Impressions: Service Date/Time: Friday, July 21, 2017 08:40 - CONCLUSION: No acute neck arteriovascular abnormality is identified. There is no significant stenosis within either internal carotid artery. Lonnie Ross MD Head Magnetic Resonance Angiography 07/21/17 0000 Signed Impressions: Service Date/Time: Friday, July 21, 2017 08:40 - CONCLUSION: No acute intracranial vascular abnormality is identified. Lonnie Ross MD Abdomen Ultrasound 07/21/17 0000 Signed Impressions: Service Date/Time: Friday, July 21, 2017 15:47 - CONCLUSION: Cholelithiasis. No gallbladder wall thickening or pericholecystic fluid. Victor Manuel Barros MD Laboratory Tests Test 08/01/17 03:30 White Blood Count 19.9 TH/MM3 Red Blood Count 3.50 MIL/MM3 Hemoglobin 10.8 GM/DL Hematocrit 32.8 % Mean Corpuscular Volume 93.7 FL Mean Corpuscular Hemoglobin 30.8 PG Mean Corpuscular Hemoglobin Concent 32.9 % Red Cell Distribution Width 14.0 % Platelet Count 446 TH/MM3 Mean Platelet Volume 7.6 FL Blood Urea Nitrogen 30 MG/DL Creatinine 0.71 MG/DL Random Glucose 99 MG/DL Calcium Level 7.6 MG/DL Sodium Level 150 MEQ/L Potassium Level 3.5 MEQ/L Chloride Level 113 MEQ/L Carbon Dioxide Level 31.3 MEQ/L Anion Gap 6 MEQ/L Estimat Glomerular Filtration Rate 111 ML/MIN Phosphorus Level 4.4 MG/DL Vancomycin Level Trough 18.4 MCG/ML Medical Decision Making Impression and Plan A: 66-year-old gentleman with multifocal infarcts involving both hemispheres supratentorially as well as bilateral cerebellar hemispheres with worsening edema and obstructive hydrocephalus. His neurologic examination is very poor. Discussed with over the phone and recommended an emergent ventriculostomy placement to treat the obstructive hydrocephalus. If there is noted improvement subsequently and the option of possible suboccipital craniectomy for decompression could be considered if the family chooses to continue with the aggressive management although this would be a heroic procedure. The at this point consents to ventriculostomy placement and this was witnessed by the nursing staff. Pt underwent a Bilateral suboccipital decompressive craniectomy; expensive dural bovine patch graft; left cerebellar hemisphere brain biopsy on 07/26/17. P: Continue with Ventriculostomy drain and ICP measurement Continue with critical care Continue with sedation. Shakir Carroll August 01, 2017 9:19 am
[2017-08-01] MEDS: cefTRIAXone INJ 2,000 MG in SODIUM CHLORIDE 0.9% INJ 100 ML IV SCH (14:00)
--- NOTE | 2017-08-01 15:17 | HHI.HCPN ---
Reason for visit a. To assist with evaluation and management of symptoms including: pain; encephalopathy; dyspnea b. To assist medical decision maker(s) with: better understanding of current medical conditions; weighing benefits/burdens of medical treatment options; making medical treatment decisions. . Subjective/Interval History Patient seen and examined in ICU. Also present Roxy Bray LCSW and nurse, Graciela. On mechanical vent to trach. Neurosurgery reports no improvement in neuro status, sedation continues to decrease, now on Fentanyl 100mcg and Propofol 20 (decreased from 30 on 07/31/17) . Nurse tells me Dr. Barrow does not plan for MRI yet. Clinical data review: * Tmax 100.3. HR 70-8. BP 132/66. * ICP 10-12; Ventriculostomy at 15cm H2O * WBC 19.9, hemoglobin 10.8, hematocrit 32.8, platelets 446. * Sodium 150 * BC in aerobic and anaerobic bottles + staph epidermidis, multidrug resistant. Repeat blood cultures being drawn at end of my visit. * No new imaging. * Left subclavian central line removed. . Family/friend interactions Spoke with at bedside, medical update provided. Questions answered. . Advance Directives Living Will: Copy in medical record Health Care Surrogate: Copy in medical record Durable Power of Field Worker: Completed, but not made available Advance Directive Specifics Date completed: Living will and healthcare surrogate designation were completed on 09/29/2016. . Health Care Surrogate(s): The healthcare surrogate is the patient's spouse--Coty Weaver . Documented care wishes: The patient's living will is the standard [place] living will. He has initialed only one condition to activate his wishes -- if he has "an end-stage condition." He would not want life prolonging procedures should be diagnosed with such condition. . Significant change in goals: FULL CODE. Goals remain aggressive. Objective Vital Signs Date Time Temp Pulse Resp B/P (MAP) Pulse Ox O2 Delivery O2 Flow Rate FiO2 08/01/17 12:00 40 08/01/17 12:00 83 08/01/17 12:00 99.9 83 26 132/66 (88) 97 08/01/17 11:08 97 40 08/01/17 10:00 82 08/01/17 08:00 40 08/01/17 08:00 86 08/01/17 08:00 99.7 71 20 149/68 (95) 97 08/01/17 07:32 100 40 08/01/17 06:00 76 08/01/17 04:52 96 40 08/01/17 04:00 40 08/01/17 04:00 99.5 72 20 138/65 (89) 99 08/01/17 04:00 72 08/01/17 02:42 99 40 08/01/17 02:00 66 08/01/17 00:00 99.1 61 20 139/67 (91) 97 08/01/17 00:00 62 08/01/17 00:00 40 07/31/17 23:29 100 40 07/31/17 22:00 58 07/31/17 20:00 40 07/31/17 20:00 99.3 96 21 154/74 (100) 96 07/31/17 20:00 96 07/31/17 19:28 100 40 07/31/17 18:00 80 07/31/17 16:00 66 07/31/17 16:00 99.1 66 22 144/67 (92) 97 07/31/17 16:00 40 Intake & Output 08/01/17 08/01/17 06:59 18:59 Intake Total 1800 ml Output Total 2727 ml Balance -927 ml IV Total 1174 ml Tube Feeding 626 ml Output Urine Total 2650 ml Drainage Total 77 ml # Bowel Movements 2 Physical Exam CONSTITUTIONAL/GENERAL: This is an adequately nourished patient, sedated, mechanically ventilated, in a surgical intensive care unit bed. Unresponsive. TUBES/LINES/DRAINS: Ventriculostomy, tracheostomy, NG tube, Left subclavian central line, Garner catheter, SCDs. HEAD: Ventriculostomy on right. SKIN: Multiple tattoos. No jaundice, rashes, or lesions. No wounds seen anteriorly. Skin temperature appropriate. Not diaphoretic. EYES: Eyes closed. ENT: NG tube, tracheostomy. CARDIOVASCULAR: Regular rate and rhythm without murmurs. RESPIRATORY/CHEST: Symmetric, unlabored respirations on vent. Decreased breath sounds bilaterally. GASTROINTESTINAL: Abdomen soft, non-tender, slightly distended. Bowel sounds present. GENITOURINARY: Without palpable bladder distension. Scrotal edema present. Garner catheter in place. MUSCULOSKELETAL: Extremities with edema. NEUROLOGICAL: Sedated. Extension to painful stimuli bilateral UE. PSYCHIATRIC: Unable to evaluate due to level of responsiveness. . Diagnostic Tests Laboratory Laboratory Tests Test 07/30/17 04:10 07/31/17 06:05 08/01/17 03:30 White Blood Count 9.4 TH/MM3 (4.0-11.0) 13.1 TH/MM3 (4.0-11.0) 19.9 TH/MM3 (4.0-11.0) Red Blood Count 2.95 MIL/MM3 (4.50-5.90) 2.82 MIL/MM3 (4.50-5.90) 3.50 MIL/MM3 (4.50-5.90) Hemoglobin 9.6 GM/DL (13.0-17.0) 8.9 GM/DL (13.0-17.0) 10.8 GM/DL (13.0-17.0) Hematocrit 27.9 % (39.0-51.0) 26.9 % (39.0-51.0) 32.8 % (39.0-51.0) Mean Corpuscular Volume 94.8 FL (80.0-100.0) 95.2 FL (80.0-100.0) 93.7 FL (80.0-100.0) Mean Corpuscular Hemoglobin 32.7 PG (27.0-34.0) 31.7 PG (27.0-34.0) 30.8 PG (27.0-34.0) Mean Corpuscular Hemoglobin Concent 34.5 % (32.0-36.0) 33.3 % (32.0-36.0) 32.9 % (32.0-36.0) Red Cell Distribution Width 14.1 % (11.6-17.2) 13.7 % (11.6-17.2) 14.0 % (11.6-17.2) Platelet Count 410 TH/MM3 (150-450) 387 TH/MM3 (150-450) 446 TH/MM3 (150-450) Mean Platelet Volume 7.4 FL (7.0-11.0) 7.5 FL (7.0-11.0) 7.6 FL (7.0-11.0) Neutrophils (%) (Auto) 77.6 % (16.0-70.0) Lymphocytes (%) (Auto) 12.0 % (9.0-44.0) Monocytes (%) (Auto) 10.4 % (0.0-8.0) Eosinophils (%) (Auto) 0.0 % (0.0-4.0) Basophils (%) (Auto) 0.0 % (0.0-2.0) Neutrophils # (Auto) 7.3 TH/MM3 (1.8-7.7) Lymphocytes # (Auto) 1.1 TH/MM3 (1.0-4.8) Monocytes # (Auto) 1.0 TH/MM3 (0-0.9) Eosinophils # (Auto) 0.0 TH/MM3 (0-0.4) Basophils # (Auto) 0.0 TH/MM3 (0-0.2) CBC Comment DIFF FINAL Differential Comment Blood Urea Nitrogen 29 MG/DL (7-18) 32 MG/DL (7-18) 30 MG/DL (7-18) Creatinine 0.84 MG/DL (0.60-1.30) 0.77 MG/DL (0.60-1.30) 0.71 MG/DL (0.60-1.30) Random Glucose 149 MG/DL (74-106) 95 MG/DL (74-106) 99 MG/DL (74-106) Calcium Level 7.5 MG/DL (8.5-10.1) 7.2 MG/DL (8.5-10.1) 7.6 MG/DL (8.5-10.1) Phosphorus Level 3.8 MG/DL (2.5-4.9) 4.4 MG/DL (2.5-4.9) Magnesium Level 2.7 MG/DL (1.5-2.5) Sodium Level 154 MEQ/L (136-145) 152 MEQ/L (136-145) 150 MEQ/L (136-145) Potassium Level 3.6 MEQ/L (3.5-5.1) 3.8 MEQ/L (3.5-5.1) 3.5 MEQ/L (3.5-5.1) Chloride Level 117 MEQ/L (98-107) 117 MEQ/L (98-107) 113 MEQ/L (98-107) Carbon Dioxide Level 30.1 MEQ/L (21.0-32.0) 30.8 MEQ/L (21.0-32.0) 31.3 MEQ/L (21.0-32.0) Anion Gap 7 MEQ/L (5-15) 4 MEQ/L (5-15) 6 MEQ/L (5-15) Estimat Glomerular Filtration Rate 92 ML/MIN (>89) 101 ML/MIN (>89) 111 ML/MIN (>89) Vancomycin Level Trough 6.3 MCG/ML (5.0-10.0) 18.4 MCG/ML (5.0-10.0) Total Protein 4.7 GM/DL (6.4-8.2) Protein Corrected Calcium 8.5 MG/DL (8.5-10.1) Result Diagram: 08/01/17 0330 08/01/17 033 Microbiology Microbiology Date/Time Source Procedure Growth Status 08/01/17 13:52 Blood Peripheral Aerobic Blood Culture Pending Received 08/01/17 13:52 Blood Peripheral Anaerobic Blood Culture Pending Received 08/01/17 13:45 Blood Peripheral Aerobic Blood Culture Pending Received 08/01/17 13:45 Blood Peripheral Anaerobic Blood Culture Pending Received Imaging Last Impressions Chest X-Ray 07/31/17 0600 Signed Impressions: Service Date/Time: Monday, July 31, 2017 05:14 - CONCLUSION: 1. Basilar airspace disease, left greater than right similar to July 29. Support apparatus unchanged. Ananda Messina MD Head CT 07/27/17 0600 Signed Impressions: Service Date/Time: Thursday, July 27, 2017 13:39 - CONCLUSION: 1. Decrease in ventricular size since July 25. Extensive low attenuation and swelling in both occipital lobes and also in the periventricular region, basal ganglia and focally in the right occipital lobe. Differential diagnosis includes edema or evolving infarcts. There is mass effect on the brainstem and posterior fossa with effacement of the fourth ventricle. Ananda Messina MD Abdomen X-Ray 07/27/17 0000 Signed Impressions: Service Date/Time: Thursday, July 27, 2017 20:37 - CONCLUSION: NG tube coiled in the lower thoracic esophagus. Oumar Bray Jr., MD Head/Brain Mag Res Venography 07/25/17 0000 Signed Impressions: Service Date/Time: Tuesday, July 25, 2017 19:54 - CONCLUSION: Patent dural sinuses. Lonnie Munguia MD Brain MRI 07/25/17 0000 Signed Impressions: Service Date/Time: Tuesday, July 25, 2017 10:37 - CONCLUSION: Worsening brain appearance with developing hydrocephalus which is presumably related to increasing edema in the posterior fossa. See above discussion. Lonnie Lock MD Neck Magnetic Resonance Angiography 07/21/17 0000 Signed Impressions: Service Date/Time: Friday, July 21, 2017 08:40 - CONCLUSION: No acute neck arteriovascular abnormality is identified. There is no significant stenosis within either internal carotid artery. Lonnie Ross MD Head Magnetic Resonance Angiography 07/21/17 0000 Signed Impressions: Service Date/Time: Friday, July 21, 2017 08:40 - CONCLUSION: No acute intracranial vascular abnormality is identified. Lonnie Ross MD Abdomen Ultrasound 07/21/17 0000 Signed Impressions: Service Date/Time: Friday, July 21, 2017 15:47 - CONCLUSION: Cholelithiasis. No gallbladder wall thickening or pericholecystic fluid. Victor Manuel Barros MD Procedures * Intubation/mechanical ventilation * Ventriculostomy drain placement * Central line placement * Decompressive suboccipiatl craniotomy 07/26/17 . . Assessment and Plan Disease Oriented Problem List: (1) Stroke Comment: Evolving with obstructive hydrocephalus and cerebral edema requiring emergent ventriculostomy placement on 07/25/17 . (2) Acute respiratory failure (3) Seizure Comment: EEG negative on 07/25/17 but silk screen repairer felt patient had seizure activity. Would not be surprising given level of cerebral edema. . (4) Failed back syndrome (5) COPD (chronic obstructive pulmonary disease) (6) Hyperkalemia (7) Acute kidney injury (8) Rhabdomyolysis (9) Tobacco abuse disorder (10) Chronic, continuous use of opioids (11) Depression (12) Hypertension (13) Hyperlipidemia Symptom Scale: (1) Pain 0-10 Scale: Unable to quantify Comment: Patient has long history of chronic pain from his back for which he has undergone multiple surgeries. Has been on chronic opioids for many years. Additional sources of pain might now also include recent craniotomy; cerebral edema; prisca hole placement; prolonged bedbound status; Garner catheter; vascular access catheters; restraints; orotracheal intubation; orogastric intubation. . (2) Encephalopathy 0-10 Scale: Unable to quantify Comment: Encephalopathy may be multifactorial. It appears he has had multiple strokes, cerebral edema, acute kidney injury, and electrolyte abnormalities all of which which are likely contributing to encephalopathy. . . (3) Dyspnea 0-10 Scale: Unable to quantify Comment: Currently managed with mechanical ventilation. . Pertinent Non-Medical Issues Psychosocial: Patient is well supported locally by his spouse. He has a biological son who lives in [place], [place], but who is here now. Spiritual: Judaism and spirituality have not played an important role in his life. Legal: Patient has a living will and designation of healthcare surrogate currently scanned into our electronic medical record. His is his surrogate. Ethical issues impacting care: Patient is currently incapacitated to make his own healthcare decisions. It is unclear if/when he will regain capacity to do so. . Important Contacts * Coty Weaver (spouse and health care surrogate) [phone] and * Blake Castillo (son) [phone] . Prognosis The patient's prognosis is now much worse with the obstructive hydrocephalus and cerebral edema requiring emergent ventriculostomy placement and then decompressive craniotomy. Should he survive the hospitalization, chances of meaningful recovery are much less. . Code Status: Full Code Plan * Decision Making: Patient is currently incapacitated to make his own healthcare decisions, unlikely that he will regain capacity. He has designated his spouse--Coty Weaver as healthcare surrogate. * FULL CODE * Goals of medical treatment: Goals currently remain aggressive, including FULL CODE. is verbalizing he may not survive this admission. She is not yet ready to consider transition transition. Will need medical team to continue to discuss prognosis, as she verbalizes not knowing what the "doctors are thinking. Symptoms (see symptom descriptions above): * Pain: Patient has multiple acute sources of pain as noted above, on top of his chronic back pain. He is currently sedated; pain appears adequately controlled. Current regimen appears to be effective. No further recommendations at this time. * Dyspnea: Patient is a long-term smoker and now unable to protect his airway. Dyspnea is currently being managed by mechanical ventilation. Was tolerating CPAP prior to his apparent seizure and subsequent craniotomy. Anticipate need for ongoing full vent support, and tracheostomy much more likely needed if family would wish aggressive goals. No further recommendations at this time. * Agitation: Agitation is probably from a multifactorial delirium. Patient had been managed with dexmedetomidine in MICU. Now sedated with propofol. Await to see if agitation increases or decreases should responsiveness return. * Encephalopathy multifactorial.: We will continue to address the fixable contributors such as metabolic issues and possible infection. Psychoactive drugs present in urine tox screen have probably all cleared by now. Main source of encephalopathy now the stroke and associated edema. Palliative care will continue to follow to assist with symptom management and to further clarify goals of medical treatment as the clinical course evolves. . . Attestation To help prompt me to consider important information that might be impacting today's encounter and assessment, information from prior notes written by myself or my colleagues may have been "brought forward" into today's note. My signature on this note, however, is an attestation that I personally performed the exam, history, and/or decision-making noted today, and, unless otherwise indicated, the interactions with patient, family, and staff as well as the review of records all occurred today. I also attest that the listed assessment and stated plan reflect my best clinical judgment today based on the combination of historical information, prior notes, and today's exam/ interactions. When time spent is documented, it refers only to time spent today by the signer, or if indicated, combined time spent today by collaborating physician/nurse practitioner. Lindsay Oro August 01, 2017 15:17
--- NOTE | 2017-08-01 15:53 | PD.CARD.PN ---
Subjective Subjective Remarks trached, sedated Objective Medications Current Medications Medications (Trade) Dose Ordered Sig/Claudia Route Start Time Stop Time Status Last Admin (NS Flush) 2 ml UNSCH PRN IV FLUSH 07/21/17 00:00 (NS Flush) 2 ml BID IV FLUSH 07/21/17 09:00 08/01/17 09:17 (Tears Naturale Opth Soln) 1 drop TID EACH EYE 07/21/17 09:00 08/01/17 13:00 (Zofran Inj) 4 mg Q6H PRN IV PUSH 07/21/17 00:00 (Albuterol Neb) 2.5 mg Q2HR NEB PRN INH 07/21/17 00:00 07/30/17 08:56 [place] [place] [facility] [place] 1 Q361D XX 07/21/17 00:00 07/21/17 00:00 (Chlorhexidine 2% Cloth) Taper DAILY@04 TOP 07/21/17 04:00 07/17/18 03:59 07/25/17 04:00 (Chlorhexidine 2% Cloth) 3 pack UNSCH PRN TOP 07/21/17 00:00 (Dilia-Colace) 1 tab BID PO 07/21/17 09:00 08/01/17 09:17 (Milk Of Magnesia Liq) 30 ml Q12H PRN PO 07/21/17 00:00 (Senokot) 17.2 mg Q12H PRN PO 07/21/17 00:00 (Dulcolax Supp) 10 mg DAILY PRN RECTAL 07/21/17 00:00 (Lactulose Liq) 30 ml DAILY PRN PO 07/21/17 00:00 (Peridex 0.12% Liq) 15 ml BID@08,20 MT 07/21/17 08:00 08/01/17 08:00 (D50w (Vial) Inj) 50 ml UNSCH PRN IV PUSH 07/21/17 00:00 (Glucagon Inj) 1 mg UNSCH PRN OTHER 07/21/17 00:00 (NovoLOG SUPPLEMENTAL SCALE) 1 Q6HR SQ 07/21/17 00:00 07/30/17 17:49 (Pulmicort Respule Neb) 0.5 mg Q12HR NEB NEB 07/21/17 08:00 08/01/17 07:36 (Brethine Inj) 1 mg UNSCH PRN SQ 07/21/17 00:30 (Lactulose Liq) 30 ml DAILY PO 07/22/17 09:00 08/01/17 09:17 (Apresoline Inj) 10 mg Q1H PRN IV PUSH 07/22/17 09:45 07/24/17 19:51 (Nitroglycerin 2% Oint) 2 inch Q6H PRN TOPICAL 07/22/17 09:45 (Miralax) 17 gm BID PO 07/23/17 21:00 08/01/17 09:17 Levetriacetam 750 mg/Sodium Chloride 107.5 ml @ 420 mls/hr Q12H IV 07/25/17 10:00 08/01/17 09:17 (Pepcid) 20 mg Q12HR PO 07/25/17 21:00 08/01/17 09:17 (Brethine Inj) 1 mg UNSCH PRN SQ 07/26/17 09:45 Propofol 100 ml @ 3.102 mls/ hr TITRATE PRN IV 07/26/17 11:00 08/01/17 06:07 Fentanyl Citrate 250 ml @ 5 mls/hr TITRATE PRN IV 07/26/17 11:00 08/01/17 06:07 (Lactinex) 1 tab TID PO 07/28/17 18:00 08/01/17 13:00 (Norvasc) 5 mg BID PO 07/29/17 09:00 08/01/17 09:17 (Lasix Inj) 40 mg BID@,18 IV PUSH 07/29/17 09:00 08/01/17 09:17 (Prinivil) 10 mg DAILY PO 07/29/17 09:00 08/01/17 09:17 (Apresoline) 50 mg Q8H PRN PO 07/30/17 09:15 Pharmacy Profile Note 0 ml @ 0 mls/hr UNSCH OTHER 07/30/17 13:00 Ceftriaxone Sodium 2000 mg/ Sodium Chloride 100 ml @ 200 mls/hr Q24H IV 07/30/17 14:00 07/31/17 14:00 Vancomycin HCl 1750 mg/Sodium Chloride 517.5 ml @ 250 mls/hr Q12H IV 07/30/17 16:00 08/01/17 04:00 (Apresoline) 100 mg Q8H PO 07/30/17 18:00 08/01/17 09:18 [place] [place] [facility] [place] D/C ICU ELECTROLYTE ORDERS... UNSCH PRN .XX 08/01/17 08:30 ([facility] [place] [facility] ICU - CALL ORDERING PHYSIC... UNSCH PRN .XX 08/01/17 08:30 Potassium Chloride 100 ml @ 25 mls/hr UNSCH PRN IV 08/01/17 08:30 (K-Lyte Cl Eff) 50 meq UNSCH PRN PO 08/01/17 08:30 Potassium Chloride 100 ml @ 50 mls/hr UNSCH PRN IV 08/01/17 08:30 Magnesium Sulfate 4 gm/Sodium Chloride 108 ml @ 54 mls/hr UNSCH PRN IV 08/01/17 08:30 Magnesium Sulfate 2 gm/Sodium Chloride 104 ml @ 52 mls/hr UNSCH PRN IV 08/01/17 08:30 (Mag-Ox) 800 mg UNSCH PRN PO 08/01/17 08:30 Sodium Phosphate 30 mmol/Sodium Chloride 260 ml @ 43.333 mls/ hr UNSCH PRN IV 08/01/17 08:30 (K-Phos) 2,000 mg UNSCH PRN PO 08/01/17 08:30 Potassium Phosphate 30 mmol/ Sodium Chloride 260 ml @ 43.333 mls/ hr UNSCH PRN IV 08/01/17 08:30 [place] [place] [facility] [place] Info) SPECIFIC LAB TO BE DRAWN:VANCOMYCIN TROUGH DATE TO... ONCE ONCE .XX 08/03/17 03:45 08/03/17 03:46 (Diamox Inj) 500 mg Q8H IV PUSH 08/01/17 10:30 08/02/17 02:31 08/01/17 11:31 Vital Signs / I&O Vital Signs Date Time Temp Pulse Resp B/P (MAP) Pulse Ox O2 Delivery O2 Flow Rate FiO2 08/01/17 12:00 40 08/01/17 12:00 83 08/01/17 12:00 99.9 83 26 132/66 (88) 97 08/01/17 11:08 97 40 08/01/17 10:00 82 08/01/17 08:00 40 08/01/17 08:00 86 08/01/17 08:00 99.7 71 20 149/68 (95) 97 08/01/17 07:32 100 40 08/01/17 06:00 76 08/01/17 04:52 96 40 08/01/17 04:00 40 08/01/17 04:00 99.5 72 20 138/65 (89) 99 08/01/17 04:00 72 08/01/17 02:42 99 40 08/01/17 02:00 66 08/01/17 00:00 99.1 61 20 139/67 (91) 97 08/01/17 00:00 62 08/01/17 00:00 40 07/31/17 23:29 100 40 07/31/17 22:00 58 07/31/17 20:00 40 07/31/17 20:00 99.3 96 21 154/74 (100) 96 07/31/17 20:00 96 07/31/17 19:28 100 40 07/31/17 18:00 80 07/31/17 16:00 66 07/31/17 16:00 99.1 66 22 144/67 (92) 97 07/31/17 16:00 40 I/O 07/31/17 07/31/17 07/31/17 08/01/17 08/01/17 08/01/17 07:00 15:00 23:00 07:00 15:00 23:00 Intake Total 517.5 ml 1063.5 ml 987 ml 1593 ml Output Total 2532 ml 2300 ml 2727 ml Balance 517.5 ml -1468.5 ml -1313 ml -1134 ml IV Total 517.5 ml 307.5 ml 207 ml 967 ml Tube Feeding 756 ml 780 ml 626 ml Output Urine Total 2500 ml 2300 ml 2650 ml Drainage Total 32 ml 77 ml # Bowel Movements 0 2 Physical Exam GENERAL: SKIN: Warm and dry. HEAD: Normocephalic. EYES: No scleral icterus. No injection or drainage. NECK: Supple, trachea midline. No JVD or lymphadenopathy. CARDIOVASCULAR: Regular rate and rhythm without murmurs, gallops, or rubs. RESPIRATORY: Breath sounds equal bilaterally. No accessory muscle use. GASTROINTESTINAL: Abdomen soft, non-tender, nondistended. MUSCULOSKELETAL: No cyanosis, or edema. BACK: Nontender without obvious deformity. No CVA tenderness. Laboratory Laboratory Tests Test 08/01/17 03:30 White Blood Count 19.9 TH/MM3 Red Blood Count 3.50 MIL/MM3 Hemoglobin 10.8 GM/DL Hematocrit 32.8 % Mean Corpuscular Volume 93.7 FL Mean Corpuscular Hemoglobin 30.8 PG Mean Corpuscular Hemoglobin Concent 32.9 % Red Cell Distribution Width 14.0 % Platelet Count 446 TH/MM3 Mean Platelet Volume 7.6 FL Blood Urea Nitrogen 30 MG/DL Creatinine 0.71 MG/DL Random Glucose 99 MG/DL Calcium Level 7.6 MG/DL Sodium Level 150 MEQ/L Potassium Level 3.5 MEQ/L Chloride Level 113 MEQ/L Carbon Dioxide Level 31.3 MEQ/L Anion Gap 6 MEQ/L Estimat Glomerular Filtration Rate 111 ML/MIN Phosphorus Level 4.4 MG/DL Vancomycin Level Trough 18.4 MCG/ML Assessment and Plan Problem List: (1) Toxic metabolic encephalopathy ICD Codes: G92 - Toxic encephalopathy (2) Tetrahydrocannabinol (THC) use disorder, mild, abuse ICD Codes: F12.10 - Cannabis abuse, uncomplicated (3) Encephalopathy ICD Codes: G93.40 - Encephalopathy, unspecified (4) Stroke ICD Codes: I63.9 - Cerebral infarction, unspecified (5) Chronic, continuous use of opioids ICD Codes: F11.90 - Opioid use, unspecified, uncomplicated (6) Cocaine use ICD Codes: F14.90 - Cocaine use, unspecified, uncomplicated Assessment and Plan 1.) I am not sure if he is stable enough to undergo head and neck manipulation to undergo swapnil; he is intubated so i cant assess his ability to swallow; will consider swapnil if risk benefit ratio favors it, he is cleared by neurology and neurosurgery for head and neck manipulation and if findings may plant changer 2.) D/w Dr Epperson 07/28/17; agrees that swapnil will not change short term management and put patient at risk of neurologic injury from neck manipulation during swapnil, d/w nurse at bedside as well 3.) Will d/w ID and NS risks/benefits of swapnil; d/w at bedside 07/31/17 Navid Corrales MD August 01, 2017 15:53
--- NOTE | 2017-08-01 17:47 | HHI.IDPN ---
Subjective Subjective Remarks low grade fever up to 99.9 sp line removal today + secretions (nasal) On vent+ breathing over + posturing Antibiotics CFTX Allergies: Coded Allergies: No Known Allergies (Verified Allergy, Unknown, 07/20/17) Objective . Vital Signs Date Time Temp Pulse Resp B/P (MAP) Pulse Ox O2 Delivery O2 Flow Rate FiO2 08/01/17 16:00 40 08/01/17 16:00 82 08/01/17 16:00 99.9 82 23 118/66 (83) 96 08/01/17 14:00 67 08/01/17 12:00 40 08/01/17 12:00 83 08/01/17 12:00 99.9 83 26 132/66 (88) 97 08/01/17 11:08 97 40 08/01/17 10:00 82 08/01/17 08:00 40 08/01/17 08:00 86 08/01/17 08:00 99.7 71 20 149/68 (95) 97 08/01/17 07:32 100 40 08/01/17 06:00 76 08/01/17 04:52 96 40 08/01/17 04:00 40 08/01/17 04:00 99.5 72 20 138/65 (89) 99 08/01/17 04:00 72 08/01/17 02:42 99 40 08/01/17 02:00 66 08/01/17 00:00 99.1 61 20 139/67 (91) 97 08/01/17 00:00 62 08/01/17 00:00 40 07/31/17 23:29 100 40 07/31/17 22:00 58 07/31/17 20:00 40 07/31/17 20:00 99.3 96 21 154/74 (100) 96 07/31/17 20:00 96 07/31/17 19:28 100 40 07/31/17 18:00 80 . Laboratory Tests Test 07/31/17 06:05 08/01/17 03:30 White Blood Count 13.1 TH/MM3 19.9 TH/MM3 Red Blood Count 2.82 MIL/MM3 3.50 MIL/MM3 Hemoglobin 8.9 GM/DL 10.8 GM/DL Hematocrit 26.9 % 32.8 % Mean Corpuscular Volume 95.2 FL 93.7 FL Mean Corpuscular Hemoglobin 31.7 PG 30.8 PG Mean Corpuscular Hemoglobin Concent 33.3 % 32.9 % Red Cell Distribution Width 13.7 % 14.0 % Platelet Count 387 TH/MM3 446 TH/MM3 Mean Platelet Volume 7.5 FL 7.6 FL Laboratory Tests Test 07/31/17 06:05 08/01/17 03:30 Blood Urea Nitrogen 32 MG/DL 30 MG/DL Creatinine 0.77 MG/DL 0.71 MG/DL Random Glucose 95 MG/DL 99 MG/DL Total Protein 4.7 GM/DL Calcium Level 7.2 MG/DL 7.6 MG/DL Sodium Level 152 MEQ/L 150 MEQ/L Potassium Level 3.8 MEQ/L 3.5 MEQ/L Chloride Level 117 MEQ/L 113 MEQ/L Carbon Dioxide Level 30.8 MEQ/L 31.3 MEQ/L Anion Gap 4 MEQ/L 6 MEQ/L Estimat Glomerular Filtration Rate 101 ML/MIN 111 ML/MIN Protein Corrected Calcium 8.5 MG/DL Phosphorus Level 4.4 MG/DL Microbiology Date/Time Source Procedure Growth Status 08/01/17 13:52 Blood Peripheral Aerobic Blood Culture Pending Received 08/01/17 13:52 Blood Peripheral Anaerobic Blood Culture Pending Received 08/01/17 13:45 Blood Peripheral Aerobic Blood Culture Pending Received 08/01/17 13:45 Blood Peripheral Anaerobic Blood Culture Pending Received Imaging Last Impressions Chest X-Ray 07/31/17 0600 Signed Impressions: Service Date/Time: Monday, July 31, 2017 05:14 - CONCLUSION: 1. Basilar airspace disease, left greater than right similar to July 29. Support apparatus unchanged. Ananda Messina MD Head CT 07/27/17 0600 Signed Impressions: Service Date/Time: Thursday, July 27, 2017 13:39 - CONCLUSION: 1. Decrease in ventricular size since July 25. Extensive low attenuation and swelling in both occipital lobes and also in the periventricular region, basal ganglia and focally in the right occipital lobe. Differential diagnosis includes edema or evolving infarcts. There is mass effect on the brainstem and posterior fossa with effacement of the fourth ventricle. Ananda Messina MD Abdomen X-Ray 07/27/17 0000 Signed Impressions: Service Date/Time: Thursday, July 27, 2017 20:37 - CONCLUSION: NG tube coiled in the lower thoracic esophagus. Oumar Bray Jr., MD Head/Brain Mag Res Venography 07/25/17 Signed Impressions: Service Date/Time: Tuesday, July 25, 2017 19:54 - CONCLUSION: Patent dural sinuses. Lonnie Munguia MD Brain MRI 07/25/17 Signed Impressions: Service Date/Time: Tuesday, July 25, 2017 10:37 - CONCLUSION: Worsening brain appearance with developing hydrocephalus which is presumably related to increasing edema in the posterior fossa. See above discussion. Lonnie Lock MD Neck Magnetic Resonance Angiography 07/21/17 Signed Impressions: Service Date/Time: Friday, July 21, 2017 08:40 - CONCLUSION: No acute neck arteriovascular abnormality is identified. There is no significant stenosis within either internal carotid artery. Lonnie Ross MD Head Magnetic Resonance Angiography 07/21/17 Signed Impressions: Service Date/Time: Friday, July 21, 2017 08:40 - CONCLUSION: No acute intracranial vascular abnormality is identified. Lonnie Ross MD Abdomen Ultrasound 07/21/17 Signed Impressions: Service Date/Time: Friday, July 21, 2017 15:47 - CONCLUSION: Cholelithiasis. No gallbladder wall thickening or pericholecystic fluid. Victor Manuel Barros MD Physical Exam CONSTITUTIONAL/GENERAL: This is an obese ederly patient, in no apparent distress. On vent TUBES/LINES/DRAINS: SKIN: No jaundice, rashes, or lesions. Skin temperature appropriate. Not diaphoretic. HEAD: Ventric in place R parietal area with clear CSF EYES: Pupils equal and round and reactive. Extraocular motions intact. No scleral icterus. No injection or drainage. Fundi not examined. ENT: Hearing not tested Nose without bleeding or purulent drainage. Throat without visible erythema, exudates, masses, or lesions. Orally intubated NECK: Trachea midline. Supple, nontender. No palpable thyroid enlargement or nodularity. CARDIOVASCULAR: Regular rate and rhythm without murmurs, gallops, or rubs. No JVD. Peripheral pulses symmetric. RESPIRATORY/CHEST: Symmetric, unlabored respirations. Clear to auscultation. Breath sounds equal bilaterally. No wheezes, rales, or rhonchi. GASTROINTESTINAL: Abdomen soft, non-tender, nondistended. No hepato-splenomegaly , or palpable masses. GENITOURINARY: Without palpable bladder distension. Garner catheter in place with clear yellow urine. + scrotum edema MUSCULOSKELETAL: Extremities without clubbing, cyanosis, remains quite edematous. No joint tenderness or effusion noted. No calf tenderness. No mottling or clubbing. NEUROLOGICAL: Unresponsive PSYCHIATRIC: Unable to assess Assessment & Plan Remarks ASbnormal CSF - no r/o meningoencephalits - probably combination of embolic strokes and anoxia t - Acute VDRF ARF 2/2 rhabdo: resolved New fever - resolved Likely PNA: sputum purulent - clx with nl resp olga lidia HIgh grade Srtaph epi bacteremia Leukocytosis - can be from steroids monitor repeat blood clx, cont vanco CFTX for PNA AKILAH when OK with ruling technician chk stool for C.diff if cont ot have diarrhea probiotics fu CXR dw Reva Yates MD August 01, 2017 17:47
[2017-08-01] MEDS ORDERED: SODIUM CHLOR 0.9% 250 ML INJ 250 ML IV ONE (23:45)
[2017-08-02] VITALS (18 sets, daily range): BP systolic 87–157; BP diastolic 50–85; PULSE 65–97; RESP 20–30; TEMP 98.6–100; O2SAT 96–100
[2017-08-02] MEDS: PROPOFOL 1000 MG/100 ML INJ 100 ML IV PRN ×2 (01:14→06:43)
[2017-08-02] MEDS: hydrALAZINE HCL 50 MG TAB PO SCH ×3 (02:00→17:01)
[2017-08-02] MEDS: VANCOMYCIN INJ 1,750 MG in SODIUM CHLORID 0.9% 500 ML INJ 500 ML IV SCH ×2 (03:06→15:50)
[2017-08-02] MEDS: CHLORHEXIDINE GLUCONATE 2 % 1 PACK (2 CLOTHS) TOP SCH (03:07)
--- NOTE | 2017-08-02 05:16 | RADRPT ---
EXAM DATE/TIME: 08/02/2017 04:30 [place] COMPARISON: CHEST SINGLE AP, July 31, 2017, 5:14. INDICATIONS : Short of breath. MEDICAL HISTORY : Hypertension. Diabetes mellitus type II. SURGICAL HISTORY : Colon resection. Fusion, cervical. ENCOUNTER: Subsequent ACUITY: 1 week PAIN SCORE: Non-responsive. LOCATION: Bilateral chest FINDINGS: Tracheostomy tube and nasogastric tube. Bibasilar consolidations more pronounced on the left than the right. Stable from the prior study. Heart is normal in size. Tiny left effusion. CONCLUSION: Unchanged small left effusion with bibasilar infiltrates more pronounced on the left. Oumar Bray Jr., MD on August 02, 2017 at 5:12 Board Certified Radiologist. This report was verified electronically.
[2017-08-02] MEDS: INSULIN ASPART SUPPLEMENTAL SCALE SQ SCH ×4 (06:00→18:00)
[2017-08-02 06:14] LABS: HEMATOCRIT 29.8 % (39.0-51.0); HEMOGLOBIN 9.8 GM/DL (13.0-17.0); MEAN CELL VOLUME 94.9 FL (80.0-100.0); MEAN CORPUSCULAR HEMOGLOBIN 31.1 PG (27.0-34.0); MEAN CORPUSCULAR HGB CONC 32.7 % (32.0-36.0); MEAN PLATELET VOLUME 7.7 FL (7.0-11.0); PLATELET COUNT 311 TH/MM3 (150-450); RED BLOOD COUNT 3.14 MIL/MM3 (4.50-5.90); RED CELL DISTRIBUTION WIDTH 14.1 % (11.6-17.2); WHITE BLOOD COUNT 19.9 TH/MM3 (4.0-11.0)
[2017-08-02 06:42] LABS: BICARBONATE 28.4 MEQ/L (21.0-32.0); CALCIUM 7.7 MG/DL (8.5-10.1); CREATININE 0.72 MG/DL (0.60-1.30)
[2017-08-02] MEDS: CHLORHEXIDINE 0.12% (ORAL KIT) 15 ML CUP MT SCH ×2 (08:02→20:00)
[2017-08-02] MEDS: SODIUM CHLORIDE 0.9% FLUSH 10 ML FLUSH IV FLUSH SCH ×2 (08:02→21:00)
[2017-08-02] MEDS: ARTIFICIAL TEARS OPTH SOLN 15 ML BTL EACH EYE SCH ×3 (08:03→17:01)
[2017-08-02] MEDS: LACTOBACILLUS ACIDOPHILUS TAB PO SCH ×3 (08:03→17:00)
[2017-08-02] MEDS: DOCUSATE SODIUM 50 MG/SENNA 8.6 MG TAB PO SCH ×2 (08:03→21:00)
[2017-08-02] MEDS: POLYETHYLENE GLYCOL 17 GM PKG PO SCH ×2 (08:03→21:00)
[2017-08-02] MEDS: FUROSEMIDE 40 MG/4 ML VIAL IV PUSH SCH ×2 (08:03→17:01)
[2017-08-02] MEDS: FAMOTIDINE 20 MG TAB PO SCH ×2 (08:03→21:00)
[2017-08-02] MEDS: LACTULOSE SYRUP 20 GM/30 ML CUP PO SCH (08:04)
[2017-08-02] MEDS: RESP: BUDESONIDE 0.5 MG/2 ML NEB NEB SCH ×2 (08:08→21:14)
[2017-08-02] MEDS: RESP: ALBUTEROL 2.5 MG/3 ML NEB (PRN) INH (08:08)
[2017-08-02] MEDS: levETIRAcetam INJ 750 MG in SODIUM CHLORIDE 0.9% INJ 100 ML IV SCH ×2 (09:26→22:06)
[2017-08-02] MEDS: amLODIPine BESYLATE 5 MG TAB PO SCH ×2 (09:28→21:00)
[2017-08-02] MEDS: LISINOPRIL 10 MG TAB PO SCH (09:29)
--- NOTE | 2017-08-02 09:56 | HHI.NSPN ---
(Shakir Carroll) History Chief Complaint: multifocal infarct. (Shakir Carroll) Interval History 66-year-old obese gentleman who was admitted to [facility] intensive medical unit after presenting to the emergency room 5 days ago found unresponsive at home by . He was intubated and has been on ventilator support since his admission. Workup initially with CT and MRI scan of the brain revealed multifocal areas of infarct involving the bilateral supratentorial hemispheres as well as cerebellar hemispheres consistent with either embolic strokes or anoxia or hypoxia. His toxicology screen was positive for multiple drugs and polysubstance abuse including cocaine, cannabinoids, barbiturates, and opioids. He had a change in his neurologic status with posturing noted today and MRI scan obtained revealed progression of the bilateral cerebellar hemispheres strokes with obstruction of the fourth ventricle and associated hydrocephalus development. Neurosurgery was consulted for the hydrocephalus by the sap security architect. 07/26/17: Pt sedated on Diprivan and Fentanyl drips. Not opening eyes. Pupils 3mm bilaterally NR bilaterally. Intubated. Ventriculostomy drain in place lowered to [address] Barrow with orders to increase to 5cmH20 in one hour. 07/30/17: Patient sedated with fentanyl and Diprivan drips. Not opening eyes. Trach in place. He is on CPAP. Ventriculostomy drain in place at 5 cmH20 draining clear CSF. 07/31/17: Pt sedated with Fentanyl and Diprivan. Opening eyes left more than right. Ventriculostomy drain in place at [id number]. ICP 15 draining clear CSF. 08/01/17: Pt on sedative drips Fentanyl and Diprivan. Pupils 4mm bilaterally reactive bilaterally. Ventriculostomy drain at [id number]. ICP 8 currently. Draining clear CSF. 08/02/17: Pt on Fentanyl and Diprivan drip. He opens eyes to deep pain. Pupils 3mm bilaterally reactive bilaterally. Ventric in place at 15cm H20, draining Clear CSF. (Shakir Carroll) System Review Comments Not able to obtain given clinical condition. (Shakir Carroll) Exam Results Vital Signs Date Time Temp Pulse Resp B/P (MAP) Pulse Ox O2 Delivery O2 Flow Rate FiO2 08/02/17 08:14 35 08/02/17 08:14 99 08/02/17 08:00 98.6 74 22 115/55 (75) Intake and Output 08/02/17 08/02/17 08/03/17 08:00 16:00 00:00 Intake Total 1355 ml Output Total 2084 ml Balance -729 ml (Shakir Carroll) Physical Examination General: Pt sedated on Diprivan and Fentanyl drips. Eyes: Pupils 3mm bilaterally reactive bilaterally. Resp: CTA bilaterally. Trach in place on CPAP. Heart: NSR no murmurs Abd: Soft diminished bs. Skin: No cyanosis or erythema. Incision clean with meli in place. SCDs in place. Muscle: Pt has move of a localization today to pain in upper chest. Neuro: Pt sedated on Diprivan and fentanyl drips. Opening eyes some to pain. Pupils 3mm and reactive bilaterally. Not following commands. Appears to try to localize with UEs to pain right more than left. Ventriculostomy drain in place at [id number] draining clear CSF. (Shakir Carroll) Lab, Micro, Other Results Last Impressions Chest X-Ray 08/02/17 0600 Signed Impressions: Service Date/Time: July 04:30 - CONCLUSION: Unchanged small left effusion with bibasilar infiltrates more pronounced on the left. Oumar Bray Jr., MD Head CT 07/27/17 0600 Signed Impressions: Service Date/Time: Thursday, July 27, 2017 13:39 - CONCLUSION: 1. Decrease in ventricular size since July 25. Extensive low attenuation and swelling in both occipital lobes and also in the periventricular region, basal ganglia and focally in the right occipital lobe. Differential diagnosis includes edema or evolving infarcts. There is mass effect on the brainstem and posterior fossa with effacement of the fourth ventricle. Ananda Messina MD Abdomen X-Ray 07/27/17 0000 Signed Impressions: Service Date/Time: Thursday, July 27, 2017 20:37 - CONCLUSION: NG tube coiled in the lower thoracic esophagus. Oumar Bray Jr., MD Head/Brain Mag Res Venography 07/25/17 0000 Signed Impressions: Service Date/Time: Tuesday, July 25, 2017 19:54 - CONCLUSION: Patent dural sinuses. Lonnie Munguia MD Brain MRI 07/25/17 0000 Signed Impressions: Service Date/Time: Tuesday, July 25, 2017 10:37 - CONCLUSION: Worsening brain appearance with developing hydrocephalus which is presumably related to increasing edema in the posterior fossa. See above discussion. Lonnie Lock MD Neck Magnetic Resonance Angiography 07/21/17 0000 Signed Impressions: Service Date/Time: Friday, July 21, 2017 08:40 - CONCLUSION: No acute neck arteriovascular abnormality is identified. There is no significant stenosis within either internal carotid artery. Lonnie Ross MD Head Magnetic Resonance Angiography 07/21/17 0000 Signed Impressions: Service Date/Time: Friday, July 21, 2017 08:40 - CONCLUSION: No acute intracranial vascular abnormality is identified. Lonnie Ross MD Abdomen Ultrasound 07/21/17 0000 Signed Impressions: Service Date/Time: Friday, July 21, 2017 15:47 - CONCLUSION: Cholelithiasis. No gallbladder wall thickening or pericholecystic fluid. Victor Manuel Barros MD Laboratory Tests Test 08/02/17 05:45 White Blood Count 19.9 TH/MM3 Red Blood Count 3.14 MIL/MM3 Hemoglobin 9.8 GM/DL Hematocrit 29.8 % Mean Corpuscular Volume 94.9 FL Mean Corpuscular Hemoglobin 31.1 PG Mean Corpuscular Hemoglobin Concent 32.7 % Red Cell Distribution Width 14.1 % Platelet Count 311 TH/MM3 Mean Platelet Volume 7.7 FL Blood Urea Nitrogen 26 MG/DL Creatinine 0.72 MG/DL Random Glucose 124 MG/DL Calcium Level 7.7 MG/DL Sodium Level 148 MEQ/L Potassium Level 3.6 MEQ/L Chloride Level 113 MEQ/L Carbon Dioxide Level 28.4 MEQ/L Anion Gap 7 MEQ/L Estimat Glomerular Filtration Rate 110 ML/MIN (Shakir Carroll) Medical Decision Making Impression and Plan A: 66-year-old gentleman with multifocal infarcts involving both hemispheres supratentorially as well as bilateral cerebellar hemispheres with worsening edema and obstructive hydrocephalus. His neurologic examination is very poor. Discussed with over the phone and recommended an emergent ventriculostomy placement to treat the obstructive hydrocephalus. If there is noted improvement subsequently and the option of possible suboccipital craniectomy for decompression could be considered if the family chooses to continue with the aggressive management although this would be a heroic procedure. The at this point consents to ventriculostomy placement and this was witnessed by the nursing staff. Pt underwent a Bilateral suboccipital decompressive craniectomy; expensive dural bovine patch graft; left cerebellar hemisphere brain biopsy on 07/26/17. P: Continue with challenging Ventriculostomy drain and ICP measurement Continue with critical care, weaning vent on CPAP. Continue to wean sedation as tolerated. (Shakir Carroll) Attending Statement The exam, history, and the medical decision-making described in the above note were completed with the assistance of the mid-level provider. I reviewed and agree with the findings presented. I attest that I had a [id number] encounter with the patient on the same day, and personally performed and documented my assessment and findings in the medical record. (Hossein Barrow MD) Shakir Carroll August 02, 2017 09:56 Hossein Barrow MD August 02, 2017 12:04
--- NOTE | 2017-08-02 12:52 | PD.CARD.PN ---
Subjective Subjective Remarks trached, sedated Objective Medications Current Medications Medications (Trade) Dose Ordered Sig/Claudia Route Start Time Stop Time Status Last Admin (NS Flush) 2 ml UNSCH PRN IV FLUSH 07/21/17 00:00 (NS Flush) 2 ml BID IV FLUSH 07/21/17 09:00 08/02/17 08:02 (Tears Naturale Opth Soln) 1 drop TID EACH EYE 07/21/17 09:00 08/02/17 12:41 (Zofran Inj) 4 mg Q6H PRN IV PUSH 07/21/17 00:00 (Albuterol Neb) 2.5 mg Q2HR NEB PRN INH 07/21/17 00:00 08/02/17 08:08 ([facility] Nursing Information) 1 Q361D XX 07/21/17 00:00 07/21/17 00:00 (Chlorhexidine 2% Cloth) Taper DAILY@04 TOP 07/21/17 04:00 07/17/18 03:59 07/25/17 04:00 (Chlorhexidine 2% Cloth) 3 pack UNSCH PRN TOP 07/21/17 00:00 (Dilia-Colace) 1 tab BID PO 07/21/17 09:00 08/01/17 09:17 (Milk Of Magnesia Liq) 30 ml Q12H PRN PO 07/21/17 00:00 (Senokot) 17.2 mg Q12H PRN PO 07/21/17 00:00 (Dulcolax Supp) 10 mg DAILY PRN RECTAL 07/21/17 00:00 (Lactulose Liq) 30 ml DAILY PRN PO 07/21/17 00:00 (Peridex 0.12% Liq) 15 ml BID@08,20 MT 07/21/17 08:00 08/02/17 08:02 (D50w (Vial) Inj) 50 ml UNSCH PRN IV PUSH 07/21/17 00:00 (Glucagon Inj) 1 mg UNSCH PRN OTHER 07/21/17 00:00 (NovoLOG SUPPLEMENTAL SCALE) 1 Q6HR SQ 07/21/17 00:00 07/30/17 17:49 (Pulmicort Respule Neb) 0.5 mg Q12HR NEB NEB 07/21/17 08:00 08/02/17 08:08 (Brethine Inj) 1 mg UNSCH PRN SQ 07/21/17 00:30 (Lactulose Liq) 30 ml DAILY PO 07/22/17 09:00 08/01/17 09:17 (Apresoline Inj) 10 mg Q1H PRN IV PUSH 07/22/17 09:45 07/24/17 19:51 (Nitroglycerin 2% Oint) 2 inch Q6H PRN TOPICAL 07/22/17 09:45 (Miralax) 17 gm BID PO 07/23/17 21:00 08/01/17 09:17 Levetriacetam 750 mg/Sodium Chloride 107.5 ml @ 420 mls/hr Q12H IV 07/25/17 10:00 08/02/17 09:26 (Pepcid) 20 mg Q12HR PO 07/25/17 21:00 08/02/17 08:03 (Brethine Inj) 1 mg UNSCH PRN SQ 07/26/17 09:45 Propofol 100 ml @ 3.102 mls/ hr TITRATE PRN IV 07/26/17 11:00 08/02/17 06:43 Fentanyl Citrate 250 ml @ 5 mls/hr TITRATE PRN IV 07/26/17 11:00 08/01/17 14:30 (Lactinex) 1 tab TID PO 07/28/17 18:00 08/02/17 08:03 (Norvasc) 5 mg BID PO 07/29/17 09:00 08/02/17 09:28 (Lasix Inj) 40 mg BID@,18 IV PUSH 07/29/17 09:00 08/02/17 08:03 (Prinivil) 10 mg DAILY PO 07/29/17 09:00 08/02/17 09:29 (Apresoline) 50 mg Q8H PRN PO 07/30/17 09:15 Pharmacy Profile Note 0 ml @ 0 mls/hr UNSCH OTHER 07/30/17 13:00 Ceftriaxone Sodium 2000 mg/ Sodium Chloride 100 ml @ 200 mls/hr Q24H IV 07/30/17 14:00 08/01/17 14:00 Vancomycin HCl 1750 mg/Sodium Chloride 517.5 ml @ 250 mls/hr Q12H IV 07/30/17 16:00 08/02/17 03:06 (Apresoline) 100 mg Q8H PO 07/30/17 18:00 08/02/17 09:29 ([facility] Nursing Information) D/C ICU ELECTROLYTE ORDERS... UNSCH PRN .XX 08/01/17 08:30 ([facility] Nursing Information) ICU - CALL ORDERING PHYSIC... UNSCH PRN .XX 08/01/17 08:30 Potassium Chloride 100 ml @ 25 mls/hr UNSCH PRN IV 08/01/17 08:30 (K-Lyte Cl Eff) 50 meq UNSCH PRN PO 08/01/17 08:30 Potassium Chloride 100 ml @ 50 mls/hr UNSCH PRN IV 08/01/17 08:30 Magnesium Sulfate 4 gm/Sodium Chloride 108 ml @ 54 mls/hr UNSCH PRN IV 08/01/17 08:30 Magnesium Sulfate 2 gm/Sodium Chloride 104 ml @ 52 mls/hr UNSCH PRN IV 08/01/17 08:30 (Mag-Ox) 800 mg UNSCH PRN PO 08/01/17 08:30 Sodium Phosphate 30 mmol/Sodium Chloride 260 ml @ 43.333 mls/ hr UNSCH PRN IV 08/01/17 08:30 (K-Phos) 2,000 mg UNSCH PRN PO 08/01/17 08:30 Potassium Phosphate 30 mmol/ Sodium Chloride 260 ml @ 43.333 mls/ hr UNSCH PRN IV 08/01/17 08:30 ([facility] Pharm[facility] Ordered Lab Info) SPECIFIC LAB TO BE DRAWN:VANCOMYCIN TROUGH DATE TO... ONCE ONCE .XX 08/03/17 03:45 08/03/17 03:46 (Diamox Inj) 500 mg Q8H IV PUSH 08/01/17 10:30 Future Hold 08/01/17 18:33 Vital Signs / I&O Vital Signs Date Time Temp Pulse Resp B/P (MAP) Pulse Ox O2 Delivery O2 Flow Rate FiO2 08/02/17 12:00 97 08/02/17 12:00 35 08/02/17 10:00 97 08/02/17 08:14 35 08/02/17 08:14 99 35 08/02/17 08:00 98.6 74 22 115/55 (75) 97 08/02/17 08:00 70 08/02/17 08:00 40 08/02/17 06:00 90 08/02/17 04:00 40 08/02/17 04:00 99.5 75 20 98/58 (71) 100 08/02/17 04:00 75 08/02/17 03:32 99 40 08/02/17 02:00 65 08/02/17 01:30 98 40 08/02/17 00:00 40 08/02/17 00:00 100.0 78 20 87/50 (62) 100 08/02/17 00:00 73 08/01/17 22:00 82 08/01/17 20:58 99 50 08/01/17 20:00 87 08/01/17 20:00 99.3 78 23 105/57 (73) 98 08/01/17 20:00 50 08/01/17 18:00 75 08/01/17 16:00 40 08/01/17 16:00 82 08/01/17 16:00 99.9 82 23 118/66 (83) 96 08/01/17 14:00 67 I/O 08/01/17 08/01/17 08/01/17 08/02/17 08/02/17 08/02/17 07:00 15:00 23:00 07:00 15:00 23:00 Intake Total 1593 ml 407.5 ml 1456.5 ml 1355 ml Output Total 2727 ml 3700 ml 2084 ml Balance -1134 ml 407.5 ml -2243.5 ml -729 ml IV Total 967 ml 407.5 ml 724.5 ml 715 ml Tube Feeding 626 ml 732 ml 640 ml Output Urine Total 2650 ml 3700 ml 2050 ml Drainage Total 77 ml 34 ml # Bowel Movements 2 3 2 Physical Exam GENERAL: SKIN: Warm and dry. HEAD: Normocephalic. EYES: No scleral icterus. No injection or drainage. NECK: Supple, trachea midline. No JVD or lymphadenopathy. CARDIOVASCULAR: Regular rate and rhythm without murmurs, gallops, or rubs. RESPIRATORY: Breath sounds equal bilaterally. No accessory muscle use. GASTROINTESTINAL: Abdomen soft, non-tender, nondistended. MUSCULOSKELETAL: No cyanosis, or edema. BACK: Nontender without obvious deformity. No CVA tenderness. Laboratory Laboratory Tests Test 08/02/17 05:45 White Blood Count 19.9 TH/MM3 Red Blood Count 3.14 MIL/MM3 Hemoglobin 9.8 GM/DL Hematocrit 29.8 % Mean Corpuscular Volume 94.9 FL Mean Corpuscular Hemoglobin 31.1 PG Mean Corpuscular Hemoglobin Concent 32.7 % Red Cell Distribution Width 14.1 % Platelet Count 311 TH/MM3 Mean Platelet Volume 7.7 FL Blood Urea Nitrogen 26 MG/DL Creatinine 0.72 MG/DL Random Glucose 124 MG/DL Calcium Level 7.7 MG/DL Sodium Level 148 MEQ/L Potassium Level 3.6 MEQ/L Chloride Level 113 MEQ/L Carbon Dioxide Level 28.4 MEQ/L Anion Gap 7 MEQ/L Estimat Glomerular Filtration Rate 110 ML/MIN Imaging Last 24 hours Impressions Chest X-Ray 08/02/17 0600 Signed Impressions: Service Date/Time: July 04:30 - CONCLUSION: Unchanged small left effusion with bibasilar infiltrates more pronounced on the left. Oumar Bray Jr., MD Assessment and Plan Problem List: (1) Toxic metabolic encephalopathy ICD Codes: G92 - Toxic encephalopathy (2) Tetrahydrocannabinol (THC) use disorder, mild, abuse ICD Codes: F12.10 - Cannabis abuse, uncomplicated (3) Encephalopathy ICD Codes: G93.40 - Encephalopathy, unspecified (4) Stroke ICD Codes: I63.9 - Cerebral infarction, unspecified (5) Chronic, continuous use of opioids ICD Codes: F11.90 - Opioid use, unspecified, uncomplicated (6) Cocaine use ICD Codes: F14.90 - Cocaine use, unspecified, uncomplicated Assessment and Plan 1.) I am not sure if he is stable enough to undergo head and neck manipulation to undergo swapnil; he is intubated so i cant assess his ability to swallow; will consider swapnil if risk benefit ratio favors it, he is cleared by neurology and neurosurgery for head and neck manipulation and if findings may supervisor policy change clerks 2.) D/w Dr Epperson 07/28/17; agrees that swapnil will not change short term management and put patient at risk of neurologic injury from neck manipulation during swapnil, d/w nurse at bedside as well 3.) Will d/w ID and NS risks/benefits of swapnil; d/w at bedside 07/31/17 Navid Corrales MD August 02, 2017 12:52
--- NOTE | 2017-08-02 12:59 | HHI.HCSW ---
[employer] Developer Visit Significant Family/Friend Attempted to see to provide ongoing emotional and social support. She is currently not at bedside. RN reports she left to get something to eat. Remains the bedside for most of the day. has palliative care contact information. . Follow Up Visit Palliative care will continue to follow throughout hospitalization. has palliative SW contact information as needed. Palliative AUTOMOTIVE SERVICE ASSISTANT to continue to follow to provide emotional and social support to build rapport and assist with goals of care discussion. Roxy Bray MSW, AUTOMOTIVE SERVICE ASSISTANT August 02, 2017 12:59
--- NOTE | 2017-08-02 13:21 | HHI.CCPN ---
Subjective Remarks/Hospital Course This is a 66-year-old male. Date of admission 07/20/2017. Past medical history includes hypertension, hyperlipidemia, COPD with ongoing tobacco abuse, peptic ulcer disease and anxiety. He also has history of lumbar stenosis, degenerative joint disease of the back and cervical spine. He presents to [facility] with the following history. 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 According to his at bedside, patient is drug tested. Patient returned home from work on Sunday after his 30 day work schedule. Patient was changing the tire of a bike friend yesterday. Patient returned home in no acute distress. Today, patient was tired and was sleeping all day. Initially patient had similar symptoms at lunch. When the attempted to wake him up later this evening patient be was nonresponsive with a weak pulse. She attempted to use ammonia without response. At that time EMS was called and patient was transferred to [facility]. Patient was noted to be an acute change with a creatinine of 3.8. Baseline is normal. Potassium is 7.4 without EKG changes. Patient received bicarbonate, insulin/D50, calcium and Kayexalate in the ED. Repeat potassium 3 hours. Patient is making urine and appears concentrated. UA is pending. Patient leukocytosis 13,000. CPK was 5000. Lactic acid was 2.6. Urine drug screen revealed positive for opiates, amphetamines, benzodiazepines, THC and cocaine. Head CT is currently pending. Due to altered mental status patient was admitted after receiving 20 mg etomidate and 100 mg succinylcholine by ED physician. Patient also received 4 mg of midazolam and after which patient became hypotensive is currently receiving 3 L normal saline wide open. Head CT is currently pending. Patient received clindamycin along with piperacillin/ tazobactam in the ED. 07/21: Overnight the patient required to protamine infusion low-dose currently being weaned off. The patient continues on fentanyl and propofol infusion for ventilator synchrony. Patient's undergoing MRI evaluation results pending. The patient was noted to have significant elevation in creatinine kinase the patient is bolused 1 L IV fluids increase in normal saline 200 cc/hr. Lactic acid downtrending will continue to trend creatinine noted to be decreasing. 07/22: Currently afebrile. Off all vasopressors. We will switch to LR at 200 cc an hour. Recheck BMP this afternoon. Moving all 4 x-rays spontaneously right upper extremity less. Opens eyes but not following commands. Positive gag and corneal reflex. Subjective: 07/23: Currently on dexmedetomidine drip at 0.7 mg/kg/h. Minimal response to distinguish. Will hold at the present time and reassess neurological condition. EEG showed no epileptiform activity. Tolerating tube feeding. No bowel movement since admission. Currently afebrile. 07/24: Per nursing staff patient was off sedation over the night and he woke up and followed some simple commands, but due to agitation, hypertension and tachycardia patient was restarted on sedation. He is currently on Precedex at 1 , tolerating CPAP, sedated. T-max of 99. I/O 3029/1451. 07/25: No events over the night. This morning while attempting CPAP trial patient became rigid, unresponsive, with gaze deviation, tachypneic tachycardic and hypertensive, suggesting seizure activity. Patient was immediately given Ativan 2 mg 1 with resolution of episode. Neurology was contacted and plan for EEG and CT head as well as propofol infusion. No family present at bedside. T-max of 100.7 over the night. Urine output 2300 mL's over the last 24 hours. 07/26: EVD placed yesterday for declining mental status with hydrocephalus and severe cerebellar edema. this AM, extensor posturing. supratentorial ICPs controlled, but cerebellar edema persists. discussed with Dr. Castillo: csf could be consistent with encephalitis. d/w Dr. Barrow: will need posterior fossa decompression. 07/27: no improvements in mental status. s/p suboccipital crani yesterday. remains intermittently on cardene and levophed to maintain cpp. ICP controlled. brain biopsies pending. 07/28: Osmolality suitably concentrated. ICP well controlled. Maintaining head up position. On attempted CPAP trial patient has 25 second periods of apnea. Unstable neurological status we will not stress him with extended spontaneous breathing trials. 07/29: Requiring Cardene still to maintain systolic blood pressure less than 160. Markedly edematous and will need to start active diuresis. No change in neurologic function. Apnea episodes persist. 07/30: off cardene. still grossly volume overloaded. neuro exam remains poor. 07/31: no improvement in mental status. wbc slight uptrend. afebrile. awaiting MRI for prognostication and to re-evaluate edema. adequate diuresis yesterday. 08/01: encephalopathy persists. wbc uptrending but afebrile. unable to obtain MRI due to elevated ICP, cannot tolerate lying flat. would benefit from MRI when able. diuresing well. 08/02: low grade fevers persist. wbc still high. on empiric abx. ventric has been in x 7 days: with fever and poor neurologic exam, will send CSF for cell count and culture. no change in mental status. Objective Vital Signs Date Time Temp Pulse Resp B/P (MAP) Pulse Ox O2 Delivery O2 Flow Rate FiO2 08/02/17 12:00 97 08/02/17 12:00 35 08/02/17 08:14 99 08/02/17 08:00 98.6 22 115/55 (75) Intake and Output 08/02/17 08/02/17 08/03/17 08:00 16:00 00:00 Intake Total 1355 ml Output Total 2084 ml Balance -729 ml Result Diagram: 08/02/17 0545 08/02/17 0545 Imaging Last 24 hours Impressions Chest X-Ray 07/24/17 0600 Signed Impressions: Service Date/Time: Monday, July 24, 2017 03:41 - CONCLUSION: Patchy diffuse interstitial prominence and pulmonary vascular prominence unchanged. Ankur Shields MD Last Impressions Chest X-Ray 07/23/17 0600 Signed Impressions: Service Date/Time: Sunday, July 23, 2017 04:10 - CONCLUSION: Lungs grossly clear. Tubes and catheter in good position. Anukr Shields MD Neck Magnetic Resonance Angiography 07/21/17 0000 Signed Impressions: Service Date/Time: Friday, July 21, 2017 08:40 - CONCLUSION: No acute neck arteriovascular abnormality is identified. There is no significant stenosis within either internal carotid artery. Lonnie Ross MD Head Magnetic Resonance Angiography 07/21/17 0000 Signed Impressions: Service Date/Time: Friday, July 21, 2017 08:40 - CONCLUSION: No acute intracranial vascular abnormality is identified. Lonnie Ross MD Brain MRI 07/21/17 0000 Signed Impressions: Service Date/Time: Friday, July 21, 2017 08:40 - CONCLUSION: Multifocal areas of restricted diffusion/recent ischemia within the centrum semiovale bilaterally, bilateral occipital lobes, bilateral basal ganglia, bilateral temporal lobes, and bilateral cerebellar hemispheres. Findings could be related to global anoxic event or less likely embolic phenomenon. Lonnie Ross MD Abdomen Ultrasound 07/21/17 0000 Signed Impressions: Service Date/Time: Friday, July 21, 2017 15:47 - CONCLUSION: Cholelithiasis. No gallbladder wall thickening or pericholecystic fluid. Victor Manuel Barros MD Head CT 07/20/17 2225 Signed Impressions: Service Date/Time: Friday, July 21, 2017 00:53 - CONCLUSION: Abnormal brain appearance. Recommend MRI for further evaluation Lonnie Lock MD Objective Remarks General - middle-aged gentleman, intubated, ill-appearing, unresponsive HEENT - pupils equal, dilated, reactive, sclerae anicteric, neck supple, no nuchal rigidity. CV - normal rate, regular rhythm. sinus. no JVD Chest - equal chest rise. full mechanical support. PRVC. peep 5. Decreased breath sounds both bases. Abdomen - soft, non-tender, non-distended, no guarding. Skin - no rashes, no cyanosis, multiple tattoos bilateral upper extremities and thorax Extremities - warm and well perfused, no edema, + peripheral pulses, no clubbing Neuro - intubated via tracheostomy, off sedation, unresponsive, pupils equal and reactive, extensor posturing. A/P Assessment and Plan Assessment: 66yM with acute encephalopathy and severe cerebellar edema of unclear etiology. very critically ill with ongoing life-threatening malignant cerebral edema in the posterior fossa. s/p suboccipital crani for decompression 07/26 and brain biopsies. continue hyperosmolar therapy and supportive care. Unlikely to have a favorable outcome. very poor prognosis. remains critically ill. goals remain aggressive. 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 neurology: Dr. Castillo following neurosurgery: Dr. Barrow following. hyperosmolar therapy serial sodiums, osms Hold 3% nacl, osmolality 155. CT brain 07/21 There is patchy mild diminished attenuation in centrum semi-ovale bilaterally. There is mild heterogeneous diminished density in the genu region of internal capsules and globus pallidus bilaterally. There is vague diminished density in the cerebellar hemispheres bilaterally. There is no evidence of intracranial mass or hemorrhage. There is no abnormal extra-axial fluid accumulation or shift present. 07/21 MRI brain-Multifocal areas of restricted diffusion/recent ischemia within the centrum semiovale bilaterally, bilateral occipital lobes, bilateral basal ganglia, bilateral temporal lobes, and bilateral cerebellar hemispheres. Findings could be related to global anoxic event or less likely embolic phenomenon. 07/21 EEG revealed no epileptic activity 07/21-MRA brain/neck -no acute findings UDS + opiates, amphetamines, benzodiazepines, THC and cocaine CSF studies all negative. brain biopsies negative. EVD placed 07/25 by [facility]. CV: History of essential hypertension Hyperlipidemia Lactic acidosis -resolved Sinus bradycardia- secondary to elevated ICP Holding valsartan 320 mg p.o. daily due to hypotension/acute kidney injury Holding rosuvastatin 10 mg p.o. q. Sunday/Sunday/Sunday due to elevated LFTs. Resume when clinically indicated. amlodipine 5mg po BID lisinopril 10mg daily. TTE results reviewed, LV size normal, EF of 55%. Resp: Acute hypoxemic and hypercarbic respiratory failure Tobacco use disorder Continue [facility] Ventilator bundle Albuterol/ipratropium aerosols every 6 hours with albuterol aerosol every 2 hours as needed dyspnea budesonide 0.5/2 1 inhalation twice daily since on budesonide/formoterol 160/ 4.5 1 puff twice daily at home along with albuterol inhaler twice daily no weaning of mechanical ventilation until mental status and ICP improves wean fio2 for goal spo2 > 90% hob elevated Tracheostomy 07/28. GI: Elevated transaminases -slowly trending down Rhabdomyolysis -improving, urine output is adequate, CPK trending down Cholelithiasis CK levels-5000->34357->20K --> 5930 --> 3370 07/21 Liver ultrasound revealed cholelithiasis Hepatitis panel-negative Tube feeding with Neutra hep goal 45 cc an hour Lansoprazole for GI prophylaxis Docusate/senna 1 tablet twice daily for bowel regimen will need G tube. will consult GI. : Metabolic alkalosis Adler catheter has been placed for accurate I's and O's in a critically ill patient keep adler today. continue forced diuresis. Endo: Sliding scale insulin with NovoLog with Accu-Cheks every 6 hours to maintain euglycemia/low regimen Hemoglobin A1c documented at 6.1 Renal: Acute kidney injury -resolved Rhabdomyolysis resolved. Acute intravascular Volume overload -persistent. lasix 40mg iv q12h Monitor urine output Accurate I's and O's Renal ultrasound revealed no hydronephrosis bilaterally 07/21 Urine eosinophils negative. Avoid nephrotoxic drugs Heme: Normocytic anemia Monitor CBC daily. Follow trend hold SQH ID: Staph bacteremia Received piperacillin/tazobactam and clindamycin ED for possible aspiration Blood cultures 2, UA, sputum 07/21 all pending/no growth to date Strep pneumo, Legionella urine antigens-negative ID involved and following. on Rocephin for staph in 2/2 bottles blood cultures. send CSF for cell count and culture given persistent fevers and elevated wbc. FEN: Hypophosphatemia -resolved Electrolyte protocol MSK: History of multiple lumbar/cervical spine surgeries PT evaluate and treat Access 07/25: left SC TLC: will remove given rising wbc count. adler 07/25 EVD Prophylaxis -GI -lansoprazole -DVT -SCD/ Heparin SQ Overall impression: This gentleman remains critically ill with a pronounced neurologic injury. Osmolality is acceptably concentrated and we will hold hypertonic saline for now. Cerebral perfusion pressure is suitably high. ICP remain a concern. prognosis overall poor. Paulo Boswell MD August 02, 2017 13:21
[2017-08-02] MEDS: cefTRIAXone INJ 2,000 MG in SODIUM CHLORIDE 0.9% INJ 100 ML IV SCH (13:22)
--- NOTE | 2017-08-02 13:56 | PD.CONS ---
HPI History of Present Illness This is a 66 year old male who presented with AMS. He was increasingly lethargic and then his found him unresponsive and called EMS. UDS positive for multiple substances. He was found to have multifocal infarcts, developed obstructive hydrocephalus and cerebral edema. he is s/p decompressive crani and ventriculostomy placement 07/25/17. GI is consulted for PEG tube placement. (Pat Núñez) PFSH Past Medical History HTN HLD depression anxiety COPD DDD hx colonic volvulus PUD Past Surgical History * Appendectomy * partial colectomy for volvulus * Lumbar spinal surgery in 1989, 1993, 2009, 2016 * Cervical laminectomy 2003 * Left rotator cuff repair 2002 * EGD 2008--gastric ulcer . (Pat Núñez) Coded Allergies: No Known Allergies (Verified Allergy, Unknown, 07/20/17) Family History Patient's father at age 73 from a myocardial infarction. Patient's also believes the father had hypertension and diabetes. Patient's mother at age 84 from complications of a traumatic brain injury. One brother of a suicide. 2 brothers are alive and well. No known history of stroke. . Social History smokes 2ppd, social etoh UDS pos for opiates, amphetamines, benzos, THC, cocaine (Pat Núñez) Review of Systems noncontributory (Pat Núñez) GI Exam Vitals I&O Vital Signs Date Time Temp Pulse Resp B/P (MAP) Pulse Ox O2 Delivery O2 Flow Rate FiO2 08/02/17 12:00 97 08/02/17 12:00 35 08/02/17 10:00 97 08/02/17 08:14 35 08/02/17 08:14 99 35 08/02/17 08:00 98.6 74 22 115/55 (75) 97 08/02/17 08:00 70 08/02/17 08:00 40 08/02/17 06:00 90 08/02/17 04:00 40 08/02/17 04:00 99.5 75 20 98/58 (71) 100 08/02/17 04:00 75 08/02/17 03:32 99 40 08/02/17 02:00 65 08/02/17 01:30 98 40 08/02/17 00:00 40 08/02/17 00:00 100.0 78 20 87/50 (62) 100 08/02/17 00:00 73 08/01/17 22:00 82 08/01/17 20:58 99 50 08/01/17 20:00 87 08/01/17 20:00 99.3 78 23 105/57 (73) 98 08/01/17 20:00 50 08/01/17 18:00 75 08/01/17 16:00 40 08/01/17 16:00 82 08/01/17 16:00 99.9 82 23 118/66 (83) 96 08/01/17 14:00 67 I/O 08/01/17 08/01/17 08/01/17 08/02/17 08/02/17 08/02/17 07:00 15:00 23:00 07:00 15:00 23:00 Intake Total 1593 ml 407.5 ml 1456.5 ml 1355 ml Output Total 2727 ml 3700 ml 2084 ml Balance -1134 ml 407.5 ml -2243.5 ml -729 ml IV Total 967 ml 407.5 ml 724.5 ml 715 ml Tube Feeding 626 ml 732 ml 640 ml Output Urine Total 2650 ml 3700 ml 2050 ml Drainage Total 77 ml 34 ml # Bowel Movements 2 3 2 Imaging Last Impressions Chest X-Ray 08/02/17 06 Signed Impressions: Service Date/Time: July 04:30 - CONCLUSION: Unchanged small left effusion with bibasilar infiltrates more pronounced on the left. Oumar Bray Jr., MD Head CT 07/27/17 0600 Signed Impressions: Service Date/Time: Thursday, July 27, 2017 13:39 - CONCLUSION: 1. Decrease in ventricular size since July 25. Extensive low attenuation and swelling in both occipital lobes and also in the periventricular region, basal ganglia and focally in the right occipital lobe. Differential diagnosis includes edema or evolving infarcts. There is mass effect on the brainstem and posterior fossa with effacement of the fourth ventricle. Ananda Messina MD Abdomen X-Ray 07/27/17 0000 Signed Impressions: Service Date/Time: Thursday, July 27, 2017 20:37 - CONCLUSION: NG tube coiled in the lower thoracic esophagus. Oumar Bray Jr., MD Head/Brain Mag Res Venography 07/25/17 0000 Signed Impressions: Service Date/Time: Tuesday, July 25, 2017 19:54 - CONCLUSION: Patent dural sinuses. Lonnie Munguia MD Brain MRI 07/25/17 0000 Signed Impressions: Service Date/Time: Tuesday, July 25, 2017 10:37 - CONCLUSION: Worsening brain appearance with developing hydrocephalus which is presumably related to increasing edema in the posterior fossa. See above discussion. Lonnie Lock MD Neck Magnetic Resonance Angiography 07/21/17 0000 Signed Impressions: Service Date/Time: Friday, July 21, 2017 08:40 - CONCLUSION: No acute neck arteriovascular abnormality is identified. There is no significant stenosis within either internal carotid artery. Lonnie Ross MD Head Magnetic Resonance Angiography 07/21/17 0000 Signed Impressions: Service Date/Time: Friday, July 21, 2017 08:40 - CONCLUSION: No acute intracranial vascular abnormality is identified. Lonnie Ross MD Abdomen Ultrasound 07/21/17 0000 Signed Impressions: Service Date/Time: Friday, July 21, 2017 15:47 - CONCLUSION: Cholelithiasis. No gallbladder wall thickening or pericholecystic fluid. Victor Manuel Barros MD Laboratory Test 08/02/17 05:45 White Blood Count 19.9 TH/MM3 Red Blood Count 3.14 MIL/MM3 Hemoglobin 9.8 GM/DL Hematocrit 29.8 % Mean Corpuscular Volume 94.9 FL Mean Corpuscular Hemoglobin 31.1 PG Mean Corpuscular Hemoglobin Concent 32.7 % Red Cell Distribution Width 14.1 % Platelet Count 311 TH/MM3 Mean Platelet Volume 7.7 FL Blood Urea Nitrogen 26 MG/DL Creatinine 0.72 MG/DL Random Glucose 124 MG/DL Calcium Level 7.7 MG/DL Sodium Level 148 MEQ/L Potassium Level 3.6 MEQ/L Chloride Level 113 MEQ/L Carbon Dioxide Level 28.4 MEQ/L Anion Gap 7 MEQ/L Estimat Glomerular Filtration Rate 110 ML/MIN Date/Time Source Procedure Growth Status 08/01/17 13:52 Blood Peripheral Aerobic Blood Culture - Preliminary NO GROWTH IN 1 DAY Resulted 08/01/17 13:52 Blood Peripheral Anaerobic Blood Culture - Preliminary NO GROWTH IN 1 DAY Resulted 07/26/17 10:50 Cerebral Spinal Fluid Shunt Fluid Acid Fast Stain - Final NO ACID FAST BACILLI SEEN Resulted 07/26/17 10:50 Cerebral Spinal Fluid Shunt Fluid Mycobacterial Culture Pending Resulted 07/27/17 16:30 Sputum Endotracheal Gram Stain - Final Complete 07/27/17 16:30 Sputum Endotracheal Sputum Culture - Final LIGHT GROWTH NORMAL RESPIRATORY LUBA Complete 07/20/17 22:50 Urine Catheterized Urine Legionella Antigen - Final PRESUMPTIVE NEGATIVE FOR LEGIONELLA P... Complete 07/20/17 22:50 Urine Catheterized Urine Streptococcus pneumoniae Antigen (M - Final PRESUMPTIVE NEGATIVE FOR STREPTOCOCCU... Complete 07/26/17 14:19 Wound Other Fungal Smear - Final NO FUNGAL ELEMENTS SEEN. Resulted 07/26/17 14:19 Wound Other Fungal Culture Pending Resulted Physical Examination HEENT: pupils dilated; normocephalic; atraumatic; no jaundice. trach CHEST: CTA CARDIAC: RRR ABDOMEN: Soft, protuberant, nontender; no hepatosplenomegaly; bowel sounds are present in all four quadrants. NGT EXTREMITIES: No clubbing, cyanosis, gen edema SKIN: Normal; no rash; no jaundice. QUILT STUFFER: unresponsive (Pat Núñez) Assessment and Plan Plan ASSESSMENT - vent dependent, dysphagia - GI consulted for PEG tube placement. pt with mult cerebral infarcts, s/p crani & ventriculostomy. s/p trach. palliative care following, goals aggressive PLAN - EGD and PEG tube placement tomorrow - on vanc, rocephin - obtain consent - hold TF after MN - further recs to follow pt seen by myself and Dr Rooney and this not is on her behalf (Pat Núñez) Pat Núñez August 02, 2017 13:56 Laverne Rooney MD August 02, 2017 18:12
[2017-08-02 16:36] LABS: TOTAL PROTEIN,CSF 27.5 MG/DL (15.0-45.0)
[2017-08-02] MEDS: fentaNYL DRIP 250 ML IV PRN (17:02)
--- NOTE | 2017-08-02 17:03 | HHI.HCPN ---
Reason for visit a. To assist with evaluation and management of symptoms including: pain; encephalopathy; dyspnea b. To assist medical decision maker(s) with: better understanding of current medical conditions; weighing benefits/burdens of medical treatment options; making medical treatment decisions. . Subjective/Interval History Patient seen and examined in ICU. Also present Roxy Bray LCSW and nurse. On CPAP to trach. Neurosurgery reports no improvement in neuro status, sedation continues to decrease, now on Fentanyl 50mcg and Propofol off. Clinical data review: * Tmax 100. HR 70-90. BP 155/85. * CSF culture pending. * 08/01/17 - Blood cultures pending. * WBC 19.9, hemoglobin 9.8, hematocrit 29.8, platelets 311. * Sodium 148. * Chest xray - unchanged small left effusion with bibasilar infiltrates more pronounced on the left. Gastroenterology, Dr. Rooney was consulted with plan for PEG tube placement on . . Advance Directives Living Will: Copy in medical record Health Care Surrogate: Copy in medical record Durable Power of Electric Powerline Examiner: Completed, but not made available Advance Directive Specifics Date completed: Living will and healthcare surrogate designation were completed on 09/29/2016. . Health Care Surrogate(s): The healthcare surrogate is the patient's spouse--Coty Weaver . Documented care wishes: The patient's living will is the standard [place] living will. He has initialed only one condition to activate his wishes -- if he has "an end-stage condition." He would not want life prolonging procedures should be diagnosed with such condition. . Significant change in goals: FULL CODE. Goals remain aggressive including PEG tube at this time. . Objective Vital Signs Date Time Temp Pulse Resp B/P (MAP) Pulse Ox O2 Delivery O2 Flow Rate FiO2 08/02/17 15:54 96 35 08/02/17 14:00 84 08/02/17 12:00 98.7 92 20 155/85 (108) 96 08/02/17 12:00 97 08/02/17 12:00 35 08/02/17 10:00 97 08/02/17 08:14 35 08/02/17 08:14 99 35 08/02/17 08:00 98.6 74 22 115/55 (75) 97 08/02/17 08:00 70 08/02/17 08:00 40 08/02/17 06:00 90 08/02/17 04:00 40 08/02/17 04:00 99.5 75 20 98/58 (71) 100 08/02/17 04:00 75 08/02/17 03:32 99 40 08/02/17 02:00 65 08/02/17 01:30 98 40 08/02/17 00:00 40 08/02/17 00:00 100.0 78 20 87/50 (62) 100 08/02/17 00:00 73 08/01/17 22:00 82 08/01/17 20:58 99 50 08/01/17 20:00 87 08/01/17 20:00 99.3 78 23 105/57 (73) 98 08/01/17 20:00 50 08/01/17 18:00 75 Intake & Output 08/02/17 08/02/17 07:00 19:00 Intake Total 1462 ml 207 ml Output Total 2084 ml Balance -622 ml 207 ml IV Total 822 ml 207 ml Tube Feeding 640 ml Output Urine Total 2050 ml Drainage Total 34 ml # Bowel Movements 2 Physical Exam CONSTITUTIONAL/GENERAL: This is an adequately nourished patient, lightly sedated in a surgical intensive care unit bed. TUBES/LINES/DRAINS: Ventriculostomy, tracheostomy, NG tube, Garner catheter, SCDs. HEAD: Ventriculostomy on right. SKIN: Multiple tattoos. No jaundice, rashes, or lesions. No wounds seen anteriorly. Skin temperature appropriate. Not diaphoretic. EYES: Eyes closed. ENT: NG tube, tracheostomy. CARDIOVASCULAR: Regular rate and rhythm without murmurs. RESPIRATORY/CHEST: Symmetric, unlabored respirations on vent. Decreased breath sounds bilaterally. GASTROINTESTINAL: Abdomen soft, non-tender, slightly distended. Bowel sounds present. GENITOURINARY: Without palpable bladder distension. Scrotal edema present. Garner catheter in place. MUSCULOSKELETAL: Extremities with edema. NEUROLOGICAL: Sedated, on Fentanyl 50mcg. Slight questionable withdraw to pain UEs. PSYCHIATRIC: Unable to evaluate due to level of responsiveness. . Diagnostic Tests Laboratory Laboratory Tests Test 07/31/17 06:05 08/01/17 03:30 08/02/17 05:45 08/02/17 15:15 White Blood Count 13.1 TH/MM3 (4.0-11.0) 19.9 TH/MM3 (4.0-11.0) 19.9 TH/MM3 (4.0-11.0) Red Blood Count 2.82 MIL/MM3 (4.50-5.90) 3.50 MIL/MM3 (4.50-5.90) 3.14 MIL/MM3 (4.50-5.90) Hemoglobin 8.9 GM/DL (13.0-17.0) 10.8 GM/DL (13.0-17.0) 9.8 GM/DL (13.0-17.0) Hematocrit 26.9 % (39.0-51.0) 32.8 % (39.0-51.0) 29.8 % (39.0-51.0) Mean Corpuscular Volume 95.2 FL (80.0-100.0) 93.7 FL (80.0-100.0) 94.9 FL (80.0-100.0) Mean Corpuscular Hemoglobin 31.7 PG (27.0-34.0) 30.8 PG (27.0-34.0) 31.1 PG (27.0-34.0) Mean Corpuscular Hemoglobin Concent 33.3 % (32.0-36.0) 32.9 % (32.0-36.0) 32.7 % (32.0-36.0) Red Cell Distribution Width 13.7 % (11.6-17.2) 14.0 % (11.6-17.2) 14.1 % (11.6-17.2) Platelet Count 387 TH/MM3 (150-450) 446 TH/MM3 (150-450) 311 TH/MM3 (150-450) Mean Platelet Volume 7.5 FL (7.0-11.0) 7.6 FL (7.0-11.0) 7.7 FL (7.0-11.0) Blood Urea Nitrogen 32 MG/DL (7-18) 30 MG/DL (7-18) 26 MG/DL (7-18) Creatinine 0.77 MG/DL (0.60-1.30) 0.71 MG/DL (0.60-1.30) 0.72 MG/DL (0.60-1.30) Random Glucose 95 MG/DL (74-106) 99 MG/DL (74-106) 124 MG/DL (74-106) Total Protein 4.7 GM/DL (6.4-8.2) Calcium Level 7.2 MG/DL (8.5-10.1) 7.6 MG/DL (8.5-10.1) 7.7 MG/DL (8.5-10.1) Sodium Level 152 MEQ/L (136-145) 150 MEQ/L (136-145) 148 MEQ/L (136-145) Potassium Level 3.8 MEQ/L (3.5-5.1) 3.5 MEQ/L (3.5-5.1) 3.6 MEQ/L (3.5-5.1) Chloride Level 117 MEQ/L (98-107) 113 MEQ/L (98-107) 113 MEQ/L (98-107) Carbon Dioxide Level 30.8 MEQ/L (21.0-32.0) 31.3 MEQ/L (21.0-32.0) 28.4 MEQ/L (21.0-32.0) Anion Gap 4 MEQ/L (5-15) 6 MEQ/L (5-15) 7 MEQ/L (5-15) Estimat Glomerular Filtration Rate 101 ML/MIN (>89) 111 ML/MIN (>89) 110 ML/MIN (>89) Protein Corrected Calcium 8.5 MG/DL (8.5-10.1) Phosphorus Level 4.4 MG/DL (2.5-4.9) Vancomycin Level Trough 18.4 MCG/ML (5.0-10.0) CSF Glucose 80 MG/DL (40-80) CSF Total Protein 27.5 MG/DL (15.0-45.0) Result Diagram: 08/02/17 0545 08/02/17 0545 Microbiology Microbiology Date/Time Source Procedure Growth Status 08/01/17 13:52 Blood Peripheral Aerobic Blood Culture - Preliminary NO GROWTH IN 1 DAY Resulted 08/01/17 13:52 Blood Peripheral Anaerobic Blood Culture - Preliminary NO GROWTH IN 1 DAY Resulted 08/01/17 13:45 Blood Peripheral Aerobic Blood Culture - Preliminary NO GROWTH IN 1 DAY Resulted 08/01/17 13:45 Blood Peripheral Anaerobic Blood Culture - Preliminary NO GROWTH IN 1 DAY Resulted 08/02/17 15:15 Cerebral Spinal Fluid Lumbar Puncture Gram Stain Pending Received 08/02/17 15:15 Cerebral Spinal Fluid Lumbar Puncture CSF Culture Pending Received Imaging Last Impressions Chest X-Ray 08/02/17 0600 Signed Impressions: Service Date/Time: July 04:30 - CONCLUSION: Unchanged small left effusion with bibasilar infiltrates more pronounced on the left. Oumar Bray Jr., MD Head CT 07/27/17 0600 Signed Impressions: Service Date/Time: Thursday, July 27, 2017 13:39 - CONCLUSION: 1. Decrease in ventricular size since July 25. Extensive low attenuation and swelling in both occipital lobes and also in the periventricular region, basal ganglia and focally in the right occipital lobe. Differential diagnosis includes edema or evolving infarcts. There is mass effect on the brainstem and posterior fossa with effacement of the fourth ventricle. Ananda Messina MD Abdomen X-Ray 07/27/17 0000 Signed Impressions: Service Date/Time: Thursday, July 27, 2017 20:37 - CONCLUSION: NG tube coiled in the lower thoracic esophagus. Oumar Bray Jr., MD Head/Brain Mag Res Venography 07/25/17 0000 Signed Impressions: Service Date/Time: Tuesday, July 25, 2017 19:54 - CONCLUSION: Patent dural sinuses. Lonnie Munguia MD Brain MRI 07/25/17 0000 Signed Impressions: Service Date/Time: Tuesday, July 25, 2017 10:37 - CONCLUSION: Worsening brain appearance with developing hydrocephalus which is presumably related to increasing edema in the posterior fossa. See above discussion. Lonnie Lock MD Neck Magnetic Resonance Angiography 07/21/17 0000 Signed Impressions: Service Date/Time: Friday, July 21, 2017 08:40 - CONCLUSION: No acute neck arteriovascular abnormality is identified. There is no significant stenosis within either internal carotid artery. Lonnie Ross MD Head Magnetic Resonance Angiography 07/21/17 Signed Impressions: Service Date/Time: Friday, July 21, 2017 08:40 - CONCLUSION: No acute intracranial vascular abnormality is identified. Lonnie Ross MD Abdomen Ultrasound 07/21/17 Signed Impressions: Service Date/Time: Friday, July 21, 2017 15:47 - CONCLUSION: Cholelithiasis. No gallbladder wall thickening or pericholecystic fluid. Victor Manuel Barros MD Procedures * Intubation/mechanical ventilation * Ventriculostomy drain placement * Central line placement * Decompressive suboccipiatl craniotomy 07/26/17 . . Assessment and Plan Disease Oriented Problem List: (1) Stroke Comment: Evolving with obstructive hydrocephalus and cerebral edema requiring emergent ventriculostomy placement on 07/25/17 . (2) Acute respiratory failure (3) Seizure Comment: EEG negative on 07/25/17 but aeroplane pilot felt patient had seizure activity. Would not be surprising given level of cerebral edema. . (4) Failed back syndrome (5) COPD (chronic obstructive pulmonary disease) (6) Hyperkalemia (7) Acute kidney injury (8) Rhabdomyolysis (9) Tobacco abuse disorder (10) Chronic, continuous use of opioids (11) Depression (12) Hypertension (13) Hyperlipidemia Symptom Scale: (1) Pain 0-10 Scale: Unable to quantify Comment: Patient has long history of chronic pain from his back for which he has undergone multiple surgeries. Has been on chronic opioids for many years. Additional sources of pain might now also include recent craniotomy; cerebral edema; prisca hole placement; prolonged bedbound status; Garner catheter; vascular access catheters; restraints; orotracheal intubation; orogastric intubation. . (2) Encephalopathy 0-10 Scale: Unable to quantify Comment: Encephalopathy may be multifactorial. It appears he has had multiple strokes, cerebral edema, acute kidney injury, and electrolyte abnormalities all of which which are likely contributing to encephalopathy. . . (3) Dyspnea 0-10 Scale: Unable to quantify Comment: Currently managed with mechanical ventilation. . Pertinent Non-Medical Issues Psychosocial: Patient is well supported locally by his spouse. He has a biological son who lives in [place], [place], but who is here now. Spiritual: Holiness and spirituality have not played an important role in his life. Legal: Patient has a living will and designation of healthcare surrogate currently scanned into our electronic medical record. His is his surrogate. Ethical issues impacting care: Patient is currently incapacitated to make his own healthcare decisions. It is unclear if/when he will regain capacity to do so. . Important Contacts * Coty Weaver (spouse and health care surrogate) [phone] and [phone] * Blake Castillo (son) [phone] . Prognosis The patient's prognosis is now much worse with the obstructive hydrocephalus and cerebral edema requiring emergent ventriculostomy placement and then decompressive craniotomy. Should he survive the hospitalization, chances of meaningful recovery are much less. . Code Status: Full Code Plan * Decision Making: Patient is currently incapacitated to make his own healthcare decisions, unlikely that he will regain capacity. He has designated his spouse--Coty Weaver as healthcare surrogate. * FULL CODE * Goals of medical treatment: Goals currently remain aggressive, including FULL CODE, PEG tube placement. is verbalizing he may not survive this admission. She is not yet ready to consider transition transition. Will need medical team to continue to discuss prognosis, as she verbalizes not knowing what the "doctors are thinking." Will continue to clarify goals throughout hospital course. Symptoms (see symptom descriptions above): * Pain: Patient has multiple acute sources of pain as noted above, on top of his chronic back pain. He is currently sedated on Fentanyl 50mcg; pain appears adequately controlled. Current regimen appears to be effective. No further recommendations at this time. * Dyspnea: Patient is a long-term smoker and now unable to protect his airway. Dyspnea is currently being managed by mechanical ventilation. Was tolerating CPAP prior to his apparent seizure and subsequent craniotomy. Anticipate need for ongoing full vent support, and tracheostomy much more likely needed if family would wish aggressive goals. No further recommendations at this time. * Agitation: Agitation is probably from a multifactorial delirium. Patient had been managed with dexmedetomidine in MICU. Now sedated with propofol. Await to see if agitation increases or decreases should responsiveness return. * Encephalopathy multifactorial.: We will continue to address the fixable contributors such as metabolic issues and possible infection. Psychoactive drugs present in urine tox screen have probably all cleared by now. Main source of encephalopathy now the stroke and associated edema. Palliative care will continue to follow to assist with symptom management and to further clarify goals of medical treatment as the clinical course evolves. . . Attestation To help prompt me to consider important information that might be impacting today's encounter and assessment, information from prior notes written by myself or my colleagues may have been "brought forward" into today's note. My signature on this note, however, is an attestation that I personally performed the exam, history, and/or decision-making noted today, and, unless otherwise indicated, the interactions with patient, family, and staff as well as the review of records all occurred today. I also attest that the listed assessment and stated plan reflect my best clinical judgment today based on the combination of historical information, prior notes, and today's exam/ interactions. When time spent is documented, it refers only to time spent today by the signer, or if indicated, combined time spent today by collaborating physician/nurse practitioner. Lindsay Oro August 02, 2017 17:03
--- NOTE | 2017-08-02 17:26 | HHI.IDPN ---
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 Per pt had absolutely no complaints prior to his presentation, specifically no fever, no headache, no malaise, did not notice any mental status change either Per when she found him unresponsive his breathing was very shallow Pt presented afebrile with mildly elevated WBC of [address]/MRI brain were markedly abnormal with hydrocephalus and multiple lesions including basal ganglia and cerebellar b/l which are most consistent with embolic lesions or combinatin of embolic lesion and anoxia, less likely isolated anoxia. 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 He was at some point on pressors, but now off them Pt was in ARF due to rhabdomyolysis on presentation , was hydrated and his ARF resolved CSF was sent yday when the ventric was placed and it showed 33 WBC with a lot of hystiocytes w nl protein, glc.RBC were elevated G stain neg for org's 2 De cho w/o veg's Blx clx 4 sets are neg @ 1 and 5 days Overnight events reviewed No fevers No rash BCX positive for Selam Epiderm + secretions (nasal) On vent+ breathing over + posturing Antibiotics CFTX Lines Line sites with no e.o infection Past Medical History reviewed Allergies: Coded Allergies: No Known Allergies (Verified Allergy, Unknown, 07/20/17) Objective . Vital Signs Date Time Temp Pulse Resp B/P (MAP) Pulse Ox O2 Delivery O2 Flow Rate FiO2 08/02/17 15:54 96 35 08/02/17 14:00 84 08/02/17 12:00 98.7 92 20 155/85 (108) 96 08/02/17 12:00 97 08/02/17 12:00 35 08/02/17 10:00 97 08/02/17 08:14 35 08/02/17 08:14 99 35 08/02/17 08:00 98.6 74 22 115/55 (75) 97 08/02/17 08:00 70 08/02/17 08:00 40 08/02/17 06:00 90 08/02/17 04:00 40 08/02/17 04:00 99.5 75 20 98/58 (71) 100 08/02/17 04:00 75 08/02/17 03:32 99 40 08/02/17 02:00 65 08/02/17 01:30 98 40 08/02/17 00:00 40 08/02/17 00:00 100.0 78 20 87/50 (62) 100 08/02/17 00:00 73 08/01/17 22:00 82 08/01/17 20:58 99 50 08/01/17 20:00 87 08/01/17 20:00 99.3 78 23 105/57 (73) 98 08/01/17 20:00 50 08/01/17 18:00 75 08/02/17 08/02/17 08/03/17 15:00 23:00 07:00 Intake Total 207 ml Balance 207 ml IV Total 207 ml . Laboratory Tests Test 08/01/17 03:30 08/02/17 05:45 White Blood Count 19.9 TH/MM3 19.9 TH/MM3 Red Blood Count 3.50 MIL/MM3 3.14 MIL/MM3 Hemoglobin 10.8 GM/DL 9.8 GM/DL Hematocrit 32.8 % 29.8 % Mean Corpuscular Volume 93.7 FL 94.9 FL Mean Corpuscular Hemoglobin 30.8 PG 31.1 PG Mean Corpuscular Hemoglobin Concent 32.9 % 32.7 % Red Cell Distribution Width 14.0 % 14.1 % Platelet Count 446 TH/MM3 311 TH/MM3 Mean Platelet Volume 7.6 FL 7.7 FL Laboratory Tests Test 08/01/17 03:30 08/02/17 05:45 Blood Urea Nitrogen 30 MG/DL 26 MG/DL Creatinine 0.71 MG/DL 0.72 MG/DL Random Glucose 99 MG/DL 124 MG/DL Calcium Level 7.6 MG/DL 7.7 MG/DL Sodium Level 150 MEQ/L 148 MEQ/L Potassium Level 3.5 MEQ/L 3.6 MEQ/L Chloride Level 113 MEQ/L 113 MEQ/L Carbon Dioxide Level 31.3 MEQ/L 28.4 MEQ/L Anion Gap 6 MEQ/L 7 MEQ/L Estimat Glomerular Filtration Rate 111 ML/MIN 110 ML/MIN Phosphorus Level 4.4 MG/DL Microbiology Date/Time Source Procedure Growth Status 08/01/17 13:52 Blood Peripheral Aerobic Blood Culture - Preliminary NO GROWTH IN 1 DAY Resulted 08/01/17 13:52 Blood Peripheral Anaerobic Blood Culture - Preliminary NO GROWTH IN 1 DAY Resulted 08/01/17 13:45 Blood Peripheral Aerobic Blood Culture - Preliminary NO GROWTH IN 1 DAY Resulted 08/01/17 13:45 Blood Peripheral Anaerobic Blood Culture - Preliminary NO GROWTH IN 1 DAY Resulted 08/02/17 15:15 Cerebral Spinal Fluid Lumbar Puncture Gram Stain - Final Resulted 08/02/17 15:15 Cerebral Spinal Fluid Lumbar Puncture CSF Culture Pending Resulted Imaging Last Impressions Chest X-Ray 07/31/17 0600 Signed Impressions: Service Date/Time: Monday, July 31, 2017 05:14 - CONCLUSION: 1. Basilar airspace disease, left greater than right similar to July 29. Support apparatus unchanged. Ananda Messina MD Head CT 07/27/17 0600 Signed Impressions: Service Date/Time: Thursday, July 27, 2017 13:39 - CONCLUSION: 1. Decrease in ventricular size since July 25. Extensive low attenuation and swelling in both occipital lobes and also in the periventricular region, basal ganglia and focally in the right occipital lobe. Differential diagnosis includes edema or evolving infarcts. There is mass effect on the brainstem and posterior fossa with effacement of the fourth ventricle. Ananda Messina MD Abdomen X-Ray 07/27/17 0000 Signed Impressions: Service Date/Time: Thursday, July 27, 2017 20:37 - CONCLUSION: NG tube coiled in the lower thoracic esophagus. Oumar Bray Jr., MD Head/Brain Mag Res Venography 07/25/17 0000 Signed Impressions: Service Date/Time: Tuesday, July 25, 2017 19:54 - CONCLUSION: Patent dural sinuses. Lonnie Munguia MD Brain MRI 07/25/17 0000 Signed Impressions: Service Date/Time: Tuesday, July 25, 2017 10:37 - CONCLUSION: Worsening brain appearance with developing hydrocephalus which is presumably related to increasing edema in the posterior fossa. See above discussion. Lonnie Lock MD Neck Magnetic Resonance Angiography 07/21/17 0000 Signed Impressions: Service Date/Time: Friday, July 21, 2017 08:40 - CONCLUSION: No acute neck arteriovascular abnormality is identified. There is no significant stenosis within either internal carotid artery. Lonnie Ross MD Head Magnetic Resonance Angiography 07/21/17 0000 Signed Impressions: Service Date/Time: Friday, July 21, 2017 08:40 - CONCLUSION: No acute intracranial vascular abnormality is identified. Lonnie Ross MD Abdomen Ultrasound 07/21/17 0000 Signed Impressions: Service Date/Time: Friday, July 21, 2017 15:47 - CONCLUSION: Cholelithiasis. No gallbladder wall thickening or pericholecystic fluid. Victor Manuel Barros MD Physical Exam CONSTITUTIONAL/GENERAL: This is an obese elderly patient, in no apparent distress. On vent TUBES/LINES/DRAINS: SKIN: No jaundice, rashes, or lesions. Skin temperature appropriate. Not diaphoretic. HEAD: Ventric in place R parietal area with clear CSF EYES: Pupils equal and round and reactive. Extraocular motions intact. No scleral icterus. No injection or drainage. Fundi not examined. ENT: Hearing not tested Nose without bleeding or purulent drainage. Throat without visible erythema, exudates, masses, or lesions. Orally intubated NECK: Trachea midline. Supple, nontender. No palpable thyroid enlargement or nodularity. CARDIOVASCULAR: Regular rate and rhythm without murmurs, gallops, or rubs. No JVD. Peripheral pulses symmetric. RESPIRATORY/CHEST: Symmetric, unlabored respirations. Clear to auscultation. Breath sounds equal bilaterally. No wheezes, rales, or rhonchi. GASTROINTESTINAL: Abdomen soft, non-tender, nondistended. GENITOURINARY: Without palpable bladder distension. Garner catheter in place with clear yellow urine. + scrotum edema MUSCULOSKELETAL: Extremities without clubbing, cyanosis, remains quite edematous. No joint tenderness or effusion noted. No calf tenderness. No mottling or clubbing. NEUROLOGICAL: Unresponsive PSYCHIATRIC: Unable to assess Assessment & Plan Remarks Abnormal CSF - no r/o meningoencephalitis - probably combination of embolic strokes and anoxia t - Acute VDRF ARF 2/2 rhabdo: resolved New fever - resolved Likely PNA: sputum purulent - clx with nl resp olga lidia High grade Staph epi bacteremia Leukocytosis - can be from steroids Recs: Continue Ceftriaxone IV for PNA Continue Vanco IV (target 15-20) for possible ventriculitis. Follow CSF cultures from ventric. monitor repeat blood clx If diarrhea send stool Cdiff. Mayuri Fernandez RN, MD August 02, 2017 17:26
[2017-08-02 18:17] LABS: SUPERNATE COLOR TUBE #1 CLEAR (CLEAR)
[2017-08-02 18:18] LABS: CSF EOSINOPHILS 10 %; CSF LYMPHOCYTES 30 %; CSF NEUTROPHILS 60 %; RBC TUBE #1 346 /MM3; WBC TUBE #1 3 /MM3 (0-10)
[2017-08-03] VITALS (17 sets, daily range): BP systolic 122–154; BP diastolic 63–74; PULSE 69–93; RESP 20–23; TEMP 98.5–100.1; O2SAT 95–99
[2017-08-03] MEDS: hydrALAZINE HCL 50 MG TAB PO SCH ×3 (03:22→17:56)
[2017-08-03] MEDS ORDERED: PHARMACY ORDERED LAB ONE (03:45)
[2017-08-03] MEDS: CHLORHEXIDINE GLUCONATE 2 % 1 PACK (2 CLOTHS) TOP SCH (04:00)
[2017-08-03 04:08] LABS: HEMATOCRIT 32.5 % (39.0-51.0); HEMOGLOBIN 10.7 GM/DL (13.0-17.0); MEAN CELL VOLUME 94.1 FL (80.0-100.0); MEAN CORPUSCULAR HEMOGLOBIN 31.1 PG (27.0-34.0); MEAN PLATELET VOLUME 8.6 FL (7.0-11.0); PLATELET COUNT 378 TH/MM3 (150-450); RED BLOOD COUNT 3.45 MIL/MM3 (4.50-5.90); RED CELL DISTRIBUTION WIDTH 14.1 % (11.6-17.2); WHITE BLOOD COUNT 21.9 TH/MM3 (4.0-11.0)
[2017-08-03 04:34] LABS: BICARBONATE 27.5 MEQ/L (21.0-32.0); CALCIUM 8.2 MG/DL (8.5-10.1); CREATININE 0.7 MG/DL (0.60-1.30)
[2017-08-03 04:35] LABS: VANCOMYCIN TROUGH 20.3 MCG/ML (5.0-10.0)
[2017-08-03] MEDS: VANCOMYCIN INJ 1,750 MG in SODIUM CHLORID 0.9% 500 ML INJ 500 ML IV SCH (04:53)
[2017-08-03] MEDS: INSULIN ASPART SUPPLEMENTAL SCALE SQ SCH ×3 (05:08→17:56)
--- NOTE | 2017-08-03 08:04 | HHI.PR ---
Subjective Remarks postop Objective Vital Signs Date Time Temp Pulse Resp B/P (MAP) Pulse Ox O2 Delivery O2 Flow Rate FiO2 08/03/17 06:00 69 08/03/17 04:00 40 08/03/17 04:00 89 08/03/17 04:00 100.1 89 23 149/68 (95) 98 08/03/17 03:42 97 35 08/03/17 02:00 78 08/03/17 00:00 40 08/03/17 00:00 99.7 82 20 135/74 (94) 99 08/03/17 00:00 85 08/02/17 23:40 98 35 08/02/17 22:00 82 08/02/17 21:30 40 08/02/17 21:30 99.9 88 20 157/78 (104) 98 08/02/17 21:16 100 35 08/02/17 18:00 72 08/02/17 16:00 80 08/02/17 16:00 98.7 88 30 121/66 (84) 97 08/02/17 16:00 35 08/02/17 15:54 96 35 08/02/17 14:00 84 08/02/17 12:00 98.7 92 20 155/85 (108) 96 08/02/17 12:00 97 08/02/17 12:00 35 08/02/17 10:00 97 08/02/17 08:14 35 08/02/17 08:14 99 35 I/O 08/02/17 08/02/17 08/02/17 08/03/17 08/03/17 08/03/17 07:00 15:00 23:00 07:00 15:00 23:00 Intake Total 1355 ml 207 ml 100 ml 420 ml Output Total 2084 ml 4400 ml 2461 ml Balance -729 ml 207 ml -4300 ml -2041 ml IV Total 715 ml 207 ml 100 ml 420 ml Tube Feeding 640 ml Output Urine Total 2050 ml 4400 ml 1900 ml Gastric Drainage Total 550 ml Drainage Total 34 ml 11 ml # Bowel Movements 2 0 0 Result Diagram: 08/03/17 0245 08/03/17 0245 Objective Remarks on vent on sedatives fentanyl small dose pupil= unresponsive some movements toes down Assessment and Plan Assessment and Plan imp a lot of edema increased from 07/21 i started steroids high dose in case encephalitis echo andlabs and eeg neg csf some histiocytes ow underwhelming on acyclovir i sid id the casethought noninfectious hsv pend critically ill ct by nicole ferguson pend 07/30/17 not much new would like to get mri at some point to gauge where we are all csf neg cx neg bands neg labs neg i sid nurse and 08/01/17 no change \ mri will be helpful here to decide course 08/03/17 looks little better mri when able check Judd Ewing MD August 03, 2017 08:04
[2017-08-03] MEDS: RESP: BUDESONIDE 0.5 MG/2 ML NEB NEB SCH ×2 (08:20→19:33)
[2017-08-03] MEDS: RESP: ALBUTEROL 2.5 MG/3 ML NEB (PRN) INH (08:20)
[2017-08-03] MEDS: ARTIFICIAL TEARS OPTH SOLN 15 ML BTL EACH EYE SCH ×3 (08:33→17:56)
[2017-08-03] MEDS: FUROSEMIDE 40 MG/4 ML VIAL IV PUSH SCH ×2 (08:33→17:56)
[2017-08-03] MEDS: SODIUM CHLORIDE 0.9% FLUSH 10 ML FLUSH IV FLUSH SCH ×2 (08:33→21:48)
[2017-08-03] MEDS: CHLORHEXIDINE 0.12% (ORAL KIT) 15 ML CUP MT SCH ×2 (08:34→20:00)
[2017-08-03] MEDS: POLYETHYLENE GLYCOL 17 GM PKG PO SCH ×2 (08:34→21:48)
[2017-08-03] MEDS: LACTULOSE SYRUP 20 GM/30 ML CUP PO SCH (08:34)
[2017-08-03] MEDS: amLODIPine BESYLATE 5 MG TAB PO SCH ×2 (08:34→21:48)
[2017-08-03] MEDS: LISINOPRIL 10 MG TAB PO SCH (08:34)
[2017-08-03] MEDS: FAMOTIDINE 20 MG TAB PO SCH ×2 (08:34→21:48)
[2017-08-03] MEDS: DOCUSATE SODIUM 50 MG/SENNA 8.6 MG TAB PO SCH ×2 (08:34→21:49)
[2017-08-03] MEDS: LACTOBACILLUS ACIDOPHILUS TAB PO SCH ×3 (08:34→17:56)
[2017-08-03] MEDS: levETIRAcetam INJ 750 MG in SODIUM CHLORIDE 0.9% INJ 100 ML IV SCH ×2 (09:19→22:44)
--- NOTE | 2017-08-03 09:25 | HHI.CCPN ---
Subjective Remarks/Hospital Course This is a 66-year-old male. Date of admission 07/20/2017. Past medical history includes hypertension, hyperlipidemia, COPD with ongoing tobacco abuse, peptic ulcer disease and anxiety. He also has history of lumbar stenosis, degenerative joint disease of the back and cervical spine. He presents to [facility] with the following history. 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 According to his at bedside, patient is drug tested. Patient returned home from work on Sunday after his 30 day work schedule. Patient was changing the tire of a bike friend yesterday. Patient returned home in no acute distress. Today, patient was tired and was sleeping all day. Initially patient had similar symptoms at lunch. When the attempted to wake him up later this evening patient be was nonresponsive with a weak pulse. She attempted to use ammonia without response. At that time EMS was called and patient was transferred to [facility]. Patient was noted to be an acute change with a creatinine of 3.8. Baseline is normal. Potassium is 7.4 without EKG changes. Patient received bicarbonate, insulin/D50, calcium and Kayexalate in the ED. Repeat potassium 3 hours. Patient is making urine and appears concentrated. UA is pending. Patient leukocytosis 13,000. CPK was 5000. Lactic acid was 2.6. Urine drug screen revealed positive for opiates, amphetamines, benzodiazepines, THC and cocaine. Head CT is currently pending. Due to altered mental status patient was admitted after receiving 20 mg etomidate and 100 mg succinylcholine by ED physician. Patient also received 4 mg of midazolam and after which patient became hypotensive is currently receiving 3 L normal saline wide open. Head CT is currently pending. Patient received clindamycin along with piperacillin/ tazobactam in the ED. 07/21: Overnight the patient required to protamine infusion low-dose currently being weaned off. The patient continues on fentanyl and propofol infusion for ventilator synchrony. Patient's undergoing MRI evaluation results pending. The patient was noted to have significant elevation in creatinine kinase the patient is bolused 1 L IV fluids increase in normal saline 200 cc/hr. Lactic acid downtrending will continue to trend creatinine noted to be decreasing. 07/22: Currently afebrile. Off all vasopressors. We will switch to LR at 200 cc an hour. Recheck BMP this afternoon. Moving all 4 x-rays spontaneously right upper extremity less. Opens eyes but not following commands. Positive gag and corneal reflex. Subjective: 07/23: Currently on dexmedetomidine drip at 0.7 mg/kg/h. Minimal response to distinguish. Will hold at the present time and reassess neurological condition. EEG showed no epileptiform activity. Tolerating tube feeding. No bowel movement since admission. Currently afebrile. 07/24: Per nursing staff patient was off sedation over the night and he woke up and followed some simple commands, but due to agitation, hypertension and tachycardia patient was restarted on sedation. He is currently on Precedex at 1 , tolerating CPAP, sedated. T-max of 99. I/O 3029/1451. 07/25: No events over the night. This morning while attempting CPAP trial patient became rigid, unresponsive, with gaze deviation, tachypneic tachycardic and hypertensive, suggesting seizure activity. Patient was immediately given Ativan 2 mg 1 with resolution of episode. Neurology was contacted and plan for EEG and CT head as well as propofol infusion. No family present at bedside. T-max of 100.7 over the night. Urine output 2300 mL's over the last 24 hours. 07/26: EVD placed yesterday for declining mental status with hydrocephalus and severe cerebellar edema. this AM, extensor posturing. supratentorial ICPs controlled, but cerebellar edema persists. discussed with Dr. Castillo: csf could be consistent with encephalitis. d/w Dr. Barrow: will need posterior fossa decompression. 07/27: no improvements in mental status. s/p suboccipital crani yesterday. remains intermittently on cardene and levophed to maintain cpp. ICP controlled. brain biopsies pending. 07/28: Osmolality suitably concentrated. ICP well controlled. Maintaining head up position. On attempted CPAP trial patient has 25 second periods of apnea. Unstable neurological status we will not stress him with extended spontaneous breathing trials. 07/29: Requiring Cardene still to maintain systolic blood pressure less than 160. Markedly edematous and will need to start active diuresis. No change in neurologic function. Apnea episodes persist. 07/30: off cardene. still grossly volume overloaded. neuro exam remains poor. 07/31: no improvement in mental status. wbc slight uptrend. afebrile. awaiting MRI for prognostication and to re-evaluate edema. adequate diuresis yesterday. 08/01: encephalopathy persists. wbc uptrending but afebrile. unable to obtain MRI due to elevated ICP, cannot tolerate lying flat. would benefit from MRI when able. diuresing well. 08/02: low grade fevers persist. wbc still high. on empiric abx. ventric has been in x 7 days: with fever and poor neurologic exam, will send CSF for cell count and culture. no change in mental status. 08/03: CSF cultures pending. no change in neuro exam. wbc still high and uptrending. challenging drain, currently at [id number] Objective Vital Signs Date Time Temp Pulse Resp B/P (MAP) Pulse Ox O2 Delivery O2 Flow Rate FiO2 08/03/17 08:20 95 35 08/03/17 08:00 98.7 88 20 154/72 (99) Intake and Output 08/03/17 08/03/17 08/04/17 08:00 16:00 00:00 Intake Total 420 ml Output Total 2461 ml Balance -2041 ml Result Diagram: 08/03/17 0245 08/03/17 0245 Imaging Last 24 hours Impressions Chest X-Ray 07/24/17 0600 Signed Impressions: Service Date/Time: Monday, July 24, 2017 03:41 - CONCLUSION: Patchy diffuse interstitial prominence and pulmonary vascular prominence unchanged. Anukr Shields MD Last Impressions Chest X-Ray 07/23/17 0600 Signed Impressions: Service Date/Time: Sunday, July 23, 2017 04:10 - CONCLUSION: Lungs grossly clear. Tubes and catheter in good position. Ankur Shields MD Neck Magnetic Resonance Angiography 07/21/17 0000 Signed Impressions: Service Date/Time: Friday, July 21, 2017 08:40 - CONCLUSION: No acute neck arteriovascular abnormality is identified. There is no significant stenosis within either internal carotid artery. Lonnie Ross MD Head Magnetic Resonance Angiography 07/21/17 0000 Signed Impressions: Service Date/Time: Friday, July 21, 2017 08:40 - CONCLUSION: No acute intracranial vascular abnormality is identified. Lonnie Ross MD Brain MRI 07/21/17 0000 Signed Impressions: Service Date/Time: Friday, July 21, 2017 08:40 - CONCLUSION: Multifocal areas of restricted diffusion/recent ischemia within the centrum semiovale bilaterally, bilateral occipital lobes, bilateral basal ganglia, bilateral temporal lobes, and bilateral cerebellar hemispheres. Findings could be related to global anoxic event or less likely embolic phenomenon. Lonnie Ross MD Abdomen Ultrasound 07/21/17 0000 Signed Impressions: Service Date/Time: Friday, July 21, 2017 15:47 - CONCLUSION: Cholelithiasis. No gallbladder wall thickening or pericholecystic fluid. Victor Manuel Barros MD Head CT 07/20/17 2225 Signed Impressions: Service Date/Time: Friday, July 21, 2017 00:53 - CONCLUSION: Abnormal brain appearance. Recommend MRI for further evaluation Lonnie Lock MD Objective Remarks General - middle-aged gentleman, intubated, ill-appearing, unresponsive HEENT - pupils equal, dilated, reactive, sclerae anicteric, neck supple, no nuchal rigidity. CV - normal rate, regular rhythm. sinus. no JVD Chest - equal chest rise. full mechanical support. PRVC. peep 5. Decreased breath sounds both bases. Abdomen - soft, non-tender, non-distended, no guarding. Skin - no rashes, no cyanosis, multiple tattoos bilateral upper extremities and thorax Extremities - warm and well perfused, no edema, + peripheral pulses, no clubbing Neuro - intubated via tracheostomy, off sedation, unresponsive, pupils equal and reactive, extensor posturing. A/P Assessment and Plan Assessment: 66yM with acute encephalopathy and severe cerebellar edema of unclear etiology. very critically ill with ongoing life-threatening malignant cerebral edema in the posterior fossa. s/p suboccipital crani for decompression 07/26 and brain biopsies. continue hyperosmolar therapy and supportive care. Unlikely to have a favorable outcome. very poor prognosis. remains critically ill. goals remain aggressive. Neuro/Psych: Toxic metabolic encephalopathy Polysubstance abuse disorder - UDS positive for opiates, benzos, amphetamines, THC and cocaine Depression Anxiety disorder Possible hypoxic ischemic encephalopathy Concern for new onset seizure Malignant Cerebellar edema Elevated ICP s/p suboccipital crani /10 for decompression frequent neuro checks goal RASS -2. neurology: Dr. Castillo following neurosurgery: Dr. Barrow following. hyperosmolar therapy serial sodiums, osms Hold 3% nacl, osmolality 155. CT brain 07/21 There is patchy mild diminished attenuation in centrum semi-ovale bilaterally. There is mild heterogeneous diminished density in the genu region of internal capsules and globus pallidus bilaterally. There is vague diminished density in the cerebellar hemispheres bilaterally. There is no evidence of intracranial mass or hemorrhage. There is no abnormal extra-axial fluid accumulation or shift present. 07/21 MRI brain-Multifocal areas of restricted diffusion/recent ischemia within the centrum semiovale bilaterally, bilateral occipital lobes, bilateral basal ganglia, bilateral temporal lobes, and bilateral cerebellar hemispheres. Findings could be related to global anoxic event or less likely embolic phenomenon. 07/21 EEG revealed no epileptic activity 07/21-MRA brain/neck -no acute findings UDS + opiates, amphetamines, benzodiazepines, THC and cocaine CSF studies all negative. brain biopsies negative. EVD placed 07/25 by [facility]. CV: History of essential hypertension Hyperlipidemia Lactic acidosis -resolved Sinus bradycardia- secondary to elevated ICP- resolved Holding valsartan 320 mg p.o. daily due to hypotension/acute kidney injury Holding rosuvastatin 10 mg p.o. q. Sunday/Sunday/Sunday due to elevated LFTs. Resume when clinically indicated. amlodipine 5mg po BID lisinopril 10mg daily. TTE results reviewed, LV size normal, EF of 55%. Resp: Acute hypoxemic and hypercarbic respiratory failure Tobacco use disorder Continue [facility] Ventilator bundle Albuterol/ipratropium aerosols every 6 hours with albuterol aerosol every 2 hours as needed dyspnea budesonide 0.5/2 1 inhalation twice daily since on budesonide/formoterol 160/ 4.5 1 puff twice daily at home along with albuterol inhaler twice daily no weaning of mechanical ventilation until mental status and ICP improves wean fio2 for goal spo2 > 90% hob elevated Tracheostomy 07/28. GI: Elevated transaminases -slowly trending down Rhabdomyolysis -improving, urine output is adequate, CPK trending down Cholelithiasis CK levels-5000->82648->20K --> 5930 --> 3370 07/21 Liver ultrasound revealed cholelithiasis Hepatitis panel-negative Tube feeding with Neutra hep goal 45 cc an hour Lansoprazole for GI prophylaxis Docusate/senna 1 tablet twice daily for bowel regimen will need G tube. GI consulted. : Metabolic alkalosis d/c adler today. continue forced diuresis. Endo: Sliding scale insulin with NovoLog with Accu-Cheks every 6 hours to maintain euglycemia/low regimen Hemoglobin A1c documented at 6.1 Renal: Acute kidney injury -resolved Rhabdomyolysis resolved. Acute intravascular Volume overload -persistent. lasix 40mg iv q12h Monitor urine output Accurate I's and O's Renal ultrasound revealed no hydronephrosis bilaterally 5/5 Urine eosinophils negative. Avoid nephrotoxic drugs Heme: Normocytic anemia Monitor CBC daily. Follow trend hold SQH ID: Staph bacteremia Received piperacillin/tazobactam and clindamycin ED for possible aspiration Blood cultures 2, UA, sputum / all pending/no growth to date Strep pneumo, Legionella urine antigens-negative ID involved and following. on Rocephin for staph in 2/2 bottles blood cultures. Vancomycin CSF cultures pending, currently NGTD. FEN: Hypophosphatemia -resolved Electrolyte protocol MSK: History of multiple lumbar/cervical spine surgeries PT evaluate and treat Access adler: will d/c today. 07/25 EVD Prophylaxis -GI -lansoprazole -DVT -SCD/ Heparin SQ Overall impression: This gentleman remains critically ill with a pronounced neurologic injury. challenging EVD. very poor prognosis and poor neurologic exam. continue eval for infectious concern with wbc and fevers. need to look towards placement once EVD is challenged. Paulo Boswell MD August 03, 2017 09:25
--- NOTE | 2017-08-03 09:32 | PD.CARD.PN ---
Subjective Subjective Remarks trached, sedated Objective Medications Current Medications Medications (Trade) Dose Ordered Sig/Claudia Route Start Time Stop Time Status Last Admin (NS Flush) 2 ml UNSCH PRN IV FLUSH 07/21/17 00:00 (NS Flush) 2 ml BID IV FLUSH 07/21/17 09:00 08/03/17 08:33 (Tears Naturale Opth Soln) 1 drop TID EACH EYE 07/21/17 09:00 08/03/17 08:33 (Zofran Inj) 4 mg Q6H PRN IV PUSH 07/21/17 00:00 08/02/17 21:36 (Albuterol Neb) 2.5 mg Q2HR NEB PRN INH 07/21/17 00:00 08/03/17 08:20 ([facility] Nursing Information) 1 Q361D XX 07/21/17 00:00 07/21/17 00:00 (Chlorhexidine 2% Cloth) Taper DAILY@04 TOP 07/21/17 04:00 07/17/18 03:59 07/25/17 04:00 (Chlorhexidine 2% Cloth) 3 pack UNSCH PRN TOP 07/21/17 00:00 (Dilia-Colace) 1 tab BID PO 07/21/17 09:00 08/02/17 21:00 (Milk Of Magnesia Liq) 30 ml Q12H PRN PO 07/21/17 00:00 (Senokot) 17.2 mg Q12H PRN PO 07/21/17 00:00 (Dulcolax Supp) 10 mg DAILY PRN RECTAL 07/21/17 00:00 (Lactulose Liq) 30 ml DAILY PRN PO 07/21/17 00:00 (Peridex 0.12% Liq) 15 ml BID@08,20 MT 07/21/17 08:00 08/03/17 08:34 (D50w (Vial) Inj) 50 ml UNSCH PRN IV PUSH 07/21/17 00:00 (Glucagon Inj) 1 mg UNSCH PRN OTHER 07/21/17 00:00 (NovoLOG SUPPLEMENTAL SCALE) 1 Q6HR SQ 07/21/17 00:00 07/30/17 17:49 (Pulmicort Respule Neb) 0.5 mg Q12HR NEB NEB 07/21/17 08:00 08/03/17 08:20 (Brethine Inj) 1 mg UNSCH PRN SQ 07/21/17 00:30 (Lactulose Liq) 30 ml DAILY PO 07/22/17 09:00 08/01/17 09:17 (Apresoline Inj) 10 mg Q1H PRN IV PUSH 07/22/17 09:45 07/24/17 19:51 (Nitroglycerin 2% Oint) 2 inch Q6H PRN TOPICAL 07/22/17 09:45 (Miralax) 17 gm BID PO 07/23/17 21:00 08/01/17 09:17 Levetriacetam 750 mg/Sodium Chloride 107.5 ml @ 420 mls/hr Q12H IV 07/25/17 10:00 08/03/17 09:19 (Pepcid) 20 mg Q12HR PO 07/25/17 21:00 08/02/17 21:00 (Brethine Inj) 1 mg UNSCH PRN SQ 07/26/17 09:45 Propofol 100 ml @ 3.102 mls/ hr TITRATE PRN IV 07/26/17 11:00 08/02/17 06:43 Fentanyl Citrate 250 ml @ 5 mls/hr TITRATE PRN IV 07/26/17 11:00 08/02/17 17:02 (Lactinex) 1 tab TID PO 07/28/17 18:00 08/02/17 17:00 (Norvasc) 5 mg BID PO 07/29/17 09:00 08/02/17 21:00 (Lasix Inj) 40 mg BID@18 IV PUSH 07/29/17 09:00 08/03/17 08:33 (Prinivil) 10 mg DAILY PO 07/29/17 09:00 08/02/17 09:29 (Apresoline) 50 mg Q8H PRN PO 07/30/17 09:15 Pharmacy Profile Note 0 ml @ 0 mls/hr UNSCH OTHER 07/30/17 13:00 Ceftriaxone Sodium 2000 mg/ Sodium Chloride 100 ml @ 200 mls/hr Q24H IV 07/30/17 14:00 08/02/17 13:22 Vancomycin HCl 1750 mg/Sodium Chloride 517.5 ml @ 250 mls/hr Q12H IV 07/30/17 16:00 08/03/17 04:53 (Apresoline) 100 mg Q8H PO 07/30/17 18:00 08/03/17 03:22 ([facility] Nursing Information) D/C ICU ELECTROLYTE ORDERS... UNSCH PRN .XX 08/01/17 08:30 ([facility] Nursing Information) ICU - CALL ORDERING PHYSIC... UNSCH PRN .XX 08/01/17 08:30 Potassium Chloride 100 ml @ 25 mls/hr UNSCH PRN IV 08/01/17 08:30 (K-Lyte Cl Eff) 50 meq UNSCH PRN PO 08/01/17 08:30 Potassium Chloride 100 ml @ 50 mls/hr UNSCH PRN IV 08/01/17 08:30 Magnesium Sulfate 4 gm/Sodium Chloride 108 ml @ 54 mls/hr UNSCH PRN IV 08/01/17 08:30 Magnesium Sulfate 2 gm/Sodium Chloride 104 ml @ 52 mls/hr UNSCH PRN IV 08/01/17 08:30 (Mag-Ox) 800 mg UNSCH PRN PO 08/01/17 08:30 Sodium Phosphate 30 mmol/Sodium Chloride 260 ml @ 43.333 mls/ hr UNSCH PRN IV 08/01/17 08:30 (K-Phos) 2,000 mg UNSCH PRN PO 08/01/17 08:30 Potassium Phosphate 30 mmol/ Sodium Chloride 260 ml @ 43.333 mls/ hr UNSCH PRN IV 08/01/17 08:30 (Diamox Inj) 500 mg ONCE ONCE IV PUSH 08/03/17 09:30 08/03/17 09:31 UNV Vital Signs / I&O Vital Signs Date Time Temp Pulse Resp B/P (MAP) Pulse Ox O2 Delivery O2 Flow Rate FiO2 08/03/17 09:15 35 08/03/17 08:20 95 35 08/03/17 08:00 40 08/03/17 08:00 98.7 88 20 154/72 (99) 97 08/03/17 08:00 88 08/03/17 06:00 69 08/03/17 04:00 40 08/03/17 04:00 89 08/03/17 04:00 100.1 89 23 149/68 (95) 98 08/03/17 03:42 97 35 08/03/17 02:00 78 08/03/17 00:00 40 08/03/17 00:00 99.7 82 20 135/74 (94) 99 08/03/17 00:00 85 08/02/17 23:40 98 35 08/02/17 22:00 82 08/02/17 21:30 40 08/02/17 21:30 99.9 88 20 157/78 (104) 98 08/02/17 21:16 100 35 08/02/17 18:00 72 08/02/17 16:00 80 08/02/17 16:00 98.7 88 30 121/66 (84) 97 08/02/17 16:00 35 08/02/17 15:54 96 35 08/02/17 14:00 84 08/02/17 12:00 98.7 92 20 155/85 (108) 96 08/02/17 12:00 97 08/02/17 12:00 35 08/02/17 10:00 97 I/O 08/02/17 08/02/17 08/02/17 08/03/17 08/03/17 08/03/17 07:00 15:00 23:00 07:00 15:00 23:00 Intake Total 1355 ml 207 ml 100 ml 420 ml Output Total 2084 ml 4400 ml 2461 ml Balance -729 ml 207 ml -4300 ml -2041 ml IV Total 715 ml 207 ml 100 ml 420 ml Tube Feeding 640 ml Output Urine Total 2050 ml 4400 ml 1900 ml Gastric Drainage Total 550 ml Drainage Total 34 ml 11 ml # Bowel Movements 2 0 0 Physical Exam GENERAL: SKIN: Warm and dry. HEAD: Normocephalic. EYES: No scleral icterus. No injection or drainage. NECK: Supple, trachea midline. No JVD or lymphadenopathy. CARDIOVASCULAR: Regular rate and rhythm without murmurs, gallops, or rubs. RESPIRATORY: Breath sounds equal bilaterally. No accessory muscle use. GASTROINTESTINAL: Abdomen soft, non-tender, nondistended. MUSCULOSKELETAL: No cyanosis, or edema. BACK: Nontender without obvious deformity. No CVA tenderness. Laboratory Laboratory Tests Test 08/02/17 15:15 08/03/17 02:45 08/03/17 09:10 CSF Volume (Tube 1) 3.0 ML CSF Supernatant Color (tube 1) CLEAR CSF WBC (Tube 1) 3 /MM3 CSF RBC (Tube 1) 346 /MM3 CSF Neutrophils 60 % CSF Lymphocytes 30 % CSF Eosinophils 10 % CSF Glucose 80 MG/DL CSF Total Protein 27.5 MG/DL White Blood Count 21.9 TH/MM3 Red Blood Count 3.45 MIL/MM3 Hemoglobin 10.7 GM/DL Hematocrit 32.5 % Mean Corpuscular Volume 94.1 FL Mean Corpuscular Hemoglobin 31.1 PG Mean Corpuscular Hemoglobin Concent 33.0 % Red Cell Distribution Width 14.1 % Platelet Count 378 TH/MM3 Mean Platelet Volume 8.6 FL Blood Urea Nitrogen 23 MG/DL Creatinine 0.70 MG/DL Random Glucose 101 MG/DL Calcium Level 8.2 MG/DL Sodium Level 145 MEQ/L Potassium Level 3.4 MEQ/L Chloride Level 109 MEQ/L Carbon Dioxide Level 27.5 MEQ/L Anion Gap 9 MEQ/L Estimat Glomerular Filtration Rate 113 ML/MIN Vancomycin Level Trough 20.3 MCG/ML Blood Gas Puncture Site LT RADIAL Blood Gas Patient Temperature 98.6 Blood Gas HCO3 25 mmol/L Blood Gas Base Excess 0.7 mmol/L Blood Gas Oxygen Saturation 94 % Arterial Blood pH 7.42 Arterial Blood Partial Pressure CO2 38 mmHg Arterial Blood Partial Pressure O2 90 mmHg Arterial Blood Oxygen Content 17.9 Vol % Arterial Blood Carboxyhemoglobin 1.3 % Arterial Blood Methemoglobin 1.3 % Blood Gas Hemoglobin 13.5 G/DL Oxygen Delivery Device VENTILATOR Blood Gas Ventilator Setting Blood Gas Inspired Oxygen 35 % Assessment and Plan Problem List: (1) Toxic metabolic encephalopathy ICD Codes: G92 - Toxic encephalopathy (2) Tetrahydrocannabinol (THC) use disorder, mild, abuse ICD Codes: F12.10 - Cannabis abuse, uncomplicated (3) Encephalopathy ICD Codes: G93.40 - Encephalopathy, unspecified (4) Stroke ICD Codes: I63.9 - Cerebral infarction, unspecified (5) Chronic, continuous use of opioids ICD Codes: F11.90 - Opioid use, unspecified, uncomplicated (6) Cocaine use ICD Codes: F14.90 - Cocaine use, unspecified, uncomplicated Assessment and Plan 1.) I am not sure if he is stable enough to undergo head and neck manipulation to undergo swapnil; he is intubated so i cant assess his ability to swallow; will consider swapnil if risk benefit ratio favors it, he is cleared by neurology and neurosurgery for head and neck manipulation and if findings may plant changer 2.) D/w Dr Epperson 07/28/17; agrees that swapnil will not change short term management and put patient at risk of neurologic injury from neck manipulation during swapnil, d/w nurse at bedside as well 3.) Will d/w ID and NS risks/benefits of swapnil; d/w at bedside 07/31/17; d/w MELINDA Stephens, @ neck manipulation for possible swapnil, he will d/w Dr Barrow to determine risk Navid Corrales MD August 03, 2017 09:32
--- NOTE | 2017-08-03 10:04 | HHI.NSPN ---
(Shakir Carroll) History Chief Complaint: multifocal infarct. (Shakir Carroll) Interval History 66-year-old obese gentleman who was admitted to [facility] intensive medical unit after presenting to the emergency room 5 days ago found unresponsive at home by . He was intubated and has been on ventilator support since his admission. Workup initially with CT and MRI scan of the brain revealed multifocal areas of infarct involving the bilateral supratentorial hemispheres as well as cerebellar hemispheres consistent with either embolic strokes or anoxia or hypoxia. His toxicology screen was positive for multiple drugs and polysubstance abuse including cocaine, cannabinoids, barbiturates, and opioids. He had a change in his neurologic status with posturing noted today and MRI scan obtained revealed progression of the bilateral cerebellar hemispheres strokes with obstruction of the fourth ventricle and associated hydrocephalus development. Neurosurgery was consulted for the hydrocephalus by the prosthetic aides teacher. 07/26/17: Pt sedated on Diprivan and Fentanyl drips. Not opening eyes. Pupils 3mm bilaterally NR bilaterally. Intubated. Ventriculostomy drain in place lowered to [address] Barrow with orders to increase to 5cmH20 in one hour. 07/30/17: Patient sedated with fentanyl and Diprivan drips. Not opening eyes. Trach in place. He is on CPAP. Ventriculostomy drain in place at 5 cmH20 draining clear CSF. 07/31/17: Pt sedated with Fentanyl and Diprivan. Opening eyes left more than right. Ventriculostomy drain in place at 47kdC85. ICP 15 draining clear CSF. 08/01/17: Pt on sedative drips Fentanyl and Diprivan. Pupils 4mm bilaterally reactive bilaterally. Ventriculostomy drain at 76maC60. ICP 8 currently. Draining clear CSF. 08/02/17: Pt on Fentanyl and Diprivan drip. He opens eyes to deep pain. Pupils 3mm bilaterally reactive bilaterally. Ventric in place at 15cm H20, draining Clear CSF. 08/03/17: Pt on very low dose Fentanyl. He opens his eyes to pain. Pupils 4mm bilaterally reactive bilaterally. Ventriculostomy in place at 64enX32. ICP 5. Sticks out tongue slightly to command. Not following in extremities but edematous. (Shakir Carroll) System Review Comments Not able to obtain given clinical condition. (Shakir Carroll) Exam Results Vital Signs Date Time Temp Pulse Resp B/P (MAP) Pulse Ox O2 Delivery O2 Flow Rate FiO2 08/03/17 09:15 35 08/03/17 08:20 95 08/03/17 08:00 98.7 88 20 154/72 (99) Intake and Output 08/03/17 08/03/17 08/04/17 08:00 16:00 00:00 Intake Total 420 ml Output Total 2461 ml Balance -2041 ml (Shakir Carroll) Physical Examination General: Pt sedated on low dose Fentanyl drips. Eyes: Pupils 4mm bilaterally reactive bilaterally. Resp: CTA bilaterally. Trach in place on PRVC A/C rate 20. Peep 5. FiO2 35%. Heart: NSR no murmurs Abd: Soft diminished bs. Skin: No cyanosis or erythema. Incision clean with meli in place. SCDs in place. Muscle: Pt has move of a flexion/attempt to localize to pain in upper chest. Neuro: Pt sedated on low dose fentanyl drips. Opening eyes some to pain. Pupils 4mm and reactive bilaterally. Slightly sticks out tongue to command. Not following in extremities which are edematous. Appears to flex/localize with UEs to pain right more than left. Ventriculostomy drain in place at 50ckP88 draining clear CSF. ICP 5. (Shakir Carroll) Lab, Micro, Other Results Last Impressions Chest X-Ray 08/02/17599 Signed Impressions: Service Date/Time: July 04:30 - CONCLUSION: Unchanged small left effusion with bibasilar infiltrates more pronounced on the left. Oumar Bray Jr., MD Head CT 07/27/17599 Signed Impressions: Service Date/Time: Thursday, July 27, 2017 13:39 - CONCLUSION: 1. Decrease in ventricular size since July 25. Extensive low attenuation and swelling in both occipital lobes and also in the periventricular region, basal ganglia and focally in the right occipital lobe. Differential diagnosis includes edema or evolving infarcts. There is mass effect on the brainstem and posterior fossa with effacement of the fourth ventricle. Ananda Messina MD Abdomen X-Ray 07/27/17 0000 Signed Impressions: Service Date/Time: Thursday, July 27, 2017 20:37 - CONCLUSION: NG tube coiled in the lower thoracic esophagus. Oumar Bray Jr., MD Head/Brain Mag Res Venography 07/25/17 0000 Signed Impressions: Service Date/Time: Tuesday, July 25, 2017 19:54 - CONCLUSION: Patent dural sinuses. Lonnie Munguia MD Brain MRI 07/25/17 0000 Signed Impressions: Service Date/Time: Tuesday, July 25, 2017 10:37 - CONCLUSION: Worsening brain appearance with developing hydrocephalus which is presumably related to increasing edema in the posterior fossa. See above discussion. Lonnie Lock MD Neck Magnetic Resonance Angiography 07/21/17 0000 Signed Impressions: Service Date/Time: Friday, July 21, 2017 08:40 - CONCLUSION: No acute neck arteriovascular abnormality is identified. There is no significant stenosis within either internal carotid artery. Lonnie Ross MD Head Magnetic Resonance Angiography 07/21/17 0000 Signed Impressions: Service Date/Time: Friday, July 21, 2017 08:40 - CONCLUSION: No acute intracranial vascular abnormality is identified. Lonnie Ross MD Abdomen Ultrasound 07/21/17 0000 Signed Impressions: Service Date/Time: Friday, July 21, 2017 15:47 - CONCLUSION: Cholelithiasis. No gallbladder wall thickening or pericholecystic fluid. Victor Manuel Barros MD Laboratory Tests Test 08/02/17 15:15 08/03/17 02:45 08/03/17 09:10 CSF Volume (Tube 1) 3.0 ML CSF Supernatant Color (tube 1) CLEAR CSF WBC (Tube 1) 3 /MM3 CSF RBC (Tube 1) 346 /MM3 CSF Neutrophils 60 % CSF Lymphocytes 30 % CSF Eosinophils 10 % CSF Glucose 80 MG/DL CSF Total Protein 27.5 MG/DL White Blood Count 21.9 TH/MM3 Red Blood Count 3.45 MIL/MM3 Hemoglobin 10.7 GM/DL Hematocrit 32.5 % Mean Corpuscular Volume 94.1 FL Mean Corpuscular Hemoglobin 31.1 PG Mean Corpuscular Hemoglobin Concent 33.0 % Red Cell Distribution Width 14.1 % Platelet Count 378 TH/MM3 Mean Platelet Volume 8.6 FL Blood Urea Nitrogen 23 MG/DL Creatinine 0.70 MG/DL Random Glucose 101 MG/DL Calcium Level 8.2 MG/DL Sodium Level 145 MEQ/L Potassium Level 3.4 MEQ/L Chloride Level 109 MEQ/L Carbon Dioxide Level 27.5 MEQ/L Anion Gap 9 MEQ/L Estimat Glomerular Filtration Rate 113 ML/MIN Vancomycin Level Trough 20.3 MCG/ML Blood Gas Puncture Site LT RADIAL Blood Gas Patient Temperature 98.6 Blood Gas HCO3 25 mmol/L Blood Gas Base Excess 0.7 mmol/L Blood Gas Oxygen Saturation 94 % Arterial Blood pH 7.42 Arterial Blood Partial Pressure CO2 38 mmHg Arterial Blood Partial Pressure O2 90 mmHg Arterial Blood Oxygen Content 17.9 Vol % Arterial Blood Carboxyhemoglobin 1.3 % Arterial Blood Methemoglobin 1.3 % Blood Gas Hemoglobin 13.5 G/DL Oxygen Delivery Device VENTILATOR Blood Gas Ventilator Setting Blood Gas Inspired Oxygen 35 % (Shakir Carroll) Medical Decision Making Impression and Plan A: 66-year-old gentleman with multifocal infarcts involving both hemispheres supratentorially as well as bilateral cerebellar hemispheres with worsening edema and obstructive hydrocephalus. His neurologic examination is very poor. Discussed with over the phone and recommended an emergent ventriculostomy placement to treat the obstructive hydrocephalus. If there is noted improvement subsequently and the option of possible suboccipital craniectomy for decompression could be considered if the family chooses to continue with the aggressive management although this would be a heroic procedure. The at this point consents to ventriculostomy placement and this was witnessed by the nursing staff. Pt underwent a Bilateral suboccipital decompressive craniectomy; expensive dural bovine patch graft; left cerebellar hemisphere brain biopsy on 07/26/17. P: Continue with challenging Ventriculostomy drain and ICP measurement Continue with critical care, weaning vent. Continue to wean sedation as tolerated. Discussed with Dr. Corrales and Dr. Khanna. Harding with Neurosurgery for pt to undergo a AKILAH. (Shakir Carroll) Attending Statement The exam, history, and the medical decision-making described in the above note were completed with the assistance of the mid-level provider. I reviewed and agree with the findings presented. I attest that I had a [id number] encounter with the patient on the same day, and personally performed and documented my assessment and findings in the medical record. ICPs low with ventriculostomy level the 20 cm water. We will clamp the ventriculostomy monitor ICPs. Slowly improving neurologic examination. Discussed with nursing staff and updated at bedside. (Hossein Barrow MD) Shakir Carroll August 03, 2017 10:04 am Hossein Barrow MD August 03, 2017 2:51 pm
[2017-08-03] MEDS ORDERED: PROPOFOL 200 MG/20 ML AMP IV ONE (12:00)
[2017-08-03] MEDS ORDERED: PHENYLEPH/NS 1000 MCG/10 ML SYR IV ONE (12:00)
[2017-08-03] MEDS: cefTRIAXone INJ 2,000 MG in SODIUM CHLORIDE 0.9% INJ 100 ML IV SCH (13:24)
--- NOTE | 2017-08-03 13:50 | HHI.IDPN ---
Subjective Subjective Remarks neurologically no improvement, but per opens eyes more remains on vent no fever WBC is going up CSF clx negative Antibiotics CFTX Lines Line sites with no e.o infection Past Medical History reviewed Allergies: Coded Allergies: No Known Allergies (Verified Allergy, Unknown, 07/20/17) Objective . Vital Signs Date Time Temp Pulse Resp B/P (MAP) Pulse Ox O2 Delivery O2 Flow Rate FiO2 08/03/17 12:35 97 35 08/03/17 10:00 84 08/03/17 09:15 35 08/03/17 08:20 95 35 08/03/17 08:00 40 08/03/17 08:00 98.7 88 20 154/72 (99) 97 08/03/17 08:00 88 08/03/17 06:00 69 08/03/17 04:00 40 08/03/17 04:00 89 08/03/17 04:00 100.1 89 23 149/68 (95) 98 08/03/17 03:42 97 35 08/03/17 02:00 78 08/03/17 00:00 40 08/03/17 00:00 99.7 82 20 135/74 (94) 99 08/03/17 00:00 85 08/02/17 23:40 98 35 08/02/17 22:00 82 08/02/17 21:30 40 08/02/17 21:30 99.9 88 20 157/78 (104) 98 08/02/17 21:16 100 35 08/02/17 18:00 72 08/02/17 16:00 80 08/02/17 16:00 98.7 88 30 121/66 (84) 97 08/02/17 16:00 35 08/02/17 15:54 96 35 08/02/17 14:00 84 . Laboratory Tests Test 08/02/17 05:45 08/03/17 02:45 White Blood Count 19.9 TH/MM3 21.9 TH/MM3 Red Blood Count 3.14 MIL/MM3 3.45 MIL/MM3 Hemoglobin 9.8 GM/DL 10.7 GM/DL Hematocrit 29.8 % 32.5 % Mean Corpuscular Volume 94.9 FL 94.1 FL Mean Corpuscular Hemoglobin 31.1 PG 31.1 PG Mean Corpuscular Hemoglobin Concent 32.7 % 33.0 % Red Cell Distribution Width 14.1 % 14.1 % Platelet Count 311 TH/MM3 378 TH/MM3 Mean Platelet Volume 7.7 FL 8.6 FL Laboratory Tests Test 08/02/17 05:45 08/03/17 02:45 Blood Urea Nitrogen 26 MG/DL 23 MG/DL Creatinine 0.72 MG/DL 0.70 MG/DL Random Glucose 124 MG/DL 101 MG/DL Calcium Level 7.7 MG/DL 8.2 MG/DL Sodium Level 148 MEQ/L 145 MEQ/L Potassium Level 3.6 MEQ/L 3.4 MEQ/L Chloride Level 113 MEQ/L 109 MEQ/L Carbon Dioxide Level 28.4 MEQ/L 27.5 MEQ/L Anion Gap 7 MEQ/L 9 MEQ/L Estimat Glomerular Filtration Rate 110 ML/MIN 113 ML/MIN Microbiology Date/Time Source Procedure Growth Status 08/01/17 13:52 Blood Peripheral Aerobic Blood Culture - Preliminary NO GROWTH IN 2 DAYS Resulted 08/01/17 13:52 Blood Peripheral Anaerobic Blood Culture - Preliminary NO GROWTH IN 2 DAYS Resulted 08/01/17 13:45 Blood Peripheral Aerobic Blood Culture - Preliminary NO GROWTH IN 2 DAYS Resulted 08/01/17 13:45 Blood Peripheral Anaerobic Blood Culture - Preliminary NO GROWTH IN 2 DAYS Resulted 08/02/17 15:15 Cerebral Spinal Fluid Lumbar Puncture Gram Stain - Final Resulted 08/02/17 15:15 Cerebral Spinal Fluid Lumbar Puncture CSF Culture - Preliminary NO GROWTH IN 24 HOURS. Resulted Imaging Last Impressions Chest X-Ray 08/02/17 0600 Signed Impressions: Service Date/Time: July 04:30 - CONCLUSION: Unchanged small left effusion with bibasilar infiltrates more pronounced on the left. Oumar Bray Jr., MD Head CT 07/27/17 0600 Signed Impressions: Service Date/Time: Thursday, July 27, 2017 13:39 - CONCLUSION: 1. Decrease in ventricular size since July 25. Extensive low attenuation and swelling in both occipital lobes and also in the periventricular region, basal ganglia and focally in the right occipital lobe. Differential diagnosis includes edema or evolving infarcts. There is mass effect on the brainstem and posterior fossa with effacement of the fourth ventricle. Ananda Messina MD Abdomen X-Ray 07/27/17 0000 Signed Impressions: Service Date/Time: Thursday, July 27, 2017 20:37 - CONCLUSION: NG tube coiled in the lower thoracic esophagus. Oumar Bray Jr., MD Head/Brain Mag Res Venography 07/25/17 0000 Signed Impressions: Service Date/Time: Tuesday, July 25, 2017 19:54 - CONCLUSION: Patent dural sinuses. Lonnie Munguia MD Brain MRI 07/25/17 0000 Signed Impressions: Service Date/Time: Tuesday, July 25, 2017 10:37 - CONCLUSION: Worsening brain appearance with developing hydrocephalus which is presumably related to increasing edema in the posterior fossa. See above discussion. Lonnie Lock MD Neck Magnetic Resonance Angiography 07/21/17 0000 Signed Impressions: Service Date/Time: Friday, July 21, 2017 08:40 - CONCLUSION: No acute neck arteriovascular abnormality is identified. There is no significant stenosis within either internal carotid artery. Lonnie Ross MD Head Magnetic Resonance Angiography 07/21/17 Signed Impressions: Service Date/Time: Friday, July 21, 2017 08:40 - CONCLUSION: No acute intracranial vascular abnormality is identified. Lonnie Ross MD Abdomen Ultrasound 07/21/17 Signed Impressions: Service Date/Time: Friday, July 21, 2017 15:47 - CONCLUSION: Cholelithiasis. No gallbladder wall thickening or pericholecystic fluid. Victor Manuel Barros MD Physical Exam CONSTITUTIONAL/GENERAL: This is an obese elderly patient, in no apparent distress. On vent TUBES/LINES/DRAINS: SKIN: No jaundice, rashes, or lesions. Skin temperature appropriate. Not diaphoretic. HEAD: Ventric in place R parietal area with clear CSF EYES: Pupils equal and round and reactive. Extraocular motions intact. No scleral icterus. No injection or drainage. Fundi not examined. ENT: Hearing not tested Nose without bleeding or purulent drainage. Throat without visible erythema, exudates, masses, or lesions. Orally intubated CARDIOVASCULAR: Regular rate and rhythm without murmurs, gallops, or rubs. No JVD. Peripheral pulses symmetric. RESPIRATORY/CHEST: Symmetric, unlabored respirations. Clear to auscultation. Breath sounds equal bilaterally. No wheezes, rales, or rhonchi. GASTROINTESTINAL: Abdomen soft, non-tender, nondistended. GENITOURINARY: Without palpable bladder distension. Garner catheter in place with clear yellow urine. + scrotum edema MUSCULOSKELETAL: Extremities without clubbing, cyanosis, remains quite edematous. No joint tenderness or effusion noted. No calf tenderness. No mottling or clubbing. NEUROLOGICAL: Unresponsive eyes closed PSYCHIATRIC: Unable to assess Assessment & Plan Remarks Abnormal CSF - no r/o meningoencephalitis - probably combination of embolic strokes and anoxia t - Acute VDRF ARF 2/2 rhabdo: resolved New fever - resolved Likely PNA: sputum purulent - clx with nl resp olga lidia High grade Staph epi bacteremia Leukocytosis - can be from steroids worse low grade fever Recs: will change Ceftriaxone IV for PNA to cefepime Continue Vanco IV (target 15-20) Follow CSF cultures from ventric untill final rechk sputum clx monitor repeat blood clx If diarrhea send stool Cdiff. fu WBC dw Reva Yates MD August 03, 2017 13:50
--- NOTE | 2017-08-03 15:06 | GIPROC ---
[facility] [address] [facility]. [facility], [address] EGD WITH PEG PROCEDURE REPORT EXAM DATE: 08/03/2017 PATIENT NAME: Avinash Roman MR#: [id number] BIRTHDATE: 1950 ATTENDING: Laverne Rooney MD ORDER #: [id number] CUSTOMER SOLUTIONS COORDINATOR: Shelia Licea and Roxy Hopkins STATUS: inpatient INDICATIONS: The patient is a 66 yr old male here for an EGD with PEG due to feeding difficulties, ventilator dependent PROCEDURE PERFORMED: egd/peg placement/biopsy MEDICATIONS: None and Per Anesthesia. TOPICAL ANESTHETIC: CONSENT: The patient understands the risks and benefits of the procedure and understands that these risks include, but are not limited to: sedation, allergic reaction, infection, perforation and/or bleeding. Alternative means of evaluation and treatment include, among others: physical exam, x-rays, and/or surgical intervention. The patient elects to proceed with this endoscopic procedure. medical equipment was checked for proper function. Hand hygiene and appropriate measures for infection prevention was taken. After the risks, benefits and alternatives of the procedure were thoroughly explained, Informed consent was verified, confirmed and timeout was successfully executed by the treatment team. The patient was anesthetized with topical anesthesia and the Pentax [id number] endoscope was introduced through the mouth and advanced to the second portion of the duodenum. The instrument was slowly withdrawn as the mucosa was fully examined. Mild gastritis was found in the antrum. -biopsy multiple superficial ulcers in duodenum esophagitis distal esophagus -biopsy The stomach was then inflated with air, and by a combination of transillumination and manual palpation, the site for the gastrostomy tube placement was selected and marked on the anterior abdominal wall. The skin of the anterior abdomen was surgically prepped and draped with sterile towels. Utilizing strict sterile technique, the selected site was then anesthetized with 1% xylocaine by injection into the skin and subcutaneous tissue. A 1 cm incision was made through the skin and subcutaneous tissue, and the needle/cannula assembly was then passed through the abdominal wall and through the anterior wall of the stomach, maintaining visualization with the endoscope. A snare device previously placed through the instrument channel was then opened and placed around the cannula, the needle was removed, and the insertion wire was passed through the cannula and into the stomach lumen. The snare was then loosened from the cannula, and repositioned to snare the insertion wire. The snare was then pulled up to the endoscope distal tip, and the scope was then withdrawn bringing with it the snare and insertion wire. The insertion wire was then released from the snare, and then loop-attached to the gastrostomy tube. Using the "pull technique", the G-tube was then pulled into place by traction on the insertion wire at the abdominal wall end. The G-tube insertion site was then cleansed once again, and the external bolster was placed over the tube to secure it to the abdominal wall. A sterile dressing was then applied, and the procedure terminated. a hiatal hernia The gastroscope was then slowly withdrawn and removed. ADVERSE EVENT: There were no complications. IMPRESSIONS: 1. Mild gastritis was found in the antrum 2. A hiatal hernia 3.esophagitis distal esophagus -biopsy 4.multiple superficial duodenum-biospy RECOMMENDATIONS: 1. Anti-reflux regimen 2. Continue PPI 3. Avoid NSAIDS 4. ok to use peg for medications today ok to start tube feeding tomorrow dietary consult REPEAT EXAM: Return 1 year(s) EGD Laverne Rooney MD eSigned: Laverne Rooney MD 08/03/2017 3:06 PM cc: PATIENT NAME: Avinash Roman MR#: [id number]
[2017-08-03] MEDS: ICU - POTASSIUM CHLORIDE/AQUEOUS SOLN 20 MEQ/100 ML IVPB IV PRN ×2 (15:45→18:08)
--- NOTE | 2017-08-03 17:18 | HHI.HCPN ---
Reason for visit a. To assist with evaluation and management of symptoms including: pain; encephalopathy; dyspnea b. To assist medical decision maker(s) with: better understanding of current medical conditions; weighing benefits/burdens of medical treatment options; making medical treatment decisions. . Subjective/Interval History Patient seen and examined in ICU around 11am. Also present Roxy Bray LCSW. Discussed with nurse, Dr. Boswell and Dr. Corrales (ID). Neurosurgery notes indicate some eye opening to pain, slightly stuck out tongue on command, not moving extremities on commands. Appears to flex/localize with UEs to pain right more than left. Ventriculostomy drain in place. ICP stable. Clinical data review: * Tmax 100.1. HR 80-90. BP 154/72. * CSF no growth in 24 hours. * 08/01/17 - Blood cultures no growth in 2 days. * WBC 21.9, hemoglobin 10.7, hematocrit 32.5, platelets 378. * Sodium 145. * No new imaging. * Patient has been referred to [facility], field nurse case manager indicates will need to be reviewed by planning supervisor on 08/06/17. Low likelihood of acceptance due to neurologic status, will monitor neurologic status over the weekend. Plan for PEG tube later. . Family/friend interactions Met with at bedside questions answered. Advance Directives Living Will: Copy in medical record Health Care Surrogate: Copy in medical record Durable Power of Bill Poster Installer: Completed, but not made available Advance Directive Specifics Date completed: Living will and healthcare surrogate designation were completed on 09/29/2016. . Health Care Surrogate(s): The healthcare surrogate is the patient's spouse--Coty Weaver . Documented care wishes: The patient's living will is the standard [place] living will. He has initialed only one condition to activate his wishes -- if he has "an end-stage condition." He would not want life prolonging procedures should be diagnosed with such condition. . Significant change in goals: FULL CODE. Goals remain aggressive including PEG tube, full code etc. is hopeful for transfer to LTAC. . Objective Vital Signs Date Time Temp Pulse Resp B/P (MAP) Pulse Ox O2 Delivery O2 Flow Rate FiO2 08/03/17 16:15 99 35 08/03/17 12:35 97 35 08/03/17 12:00 35 08/03/17 12:00 90 08/03/17 10:00 84 08/03/17 09:15 35 08/03/17 08:20 95 35 08/03/17 08:00 40 08/03/17 08:00 98.7 88 20 154/72 (99) 97 08/03/17 08:00 88 08/03/17 06:00 69 08/03/17 04:00 40 08/03/17 04:00 89 08/03/17 04:00 100.1 89 23 149/68 (95) 98 08/03/17 03:42 97 35 08/03/17 02:00 78 08/03/17 00:00 40 08/03/17 00:00 99.7 82 20 135/74 (94) 99 08/03/17 00:00 85 08/02/17 23:40 98 35 08/02/17 22:00 82 08/02/17 21:30 40 08/02/17 21:30 99.9 88 20 157/78 (104) 98 08/02/17 21:16 100 35 08/02/17 18:00 72 Intake & Output 08/03/17 08/03/17 07:00 19:00 Intake Total 420 ml 100 ml Output Total 2461 ml Balance -2041 ml 100 ml IV Total 420 ml Other 100 ml Output Urine Total 1900 ml Gastric Drainage Total 550 ml Drainage Total 11 ml # Bowel Movements 0 Physical Exam CONSTITUTIONAL/GENERAL: This is an adequately nourished patient, lightly sedated in a surgical intensive care unit bed. TUBES/LINES/DRAINS: Ventriculostomy, tracheostomy, NG tube, Garner catheter, SCDs. HEAD: Ventriculostomy on right. SKIN: Multiple tattoos. No jaundice, rashes, or lesions. No wounds seen anteriorly. Skin temperature appropriate. Not diaphoretic. EYES: Eyes closed. ENT: NG tube, tracheostomy. CARDIOVASCULAR: Regular rate and rhythm without murmurs. RESPIRATORY/CHEST: Symmetric, unlabored respirations on vent. Decreased breath sounds bilaterally. GASTROINTESTINAL: Abdomen soft, non-tender, slightly distended. Bowel sounds present. GENITOURINARY: Without palpable bladder distension. Scrotal edema present. Garner catheter in place. MUSCULOSKELETAL: Extremities with edema. NEUROLOGICAL: Sedated, on Fentanyl 200mcg. Slight questionable withdraw to pain UEs. PSYCHIATRIC: Unable to evaluate due to level of responsiveness. . Diagnostic Tests Laboratory Laboratory Tests Test 08/01/17 03:30 08/02/17 05:45 08/02/17 15:15 08/03/17 02:45 White Blood Count 19.9 TH/MM3 (4.0-11.0) 19.9 TH/MM3 (4.0-11.0) 21.9 TH/MM3 (4.0-11.0) Red Blood Count 3.50 MIL/MM3 (4.50-5.90) 3.14 MIL/MM3 (4.50-5.90) 3.45 MIL/MM3 (4.50-5.90) Hemoglobin 10.8 GM/DL (13.0-17.0) 9.8 GM/DL (13.0-17.0) 10.7 GM/DL (13.0-17.0) Hematocrit 32.8 % (39.0-51.0) 29.8 % (39.0-51.0) 32.5 % (39.0-51.0) Mean Corpuscular Volume 93.7 FL (80.0-100.0) 94.9 FL (80.0-100.0) 94.1 FL (80.0-100.0) Mean Corpuscular Hemoglobin 30.8 PG (27.0-34.0) 31.1 PG (27.0-34.0) 31.1 PG (27.0-34.0) Mean Corpuscular Hemoglobin Concent 32.9 % (32.0-36.0) 32.7 % (32.0-36.0) 33.0 % (32.0-36.0) Red Cell Distribution Width 14.0 % (11.6-17.2) 14.1 % (11.6-17.2) 14.1 % (11.6-17.2) Platelet Count 446 TH/MM3 (150-450) 311 TH/MM3 (150-450) 378 TH/MM3 (150-450) Mean Platelet Volume 7.6 FL (7.0-11.0) 7.7 FL (7.0-11.0) 8.6 FL (7.0-11.0) Blood Urea Nitrogen 30 MG/DL (7-18) 26 MG/DL (7-18) 23 MG/DL (7-18) Creatinine 0.71 MG/DL (0.60-1.30) 0.72 MG/DL (0.60-1.30) 0.70 MG/DL (0.60-1.30) Random Glucose 99 MG/DL (74-106) 124 MG/DL (74-106) 101 MG/DL (74-106) Calcium Level 7.6 MG/DL (8.5-10.1) 7.7 MG/DL (8.5-10.1) 8.2 MG/DL (8.5-10.1) Sodium Level 150 MEQ/L (136-145) 148 MEQ/L (136-145) 145 MEQ/L (136-145) Potassium Level 3.5 MEQ/L (3.5-5.1) 3.6 MEQ/L (3.5-5.1) 3.4 MEQ/L (3.5-5.1) Chloride Level 113 MEQ/L (98-107) 113 MEQ/L (98-107) 109 MEQ/L (98-107) Carbon Dioxide Level 31.3 MEQ/L (21.0-32.0) 28.4 MEQ/L (21.0-32.0) 27.5 MEQ/L (21.0-32.0) Anion Gap 6 MEQ/L (5-15) 7 MEQ/L (5-15) 9 MEQ/L (5-15) Estimat Glomerular Filtration Rate 111 ML/MIN (>89) 110 ML/MIN (>89) 113 ML/MIN (>89) Phosphorus Level 4.4 MG/DL (2.5-4.9) Vancomycin Level Trough 18.4 MCG/ML (5.0-10.0) 20.3 MCG/ML (5.0-10.0) CSF Volume (Tube 1) 3.0 ML CSF Supernatant Color (tube 1) CLEAR (CLEAR) CSF WBC (Tube 1) 3 /MM3 (0-10) CSF RBC (Tube 1) 346 /MM3 (NONE) CSF Neutrophils 60 % CSF Lymphocytes 30 % CSF Eosinophils 10 % CSF Glucose 80 MG/DL (40-80) CSF Total Protein 27.5 MG/DL (15.0-45.0) Test 08/03/17 09:10 Blood Gas Puncture Site LT RADIAL Blood Gas Patient Temperature 98.6 Blood Gas HCO3 25 mmol/L (22-26) Blood Gas Base Excess 0.7 mmol/L (-2-2) Blood Gas Oxygen Saturation 94 % (90-100) Arterial Blood pH 7.42 (7.380-7.420) Arterial Blood Partial Pressure CO2 38 mmHg (38-42) Arterial Blood Partial Pressure O2 90 mmHg (61-120) Arterial Blood Oxygen Content 17.9 Vol % (12.0-20.0) Arterial Blood Carboxyhemoglobin 1.3 % (0-4) Arterial Blood Methemoglobin 1.3 % (0-2) Blood Gas Hemoglobin 13.5 G/DL (12.0-16.0) Oxygen Delivery Device VENTILATOR Blood Gas Ventilator Setting Blood Gas Inspired Oxygen 35 % Result Diagram: 08/03/17 0245 08/03/17244 Microbiology Microbiology Date/Time Source Procedure Growth Status 08/01/17 13:52 Blood Peripheral Aerobic Blood Culture - Preliminary NO GROWTH IN 2 DAYS Resulted 08/01/17 13:52 Blood Peripheral Anaerobic Blood Culture - Preliminary NO GROWTH IN 2 DAYS Resulted 08/01/17 13:45 Blood Peripheral Aerobic Blood Culture - Preliminary NO GROWTH IN 2 DAYS Resulted 08/01/17 13:45 Blood Peripheral Anaerobic Blood Culture - Preliminary NO GROWTH IN 2 DAYS Resulted 08/02/17 15:15 Cerebral Spinal Fluid Lumbar Puncture Gram Stain - Final Resulted 08/02/17 15:15 Cerebral Spinal Fluid Lumbar Puncture CSF Culture - Preliminary NO GROWTH IN 24 HOURS. Resulted Imaging Last Impressions Chest X-Ray 08/02/17 06 Signed Impressions: Service Date/Time: July 04:30 - CONCLUSION: Unchanged small left effusion with bibasilar infiltrates more pronounced on the left. Oumar Bray Jr., MD Head CT 07/27/17 0600 Signed Impressions: Service Date/Time: Thursday, July 27, 2017 13:39 - CONCLUSION: 1. Decrease in ventricular size since July 25. Extensive low attenuation and swelling in both occipital lobes and also in the periventricular region, basal ganglia and focally in the right occipital lobe. Differential diagnosis includes edema or evolving infarcts. There is mass effect on the brainstem and posterior fossa with effacement of the fourth ventricle. Ananda Messina MD Abdomen X-Ray 07/27/17 0000 Signed Impressions: Service Date/Time: Thursday, July 27, 2017 20:37 - CONCLUSION: NG tube coiled in the lower thoracic esophagus. Oumar Bray Jr., MD Head/Brain Mag Res Venography 07/25/17 0000 Signed Impressions: Service Date/Time: Tuesday, July 25, 2017 19:54 - CONCLUSION: Patent dural sinuses. Lonnie Munguia MD Brain MRI 07/25/17 0000 Signed Impressions: Service Date/Time: Tuesday, July 25, 2017 10:37 - CONCLUSION: Worsening brain appearance with developing hydrocephalus which is presumably related to increasing edema in the posterior fossa. See above discussion. Lonnie Lock MD Neck Magnetic Resonance Angiography 07/21/17 0000 Signed Impressions: Service Date/Time: Friday, July 21, 2017 08:40 - CONCLUSION: No acute neck arteriovascular abnormality is identified. There is no significant stenosis within either internal carotid artery. Lonnie Ross MD Head Magnetic Resonance Angiography 07/21/17 0000 Signed Impressions: Service Date/Time: Friday, July 21, 2017 08:40 - CONCLUSION: No acute intracranial vascular abnormality is identified. Lonnie Ross MD Abdomen Ultrasound 07/21/17 0000 Signed Impressions: Service Date/Time: Friday, July 21, 2017 15:47 - CONCLUSION: Cholelithiasis. No gallbladder wall thickening or pericholecystic fluid. Victor Manuel Barros MD Procedures * Intubation/mechanical ventilation * Ventriculostomy drain placement * Central line placement * Decompressive suboccipiatl craniotomy 07/26/17 . . Assessment and Plan Disease Oriented Problem List: (1) Stroke Comment: Evolving with obstructive hydrocephalus and cerebral edema requiring emergent ventriculostomy placement on 07/25/17 . (2) Acute respiratory failure (3) Seizure Comment: EEG negative on 07/25/17 but brazing machine setter felt patient had seizure activity. Would not be surprising given level of cerebral edema. . (4) Failed back syndrome (5) COPD (chronic obstructive pulmonary disease) (6) Hyperkalemia (7) Acute kidney injury (8) Rhabdomyolysis (9) Tobacco abuse disorder (10) Chronic, continuous use of opioids (11) Depression (12) Hypertension (13) Hyperlipidemia Symptom Scale: (1) Pain 0-10 Scale: Unable to quantify Comment: Patient has long history of chronic pain from his back for which he has undergone multiple surgeries. Has been on chronic opioids for many years. Additional sources of pain might now also include recent craniotomy; cerebral edema; prisca hole placement; prolonged bedbound status; Garner catheter; vascular access catheters; restraints; orotracheal intubation; orogastric intubation. . (2) Encephalopathy 0-10 Scale: Unable to quantify Comment: Encephalopathy may be multifactorial. It appears he has had multiple strokes, cerebral edema, acute kidney injury, and electrolyte abnormalities all of which which are likely contributing to encephalopathy. . . (3) Dyspnea 0-10 Scale: Unable to quantify Comment: Currently managed with mechanical ventilation. . Pertinent Non-Medical Issues Psychosocial: Patient is well supported locally by his spouse. He has a biological son who lives in [place], [place], but who is here now. Spiritual: Pentecostal and spirituality have not played an important role in his life. Legal: Patient has a living will and designation of healthcare surrogate currently scanned into our electronic medical record. His is his surrogate. Ethical issues impacting care: Patient is currently incapacitated to make his own healthcare decisions. It is unclear if/when he will regain capacity to do so. . Important Contacts * Coty Weaver (spouse and health care surrogate) [phone] and * Blake Castillo (son) [phone] . Prognosis The patient's prognosis is now much worse with the obstructive hydrocephalus and cerebral edema requiring emergent ventriculostomy placement and then decompressive craniotomy. Should he survive the hospitalization, chances of meaningful recovery are much less. . Code Status: Full Code Plan * Decision Making: Patient is currently incapacitated to make his own healthcare decisions, unlikely that he will regain capacity. He has designated his spouse--Coty Weaver as healthcare surrogate. * FULL CODE * Goals of medical treatment: Goals currently remain aggressive, including FULL CODE, PEG tube placement. She is hopeful for transfer to LTAC. Symptoms (see symptom descriptions above): * Pain: Patient has multiple acute sources of pain as noted above, on top of his chronic back pain. He is currently sedated on Fentanyl 50mcg; pain appears adequately controlled. Current regimen appears to be effective. No further recommendations at this time. * Dyspnea: Patient is a long-term smoker and now unable to protect his airway. Dyspnea is currently being managed by mechanical ventilation. Was tolerating CPAP prior to his apparent seizure and subsequent craniotomy. Anticipate need for ongoing full vent support, and tracheostomy much more likely needed if family would wish aggressive goals. No further recommendations at this time. * Agitation: Agitation is probably from a multifactorial delirium. Patient had been managed with dexmedetomidine in MICU. Now sedated with propofol. Await to see if agitation increases or decreases should responsiveness return. * Encephalopathy multifactorial.: We will continue to address the fixable contributors such as metabolic issues and possible infection. Psychoactive drugs present in urine tox screen have probably all cleared by now. Main source of encephalopathy now the stroke and associated edema. Palliative care will continue to follow to assist with symptom management and to further clarify goals of medical treatment as the clinical course evolves. . . Attestation To help prompt me to consider important information that might be impacting today's encounter and assessment, information from prior notes written by myself or my colleagues may have been "brought forward" into today's note. My signature on this note, however, is an attestation that I personally performed the exam, history, and/or decision-making noted today, and, unless otherwise indicated, the interactions with patient, family, and staff as well as the review of records all occurred today. I also attest that the listed assessment and stated plan reflect my best clinical judgment today based on the combination of historical information, prior notes, and today's exam/ interactions. When time spent is documented, it refers only to time spent today by the signer, or if indicated, combined time spent today by collaborating physician/nurse practitioner. Lindsay Oro August 03, 2017 17:17
[2017-08-03] MEDS: NYSTATIN SUSP 500,000 U/5 ML CUP SWISH-SWAL SCH ×2 (17:55→21:00)
[2017-08-03 18:18] LABS: BILIRUBIN, URINE NEG (NEG); BLOOD, URINE TRACE (NEG); GLUCOSE,URINE NEG (NEG); KETONE, URINE NEG (NEG); NITRITE,URINE NEG (NEG); URINE COLOR YELLOW (YELLW/STRAW); URINE LEUKOCYTE ESTERASE NEG (NEG)
[2017-08-03] MEDS: VANCOMYCIN INJ 1,500 MG in SODIUM CHLORID 0.9% 500 ML INJ 500 ML IV SCH (20:45)
[2017-08-03] MEDS: CEFEPIME INJ 2,000 MG in SODIUM CHLORIDE 0.9% INJ 100 ML IV SCH (21:48)
[2017-08-04] VITALS (18 sets, daily range): BP systolic 131–150; BP diastolic 63–88; PULSE 72–102; RESP 20–25; TEMP 98.5–99; O2SAT 97–99
[2017-08-04] MEDS: INSULIN ASPART SUPPLEMENTAL SCALE SQ SCH ×4 (00:18→17:01)
[2017-08-04] MEDS: hydrALAZINE HCL 50 MG TAB PO SCH ×3 (02:44→17:01)
[2017-08-04] MEDS: CHLORHEXIDINE GLUCONATE 2 % 1 PACK (2 CLOTHS) TOP SCH (04:21)
[2017-08-04] MEDS: CEFEPIME INJ 2,000 MG in SODIUM CHLORIDE 0.9% INJ 100 ML IV SCH ×3 (04:42→20:53)
[2017-08-04] MEDS: VANCOMYCIN INJ 1,500 MG in SODIUM CHLORID 0.9% 500 ML INJ 500 ML IV SCH ×2 (04:43→17:00)
[2017-08-04 05:39] LABS: HEMATOCRIT 31.4 % (39.0-51.0); HEMOGLOBIN 10.4 GM/DL (13.0-17.0); MEAN CELL VOLUME 94.4 FL (80.0-100.0); MEAN CORPUSCULAR HEMOGLOBIN 31.2 PG (27.0-34.0); MEAN CORPUSCULAR HGB CONC 33.1 % (32.0-36.0); MEAN PLATELET VOLUME 8.1 FL (7.0-11.0); PLATELET COUNT 350 TH/MM3 (150-450); RED BLOOD COUNT 3.33 MIL/MM3 (4.50-5.90); WHITE BLOOD COUNT 18.3 TH/MM3 (4.0-11.0)
[2017-08-04 06:07] LABS: BICARBONATE 24.5 MEQ/L (21.0-32.0); CREATININE 0.61 MG/DL (0.60-1.30)
[2017-08-04] MEDS: RESP: BUDESONIDE 0.5 MG/2 ML NEB NEB SCH ×2 (07:55→19:59)
--- NOTE | 2017-08-04 08:23 | PD.CARD.PN ---
Subjective Subjective Remarks trached, sedated Objective Medications Current Medications Medications (Trade) Dose Ordered Sig/Claudia Route Start Time Stop Time Status Last Admin (NS Flush) 2 ml UNSCH PRN IV FLUSH 07/21/17 00:00 (NS Flush) 2 ml BID IV FLUSH 07/21/17 09:00 08/03/17 21:48 (Tears Naturale Opth Soln) 1 drop TID EACH EYE 07/21/17 09:00 08/03/17 17:56 (Zofran Inj) 4 mg Q6H PRN IV PUSH 07/21/17 00:00 08/02/17 21:36 (Albuterol Neb) 2.5 mg Q2HR NEB PRN INH 07/21/17 00:00 08/03/17 08:20 ([facility]) 1 Q361D XX 07/21/17 00:00 07/21/17 00:00 (Chlorhexidine 2% Cloth) Taper DAILY@04 TOP 07/21/17 04:00 07/17/18 03:59 07/25/17 04:00 (Chlorhexidine 2% Cloth) 3 pack UNSCH PRN TOP 07/21/17 00:00 (Dilia-Colace) 1 tab BID PO 07/21/17 09:00 08/02/17 21:00 (Milk Of Magnesia Liq) 30 ml Q12H PRN PO 07/21/17 00:00 (Senokot) 17.2 mg Q12H PRN PO 07/21/17 00:00 (Dulcolax Supp) 10 mg DAILY PRN RECTAL 07/21/17 00:00 (Lactulose Liq) 30 ml DAILY PRN PO 07/21/17 00:00 (Peridex 0.12% Liq) 15 ml BID@08,20 MT 07/21/17 08:00 08/03/17 20:00 (D50w (Vial) Inj) 50 ml UNSCH PRN IV PUSH 07/21/17 00:00 (Glucagon Inj) 1 mg UNSCH PRN OTHER 07/21/17 00:00 (NovoLOG SUPPLEMENTAL SCALE) 1 Q6HR SQ 07/21/17 00:00 07/30/17 17:49 (Pulmicort Respule Neb) 0.5 mg Q12HR NEB NEB 07/21/17 08:00 08/04/17 07:55 (Brethine Inj) 1 mg UNSCH PRN SQ 07/21/17 00:30 (Lactulose Liq) 30 ml DAILY PO 07/22/17 09:00 08/01/17 09:17 (Apresoline Inj) 10 mg Q1H PRN IV PUSH 07/22/17 09:45 07/24/17 19:51 (Nitroglycerin 2% Oint) 2 inch Q6H PRN TOPICAL 07/22/17 09:45 (Miralax) 17 gm BID PO 07/23/17 21:00 08/01/17 09:17 Levetriacetam 750 mg/Sodium Chloride 107.5 ml @ 420 mls/hr Q12H IV 07/25/17 10:00 08/03/17 22:44 (Pepcid) 20 mg Q12HR PO 07/25/17 21:00 08/03/17 21:48 (Brethine Inj) 1 mg UNSCH PRN SQ 07/26/17 09:45 Propofol 100 ml @ 3.102 mls/ hr TITRATE PRN IV 07/26/17 11:00 08/02/17 06:43 Fentanyl Citrate 250 ml @ 5 mls/hr TITRATE PRN IV 07/26/17 11:00 08/02/17 17:02 (Lactinex) 1 tab TID PO 07/28/17 18:00 08/03/17 17:56 (Norvasc) 5 mg BID PO 07/29/17 09:00 08/03/17 21:48 (Lasix Inj) 40 mg BID@,18 IV PUSH 07/29/17 09:00 08/03/17 17:56 (Prinivil) 10 mg DAILY PO 07/29/17 09:00 08/02/17 09:29 (Apresoline) 50 mg Q8H PRN PO 07/30/17 09:15 Pharmacy Profile Note 0 ml @ 0 mls/hr UNSCH OTHER 07/30/17 13:00 (Apresoline) 100 mg Q8H PO 07/30/17 18:00 08/04/17 02:44 ([facility]) D/C ICU ELECTROLYTE ORDERS... UNSCH PRN .XX 08/01/17 08:30 ([facility]) ICU - CALL ORDERING PHYSIC... UNSCH PRN .XX 08/01/17 08:30 Potassium Chloride 100 ml @ 25 mls/hr UNSCH PRN IV 08/01/17 08:30 (K-Lyte Cl Eff) 50 meq UNSCH PRN PO 08/01/17 08:30 Potassium Chloride 100 ml @ 50 mls/hr UNSCH PRN IV 08/01/17 08:30 08/03/17 18:08 Magnesium Sulfate 4 gm/Sodium Chloride 108 ml @ 54 mls/hr UNSCH PRN IV 08/01/17 08:30 Magnesium Sulfate 2 gm/Sodium Chloride 104 ml @ 52 mls/hr UNSCH PRN IV 08/01/17 08:30 (Mag-Ox) 800 mg UNSCH PRN PO 08/01/17 08:30 Sodium Phosphate 30 mmol/Sodium Chloride 260 ml @ 43.333 mls/ hr UNSCH PRN IV 08/01/17 08:30 (K-Phos) 2,000 mg UNSCH PRN PO 08/01/17 08:30 Potassium Phosphate 30 mmol/ Sodium Chloride 260 ml @ 43.333 mls/ hr UNSCH PRN IV 08/01/17 08:30 Vancomycin HCl 1500 mg/Sodium Chloride 515 ml @ 250 mls/hr Q12H IV 08/03/17 17:00 08/04/17 04:43 ([facility] Ordered Lab Info) SPECIFIC LAB TO BE ... ONCE ONCE .XX 08/04/17 16:45 08/04/17 16:46 (Mycostatin Liq) 5 ml QID SWISH-SWAL 08/03/17 18:00 08/03/17 21:00 Cefepime HCl 2000 mg/Sodium Chloride 100 ml @ 200 mls/hr Q8H IV 08/03/17 21:00 08/04/17 04:42 Vital Signs / I&O Vital Signs Date Time Temp Pulse Resp B/P (MAP) Pulse Ox O2 Delivery O2 Flow Rate FiO2 08/04/17 08:06 35 08/04/17 07:57 35 08/04/17 07:57 99 35 08/04/17 07:00 35 08/04/17 06:00 88 08/04/17 04:01 99 35 08/04/17 04:00 90 08/04/17 04:00 98.5 90 20 131/63 (85) 98 08/04/17 04:00 40 08/04/17 02:00 72 08/04/17 01:12 98 35 08/04/17 00:00 98.9 86 20 150/80 (103) 98 08/04/17 00:00 86 08/04/17 00:00 40 08/03/17 22:00 86 08/03/17 20:00 98.7 79 20 125/63 (83) 98 08/03/17 20:00 82 08/03/17 20:00 40 08/03/17 19:34 98 35 08/03/17 18:00 78 08/03/17 16:15 99 35 08/03/17 16:00 79 08/03/17 16:00 35 08/03/17 16:00 99.0 79 21 122/70 (87) 99 08/03/17 14:00 93 08/03/17 12:35 97 35 08/03/17 12:00 35 08/03/17 12:00 90 08/03/17 12:00 98.5 90 22 127/67 (87) 97 08/03/17 10:00 84 08/03/17 09:15 35 I/O 08/03/17 08/03/17 08/03/17 08/04/17 08/04/17 08/04/17 07:00 15:00 23:00 07:00 15:00 23:00 Intake Total 420 ml 300 ml 300 ml 1237.5 ml Output Total 2461 ml 4000 ml 1950 ml Balance -2041 ml 300 ml -3700 ml -712.5 ml IV Total 420 ml 200 ml 300 ml 1237.5 ml Other 100 ml Output Urine Total 1900 ml 4000 ml 1950 ml Gastric Drainage Total 550 ml Drainage Total 11 ml 0 ml # Bowel Movements 0 1 0 Physical Exam GENERAL: SKIN: Warm and dry. HEAD: Normocephalic. EYES: No scleral icterus. No injection or drainage. NECK: Supple, trachea midline. No JVD or lymphadenopathy. CARDIOVASCULAR: Regular rate and rhythm without murmurs, gallops, or rubs. RESPIRATORY: Breath sounds equal bilaterally. No accessory muscle use. GASTROINTESTINAL: Abdomen soft, non-tender, nondistended. MUSCULOSKELETAL: No cyanosis, or edema. BACK: Nontender without obvious deformity. No CVA tenderness. Laboratory Laboratory Tests Test 08/03/17 09:10 08/03/17 17:10 08/03/17 17:12 08/04/17 05:24 Blood Gas Puncture Site LT RADIAL Blood Gas Patient Temperature 98.6 Blood Gas HCO3 25 mmol/L Blood Gas Base Excess 0.7 mmol/L Blood Gas Oxygen Saturation 94 % Arterial Blood pH 7.42 Arterial Blood Partial Pressure CO2 38 mmHg Arterial Blood Partial Pressure O2 90 mmHg Arterial Blood Oxygen Content 17.9 Vol % Arterial Blood Carboxyhemoglobin 1.3 % Arterial Blood Methemoglobin 1.3 % Blood Gas Hemoglobin 13.5 G/DL Oxygen Delivery Device VENTILATOR Blood Gas Ventilator Setting Blood Gas Inspired Oxygen 35 % Urine Color YELLOW Urine Turbidity CLEAR Urine pH 8.0 Urine Specific [place] 1.018 Urine Protein 30 mg/dL Urine Glucose (UA) NEG mg/dL Urine Ketones NEG mg/dL Urine Occult Blood TRACE Urine Nitrite NEG Urine Bilirubin NEG Urine Urobilinogen LESS THAN 2.0 MG/DL Urine Leukocyte Esterase NEG Urine RBC 32 /hpf Urine WBC LESS THAN 1 /hpf Microscopic Urinalysis Comment CATH-CULT NOT IND Procalcitonin 0.06 ng/mL White Blood Count 18.3 TH/MM3 Red Blood Count 3.33 MIL/MM3 Hemoglobin 10.4 GM/DL Hematocrit 31.4 % Mean Corpuscular Volume 94.4 FL Mean Corpuscular Hemoglobin 31.2 PG Mean Corpuscular Hemoglobin Concent 33.1 % Red Cell Distribution Width 14.0 % Platelet Count 350 TH/MM3 Mean Platelet Volume 8.1 FL Blood Urea Nitrogen 24 MG/DL Creatinine 0.61 MG/DL Random Glucose 106 MG/DL Calcium Level 8.0 MG/DL Sodium Level 147 MEQ/L Potassium Level 3.5 MEQ/L Chloride Level 113 MEQ/L Carbon Dioxide Level 24.5 MEQ/L Anion Gap 10 MEQ/L Estimat Glomerular Filtration Rate 133 ML/MIN Assessment and Plan Problem List: (1) Toxic metabolic encephalopathy ICD Codes: G92 - Toxic encephalopathy (2) Tetrahydrocannabinol (THC) use disorder, mild, abuse ICD Codes: F12.10 - Cannabis abuse, uncomplicated (3) Encephalopathy ICD Codes: G93.40 - Encephalopathy, unspecified (4) Stroke ICD Codes: I63.9 - Cerebral infarction, unspecified (5) Chronic, continuous use of opioids ICD Codes: F11.90 - Opioid use, unspecified, uncomplicated (6) Cocaine use ICD Codes: F14.90 - Cocaine use, unspecified, uncomplicated Assessment and Plan 1.) Cleared by neurosurgery for AKILAH, not sure if findings will change control coordinator as neurologic prognosis appears poor Navid Corrales MD August 04, 2017 08:23
[2017-08-04] MEDS: FUROSEMIDE 40 MG/4 ML VIAL IV PUSH SCH ×2 (08:46→17:00)
[2017-08-04] MEDS: DOCUSATE SODIUM 50 MG/SENNA 8.6 MG TAB PO SCH ×2 (08:46→20:55)
[2017-08-04] MEDS: amLODIPine BESYLATE 5 MG TAB PO SCH ×2 (08:46→20:55)
[2017-08-04] MEDS: LACTOBACILLUS ACIDOPHILUS TAB PO SCH ×3 (08:46→17:00)
[2017-08-04] MEDS: FAMOTIDINE 20 MG TAB PO SCH (08:46)
[2017-08-04] MEDS: LISINOPRIL 10 MG TAB PO SCH (08:47)
[2017-08-04] MEDS: SODIUM CHLORIDE 0.9% FLUSH 10 ML FLUSH IV FLUSH SCH ×2 (08:47→20:54)
[2017-08-04] MEDS: ARTIFICIAL TEARS OPTH SOLN 15 ML BTL EACH EYE SCH ×3 (08:47→17:00)
[2017-08-04] MEDS: CHLORHEXIDINE 0.12% (ORAL KIT) 15 ML CUP MT SCH ×2 (08:47→20:52)
[2017-08-04] MEDS: NYSTATIN SUSP 500,000 U/5 ML CUP SWISH-SWAL SCH ×4 (08:47→20:55)
[2017-08-04] MEDS: POLYETHYLENE GLYCOL 17 GM PKG PO SCH ×2 (08:48→20:54)
[2017-08-04] MEDS: LACTULOSE SYRUP 20 GM/30 ML CUP PO SCH (08:48)
--- NOTE | 2017-08-04 09:26 | HHI.NSPN ---
History Chief Complaint: multifocal infarct. Interval History Patient on continuous monitoring. ICP has remained within normal range for the past 24 hours. Clinically the patient is unchanged Exam Results Vital Signs Date Time Temp Pulse Resp B/P (MAP) Pulse Ox O2 Delivery O2 Flow Rate FiO2 08/04/17 08:06 35 08/04/17 08:00 98.9 96 23 137/68 (91) 98 Intake and Output 08/04/17 08/04/17 08/05/17 08:00 16:00 00:00 Intake Total 615 ml Output Total 1950 ml Balance -1335 ml Physical Examination Patient opens eyes slightly. Tends to track. Tracheostomy in place Does not follow commands withdraws with minimal response ICP has remained below 20 for the past 24 hours. Lab, Micro, Other Results Laboratory Tests Test 08/03/17 17:10 08/03/17 17:12 08/04/17 05:24 Urine Color YELLOW Urine Turbidity CLEAR Urine pH 8.0 Urine Specific [place] 1.018 Urine Protein 30 Urine Glucose (UA) NEG Urine Ketones NEG Urine Occult Blood TRACE Urine Nitrite NEG Urine Bilirubin NEG Urine Urobilinogen LESS THAN 2.0 Urine Leukocyte Esterase NEG Urine RBC 32 Urine WBC LESS THAN 1 Microscopic Urinalysis Comment CATH-CULT NOT IND Procalcitonin 0.06 White Blood Count 18.3 Red Blood Count 3.33 Hemoglobin 10.4 Hematocrit 31.4 Mean Corpuscular Volume 94.4 Mean Corpuscular Hemoglobin 31.2 Mean Corpuscular Hemoglobin Concent 33.1 Red Cell Distribution Width 14.0 Platelet Count 350 Mean Platelet Volume 8.1 Blood Urea Nitrogen 24 Creatinine 0.61 Random Glucose 106 Calcium Level 8.0 Sodium Level 147 Potassium Level 3.5 Chloride Level 113 Carbon Dioxide Level 24.5 Anion Gap 10 Estimat Glomerular Filtration Rate 133 Date/Time Source Procedure Growth Status 08/01/17 13:52 Blood Peripheral Aerobic Blood Culture - Preliminary Gram Positive Cocci Resulted 08/01/17 13:52 Blood Peripheral Anaerobic Blood Culture - Preliminary NO GROWTH IN 2 DAYS Resulted 08/02/17 15:15 Cerebral Spinal Fluid Lumbar Puncture Gram Stain - Final Resulted 08/02/17 15:15 Cerebral Spinal Fluid Lumbar Puncture CSF Culture - Preliminary NO GROWTH IN 24 HOURS. Resulted 07/27/17 16:30 Sputum Endotracheal Gram Stain - Final Complete 07/27/17 16:30 Sputum Endotracheal Sputum Culture - Final LIGHT GROWTH NORMAL RESPIRATORY LUBA Complete 07/20/17 22:50 Urine Catheterized Urine Legionella Antigen - Final PRESUMPTIVE NEGATIVE FOR LEGIONELLA P... Complete 07/20/17 22:50 Urine Catheterized Urine Streptococcus pneumoniae Antigen (M - Final PRESUMPTIVE NEGATIVE FOR STREPTOCOCCU... Complete 07/26/17 14:19 Wound Other Fungal Smear - Final NO FUNGAL ELEMENTS SEEN. Resulted 07/26/17 14:19 Wound Other Fungal Culture - Preliminary NO GROWTH IN 1 WEEK Resulted Medical Decision Making Impression and Plan Patient essentially unchanged. ICP has remained within normal range. We will obtain CT in the morning Hipolito Simmons MD August 04, 2017 09:26
[2017-08-04] MEDS: levETIRAcetam INJ 750 MG in SODIUM CHLORIDE 0.9% INJ 100 ML IV SCH ×2 (10:00→22:20)
--- NOTE | 2017-08-04 14:49 | HHI.CCPN ---
Subjective Remarks/Hospital Course This is a 66-year-old male. Date of admission 07/20/2017. Past medical history includes hypertension, hyperlipidemia, COPD with ongoing tobacco abuse, peptic ulcer disease and anxiety. He also has history of lumbar stenosis, degenerative joint disease of the back and cervical spine. He presents to [facility] with the following history. 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 According to his at bedside, patient is drug tested. Patient returned home from work on Sunday after his 30 day work schedule. Patient was changing the tire of a bike friend yesterday. Patient returned home in no acute distress. Today, patient was tired and was sleeping all day. Initially patient had similar symptoms at lunch. When the attempted to wake him up later this evening patient be was nonresponsive with a weak pulse. She attempted to use ammonia without response. At that time EMS was called and patient was transferred to [facility]. Patient was noted to be an acute change with a creatinine of 3.8. Baseline is normal. Potassium is 7.4 without EKG changes. Patient received bicarbonate, insulin/D50, calcium and Kayexalate in the ED. Repeat potassium 3 hours. Patient is making urine and appears concentrated. UA is pending. Patient leukocytosis 13,000. CPK was 5000. Lactic acid was 2.6. Urine drug screen revealed positive for opiates, amphetamines, benzodiazepines, THC and cocaine. Head CT is currently pending. Due to altered mental status patient was admitted after receiving 20 mg etomidate and 100 mg succinylcholine by ED physician. Patient also received 4 mg of midazolam and after which patient became hypotensive is currently receiving 3 L normal saline wide open. Head CT is currently pending. Patient received clindamycin along with piperacillin/ tazobactam in the ED. 07/21: Overnight the patient required to protamine infusion low-dose currently being weaned off. The patient continues on fentanyl and propofol infusion for ventilator synchrony. Patient's undergoing MRI evaluation results pending. The patient was noted to have significant elevation in creatinine kinase the patient is bolused 1 L IV fluids increase in normal saline 200 cc/hr. Lactic acid downtrending will continue to trend creatinine noted to be decreasing. 07/22: Currently afebrile. Off all vasopressors. We will switch to LR at 200 cc an hour. Recheck BMP this afternoon. Moving all 4 x-rays spontaneously right upper extremity less. Opens eyes but not following commands. Positive gag and corneal reflex. 07/23: Currently on dexmedetomidine drip at 0.7 mg/kg/h. Minimal response to distinguish. Will hold at the present time and reassess neurological condition. EEG showed no epileptiform activity. Tolerating tube feeding. No bowel movement since admission. Currently afebrile. 07/24: Per nursing staff patient was off sedation over the night and he woke up and followed some simple commands, but due to agitation, hypertension and tachycardia patient was restarted on sedation. He is currently on Precedex at 1 , tolerating CPAP, sedated. T-max of 99. I/O 3029/1451. 07/25: No events over the night. This morning while attempting CPAP trial patient became rigid, unresponsive, with gaze deviation, tachypneic tachycardic and hypertensive, suggesting seizure activity. Patient was immediately given Ativan 2 mg 1 with resolution of episode. Neurology was contacted and plan for EEG and CT head as well as propofol infusion. No family present at bedside. T-max of 100.7 over the night. Urine output 2300 mL's over the last 24 hours. 07/26: EVD placed yesterday for declining mental status with hydrocephalus and severe cerebellar edema. this AM, extensor posturing. supratentorial ICPs controlled, but cerebellar edema persists. discussed with Dr. Castillo: csf could be consistent with encephalitis. d/w Dr. Barrow: will need posterior fossa decompression. 07/27: no improvements in mental status. s/p suboccipital crani yesterday. remains intermittently on cardene and levophed to maintain cpp. ICP controlled. brain biopsies pending. 07/28: Osmolality suitably concentrated. ICP well controlled. Maintaining head up position. On attempted CPAP trial patient has 25 second periods of apnea. Unstable neurological status we will not stress him with extended spontaneous breathing trials. 07/29: Requiring Cardene still to maintain systolic blood pressure less than 160. Markedly edematous and will need to start active diuresis. No change in neurologic function. Apnea episodes persist. 07/30: off cardene. still grossly volume overloaded. neuro exam remains poor. 07/31: no improvement in mental status. wbc slight uptrend. afebrile. awaiting MRI for prognostication and to re-evaluate edema. adequate diuresis yesterday. 08/01: encephalopathy persists. wbc uptrending but afebrile. unable to obtain MRI due to elevated ICP, cannot tolerate lying flat. would benefit from MRI when able. diuresing well. 08/02: low grade fevers persist. wbc still high. on empiric abx. ventric has been in x 7 days: with fever and poor neurologic exam, will send CSF for cell count and culture. no change in mental status. 08/03: CSF cultures pending. no change in neuro exam. wbc still high and uptrending. challenging drain, currently at [id number] Subjective: 08/04: Afebrile. Positive gag and cough. Ventricular drain currently at 20 cm H2O. Afebrile. PEG tube placed today. Objective Vital Signs Date Time Temp Pulse Resp B/P (MAP) Pulse Ox O2 Delivery O2 Flow Rate FiO2 08/04/17 11:31 98 35 08/04/17 10:00 96 08/04/17 08:00 98.9 23 137/68 (91) Intake and Output 08/04/17 08/04/17 08/04/17 07:59 15:59 23:59 Intake Total 615 ml Output Total 1950 ml Balance -1335 ml Result Diagram: 08/04/1724 08/04/17523 Other Results Microbiology Date/Time Source Procedure Growth Status 08/01/17 13:52 Blood Peripheral Aerobic Blood Culture - Final Staph Sp Coagulase Negative Resulted 08/01/17 13:52 Blood Peripheral Anaerobic Blood Culture - Preliminary NO GROWTH IN 3 DAYS Resulted 08/02/17 15:15 Cerebral Spinal Fluid Lumbar Puncture Gram Stain - Final Resulted 08/02/17 15:15 Cerebral Spinal Fluid Lumbar Puncture CSF Culture - Preliminary NO GROWTH IN 48 HOURS. Resulted 07/27/17 16:30 Sputum Endotracheal Gram Stain - Final Complete 07/27/17 16:30 Sputum Endotracheal Sputum Culture - Final LIGHT GROWTH NORMAL RESPIRATORY LUBA Complete 07/20/17 22:50 Urine Catheterized Urine Legionella Antigen - Final PRESUMPTIVE NEGATIVE FOR LEGIONELLA P... Complete 07/20/17 22:50 Urine Catheterized Urine Streptococcus pneumoniae Antigen (M - Final PRESUMPTIVE NEGATIVE FOR STREPTOCOCCU... Complete 07/26/17 14:19 Wound Other Fungal Smear - Final NO FUNGAL ELEMENTS SEEN. Resulted 07/26/17 14:19 Wound Other Fungal Culture - Preliminary NO GROWTH IN 1 WEEK Resulted Imaging Last Impressions Chest X-Ray 08/02/17 0600 Signed Impressions: Service Date/Time: July 04:30 - CONCLUSION: Unchanged small left effusion with bibasilar infiltrates more pronounced on the left. Oumar Bray Jr., MD Head CT 07/27/17 0600 Signed Impressions: Service Date/Time: Thursday, July 27, 2017 13:39 - CONCLUSION: 1. Decrease in ventricular size since July 25. Extensive low attenuation and swelling in both occipital lobes and also in the periventricular region, basal ganglia and focally in the right occipital lobe. Differential diagnosis includes edema or evolving infarcts. There is mass effect on the brainstem and posterior fossa with effacement of the fourth ventricle. Ananda Messina MD Abdomen X-Ray 07/27/17 0000 Signed Impressions: Service Date/Time: Thursday, July 27, 2017 20:37 - CONCLUSION: NG tube coiled in the lower thoracic esophagus. Oumar Bray Jr., MD Head/Brain Mag Res Venography 07/25/17 0000 Signed Impressions: Service Date/Time: Tuesday, July 25, 2017 19:54 - CONCLUSION: Patent dural sinuses. Lonnie Munguia MD Brain MRI 07/25/17 0000 Signed Impressions: Service Date/Time: Tuesday, July 25, 2017 10:37 - CONCLUSION: Worsening brain appearance with developing hydrocephalus which is presumably related to increasing edema in the posterior fossa. See above discussion. Lonnie Lock MD Neck Magnetic Resonance Angiography 07/21/17 Signed Impressions: Service Date/Time: Friday, July 21, 2017 08:40 - CONCLUSION: No acute neck arteriovascular abnormality is identified. There is no significant stenosis within either internal carotid artery. Lonnie Ross MD Head Magnetic Resonance Angiography 07/21/17 Signed Impressions: Service Date/Time: Friday, July 21, 2017 08:40 - CONCLUSION: No acute intracranial vascular abnormality is identified. Lonnie Ross MD Abdomen Ultrasound 07/21/17 Signed Impressions: Service Date/Time: Friday, July 21, 2017 15:47 - CONCLUSION: Cholelithiasis. No gallbladder wall thickening or pericholecystic fluid. Victor Manuel Barros MD Procedures Right hole ventriculostomy Objective Remarks General -66-year-old male currently resting in bed HEENT -ventricular size/right frontal clean dry and intact without signs of infection. Pupils equal, dilated about 8 mm bilaterally, reactive, sclerae anicteric, neck supple, no nuchal rigidity. Tracheostomy site is clean dry and intact CV - normal rate, regular rhythm. sinus. no JVD Chest - equal chest rise. With symmetrical excursion.. Decreased breath sounds both bases. Abdomen - soft, non-tender, non-distended, no guarding. PEG tube in left lower quadrant is clean dry and intact Skin - no rashes, no cyanosis, multiple tattoos bilateral upper extremities and thorax Extremities - warm and well perfused, no edema, + peripheral pulses, no clubbing Neuro - off sedation, unresponsive, pupils equal and reactive, extensor posturing. 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 Castillo following neurosurgery: Dr. Barrow following. Currently levetiracetam 750 mg IV every [address] brain 07/27 - Decrease in ventricular size since July 25. Extensive low attenuation and swelling in both occipital lobes and also in the periventricular region, basal ganglia and focally in the right occipital lobe. Differential diagnosis includes edema or evolving infarcts. There is mass effect on the brainstem and posterior fossa with effacement of the fourth ventricle. CT brain 07/21 There is patchy mild diminished attenuation in centrum semi-ovale bilaterally. There is mild heterogeneous diminished density in the genu region of internal capsules and globus pallidus bilaterally. There is vague diminished density in the cerebellar hemispheres bilaterally. There is no evidence of intracranial mass or hemorrhage. There is no abnormal extra-axial fluid accumulation or shift present. 07/21 MRI brain-Multifocal areas of restricted diffusion/recent ischemia within the centrum semiovale bilaterally, bilateral occipital lobes, bilateral basal ganglia, bilateral temporal lobes, and bilateral cerebellar hemispheres. Findings could be related to global anoxic event or less likely embolic phenomenon. 07/21 EEG revealed no epileptic activity 07/21-MRA brain/neck -no acute findings UDS + opiates, amphetamines, benzodiazepines, THC and cocaine CSF studies all negative cytology and bacterial infection brain biopsies of the cerebellum revealed there is necrosis and loss of neurons of the Purkinje cell layer EVD placed 07/25 by Pushpa. Currently -20 cm H2O. 0 cc past 24 hours documented. 11 cc prior CV: History of essential hypertension Hyperlipidemia Lactic acidosis -resolved Sinus bradycardia- secondary to elevated ICP- resolved Holding valsartan 320 mg p.o. daily due to hypotension/acute kidney injury Holding rosuvastatin 10 mg p.o. q. Sunday/Sunday/Sunday due to elevated LFTs. Resume when clinically indicated. amlodipine 5mg po twice daily and hydralazine 100 mg 3 times daily for hypertension TTE results reviewed, LV size normal, EF of 55%. AKILAH cleared for cardiology Resp: Acute hypoxemic and hypercarbic respiratory failure Tobacco use disorder Continue PRVC ventilation Ventilator bundle Albuterol/ipratropium aerosols every 6 hours with albuterol aerosol every 2 hours as needed dyspnea budesonide 0.5/2 1 inhalation twice daily since on budesonide/formoterol 160/ 4.5 1 puff twice daily at home along with albuterol inhaler twice daily no weaning of mechanical ventilation until mental status and ICP improves wean fio2 for goal spo2 > 90% hob elevated Tracheostomy 07/28. GI: Elevated transaminases -slowly trending down Rhabdomyolysis -improving, urine output is adequate, CPK trending down Cholelithiasis 07/21 Liver ultrasound revealed cholelithiasis Hepatitis panel-negative Tube feeding with Jevity 1.5 goal 65 cc are recommended Famotidine 20 mg twice daily for GI prophylaxis Docusate/senna 1 tablet twice daily for bowel regimen with polyethylene glycol 17 g twice daily and lactulose 30 cc daily Placement of gastric tube/percutaneous endoscopic by Dr. Rooney 08/04 Renal/: Acute kidney injury d/c adler today. continue forced diuresis currently on furosemide 20 mg IV twice daily since 07/29 Creatinine currently 1.3. Renal ultrasound revealed no hydronephrosis bilaterally 07/21 Urine eosinophils negative. Avoid nephrotoxic drugs Endo: Sliding scale insulin with NovoLog with Accu-Cheks every 6 hours to maintain euglycemia/low regimen Hemoglobin A1c documented at 6.1 Heme: Normocytic anemia Leukocytosis Monitor CBC daily. Follow trend hold SQH ID: Staph epi/coag negative staph bacteremia Received piperacillin/tazobactam and clindamycin ED for possible aspiration ID involved and following. Previously on ceftriaxone for staph in 2/2 bottles blood cultures. Vancomycin, cefepime current regimen Pertinent cultures 08/01 -blood cultures -coag negative staph 07/28 -blood cultures staph epi 07/27 -blood cultures -staph epi- Blood cultures 2, UA, sputum 07/21 all pending/no growth to date Strep pneumo, Legionella urine antigens- 08/02 - CSF cultures pending, currently NGTD. FEN: Hypophosphatemia -resolved Electrolyte protocol Unscheduled potassium chloride 20 mEq twice daily while on furosemide MSK: History of multiple lumbar/cervical spine surgeries PT evaluate and treat Access adler: will d/c . Currently with condom catheter 07/25 EVD Prophylaxis -GI -lansoprazole -DVT -SCD/ Heparin SQ held. Resume when okay with neurosurgery Level 2 follow-up Singh Romero MD August 04, 2017 14:49
--- NOTE | 2017-08-04 15:24 | HHI.GIFU ---
Subjective Remarks Pt remains on sedation, mechanically ventilated via trach Per RN, pt was started on Jevity 1.5 a few minutes prior to my arrival PEG site is clean and dry, no drainage Objective Vitals I&O Vital Signs Date Time Temp Pulse Resp B/P (MAP) Pulse Ox O2 Delivery O2 Flow Rate FiO2 08/04/17 11:31 98 35 08/04/17 10:00 96 08/04/17 08:06 35 08/04/17 08:00 81 08/04/17 08:00 98.9 96 23 137/68 (91) 98 08/04/17 07:57 35 08/04/17 07:57 99 35 08/04/17 07:00 35 08/04/17 06:00 88 08/04/17 04:01 99 35 08/04/17 04:00 90 08/04/17 04:00 98.5 90 20 131/63 (85) 98 08/04/17 04:00 40 08/04/17 02:00 72 08/04/17 01:12 98 35 08/04/17 00:00 98.9 86 20 150/80 (103) 98 08/04/17 00:00 86 08/04/17 00:00 40 08/03/17 22:00 86 08/03/17 20:00 98.7 79 20 125/63 (83) 98 08/03/17 20:00 82 08/03/17 20:00 40 08/03/17 19:34 98 35 08/03/17 18:00 78 08/03/17 16:15 99 35 08/03/17 16:00 79 08/03/17 16:00 35 08/03/17 16:00 99.0 79 21 122/70 (87) 99 I/O 08/03/17 08/03/17 08/03/17 08/04/17 08/04/17 08/04/17 07:00 15:00 23:00 07:00 15:00 23:00 Intake Total 420 ml 300 ml 300 ml 1237.5 ml Output Total 2461 ml 4000 ml 1950 ml Balance -2041 ml 300 ml -3700 ml -712.5 ml IV Total 420 ml 200 ml 300 ml 1237.5 ml Other 100 ml Output Urine Total 1900 ml 4000 ml 1950 ml Gastric Drainage Total 550 ml Drainage Total 11 ml 0 ml # Bowel Movements 0 1 0 Laboratory Laboratory Tests Test 08/03/17 17:10 08/03/17 17:12 08/04/17 05:24 Urine Color YELLOW Urine Turbidity CLEAR Urine pH 8.0 Urine Specific [place] 1.018 Urine Protein 30 Urine Glucose (UA) NEG Urine Ketones NEG Urine Occult Blood TRACE Urine Nitrite NEG Urine Bilirubin NEG Urine Urobilinogen LESS THAN 2.0 Urine Leukocyte Esterase NEG Urine RBC 32 Urine WBC LESS THAN 1 Microscopic Urinalysis Comment CATH-CULT NOT IND Procalcitonin 0.06 White Blood Count 18.3 Red Blood Count 3.33 Hemoglobin 10.4 Hematocrit 31.4 Mean Corpuscular Volume 94.4 Mean Corpuscular Hemoglobin 31.2 Mean Corpuscular Hemoglobin Concent 33.1 Red Cell Distribution Width 14.0 Platelet Count 350 Mean Platelet Volume 8.1 Blood Urea Nitrogen 24 Creatinine 0.61 Random Glucose 106 Calcium Level 8.0 Sodium Level 147 Potassium Level 3.5 Chloride Level 113 Carbon Dioxide Level 24.5 Anion Gap 10 Estimat Glomerular Filtration Rate 133 Date/Time Source Procedure Growth Status 08/01/17 13:52 Blood Peripheral Aerobic Blood Culture - Final Staph Sp Coagulase Negative Resulted 08/01/17 13:52 Blood Peripheral Anaerobic Blood Culture - Preliminary NO GROWTH IN 3 DAYS Resulted 08/02/17 15:15 Cerebral Spinal Fluid Lumbar Puncture Gram Stain - Final Resulted 08/02/17 15:15 Cerebral Spinal Fluid Lumbar Puncture CSF Culture - Preliminary NO GROWTH IN 48 HOURS. Resulted 07/27/17 16:30 Sputum Endotracheal Gram Stain - Final Complete 07/27/17 16:30 Sputum Endotracheal Sputum Culture - Final LIGHT GROWTH NORMAL RESPIRATORY LUBA Complete 07/20/17 22:50 Urine Catheterized Urine Legionella Antigen - Final PRESUMPTIVE NEGATIVE FOR LEGIONELLA P... Complete 07/20/17 22:50 Urine Catheterized Urine Streptococcus pneumoniae Antigen (M - Final PRESUMPTIVE NEGATIVE FOR STREPTOCOCCU... Complete 07/26/17 14:19 Wound Other Fungal Smear - Final NO FUNGAL ELEMENTS SEEN. Resulted 07/26/17 14:19 Wound Other Fungal Culture - Preliminary NO GROWTH IN 1 WEEK Resulted Imaging Last Impressions Chest X-Ray 08/02/17 0600 Signed Impressions: Service Date/Time: July 04:30 - CONCLUSION: Unchanged small left effusion with bibasilar infiltrates more pronounced on the left. Oumar Bray Jr., MD Head CT 07/27/17 0600 Signed Impressions: Service Date/Time: Thursday, July 27, 2017 13:39 - CONCLUSION: 1. Decrease in ventricular size since July 25. Extensive low attenuation and swelling in both occipital lobes and also in the periventricular region, basal ganglia and focally in the right occipital lobe. Differential diagnosis includes edema or evolving infarcts. There is mass effect on the brainstem and posterior fossa with effacement of the fourth ventricle. Ananda Messina MD Abdomen X-Ray 07/27/17 Signed Impressions: Service Date/Time: Thursday, July 27, 2017 20:37 - CONCLUSION: NG tube coiled in the lower thoracic esophagus. Oumar Bray Jr., MD Head/Brain Mag Res Venography 07/25/17 Signed Impressions: Service Date/Time: Tuesday, July 25, 2017 19:54 - CONCLUSION: Patent dural sinuses. Lonnie Munguia MD Brain MRI 07/25/17 Signed Impressions: Service Date/Time: Tuesday, July 25, 2017 10:37 - CONCLUSION: Worsening brain appearance with developing hydrocephalus which is presumably related to increasing edema in the posterior fossa. See above discussion. Lonnie Lock MD Neck Magnetic Resonance Angiography 07/21/17 Signed Impressions: Service Date/Time: Friday, July 21, 2017 08:40 - CONCLUSION: No acute neck arteriovascular abnormality is identified. There is no significant stenosis within either internal carotid artery. Lonnie Ross MD Head Magnetic Resonance Angiography 07/21/17 Signed Impressions: Service Date/Time: Friday, July 21, 2017 08:40 - CONCLUSION: No acute intracranial vascular abnormality is identified. Lonnie Ross MD Abdomen Ultrasound 07/21/17 Signed Impressions: Service Date/Time: Friday, July 21, 2017 15:47 - CONCLUSION: Cholelithiasis. No gallbladder wall thickening or pericholecystic fluid. Victor Manuel Barros MD Physical Exam HEENT: Normocephalic; Ventriculostomy CHEST: Respirations synchronized with vent, trach CARDIAC: RRR ABDOMEN: Round, soft, bowel sounds active. PEG site clean and dry. TF (Jevity 1.5) running at 20 mL/hr SKIN: Normal; no rash; no jaundice. 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 Hiatal hernia. Esophagitis in the distal esophagus. Multiple superficial ulcers in the duodenum. (08/04) PEG tube site is clean and dry. RN started TF, Jevity 1.5 at 20 mL/hr with goal rate of 65 mL/hr PLAN - Protonix - TF per nutrition- Jevity 1.5 at 65 mL/hr - GI will sign off, please reconsult as needed Patient has been seen and examined by myself and Dr. Rooney and this note is written on her behalf Dennise Knott August 04, 2017 15:24
[2017-08-04] MEDS: RESP: ALBUTEROL 2.5 MG/IPRATROPIUM 0.5 MG NEB (SCH) NEB ×2 (15:39→19:59)
[2017-08-04] MEDS ORDERED: PANTOPRAZOLE SODIUM 40 MG VIAL IV PUSH SCH (16:00)
[2017-08-04] MEDS ORDERED: PHARMACY ORDERED LAB ONE (16:45)
[2017-08-04] MEDS: POTASSIUM CHLORIDE 20 MEQ PWD PACKET NG SCH (20:57)
[2017-08-04] MEDS: fentaNYL DRIP 250 ML IV PRN (21:26)
[2017-08-05] VITALS (16 sets, daily range): BP systolic 106–136; BP diastolic 55–64; PULSE 79–108; RESP 22–27; TEMP 98.7–100.1; O2SAT 96–99
[2017-08-05] MEDS: hydrALAZINE HCL 50 MG TAB PO SCH ×3 (02:00→17:19)
[2017-08-05] MEDS: CHLORHEXIDINE GLUCONATE 2 % 1 PACK (2 CLOTHS) TOP SCH (04:00)
[2017-08-05] MEDS: RESP: ALBUTEROL 2.5 MG/IPRATROPIUM 0.5 MG NEB (SCH) NEB ×4 (04:02→20:52)
--- NOTE | 2017-08-05 04:06 | RADRPT ---
EXAM DATE/TIME: 08/05/2017 03:25 [facility] COMPARISON: CHEST SINGLE AP, August 02, 2017, 4:30. INDICATIONS : Shortness of breath. MEDICAL HISTORY : Diabetes mellitus type II. Hypertension. Chronic obstructive pulmonary disease SURGICAL HISTORY : Colon resection. Fusion, cervical ENCOUNTER: Subsequent ACUITY: 2 weeks PAIN SCORE: Non-responsive. LOCATION: Bilateral chest FINDINGS: Tracheostomy in good position. Mild basilar airspace disease improved from August 02. No new consolidati on. No pneumothorax or significant effusion. CONCLUSION: 1. Improved basilar airspace disease since August 02. Ananda Messina MD on August 05, 2017 at 4:04 Board Certified Radiologist. This report was verified electronically.
--- NOTE | 2017-08-05 05:19 | RADRPT ---
EXAM DATE/TIME: 08/05/2017 04:53 [facility] COMPARISON: CT BRAIN W/O CONTRAST, July 27, 2017, 13:39. INDICATIONS : Follow up ischemia and hemorrhage. RADIATION DOSE: 56.75 CTDIvol (mGy) MEDICAL HISTORY : Non-responsive. SURGICAL HISTORY : Non-responsive. ENCOUNTER: Subsequent ACUITY: 3 weeks PAIN SCALE: Non-responsive LOCATION: cranial TECHNIQUE: Multiple contiguous axial images were obtained of the head. Using automated exposure control and adj ustment of the mA and/or kV according to patient size, radiation dose was kept as low as reasonably a chievable to obtain optimal diagnostic quality images. DICOM format image data is available electro nically for review and comparison. FINDINGS: Again seen is occipital craniotomy. Brain swelling has decreased slightly since the prior exam with l ess effacement of the fourth ventricle and lateral ventricles. Right frontal ventriculostomy is prese nt. Multiple evolving infarcts again noted in the posterior fossa, basal ganglia as well as in the te mporal region and left occipital region. CONCLUSION: 1. Decreasing brain edema and mass effect. Multiple evolving infarcts as above. Previous right fronta l ventriculostomy tube placement and occipital craniotomy. Ananda Messina MD on August 05, 2017 at 5:14 Board Certified Radiologist. This report was verified electronically.
[2017-08-05] MEDS: CEFEPIME INJ 2,000 MG in SODIUM CHLORIDE 0.9% INJ 100 ML IV SCH ×2 (05:46→11:43)
[2017-08-05] MEDS: VANCOMYCIN INJ 1,500 MG in SODIUM CHLORID 0.9% 500 ML INJ 500 ML IV SCH ×2 (05:47→16:05)
[2017-08-05] MEDS: INSULIN ASPART SUPPLEMENTAL SCALE SQ SCH ×4 (06:00→17:13)
[2017-08-05 06:40] LABS: ALBUMIN 2.2 GM/DL (3.4-5.0); BICARBONATE 26.6 MEQ/L (21.0-32.0); CREATININE 0.6 MG/DL (0.60-1.30); DIRECT BILIRUBIN ADULT 0.1 MG/DL (0.0-0.2); MAGNESIUM 2.2 MG/DL (1.5-2.5); PHOSPHORUS 2.8 MG/DL (2.5-4.9)
[2017-08-05 06:42] LABS: INDIRECT BILIRUBIN 0.2 MG/DL (0.0-0.8); TOTAL BILIRUBIN ADULT 0.3 MG/DL (0.2-1.0); TOTAL PROTEIN 5.8 GM/DL (6.4-8.2)
[2017-08-05 07:17] LABS: HEMATOCRIT 29.2 % (39.0-51.0); HEMOGLOBIN 9.8 GM/DL (13.0-17.0); MEAN CORPUSCULAR HEMOGLOBIN 31.9 PG (27.0-34.0); MEAN CORPUSCULAR HGB CONC 33.5 % (32.0-36.0); MEAN PLATELET VOLUME 8.1 FL (7.0-11.0); PLATELET COUNT 351 TH/MM3 (150-450); RED BLOOD COUNT 3.07 MIL/MM3 (4.50-5.90); RED CELL DISTRIBUTION WIDTH 13.7 % (11.6-17.2); WHITE BLOOD COUNT 13.2 TH/MM3 (4.0-11.0)
[2017-08-05] MEDS: RESP: BUDESONIDE 0.5 MG/2 ML NEB NEB SCH ×2 (07:29→20:52)
[2017-08-05] MEDS: CHLORHEXIDINE 0.12% (ORAL KIT) 15 ML CUP MT SCH ×2 (08:00→20:00)
[2017-08-05] MEDS: ARTIFICIAL TEARS OPTH SOLN 15 ML BTL EACH EYE SCH ×3 (08:01→17:13)
[2017-08-05] MEDS: LISINOPRIL 10 MG TAB PO SCH ×2 (08:01→08:20)
[2017-08-05] MEDS: amLODIPine BESYLATE 5 MG TAB PO SCH ×3 (08:01→20:51)
[2017-08-05] MEDS: SODIUM CHLORIDE 0.9% FLUSH 10 ML FLUSH IV FLUSH SCH ×2 (08:01→20:52)
[2017-08-05] MEDS: FUROSEMIDE 40 MG/4 ML VIAL IV PUSH SCH (08:17)
[2017-08-05] MEDS: LACTULOSE SYRUP 20 GM/30 ML CUP PO SCH ×2 (08:18→20:51)
[2017-08-05] MEDS: POTASSIUM CHLORIDE 20 MEQ PWD PACKET NG SCH ×2 (08:18→20:52)
[2017-08-05] MEDS: LACTOBACILLUS ACIDOPHILUS TAB PO SCH ×3 (08:19→17:19)
[2017-08-05] MEDS: POLYETHYLENE GLYCOL 17 GM PKG PO SCH (08:19)
[2017-08-05] MEDS: DOCUSATE SODIUM 50 MG/SENNA 8.6 MG TAB PO SCH (08:19)
[2017-08-05] MEDS: NYSTATIN SUSP 500,000 U/5 ML CUP SWISH-SWAL SCH ×4 (08:19→20:51)
[2017-08-05] MEDS: levETIRAcetam INJ 750 MG in SODIUM CHLORIDE 0.9% INJ 100 ML IV SCH ×2 (09:47→22:31)
--- NOTE | 2017-08-05 10:10 | PD.CARD.PN ---
Subjective Subjective Remarks trached, on iv fentanyl, appears to be moving eyes but not responding to commands Objective Medications Current Medications Medications (Trade) Dose Ordered Sig/Claudia Route Start Time Stop Time Status Last Admin (NS Flush) 2 ml UNSCH PRN IV FLUSH 07/21/17 00:00 (NS Flush) 2 ml BID IV FLUSH 07/21/17 09:00 08/05/17 08:01 (Tears Naturale Opth Soln) 1 drop TID EACH EYE 07/21/17 09:00 08/05/17 08:01 (Zofran Inj) 4 mg Q6H PRN IV PUSH 07/21/17 00:00 08/02/17 21:36 (Albuterol Neb) 2.5 mg Q2HR NEB PRN INH 07/21/17 00:00 08/03/17 08:20 ([facility]) 1 Q361D XX 07/21/17 00:00 07/21/17 00:00 (Chlorhexidine 2% Cloth) Taper DAILY@04 TOP 07/21/17 04:00 07/17/18 03:59 08/05/17 04:00 (Chlorhexidine 2% Cloth) 3 pack UNSCH PRN TOP 07/21/17 00:00 (Dilia-Colace) 1 tab BID PO 07/21/17 09:00 08/05/17 08:19 (Milk Of Magnesia Liq) 30 ml Q12H PRN PO 07/21/17 00:00 (Senokot) 17.2 mg Q12H PRN PO 07/21/17 00:00 (Dulcolax Supp) 10 mg DAILY PRN RECTAL 07/21/17 00:00 (Lactulose Liq) 30 ml DAILY PRN PO 07/21/17 00:00 (Peridex 0.12% Liq) 15 ml BID@08,20 MT 07/21/17 08:00 08/05/17 08:00 (D50w (Vial) Inj) 50 ml UNSCH PRN IV PUSH 07/21/17 00:00 (Glucagon Inj) 1 mg UNSCH PRN OTHER 07/21/17 00:00 (NovoLOG SUPPLEMENTAL SCALE) 1 Q6HR SQ 07/21/17 00:00 07/30/17 17:49 (Pulmicort Respule Neb) 0.5 mg Q12HR NEB NEB 07/21/17 08:00 08/05/17 07:29 (Brethine Inj) 1 mg UNSCH PRN SQ 07/21/17 00:30 (Lactulose Liq) 30 ml DAILY PO 07/22/17 09:00 08/05/17 08:18 (Apresoline Inj) 10 mg Q1H PRN IV PUSH 07/22/17 09:45 07/24/17 19:51 (Nitroglycerin 2% Oint) 2 inch Q6H PRN TOPICAL 07/22/17 09:45 (Miralax) 17 gm BID PO 07/23/17 21:00 08/05/17 08:19 Levetriacetam 750 mg/Sodium Chloride 107.5 ml @ 420 mls/hr Q12H IV 07/25/17 10:00 08/05/17 09:47 (Brethine Inj) 1 mg UNSCH PRN SQ 07/26/17 09:45 Propofol 100 ml @ 3.102 mls/ hr TITRATE PRN IV 07/26/17 11:00 08/02/17 06:43 Fentanyl Citrate 250 ml @ 5 mls/hr TITRATE PRN IV 07/26/17 11:00 08/04/17 21:26 (Lactinex) 1 tab TID PO 07/28/17 18:00 08/05/17 08:19 (Norvasc) 5 mg BID PO 07/29/17 09:00 08/05/17 08:20 (Prinivil) 10 mg DAILY PO 07/29/17 09:00 08/05/17 08:20 (Apresoline) 50 mg Q8H PRN PO 07/30/17 09:15 Pharmacy Profile Note 0 ml @ 0 mls/hr UNSCH OTHER 07/30/17 13:00 (Apresoline) 100 mg Q8H PO 07/30/17 18:00 08/05/17 09:47 ([facility]) D/C ICU ELECTROLYTE ORDERS... UNSCH PRN .XX 08/01/17 08:30 ([facility]) ICU - CALL ORDERING PHYSIC... UNSCH PRN .XX 08/01/17 08:30 Potassium Chloride 100 ml @ 25 mls/hr UNSCH PRN IV 08/01/17 08:30 (K-Lyte Cl Eff) 50 meq UNSCH PRN PO 08/01/17 08:30 Potassium Chloride 100 ml @ 50 mls/hr UNSCH PRN IV 08/01/17 08:30 08/03/17 18:08 Magnesium Sulfate 4 gm/Sodium Chloride 108 ml @ 54 mls/hr UNSCH PRN IV 08/01/17 08:30 Magnesium Sulfate 2 gm/Sodium Chloride 104 ml @ 52 mls/hr UNSCH PRN IV 08/01/17 08:30 (Mag-Ox) 800 mg UNSCH PRN PO 08/01/17 08:30 Sodium Phosphate 30 mmol/Sodium Chloride 260 ml @ 43.333 mls/ hr UNSCH PRN IV 08/01/17 08:30 (K-Phos) 2,000 mg UNSCH PRN PO 08/01/17 08:30 Potassium Phosphate 30 mmol/ Sodium Chloride 260 ml @ 43.333 mls/ hr UNSCH PRN IV 08/01/17 08:30 Vancomycin HCl 1500 mg/Sodium Chloride 515 ml @ 250 mls/hr Q12H IV 08/03/17 17:00 08/05/17 05:47 (Mycostatin Liq) 5 ml QID SWISH-SWAL 08/03/17 18:00 08/05/17 08:19 Cefepime HCl 2000 mg/Sodium Chloride 100 ml @ 200 mls/hr Q8H IV 08/03/17 21:00 08/05/17 05:46 (Lasix Inj) 20 mg BID@09,18 IV PUSH 08/04/17 18:00 08/05/17 08:17 (KCl Powder) 20 meq Q12HR NG 08/04/17 21:00 08/05/17 08:18 (Duoneb Neb) 1 ampule Q6HR NEB NEB 08/04/17 16:00 08/05/17 07:30 (Protonix Inj) 40 mg Q24H IV PUSH 08/04/17 16:00 08/04/17 16:04 ([facility] Ordered Lab Info) SPECIFIC LAB TO BE DRAWN:VANCO TROUGH DATE TO BE DRTy. ONCE ONCE .XX 08/06/17 16:45 08/06/17 16:46 Vital Signs / I&O Vital Signs Date Time Temp Pulse Resp B/P (MAP) Pulse Ox O2 Delivery O2 Flow Rate FiO2 08/05/17 08:00 105 18 08:00 100.1 103 27 136/64 (88) 97 18 08:00 30 18 07:30 30 18 07:30 96 30 08/05/18 06:00 90 18 04:02 96 30 08/05/18 04:00 88 18 04:00 30 08/05/17 04:00 98.7 80 22 118/60 (79) 98 18 02:00 92 18 00:00 98.8 87 22 132/57 (82) 98 18 00:00 30 08/05/17 00:00 87 18 22:00 85 18 20:00 94 08/04/18 20:00 30 08/04/17 20:00 98.9 94 25 134/68 (90) 97 18 19:59 97 30 08/04/18 18:00 89 18 16:00 99.0 99 23 144/88 (106) 98 18 16:00 99 08/04/18 16:00 30 18 15:40 99 30 18 14:00 89 18 12:00 102 18 12:00 98.9 102 23 150/75 (100) 98 18 12:00 35 08/04/18 11:31 98 35 I/O 08/04/18 08/04/18 08/04/18 //18 //18 08/05/17 07:00 15:00 23:00 07:00 15:00 23:00 Intake Total 1237.5 ml 100 ml 729.6 ml 619 ml Output Total 1950 ml 3150 ml 1650 ml Balance -712.5 ml 100 ml -2420.4 ml -1031 ml IV Total 1237.5 ml 100 ml 673.6 ml Tube Feeding 56 ml 419 ml Other 200 ml Output Urine Total 1950 ml 3150 ml 1650 ml Drainage Total 0 ml 0 ml 0 ml # Bowel Movements 0 1 1 Physical Exam GENERAL: SKIN: Warm and dry. HEAD: Normocephalic. EYES: No scleral icterus. No injection or drainage. NECK: Supple, trachea midline. No JVD or lymphadenopathy. CARDIOVASCULAR: Regular rate and rhythm without murmurs, gallops, or rubs. RESPIRATORY: Breath sounds equal bilaterally. No accessory muscle use. GASTROINTESTINAL: Abdomen soft, non-tender, nondistended. MUSCULOSKELETAL: No cyanosis, or edema. BACK: Nontender without obvious deformity. No CVA tenderness. Laboratory Laboratory Tests Test 08/04/17 16:40 08/05/17 06:00 Vancomycin Level Trough 18.1 MCG/ML White Blood Count 13.2 TH/MM3 Red Blood Count 3.07 MIL/MM3 Hemoglobin 9.8 GM/DL Hematocrit 29.2 % Mean Corpuscular Volume 95.0 FL Mean Corpuscular Hemoglobin 31.9 PG Mean Corpuscular Hemoglobin Concent 33.5 % Red Cell Distribution Width 13.7 % Platelet Count 351 TH/MM3 Mean Platelet Volume 8.1 FL Blood Urea Nitrogen 21 MG/DL Creatinine 0.60 MG/DL Random Glucose 117 MG/DL Total Protein 5.8 GM/DL Albumin 2.2 GM/DL Calcium Level 8.0 MG/DL Phosphorus Level 2.8 MG/DL Magnesium Level 2.2 MG/DL Alkaline Phosphatase 65 U/L Aspartate Amino Transf (AST/SGOT) 28 U/L Alanine Aminotransferase (ALT/SGPT) 68 U/L Total Bilirubin 0.3 MG/DL Direct Bilirubin 0.1 MG/DL Sodium Level 147 MEQ/L Potassium Level 3.3 MEQ/L Chloride Level 112 MEQ/L Carbon Dioxide Level 26.6 MEQ/L Anion Gap 8 MEQ/L Estimat Glomerular Filtration Rate 135 ML/MIN Indirect Bilirubin 0.2 MG/DL Ammonia 50 MCMOL/L Total Creatine Kinase 145 U/L Amylase Level 100 U/L Imaging Last [address] 08/05/17 0600 Signed Impressions: Service Date/Time: Saturday, August 05, 2017 04:53 - CONCLUSION: 1. Decreasing brain edema and mass effect. Multiple evolving infarcts as above. Previous right frontal ventriculostomy tube placement and occipital craniotomy. Ananda Messina MD Chest X-Ray 08/05/17 0600 Signed Impressions: Service Date/Time: Saturday, August 05, 2017 03:25 - CONCLUSION: 1. Improved basilar airspace disease since August 02. Ananda Messina MD Assessment and Plan Problem List: (1) Toxic metabolic encephalopathy ICD Codes: G92 - Toxic encephalopathy (2) Tetrahydrocannabinol (THC) use disorder, mild, abuse ICD Codes: F12.10 - Cannabis abuse, uncomplicated (3) Encephalopathy ICD Codes: G93.40 - Encephalopathy, unspecified (4) Stroke ICD Codes: I63.9 - Cerebral infarction, unspecified (5) Chronic, continuous use of opioids ICD Codes: F11.90 - Opioid use, unspecified, uncomplicated (6) Cocaine use ICD Codes: F14.90 - Cocaine use, unspecified, uncomplicated Assessment and Plan 1.) Cleared by neurosurgery for AKILAH, not sure if findings will exchange clerk as neurologic prognosis appears poor, d/w ID 08/04/17; AKILAH not currently indicated, d/w nurse at bedside 08/05/17 Navid Corrales MD August 05, 2017 10:10
--- NOTE | 2017-08-05 10:48 | HHI.NSPN ---
History Chief Complaint: multifocal infarct. Interval History Patient on continuous monitoring. ICP has remained within normal range for the past 24 hours. Clinically the patient is unchanged Exam Results Vital Signs Date Time Temp Pulse Resp B/P (MAP) Pulse Ox O2 Delivery O2 Flow Rate FiO2 08/05/17 10:00 108 08/05/17 08:00 100.1 27 136/64 (88) 97 08/05/17 08:00 30 Intake and Output 08/05/17 08/05/17 08/06/17 08:00 16:00 00:00 Intake Total 619 ml Output Total 1650 ml Balance -1031 ml Physical Examination Patient opens eyes slightly. Tends to track. Tracheostomy in place Does not follow commands withdraws with minimal response ICP has remained below 20 for the past 24 hours. Lab, Micro, Other Results CT reviewed. Cerebellar infarcts as previously described. Some effacement of the fourth ventricle. Ventriculostomy in place. Ventricles appear of normal size Medical Decision Making Impression and Plan Patient essentially unchanged. ICP has remained within normal range. Ventricles have remained of normal size despite clamping of ventriculostomy May consider removal of ventriculostomy Hipolito Simmons MD August 05, 2017 10:48
--- NOTE | 2017-08-05 15:33 | HHI.CCPN ---
Subjective Remarks/Hospital Course This is a 66-year-old male. Date of admission 07/20/2017. Past medical history includes hypertension, hyperlipidemia, COPD with ongoing tobacco abuse, peptic ulcer disease and anxiety. He also has history of lumbar stenosis, degenerative joint disease of the back and cervical spine. He presents to [facility] with the following history. 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 According to his at bedside, patient is drug tested. Patient returned home from work on Sunday after his 30 day work schedule. Patient was changing the tire of a bike friend yesterday. Patient returned home in no acute distress. Today, patient was tired and was sleeping all day. Initially patient had similar symptoms at lunch. When the attempted to wake him up later this evening patient be was nonresponsive with a weak pulse. She attempted to use ammonia without response. At that time EMS was called and patient was transferred to [facility]. Patient was noted to be an acute change with a creatinine of 3.8. Baseline is normal. Potassium is 7.4 without EKG changes. Patient received bicarbonate, insulin/D50, calcium and Kayexalate in the ED. Repeat potassium 3 hours. Patient is making urine and appears concentrated. UA is pending. Patient leukocytosis 13,000. CPK was 5000. Lactic acid was 2.6. Urine drug screen revealed positive for opiates, amphetamines, benzodiazepines, THC and cocaine. Head CT is currently pending. Due to altered mental status patient was admitted after receiving 20 mg etomidate and 100 mg succinylcholine by ED physician. Patient also received 4 mg of midazolam and after which patient became hypotensive is currently receiving 3 L normal saline wide open. Head CT is currently pending. Patient received clindamycin along with piperacillin/ tazobactam in the ED. 07/21: Overnight the patient required to protamine infusion low-dose currently being weaned off. The patient continues on fentanyl and propofol infusion for ventilator synchrony. Patient's undergoing MRI evaluation results pending. The patient was noted to have significant elevation in creatinine kinase the patient is bolused 1 L IV fluids increase in normal saline 200 cc/hr. Lactic acid downtrending will continue to trend creatinine noted to be decreasing. 07/22: Currently afebrile. Off all vasopressors. We will switch to LR at 200 cc an hour. Recheck BMP this afternoon. Moving all 4 x-rays spontaneously right upper extremity less. Opens eyes but not following commands. Positive gag and corneal reflex. 07/23: Currently on dexmedetomidine drip at 0.7 mg/kg/h. Minimal response to distinguish. Will hold at the present time and reassess neurological condition. EEG showed no epileptiform activity. Tolerating tube feeding. No bowel movement since admission. Currently afebrile. 07/24: Per nursing staff patient was off sedation over the night and he woke up and followed some simple commands, but due to agitation, hypertension and tachycardia patient was restarted on sedation. He is currently on Precedex at 1 , tolerating CPAP, sedated. T-max of 99. I/O 3029/1451. 07/25: No events over the night. This morning while attempting CPAP trial patient became rigid, unresponsive, with gaze deviation, tachypneic tachycardic and hypertensive, suggesting seizure activity. Patient was immediately given Ativan 2 mg 1 with resolution of episode. Neurology was contacted and plan for EEG and CT head as well as propofol infusion. No family present at bedside. T-max of 100.7 over the night. Urine output 2300 mL's over the last 24 hours. 07/26: EVD placed yesterday for declining mental status with hydrocephalus and severe cerebellar edema. this AM, extensor posturing. supratentorial ICPs controlled, but cerebellar edema persists. discussed with Dr. Castillo: csf could be consistent with encephalitis. d/w Dr. Barrow: will need posterior fossa decompression. 07/27: no improvements in mental status. s/p suboccipital crani yesterday. remains intermittently on cardene and levophed to maintain cpp. ICP controlled. brain biopsies pending. 07/28: Osmolality suitably concentrated. ICP well controlled. Maintaining head up position. On attempted CPAP trial patient has 25 second periods of apnea. Unstable neurological status we will not stress him with extended spontaneous breathing trials. 07/29: Requiring Cardene still to maintain systolic blood pressure less than 160. Markedly edematous and will need to start active diuresis. No change in neurologic function. Apnea episodes persist. 07/30: off cardene. still grossly volume overloaded. neuro exam remains poor. 07/31: no improvement in mental status. wbc slight uptrend. afebrile. awaiting MRI for prognostication and to re-evaluate edema. adequate diuresis yesterday. 08/01: encephalopathy persists. wbc uptrending but afebrile. unable to obtain MRI due to elevated ICP, cannot tolerate lying flat. would benefit from MRI when able. diuresing well. 08/02: low grade fevers persist. wbc still high. on empiric abx. ventric has been in x 7 days: with fever and poor neurologic exam, will send CSF for cell count and culture. no change in mental status. 08/03: CSF cultures pending. no change in neuro exam. wbc still high and uptrending. challenging drain, currently at [id number] 08/04: Afebrile. Positive gag and cough. Ventricular drain currently at 20 cm H2O. Afebrile. PEG tube placed today. Subjective: 08/05: Afebrile. CT brain today revealed decreased brain edema. Multiple infarcts including posterior fossa, basal ganglia, left occipital and temporal regions. T-max 100.1. WBCs continue to be elevated.. Blood cultures growing gram-negative rods currently. Objective Vital Signs Date Time Temp Pulse Resp B/P (MAP) Pulse Ox O2 Delivery O2 Flow Rate FiO2 08/05/17 14:00 105 08/05/17 12:00 99.0 23 113/59 (77) 98 08/05/17 12:00 30 Intake and Output 08/05/17 08/05/17 08/05/17 07:59 15:59 23:59 Intake Total 619 ml Output Total 1650 ml Balance -1031 ml Result Diagram: 08/05/17 0600 08/05/17 0600 Other Results Microbiology Date/Time Source Procedure Growth Status 08/01/17 13:52 Blood Peripheral Aerobic Blood Culture - Final Staph Sp Coagulase Negative Resulted 08/01/17 13:52 Anaerobic Blood Culture - Preliminary Gram Negative Mazin Resulted 08/02/17 15:15 Cerebral Spinal Fluid Lumbar Puncture Gram Stain - Final Complete 08/02/17 15:15 Cerebral Spinal Fluid Lumbar Puncture CSF Culture - Final NO GROWTH IN 72 HOURS Complete 07/27/17 16:30 Sputum Endotracheal Gram Stain - Final Complete 07/27/17 16:30 Sputum Endotracheal Sputum Culture - Final LIGHT GROWTH NORMAL RESPIRATORY LUBA Complete 07/20/17 22:50 Urine Catheterized Urine Legionella Antigen - Final PRESUMPTIVE NEGATIVE FOR LEGIONELLA P... Complete 07/20/17 22:50 Urine Catheterized Urine Streptococcus pneumoniae Antigen (M - Final PRESUMPTIVE NEGATIVE FOR STREPTOCOCCU... Complete 07/26/17 14:19 Wound Other Fungal Smear - Final NO FUNGAL ELEMENTS SEEN. Resulted 07/26/17 14:19 Wound Other Fungal Culture - Preliminary NO GROWTH IN 1 WEEK Resulted Imaging Last Impressions Head CT 08/05/17 0600 Signed Impressions: Service Date/Time: Saturday, August 05, 2017 04:53 - CONCLUSION: 1. Decreasing brain edema and mass effect. Multiple evolving infarcts as above. Previous right frontal ventriculostomy tube placement and occipital craniotomy. Ananda Messina MD Chest X-Ray 08/05/17 0600 Signed Impressions: Service Date/Time: Saturday, August 05, 2017 03:25 - CONCLUSION: 1. Improved basilar airspace disease since August 02. Ananda Messina MD Abdomen X-Ray 07/27/17 0000 Signed Impressions: Service Date/Time: Thursday, July 27, 2017 20:37 - CONCLUSION: NG tube coiled in the lower thoracic esophagus. Oumar Bray Jr., MD Head/Brain Mag Res Venography 07/25/17 0000 Signed Impressions: Service Date/Time: Tuesday, July 25, 2017 19:54 - CONCLUSION: Patent dural sinuses. Lonnie Munguia MD Brain MRI 07/25/17 0000 Signed Impressions: Service Date/Time: Tuesday, July 25, 2017 10:37 - CONCLUSION: Worsening brain appearance with developing hydrocephalus which is presumably related to increasing edema in the posterior fossa. See above discussion. Lonnie Lock MD Neck Magnetic Resonance Angiography 07/21/17 0000 Signed Impressions: Service Date/Time: Friday, July 21, 2017 08:40 - CONCLUSION: No acute neck arteriovascular abnormality is identified. There is no significant stenosis within either internal carotid artery. Lonnie Ross MD Head Magnetic Resonance Angiography 07/21/17 0000 Signed Impressions: Service Date/Time: Friday, July 21, 2017 08:40 - CONCLUSION: No acute intracranial vascular abnormality is identified. Lonnie Ross MD Abdomen Ultrasound 07/21/17 0000 Signed Impressions: Service Date/Time: Friday, July 21, 2017 15:47 - CONCLUSION: Cholelithiasis. No gallbladder wall thickening or pericholecystic fluid. Victor Manuel Barros MD Procedures Right hole ventriculostomy Objective Remarks General -66-year-old male currently resting in bed HEENT -ventricular size/right frontal clean dry and intact without signs of infection. Pupils equal, dilated about 8 mm bilaterally, reactive, sclerae anicteric, neck supple, no nuchal rigidity. Tracheostomy site is clean dry and intact CV - normal rate, regular rhythm. sinus. no JVD Chest - equal chest rise. With symmetrical excursion.. Decreased breath sounds both bases. Abdomen - soft, non-tender, non-distended, no guarding. PEG tube in left lower quadrant is clean dry and intact Skin - no rashes, no cyanosis, multiple tattoos bilateral upper extremities and thorax Extremities - warm and well perfused, no edema, + peripheral pulses, no clubbing Neuro - off sedation, unresponsive, pupils equal and reactive, extensor posturing. Urinary Catheter: Yes Assessment to: Continue Adler insert reason: Prolonged Immobilization Vascular Central Line Catheter: No Assessment to: Continue A/P Assessment and Plan Neuro/Psych: Toxic metabolic encephalopathy Polysubstance abuse disorder - UDS positive for opiates, benzos, amphetamines, THC and cocaine Depression Anxiety disorder Possible hypoxic ischemic encephalopathy Concern for new onset seizure Malignant Cerebellar edema Elevated ICP s/p suboccipital crani 07/26 for decompression frequent neuro checks goal RASS -0 neurology: Dr. Castillo following neurosurgery: Dr. Barrow following. Currently levetiracetam 750 mg IV every [address] brain decrease brain edema. Right ventriculostomy. Evolving infarcts the posterior fossa, base again, temporal and left occipital region. Decreased mass-effect on posterior fossa/fourth and lateral ventricle CT brain 07/27 - Decrease in ventricular size since July 25. Extensive low attenuation and swelling in both occipital lobes and also in the periventricular region, basal ganglia and focally in the right occipital lobe. Differential diagnosis includes edema or evolving infarcts. There is mass effect on the brainstem and posterior fossa with effacement of the fourth ventricle. CT brain 07/21 There is patchy mild diminished attenuation in centrum semi-ovale bilaterally. There is mild heterogeneous diminished density in the genu region of internal capsules and globus pallidus bilaterally. There is vague diminished density in the cerebellar hemispheres bilaterally. There is no evidence of intracranial mass or hemorrhage. There is no abnormal extra-axial fluid accumulation or shift present. 07/21 MRI brain-Multifocal areas of restricted diffusion/recent ischemia within the centrum semiovale bilaterally, bilateral occipital lobes, bilateral basal ganglia, bilateral temporal lobes, and bilateral cerebellar hemispheres. Findings could be related to global anoxic event or less likely embolic phenomenon. 07/21 EEG revealed no epileptic activity 07/21-MRA brain/neck -no acute findings UDS + opiates, amphetamines, benzodiazepines, THC and cocaine CSF studies all negative cytology and bacterial infection brain biopsies of the cerebellum revealed there is necrosis and loss of neurons of the Purkinje cell layer EVD placed 07/25 by Pushpa. Currently -20 cm H2O. 0 cc past 24 hours documented. 11 cc prior CV: History of essential hypertension Hyperlipidemia Lactic acidosis -resolved Sinus bradycardia- secondary to elevated ICP- resolved Holding valsartan 320 mg p.o. daily due to hypotension/acute kidney injury Holding rosuvastatin 10 mg p.o. q. Sunday/Sunday/Sunday due to elevated LFTs. Resume when clinically indicated. amlodipine 5mg po twice daily and hydralazine 100 mg 3 times daily for hypertension TTE results reviewed, LV size normal, EF of 55%. AKILAH cleared for cardiology Resp: Acute hypoxemic and hypercarbic respiratory failure Tobacco use disorder Continue PRVC ventilation Ventilator bundle Albuterol/ipratropium aerosols every 6 hours with albuterol aerosol every 2 hours as needed dyspnea budesonide 0.5/2 1 inhalation twice daily since on budesonide/formoterol 160/ 4.5 1 puff twice daily at home along with albuterol inhaler twice daily no weaning of mechanical ventilation until mental status and ICP improves wean fio2 for goal spo2 > 90% hob elevated Tracheostomy 07/28. GI: Elevated transaminases -slowly trending down Rhabdomyolysis -improving, urine output is adequate, CPK trending down Cholelithiasis Elevated ammonia 07/21 Liver ultrasound revealed cholelithiasis Hepatitis panel-negative Tube feeding with Jevity 1.5 goal 65 cc are recommended and will resume Famotidine 20 mg twice daily for GI prophylaxis Docusate/senna 1 tablet daily for bowel regimen with polyethylene glycol 17 g daily and lactulose 30 cc twice daily Placement of gastric tube/percutaneous endoscopic by Dr. Rooney 08/04 Renal/: Acute kidney injury d/c adler 08/03 continue forced diuresis currently on furosemide 20 mg IV twice daily since . Decrease to daily today 08/05 Renal ultrasound revealed no hydronephrosis bilaterally 07/21 Urine eosinophils negative. Avoid nephrotoxic drugs Endo: Sliding scale insulin with NovoLog with Accu-Cheks every 6 hours to maintain euglycemia/low regimen Hemoglobin A1c documented at 6.1 Heme: Normocytic anemia Leukocytosis Monitor CBC daily. Follow trend hold SQH ID: Staph epi/coag negative staph bacteremia Received piperacillin/tazobactam and clindamycin ED for possible aspiration ID involved and following. Previously on ceftriaxone for staph in 2/ bottles blood cultures. Vancomycin, cefepime current regimen Pertinent cultures 08/01 -blood cultures -coag negative staph and gram-negative mazin 07/28 -blood cultures staph epi 07/27 -blood cultures -staph epi- Blood cultures 2, UA, sputum 07/21 all pending/no growth to date Strep pneumo, Legionella urine antigens- 08/02 - CSF cultures pending, currently NGTD. FEN: Hypernatremia Hypokalemia -acute Hypophosphatemia -resolved Electrolyte protocol Scheduled potassium chloride 20 mEq twice daily while on furosemide MSK: History of multiple lumbar/cervical spine surgeries PT evaluate and treat Access adler: will d/c 08/02. Currently with condom catheter 07/25 EVD Prophylaxis -GI -lansoprazole -DVT -SCD/ Heparin SQ held. Resume when okay with neurosurgery Level 2 follow-up Singh Romero MD August 05, 2017 15:33
[2017-08-05] MEDS ORDERED: POTASSIUM CHLORIDE 20 MEQ PWD PACKET PO ONE (16:00)
[2017-08-05] MEDS: FREE WATER G-TUBE SCH ×2 (16:05→20:00)
--- NOTE | 2017-08-05 17:08 | RADRPT ---
EXAM DATE/TIME: 08/05/2017 16:06 [place] COMPARISON: No previous studies available for comparison. INDICATIONS : Bilateral leg swelling. MEDICAL HISTORY : Hypercholesterolemia. Hypertension. Chronic obstructive pulmonary disease. Asthma. GERD. Numbness/tin gling bilat feet. SURGICAL HISTORY : Appendectomy. Colectomy. Rotator cuff. Laminectomy. ENCOUNTER: Initial ACUITY: 1 day PAIN SCORE: Non-responsive LOCATION: Bilateral leg. POPLITEAL VEIN Yes TECHNIQUE: Venous ultrasound of the left and right leg was performed from the inguinal ligament to the proximal calf. Real-time, color Doppler and spectral tracing, compression and augmentation techniques were us ed. FINDINGS: RIGHT LEG: There is normal compressibility of the deep venous system from the inguinal region to the proximal ca lf. No echogenic clot is seen in the lumen of the common femoral, femoral, popliteal, and posterior tibial veins. There is a normal response of the venous system to proximal and distal augmentation an d respiration. LEFT LEG: There is normal compressibility of the deep venous system from the inguinal region to the proximal ca lf. No echogenic clot is seen in the lumen of the common femoral, femoral, popliteal, and posterior tibial veins. There is a normal response of the venous system to proximal and distal augmentation an d respiration. CONCLUSION: 1. No sonographic evidence for lower extremity DVT. Sanhcez Canada MD on August 05, 2017 at 17:06 Board Certified Radiologist. This report was verified electronically.
--- NOTE | 2017-08-05 19:23 | HHI.IDPN ---
Subjective Subjective Remarks neurologically no improvement, but per opens eyes more remains on vent intermittent low grade fever up to 100.0 GNB in 1 blood clx also new + blood clx for coag neg stapn Antibiotics cefepime vancomycin Lines Line sites with no e.o infection Past Medical History reviewed Allergies: Coded Allergies: No Known Allergies (Verified Allergy, Unknown, 07/20/17) Objective . Vital Signs Date Time Temp Pulse Resp B/P (MAP) Pulse Ox O2 Delivery O2 Flow Rate FiO2 08/05/17 18:00 79 08/05/17 16:00 30 08/05/17 16:00 99.1 80 27 106/55 (72) 99 08/05/17 16:00 80 08/05/17 14:00 105 08/05/17 12:00 99.0 108 23 113/59 (77) 98 08/05/17 12:00 108 08/05/17 12:00 30 08/05/17 11:00 30 08/05/17 11:00 97 30 08/05/17 10:00 108 08/05/17 08:00 105 08/05/17 08:00 100.1 103 27 136/64 (88) 97 08/05/17 08:00 30 08/05/17 07:30 30 08/05/17 07:30 96 30 08/05/17 06:00 90 08/05/17 04:02 96 30 08/05/17 04:00 88 08/05/17 04:00 30 08/05/17 04:00 98.7 80 22 118/60 (79) 98 08/05/17 02:00 92 08/05/17 00:00 98.8 87 22 132/57 (82) 98 08/05/17 00:00 30 08/05/17 00:00 87 08/04/17 22:00 85 08/04/17 20:00 94 08/04/17 20:00 30 08/04/17 20:00 98.9 94 25 134/68 (90) 97 08/04/17 19:59 97 30 08/05/17 08/05/17 08/06/17 15:00 23:00 07:00 Intake Total 200 ml 730 ml Output Total 1550 ml Balance 200 ml -820 ml IV Total 200 ml Tube Feeding 530 ml Other 200 ml Output Urine Total 1550 ml Drainage Total 0 ml # Bowel Movements 4 . Laboratory Tests Test 08/04/17 05:24 08/05/17 06:00 White Blood Count 18.3 TH/MM3 13.2 TH/MM3 Red Blood Count 3.33 MIL/MM3 3.07 MIL/MM3 Hemoglobin 10.4 GM/DL 9.8 GM/DL Hematocrit 31.4 % 29.2 % Mean Corpuscular Volume 94.4 FL 95.0 FL Mean Corpuscular Hemoglobin 31.2 PG 31.9 PG Mean Corpuscular Hemoglobin Concent 33.1 % 33.5 % Red Cell Distribution Width 14.0 % 13.7 % Platelet Count 350 TH/MM3 351 TH/MM3 Mean Platelet Volume 8.1 FL 8.1 FL Laboratory Tests Test 08/04/17 05:24 08/05/17 06:00 Blood Urea Nitrogen 24 MG/DL 21 MG/DL Creatinine 0.61 MG/DL 0.60 MG/DL Random Glucose 106 MG/DL 117 MG/DL Calcium Level 8.0 MG/DL 8.0 MG/DL Sodium Level 147 MEQ/L 147 MEQ/L Potassium Level 3.5 MEQ/L 3.3 MEQ/L Chloride Level 113 MEQ/L 112 MEQ/L Carbon Dioxide Level 24.5 MEQ/L 26.6 MEQ/L Anion Gap 10 MEQ/L 8 MEQ/L Estimat Glomerular Filtration Rate 133 ML/MIN 135 ML/MIN Total Protein 5.8 GM/DL Albumin 2.2 GM/DL Phosphorus Level 2.8 MG/DL Magnesium Level 2.2 MG/DL Alkaline Phosphatase 65 U/L Aspartate Amino Transf (AST/SGOT) 28 U/L Alanine Aminotransferase (ALT/SGPT) 68 U/L Total Bilirubin 0.3 MG/DL Direct Bilirubin 0.1 MG/DL Indirect Bilirubin 0.2 MG/DL Ammonia 50 MCMOL/L Total Creatine Kinase 145 U/L Amylase Level 100 U/L Microbiology Date/Time Source Procedure Growth Status 08/05/17 15:53 Sputum Endotracheal Gram Stain Pending Received 08/05/17 15:53 Sputum Endotracheal Sputum Culture Pending Received Imaging Last Impressions Head CT 08/05/17 0600 Signed Impressions: Service Date/Time: Saturday, August 05, 2017 04:53 - CONCLUSION: 1. Decreasing brain edema and mass effect. Multiple evolving infarcts as above. Previous right frontal ventriculostomy tube placement and occipital craniotomy. Ananda Messina MD Chest X-Ray 08/05/17 0600 Signed Impressions: Service Date/Time: Saturday, August 05, 2017 03:25 - CONCLUSION: 1. Improved basilar airspace disease since August 02. Ananda Messina MD Lower Extremity Ultrasound 08/05/17 0000 Signed Impressions: Service Date/Time: Saturday, August 05, 2017 16:06 - CONCLUSION: 1. No sonographic evidence for lower extremity DVT. Sanchez Canada MD Abdomen X-Ray 07/27/17 0000 Signed Impressions: Service Date/Time: Thursday, July 27, 2017 20:37 - CONCLUSION: NG tube coiled in the lower thoracic esophagus. Oumar Bray Jr., MD Head/Brain Mag Res Venography 07/25/17 0000 Signed Impressions: Service Date/Time: Tuesday, July 25, 2017 19:54 - CONCLUSION: Patent dural sinuses. Lonnie Munguia MD Brain MRI 07/25/17 Signed Impressions: Service Date/Time: Tuesday, July 25, 2017 10:37 - CONCLUSION: Worsening brain appearance with developing hydrocephalus which is presumably related to increasing edema in the posterior fossa. See above discussion. Lonnie Lock MD Neck Magnetic Resonance Angiography 07/21/17 Signed Impressions: Service Date/Time: Friday, July 21, 2017 08:40 - CONCLUSION: No acute neck arteriovascular abnormality is identified. There is no significant stenosis within either internal carotid artery. Lonnie Ross MD Head Magnetic Resonance Angiography 07/21/17 Signed Impressions: Service Date/Time: Friday, July 21, 2017 08:40 - CONCLUSION: No acute intracranial vascular abnormality is identified. Lonnie Ross MD Abdomen Ultrasound 07/21/17 Signed Impressions: Service Date/Time: Friday, July 21, 2017 15:47 - CONCLUSION: Cholelithiasis. No gallbladder wall thickening or pericholecystic fluid. Victor Manuel Barros MD Physical Exam CONSTITUTIONAL/GENERAL: This is an obese elderly patient, in no apparent distress. On vent TUBES/LINES/DRAINS: SKIN: No jaundice, rashes, or lesions. Skin temperature appropriate. Not diaphoretic. HEAD: Ventric in place R parietal area with clear CSF EYES: Pupils equal and round and reactive. Extraocular motions intact. No scleral icterus. No injection or drainage. Fundi not examined. ENT: Hearing not tested Nose without bleeding or purulent drainage. Throat without visible erythema, exudates, masses, or lesions. Orally intubated CARDIOVASCULAR: Regular rate and rhythm without murmurs, gallops, or rubs. No JVD. Peripheral pulses symmetric. RESPIRATORY/CHEST: Symmetric, unlabored respirations. Clear to auscultation. Breath sounds equal bilaterally. No wheezes, rales, or rhonchi. GASTROINTESTINAL: Abdomen soft, non-tender, nondistended. GENITOURINARY: Without palpable bladder distension. Garner catheter in place with clear yellow urine. + scrotum edema MUSCULOSKELETAL: Extremities without clubbing, cyanosis, remains quite edematous. No joint tenderness or effusion noted. No calf tenderness. No mottling or clubbing. NEUROLOGICAL: Unresponsive eyes closed PSYCHIATRIC: Unable to assess Assessment & Plan Remarks Abnormal CSF - no r/o meningoencephalitis - probably combination of embolic strokes and anoxia t - Acute VDRF ARF 2/2 rhabdo: resolved New fever - resolved Likely PNA: sputum purulent - clx with nl resp olga lidia High grade Staph epi bacteremia Leukocytosis - can be from steroids worse low grade fever GNB bacteremia - new ? anaerobe New coag nex staph bacteremia x 2 morphologies: cw contaminant Recs: dc cefepime srtrt zosybn Continue Vanco IV (target 15-20) fu P clx fu WBC dw Reva Yates MD August 05, 2017 19:23
[2017-08-05] MEDS: PIPERACIL-TAZO 3.375 GM PREMIX 50 ML IV SCH (19:54)
[2017-08-05] MEDS ORDERED: ONDANSETRON ODT 4 MG TAB PRN (23:15)
[2017-08-06] VITALS (18 sets, daily range): BP systolic 98–133; BP diastolic 52–64; PULSE 68–96; RESP 20–29; TEMP 98.7–99.2; O2SAT 98–100
[2017-08-06] MEDS: PIPERACIL-TAZO 3.375 GM PREMIX 50 ML IV SCH ×3 (03:20→14:37)
[2017-08-06] MEDS: FREE WATER G-TUBE SCH ×2 (03:21)
[2017-08-06] MEDS: CHLORHEXIDINE GLUCONATE 2 % 1 PACK (2 CLOTHS) TOP SCH (03:21)
[2017-08-06] MEDS: hydrALAZINE HCL 50 MG TAB PO SCH ×3 (03:21→18:35)
[2017-08-06] MEDS: RESP: ALBUTEROL 2.5 MG/IPRATROPIUM 0.5 MG NEB (SCH) NEB ×4 (04:51→20:31)
--- NOTE | 2017-08-06 05:22 | RADRPT ---
EXAM DATE/TIME: 08/06/2017 03:37 [place] COMPARISON: CHEST SINGLE AP, August 05, 2017, 3:25. INDICATIONS : Short of breath. MEDICAL HISTORY : Diabetes mellitus type II. Hypertension.Chronic obstructive pulmonary disease. SURGICAL HISTORY : Colon resection. ENCOUNTER: Subsequent ACUITY: 1 week PAIN SCORE: 0/10 LOCATION: Bilateral chest FINDINGS: 2 AP semierect portable views of the chest was obtained and again demonstrates a tracheostomy tube in place. There are no confluent infiltrates or effusions are identified. There is overlying electrocar diogram leads and oxygen tubing. The heart size is within normal limits with no perihilar edema. Ther e are mild atherosclerotic calcifications in the aorta. CONCLUSION: 1. No confluent infiltrates or effusions are not identified. 2. The tracheostomy tube remains in place. Buck Henry MD on August 06, 2017 at 5:19 Board Certified Radiologist. This report was verified electronically.
[2017-08-06] MEDS: VANCOMYCIN INJ 1,500 MG in SODIUM CHLORID 0.9% 500 ML INJ 500 ML IV SCH ×2 (05:23→19:44)
[2017-08-06 05:24] LABS: BICARBONATE 26.3 MEQ/L (21.0-32.0); CREATININE 0.55 MG/DL (0.60-1.30); MAGNESIUM 2.5 MG/DL (1.5-2.5); PHOSPHORUS 2.9 MG/DL (2.5-4.9)
[2017-08-06] MEDS: INSULIN ASPART SUPPLEMENTAL SCALE SQ SCH ×4 (06:00→18:00)
[2017-08-06] MEDS: RESP: BUDESONIDE 0.5 MG/2 ML NEB NEB SCH ×2 (07:49→20:30)
[2017-08-06] MEDS: CHLORHEXIDINE 0.12% (ORAL KIT) 15 ML CUP MT SCH ×2 (08:14→20:00)
[2017-08-06] MEDS: NYSTATIN SUSP 500,000 U/5 ML CUP SWISH-SWAL SCH ×4 (08:18→20:24)
[2017-08-06] MEDS: LISINOPRIL 10 MG TAB PO SCH (08:18)
[2017-08-06] MEDS: LANSOPRAZOLE SOLUTAB 30 MG TAB NG SCH (08:18)
[2017-08-06] MEDS: FUROSEMIDE 40 MG/4 ML VIAL IV PUSH SCH (08:20)
[2017-08-06] MEDS: ARTIFICIAL TEARS OPTH SOLN 15 ML BTL EACH EYE SCH ×3 (08:20→18:35)
[2017-08-06] MEDS: SODIUM CHLORIDE 0.9% FLUSH 10 ML FLUSH IV FLUSH SCH ×2 (08:20→20:24)
[2017-08-06] MEDS: POTASSIUM CHLORIDE 20 MEQ PWD PACKET NG SCH ×2 (08:21→20:24)
[2017-08-06] MEDS: LACTULOSE SYRUP 20 GM/30 ML CUP PO SCH ×2 (08:21→20:25)
[2017-08-06] MEDS: LACTOBACILLUS ACIDOPHILUS TAB PO SCH ×3 (08:21→18:40)
[2017-08-06] MEDS: DOCUSATE SODIUM 50 MG/SENNA 8.6 MG TAB PO SCH (08:22)
[2017-08-06] MEDS: POLYETHYLENE GLYCOL 17 GM PKG PO SCH (08:22)
[2017-08-06] MEDS: amLODIPine BESYLATE 5 MG TAB PO SCH ×2 (08:22→20:25)
--- NOTE | 2017-08-06 08:47 | HHI.CCPN ---
Subjective Remarks/Hospital Course This is a 66-year-old male. Date of admission 07/20/2017. Past medical history includes hypertension, hyperlipidemia, COPD with ongoing tobacco abuse, peptic ulcer disease and anxiety. He also has history of lumbar stenosis, degenerative joint disease of the back and cervical spine. He presents to [facility] with the following history. 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 According to his at bedside, patient is drug tested. Patient returned home from work on Sunday after his 30 day work schedule. Patient was changing the tire of a bike friend yesterday. Patient returned home in no acute distress. Today, patient was tired and was sleeping all day. Initially patient had similar symptoms at lunch. When the attempted to wake him up later this evening patient be was nonresponsive with a weak pulse. She attempted to use ammonia without response. At that time EMS was called and patient was transferred to [facility]. Patient was noted to be an acute change with a creatinine of 3.8. Baseline is normal. Potassium is 7.4 without EKG changes. Patient received bicarbonate, insulin/D50, calcium and Kayexalate in the ED. Repeat potassium 3 hours. Patient is making urine and appears concentrated. UA is pending. Patient leukocytosis 13,000. CPK was 5000. Lactic acid was 2.6. Urine drug screen revealed positive for opiates, amphetamines, benzodiazepines, THC and cocaine. Head CT is currently pending. Due to altered mental status patient was admitted after receiving 20 mg etomidate and 100 mg succinylcholine by ED physician. Patient also received 4 mg of midazolam and after which patient became hypotensive is currently receiving 3 L normal saline wide open. Head CT is currently pending. Patient received clindamycin along with piperacillin/ tazobactam in the ED. 07/21: Overnight the patient required to protamine infusion low-dose currently being weaned off. The patient continues on fentanyl and propofol infusion for ventilator synchrony. Patient's undergoing MRI evaluation results pending. The patient was noted to have significant elevation in creatinine kinase the patient is bolused 1 L IV fluids increase in normal saline 200 cc/hr. Lactic acid downtrending will continue to trend creatinine noted to be decreasing. 07/22: Currently afebrile. Off all vasopressors. We will switch to LR at 200 cc an hour. Recheck BMP this afternoon. Moving all 4 x-rays spontaneously right upper extremity less. Opens eyes but not following commands. Positive gag and corneal reflex. 07/23: Currently on dexmedetomidine drip at 0.7 mg/kg/h. Minimal response to distinguish. Will hold at the present time and reassess neurological condition. EEG showed no epileptiform activity. Tolerating tube feeding. No bowel movement since admission. Currently afebrile. 07/24: Per nursing staff patient was off sedation over the night and he woke up and followed some simple commands, but due to agitation, hypertension and tachycardia patient was restarted on sedation. He is currently on Precedex at 1 , tolerating CPAP, sedated. T-max of 99. I/O 3029/1451. 07/25: No events over the night. This morning while attempting CPAP trial patient became rigid, unresponsive, with gaze deviation, tachypneic tachycardic and hypertensive, suggesting seizure activity. Patient was immediately given Ativan 2 mg 1 with resolution of episode. Neurology was contacted and plan for EEG and CT head as well as propofol infusion. No family present at bedside. T-max of 100.7 over the night. Urine output 2300 mL's over the last 24 hours. 07/26: EVD placed yesterday for declining mental status with hydrocephalus and severe cerebellar edema. this AM, extensor posturing. supratentorial ICPs controlled, but cerebellar edema persists. discussed with Dr. Castillo: csf could be consistent with encephalitis. d/w Dr. Barrow: will need posterior fossa decompression. 07/27: no improvements in mental status. s/p suboccipital crani yesterday. remains intermittently on cardene and levophed to maintain cpp. ICP controlled. brain biopsies pending. 07/28: Osmolality suitably concentrated. ICP well controlled. Maintaining head up position. On attempted CPAP trial patient has 25 second periods of apnea. Unstable neurological status we will not stress him with extended spontaneous breathing trials. 07/29: Requiring Cardene still to maintain systolic blood pressure less than 160. Markedly edematous and will need to start active diuresis. No change in neurologic function. Apnea episodes persist. 07/30: off cardene. still grossly volume overloaded. neuro exam remains poor. 07/31: no improvement in mental status. wbc slight uptrend. afebrile. awaiting MRI for prognostication and to re-evaluate edema. adequate diuresis yesterday. 08/01: encephalopathy persists. wbc uptrending but afebrile. unable to obtain MRI due to elevated ICP, cannot tolerate lying flat. would benefit from MRI when able. diuresing well. 08/02: low grade fevers persist. wbc still high. on empiric abx. ventric has been in x 7 days: with fever and poor neurologic exam, will send CSF for cell count and culture. no change in mental status. 08/03: CSF cultures pending. no change in neuro exam. wbc still high and uptrending. challenging drain, currently at [id number] 08/04: Afebrile. Positive gag and cough. Ventricular drain currently at 20 cm H2O. Afebrile. PEG tube placed today. Subjective: 08/05: Afebrile. CT brain today revealed decreased brain edema. Multiple infarcts including posterior fossa, basal ganglia, left occipital and temporal regions. T-max 100.1. WBCs continue to be elevated.. Blood cultures growing gram-negative rods currently. 08/06: Tolerating CPAP spontaneous breathing trials but requires elevated pressure support in the range of 15-18. Excessive oral secretions will start Levsin. Moves feet spontaneously. Objective Vital Signs Date Time Temp Pulse Resp B/P (MAP) Pulse Ox O2 Delivery O2 Flow Rate FiO2 08/06/17 07:41 30 08/06/17 07:41 100 08/06/17 06:00 80 08/06/17 04:00 99.2 22 98/56 (70) Intake and Output 08/06/17 08/06/17 08/07/17 08:00 16:00 00:00 Intake Total 937 ml Output Total 800 ml Balance 137 ml Result Diagram: 08/05/1759908/06/17 0417 Imaging Last Impressions Head CT 08/05/17599 Signed Impressions: Service Date/Time: Saturday, August 05, 2017 04:53 - CONCLUSION: 1. Decreasing brain edema and mass effect. Multiple evolving infarcts as above. Previous right frontal ventriculostomy tube placement and occipital craniotomy. Ananda Messina MD Chest X-Ray 08/05/17599 Signed Impressions: Service Date/Time: Saturday, August 05, 2017 03:25 - CONCLUSION: 1. Improved basilar airspace disease since August 02. Ananda Messina MD Abdomen X-Ray 07/27/17 Signed Impressions: Service Date/Time: Thursday, July 27, 2017 20:37 - CONCLUSION: NG tube coiled in the lower thoracic esophagus. Oumar Bray Jr., MD Head/Brain Mag Res Venography 07/25/17 Signed Impressions: Service Date/Time: Tuesday, July 25, 2017 19:54 - CONCLUSION: Patent dural sinuses. Lonnie Munguia MD Brain MRI 07/25/17 Signed Impressions: Service Date/Time: Tuesday, July 25, 2017 10:37 - CONCLUSION: Worsening brain appearance with developing hydrocephalus which is presumably related to increasing edema in the posterior fossa. See above discussion. Lonnie Lock MD Neck Magnetic Resonance Angiography 07/21/17 Signed Impressions: Service Date/Time: Friday, July 21, 2017 08:40 - CONCLUSION: No acute neck arteriovascular abnormality is identified. There is no significant stenosis within either internal carotid artery. Lonnie Ross MD Head Magnetic Resonance Angiography 07/21/17 Signed Impressions: Service Date/Time: Friday, July 21, 2017 08:40 - CONCLUSION: No acute intracranial vascular abnormality is identified. Lonnie Ross MD Abdomen Ultrasound 07/21/17 Signed Impressions: Service Date/Time: Friday, July 21, 2017 15:47 - CONCLUSION: Cholelithiasis. No gallbladder wall thickening or pericholecystic fluid. Victor Manuel Barors MD Procedures Right hole ventriculostomy Objective Remarks General -66-year-old male currently resting in bed HEENT -ventricular size/right frontal clean dry and intact without signs of infection. Pupils equal, dilated about 8 mm bilaterally, reactive, sclerae anicteric, neck supple, no nuchal rigidity. Tracheostomy site is clean dry and intact CV - normal rate, regular rhythm. sinus. no JVD Chest - equal chest rise. With symmetrical excursion.. Decreased breath sounds both bases. Abdomen - soft, non-tender, non-distended, no guarding. PEG tube in left lower quadrant is clean dry and intact Skin - no rashes, no cyanosis, multiple tattoos bilateral upper extremities and thorax Extremities - warm and well perfused, no edema, + peripheral pulses, no clubbing Neuro - off sedation, unresponsive, pupils equal and reactive, extensor posturing persists in the upper extremities.. Moves lower extremities spontaneously. 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 Castillo following neurosurgery: Dr. Barrow following. Currently levetiracetam 750 mg IV every [address] brain decrease brain edema. Right ventriculostomy. Evolving infarcts the posterior fossa, base again, temporal and left occipital region. Decreased mass-effect on posterior fossa/fourth and lateral ventricle CT brain 07/27 - Decrease in ventricular size since July 25. Extensive low attenuation and swelling in both occipital lobes and also in the periventricular region, basal ganglia and focally in the right occipital lobe. Differential diagnosis includes edema or evolving infarcts. There is mass effect on the brainstem and posterior fossa with effacement of the fourth ventricle. CT brain 07/21 There is patchy mild diminished attenuation in centrum semi-ovale bilaterally. There is mild heterogeneous diminished density in the genu region of internal capsules and globus pallidus bilaterally. There is vague diminished density in the cerebellar hemispheres bilaterally. There is no evidence of intracranial mass or hemorrhage. There is no abnormal extra-axial fluid accumulation or shift present. 07/21 MRI brain-Multifocal areas of restricted diffusion/recent ischemia within the centrum semiovale bilaterally, bilateral occipital lobes, bilateral basal ganglia, bilateral temporal lobes, and bilateral cerebellar hemispheres. Findings could be related to global anoxic event or less likely embolic phenomenon. 07/21 EEG revealed no epileptic activity 07/21-MRA brain/neck -no acute findings UDS + opiates, amphetamines, benzodiazepines, THC and cocaine CSF studies all negative cytology and bacterial infection brain biopsies of the cerebellum revealed there is necrosis and loss of neurons of the Purkinje cell layer EVD placed 07/25 by [facility]. Currently -20 cm H2O. 0 cc past 24 hours documented. 11 cc prior CV: History of essential hypertension Hyperlipidemia Lactic acidosis -resolved Sinus bradycardia- secondary to elevated ICP- resolved Holding valsartan 320 mg p.o. daily due to hypotension/acute kidney injury Holding rosuvastatin 10 mg p.o. q. Sunday/Sunday/Sunday due to elevated LFTs. Resume when clinically indicated. amlodipine 5mg po twice daily and hydralazine 100 mg 3 times daily for hypertension TTE results reviewed, LV size normal, EF of 55%. AKILAH cleared for cardiology Resp: Acute hypoxemic and hypercarbic respiratory failure Tobacco use disorder Continue PRVC ventilation Ventilator bundle Albuterol/ipratropium aerosols every 6 hours with albuterol aerosol every 2 hours as needed dyspnea budesonide 0.5/2 1 inhalation twice daily since on budesonide/formoterol 160/ 4.5 1 puff twice daily at home along with albuterol inhaler twice daily no weaning of mechanical ventilation until mental status and ICP improves wean fio2 for goal spo2 > 90% hob elevated Tracheostomy 07/28. GI: Elevated transaminases -slowly trending down Rhabdomyolysis -improving, urine output is adequate, CPK trending down Cholelithiasis Elevated ammonia 07/21 Liver ultrasound revealed cholelithiasis Hepatitis panel-negative Tube feeding with Jevity 1.5 goal 65 cc are recommended and will resume Famotidine 20 mg twice daily for GI prophylaxis Docusate/senna 1 tablet daily for bowel regimen with polyethylene glycol 17 g daily and lactulose 30 cc twice daily Placement of gastric tube/percutaneous endoscopic by Dr. Rooney 08/04 Renal/: Acute kidney injury d/c adler 08/03 continue forced diuresis currently on furosemide 20 mg IV twice daily since . Decrease to daily today 08/05 Renal ultrasound revealed no hydronephrosis bilaterally 07/21 Urine eosinophils negative. Avoid nephrotoxic drugs Endo: Sliding scale insulin with NovoLog with Accu-Cheks every 6 hours to maintain euglycemia/low regimen Hemoglobin A1c documented at 6.1 Heme: Normocytic anemia Leukocytosis Monitor CBC daily. Follow trend hold SQH ID: Staph epi/coag negative staph bacteremia Received piperacillin/tazobactam and clindamycin ED for possible aspiration ID involved and following. Previously on ceftriaxone for staph in 2/2 bottles blood cultures. Vancomycin, cefepime current regimen Pertinent cultures 08/01 -blood cultures -coag negative staph and gram-negative edgardo 07/28 -blood cultures staph epi 07/27 -blood cultures -staph epi- Blood cultures 2, UA, sputum 07/21 all pending/no growth to date Strep pneumo, Legionella urine antigens- 08/02 - CSF cultures pending, currently NGTD. FEN: Hypernatremia Hypokalemia -acute Hypophosphatemia -resolved Electrolyte protocol Scheduled potassium chloride 20 mEq twice daily while on furosemide MSK: History of multiple lumbar/cervical spine surgeries PT evaluate and treat Access adler: will d/c 08/02. Currently with condom catheter 07/25 EVD Prophylaxis -GI -lansoprazole -DVT -SCD/ Heparin SQ held. Resume when okay with neurosurgery Overall impression: Severe neurologic deficit persists and appears to be permanent likely. Not tolerating ventilator spontaneous breathing trials and we are unable to wean from the ventilator yet. Manuel Rose MD August 06, 2017 08:47
--- NOTE | 2017-08-06 09:01 | HHI.NSPN ---
History Chief Complaint: multifocal infarct. Interval History 66-year-old obese gentleman who was admitted to [facility] intensive medical unit after presenting to the emergency room 5 days ago found unresponsive at home by . He was intubated and has been on ventilator support since his admission. Workup initially with CT and MRI scan of the brain revealed multifocal areas of infarct involving the bilateral supratentorial hemispheres as well as cerebellar hemispheres consistent with either embolic strokes or anoxia or hypoxia. His toxicology screen was positive for multiple drugs and polysubstance abuse including cocaine, cannabinoids, barbiturates, and opioids. He had a change in his neurologic status with posturing noted today and MRI scan obtained revealed progression of the bilateral cerebellar hemispheres strokes with obstruction of the fourth ventricle and associated hydrocephalus development. Neurosurgery was consulted for the hydrocephalus by the auto hauler. 07/26/17: Pt sedated on Diprivan and Fentanyl drips. Not opening eyes. Pupils 3mm bilaterally NR bilaterally. Intubated. Ventriculostomy drain in place lowered to [address] Barrow with orders to increase to 5cmH20 in one hour. 07/30/17: Patient sedated with fentanyl and Diprivan drips. Not opening eyes. Trach in place. He is on CPAP. Ventriculostomy drain in place at 5 cmH20 draining clear CSF. 07/31/17: Pt sedated with Fentanyl and Diprivan. Opening eyes left more than right. Ventriculostomy drain in place at [id number]. ICP 15 draining clear CSF. 08/01/17: Pt on sedative drips Fentanyl and Diprivan. Pupils 4mm bilaterally reactive bilaterally. Ventriculostomy drain at [id number]. ICP 8 currently. Draining clear CSF. 08/02/17: Pt on Fentanyl and Diprivan drip. He opens eyes to deep pain. Pupils 3mm bilaterally reactive bilaterally. Ventric in place at 15cm H20, draining Clear CSF. 08/03/17: Pt on very low dose Fentanyl. He opens his eyes to pain. Pupils 4mm bilaterally reactive bilaterally. Ventriculostomy in place at [id number]. ICP 5. Sticks out tongue slightly to command. Not following in extremities but edematous. 08/06/17: Pt opens eyes to painful stimuli for brief periods of time. He sticks out tongue to command. Not following consistently in extremities. Ventriculostomy drain in place at [id number] and clamped. ICP 5-7 range. System Review Comments Not able to obtain given clinical condition. Exam Results Vital Signs Date Time Temp Pulse Resp B/P (MAP) Pulse Ox O2 Delivery O2 Flow Rate FiO2 08/06/17 07:41 30 08/06/17 07:41 100 08/06/17 06:00 80 08/06/17 04:00 99.2 22 98/56 (70) Intake and Output 08/06/17 08/06/17 08/07/17 08:00 16:00 00:00 Intake Total 937 ml Output Total 800 ml Balance 137 ml Physical Examination General: Pt in bed in no acute distress with stable vital signs. Eyes: Pupils equal. Sclera anicteric. Resp: Trach in place on CPAP. CTA bilaterally. Heart: NSR no murmurs Abd: Soft positive bs Skin: No cyanosis or erythema. SCDs in place. Muscle: Not following in extremities for muscle testing. Some flexion in UEs to pain in upper chest. Neuro: Pt opens eyes to pain. Sticks out tongue to command but not following other commands in extremities. Pupils 3mm bilaterally reactive bilaterally. Ventriculostomy drain in place at [id number] clamped. ICP 5-7 range. Lab, Micro, Other Results Last Impressions Chest X-Ray 08/06/17 0600 Signed Impressions: Service Date/Time: Sunday, August 06, 2017 03:37 - CONCLUSION: 1. No confluent infiltrates or effusions are not identified. 2. The tracheostomy tube remains in place. Buck Henry MD Head CT 08/05/17 0600 Signed Impressions: Service Date/Time: Saturday, August 05, 2017 04:53 - CONCLUSION: 1. Decreasing brain edema and mass effect. Multiple evolving infarcts as above. Previous right frontal ventriculostomy tube placement and occipital craniotomy. Ananda Messina MD Lower Extremity Ultrasound 08/05/17 0000 Signed Impressions: Service Date/Time: Saturday, August 05, 2017 16:06 - CONCLUSION: 1. No sonographic evidence for lower extremity DVT. Sanchez Canada MD Abdomen X-Ray 07/27/17 0000 Signed Impressions: Service Date/Time: Thursday, July 27, 2017 20:37 - CONCLUSION: NG tube coiled in the lower thoracic esophagus. Oumar Bray Jr., MD Head/Brain Mag Res Venography 07/25/17 Signed Impressions: Service Date/Time: Tuesday, July 25, 2017 19:54 - CONCLUSION: Patent dural sinuses. Lonnie Munguia MD Brain MRI 07/25/17 Signed Impressions: Service Date/Time: Tuesday, July 25, 2017 10:37 - CONCLUSION: Worsening brain appearance with developing hydrocephalus which is presumably related to increasing edema in the posterior fossa. See above discussion. Lonnie Lock MD Neck Magnetic Resonance Angiography 07/21/17 Signed Impressions: Service Date/Time: Friday, July 21, 2017 08:40 - CONCLUSION: No acute neck arteriovascular abnormality is identified. There is no significant stenosis within either internal carotid artery. Lonnie Ross MD Head Magnetic Resonance Angiography 07/21/17 Signed Impressions: Service Date/Time: Friday, July 21, 2017 08:40 - CONCLUSION: No acute intracranial vascular abnormality is identified. Lonnie Ross MD Abdomen Ultrasound 07/21/17 Signed Impressions: Service Date/Time: Friday, July 21, 2017 15:47 - CONCLUSION: Cholelithiasis. No gallbladder wall thickening or pericholecystic fluid. Victor Manuel Barros MD Laboratory Tests Test 08/06/17 04:17 Blood Urea Nitrogen 18 MG/DL Creatinine 0.55 MG/DL Random Glucose 103 MG/DL Calcium Level 8.0 MG/DL Phosphorus Level 2.9 MG/DL Magnesium Level 2.5 MG/DL Sodium Level 147 MEQ/L Potassium Level 3.4 MEQ/L Chloride Level 113 MEQ/L Carbon Dioxide Level 26.3 MEQ/L Anion Gap 8 MEQ/L Estimat Glomerular Filtration Rate 149 ML/MIN Medical Decision Making Impression and Plan A: 66-year-old gentleman with multifocal infarcts involving both hemispheres supratentorially as well as bilateral cerebellar hemispheres with worsening edema and obstructive hydrocephalus. His neurologic examination is very poor. Discussed with over the phone and recommended an emergent ventriculostomy placement to treat the obstructive hydrocephalus. If there is noted improvement subsequently and the option of possible suboccipital craniectomy for decompression could be considered if the family chooses to continue with the aggressive management although this would be a heroic procedure. The at this point consents to ventriculostomy placement and this was witnessed by the nursing staff. Pt underwent a Bilateral suboccipital decompressive craniectomy; expensive dural bovine patch graft; left cerebellar hemisphere brain biopsy on 07/26/17. P: Continue with ventriculostomy drain clamped and monitoring ICP which currently range 5-7. Continue with critical care, weaning vent. Continue to wean sedation as tolerated. The ventriculostomy drain exit site was cleaned with Betadine. Lidocaine 1% with epi 1 cc was used for local anesthetic. The ventriculostomy drain was removed and 2 meli were placed using sterile technique. There was no CSF drainage. Shakir Carroll August 06, 2017 9:01 am
[2017-08-06] MEDS: ICU - POTASSIUM CHLORIDE/AQUEOUS SOLN 20 MEQ/100 ML IVPB IV PRN ×2 (09:18→12:01)
[2017-08-06] MEDS ORDERED: LIDOCAINE 1%/EPINEPHrine 1:100,000 SOLN 20 ML VIAL INFIL ONE (09:45)
[2017-08-06] MEDS: levETIRAcetam INJ 750 MG in SODIUM CHLORIDE 0.9% INJ 100 ML IV SCH ×2 (10:48→22:15)
--- NOTE | 2017-08-06 11:35 | HHI.PR ---
Subjective Remarks postop Objective Vital Signs Date Time Temp Pulse Resp B/P (MAP) Pulse Ox O2 Delivery O2 Flow Rate FiO2 08/06/17 11:18 100 30 08/06/17 10:00 96 08/06/17 08:00 85 08/06/17 08:00 30 08/06/17 08:00 98.7 88 29 133/64 (87) 100 08/06/17 07:41 30 08/06/17 07:41 100 30 08/06/17 06:00 80 08/06/17 04:48 98 30 08/06/17 04:00 68 08/06/17 04:00 99.2 68 22 98/56 (70) 99 08/06/17 04:00 30 08/06/17 02:00 82 08/06/17 00:54 99 30 08/06/17 00:00 98.9 84 20 126/60 (82) 99 08/06/17 00:00 84 08/06/17 00:00 30 08/05/17 22:00 88 08/05/17 20:53 98 30 08/05/17 20:00 99.3 88 24 98 08/05/17 20:00 88 08/05/17 20:00 30 08/05/17 18:00 79 08/05/17 16:00 30 08/05/17 16:00 99.1 80 27 106/55 (72) 99 08/05/17 16:00 80 08/05/17 14:00 105 08/05/17 12:00 99.0 108 23 113/59 (77) 98 08/05/17 12:00 108 08/05/17 12:00 30 I/O 08/05/17 08/05/17 08/05/17 08/06/17 08/06/17 08/06/17 07:00 15:00 23:00 07:00 15:00 23:00 Intake Total 619 ml 200 ml 730 ml 937 ml Output Total 1650 ml 1550 ml 800 ml Balance -1031 ml 200 ml -820 ml 137 ml IV Total 200 ml Tube Feeding 419 ml 530 ml 537 ml Other 200 ml 200 ml 400 ml Output Urine Total 1650 ml 1550 ml 800 ml Drainage Total 0 ml 0 ml 0 ml # Bowel Movements 1 4 3 Result Diagram: 08/05/17 0600 08/06/17 0417 Objective Remarks on vent on sedatives fentanyl small dose pupil= awakens rxt bilat threat and stuck out tong for me could not get him to move ext for me Assessment and Plan Assessment and Plan imp a lot of edema increased from 07/21 i started steroids high dose in case encephalitis echo andlabs and eeg neg csf some histiocytes ow underwhelming on acyclovir i sid id the casethought noninfectious hsv pend critically ill ct by nicole ferguson pend 07/30/17 not much new would like to get mri at some point to gauge where we are all csf neg cx neg bands neg labs neg i sid nurse and 08/01/17 no change \ mri will be helpful here to decide course 08/03/17 looks little better mri when able check abg 08/06/[address] less edema watch for ext movement Judd Castillo MD August 06, 2017 11:35
--- NOTE | 2017-08-06 12:17 | PD.CARD.PN ---
Subjective Subjective Remarks trached, on iv fentanyl, nurse notes improvements in trends in following simple commands Objective Medications Current Medications Medications (Trade) Dose Ordered Sig/Claudia Route Start Time Stop Time Status Last Admin (NS Flush) 2 ml UNSCH PRN IV FLUSH 07/21/17 00:00 (NS Flush) 2 ml BID IV FLUSH 07/21/17 09:00 08/06/17 08:20 (Tears Naturale Opth Soln) 1 drop TID EACH EYE 07/21/17 09:00 08/06/17 08:20 (Albuterol Neb) 2.5 mg Q2HR NEB PRN INH 07/21/17 00:00 08/03/17 08:20 [place] [place] 1 Q361D XX 07/21/17 00:00 07/21/17 00:00 (Chlorhexidine 2% Cloth) Taper DAILY@04 TOP 07/21/17 04:00 07/17/18 03:59 08/06/17 03:21 (Chlorhexidine 2% Cloth) 3 pack UNSCH PRN TOP 07/21/17 00:00 (Milk Of Magnesia Liq) 30 ml Q12H PRN PO 07/21/17 00:00 (Senokot) 17.2 mg Q12H PRN PO 07/21/17 00:00 (Dulcolax Supp) 10 mg DAILY PRN RECTAL 07/21/17 00:00 (Lactulose Liq) 30 ml DAILY PRN PO 07/21/17 00:00 (Peridex 0.12% Liq) 15 ml BID@08,20 MT 07/21/17 08:00 08/06/17 08:14 (D50w (Vial) Inj) 50 ml UNSCH PRN IV PUSH 07/21/17 00:00 (Glucagon Inj) 1 mg UNSCH PRN OTHER 07/21/17 00:00 (NovoLOG SUPPLEMENTAL SCALE) 1 Q6HR SQ 07/21/17 00:00 07/30/17 17:49 (Pulmicort Respule Neb) 0.5 mg Q12HR NEB NEB 07/21/17 08:00 08/06/17 07:49 (Brethine Inj) 1 mg UNSCH PRN SQ 07/21/17 00:30 (Apresoline Inj) 10 mg Q1H PRN IV PUSH 07/22/17 09:45 5/8/18 19:51 (Nitroglycerin 2% Oint) 2 inch Q6H PRN TOPICAL 07/22/17 09:45 Levetriacetam 750 mg/Sodium Chloride 107.5 ml @ 420 mls/hr Q12H IV 07/25/17 10:00 08/06/17 10:48 (Brethine Inj) 1 mg UNSCH PRN SQ 07/26/17 09:45 Propofol 100 ml @ 3.102 mls/ hr TITRATE PRN IV 07/26/17 11:00 08/02/17 06:43 Fentanyl Citrate 250 ml @ 5 mls/hr TITRATE PRN IV 07/26/17 11:00 08/04/17 21:26 (Lactinex) 1 tab TID PO 07/28/17 18:00 08/06/17 08:21 (Norvasc) 5 mg BID PO 07/29/17 09:00 08/06/17 08:22 (Prinivil) 10 mg DAILY PO 07/29/17 09:00 08/06/17 08:18 (Apresoline) 50 mg Q8H PRN PO 07/30/17 09:15 Pharmacy Profile Note 0 ml @ 0 mls/hr UNSCH OTHER 07/30/17 13:00 (Apresoline) 100 mg Q8H PO 07/30/17 18:00 08/06/17 10:48 [place] [place]/C [place] ELECTROLYTE ORDERS... UNSCH PRN .XX 08/01/17 08:30 [place] [place] [facility] [place] ICU - CALL ORDERING PHYSIC... UNSCH PRN .XX 08/01/17 08:30 Potassium Chloride 100 ml @ 25 mls/hr UNSCH PRN IV 08/01/17 08:30 (K-Lyte Cl Eff) 50 meq UNSCH PRN PO 08/01/17 08:30 Potassium Chloride 100 ml @ 50 mls/hr UNSCH PRN IV 08/01/17 08:30 08/06/17 09:18 Magnesium Sulfate 4 gm/Sodium Chloride 108 ml @ 54 mls/hr UNSCH PRN IV 08/01/17 08:30 Magnesium Sulfate 2 gm/Sodium Chloride 104 ml @ 52 mls/hr UNSCH PRN IV 08/01/17 08:30 (Mag-Ox) 800 mg UNSCH PRN PO 08/01/17 08:30 Sodium Phosphate 30 mmol/Sodium Chloride 260 ml @ 43.333 mls/ hr UNSCH PRN IV 08/01/17 08:30 (K-Phos) 2,000 mg UNSCH PRN PO 08/01/17 08:30 Potassium Phosphate 30 mmol/ Sodium Chloride 260 ml @ 43.333 mls/ hr UNSCH PRN IV 08/01/17 08:30 Vancomycin HCl 1500 mg/Sodium Chloride 515 ml @ 250 mls/hr Q12H IV 08/03/17 17:00 08/06/17 05:23 (Mycostatin Liq) 5 ml QID SWISH-SWAL 08/03/17 18:00 08/06/17 08:18 (KCl Powder) 20 meq Q12HR NG 08/04/17 21:00 08/06/17 08:21 (Duoneb Neb) 1 ampule Q6HR NEB NEB 08/04/17 16:00 08/06/17 07:48 [place] [place] [facility] [place] Info) SPECIFIC LAB TO BE DRAWN:VANCO TROUGH DATE TO BE DRGustavo.. ONCE ONCE .XX 08/06/17 16:45 08/06/17 16:46 (Lasix Inj) 20 mg DAILY IV PUSH 08/06/17 09:00 08/06/17 08:20 (Prevacid Odt) 30 mg DAILY NG 08/06/17 09:00 08/06/17 08:18 (Dilia-Colace) 1 tab DAILY PO 08/06/17 09:00 (Lactulose Liq) 30 ml BID PO 08/05/17 21:00 08/05/17 20:51 (Miralax) 17 gm DAILY PO 08/06/17 09:00 Piperacillin Sod/ Tazobactam Sod 50 ml @ 100 mls/hr Q6H IV 08/05/17 20:00 08/06/17 08:14 (Zofran Odt) 4 mg Q6H PRN .XX 08/05/17 23:15 Vital Signs / I&O Vital Signs Date Time Temp Pulse Resp B/P (MAP) Pulse Ox O2 Delivery O2 Flow Rate FiO2 08/06/17 11:18 100 30 08/06/17 10:00 96 08/06/17 08:00 85 08/06/17 08:00 30 08/06/17 08:00 98.7 88 29 133/64 (87) 100 08/06/17 07:41 30 08/06/17 07:41 100 30 08/06/17 06:00 80 08/06/17 04:48 98 30 08/06/17 04:00 68 08/06/17 04:00 99.2 68 22 98/56 (70) 99 08/06/17 04:00 30 08/06/17 02:00 82 08/06/17 00:54 99 30 08/06/17 00:00 98.9 84 20 126/60 (82) 99 08/06/17 00:00 84 08/06/17 00:00 30 08/05/17 22:00 88 08/05/17 20:53 98 30 08/05/17 20:00 99.3 88 24 98 08/05/17 20:00 88 08/05/17 20:00 30 08/05/17 18:00 79 08/05/17 16:00 30 08/05/17 16:00 99.1 80 27 106/55 (72) 99 08/05/17 16:00 80 08/05/17 14:00 105 I/O 08/05/17 08/05/17 08/05/17 08/06/17 08/06/17 08/06/17 07:00 15:00 23:00 07:00 15:00 23:00 Intake Total 619 ml 200 ml 730 ml 937 ml Output Total 1650 ml 1550 ml 800 ml Balance -1031 ml 200 ml -820 ml 137 ml IV Total 200 ml Tube Feeding 419 ml 530 ml 537 ml Other 200 ml 200 ml 400 ml Output Urine Total 1650 ml 1550 ml 800 ml Drainage Total 0 ml 0 ml 0 ml # Bowel Movements 1 4 3 Physical Exam GENERAL: SKIN: Warm and dry. HEAD: Normocephalic. EYES: No scleral icterus. No injection or drainage. NECK: Supple, trachea midline. No JVD or lymphadenopathy. CARDIOVASCULAR: Regular rate and rhythm without murmurs, gallops, or rubs. RESPIRATORY: Breath sounds equal bilaterally. No accessory muscle use. GASTROINTESTINAL: Abdomen soft, non-tender, nondistended. MUSCULOSKELETAL: No cyanosis, or edema. BACK: Nontender without obvious deformity. No CVA tenderness. Laboratory Laboratory Tests Test 08/06/17 04:17 Blood Urea Nitrogen 18 MG/DL Creatinine 0.55 MG/DL Random Glucose 103 MG/DL Calcium Level 8.0 MG/DL Phosphorus Level 2.9 MG/DL Magnesium Level 2.5 MG/DL Sodium Level 147 MEQ/L Potassium Level 3.4 MEQ/L Chloride Level 113 MEQ/L Carbon Dioxide Level 26.3 MEQ/L Anion Gap 8 MEQ/L Estimat Glomerular Filtration Rate 149 ML/MIN Imaging Last 24 hours Impressions Chest X-Ray 08/06/17 0600 Signed Impressions: Service Date/Time: Sunday, August 06, 2017 03:37 - CONCLUSION: 1. No confluent infiltrates or effusions are not identified. 2. The tracheostomy tube remains in place. Buck Henry MD Assessment and Plan Problem List: (1) Toxic metabolic encephalopathy ICD Codes: G92 - Toxic encephalopathy (2) Tetrahydrocannabinol (THC) use disorder, mild, abuse ICD Codes: F12.10 - Cannabis abuse, uncomplicated (3) Encephalopathy ICD Codes: G93.40 - Encephalopathy, unspecified (4) Stroke ICD Codes: I63.9 - Cerebral infarction, unspecified (5) Chronic, continuous use of opioids ICD Codes: F11.90 - Opioid use, unspecified, uncomplicated (6) Cocaine use ICD Codes: F14.90 - Cocaine use, unspecified, uncomplicated Assessment and Plan 1.) Cleared by neurosurgery for SWAPNIL, not sure if findings will traveler changer as neurologic prognosis appears poor, d/w ID 08/04/17; SWAPNIL not currently indicated, d/w nurse at bedside 08/06/17; consider swapnil if still indicated from ID standpoint and patient has meaningful neurologic recovery Navid Corrales MD August 06, 2017 12:17
--- NOTE | 2017-08-06 15:07 | HHI.HCPN ---
Follow-up palliative care visit for ongoing communication and support. Upon arrival to unit [facility] was meeting with Per from [facility]. [facility] currently following Mr. Castillo to determine if he will be candidate pending clinical condition and drain removal. continues to be inquisitive regarding patient's medical condition and options. Appears to have an understanding at this time and coping well. Inquires about resources for herself to assist in coping with prolonged hospitalization, ongoing uncertainty of prognosis, and overall wellbeing. Receptive to continued palliative care follow-up. Goals remain aggressive. Follow-up phone call to sonBlake. Unable to reach. Left message with update and palliative care contact information. 345pm-- received call back from son Blake. Inquires about medical update. Answered questions and concerns to the best of my ability and to his satisfaction. Requests follow-up medical update tomorrow, Monday 08/07. Palliative care will continue to follow throughout hospitalization. Roxy Bray, [employer] August 06, 2017 15:07
[2017-08-06] MEDS ORDERED: PHARMACY ORDERED LAB ONE (16:45)
--- NOTE | 2017-08-06 19:30 | HHI.PR ---
Addendum to Inpatient Note Additional Information pt was seen earlier today full note to follow Reva Corrales MD August 06, 2017 19:30
--- NOTE | 2017-08-06 19:38 | HHI.IDPN ---
Subjective Subjective Remarks neurologically with some improvement, opens eyes more to voice remains on vent intermittent low grade fever up to 100.0 GNB in 1 blood clx - annaertob also new + blood clx for coag neg stapn PSAE in sputum diarrhea + Antibiotics zosyn vancomycin Lines Line sites with no e.o infection Past Medical History reviewed Allergies: Coded Allergies: No Known Allergies (Verified Allergy, Unknown, 07/20/17) Objective . Vital Signs Date Time Temp Pulse Resp B/P (MAP) Pulse Ox O2 Delivery O2 Flow Rate FiO2 08/06/17 18:00 81 08/06/17 16:00 98.8 89 27 100/52 (68) 100 08/06/17 16:00 30 08/06/17 16:00 85 08/06/17 15:25 100 30 08/06/17 14:00 85 08/06/17 12:00 92 08/06/17 12:00 30 08/06/17 12:00 98.8 93 25 104/64 (77) 100 08/06/17 11:18 100 30 08/06/17 10:00 96 08/06/17 08:00 85 08/06/17 08:00 30 08/06/17 08:00 98.7 88 29 133/64 (87) 100 08/06/17 07:41 30 08/06/17 07:41 100 30 08/06/17 06:00 80 08/06/17 04:48 98 30 08/06/17 04:00 68 08/06/17 04:00 99.2 68 22 98/56 (70) 99 08/06/17 04:00 30 08/06/17 02:00 82 08/06/17 00:54 99 30 08/06/17 00:00 98.9 84 20 126/60 (82) 99 08/06/17 00:00 84 08/06/17 00:00 30 08/05/17 22:00 88 08/05/17 20:53 98 30 08/05/17 20:00 99.3 88 24 98 08/05/17 20:00 88 08/05/17 20:00 30 08/06/17 08/06/17 08/07/17 15:00 23:00 07:00 Intake Total 672 ml Output Total 1900 ml Balance -1228 ml Tube Feeding 622 ml Tube Irrigant 50 ml Output Urine Total 1800 ml Stool Total 100 ml . Laboratory Tests Test 08/05/17 06:00 White Blood Count 13.2 TH/MM3 Red Blood Count 3.07 MIL/MM3 Hemoglobin 9.8 GM/DL Hematocrit 29.2 % Mean Corpuscular Volume 95.0 FL Mean Corpuscular Hemoglobin 31.9 PG Mean Corpuscular Hemoglobin Concent 33.5 % Red Cell Distribution Width 13.7 % Platelet Count 351 TH/MM3 Mean Platelet Volume 8.1 FL Laboratory Tests Test 08/05/17 06:00 08/06/17 04:17 08/06/17 17:40 Blood Urea Nitrogen 21 MG/DL 18 MG/DL Creatinine 0.60 MG/DL 0.55 MG/DL Random Glucose 117 MG/DL 103 MG/DL Total Protein 5.8 GM/DL Albumin 2.2 GM/DL Calcium Level 8.0 MG/DL 8.0 MG/DL Phosphorus Level 2.8 MG/DL 2.9 MG/DL Magnesium Level 2.2 MG/DL 2.5 MG/DL Alkaline Phosphatase 65 U/L Aspartate Amino Transf (AST/SGOT) 28 U/L Alanine Aminotransferase (ALT/SGPT) 68 U/L Total Bilirubin 0.3 MG/DL Direct Bilirubin 0.1 MG/DL Sodium Level 147 MEQ/L 147 MEQ/L Potassium Level 3.3 MEQ/L 3.4 MEQ/L 3.6 MEQ/L Chloride Level 112 MEQ/L 113 MEQ/L Carbon Dioxide Level 26.6 MEQ/L 26.3 MEQ/L Anion Gap 8 MEQ/L 8 MEQ/L Estimat Glomerular Filtration Rate 135 ML/MIN 149 ML/MIN Indirect Bilirubin 0.2 MG/DL Ammonia 50 MCMOL/L Total Creatine Kinase 145 U/L Amylase Level 100 U/L Microbiology Date/Time Source Procedure Growth Status 08/05/17 15:53 Sputum Endotracheal Gram Stain - Final Resulted 08/05/17 15:53 Sputum Culture - Preliminary Pseudomonas Aeruginosa Resulted Imaging Last Impressions Chest X-Ray 08/06/17599 Signed Impressions: Service Date/Time: Sunday, August 06, 2017 03:37 - CONCLUSION: 1. No confluent infiltrates or effusions are not identified. 2. The tracheostomy tube remains in place. Buck Henry MD Head CT 5/20/18 0600 Signed Impressions: Service Date/Time: Saturday, August 05, 2017 04:53 - CONCLUSION: 1. Decreasing brain edema and mass effect. Multiple evolving infarcts as above. Previous right frontal ventriculostomy tube placement and occipital craniotomy. Ananda Messina MD Lower Extremity Ultrasound 08/05/17 Signed Impressions: Service Date/Time: Saturday, August 05, 2017 16:06 - CONCLUSION: 1. No sonographic evidence for lower extremity DVT. Sanchez Canada MD Abdomen X-Ray 07/27/17 Signed Impressions: Service Date/Time: Thursday, July 27, 2017 20:37 - CONCLUSION: NG tube coiled in the lower thoracic esophagus. Oumar Bray Jr., MD Head/Brain Mag Res Venography 07/25/17 Signed Impressions: Service Date/Time: Tuesday, July 25, 2017 19:54 - CONCLUSION: Patent dural sinuses. Lonnie Munguia MD Brain MRI 07/25/17 Signed Impressions: Service Date/Time: Tuesday, July 25, 2017 10:37 - CONCLUSION: Worsening brain appearance with developing hydrocephalus which is presumably related to increasing edema in the posterior fossa. See above discussion. Lonnie Lock MD Neck Magnetic Resonance Angiography 07/21/17 Signed Impressions: Service Date/Time: Friday, July 21, 2017 08:40 - CONCLUSION: No acute neck arteriovascular abnormality is identified. There is no significant stenosis within either internal carotid artery. Lonnie Ross MD Head Magnetic Resonance Angiography 07/21/17 Signed Impressions: Service Date/Time: Friday, July 21, 2017 08:40 - CONCLUSION: No acute intracranial vascular abnormality is identified. Lonnie Ross MD Abdomen Ultrasound 07/21/17 Signed Impressions: Service Date/Time: Friday, July 21, 2017 15:47 - CONCLUSION: Cholelithiasis. No gallbladder wall thickening or pericholecystic fluid. Victor Manuel Barros MD Physical Exam CONSTITUTIONAL/GENERAL: This is an obese elderly patient, in no apparent distress. On vent TUBES/LINES/DRAINS: SKIN: No jaundice, rashes, or lesions. Skin temperature appropriate. Not diaphoretic. HEAD: Ventric in place R parietal area with clear CSF EYES: Pupils equal and round and reactive. Extraocular motions intact. No scleral icterus. No injection or drainage. Fundi not examined. ENT: Hearing not tested Nose without bleeding or purulent drainage. Throat without visible erythema, exudates, masses, or lesions. Orally intubated CARDIOVASCULAR: Regular rate and rhythm without murmurs, gallops, or rubs. No JVD. Peripheral pulses symmetric. RESPIRATORY/CHEST: Symmetric, unlabored respirations. Clear to auscultation. Breath sounds equal bilaterally. No wheezes, rales, or rhonchi. GASTROINTESTINAL: Abdomen soft, non-tender, nondistended. GENITOURINARY: Without palpable bladder distension. Garner catheter in place with clear yellow urine. + scrotum edema MUSCULOSKELETAL: Extremities without clubbing, cyanosis, remains quite edematous. No joint tenderness or effusion noted. No calf tenderness. No mottling or clubbing. NEUROLOGICAL: pt opened eyes to voice; did not follow commands briefly tried eyes contact PSYCHIATRIC: Unable to assess Assessment & Plan Remarks Abnormal CSF - no r/o meningoencephalitis - probably combination of embolic strokes and anoxia t - Acute VDRF ARF 2/2 rhabdo: resolved New fever - resolved Likely PNA: sputum purulent - clx with nl resp olga lidia High grade Staph epi bacteremia Leukocytosis - can be from steroids worse low grade fever anaerobic GNB bacteremia -? GI source ? anaerobe New coag nex staph bacteremia x 2 morphologies: cw contaminant Recs: cont zosyn 4.5 gm dose Continue Vanco IV (target 15-20) x 10 days total fu P clx fu WBC dw RN dw at b/s in details, questions unswered to full extent Reva Corrales MD August 06, 2017 19:38
[2017-08-06] MEDS ORDERED: DIATRIZOATE MEGLUM/DIATRIZOATE SOD 9 ML CUP PO ONE (20:00)
[2017-08-06] MEDS: PIPERACIL-TAZO 4.5 GM PREMIX 100 ML IV SCH (20:24)
[2017-08-07] VITALS (19 sets, daily range): BP systolic 109–156; BP diastolic 61–73; PULSE 68–87; RESP 20–21; TEMP 98.7–99.3; O2SAT 97–100
[2017-08-07] MEDS: hydrALAZINE HCL 50 MG TAB PO SCH ×3 (01:28→17:14)
[2017-08-07] MEDS: PIPERACIL-TAZO 4.5 GM PREMIX 100 ML IV SCH ×4 (01:28→20:54)
[2017-08-07] MEDS: RESP: ALBUTEROL 2.5 MG/IPRATROPIUM 0.5 MG NEB (SCH) NEB ×4 (03:19→19:39)
[2017-08-07] MEDS: CHLORHEXIDINE GLUCONATE 2 % 1 PACK (2 CLOTHS) TOP SCH (03:45)
[2017-08-07 04:54] LABS: AUTOMATED NEUTROPHIL # 8.8 TH/MM3 (1.8-7.7); BASOPHIL # 0.1 TH/MM3 (0-0.2); EOSINOPHIL # 0.5 TH/MM3 (0-0.4); EOSINOPHIL % 4.2 % (0.0-4.0); HEMATOCRIT 29.2 % (39.0-51.0); HEMOGLOBIN 9.6 GM/DL (13.0-17.0); LYMPH % 14.8 % (9.0-44.0); LYMPHOCYTE # 1.8 TH/MM3 (1.0-4.8); MEAN CELL VOLUME 93.8 FL (80.0-100.0); MEAN CORPUSCULAR HEMOGLOBIN 30.9 PG (27.0-34.0); MEAN PLATELET VOLUME 7.8 FL (7.0-11.0); MONO % 7.5 % (0.0-8.0); MONOCYTE # 0.9 TH/MM3 (0-0.9); NEUT % 72.5 % (16.0-70.0); PLATELET COUNT 358 TH/MM3 (150-450); RED BLOOD COUNT 3.11 MIL/MM3 (4.50-5.90); RED CELL DISTRIBUTION WIDTH 14.2 % (11.6-17.2); WHITE BLOOD COUNT 12.1 TH/MM3 (4.0-11.0)
[2017-08-07] MEDS: VANCOMYCIN INJ 1,500 MG in SODIUM CHLORID 0.9% 500 ML INJ 500 ML IV SCH ×2 (05:17→17:13)
[2017-08-07] MEDS: INSULIN ASPART SUPPLEMENTAL SCALE SQ SCH ×5 (06:00→23:58)
[2017-08-07] MEDS: RESP: BUDESONIDE 0.5 MG/2 ML NEB NEB SCH ×2 (07:58→19:39)
[2017-08-07] MEDS: CHLORHEXIDINE 0.12% (ORAL KIT) 15 ML CUP MT SCH ×2 (08:01→20:00)
--- NOTE | 2017-08-07 08:45 | HHI.CCPN ---
Subjective Remarks/Hospital Course This is a 66-year-old male. Date of admission 07/20/2017. Past medical history includes hypertension, hyperlipidemia, COPD with ongoing tobacco abuse, peptic ulcer disease and anxiety. He also has history of lumbar stenosis, degenerative joint disease of the back and cervical spine. He presents to [facility] with the following history. 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 According to his at bedside, patient is drug tested. Patient returned home from work on Sunday after his 30 day work schedule. Patient was changing the tire of a bike friend yesterday. Patient returned home in no acute distress. Today, patient was tired and was sleeping all day. Initially patient had similar symptoms at lunch. When the attempted to wake him up later this evening patient be was nonresponsive with a weak pulse. She attempted to use ammonia without response. At that time EMS was called and patient was transferred to [facility]. Patient was noted to be an acute change with a creatinine of 3.8. Baseline is normal. Potassium is 7.4 without EKG changes. Patient received bicarbonate, insulin/D50, calcium and Kayexalate in the ED. Repeat potassium 3 hours. Patient is making urine and appears concentrated. UA is pending. Patient leukocytosis 13,000. CPK was 5000. Lactic acid was 2.6. Urine drug screen revealed positive for opiates, amphetamines, benzodiazepines, THC and cocaine. Head CT is currently pending. Due to altered mental status patient was admitted after receiving 20 mg etomidate and 100 mg succinylcholine by ED physician. Patient also received 4 mg of midazolam and after which patient became hypotensive is currently receiving 3 L normal saline wide open. Head CT is currently pending. Patient received clindamycin along with piperacillin/ tazobactam in the ED. 07/21: Overnight the patient required to protamine infusion low-dose currently being weaned off. The patient continues on fentanyl and propofol infusion for ventilator synchrony. Patient's undergoing MRI evaluation results pending. The patient was noted to have significant elevation in creatinine kinase the patient is bolused 1 L IV fluids increase in normal saline 200 cc/hr. Lactic acid downtrending will continue to trend creatinine noted to be decreasing. 07/22: Currently afebrile. Off all vasopressors. We will switch to LR at 200 cc an hour. Recheck BMP this afternoon. Moving all 4 x-rays spontaneously right upper extremity less. Opens eyes but not following commands. Positive gag and corneal reflex. 07/23: Currently on dexmedetomidine drip at 0.7 mg/kg/h. Minimal response to distinguish. Will hold at the present time and reassess neurological condition. EEG showed no epileptiform activity. Tolerating tube feeding. No bowel movement since admission. Currently afebrile. 07/24: Per nursing staff patient was off sedation over the night and he woke up and followed some simple commands, but due to agitation, hypertension and tachycardia patient was restarted on sedation. He is currently on Precedex at 1 , tolerating CPAP, sedated. T-max of 99. I/O 3029/1451. 07/25: No events over the night. This morning while attempting CPAP trial patient became rigid, unresponsive, with gaze deviation, tachypneic tachycardic and hypertensive, suggesting seizure activity. Patient was immediately given Ativan 2 mg 1 with resolution of episode. Neurology was contacted and plan for EEG and CT head as well as propofol infusion. No family present at bedside. T-max of 100.7 over the night. Urine output 2300 mL's over the last 24 hours. 07/26: EVD placed yesterday for declining mental status with hydrocephalus and severe cerebellar edema. this AM, extensor posturing. supratentorial ICPs controlled, but cerebellar edema persists. discussed with Dr. Castillo: csf could be consistent with encephalitis. d/w Dr. Barrow: will need posterior fossa decompression. 07/27: no improvements in mental status. s/p suboccipital crani yesterday. remains intermittently on cardene and levophed to maintain cpp. ICP controlled. brain biopsies pending. 07/28: Osmolality suitably concentrated. ICP well controlled. Maintaining head up position. On attempted CPAP trial patient has 25 second periods of apnea. Unstable neurological status we will not stress him with extended spontaneous breathing trials. 07/29: Requiring Cardene still to maintain systolic blood pressure less than 160. Markedly edematous and will need to start active diuresis. No change in neurologic function. Apnea episodes persist. 07/30: off cardene. still grossly volume overloaded. neuro exam remains poor. 07/31: no improvement in mental status. wbc slight uptrend. afebrile. awaiting MRI for prognostication and to re-evaluate edema. adequate diuresis yesterday. 08/01: encephalopathy persists. wbc uptrending but afebrile. unable to obtain MRI due to elevated ICP, cannot tolerate lying flat. would benefit from MRI when able. diuresing well. 08/02: low grade fevers persist. wbc still high. on empiric abx. ventric has been in x 7 days: with fever and poor neurologic exam, will send CSF for cell count and culture. no change in mental status. 08/03: CSF cultures pending. no change in neuro exam. wbc still high and uptrending. challenging drain, currently at [id number] 08/04: Afebrile. Positive gag and cough. Ventricular drain currently at 20 cm H2O. Afebrile. PEG tube placed today. Subjective: 08/05: Afebrile. CT brain today revealed decreased brain edema. Multiple infarcts including posterior fossa, basal ganglia, left occipital and temporal regions. T-max 100.1. WBCs continue to be elevated.. Blood cultures growing gram-negative rods currently. 08/06: Tolerating CPAP spontaneous breathing trials but requires elevated pressure support in the range of 15-18. Excessive oral secretions will start Levsin. Moves feet spontaneously. 08/07: Moves feet spontaneously. Fails SBTs. For MRI today for re-evaluation. Objective Vital Signs Date Time Temp Pulse Resp B/P (MAP) Pulse Ox O2 Delivery O2 Flow Rate FiO2 08/07/17 07:59 100 30 08/07/17 06:00 76 08/07/17 04:00 98.9 20 129/63 (85) Intake and Output 08/07/17 08/07/17 08/08/17 08:00 16:00 00:00 Intake Total 752 ml Output Total 1525 ml Balance -773 ml Result Diagram: 08/07/17 0435 08/06/17 1740 Imaging Last Impressions Head CT 08/05/17599 Signed Impressions: Service Date/Time: Saturday, August 05, 2017 04:53 - CONCLUSION: 1. Decreasing brain edema and mass effect. Multiple evolving infarcts as above. Previous right frontal ventriculostomy tube placement and occipital craniotomy. Ananda Messina MD Chest X-Ray 08/05/17599 Signed Impressions: Service Date/Time: Saturday, August 05, 2017 03:25 - CONCLUSION: 1. Improved basilar airspace disease since August 02. Ananda Messina MD Abdomen X-Ray 07/27/17 Signed Impressions: Service Date/Time: Thursday, July 27, 2017 20:37 - CONCLUSION: NG tube coiled in the lower thoracic esophagus. Oumar Bray Jr., MD Head/Brain Mag Res Venography 07/25/17 Signed Impressions: Service Date/Time: Tuesday, July 25, 2017 19:54 - CONCLUSION: Patent dural sinuses. Lonnie Munguia MD Brain MRI 07/25/17 Signed Impressions: Service Date/Time: Tuesday, July 25, 2017 10:37 - CONCLUSION: Worsening brain appearance with developing hydrocephalus which is presumably related to increasing edema in the posterior fossa. See above discussion. Lonnie Lock MD Neck Magnetic Resonance Angiography 07/21/17 Signed Impressions: Service Date/Time: Friday, July 21, 2017 08:40 - CONCLUSION: No acute neck arteriovascular abnormality is identified. There is no significant stenosis within either internal carotid artery. Lonnie Ross MD Head Magnetic Resonance Angiography 07/21/17 Signed Impressions: Service Date/Time: Friday, July 21, 2017 08:40 - CONCLUSION: No acute intracranial vascular abnormality is identified. Lonnie Ross MD Abdomen Ultrasound 07/21/17 Signed Impressions: Service Date/Time: Friday, July 21, 2017 15:47 - CONCLUSION: Cholelithiasis. No gallbladder wall thickening or pericholecystic fluid. Victor Manuel Barros MD Procedures Right hole ventriculostomy Objective Remarks General -66-year-old male currently resting in bed HEENT -ventricular size/right frontal clean dry and intact without signs of infection. Pupils equal, dilated about 8 mm bilaterally, reactive, sclerae anicteric, neck supple, no nuchal rigidity. Tracheostomy site is clean dry and intact CV - normal rate, regular rhythm. sinus. no JVD Chest - equal chest rise. Few scattered rhonchi. Abdomen - soft, non-tender, non-distended, no guarding. PEG tube in left side is clean dry and intact Skin - no rashes, no cyanosis, multiple tattoos bilateral upper extremities and thorax Extremities - warm and well perfused, no edema, + peripheral PT pulses, no clubbing Neuro - off sedation, unresponsive, pupils equal and reactive, moves one arm only. Moves lower extremities spontaneously. 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 Castillo following neurosurgery: Dr. Barrow following. Currently levetiracetam 750 mg IV every [address] brain decrease brain edema. Right ventriculostomy. Evolving infarcts the posterior fossa, base again, temporal and left occipital region. Decreased mass-effect on posterior fossa/fourth and lateral ventricle CT brain 07/27 - Decrease in ventricular size since July 25. Extensive low attenuation and swelling in both occipital lobes and also in the periventricular region, basal ganglia and focally in the right occipital lobe. Differential diagnosis includes edema or evolving infarcts. There is mass effect on the brainstem and posterior fossa with effacement of the fourth ventricle. CT brain 07/21 There is patchy mild diminished attenuation in centrum semi-ovale bilaterally. There is mild heterogeneous diminished density in the genu region of internal capsules and globus pallidus bilaterally. There is vague diminished density in the cerebellar hemispheres bilaterally. There is no evidence of intracranial mass or hemorrhage. There is no abnormal extra-axial fluid accumulation or shift present. 07/21 MRI brain-Multifocal areas of restricted diffusion/recent ischemia within the centrum semiovale bilaterally, bilateral occipital lobes, bilateral basal ganglia, bilateral temporal lobes, and bilateral cerebellar hemispheres. Findings could be related to global anoxic event or less likely embolic phenomenon. 07/21 EEG revealed no epileptic activity 07/21-MRA brain/neck -no acute findings UDS + opiates, amphetamines, benzodiazepines, THC and cocaine CSF studies all negative cytology and bacterial infection brain biopsies of the cerebellum revealed there is necrosis and loss of neurons of the Purkinje cell layer EVD placed 07/25 by Pushpa. Currently -20 cm H2O. 0 cc past 24 hours documented. 11 cc prior CV: History of essential hypertension Hyperlipidemia Lactic acidosis -resolved Sinus bradycardia- secondary to elevated ICP- resolved Holding valsartan 320 mg p.o. daily due to hypotension/acute kidney injury Holding rosuvastatin 10 mg p.o. q. Sunday/Sunday/Sunday due to elevated LFTs. Resume when clinically indicated. amlodipine 5mg po twice daily and hydralazine 100 mg 3 times daily for hypertension TTE results reviewed, LV size normal, EF of 55%. AKILAH cleared for cardiology Resp: Acute hypoxemic and hypercarbic respiratory failure Tobacco use disorder Continue PRVC ventilation Ventilator bundle Albuterol/ipratropium aerosols every 6 hours with albuterol aerosol every 2 hours as needed dyspnea budesonide 0.5/2 1 inhalation twice daily since on budesonide/formoterol 160/ 4.5 1 puff twice daily at home along with albuterol inhaler twice daily no weaning of mechanical ventilation until mental status and ICP improves wean fio2 for goal spo2 > 90% hob elevated Tracheostomy 07/28. GI: Elevated transaminases -slowly trending down Rhabdomyolysis -improving, urine output is adequate, CPK trending down Cholelithiasis Elevated ammonia 07/21 Liver ultrasound revealed cholelithiasis Hepatitis panel-negative Tube feeding with Jevity 1.5 goal 65 cc are recommended and will resume Famotidine 20 mg twice daily for GI prophylaxis Docusate/senna 1 tablet daily for bowel regimen with polyethylene glycol 17 g daily and lactulose 30 cc twice daily Placement of gastric tube/percutaneous endoscopic by Dr. Rooney 08/04 Renal/: Acute kidney injury d/c adler 08/03 continue forced diuresis currently on furosemide 20 mg IV twice daily since . Decrease to daily today 08/05 Renal ultrasound revealed no hydronephrosis bilaterally 07/21 Urine eosinophils negative. Avoid nephrotoxic drugs Endo: Sliding scale insulin with NovoLog with Accu-Cheks every 6 hours to maintain euglycemia/low regimen Hemoglobin A1c documented at 6.1 Heme: Normocytic anemia Leukocytosis Monitor CBC daily. Follow trend hold SQH ID: Staph epi/coag negative staph bacteremia Received piperacillin/tazobactam and clindamycin ED for possible aspiration ID involved and following. Previously on ceftriaxone for staph in 2/2 bottles blood cultures. Vancomycin, cefepime current regimen Pertinent cultures 08/01 -blood cultures -coag negative staph and gram-negative edgardo 07/28 -blood cultures staph epi 07/27 -blood cultures -staph epi- Blood cultures 2, UA, sputum 07/21 all pending/no growth to date Strep pneumo, Legionella urine antigens- 08/02 - CSF cultures pending, currently NGTD. 08/05 - pansensitive Pseudomonas sputum FEN: Hypernatremia Hypokalemia -acute Hypophosphatemia -resolved Electrolyte protocol Scheduled potassium chloride 20 mEq twice daily while on furosemide MSK: History of multiple lumbar/cervical spine surgeries PT evaluate and treat Access adler: will d/c 08/02. Currently with condom catheter 07/25 EVD Prophylaxis -GI -lansoprazole -DVT -SCD/ Heparin SQ held. Resume when okay with neurosurgery Overall impression: Severe neurologic deficit persists and appears to be permanent likely. Not tolerating ventilator spontaneous breathing trials and we are unable to wean from the ventilator yet. MRI today. Manuel Rose MD August 07, 2017 08:45
--- NOTE | 2017-08-07 08:55 | HHI.NSPN ---
History Chief Complaint: multifocal infarct. Interval History 66-year-old obese gentleman who was admitted to [facility] intensive medical unit after presenting to the emergency room 5 days ago found unresponsive at home by . He was intubated and has been on ventilator support since his admission. Workup initially with CT and MRI scan of the brain revealed multifocal areas of infarct involving the bilateral supratentorial hemispheres as well as cerebellar hemispheres consistent with either embolic strokes or anoxia or hypoxia. His toxicology screen was positive for multiple drugs and polysubstance abuse including cocaine, cannabinoids, barbiturates, and opioids. He had a change in his neurologic status with posturing noted today and MRI scan obtained revealed progression of the bilateral cerebellar hemispheres strokes with obstruction of the fourth ventricle and associated hydrocephalus development. Neurosurgery was consulted for the hydrocephalus by the packing machine tender. 07/26/17: Pt sedated on Diprivan and Fentanyl drips. Not opening eyes. Pupils 3mm bilaterally NR bilaterally. Intubated. Ventriculostomy drain in place lowered to [address] Barrow with orders to increase to 5cmH20 in one hour. 07/30/17: Patient sedated with fentanyl and Diprivan drips. Not opening eyes. Trach in place. He is on CPAP. Ventriculostomy drain in place at 5 cmH20 draining clear CSF. 07/31/17: Pt sedated with Fentanyl and Diprivan. Opening eyes left more than right. Ventriculostomy drain in place at 11hrW13. ICP 15 draining clear CSF. 08/01/17: Pt on sedative drips Fentanyl and Diprivan. Pupils 4mm bilaterally reactive bilaterally. Ventriculostomy drain at 99yxH32. ICP 8 currently. Draining clear CSF. 08/02/17: Pt on Fentanyl and Diprivan drip. He opens eyes to deep pain. Pupils 3mm bilaterally reactive bilaterally. Ventric in place at 15cm H20, draining Clear CSF. 08/03/17: Pt on very low dose Fentanyl. He opens his eyes to pain. Pupils 4mm bilaterally reactive bilaterally. Ventriculostomy in place at [id number]. ICP 5. Sticks out tongue slightly to command. Not following in extremities but edematous. 08/06/17: Pt opens eyes to painful stimuli for brief periods of time. He sticks out tongue to command. Not following consistently in extremities. Ventriculostomy drain in place at 46ohO67 and clamped. ICP 5-7 range. 08/07/17: Pt opens eyes to voice. Appears more alert with some tracking. Not following commands for me this morning. Withdraws to pain. System Review Comments Not able to obtain given clinical condition. Exam Results Vital Signs Date Time Temp Pulse Resp B/P (MAP) Pulse Ox O2 Delivery O2 Flow Rate FiO2 08/07/17 07:59 100 30 08/07/17 06:00 76 08/07/17 04:00 98.9 20 129/63 (85) Intake and Output 08/07/17 08/07/17 08/08/17 08:00 16:00 00:00 Intake Total 752 ml Output Total 1525 ml Balance -773 ml Physical Examination General: Pt in bed in no acute distress with stable vital signs. Eyes: Pupils equal 4mm bilaterally reactive bilaterally. Sclera anicteric. Resp: Trach in place on PRVC A/C rate 20. Peep 5. FiO2 30%. CTA bilaterally. Heart: NSR no murmurs Abd: Soft positive bs. TFs on hold. Skin: No cyanosis or erythema. SCDs in place. Muscle: Not following in extremities for muscle testing. Some flexion in UEs to pain in upper chest. Withdraws extremities to pain. Neuro: Pt opening eyes to voice. Appears to focus on my face. Not following commands today. Pupils 4mm bilaterally reactive bilaterally. Lab, Micro, Other Results Last Impressions Chest X-Ray 08/06/17 0600 Signed Impressions: Service Date/Time: Sunday, August 06, 2017 03:37 - CONCLUSION: 1. No confluent infiltrates or effusions are not identified. 2. The tracheostomy tube remains in place. Buck Henry MD Head CT 08/05/17 0600 Signed Impressions: Service Date/Time: Saturday, August 05, 2017 04:53 - CONCLUSION: 1. Decreasing brain edema and mass effect. Multiple evolving infarcts as above. Previous right frontal ventriculostomy tube placement and occipital craniotomy. Ananda Messina MD Lower Extremity Ultrasound 08/05/17 0000 Signed Impressions: Service Date/Time: Saturday, August 05, 2017 16:06 - CONCLUSION: 1. No sonographic evidence for lower extremity DVT. Sanchez Canada MD Abdomen X-Ray 07/27/17 0000 Signed Impressions: Service Date/Time: Thursday, July 27, 2017 20:37 - CONCLUSION: NG tube coiled in the lower thoracic esophagus. Oumar Bray Jr., MD Head/Brain Mag Res Venography 07/25/17 0000 Signed Impressions: Service Date/Time: Tuesday, July 25, 2017 19:54 - CONCLUSION: Patent dural sinuses. Lonnie Munguia MD Brain MRI 07/25/17 0000 Signed Impressions: Service Date/Time: Tuesday, July 25, 2017 10:37 - CONCLUSION: Worsening brain appearance with developing hydrocephalus which is presumably related to increasing edema in the posterior fossa. See above discussion. Lonnie Lock MD Neck Magnetic Resonance Angiography 07/21/17 0000 Signed Impressions: Service Date/Time: Friday, July 21, 2017 08:40 - CONCLUSION: No acute neck arteriovascular abnormality is identified. There is no significant stenosis within either internal carotid artery. Lonnie Ross MD Head Magnetic Resonance Angiography 07/21/17 0000 Signed Impressions: Service Date/Time: Friday, July 21, 2017 08:40 - CONCLUSION: No acute intracranial vascular abnormality is identified. Lonnie Ross MD Abdomen Ultrasound 07/21/17 0000 Signed Impressions: Service Date/Time: Friday, July 21, 2017 15:47 - CONCLUSION: Cholelithiasis. No gallbladder wall thickening or pericholecystic fluid. Victor Manuel Barros MD Laboratory Tests Test 08/06/17 17:40 08/06/17 22:20 08/07/17 04:35 Potassium Level 3.6 MEQ/L Vancomycin Level Trough 12.2 MCG/ML Stool C. difficile Toxin (PCR) NEGATIVE Stl C. difficile Toxin Epiderm 027 PRESUMPTIVE NEGATIVE White Blood Count 12.1 TH/MM3 Red Blood Count 3.11 MIL/MM3 Hemoglobin 9.6 GM/DL Hematocrit 29.2 % Mean Corpuscular Volume 93.8 FL Mean Corpuscular Hemoglobin 30.9 PG Mean Corpuscular Hemoglobin Concent 33.0 % Red Cell Distribution Width 14.2 % Platelet Count 358 TH/MM3 Mean Platelet Volume 7.8 FL Neutrophils (%) (Auto) 72.5 % Lymphocytes (%) (Auto) 14.8 % Monocytes (%) (Auto) 7.5 % Eosinophils (%) (Auto) 4.2 % Basophils (%) (Auto) 1.0 % Neutrophils # (Auto) 8.8 TH/MM3 Lymphocytes # (Auto) 1.8 TH/MM3 Monocytes # (Auto) 0.9 TH/MM3 Eosinophils # (Auto) 0.5 TH/MM3 Basophils # (Auto) 0.1 TH/MM3 CBC Comment DIFF FINAL Differential Comment 08/07/17 08/07/17 08/08/17 15:00 23:00 07:00 Intake Total 161 ml Balance 161 ml IV Total 161 ml Medical Decision Making Impression and Plan A: 66-year-old gentleman with multifocal infarcts involving both hemispheres supratentorially as well as bilateral cerebellar hemispheres with worsening edema and obstructive hydrocephalus. His neurologic examination is very poor. Discussed with over the phone and recommended an emergent ventriculostomy placement to treat the obstructive hydrocephalus. If there is noted improvement subsequently and the option of possible suboccipital craniectomy for decompression could be considered if the family chooses to continue with the aggressive management although this would be a heroic procedure. The at this point consents to ventriculostomy placement and this was witnessed by the nursing staff. Pt underwent a Bilateral suboccipital decompressive craniectomy; expensive dural bovine patch graft; left cerebellar hemisphere brain biopsy on 07/26/17. P: Continue with critical care, weaning vent. Continue with current care. Rehab efforts. Shakir Carroll August 07, 2017 8:55 am
[2017-08-07] MEDS: ARTIFICIAL TEARS OPTH SOLN 15 ML BTL EACH EYE SCH ×3 (09:40→17:14)
[2017-08-07] MEDS: POLYETHYLENE GLYCOL 17 GM PKG PO SCH (09:40)
[2017-08-07] MEDS: SODIUM CHLORIDE 0.9% FLUSH 10 ML FLUSH IV FLUSH SCH ×2 (09:40→20:54)
[2017-08-07] MEDS: amLODIPine BESYLATE 5 MG TAB PO SCH ×2 (09:41→20:54)
[2017-08-07] MEDS: LANSOPRAZOLE SOLUTAB 30 MG TAB NG SCH (09:41)
[2017-08-07] MEDS: NYSTATIN SUSP 500,000 U/5 ML CUP SWISH-SWAL SCH ×4 (09:41→20:54)
[2017-08-07] MEDS: LACTULOSE SYRUP 20 GM/30 ML CUP PO SCH ×2 (09:41→20:54)
[2017-08-07] MEDS: LACTOBACILLUS ACIDOPHILUS TAB PO SCH ×3 (09:41→17:14)
[2017-08-07] MEDS: LISINOPRIL 10 MG TAB PO SCH (09:41)
[2017-08-07] MEDS: POTASSIUM CHLORIDE 20 MEQ PWD PACKET NG SCH ×2 (09:42→20:54)
[2017-08-07] MEDS: DOCUSATE SODIUM 50 MG/SENNA 8.6 MG TAB PO SCH (09:44)
[2017-08-07] MEDS: FUROSEMIDE 40 MG/4 ML VIAL IV PUSH SCH (09:44)
[2017-08-07] MEDS: levETIRAcetam INJ 750 MG in SODIUM CHLORIDE 0.9% INJ 100 ML IV SCH ×2 (11:14→21:24)
--- NOTE | 2017-08-07 13:03 | PD.CARD.PN ---
Subjective Subjective Remarks trached, on iv fentanyl, and neurosurgery note improvements in neurologic trends, but still not following simple commands Objective Medications Current Medications Medications (Trade) Dose Ordered Sig/Claudia Route Start Time Stop Time Status Last Admin (NS Flush) 2 ml UNSCH PRN IV FLUSH 07/21/17 00:00 (NS Flush) 2 ml BID IV FLUSH 07/21/17 09:00 08/07/17 09:40 (Tears Naturale Opth Soln) 1 drop TID EACH EYE 07/21/17 09:00 08/07/17 09:40 (Albuterol Neb) 2.5 mg Q2HR NEB PRN INH 07/21/17 00:00 08/03/17 08:20 ([facility] Nursing Information) 1 Q361D XX 07/21/17 00:00 07/21/17 00:00 (Chlorhexidine 2% Cloth) Taper DAILY@04 TOP 07/21/17 04:00 07/17/18 03:59 08/07/17 03:45 (Chlorhexidine 2% Cloth) 3 pack UNSCH PRN TOP 07/21/17 00:00 (Milk Of Magnesia Liq) 30 ml Q12H PRN PO 07/21/17 00:00 (Senokot) 17.2 mg Q12H PRN PO 07/21/17 00:00 (Dulcolax Supp) 10 mg DAILY PRN RECTAL 07/21/17 00:00 (Lactulose Liq) 30 ml DAILY PRN PO 07/21/17 00:00 (Peridex 0.12% Liq) 15 ml BID@08,20 MT 07/21/17 08:00 08/07/17 08:01 (D50w (Vial) Inj) 50 ml UNSCH PRN IV PUSH 07/21/17 00:00 (Glucagon Inj) 1 mg UNSCH PRN OTHER 07/21/17 00:00 (NovoLOG SUPPLEMENTAL SCALE) 1 Q6HR SQ 07/21/17 00:00 07/30/17 17:49 (Pulmicort Respule Neb) 0.5 mg Q12HR NEB NEB 07/21/17 08:00 08/07/17 07:58 (Brethine Inj) 1 mg UNSCH PRN SQ 07/21/17 00:30 (Apresoline Inj) 10 mg Q1H PRN IV PUSH 07/22/17 09:45 07/24/17 19:51 (Nitroglycerin 2% Oint) 2 inch Q6H PRN TOPICAL 07/22/17 09:45 Levetriacetam 750 mg/Sodium Chloride 107.5 ml @ 420 mls/hr Q12H IV 07/25/17 10:00 08/07/17 11:14 (Brethine Inj) 1 mg UNSCH PRN SQ 07/26/17 09:45 Propofol 100 ml @ 3.102 mls/ hr TITRATE PRN IV 07/26/17 11:00 08/02/17 06:43 Fentanyl Citrate 250 ml @ 5 mls/hr TITRATE PRN IV 07/26/17 11:00 08/04/17 21:26 (Lactinex) 1 tab TID PO 07/28/17 18:00 08/07/17 09:41 (Norvasc) 5 mg BID PO 07/29/17 09:00 08/07/17 09:41 (Prinivil) 10 mg DAILY PO 07/29/17 09:00 08/07/17 09:41 (Apresoline) 50 mg Q8H PRN PO 07/30/17 09:15 Pharmacy Profile Note 0 ml @ 0 mls/hr UNSCH OTHER 07/30/17 13:00 (Apresoline) 100 mg Q8H PO 07/30/17 18:00 08/07/17 11:20 ([facility] Nursing Information) D/C ICU ELECTROLYTE ORDERS... UNSCH PRN .XX 08/01/17 08:30 ([facility] Nursing Information) ICU - CALL ORDERING PHYSIC... UNSCH PRN .XX 08/01/17 08:30 Potassium Chloride 100 ml @ 25 mls/hr UNSCH PRN IV 08/01/17 08:30 (K-Lyte Cl Eff) 50 meq UNSCH PRN PO 08/01/17 08:30 Potassium Chloride 100 ml @ 50 mls/hr UNSCH PRN IV 08/01/17 08:30 08/06/17 12:01 Magnesium Sulfate 4 gm/Sodium Chloride 108 ml @ 54 mls/hr UNSCH PRN IV 08/01/17 08:30 Magnesium Sulfate 2 gm/Sodium Chloride 104 ml @ 52 mls/hr UNSCH PRN IV 08/01/17 08:30 (Mag-Ox) 800 mg UNSCH PRN PO 08/01/17 08:30 Sodium Phosphate 30 mmol/Sodium Chloride 260 ml @ 43.333 mls/ hr UNSCH PRN IV 08/01/17 08:30 (K-Phos) 2,000 mg UNSCH PRN PO 08/01/17 08:30 Potassium Phosphate 30 mmol/ Sodium Chloride 260 ml @ 43.333 mls/ hr UNSCH PRN IV 08/01/17 08:30 Vancomycin HCl 1500 mg/Sodium Chloride 515 ml @ 250 mls/hr Q12H IV 08/03/17 17:00 08/07/17 05:17 (Mycostatin Liq) 5 ml QID SWISH-SWAL 08/03/17 18:00 08/07/17 09:41 (KCl Powder) 20 meq Q12HR NG 08/04/17 21:00 08/07/17 09:42 (Duoneb Neb) 1 ampule Q6HR NEB NEB 08/04/17 16:00 08/07/17 07:59 (Lasix Inj) 20 mg DAILY IV PUSH 08/06/17 09:00 08/07/17 09:44 (Prevacid Odt) 30 mg DAILY NG 08/06/17 09:00 08/07/17 09:41 (Dilia-Colace) 1 tab DAILY PO 08/06/17 09:00 08/07/17 09:44 (Lactulose Liq) 30 ml BID PO 08/05/17 21:00 08/07/17 09:41 (Miralax) 17 gm DAILY PO 08/06/17 09:00 08/07/17 09:40 (Zofran Odt) 4 mg Q6H PRN .XX 08/05/17 23:15 Piperacillin Sod/ Tazobactam Sod 100 ml @ 200 mls/hr Q6H IV 08/06/17 20:00 08/07/17 08:01 ([facility] Pharmacy Ordered Lab Info) SPECIFIC LAB TO BE DRAWN:VANCO TROUGH DATE TO BE DRGustavo.. ONCE ONCE .XX 08/08/17 16:45 08/08/17 16:46 Vital Signs / I&O Vital Signs Date Time Temp Pulse Resp B/P (MAP) Pulse Ox O2 Delivery O2 Flow Rate FiO2 08/07/17 12:37 100 08/07/17 12:00 98.7 85 20 109/61 (77) 99 08/07/17 12:00 30 08/07/17 12:00 85 08/07/17 10:00 84 08/07/17 08:00 76 08/07/17 08:00 99.3 76 21 156/73 (100) 100 08/07/17 08:00 30 08/07/17 07:59 100 30 08/07/17 06:00 76 08/07/17 04:00 82 08/07/17 04:00 30 08/07/17 04:00 98.9 82 20 129/63 (85) 99 08/07/17 03:19 99 30 08/07/17 02:00 68 08/07/17 00:10 100 30 08/07/17 00:00 30 08/07/17 00:00 99.2 78 20 121/66 (84) 100 08/07/17 00:00 78 08/06/17 22:00 78 08/06/17 20:30 99 30 08/06/17 20:00 82 08/06/17 20:00 30 08/06/17 20:00 98.8 82 20 115/60 (78) 100 08/06/17 18:00 81 08/06/17 16:00 98.8 89 27 100/52 (68) 100 08/06/17 16:00 30 08/06/17 16:00 85 08/06/17 15:25 100 30 08/06/17 14:00 85 I/O 08/06/17 08/06/17 08/06/17 08/07/17 08/07/17 08/07/17 07:00 15:00 23:00 07:00 15:00 23:00 Intake Total 937 ml 672 ml 591 ml 1181 ml Output Total 800 ml 1900 ml 1525 ml 2000 ml Balance 137 ml -1228 ml -934 ml -819 ml IV Total 161 ml Tube Feeding 537 ml 622 ml 591 ml Tube Irrigant 50 ml Other 400 ml 0 ml 1020 ml Output Urine Total 800 ml 1800 ml 925 ml 1750 ml Stool Total 100 ml 600 ml 250 ml Drainage Total 0 ml # Bowel Movements 3 Physical Exam GENERAL: SKIN: Warm and dry. HEAD: Normocephalic. EYES: No scleral icterus. No injection or drainage. NECK: Supple, trachea midline. No JVD or lymphadenopathy. CARDIOVASCULAR: Regular rate and rhythm without murmurs, gallops, or rubs. RESPIRATORY: Breath sounds equal bilaterally. No accessory muscle use. GASTROINTESTINAL: Abdomen soft, non-tender, nondistended. MUSCULOSKELETAL: No cyanosis, or edema. BACK: Nontender without obvious deformity. No CVA tenderness. Laboratory Laboratory Tests Test 08/06/17 17:40 08/06/17 22:20 08/07/17 04:35 Potassium Level 3.6 MEQ/L Vancomycin Level Trough 12.2 MCG/ML Stool C. difficile Toxin (PCR) NEGATIVE Stl C. difficile Toxin Epiderm 027 PRESUMPTIVE NEGATIVE White Blood Count 12.1 TH/MM3 Red Blood Count 3.11 MIL/MM3 Hemoglobin 9.6 GM/DL Hematocrit 29.2 % Mean Corpuscular Volume 93.8 FL Mean Corpuscular Hemoglobin 30.9 PG Mean Corpuscular Hemoglobin Concent 33.0 % Red Cell Distribution Width 14.2 % Platelet Count 358 TH/MM3 Mean Platelet Volume 7.8 FL Neutrophils (%) (Auto) 72.5 % Lymphocytes (%) (Auto) 14.8 % Monocytes (%) (Auto) 7.5 % Eosinophils (%) (Auto) 4.2 % Basophils (%) (Auto) 1.0 % Neutrophils # (Auto) 8.8 TH/MM3 Lymphocytes # (Auto) 1.8 TH/MM3 Monocytes # (Auto) 0.9 TH/MM3 Eosinophils # (Auto) 0.5 TH/MM3 Basophils # (Auto) 0.1 TH/MM3 CBC Comment DIFF FINAL Differential Comment Assessment and Plan Problem List: (1) Toxic metabolic encephalopathy ICD Codes: G92 - Toxic encephalopathy (2) Tetrahydrocannabinol (THC) use disorder, mild, abuse ICD Codes: F12.10 - Cannabis abuse, uncomplicated (3) Encephalopathy ICD Codes: G93.40 - Encephalopathy, unspecified (4) Stroke ICD Codes: I63.9 - Cerebral infarction, unspecified (5) Chronic, continuous use of opioids ICD Codes: F11.90 - Opioid use, unspecified, uncomplicated (6) Cocaine use ICD Codes: F14.90 - Cocaine use, unspecified, uncomplicated Assessment and Plan 1.) Cleared by neurosurgery for SWAPNIL, not sure if findings will exchange teller as neurologic prognosis appears poor, d/w ID 08/04/17; SWAPNIL not currently indicated, d/w nurse at bedside 08/06/17; consider swapnil if still indicated from ID standpoint and patient has meaningful neurologic recovery Navid Corrales MD August 07, 2017 13:03
--- NOTE | 2017-08-07 13:45 | RADRPT ---
EXAM DATE: 08/07/2017 1:36 PM EDT AGE/SEX: 66 years / Male INDICATIONS: Fever CLINICAL DATA: This is the patient's initial encounter. Patient reports that signs and symptoms have been present for 1 day and indicates a pain score of Nonresponsive. MEDICAL/SURGICAL HISTORY: Hypertension. Chronic obstructive pulmonary disease. None. RADIATION DOSE: 8.71 CTDI (mGy) COMPARISON: No prior [facility] exams available for comparison. TECHNIQUE: Multiple contiguous axial images were obtained through the abdomen. Images were obtained using multiple row detector helical technique. Using dose reduction techniques, radiation dose was ke pt as low as reasonably achievable to obtain optimal diagnostic quality images. FINDINGS: Lower Lungs: Mild pleural thickening is seen posteriorly in both lung bases. There is minim al left basilar airspace disease. Liver: The liver has a homogeneous density without space-occupying lesion. There is no dilation of th e biliary tree. Spleen: Homogeneous density without enlargement. Pancreas: Unremarkable without mass or calcification. Kidneys: Small nonobstructing calculi are identified centrally in each kidney. There is no evidence of hydronephrosis. There are no suspicious renal masses. Adrenal Glands: Unremarkable. Aorta: The aorta and proximal iliac vessels are grossly unremarkable without aneurysmal dilation. Bowel/Mesentery: Percutaneous gastrostomy tube is in place. The bowel loops are grossly unremarkable. There is no evidence of ileus, free air or loculated fluid collections. There are no mesenteric infl ammatory changes. Abdominal Wall: Intact. Retroperitoneum: No evidence of adenopathy in the retrocrural, para-aortic, or deep pelvic regions. Bladder: Contours are smooth. Reproductive Organs: No abnormal masses or calcifications seen. Inguinal: The inguinal region is unremarkable without evidence of adenopathy. Bony Structures: Postsurgical changes are seen in the lower lumbar spine following laminectomy and f usion. There are no destructive bone changes. CONCLUSION: 1. Mild left basilar airspace disease 2. Small nonobstructing renal calculi 3. No evidence of acute intestinal process, abscess or mass. 4. Status post lumbar fusion. Electronically signed by: Segun Hines MD 08/07/2017 1:43 PM EDT
--- NOTE | 2017-08-07 14:31 | RADRPT ---
EXAM DATE: 08/07/2017 2:13 PM EDT AGE/SEX: 66 years / Male INDICATIONS: . Unresponsive. CLINICAL DATA: This is the patient's subsequent encounter. Patient reports that signs and symptoms h ave been present for 3 weeks and indicates a pain score of Nonresponsive. MEDICAL/SURGICAL HISTORY: Hypertension. Diabetes mellitus type II. Craniotomy. Fusion, cervic al. colon resection COMPARISON: [facility] [place], MRI BRAIN W & W/O CONTRAST, 07/25/2017. . TECHNIQUE: Multiplanar, multisequence examination of the brain was performed without and with 17 ml O mniscan (gadodiamide) contrast as a single exam dose. FINDINGS: Today's exam is compared to study of 07/25/2017. There continues to be nonspecific edema throughout bot h cerebellar hemispheres. The edema appears to be mildly decreased compared to the prior study. The f ourth ventricle is slightly better visualized on today's examination. The fourth ventricle remains mi dline in position. The previously noted edema in the occipital lobes has improved. However, there con tinues to be prominent edema in the basal ganglia regions bilaterally without significant change. The re continues to be some stable high signal spots in the white matter tracts bilaterally. The lateral ventricles and third ventricle have decreased in size on today's examination. The ventricles are with in normal limits for size. There is no midline shift. There continues to be areas of restricted diffu dale in both cerebellar hemispheres without significant change compared to the prior study. There has been improvement with the restricted diffusion in the occipital lobes compared to the prior study. T here continues to be restricted diffusion in the basal ganglia regions bilaterally which is stable. T here is a few small scattered areas of restricted diffusion along the cerebral vertex bilaterally. Th raine areas appear to be stable. The pituitary gland is not enlarged. CONCLUSION: 1. Compared to the prior exam the previously noted edema in the posterior fossa has improved. The pr eviously noted edema in both occipital lobes has improved. 2. The lateral ventricles and third ventricle are now normal in size and midline in position. There is improved visualization of the fourth ventricle which is midline in position. 3. Otherwise, the rest of the MRI is stable compared to the prior exam. Electronically signed by: Dimitrios Pittman MD 08/07/2017 2:30 PM EDT
--- NOTE | 2017-08-07 14:38 | HHI.HCPN ---
Reason for visit a. To assist with evaluation and management of symptoms including: pain; encephalopathy; dyspnea b. To assist medical decision maker(s) with: better understanding of current medical conditions; weighing benefits/burdens of medical treatment options; making medical treatment decisions. . Subjective/Interval History Patient seen and examined in ICU. at bedside. Also present Roxy Bray LCSW and nurses Marylou and Constantino. Ventriculostomy has been removed since my last visit and PEG tube was placed. He remains on [facility] vent to trach, FiO2 30%. Clinical data review: * Tmax 99.3, HR 76-85, BP 156/73. * CSF no growth in 72 hours. * 08/05/17 - Sputum culture Pseudomonas Aeruginosa (vazquez sensitive) * WBC 12.1, hemoglobin 9.6, hematocrit 29.2, platelets 358. * CT abdomen/ pelvis - mild left basilar airspace disease, small non- obstructing renal calculi, no evidence of acute intestinal process, abscess or mass, status post lumbar fusion. * MRI brain results pending. * Patient has been referred to [facility], awaiting insurance authorization. * No evidence of pain, shortness of breath or agitation during my visit. . Family/friend interactions Spoke with , medical update provided. [facility]ed [facility] vs. SNF placement. Reviewed concern for poor prognosis for meaningful recovery and potential need for lobsterman care in SNF if no neurologic improvement, she was very upset by the mention of group home. She plans to go to [facility] to see the facility. Questions answered. . Advance Directives Living Will: Copy in medical record Health Care Surrogate: Copy in medical record Durable Power of Supervisor Blood Donor Recruiters: Completed, but not made available Advance Directive Specifics Date completed: Living will and healthcare surrogate designation were completed on 09/29/2016. . Health Care Surrogate(s): The healthcare surrogate is the patient's spouse--Coty Weaver . Documented care wishes: The patient's living will is the standard [place] living will. He has initialed only one condition to activate his wishes -- if he has "an end-stage condition." He would not want life prolonging procedures should be diagnosed with such condition. . Significant change in goals: FULL CODE. Goals remain aggressive. . Objective Vital Signs Date Time Temp Pulse Resp B/P (MAP) Pulse Ox O2 Delivery O2 Flow Rate FiO2 08/07/17 12:37 100 08/07/17 12:00 98.7 85 20 109/61 (77) 99 08/07/17 12:00 30 08/07/17 12:00 85 08/07/17 10:00 84 08/07/17 08:00 76 08/07/17 08:00 99.3 76 21 156/73 (100) 100 08/07/17 08:00 30 08/07/17 07:59 100 30 08/07/17 06:00 76 08/07/17 04:00 82 08/07/17 04:00 30 08/07/17 04:00 98.9 82 20 129/63 (85) 99 08/07/17 03:19 99 30 08/07/17 02:00 68 08/07/17 00:10 100 30 08/07/17 00:00 30 08/07/17 00:00 99.2 78 20 121/66 (84) 100 08/07/17 00:00 78 08/06/17 22:00 78 08/06/17 20:30 99 30 08/06/17 20:00 82 08/06/17 20:00 30 08/06/17 20:00 98.8 82 20 115/60 (78) 100 08/06/17 18:00 81 08/06/17 16:00 98.8 89 27 100/52 (68) 100 08/06/17 16:00 30 08/06/17 16:00 85 08/06/17 15:25 100 30 Intake & Output 08/07/17 08/07/17 07:00 19:00 Intake Total 591 ml 1181 ml Output Total 1525 ml 2000 ml Balance -934 ml -819 ml IV Total 161 ml Tube Feeding 591 ml Other 0 ml 1020 ml Output Urine Total 925 ml 1750 ml Stool Total 600 ml 250 ml Physical Exam CONSTITUTIONAL/GENERAL: This is an adequately nourished patient, lightly sedated in a surgical intensive care unit bed. TUBES/LINES/DRAINS: Tracheostomy, PEG tube, wrist restraints, SCDs. HEAD: Ventriculostomy on right. SKIN: Multiple tattoos. No jaundice, rashes, or lesions. 2cm reddened area noted on left thigh, open to air, no drainage. Skin temperature appropriate. Not diaphoretic. EYES: Eyes open, not tracking. ENT: tracheostomy. CARDIOVASCULAR: Regular rate and rhythm without murmurs. RESPIRATORY/CHEST: Symmetric, unlabored respirations on vent. Decreased breath sounds bilaterally. GASTROINTESTINAL: Abdomen soft, non-tender, slightly distended. Bowel sounds present. GENITOURINARY: Without palpable bladder distension. MUSCULOSKELETAL: Extremities with trace edema. NEUROLOGICAL: Opens eyes, does not track. Unable to complete full neuro assessment as nurses are bathing/ changing patient. PSYCHIATRIC: Awake and calm. . Diagnostic Tests Laboratory Laboratory Tests Test 08/04/17 16:40 08/05/17 06:00 08/06/17 04:17 08/06/17 17:40 Vancomycin Level Trough 18.1 MCG/ML (5.0-10.0) 12.2 MCG/ML (5.0-10.0) White Blood Count 13.2 TH/MM3 (4.0-11.0) Red Blood Count 3.07 MIL/MM3 (4.50-5.90) Hemoglobin 9.8 GM/DL (13.0-17.0) Hematocrit 29.2 % (39.0-51.0) Mean Corpuscular Volume 95.0 FL (80.0-100.0) Mean Corpuscular Hemoglobin 31.9 PG (27.0-34.0) Mean Corpuscular Hemoglobin Concent 33.5 % (32.0-36.0) Red Cell Distribution Width 13.7 % (11.6-17.2) Platelet Count 351 TH/MM3 (150-450) Mean Platelet Volume 8.1 FL (7.0-11.0) Blood Urea Nitrogen 21 MG/DL (7-18) 18 MG/DL (7-18) Creatinine 0.60 MG/DL (0.60-1.30) 0.55 MG/DL (0.60-1.30) Random Glucose 117 MG/DL (74-106) 103 MG/DL (74-106) Total Protein 5.8 GM/DL (6.4-8.2) Albumin 2.2 GM/DL (3.4-5.0) Calcium Level 8.0 MG/DL (8.5-10.1) 8.0 MG/DL (8.5-10.1) Phosphorus Level 2.8 MG/DL (2.5-4.9) 2.9 MG/DL (2.5-4.9) Magnesium Level 2.2 MG/DL (1.5-2.5) 2.5 MG/DL (1.5-2.5) Alkaline Phosphatase 65 U/L (45-117) Aspartate Amino Transf (AST/SGOT) 28 U/L (15-37) Alanine Aminotransferase (ALT/SGPT) 68 U/L (12-78) Total Bilirubin 0.3 MG/DL (0.2-1.0) Direct Bilirubin 0.1 MG/DL (0.0-0.2) Sodium Level 147 MEQ/L (136-145) 147 MEQ/L (136-145) Potassium Level 3.3 MEQ/L (3.5-5.1) 3.4 MEQ/L (3.5-5.1) 3.6 MEQ/L (3.5-5.1) Chloride Level 112 MEQ/L (98-107) 113 MEQ/L (98-107) Carbon Dioxide Level 26.6 MEQ/L (21.0-32.0) 26.3 MEQ/L (21.0-32.0) Anion Gap 8 MEQ/L (5-15) 8 MEQ/L (5-15) Estimat Glomerular Filtration Rate 135 ML/MIN (>89) 149 ML/MIN (>89) Indirect Bilirubin 0.2 MG/DL (0.0-0.8) Ammonia 50 MCMOL/L (11-32) Total Creatine Kinase 145 U/L (39-308) Amylase Level 100 U/L (25-115) Test 08/06/17 22:20 08/07/17 04:35 Stool C. difficile Toxin (PCR) NEGATIVE (NEGATIVE) Stl C. difficile Toxin Epiderm 027 PRESUMPTIVE NEGATIVE White Blood Count 12.1 TH/MM3 (4.0-11.0) Red Blood Count 3.11 MIL/MM3 (4.50-5.90) Hemoglobin 9.6 GM/DL (13.0-17.0) Hematocrit 29.2 % (39.0-51.0) Mean Corpuscular Volume 93.8 FL (80.0-100.0) Mean Corpuscular Hemoglobin 30.9 PG (27.0-34.0) Mean Corpuscular Hemoglobin Concent 33.0 % (32.0-36.0) Red Cell Distribution Width 14.2 % (11.6-17.2) Platelet Count 358 TH/MM3 (150-450) Mean Platelet Volume 7.8 FL (7.0-11.0) Neutrophils (%) (Auto) 72.5 % (16.0-70.0) Lymphocytes (%) (Auto) 14.8 % (9.0-44.0) Monocytes (%) (Auto) 7.5 % (0.0-8.0) Eosinophils (%) (Auto) 4.2 % (0.0-4.0) Basophils (%) (Auto) 1.0 % (0.0-2.0) Neutrophils # (Auto) 8.8 TH/MM3 (1.8-7.7) Lymphocytes # (Auto) 1.8 TH/MM3 (1.0-4.8) Monocytes # (Auto) 0.9 TH/MM3 (0-0.9) Eosinophils # (Auto) 0.5 TH/MM3 (0-0.4) Basophils # (Auto) 0.1 TH/MM3 (0-0.2) CBC Comment DIFF FINAL Differential Comment Result Diagram: 08/07/17 0435 08/06/17 1740 Microbiology Microbiology Date/Time Source Procedure Growth Status 08/05/17 15:53 Sputum Endotracheal Gram Stain - Final Resulted 08/05/17 15:53 Sputum Culture - Preliminary Pseudomonas Aeruginosa Resulted Imaging Last Impressions Abdomen/Pelvis CT 08/07/17 1937 Signed Impressions: CONCLUSION: Chest X-Ray 08/06/17 0600 Signed Impressions: Service Date/Time: Sunday, August 06, 2017 03:37 - CONCLUSION: 1. No confluent infiltrates or effusions are not identified. 2. The tracheostomy tube remains in place. Buck Henry MD Head CT 08/05/17 0600 Signed Impressions: Service Date/Time: Saturday, August 05, 2017 04:53 - CONCLUSION: 1. Decreasing brain edema and mass effect. Multiple evolving infarcts as above. Previous right frontal ventriculostomy tube placement and occipital craniotomy. Ananda Messina MD Lower Extremity Ultrasound 08/05/17 0000 Signed Impressions: Service Date/Time: Saturday, August 05, 2017 16:06 - CONCLUSION: 1. No sonographic evidence for lower extremity DVT. Sanchez Canada MD Abdomen X-Ray 07/27/17 0000 Signed Impressions: Service Date/Time: Thursday, July 27, 2017 20:37 - CONCLUSION: NG tube coiled in the lower thoracic esophagus. Oumar Bray Jr., MD Head/Brain Mag Res Venography 07/25/17 0000 Signed Impressions: Service Date/Time: Tuesday, July 25, 2017 19:54 - CONCLUSION: Patent dural sinuses. Lonnie Munguia MD Brain MRI 07/25/17 0000 Signed Impressions: Service Date/Time: Tuesday, July 25, 2017 10:37 - CONCLUSION: Worsening brain appearance with developing hydrocephalus which is presumably related to increasing edema in the posterior fossa. See above discussion. Lonnie Lock MD Neck Magnetic Resonance Angiography 07/21/17 0000 Signed Impressions: Service Date/Time: Friday, July 21, 2017 08:40 - CONCLUSION: No acute neck arteriovascular abnormality is identified. There is no significant stenosis within either internal carotid artery. Lonnie Ross MD Head Magnetic Resonance Angiography 07/21/17 0000 Signed Impressions: Service Date/Time: Friday, July 21, 2017 08:40 - CONCLUSION: No acute intracranial vascular abnormality is identified. Lonnie Ross MD Abdomen Ultrasound 07/21/17 Signed Impressions: Service Date/Time: Friday, July 21, 2017 15:47 - CONCLUSION: Cholelithiasis. No gallbladder wall thickening or pericholecystic fluid. Victor Manuel Barros MD Procedures * Intubation/mechanical ventilation * Ventriculostomy drain placement * Central line placement * Decompressive suboccipiatl craniotomy 07/26/17 . . Assessment and Plan Disease Oriented Problem List: (1) Stroke Comment: Evolving with obstructive hydrocephalus and cerebral edema requiring emergent ventriculostomy placement on 07/25/17 . (2) Acute respiratory failure (3) Seizure Comment: EEG negative on 07/25/17 but political geographer felt patient had seizure activity. Would not be surprising given level of cerebral edema. . (4) Failed back syndrome (5) COPD (chronic obstructive pulmonary disease) (6) Hyperkalemia (7) Acute kidney injury (8) Rhabdomyolysis (9) Tobacco abuse disorder (10) Chronic, continuous use of opioids (11) Depression (12) Hypertension (13) Hyperlipidemia Symptom Scale: (1) Pain 0-10 Scale: Unable to quantify Comment: Patient has long history of chronic pain from his back for which he has undergone multiple surgeries. Has been on chronic opioids for many years. Additional sources of pain might now also include recent craniotomy; cerebral edema; prisca hole placement; prolonged bedbound status; Garner catheter; vascular access catheters; restraints; orotracheal intubation; orogastric intubation. . (2) Encephalopathy 0-10 Scale: Unable to quantify Comment: Encephalopathy may be multifactorial. It appears he has had multiple strokes, cerebral edema, acute kidney injury, and electrolyte abnormalities all of which which are likely contributing to encephalopathy. . . (3) Dyspnea 0-10 Scale: Unable to quantify Comment: Currently managed with mechanical ventilation. . Pertinent Non-Medical Issues Psychosocial: Patient is well supported locally by his spouse. He has a biological son who lives in [place], [place], but who is here now. Spiritual: [employer] and spirituality have not played an important role in his life. Legal: Patient has a living will and designation of healthcare surrogate currently scanned into our electronic medical record. His is his surrogate. Ethical issues impacting care: Patient is currently incapacitated to make his own healthcare decisions. It is unclear if/when he will regain capacity to do so. . Important Contacts * Coty Weaver (spouse and health care surrogate) [phone] and * Blake Castillo (son) [phone] . Prognosis The patient's prognosis is now much worse with the obstructive hydrocephalus and cerebral edema requiring emergent ventriculostomy placement and then decompressive craniotomy. Should he survive the hospitalization, chances of meaningful recovery are much less. . Code Status: Full Code Plan * Decision Making: Patient is currently incapacitated to make his own healthcare decisions, unlikely that he will regain capacity. He has designated his spouse--Coty Weaver as healthcare surrogate. * FULL CODE * Goals of medical treatment: Goals currently remain aggressive, including FULL CODE. Being evaluated by [facility], pending insurance auth. is awaiting determination regarding transfer to LTAC. Symptoms (see symptom descriptions above): * Pain: Patient has multiple acute sources of pain as noted above, on top of his chronic back pain. Does not appear painful. No further recommendations at this time. * Dyspnea: Patient is a long-term smoker and now unable to protect his airway. Dyspnea is currently being managed by mechanical ventilation. Plan for LTAC. No further recommendations at this time.. * Encephalopathy multifactorial.: We will continue to address the fixable contributors such as metabolic issues and possible infection. Psychoactive drugs present in urine tox screen have probably all cleared by now. Main source of encephalopathy now the stroke and associated edema. Palliative care will continue to follow to assist with symptom management and to further clarify goals of medical treatment as the clinical course evolves. . . Attestation To help prompt me to consider important information that might be impacting today's encounter and assessment, information from prior notes written by myself or my colleagues may have been "brought forward" into today's note. My signature on this note, however, is an attestation that I personally performed the exam, history, and/or decision-making noted today, and, unless otherwise indicated, the interactions with patient, family, and staff as well as the review of records all occurred today. I also attest that the listed assessment and stated plan reflect my best clinical judgment today based on the combination of historical information, prior notes, and today's exam/ interactions. When time spent is documented, it refers only to time spent today by the signer, or if indicated, combined time spent today by collaborating physician/nurse practitioner. Lindsay Oro August 07, 2017 14:38
--- NOTE | 2017-08-07 18:11 | HHI.IDPN ---
Subjective Subjective Remarks neurologically the same remains on vent no fever CT w/o abscess C.diff neg vazquez S PSAE in sputum Antibiotics zosyn Lines Line sites with no e.o infection Past Medical History reviewed Allergies: Coded Allergies: No Known Allergies (Verified Allergy, Unknown, 07/20/17) Objective . Vital Signs Date Time Temp Pulse Resp B/P (MAP) Pulse Ox O2 Delivery O2 Flow Rate FiO2 08/07/17 16:00 30 08/07/17 16:00 98.8 87 21 135/67 (89) 98 08/07/17 16:00 87 08/07/17 15:27 97 30 08/07/17 14:27 100 08/07/17 12:37 100 08/07/17 12:00 98.7 85 20 109/61 (77) 99 08/07/17 12:00 30 08/07/17 12:00 85 08/07/17 10:00 84 08/07/17 08:00 76 08/07/17 08:00 99.3 76 21 156/73 (100) 100 08/07/17 08:00 30 08/07/17 07:59 100 30 08/07/17 06:00 76 08/07/17 04:00 82 08/07/17 04:00 30 08/07/17 04:00 98.9 82 20 129/63 (85) 99 08/07/17 03:19 99 30 08/07/17 02:00 68 08/07/17 00:10 100 30 08/07/17 00:00 30 08/07/17 00:00 99.2 78 20 121/66 (84) 100 08/07/17 00:00 78 08/06/17 22:00 78 08/06/17 20:30 99 30 08/06/17 20:00 82 08/06/17 20:00 30 08/06/17 20:00 98.8 82 20 115/60 (78) 100 08/07/17 08/07/17 08/08/17 15:00 23:00 07:00 Intake Total 1391 ml 232 ml Output Total 2100 ml Balance -709 ml 232 ml IV Total 371 ml 182 ml Other 1020 ml 50 ml Output Urine Total 1850 ml Stool Total 250 ml # Voids 3 . Laboratory Tests Test 08/07/17 04:35 White Blood Count 12.1 TH/MM3 Red Blood Count 3.11 MIL/MM3 Hemoglobin 9.6 GM/DL Hematocrit 29.2 % Mean Corpuscular Volume 93.8 FL Mean Corpuscular Hemoglobin 30.9 PG Mean Corpuscular Hemoglobin Concent 33.0 % Red Cell Distribution Width 14.2 % Platelet Count 358 TH/MM3 Mean Platelet Volume 7.8 FL Neutrophils (%) (Auto) 72.5 % Lymphocytes (%) (Auto) 14.8 % Monocytes (%) (Auto) 7.5 % Eosinophils (%) (Auto) 4.2 % Basophils (%) (Auto) 1.0 % Neutrophils # (Auto) 8.8 TH/MM3 Lymphocytes # (Auto) 1.8 TH/MM3 Monocytes # (Auto) 0.9 TH/MM3 Eosinophils # (Auto) 0.5 TH/MM3 Basophils # (Auto) 0.1 TH/MM3 CBC Comment DIFF FINAL Differential Comment Laboratory Tests Test 08/06/17 04:17 08/06/17 17:40 Blood Urea Nitrogen 18 MG/DL Creatinine 0.55 MG/DL Random Glucose 103 MG/DL Calcium Level 8.0 MG/DL Phosphorus Level 2.9 MG/DL Magnesium Level 2.5 MG/DL Sodium Level 147 MEQ/L Potassium Level 3.4 MEQ/L 3.6 MEQ/L Chloride Level 113 MEQ/L Carbon Dioxide Level 26.3 MEQ/L Anion Gap 8 MEQ/L Estimat Glomerular Filtration Rate 149 ML/MIN Microbiology Date/Time Source Procedure Growth Status 08/05/17 15:53 Sputum Endotracheal Gram Stain - Final Resulted 08/05/17 15:53 Sputum Culture - Preliminary Pseudomonas Aeruginosa Resulted Imaging Last Impressions Abdomen/Pelvis CT 08/07/17 1937 Signed Impressions: CONCLUSION: Brain MRI 08/07/17 0000 Signed Impressions: CONCLUSION: Chest X-Ray 08/06/17 0600 Signed Impressions: Service Date/Time: Sunday, August 06, 2017 03:37 - CONCLUSION: 1. No confluent infiltrates or effusions are not identified. 2. The tracheostomy tube remains in place. Buck Henry MD Head CT 08/05/17 0600 Signed Impressions: Service Date/Time: Saturday, August 05, 2017 04:53 - CONCLUSION: 1. Decreasing brain edema and mass effect. Multiple evolving infarcts as above. Previous right frontal ventriculostomy tube placement and occipital craniotomy. Ananda Messina MD Lower Extremity Ultrasound 08/05/17 Signed Impressions: Service Date/Time: Saturday, August 05, 2017 16:06 - CONCLUSION: 1. No sonographic evidence for lower extremity DVT. Sanchez Canada MD Abdomen X-Ray 07/27/17 Signed Impressions: Service Date/Time: Thursday, July 27, 2017 20:37 - CONCLUSION: NG tube coiled in the lower thoracic esophagus. Oumar Bray Jr., MD Head/Brain Mag Res Venography 07/25/17 Signed Impressions: Service Date/Time: Tuesday, July 25, 2017 19:54 - CONCLUSION: Patent dural sinuses. Lonnie Munguia MD Neck Magnetic Resonance Angiography 07/21/17 Signed Impressions: Service Date/Time: Friday, July 21, 2017 08:40 - CONCLUSION: No acute neck arteriovascular abnormality is identified. There is no significant stenosis within either internal carotid artery. Lonnie Ross MD Head Magnetic Resonance Angiography 07/21/17 Signed Impressions: Service Date/Time: Friday, July 21, 2017 08:40 - CONCLUSION: No acute intracranial vascular abnormality is identified. Lonnie Ross MD Abdomen Ultrasound 07/21/17 Signed Impressions: Service Date/Time: Friday, July 21, 2017 15:47 - CONCLUSION: Cholelithiasis. No gallbladder wall thickening or pericholecystic fluid. iVctor Manuel Barros MD Physical Exam CONSTITUTIONAL/GENERAL: This is an obese elderly patient, in no apparent distress. On vent TUBES/LINES/DRAINS: SKIN: No jaundice, rashes, or lesions. Skin temperature appropriate. Not diaphoretic. HEAD: Ventric in place R parietal area with clear CSF EYES: Pupils equal and round and reactive. Extraocular motions intact. No scleral icterus. No injection or drainage. Fundi not examined. ENT: Hearing not tested Nose without bleeding or purulent drainage. Throat without visible erythema, exudates, masses, or lesions. Orally intubated CARDIOVASCULAR: Regular rate and rhythm without murmurs, gallops, or rubs. No JVD. Peripheral pulses symmetric. RESPIRATORY/CHEST: Symmetric, unlabored respirations. Clear to auscultation. Breath sounds equal bilaterally. No wheezes, rales, or rhonchi. GASTROINTESTINAL: Abdomen soft, non-tender, nondistended. GENITOURINARY: Without palpable bladder distension. Garner catheter in place with clear yellow urine. + less prominent scrotum edema MUSCULOSKELETAL: Extremities without clubbing, cyanosis, remains quite edematous. No joint tenderness or effusion noted. No calf tenderness. No mottling or clubbing. NEUROLOGICAL: pt opened eyes to voice; did not follow commands briefly tried eyes contact PSYCHIATRIC: Unable to assess Assessment & Plan Remarks Abnormal CSF - no r/o meningoencephalitis - probably combination of embolic strokes and anoxia t - Acute VDRF ARF 2/2 rhabdo: resolved New fever - resolved Likely PNA: sputum purulent - clx with nl resp olga lidia High grade Staph epi bacteremia Leukocytosis - can be from steroids worse low grade fever anaerobic GNB bacteremia -? GI source ? anaerobe New coag nex staph bacteremia x 2 morphologies: cw contaminant Recs: cont zosyn 4.5 gm dose Continue Vanco IV (target 15-20) x 10 days total fu P clx fu WBC Source for ananerobuic sepsis not established on CT, consider colonoscopy (can be done after d/c) dw Reva Gunn MD August 07, 2017 18:11
[2017-08-08] VITALS (18 sets, daily range): BP systolic 99–149; BP diastolic 53–75; PULSE 72–91; RESP 12–20; TEMP 98.7–99.3; O2SAT 96–100
[2017-08-08] MEDS: hydrALAZINE HCL 50 MG TAB PO SCH ×3 (02:11→18:03)
[2017-08-08] MEDS: PIPERACIL-TAZO 4.5 GM PREMIX 100 ML IV SCH ×4 (02:11→20:25)
[2017-08-08] MEDS: RESP: ALBUTEROL 2.5 MG/IPRATROPIUM 0.5 MG NEB (SCH) NEB ×3 (03:29→15:17)
[2017-08-08] MEDS: CHLORHEXIDINE GLUCONATE 2 % 1 PACK (2 CLOTHS) TOP SCH (04:00)
[2017-08-08] MEDS: VANCOMYCIN INJ 1,500 MG in SODIUM CHLORID 0.9% 500 ML INJ 500 ML IV SCH ×2 (04:32→18:12)
[2017-08-08 05:51] LABS: ALBUMIN 2.2 GM/DL (3.4-5.0); ALT (GPT) 72 U/L (12-78); AST (GOT) 27 U/L (15-37); BICARBONATE 28.8 MEQ/L (21.0-32.0); BLOOD UREA NITROGEN 14 MG/DL (7-18); CALCIUM 8.1 MG/DL (8.5-10.1); CHLORIDE 107 MEQ/L (98-107); CREATININE 0.63 MG/DL (0.60-1.30); GLOMERULAR FILTRATION RATE 128 ML/MIN (>89); GLUCOSE,RANDOM 138 MG/DL (74-106); SODIUM (NA) 143 MEQ/L (136-145)
[2017-08-08 05:54] LABS: ALKALINE PHOSPHATASE 79 U/L (45-117); TOTAL BILIRUBIN ADULT 0.2 MG/DL (0.2-1.0); TOTAL PROTEIN 5.8 GM/DL (6.4-8.2)
[2017-08-08] MEDS: INSULIN ASPART SUPPLEMENTAL SCALE SQ SCH ×3 (06:00→18:00)
[2017-08-08] MEDS: RESP: BUDESONIDE 0.5 MG/2 ML NEB NEB SCH ×2 (07:38→20:47)
[2017-08-08] MEDS: POTASSIUM CHLORIDE 20 MEQ PWD PACKET NG SCH ×2 (08:22→20:26)
[2017-08-08] MEDS: CHLORHEXIDINE 0.12% (ORAL KIT) 15 ML CUP MT SCH ×2 (08:22→20:00)
[2017-08-08] MEDS: SODIUM CHLORIDE 0.9% FLUSH 10 ML FLUSH IV FLUSH SCH ×2 (08:22→20:26)
[2017-08-08] MEDS: FUROSEMIDE 40 MG/4 ML VIAL IV PUSH SCH (08:22)
[2017-08-08] MEDS: DOCUSATE SODIUM 50 MG/SENNA 8.6 MG TAB PO SCH (08:23)
[2017-08-08] MEDS: LANSOPRAZOLE SOLUTAB 30 MG TAB NG SCH (08:23)
[2017-08-08] MEDS: amLODIPine BESYLATE 5 MG TAB PO SCH ×2 (08:23→20:27)
[2017-08-08] MEDS: NYSTATIN SUSP 500,000 U/5 ML CUP SWISH-SWAL SCH ×4 (08:23→20:27)
[2017-08-08] MEDS: LACTOBACILLUS ACIDOPHILUS TAB PO SCH ×3 (08:23→18:03)
[2017-08-08] MEDS: LACTULOSE SYRUP 20 GM/30 ML CUP PO SCH ×2 (08:24→20:26)
[2017-08-08] MEDS: ARTIFICIAL TEARS OPTH SOLN 15 ML BTL EACH EYE SCH ×3 (08:24→18:00)
[2017-08-08] MEDS: LISINOPRIL 10 MG TAB PO SCH (08:24)
[2017-08-08] MEDS: POLYETHYLENE GLYCOL 17 GM PKG PO SCH (08:24)
--- NOTE | 2017-08-08 09:28 | HHI.NSPN ---
History Chief Complaint: multifocal infarct. Interval History 66-year-old obese gentleman who was admitted to [facility] intensive medical unit after presenting to the emergency room 5 days ago found unresponsive at home by . He was intubated and has been on ventilator support since his admission. Workup initially with CT and MRI scan of the brain revealed multifocal areas of infarct involving the bilateral supratentorial hemispheres as well as cerebellar hemispheres consistent with either embolic strokes or anoxia or hypoxia. His toxicology screen was positive for multiple drugs and polysubstance abuse including cocaine, cannabinoids, barbiturates, and opioids. He had a change in his neurologic status with posturing noted today and MRI scan obtained revealed progression of the bilateral cerebellar hemispheres strokes with obstruction of the fourth ventricle and associated hydrocephalus development. Neurosurgery was consulted for the hydrocephalus by the rib builder. 07/26/17: Pt sedated on Diprivan and Fentanyl drips. Not opening eyes. Pupils 3mm bilaterally NR bilaterally. Intubated. Ventriculostomy drain in place lowered to [address] Barrow with orders to increase to 5cmH20 in one hour. 07/30/17: Patient sedated with fentanyl and Diprivan drips. Not opening eyes. Trach in place. He is on CPAP. Ventriculostomy drain in place at 5 cmH20 draining clear CSF. 07/31/17: Pt sedated with Fentanyl and Diprivan. Opening eyes left more than right. Ventriculostomy drain in place at [id number]. ICP 15 draining clear CSF. 08/01/17: Pt on sedative drips Fentanyl and Diprivan. Pupils 4mm bilaterally reactive bilaterally. Ventriculostomy drain at [id number]. ICP 8 currently. Draining clear CSF. 08/02/17: Pt on Fentanyl and Diprivan drip. He opens eyes to deep pain. Pupils 3mm bilaterally reactive bilaterally. Ventric in place at 15cm H20, draining Clear CSF. 08/03/17: Pt on very low dose Fentanyl. He opens his eyes to pain. Pupils 4mm bilaterally reactive bilaterally. Ventriculostomy in place at [id number]. ICP 5. Sticks out tongue slightly to command. Not following in extremities but edematous. 08/06/17: Pt opens eyes to painful stimuli for brief periods of time. He sticks out tongue to command. Not following consistently in extremities. Ventriculostomy drain in place at [id number] and clamped. ICP 5-7 range. 08/07/17: Pt opens eyes to voice. Appears more alert with some tracking. Not following commands for me this morning. Withdraws to pain. 08/07/17: Pt opens eyes and tracks be to either side. He is not following commands. Withdraws extremities to pain. He is opening eyes more spontaneously. System Review Comments Not able to obtain given clinical condition. Exam Results Vital Signs Date Time Temp Pulse Resp B/P (MAP) Pulse Ox O2 Delivery O2 Flow Rate FiO2 08/08/17 07:39 100 30 08/08/17 06:00 72 08/08/17 04:00 99.0 20 100/56 (71) Intake and Output 08/08/17 08/08/17 08/09/17 08:00 16:00 00:00 Intake Total 781 ml Output Total 600 ml Balance 181 ml Physical Examination General: Pt in bed in no acute distress with stable vital signs. Eyes: Pupils equal 4mm bilaterally reactive bilaterally. Sclera anicteric. Resp: Trach in place on PRVC A/C rate 20. Peep 5. FiO2 30%. CTA bilaterally. Heart: NSR no murmurs Abd: Soft positive bs. TFs at 65ml/hr via peg. Skin: No cyanosis or erythema. SCDs in place. Muscle: Not following in extremities for muscle testing. Some flexion in UEs to pain in upper chest. Withdraws extremities to pain. Neuro: Pt opening eyes to voice. Appears to focus on my face he tracks to either side. Not following commands today. Pupils 4mm bilaterally reactive bilaterally. Lab, Micro, Other Results Last Impressions Abdomen/Pelvis CT 08/07/17 1937 Signed Impressions: CONCLUSION: Brain MRI 08/07/17 0000 Signed Impressions: CONCLUSION: Chest X-Ray 08/06/17 0600 Signed Impressions: Service Date/Time: Sunday, August 06, 2017 03:37 - CONCLUSION: 1. No confluent infiltrates or effusions are not identified. 2. The tracheostomy tube remains in place. Buck Henry MD Head CT 08/05/17 0600 Signed Impressions: Service Date/Time: Saturday, August 05, 2017 04:53 - CONCLUSION: 1. Decreasing brain edema and mass effect. Multiple evolving infarcts as above. Previous right frontal ventriculostomy tube placement and occipital craniotomy. Ananda Messina MD Lower Extremity Ultrasound 08/05/17 0000 Signed Impressions: Service Date/Time: Saturday, August 05, 2017 16:06 - CONCLUSION: 1. No sonographic evidence for lower extremity DVT. Sanchez Canada MD Abdomen X-Ray 07/27/17 0000 Signed Impressions: Service Date/Time: Thursday, July 27, 2017 20:37 - CONCLUSION: NG tube coiled in the lower thoracic esophagus. Oumar Bray Jr., MD Head/Brain Mag Res Venography 07/25/17 0000 Signed Impressions: Service Date/Time: Tuesday, July 25, 2017 19:54 - CONCLUSION: Patent dural sinuses. Lonnie Munguia MD Neck Magnetic Resonance Angiography 07/21/17 0000 Signed Impressions: Service Date/Time: Friday, July 21, 2017 08:40 - CONCLUSION: No acute neck arteriovascular abnormality is identified. There is no significant stenosis within either internal carotid artery. Lonnie Ross MD Head Magnetic Resonance Angiography 07/21/17 0000 Signed Impressions: Service Date/Time: Friday, July 21, 2017 08:40 - CONCLUSION: No acute intracranial vascular abnormality is identified. Lonnie Ross MD Abdomen Ultrasound 07/21/17 0000 Signed Impressions: Service Date/Time: Friday, July 21, 2017 15:47 - CONCLUSION: Cholelithiasis. No gallbladder wall thickening or pericholecystic fluid. Victor Manuel Barros MD Laboratory Tests Test 08/08/17 02:59 08/08/17 05:14 Ammonia 32 MCMOL/L Blood Urea Nitrogen 14 MG/DL Creatinine 0.63 MG/DL Random Glucose 138 MG/DL Total Protein 5.8 GM/DL Albumin 2.2 GM/DL Calcium Level 8.1 MG/DL Alkaline Phosphatase 79 U/L Aspartate Amino Transf (AST/SGOT) 27 U/L Alanine Aminotransferase (ALT/SGPT) 72 U/L Total Bilirubin 0.2 MG/DL Sodium Level 143 MEQ/L Potassium Level 3.8 MEQ/L Chloride Level 107 MEQ/L Carbon Dioxide Level 28.8 MEQ/L Anion Gap 7 MEQ/L Estimat Glomerular Filtration Rate 128 ML/MIN Medical Decision Making Impression and Plan A: 66-year-old gentleman with multifocal infarcts involving both hemispheres supratentorially as well as bilateral cerebellar hemispheres with worsening edema and obstructive hydrocephalus. His neurologic examination is very poor. Discussed with over the phone and recommended an emergent ventriculostomy placement to treat the obstructive hydrocephalus. If there is noted improvement subsequently and the option of possible suboccipital craniectomy for decompression could be considered if the family chooses to continue with the aggressive management although this would be a heroic procedure. The at this point consents to ventriculostomy placement and this was witnessed by the nursing staff. Pt underwent a Bilateral suboccipital decompressive craniectomy; expensive dural bovine patch graft; left cerebellar hemisphere brain biopsy on 07/26/17. P: Continue with critical care, weaning vent. Continue with current care. Rehab efforts. Shakir Carroll August 08, 2017 9:28 am
[2017-08-08] MEDS: levETIRAcetam INJ 750 MG in SODIUM CHLORIDE 0.9% INJ 100 ML IV SCH ×2 (10:14→21:14)
--- NOTE | 2017-08-08 11:36 | HHI.CCPN ---
Subjective Remarks/Hospital Course This is a 66-year-old male. Date of admission 07/20/2017. Past medical history includes hypertension, hyperlipidemia, COPD with ongoing tobacco abuse, peptic ulcer disease and anxiety. He also has history of lumbar stenosis, degenerative joint disease of the back and cervical spine. He presents to [facility] with the following history. 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 According to his at bedside, patient is drug tested. Patient returned home from work on Sunday after his 30 day work schedule. Patient was changing the tire of a bike friend yesterday. Patient returned home in no acute distress. Today, patient was tired and was sleeping all day. Initially patient had similar symptoms at lunch. When the attempted to wake him up later this evening patient be was nonresponsive with a weak pulse. She attempted to use ammonia without response. At that time EMS was called and patient was transferred to [facility]. Patient was noted to be an acute change with a creatinine of 3.8. Baseline is normal. Potassium is 7.4 without EKG changes. Patient received bicarbonate, insulin/D50, calcium and Kayexalate in the ED. Repeat potassium 3 hours. Patient is making urine and appears concentrated. UA is pending. Patient leukocytosis 13,000. CPK was 5000. Lactic acid was 2.6. Urine drug screen revealed positive for opiates, amphetamines, benzodiazepines, THC and cocaine. Head CT is currently pending. Due to altered mental status patient was admitted after receiving 20 mg etomidate and 100 mg succinylcholine by ED physician. Patient also received 4 mg of midazolam and after which patient became hypotensive is currently receiving 3 L normal saline wide open. Head CT is currently pending. Patient received clindamycin along with piperacillin/ tazobactam in the ED. 07/21: Overnight the patient required to protamine infusion low-dose currently being weaned off. The patient continues on fentanyl and propofol infusion for ventilator synchrony. Patient's undergoing MRI evaluation results pending. The patient was noted to have significant elevation in creatinine kinase the patient is bolused 1 L IV fluids increase in normal saline 200 cc/hr. Lactic acid downtrending will continue to trend creatinine noted to be decreasing. 07/22: Currently afebrile. Off all vasopressors. We will switch to LR at 200 cc an hour. Recheck BMP this afternoon. Moving all 4 x-rays spontaneously right upper extremity less. Opens eyes but not following commands. Positive gag and corneal reflex. 07/23: Currently on dexmedetomidine drip at 0.7 mg/kg/h. Minimal response to distinguish. Will hold at the present time and reassess neurological condition. EEG showed no epileptiform activity. Tolerating tube feeding. No bowel movement since admission. Currently afebrile. 07/24: Per nursing staff patient was off sedation over the night and he woke up and followed some simple commands, but due to agitation, hypertension and tachycardia patient was restarted on sedation. He is currently on Precedex at 1 , tolerating CPAP, sedated. T-max of 99. I/O 3029/1451. 07/25: No events over the night. This morning while attempting CPAP trial patient became rigid, unresponsive, with gaze deviation, tachypneic tachycardic and hypertensive, suggesting seizure activity. Patient was immediately given Ativan 2 mg 1 with resolution of episode. Neurology was contacted and plan for EEG and CT head as well as propofol infusion. No family present at bedside. T-max of 100.7 over the night. Urine output 2300 mL's over the last 24 hours. 07/26: EVD placed yesterday for declining mental status with hydrocephalus and severe cerebellar edema. this AM, extensor posturing. supratentorial ICPs controlled, but cerebellar edema persists. discussed with Dr. Castillo: csf could be consistent with encephalitis. d/w Dr. Barrow: will need posterior fossa decompression. 07/27: no improvements in mental status. s/p suboccipital crani yesterday. remains intermittently on cardene and levophed to maintain cpp. ICP controlled. brain biopsies pending. 07/28: Osmolality suitably concentrated. ICP well controlled. Maintaining head up position. On attempted CPAP trial patient has 25 second periods of apnea. Unstable neurological status we will not stress him with extended spontaneous breathing trials. 07/29: Requiring Cardene still to maintain systolic blood pressure less than 160. Markedly edematous and will need to start active diuresis. No change in neurologic function. Apnea episodes persist. 07/30: off cardene. still grossly volume overloaded. neuro exam remains poor. 07/31: no improvement in mental status. wbc slight uptrend. afebrile. awaiting MRI for prognostication and to re-evaluate edema. adequate diuresis yesterday. 08/01: encephalopathy persists. wbc uptrending but afebrile. unable to obtain MRI due to elevated ICP, cannot tolerate lying flat. would benefit from MRI when able. diuresing well. 08/02: low grade fevers persist. wbc still high. on empiric abx. ventric has been in x 7 days: with fever and poor neurologic exam, will send CSF for cell count and culture. no change in mental status. 08/03: CSF cultures pending. no change in neuro exam. wbc still high and uptrending. challenging drain, currently at [id number] 08/04: Afebrile. Positive gag and cough. Ventricular drain currently at 20 cm H2O. Afebrile. PEG tube placed today. Subjective: 08/05: Afebrile. CT brain today revealed decreased brain edema. Multiple infarcts including posterior fossa, basal ganglia, left occipital and temporal regions. T-max 100.1. WBCs continue to be elevated.. Blood cultures growing gram-negative rods currently. 08/06: Tolerating CPAP spontaneous breathing trials but requires elevated pressure support in the range of 15-18. Excessive oral secretions will start Levsin. Moves feet spontaneously. 08/07: Moves feet spontaneously. Fails SBTs. For MRI today for re-evaluation. 08/08: Will need wound care consult for groin breakdown. No change in neurological status. Objective Vital Signs Date Time Temp Pulse Resp B/P (MAP) Pulse Ox O2 Delivery O2 Flow Rate FiO2 08/08/17 08:00 30 08/08/17 07:39 100 08/08/17 06:00 72 08/08/17 04:00 99.0 20 100/56 (71) Intake and Output 08/08/17 08/08/17 08/09/17 08:00 16:00 00:00 Intake Total 781 ml 207.5 ml Output Total 600 ml Balance 181 ml 207.5 ml Result Diagram: 08/07/17 0435 08/08/17 0514 Other Results Microbiology Date/Time Source Procedure Growth Status 08/05/17 15:53 Sputum Endotracheal Gram Stain - Final Complete 08/05/17 15:53 Sputum Culture - Final Pseudomonas Aeruginosa Complete Imaging Last Impressions Head CT 5/20/18 0600 Signed Impressions: Service Date/Time: Saturday, August 05, 2017 04:53 - CONCLUSION: 1. Decreasing brain edema and mass effect. Multiple evolving infarcts as above. Previous right frontal ventriculostomy tube placement and occipital craniotomy. Ananda Messina MD Chest X-Ray 08/05/17599 Signed Impressions: Service Date/Time: Saturday, August 05, 2017 03:25 - CONCLUSION: 1. Improved basilar airspace disease since August 02. Ananda Messina MD Abdomen X-Ray 07/27/17 Signed Impressions: Service Date/Time: Thursday, July 27, 2017 20:37 - CONCLUSION: NG tube coiled in the lower thoracic esophagus. Oumar Bray Jr., MD Head/Brain Mag Res Venography 07/25/17 Signed Impressions: Service Date/Time: Tuesday, July 25, 2017 19:54 - CONCLUSION: Patent dural sinuses. Lonnie Munguia MD Brain MRI 07/25/17 Signed Impressions: Service Date/Time: Tuesday, July 25, 2017 10:37 - CONCLUSION: Worsening brain appearance with developing hydrocephalus which is presumably related to increasing edema in the posterior fossa. See above discussion. Lonnie Lock MD Neck Magnetic Resonance Angiography 07/21/17 Signed Impressions: Service Date/Time: Friday, July 21, 2017 08:40 - CONCLUSION: No acute neck arteriovascular abnormality is identified. There is no significant stenosis within either internal carotid artery. Lonnie Ross MD Head Magnetic Resonance Angiography 07/21/17 Signed Impressions: Service Date/Time: Friday, July 21, 2017 08:40 - CONCLUSION: No acute intracranial vascular abnormality is identified. Lonnie Ross MD Abdomen Ultrasound 07/21/17 Signed Impressions: Service Date/Time: Friday, July 21, 2017 15:47 - CONCLUSION: Cholelithiasis. No gallbladder wall thickening or pericholecystic fluid. Victor Manuel Barros MD Procedures Right hole ventriculostomy Objective Remarks General -66-year-old male currently resting in bed HEENT - Pupils equal, reactive, sclerae anicteric, neck supple, no nuchal rigidity. Tracheostomy site is clean dry and intact CV - Normal rate, regular rhythm. sinus. no JVD Chest - Equal chest rise. Few scattered rhonchi. Abdomen - Soft, non-tender, non-distended, no guarding. PEG tube in left side is clean dry and intact Skin - No rashes, no cyanosis, multiple tattoos bilateral upper extremities and thorax Extremities - Warm and well perfused, no edema, + peripheral PT pulses, no clubbing Neuro - Off all sedation, minimally responsive, pupils equal and reactive, moves one arm only. Moves lower extremities spontaneously. 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 Castillo following neurosurgery: Dr. Barrow following. Currently levetiracetam 750 mg IV every [address] brain decrease brain edema. Right ventriculostomy. Evolving infarcts the posterior fossa, base again, temporal and left occipital region. Decreased mass-effect on posterior fossa/fourth and lateral ventricle CT brain 07/27 - Decrease in ventricular size since July 25. Extensive low attenuation and swelling in both occipital lobes and also in the periventricular region, basal ganglia and focally in the right occipital lobe. Differential diagnosis includes edema or evolving infarcts. There is mass effect on the brainstem and posterior fossa with effacement of the fourth ventricle. CT brain 07/21 There is patchy mild diminished attenuation in centrum semi-ovale bilaterally. There is mild heterogeneous diminished density in the genu region of internal capsules and globus pallidus bilaterally. There is vague diminished density in the cerebellar hemispheres bilaterally. There is no evidence of intracranial mass or hemorrhage. There is no abnormal extra-axial fluid accumulation or shift present. 07/21 MRI brain-Multifocal areas of restricted diffusion/recent ischemia within the centrum semiovale bilaterally, bilateral occipital lobes, bilateral basal ganglia, bilateral temporal lobes, and bilateral cerebellar hemispheres. Findings could be related to global anoxic event or less likely embolic phenomenon. 07/21 EEG revealed no epileptic activity 07/21-MRA brain/neck -no acute findings UDS + opiates, amphetamines, benzodiazepines, THC and cocaine CSF studies all negative cytology and bacterial infection brain biopsies of the cerebellum revealed there is necrosis and loss of neurons of the Purkinje cell layer EVD placed 07/25 by Pushpa. Currently -20 cm H2O. 0 cc past 24 hours documented. 11 cc prior CV: History of essential hypertension Hyperlipidemia Lactic acidosis -resolved Sinus bradycardia- secondary to elevated ICP- resolved Holding valsartan 320 mg p.o. daily due to hypotension/acute kidney injury Holding rosuvastatin 10 mg p.o. q. Sunday/Sunday/Sunday due to elevated LFTs. Resume when clinically indicated. amlodipine 5mg po twice daily and hydralazine 100 mg 3 times daily for hypertension TTE results reviewed, LV size normal, EF of 55%. AKILAH cleared for cardiology Resp: Acute hypoxemic and hypercarbic respiratory failure Tobacco use disorder Continue PRVC ventilation Ventilator bundle Albuterol/ipratropium aerosols every 6 hours with albuterol aerosol every 2 hours as needed dyspnea budesonide 0.5/2 1 inhalation twice daily since on budesonide/formoterol 160/ 4.5 1 puff twice daily at home along with albuterol inhaler twice daily no weaning of mechanical ventilation until mental status and ICP improves wean fio2 for goal spo2 > 90% hob elevated Tracheostomy 07/28. GI: Elevated transaminases -slowly trending down Rhabdomyolysis -improving, urine output is adequate, CPK trending down Cholelithiasis Elevated ammonia 07/21 Liver ultrasound revealed cholelithiasis Hepatitis panel-negative Tube feeding with Jevity 1.5 goal 65 cc are recommended and will resume Famotidine 20 mg twice daily for GI prophylaxis Docusate/senna 1 tablet daily for bowel regimen with polyethylene glycol 17 g daily and lactulose 30 cc twice daily Placement of gastric tube/percutaneous endoscopic by Dr. Rooney 08/04 Renal/: Acute kidney injury d/c adler 08/03 continue forced diuresis currently on furosemide 20 mg IV twice daily since . Decrease to daily today 08/05 Renal ultrasound revealed no hydronephrosis bilaterally 07/21 Urine eosinophils negative. Avoid nephrotoxic drugs Endo: Sliding scale insulin with NovoLog with Accu-Cheks every 6 hours to maintain euglycemia/low regimen Hemoglobin A1c documented at 6.1 Heme: Normocytic anemia Leukocytosis Monitor CBC daily. Follow trend hold SQH ID: Staph epi/coag negative staph bacteremia Received piperacillin/tazobactam and clindamycin ED for possible aspiration ID involved and following. Previously on ceftriaxone for staph in 2/2 bottles blood cultures. Vancomycin, cefepime current regimen Pertinent cultures 08/01 -blood cultures -coag negative staph and gram-negative edgardo 07/28 -blood cultures staph epi 07/27 -blood cultures -staph epi- Blood cultures 2, UA, sputum 07/21 all pending/no growth to date Strep pneumo, Legionella urine antigens- 08/02 - CSF cultures pending, currently NGTD. 08/05 - pansensitive Pseudomonas sputum FEN: Hypernatremia Hypokalemia -acute Hypophosphatemia -resolved Electrolyte protocol Scheduled potassium chloride 20 mEq twice daily while on furosemide MSK: History of multiple lumbar/cervical spine surgeries PT evaluate and treat Access adler: will d/c 08/02. Currently with condom catheter 07/25 EVD Prophylaxis -GI -lansoprazole -DVT -SCD/ Heparin SQ held. Resume when okay with neurosurgery Overall impression: Severe neurologic deficit persists and appears to be permanent likely. Not tolerating ventilator spontaneous breathing trials and we are unable to wean from the ventilator yet. MRI with less edema posterior fossa contents and cerebrum. Manuel Rose MD August 08, 2017 11:36
--- NOTE | 2017-08-08 13:19 | PD.WCN.NOT ---
Wound Consult Description: Received consult for pressure ulcer to groin/ penis from Doctor Milton Communicated with: RN Anais nicolas and Doctor Milton Recommendation: 1.Please cleanse wound to penis with normal saline only and pat dry. Apply Santyl ointment alta thickness to open wound on penis only and cover with moistened to 2x2 gauze just on wound bed. Cover with dry 4x4 gauze. Change dressing daily. May change gauze dressing as needed for saturation or dislodgement. 2. Cleanse unroofed bulla to L upper inner thigh with normal saline and pat dry. Apply oil emulsion gauze just over wound bed and cover with dry cover dressing. Change dressing every other day or as needed for saturation or dislodgement. Additional Information: Patient seen on [address] [place] [address] for evaluation of pressure ulcer to groin/ penis area around 1200. Patient seen with THEODORE Manzo [facility], Patient is noted with wound to L side of the penis. Wound measures 3cm x 2cm x slough. Wound drainage is minimal and yellow/ serous.Wound bed is noted with 95% yellow moist slough and ~ 5% pink tissue. Wound does not have foul odor. Penis is edematous and misshaped. Per patient's family member, patient had a Garner catheter in and penis became irritated and edematous. Garner Catheter was removed and Condom catheter was placed at some point. Nurse noticed some bleeding under condom catheter, and wound was noted. L upper inner thigh wound presents as a unroofed bulla measuring 2cm x 1.9cm x ~ 0.1cm. Wound is 100% pink and dry. Wound was left open to air. RN will apply dressings as recommended above when supplies obtained. Salma Farah [facility] August 08, 2017 13:19
--- NOTE | 2017-08-08 15:09 | PD.CARD.PN ---
Subjective Subjective Remarks trached, on iv fentanyl, does not respond to sternal rub Objective Medications Current Medications Medications (Trade) Dose Ordered Sig/Claudia Route Start Time Stop Time Status Last Admin (NS Flush) 2 ml UNSCH PRN IV FLUSH 07/21/17 00:00 (NS Flush) 2 ml BID IV FLUSH 07/21/17 09:00 08/08/17 08:22 (Tears Naturale Opth Soln) 1 drop TID EACH EYE 07/21/17 09:00 08/08/17 13:51 (Albuterol Neb) 2.5 mg Q2HR NEB PRN INH 07/21/17 00:00 08/03/17 08:20 ([facility] [place] Nursing Information) 1 Q361D XX 07/21/17 00:00 07/21/17 00:00 (Chlorhexidine 2% Cloth) Taper DAILY@04 TOP 07/21/17 04:00 07/17/18 03:59 08/08/17 04:00 (Chlorhexidine 2% Cloth) 3 pack UNSCH PRN TOP 07/21/17 00:00 (Milk Of Magnesia Liq) 30 ml Q12H PRN PO 07/21/17 00:00 (Senokot) 17.2 mg Q12H PRN PO 07/21/17 00:00 (Dulcolax Supp) 10 mg DAILY PRN RECTAL 07/21/17 00:00 (Lactulose Liq) 30 ml DAILY PRN PO 07/21/17 00:00 (Peridex 0.12% Liq) 15 ml BID@08,20 MT 07/21/17 08:00 08/08/17 08:22 (D50w (Vial) Inj) 50 ml UNSCH PRN IV PUSH 07/21/17 00:00 (Glucagon Inj) 1 mg UNSCH PRN OTHER 07/21/17 00:00 (NovoLOG SUPPLEMENTAL SCALE) 1 Q6HR SQ 07/21/17 00:00 07/30/17 17:49 (Pulmicort Respule Neb) 0.5 mg Q12HR NEB NEB 07/21/17 08:00 08/08/17 07:38 (Brethine Inj) 1 mg UNSCH PRN SQ 07/21/17 00:30 (Apresoline Inj) 10 mg Q1H PRN IV PUSH 07/22/17 09:45 07/24/17 19:51 (Nitroglycerin 2% Oint) 2 inch Q6H PRN TOPICAL 07/22/17 09:45 Levetriacetam 750 mg/Sodium Chloride 107.5 ml @ 420 mls/hr Q12H IV 07/25/17 10:00 08/08/17 10:14 (Brethine Inj) 1 mg UNSCH PRN SQ 07/26/17 09:45 Propofol 100 ml @ 3.102 mls/ hr TITRATE PRN IV 07/26/17 11:00 08/02/17 06:43 Fentanyl Citrate 250 ml @ 5 mls/hr TITRATE PRN IV 07/26/17 11:00 08/04/17 21:26 (Lactinex) 1 tab TID PO 07/28/17 18:00 08/08/17 13:50 (Norvasc) 5 mg BID PO 07/29/17 09:00 08/08/17 08:23 (Prinivil) 10 mg DAILY PO 07/29/17 09:00 08/08/17 08:24 (Apresoline) 50 mg Q8H PRN PO 07/30/17 09:15 Pharmacy Profile Note 0 ml @ 0 mls/hr UNSCH OTHER 07/30/17 13:00 (Apresoline) 100 mg Q8H PO 07/30/17 18:00 08/08/17 10:14 ([facility] [place] Nursing Information) D/C ICU ELECTROLYTE ORDERS... UNSCH PRN .XX 08/01/17 08:30 ([facility] [place] Nursing Information) ICU - CALL ORDERING PHYSIC... UNSCH PRN .XX 08/01/17 08:30 Potassium Chloride 100 ml @ 25 mls/hr UNSCH PRN IV 08/01/17 08:30 (K-Lyte Cl Eff) 50 meq UNSCH PRN PO 08/01/17 08:30 Potassium Chloride 100 ml @ 50 mls/hr UNSCH PRN IV 08/01/17 08:30 08/06/17 12:01 Magnesium Sulfate 4 gm/Sodium Chloride 108 ml @ 54 mls/hr UNSCH PRN IV 08/01/17 08:30 Magnesium Sulfate 2 gm/Sodium Chloride 104 ml @ 52 mls/hr UNSCH PRN IV 08/01/17 08:30 (Mag-Ox) 800 mg UNSCH PRN PO 08/01/17 08:30 Sodium Phosphate 30 mmol/Sodium Chloride 260 ml @ 43.333 mls/ hr UNSCH PRN IV 08/01/17 08:30 (K-Phos) 2,000 mg UNSCH PRN PO 08/01/17 08:30 Potassium Phosphate 30 mmol/ Sodium Chloride 260 ml @ 43.333 mls/ hr UNSCH PRN IV 08/01/17 08:30 Vancomycin HCl 1500 mg/Sodium Chloride 515 ml @ 250 mls/hr Q12H IV 08/03/17 17:00 08/08/17 04:32 (Mycostatin Liq) 5 ml QID SWISH-SWAL 08/03/17 18:00 08/08/17 13:50 (KCl Powder) 20 meq Q12HR NG 08/04/17 21:00 08/08/17 08:22 (Duoneb Neb) 1 ampule Q6HR NEB NEB 08/04/17 16:00 08/08/17 07:38 (Lasix Inj) 20 mg DAILY IV PUSH 08/06/17 09:00 08/08/17 08:22 (Prevacid Odt) 30 mg DAILY NG 08/06/17 09:00 08/08/17 08:23 (Dilia-Colace) 1 tab DAILY PO 08/06/17 09:00 08/08/17 08:23 (Lactulose Liq) 30 ml BID PO 08/05/17 21:00 08/07/17 20:54 (Miralax) 17 gm DAILY PO 08/06/17 09:00 08/08/17 08:24 (Zofran Odt) 4 mg Q6H PRN .XX 08/05/17 23:15 Piperacillin Sod/ Tazobactam Sod 100 ml @ 200 mls/hr Q6H IV 08/06/17 20:00 08/08/17 13:51 ([facility] [place] Pharmacy Ordered Lab Info) SPECIFIC LAB TO BE DRAWN:VANCO TROUGH DATE TO BE DRTy. ONCE ONCE .XX 08/08/17 16:45 08/08/17 16:46 Vital Signs / I&O Vital Signs Date Time Temp Pulse Resp B/P (MAP) Pulse Ox O2 Delivery O2 Flow Rate FiO2 08/08/17 13:02 98 30 08/08/17 13:02 30 08/08/17 12:00 30 08/08/17 12:00 80 08/08/17 12:00 99.0 83 20 123/69 (87) 98 08/08/17 10:00 74 08/08/17 08:00 82 08/08/17 08:00 30 08/08/17 08:00 99.3 86 20 136/65 (88) 98 08/08/17 07:39 100 30 08/08/17 06:00 72 08/08/17 04:00 99.0 91 20 100/56 (71) 100 08/08/17 04:00 91 08/08/17 04:00 30 08/08/17 03:28 100 30 08/08/17 02:00 82 08/08/17 00:00 99.2 84 20 149/75 (99) 99 08/08/17 00:00 84 08/08/17 00:00 30 08/07/17 23:25 97 30 08/07/17 22:00 72 08/07/17 20:00 99.2 72 20 130/62 (84) 99 08/07/17 20:00 72 08/07/17 20:00 30 08/07/17 19:38 100 30 08/07/17 18:00 85 08/07/17 16:00 30 08/07/17 16:00 98.8 87 21 135/67 (89) 98 08/07/17 16:00 87 08/07/17 15:27 97 30 I/O 08/07/17 08/07/17 08/07/17 08/08/17 08/08/17 08/08/17 07:00 15:00 23:00 07:00 15:00 23:00 Intake Total 591 ml 1391 ml 797 ml 781 ml 207.5 ml Output Total 1525 ml 2100 ml 600 ml Balance -934 ml -709 ml 797 ml 181 ml 207.5 ml IV Total 371 ml 697 ml 207.5 ml Tube Feeding 591 ml 50 ml 691 ml Other 0 ml 1020 ml 50 ml 90 ml Output Urine Total 925 ml 1850 ml Stool Total 600 ml 250 ml 600 ml # Voids 3 6 Physical Exam GENERAL: SKIN: Warm and dry. HEAD: Normocephalic. EYES: No scleral icterus. No injection or drainage. NECK: Supple, trachea midline. No JVD or lymphadenopathy. CARDIOVASCULAR: Regular rate and rhythm without murmurs, gallops, or rubs. RESPIRATORY: Breath sounds equal bilaterally. No accessory muscle use. GASTROINTESTINAL: Abdomen soft, non-tender, nondistended. MUSCULOSKELETAL: No cyanosis, or edema. BACK: Nontender without obvious deformity. No CVA tenderness. Laboratory Laboratory Tests Test 08/08/17 02:59 08/08/17 05:14 Ammonia 32 MCMOL/L Blood Urea Nitrogen 14 MG/DL Creatinine 0.63 MG/DL Random Glucose 138 MG/DL Total Protein 5.8 GM/DL Albumin 2.2 GM/DL Calcium Level 8.1 MG/DL Alkaline Phosphatase 79 U/L Aspartate Amino Transf (AST/SGOT) 27 U/L Alanine Aminotransferase (ALT/SGPT) 72 U/L Total Bilirubin 0.2 MG/DL Sodium Level 143 MEQ/L Potassium Level 3.8 MEQ/L Chloride Level 107 MEQ/L Carbon Dioxide Level 28.8 MEQ/L Anion Gap 7 MEQ/L Estimat Glomerular Filtration Rate 128 ML/MIN Imaging Last 24 hours Impressions Abdomen/Pelvis CT 08/07/171936 Signed Impressions: CONCLUSION: Assessment and Plan Problem List: (1) Toxic metabolic encephalopathy ICD Codes: G92 - Toxic encephalopathy (2) Tetrahydrocannabinol (THC) use disorder, mild, abuse ICD Codes: F12.10 - Cannabis abuse, uncomplicated (3) Encephalopathy ICD Codes: G93.40 - Encephalopathy, unspecified (4) Stroke ICD Codes: I63.9 - Cerebral infarction, unspecified (5) Chronic, continuous use of opioids ICD Codes: F11.90 - Opioid use, unspecified, uncomplicated (6) Cocaine use ICD Codes: F14.90 - Cocaine use, unspecified, uncomplicated Assessment and Plan 1.) Cleared by neurosurgery for SWAPNIL, not sure if findings will change management facilitator as neurologic prognosis appears poor, d/w ID 08/04/17; SWAPNIL not currently indicated, d/w nurse at bedside 08/06/17; consider swapnil if still indicated from ID standpoint and patient has meaningful neurologic recovery; , no significant neurologic improvement Navid Corrales MD August 08, 2017 15:09
[2017-08-08] MEDS ORDERED: PHARMACY ORDERED LAB ONE (16:45)
[2017-08-08] MEDS ORDERED: HYOSCYAMINE SOLN 0.125 MG/ML 15 ML BTL PO ONE (17:15)
[2017-08-08] MEDS: COLLAGENASE OINT 30 GM TUBE TOPICAL SCH (18:11)
[2017-08-09] VITALS (8 sets, daily range): BP systolic 108–126; BP diastolic 62–63; PULSE 70–82; RESP 18; TEMP 98.6–98.8; O2SAT 95–100
[2017-08-09] MEDS: fentaNYL DRIP 250 ML IV PRN
[2017-08-09] MEDS: hydrALAZINE HCL 50 MG TAB PO SCH ×2 (01:20→09:37)
[2017-08-09] MEDS: PIPERACIL-TAZO 4.5 GM PREMIX 100 ML IV SCH ×3 (01:20→15:09)
[2017-08-09 03:56] LABS: AUTOMATED NEUTROPHIL # 11.2 TH/MM3 (1.8-7.7); BASOPHIL # 0.1 TH/MM3 (0-0.2); BASOPHIL % 0.6 % (0.0-2.0); EOSINOPHIL # 0.4 TH/MM3 (0-0.4); EOSINOPHIL % 3.1 % (0.0-4.0); HEMATOCRIT 27.3 % (39.0-51.0); HEMOGLOBIN 9.1 GM/DL (13.0-17.0); LYMPHOCYTE # 1.5 TH/MM3 (1.0-4.8); MEAN CELL VOLUME 92.7 FL (80.0-100.0); MEAN CORPUSCULAR HEMOGLOBIN 30.8 PG (27.0-34.0); MEAN CORPUSCULAR HGB CONC 33.2 % (32.0-36.0); MEAN PLATELET VOLUME 8.2 FL (7.0-11.0); MONO % 4.5 % (0.0-8.0); MONOCYTE # 0.6 TH/MM3 (0-0.9); NEUT % 80.8 % (16.0-70.0); PLATELET COUNT 400 TH/MM3 (150-450); RED BLOOD COUNT 2.95 MIL/MM3 (4.50-5.90); RED CELL DISTRIBUTION WIDTH 13.9 % (11.6-17.2); WHITE BLOOD COUNT 13.8 TH/MM3 (4.0-11.0)
[2017-08-09] MEDS: CHLORHEXIDINE GLUCONATE 2 % 1 PACK (2 CLOTHS) TOP SCH (04:00)
[2017-08-09 04:28] LABS: BICARBONATE 29.5 MEQ/L (21.0-32.0); CALCIUM 8.1 MG/DL (8.5-10.1); CREATININE 0.63 MG/DL (0.60-1.30)
[2017-08-09] MEDS ORDERED: VANCOMYCIN INJ 1,750 MG in SODIUM CHLORID 0.9% 500 ML INJ 500 ML IV SCH (05:00)
[2017-08-09] MEDS: INSULIN ASPART SUPPLEMENTAL SCALE SQ SCH ×3 (06:00→12:00)
[2017-08-09 07:11] LABS: BANDS 1 % (0-6); LYMPHOCYTES 17 % (9-44); MONOCYTES 5 % (0-8); NEUTROPHIL # MANUAL DIFF 10.2 TH/MM3 (1.8-7.7); POLYS (SEG NEUTROPHILS) 73 % (16-70)
[2017-08-09] MEDS: CHLORHEXIDINE 0.12% (ORAL KIT) 15 ML CUP MT SCH (08:00)
--- NOTE | 2017-08-09 08:16 | HHI.CCPN ---
Subjective Remarks/Hospital Course This is a 66-year-old male. Date of admission 07/20/2017. Past medical history includes hypertension, hyperlipidemia, COPD with ongoing tobacco abuse, peptic ulcer disease and anxiety. He also has history of lumbar stenosis, degenerative joint disease of the back and cervical spine. He presents to [facility] with the following history. 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 According to his at bedside, patient is drug tested. Patient returned home from work on Sunday after his 30 day work schedule. Patient was changing the tire of a bike friend yesterday. Patient returned home in no acute distress. Today, patient was tired and was sleeping all day. Initially patient had similar symptoms at lunch. When the attempted to wake him up later this evening patient be was nonresponsive with a weak pulse. She attempted to use ammonia without response. At that time EMS was called and patient was transferred to [facility]. Patient was noted to be an acute change with a creatinine of 3.8. Baseline is normal. Potassium is 7.4 without EKG changes. Patient received bicarbonate, insulin/D50, calcium and Kayexalate in the ED. Repeat potassium 3 hours. Patient is making urine and appears concentrated. UA is pending. Patient leukocytosis 13,000. CPK was 5000. Lactic acid was 2.6. Urine drug screen revealed positive for opiates, amphetamines, benzodiazepines, THC and cocaine. Head CT is currently pending. Due to altered mental status patient was admitted after receiving 20 mg etomidate and 100 mg succinylcholine by ED physician. Patient also received 4 mg of midazolam and after which patient became hypotensive is currently receiving 3 L normal saline wide open. Head CT is currently pending. Patient received clindamycin along with piperacillin/ tazobactam in the ED. 07/21: Overnight the patient required to protamine infusion low-dose currently being weaned off. The patient continues on fentanyl and propofol infusion for ventilator synchrony. Patient's undergoing MRI evaluation results pending. The patient was noted to have significant elevation in creatinine kinase the patient is bolused 1 L IV fluids increase in normal saline 200 cc/hr. Lactic acid downtrending will continue to trend creatinine noted to be decreasing. 07/22: Currently afebrile. Off all vasopressors. We will switch to LR at 200 cc an hour. Recheck BMP this afternoon. Moving all 4 x-rays spontaneously right upper extremity less. Opens eyes but not following commands. Positive gag and corneal reflex. 07/23: Currently on dexmedetomidine drip at 0.7 mg/kg/h. Minimal response to distinguish. Will hold at the present time and reassess neurological condition. EEG showed no epileptiform activity. Tolerating tube feeding. No bowel movement since admission. Currently afebrile. 07/24: Per nursing staff patient was off sedation over the night and he woke up and followed some simple commands, but due to agitation, hypertension and tachycardia patient was restarted on sedation. He is currently on Precedex at 1 , tolerating CPAP, sedated. T-max of 99. I/O 3029/1451. 07/25: No events over the night. This morning while attempting CPAP trial patient became rigid, unresponsive, with gaze deviation, tachypneic tachycardic and hypertensive, suggesting seizure activity. Patient was immediately given Ativan 2 mg 1 with resolution of episode. Neurology was contacted and plan for EEG and CT head as well as propofol infusion. No family present at bedside. T-max of 100.7 over the night. Urine output 2300 mL's over the last 24 hours. 07/26: EVD placed yesterday for declining mental status with hydrocephalus and severe cerebellar edema. this AM, extensor posturing. supratentorial ICPs controlled, but cerebellar edema persists. discussed with Dr. Castillo: csf could be consistent with encephalitis. d/w Dr. Barrow: will need posterior fossa decompression. 07/27: no improvements in mental status. s/p suboccipital crani yesterday. remains intermittently on cardene and levophed to maintain cpp. ICP controlled. brain biopsies pending. 07/28: Osmolality suitably concentrated. ICP well controlled. Maintaining head up position. On attempted CPAP trial patient has 25 second periods of apnea. Unstable neurological status we will not stress him with extended spontaneous breathing trials. 07/29: Requiring Cardene still to maintain systolic blood pressure less than 160. Markedly edematous and will need to start active diuresis. No change in neurologic function. Apnea episodes persist. 07/30: off cardene. still grossly volume overloaded. neuro exam remains poor. 07/31: no improvement in mental status. wbc slight uptrend. afebrile. awaiting MRI for prognostication and to re-evaluate edema. adequate diuresis yesterday. 08/01: encephalopathy persists. wbc uptrending but afebrile. unable to obtain MRI due to elevated ICP, cannot tolerate lying flat. would benefit from MRI when able. diuresing well. 08/02: low grade fevers persist. wbc still high. on empiric abx. ventric has been in x 7 days: with fever and poor neurologic exam, will send CSF for cell count and culture. no change in mental status. 08/03: CSF cultures pending. no change in neuro exam. wbc still high and uptrending. challenging drain, currently at [id number] 08/04: Afebrile. Positive gag and cough. Ventricular drain currently at 20 cm H2O. Afebrile. PEG tube placed today. Subjective: 08/05: Afebrile. CT brain today revealed decreased brain edema. Multiple infarcts including posterior fossa, basal ganglia, left occipital and temporal regions. T-max 100.1. WBCs continue to be elevated.. Blood cultures growing gram-negative rods currently. 08/06: Tolerating CPAP spontaneous breathing trials but requires elevated pressure support in the range of 15-18. Excessive oral secretions will start Levsin. Moves feet spontaneously. 08/07: Moves feet spontaneously. Fails SBTs. For MRI today for re-evaluation. 08/08: Will need wound care consult for groin breakdown. No change in neurological status. 08/09: No improvement in neurologic function overnight. Blood pressure control acceptable. Tolerate spontaneous breathing trial but persistent respiratory rate remains at 8-9. Objective Vital Signs Date Time Temp Pulse Resp B/P (MAP) Pulse Ox O2 Delivery O2 Flow Rate FiO2 08/09/17 06:00 81 08/09/17 04:26 98 30 08/09/17 04:00 98.6 18 126/63 (84) Intake and Output 08/09/17 08/09/17 08/10/17 08:00 16:00 00:00 Intake Total 1002 ml Balance 1002 ml Result Diagram: 08/09/17 0343 08/09/17 0343 Imaging Last Impressions Head CT 08/05/17 0600 Signed Impressions: Service Date/Time: Saturday, August 05, 2017 04:53 - CONCLUSION: 1. Decreasing brain edema and mass effect. Multiple evolving infarcts as above. Previous right frontal ventriculostomy tube placement and occipital craniotomy. Ananda Messina MD Chest X-Ray 08/05/17 0600 Signed Impressions: Service Date/Time: Saturday, August 05, 2017 03:25 - CONCLUSION: 1. Improved basilar airspace disease since August 02. Ananda Messina MD Abdomen X-Ray 07/27/17 0000 Signed Impressions: Service Date/Time: Thursday, July 27, 2017 20:37 - CONCLUSION: NG tube coiled in the lower thoracic esophagus. Oumar Bray Jr., MD Head/Brain Mag Res Venography 07/25/17 0000 Signed Impressions: Service Date/Time: Tuesday, July 25, 2017 19:54 - CONCLUSION: Patent dural sinuses. Lonnie Munguia MD Brain MRI 07/25/17 0000 Signed Impressions: Service Date/Time: Tuesday, July 25, 2017 10:37 - CONCLUSION: Worsening brain appearance with developing hydrocephalus which is presumably related to increasing edema in the posterior fossa. See above discussion. Lonnie Lock MD Neck Magnetic Resonance Angiography 07/21/17 0000 Signed Impressions: Service Date/Time: Friday, July 21, 2017 08:40 - CONCLUSION: No acute neck arteriovascular abnormality is identified. There is no significant stenosis within either internal carotid artery. Lonnie Ross MD Head Magnetic Resonance Angiography 07/21/17 0000 Signed Impressions: Service Date/Time: Friday, July 21, 2017 08:40 - CONCLUSION: No acute intracranial vascular abnormality is identified. Lonnie Ross MD Abdomen Ultrasound 07/21/17 0000 Signed Impressions: Service Date/Time: Friday, July 21, 2017 15:47 - CONCLUSION: Cholelithiasis. No gallbladder wall thickening or pericholecystic fluid. Victor Manuel Barros MD Procedures Right hole ventriculostomy Objective Remarks General -66-year-old male currently resting in bed HEENT - Pupils equal, reactive, sclerae anicteric, neck supple, no nuchal rigidity. Tracheostomy site is clean dry and intact CV - Normal rate, regular rhythm. sinus. no JVD Chest - Equal chest rise. Few scattered rhonchi. Abdomen - Soft, non-tender, non-distended, no guarding. PEG tube in left side is clean dry and intact Skin - No rashes, no cyanosis, multiple tattoos bilateral upper extremities and thorax Extremities - Warm and well perfused, no edema, + peripheral PT pulses, no clubbing Neuro - Off all sedation, minimally responsive, pupils equal and reactive, moves one arm only. Occasionally moves lower extremities spontaneously. 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 Castillo following neurosurgery: Dr. Barrow following. Currently levetiracetam 750 mg IV every [address] brain decrease brain edema. Right ventriculostomy. Evolving infarcts the posterior fossa, base again, temporal and left occipital region. Decreased mass-effect on posterior fossa/fourth and lateral ventricle CT brain 07/27 - Decrease in ventricular size since July 25. Extensive low attenuation and swelling in both occipital lobes and also in the periventricular region, basal ganglia and focally in the right occipital lobe. Differential diagnosis includes edema or evolving infarcts. There is mass effect on the brainstem and posterior fossa with effacement of the fourth ventricle. CT brain 07/21 There is patchy mild diminished attenuation in centrum semi-ovale bilaterally. There is mild heterogeneous diminished density in the genu region of internal capsules and globus pallidus bilaterally. There is vague diminished density in the cerebellar hemispheres bilaterally. There is no evidence of intracranial mass or hemorrhage. There is no abnormal extra-axial fluid accumulation or shift present. 07/21 MRI brain-Multifocal areas of restricted diffusion/recent ischemia within the centrum semiovale bilaterally, bilateral occipital lobes, bilateral basal ganglia, bilateral temporal lobes, and bilateral cerebellar hemispheres. Findings could be related to global anoxic event or less likely embolic phenomenon. 07/21 EEG revealed no epileptic activity 07/21-MRA brain/neck -no acute findings UDS + opiates, amphetamines, benzodiazepines, THC and cocaine CSF studies all negative cytology and bacterial infection brain biopsies of the cerebellum revealed there is necrosis and loss of neurons of the Purkinje cell layer EVD placed 07/25 by Pushpa. Currently -20 cm H2O. 0 cc past 24 hours documented. 11 cc prior MRI head 22: Less edema in posterior fossa and supratentorial brain. Injury and edema persists bilaterally in the basal ganglia. CV: History of essential hypertension Hyperlipidemia Lactic acidosis -resolved Sinus bradycardia- secondary to elevated ICP- resolved Holding valsartan 320 mg p.o. daily due to hypotension/acute kidney injury Restart rosuvastatin 10 mg p.o. q. Sunday/Sunday/Sunday due to elevated LFTs. amlodipine 5mg po twice daily and hydralazine 100 mg 3 times daily for hypertension TTE results reviewed, LV size normal, EF of 55%. AKILAH cleared for cardiology Resp: Acute hypoxemic and hypercarbic respiratory failure Tobacco use disorder Continue PRVC ventilation Ventilator bundle Albuterol/ipratropium aerosols every 6 hours with albuterol aerosol every 2 hours as needed dyspnea budesonide 0.5/2 1 inhalation twice daily since on budesonide/formoterol 160/ 4.5 1 puff twice daily at home along with albuterol inhaler twice daily no weaning of mechanical ventilation until mental status and ICP improves wean fio2 for goal spo2 > 90% hob elevated Tracheostomy 07/28. GI: Elevated transaminases -slowly trending down Rhabdomyolysis -improving, urine output is adequate, CPK trending down Cholelithiasis Elevated ammonia 07/21 Liver ultrasound revealed cholelithiasis Hepatitis panel-negative Tube feeding with Jevity 1.5 goal 65 cc are recommended and will resume Famotidine 20 mg twice daily for GI prophylaxis Docusate/senna 1 tablet daily for bowel regimen with polyethylene glycol 17 g daily and lactulose 30 cc twice daily Placement of gastric tube/percutaneous endoscopic by Dr. Rooney 08/04 Renal/: Acute kidney injury d/c adler 08/03 continue forced diuresis currently on furosemide 20 mg IV twice daily since . Decrease to daily today 08/05 Renal ultrasound revealed no hydronephrosis bilaterally 07/21 Urine eosinophils negative. Avoid nephrotoxic drugs Endo: Sliding scale insulin with NovoLog with Accu-Cheks every 6 hours to maintain euglycemia/low regimen Hemoglobin A1c documented at 6.1 Heme: Normocytic anemia Leukocytosis Monitor CBC daily. Follow trend hold SQH ID: Staph epi/coag negative staph bacteremia Received piperacillin/tazobactam and clindamycin ED for possible aspiration ID involved and following. Previously on ceftriaxone for staph in 2/2 bottles blood cultures. Vancomycin, cefepime current regimen Pertinent cultures 08/01 -blood cultures -coag negative staph and gram-negative edgardo 07/28 -blood cultures staph epi 07/27 -blood cultures -staph epi- Blood cultures 2, UA, sputum 07/21 all pending/no growth to date Strep pneumo, Legionella urine antigens- 08/02 - CSF cultures pending, currently NGTD. 08/05 - pansensitive Pseudomonas sputum FEN: Hypernatremia Hypokalemia -acute Hypophosphatemia -resolved Electrolyte protocol Scheduled potassium chloride 20 mEq twice daily while on furosemide MSK: History of multiple lumbar/cervical spine surgeries PT evaluate and treat Access adler: will d/c 08/02. Currently with condom catheter 07/25 EVD Prophylaxis -GI -lansoprazole -DVT -SCD/ Heparin SQ held. Resume when okay with neurosurgery Overall impression: Severe neurologic deficit persists and appears to be permanent likely. Not tolerating ventilator spontaneous breathing trials and we are unable to wean from the ventilator yet. MRI with less edema posterior fossa contents and cerebrum. Basal ganglia injury bilaterally quite worrisome. Unable to wean from ventilator still. Dictation time 35 mins Manuel Rose MD August 09, 2017 08:16
[2017-08-09] MEDS: RESP: BUDESONIDE 0.5 MG/2 ML NEB NEB SCH (08:24)
--- NOTE | 2017-08-09 08:35 | HHI.NSPN ---
History Chief Complaint: multifocal infarct. Interval History 66-year-old obese gentleman who was admitted to [facility] intensive medical unit after presenting to the emergency room 5 days ago found unresponsive at home by . He was intubated and has been on ventilator support since his admission. Workup initially with CT and MRI scan of the brain revealed multifocal areas of infarct involving the bilateral supratentorial hemispheres as well as cerebellar hemispheres consistent with either embolic strokes or anoxia or hypoxia. His toxicology screen was positive for multiple drugs and polysubstance abuse including cocaine, cannabinoids, barbiturates, and opioids. He had a change in his neurologic status with posturing noted today and MRI scan obtained revealed progression of the bilateral cerebellar hemispheres strokes with obstruction of the fourth ventricle and associated hydrocephalus development. Neurosurgery was consulted for the hydrocephalus by the dentist attendant. 07/26/17: Pt sedated on Diprivan and Fentanyl drips. Not opening eyes. Pupils 3mm bilaterally NR bilaterally. Intubated. Ventriculostomy drain in place lowered to [address] Barrow with orders to increase to 5cmH20 in one hour. 07/30/17: Patient sedated with fentanyl and Diprivan drips. Not opening eyes. Trach in place. He is on CPAP. Ventriculostomy drain in place at 5 cmH20 draining clear CSF. 07/31/17: Pt sedated with Fentanyl and Diprivan. Opening eyes left more than right. Ventriculostomy drain in place at [id number]. ICP 15 draining clear CSF. 08/01/17: Pt on sedative drips Fentanyl and Diprivan. Pupils 4mm bilaterally reactive bilaterally. Ventriculostomy drain at [id number]. ICP 8 currently. Draining clear CSF. 08/02/17: Pt on Fentanyl and Diprivan drip. He opens eyes to deep pain. Pupils 3mm bilaterally reactive bilaterally. Ventric in place at 15cm H20, draining Clear CSF. 08/03/17: Pt on very low dose Fentanyl. He opens his eyes to pain. Pupils 4mm bilaterally reactive bilaterally. Ventriculostomy in place at [id number]. ICP 5. Sticks out tongue slightly to command. Not following in extremities but edematous. 08/06/17: Pt opens eyes to painful stimuli for brief periods of time. He sticks out tongue to command. Not following consistently in extremities. Ventriculostomy drain in place at [id number] and clamped. ICP 5-7 range. 08/07/17: Pt opens eyes to voice. Appears more alert with some tracking. Not following commands for me this morning. Withdraws to pain. 08/08/17: Pt opens eyes and tracks be to either side. He is not following commands. Withdraws extremities to pain. He is opening eyes more spontaneously. 08/09/17: Pt opens eyes to pain. Not following commands. Not tracking this morning. Withdraws extremities to pain. System Review Comments Not able to obtain given clinical condition. Exam Results Vital Signs Date Time Temp Pulse Resp B/P (MAP) Pulse Ox O2 Delivery O2 Flow Rate FiO2 08/09/17 07:40 30 08/09/17 07:40 100 08/09/17 06:00 81 08/09/17 04:00 98.6 18 126/63 (84) Intake and Output 08/09/17 08/09/17 08/10/17 08:00 16:00 00:00 Intake Total 1002 ml Balance 1002 ml Physical Examination General: Pt in bed in no acute distress with stable vital signs. Eyes: Pupils equal 4mm bilaterally reactive bilaterally. Sclera anicteric. Resp: Trach in place RN reports copious secretions. Heart: NSR no murmurs Abd: Soft positive bs. TFs. Skin: No cyanosis or erythema. SCDs in place. Incision clean and dry. Molly in place. Muscle: Not following in extremities for muscle testing. Some flexion in UEs to pain in upper chest. Withdraws extremities to pain. Neuro: Pt opening eyes to voice. Not following commands. Pupils 4mm bilaterally reactive bilaterally. Lab, Micro, Other Results Last Impressions Abdomen/Pelvis CT 08/07/17 1937 Signed Impressions: CONCLUSION: 1. Mild left basilar airspace disease 2. Small nonobstructing renal calculi 3. No evidence of acute intestinal process, abscess or mass. 4. Status post lumbar fusion. Brain MRI 08/07/17 0000 Signed Impressions: CONCLUSION: 1. Compared to the prior exam the previously noted edema in the posterior solitario a has improved. The previously noted edema in both occipital lobes has improved . 2. The lateral ventricles and third ventricle are now normal in size and midli ne in position. There is improved visualization of the fourth ventricle which i s midline in position. 3. Otherwise, the rest of the MRI is stable compared to the prior exam. Chest X-Ray 08/06/17 0600 Signed Impressions: Service Date/Time: Sunday, August 06, 2017 03:37 - CONCLUSION: 1. No confluent infiltrates or effusions are not identified. 2. The tracheostomy tube remains in place. Buck Henry MD Head CT 08/05/17 0600 Signed Impressions: Service Date/Time: Saturday, August 05, 2017 04:53 - CONCLUSION: 1. Decreasing brain edema and mass effect. Multiple evolving infarcts as above. Previous right frontal ventriculostomy tube placement and occipital craniotomy. Ananda Messina MD Lower Extremity Ultrasound 08/05/17 0000 Signed Impressions: Service Date/Time: Saturday, August 05, 2017 16:06 - CONCLUSION: 1. No sonographic evidence for lower extremity DVT. Sanchez Canada MD Abdomen X-Ray 07/27/17 0000 Signed Impressions: Service Date/Time: Thursday, July 27, 2017 20:37 - CONCLUSION: NG tube coiled in the lower thoracic esophagus. Oumar Bray Jr., MD Head/Brain Mag Res Venography 07/25/17 0000 Signed Impressions: Service Date/Time: Tuesday, July 25, 2017 19:54 - CONCLUSION: Patent dural sinuses. Lonnie Munguia MD Neck Magnetic Resonance Angiography 07/21/17 0000 Signed Impressions: Service Date/Time: Friday, July 21, 2017 08:40 - CONCLUSION: No acute neck arteriovascular abnormality is identified. There is no significant stenosis within either internal carotid artery. Lonnie Ross MD Head Magnetic Resonance Angiography 07/21/17 0000 Signed Impressions: Service Date/Time: Friday, July 21, 2017 08:40 - CONCLUSION: No acute intracranial vascular abnormality is identified. Lonnie Ross MD Abdomen Ultrasound 07/21/17 0000 Signed Impressions: Service Date/Time: Friday, July 21, 2017 15:47 - CONCLUSION: Cholelithiasis. No gallbladder wall thickening or pericholecystic fluid. Victor Manuel Barros MD Laboratory Tests Test 08/08/17 17:35 08/09/17 03:43 Vancomycin Level Trough 13.3 MCG/ML White Blood Count 13.8 TH/MM3 Red Blood Count 2.95 MIL/MM3 Hemoglobin 9.1 GM/DL Hematocrit 27.3 % Mean Corpuscular Volume 92.7 FL Mean Corpuscular Hemoglobin 30.8 PG Mean Corpuscular Hemoglobin Concent 33.2 % Red Cell Distribution Width 13.9 % Platelet Count 400 TH/MM3 Mean Platelet Volume 8.2 FL Neutrophils (%) (Auto) 80.8 % Lymphocytes (%) (Auto) 11.0 % Monocytes (%) (Auto) 4.5 % Eosinophils (%) (Auto) 3.1 % Basophils (%) (Auto) 0.6 % Neutrophils # (Auto) 11.2 TH/MM3 Lymphocytes # (Auto) 1.5 TH/MM3 Monocytes # (Auto) 0.6 TH/MM3 Eosinophils # (Auto) 0.4 TH/MM3 Basophils # (Auto) 0.1 TH/MM3 CBC Comment AUTO DIFF Differential Total Cells Counted 100 Neutrophils % (Manual) 73 % Band Neutrophils % 1 % Lymphocytes % 17 % Monocytes % 5 % Eosinophils % 4 % Neutrophils # (Manual) 10.2 TH/MM3 Differential Comment FINAL DIFF MANUAL Platelet Estimate NORMAL Platelet Morphology Comment NORMAL Red Cell Morphology Comment NORMAL Blood Urea Nitrogen 13 MG/DL Creatinine 0.63 MG/DL Random Glucose 131 MG/DL Calcium Level 8.1 MG/DL Sodium Level 142 MEQ/L Potassium Level 4.0 MEQ/L Chloride Level 105 MEQ/L Carbon Dioxide Level 29.5 MEQ/L Anion Gap 8 MEQ/L Estimat Glomerular Filtration Rate 128 ML/MIN Medical Decision Making Impression and Plan A: 66-year-old gentleman with multifocal infarcts involving both hemispheres supratentorially as well as bilateral cerebellar hemispheres with worsening edema and obstructive hydrocephalus. His neurologic examination is very poor. Discussed with over the phone and recommended an emergent ventriculostomy placement to treat the obstructive hydrocephalus. If there is noted improvement subsequently and the option of possible suboccipital craniectomy for decompression could be considered if the family chooses to continue with the aggressive management although this would be a heroic procedure. The at this point consents to ventriculostomy placement and this was witnessed by the nursing staff. Pt underwent a Bilateral suboccipital decompressive craniectomy; expensive dural bovine patch graft; left cerebellar hemisphere brain biopsy on 07/26/17. P: Continue with critical care, weaning vent. Continue with current care. Rehab efforts. Remove molly today. Shakir Carroll August 09, 2017 8:35 am
[2017-08-09] MEDS: ARTIFICIAL TEARS OPTH SOLN 15 ML BTL EACH EYE SCH ×2 (09:00→13:00)
[2017-08-09] MEDS: SODIUM CHLORIDE 0.9% FLUSH 10 ML FLUSH IV FLUSH SCH (09:00)
[2017-08-09] MEDS: COLLAGENASE OINT 30 GM TUBE TOPICAL SCH (09:00)
[2017-08-09] MEDS: POTASSIUM CHLORIDE 20 MEQ PWD PACKET NG SCH (09:00)
[2017-08-09] MEDS: FUROSEMIDE 40 MG/4 ML VIAL IV PUSH SCH (09:35)
[2017-08-09] MEDS: NYSTATIN SUSP 500,000 U/5 ML CUP SWISH-SWAL SCH ×2 (09:35→13:00)
[2017-08-09] MEDS: LACTULOSE SYRUP 20 GM/30 ML CUP PO SCH (09:35)
[2017-08-09] MEDS: levETIRAcetam INJ 750 MG in SODIUM CHLORIDE 0.9% INJ 100 ML IV SCH (09:35)
[2017-08-09] MEDS: LACTOBACILLUS ACIDOPHILUS TAB PO SCH ×2 (09:36→15:11)
[2017-08-09] MEDS: POLYETHYLENE GLYCOL 17 GM PKG PO SCH (09:36)
[2017-08-09] MEDS: amLODIPine BESYLATE 5 MG TAB PO SCH (09:36)
[2017-08-09] MEDS: LANSOPRAZOLE SOLUTAB 30 MG TAB NG SCH (09:37)
[2017-08-09] MEDS: LISINOPRIL 10 MG TAB PO SCH (09:37)
[2017-08-09] MEDS: DOCUSATE SODIUM 50 MG/SENNA 8.6 MG TAB PO SCH (09:37)
[2017-08-09] MEDS ORDERED: HEPARIN SODIUM - SQ 10,000 UNITS/ML VIAL SQ SCH (14:00)
--- NOTE | 2017-08-09 14:27 | HHI.DS ---
Discharge Summary Admission Date July 21, 2017 at 00:00 Admitting Diagnosis Altered mental status/acute respiratory failure (1) Toxic metabolic encephalopathy ICD Code: G92 - Toxic encephalopathy Diagnosis: Principal Status: Acute (2) Ischemic stroke ICD Code: I63.9 - Cerebral infarction, unspecified Diagnosis: Principal Status: Acute (3) Acute respiratory failure ICD Code: J96.00 - Acute respiratory failure, unspecified whether with hypoxia or hypercapnia Diagnosis: Principal Status: Acute (4) Acute kidney injury ICD Code: N17.9 - Acute kidney failure, unspecified Diagnosis: Principal Status: Acute (5) Tobacco abuse ICD Code: Z72.0 - Tobacco use Diagnosis: Secondary (6) Hypertension ICD Code: I10 - Essential (primary) hypertension Diagnosis: Secondary (7) Dyslipidemia ICD Code: E78.5 - Hyperlipidemia, unspecified Diagnosis: Secondary (8) COPD (chronic obstructive pulmonary disease) ICD Code: J44.9 - Chronic obstructive pulmonary disease, unspecified Diagnosis: Secondary (9) Lactic acidosis ICD Code: E87.2 - Acidosis Diagnosis: Principal (10) Rhabdomyolysis ICD Code: M62.82 - Rhabdomyolysis Diagnosis: Principal (11) Hyponatremia ICD Code: E87.1 - Hypo-osmolality and hyponatremia Diagnosis: Secondary (12) Leukocytosis ICD Code: D72.829 - Elevated white blood cell count, unspecified Diagnosis: Secondary (13) Tetrahydrocannabinol (THC) use disorder, mild, abuse ICD Code: F12.10 - Cannabis abuse, uncomplicated Diagnosis: Secondary (14) Cocaine use ICD Code: F14.90 - Cocaine use, unspecified, uncomplicated Diagnosis: Principal (15) Hyperkalemia ICD Code: E87.5 - Hyperkalemia Diagnosis: Principal Procedures Right hole ventriculostomy Brief History This is a 66-year-old male. Date of admission 07/20/2017. Past medical history includes hypertension, hyperlipidemia, COPD with ongoing tobacco abuse, peptic ulcer disease and anxiety. He also has history of lumbar stenosis, degenerative joint disease of the back and cervical spine. He presents to [email or web address] with the following history. 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 According to his at bedside, patient is drug tested. Patient returned home from work on Sunday after his 30 day work schedule. Patient was changing the tire of a bike friend yesterday. Patient returned home in no acute distress. Today, patient was tired and was sleeping all day. Initially patient had similar symptoms at lunch. When the attempted to wake him up later this evening patient be was nonresponsive with a weak pulse. She attempted to use ammonia without response. At that time EMS was called and patient was transferred to [facility]. Patient was noted to be an acute change with a creatinine of 3.8. Baseline is normal. Potassium is 7.4 without EKG changes. Patient received bicarbonate, insulin/D50, calcium and Kayexalate in the ED. Repeat potassium 3 hours. Patient is making urine and appears concentrated. UA is pending. Patient leukocytosis 13,000. CPK was 5000. Lactic acid was 2.6. Urine drug screen revealed positive for opiates, amphetamines, benzodiazepines, THC and cocaine. Head CT is currently pending. Due to altered mental status patient was admitted after receiving 20 mg etomidate and 100 mg succinylcholine by ED physician. Patient also received 4 mg of midazolam and after which patient became hypotensive is currently receiving 3 L normal saline wide open. Head CT is currently pending. Patient received clindamycin along with piperacillin/ tazobactam in the ED. CBC/BMP: 08/09/17 0343 08/09/17 0343 Significant Findings Laboratory Tests Test 08/06/17 17:40 08/06/17 22:20 08/07/17 04:35 08/08/17 02:59 Vancomycin Level Trough 12.2 MCG/ML (5.0-10.0) White Blood Count 12.1 TH/MM3 (4.0-11.0) Red Blood Count 3.11 MIL/MM3 (4.50-5.90) Hemoglobin 9.6 GM/DL (13.0-17.0) Hematocrit 29.2 % (39.0-51.0) Neutrophils (%) (Auto) 72.5 % (16.0-70.0) Eosinophils (%) (Auto) 4.2 % (0.0-4.0) Neutrophils # (Auto) 8.8 TH/MM3 (1.8-7.7) Eosinophils # (Auto) 0.5 TH/MM3 (0-0.4) Test 08/08/17 05:14 08/08/17 17:35 5/24/18 03:43 Random Glucose 138 MG/DL (74-106) 131 MG/DL (74-106) Total Protein 5.8 GM/DL (6.4-8.2) Albumin 2.2 GM/DL (3.4-5.0) Calcium Level 8.1 MG/DL (8.5-10.1) 8.1 MG/DL (8.5-10.1) Vancomycin Level Trough 13.3 MCG/ML (5.0-10.0) White Blood Count 13.8 TH/MM3 (4.0-11.0) Red Blood Count 2.95 MIL/MM3 (4.50-5.90) Hemoglobin 9.1 GM/DL (13.0-17.0) Hematocrit 27.3 % (39.0-51.0) Neutrophils (%) (Auto) 80.8 % (16.0-70.0) Neutrophils # (Auto) 11.2 TH/MM3 (1.8-7.7) Neutrophils % (Manual) 73 % (16-70) Neutrophils # (Manual) 10.2 TH/MM3 (1.8-7.7) Imaging CT head: Cerebellar and cerebral ischemic strokes. MRI: same as above PE at Discharge Ventilator dependent respiratory failure. Severe neurological impairment. Transfer Summary Unable to wean from ventilator, will transfer to LTAC today. Hospital Course This is a 66-year-old male. Date of admission 07/20/2017. Past medical history includes hypertension, hyperlipidemia, COPD with ongoing tobacco abuse, peptic ulcer disease and anxiety. He also has history of lumbar stenosis, degenerative joint disease of the back and cervical spine. He presents to [facility] with the following history. 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 According to his at bedside, patient is drug tested. Patient returned home from work on Sunday after his 30 day work schedule. Patient was changing the tire of a bike friend yesterday. Patient returned home in no acute distress. Today, patient was tired and was sleeping all day. Initially patient had similar symptoms at lunch. When the attempted to wake him up later this evening patient be was nonresponsive with a weak pulse. She attempted to use ammonia without response. At that time EMS was called and patient was transferred to [facility]. Patient was noted to be an acute change with a creatinine of 3.8. Baseline is normal. Potassium is 7.4 without EKG changes. Patient received bicarbonate, insulin/D50, calcium and Kayexalate in the ED. Repeat potassium 3 hours. Patient is making urine and appears concentrated. UA is pending. Patient leukocytosis 13,000. CPK was 5000. Lactic acid was 2.6. Urine drug screen revealed positive for opiates, amphetamines, benzodiazepines, THC and cocaine. Head CT is currently pending. Due to altered mental status patient was admitted after receiving 20 mg etomidate and 100 mg succinylcholine by ED physician. Patient also received 4 mg of midazolam and after which patient became hypotensive is currently receiving 3 L normal saline wide open. Head CT is currently pending. Patient received clindamycin along with piperacillin/ tazobactam in the ED. 07/21: Overnight the patient required to protamine infusion low-dose currently being weaned off. The patient continues on fentanyl and propofol infusion for ventilator synchrony. Patient's undergoing MRI evaluation results pending. The patient was noted to have significant elevation in creatinine kinase the patient is bolused 1 L IV fluids increase in normal saline 200 cc/hr. Lactic acid downtrending will continue to trend creatinine noted to be decreasing. 07/22: Currently afebrile. Off all vasopressors. We will switch to LR at 200 cc an hour. Recheck BMP this afternoon. Moving all 4 x-rays spontaneously right upper extremity less. Opens eyes but not following commands. Positive gag and corneal reflex. 07/23: Currently on dexmedetomidine drip at 0.7 mg/kg/h. Minimal response to distinguish. Will hold at the present time and reassess neurological condition. EEG showed no epileptiform activity. Tolerating tube feeding. No bowel movement since admission. Currently afebrile. 07/24: Per nursing staff patient was off sedation over the night and he woke up and followed some simple commands, but due to agitation, hypertension and tachycardia patient was restarted on sedation. He is currently on Precedex at 1 , tolerating CPAP, sedated. T-max of 99. I/O 3029/1451. 07/25: No events over the night. This morning while attempting CPAP trial patient became rigid, unresponsive, with gaze deviation, tachypneic tachycardic and hypertensive, suggesting seizure activity. Patient was immediately given Ativan 2 mg 1 with resolution of episode. Neurology was contacted and plan for EEG and CT head as well as propofol infusion. No family present at bedside. T-max of 100.7 over the night. Urine output 2300 mL's over the last 24 hours. 07/26: EVD placed yesterday for declining mental status with hydrocephalus and severe cerebellar edema. this AM, extensor posturing. supratentorial ICPs controlled, but cerebellar edema persists. discussed with Dr. Roman: csf could be consistent with encephalitis. d/w Dr. Barrow: will need posterior fossa decompression. 07/27: no improvements in mental status. s/p suboccipital crani yesterday. remains intermittently on cardene and levophed to maintain cpp. ICP controlled. brain biopsies pending. 07/28: Osmolality suitably concentrated. ICP well controlled. Maintaining head up position. On attempted CPAP trial patient has 25 second periods of apnea. Unstable neurological status we will not stress him with extended spontaneous breathing trials. 07/29: Requiring Cardene still to maintain systolic blood pressure less than 160. Markedly edematous and will need to start active diuresis. No change in neurologic function. Apnea episodes persist. 07/30: off cardene. still grossly volume overloaded. neuro exam remains poor. 07/31: no improvement in mental status. wbc slight uptrend. afebrile. awaiting MRI for prognostication and to re-evaluate edema. adequate diuresis yesterday. 08/01: encephalopathy persists. wbc uptrending but afebrile. unable to obtain MRI due to elevated ICP, cannot tolerate lying flat. would benefit from MRI when able. diuresing well. 08/02: low grade fevers persist. wbc still high. on empiric abx. ventric has been in x 7 days: with fever and poor neurologic exam, will send CSF for cell count and culture. no change in mental status. 08/03: CSF cultures pending. no change in neuro exam. wbc still high and uptrending. challenging drain, currently at [id number] 08/04: Afebrile. Positive gag and cough. Ventricular drain currently at 20 cm H2O. Afebrile. PEG tube placed today. Subjective: 08/05: Afebrile. CT brain today revealed decreased brain edema. Multiple infarcts including posterior fossa, basal ganglia, left occipital and temporal regions. T-max 100.1. WBCs continue to be elevated.. Blood cultures growing gram-negative rods currently. 08/06: Tolerating CPAP spontaneous breathing trials but requires elevated pressure support in the range of 15-18. Excessive oral secretions will start Levsin. Moves feet spontaneously. 08/07: Moves feet spontaneously. Fails SBTs. For MRI today for re-evaluation. 08/08: Will need wound care consult for groin breakdown. No change in neurological status. 08/09: No improvement in neurologic function overnight. Blood pressure control acceptable. Tolerate spontaneous breathing trial but persistent respiratory rate remains at 8-9. Pt Condition on Discharge: Fair Discharge Disposition: Disch to Another Hospital Discharge Instructions DIET: Follow Instructions for: Full Liquid Diet Activities you can perform: Partial Weight Bearing Manuel Rose MD August 09, 2017 14:27
--- NOTE | 2017-08-09 16:46 | HHI.HCPN ---
Received call from delio Lozano requesting update. Attempted to return call, unable to reach, left with update regarding patient being transferred to [facility]. Son has palliative care contact information. Roxy Bray SITE RELIABILITY ENGINEER, MARKETING PRODUCTION COORDINATOR August 09, 2017 16:46
--- NOTE | 2017-08-09 16:51 | PD.CARD.PN ---
Subjective Subjective Remarks trached, on iv fentanyl, sitting upright in chair, restrained, some eye tracking , does not appear to follow simple commands Objective Medications Current Medications Medications (Trade) Dose Ordered Sig/Claudia Route Start Time Stop Time Status Last Admin (NS Flush) 2 ml UNSCH PRN IV FLUSH 07/21/17 00:00 (NS Flush) 2 ml BID IV FLUSH 07/21/17 09:00 08/09/17 09:00 (Tears Naturale Opth Soln) 1 drop TID EACH EYE 07/21/17 09:00 08/09/17 13:00 (Albuterol Neb) 2.5 mg Q2HR NEB PRN INH 07/21/17 00:00 08/03/17 08:20 ([facility] [place] [facility]) 1 Q361D XX 07/21/17 00:00 07/21/17 00:00 (Chlorhexidine 2% Cloth) 3 pack Taper DAILY@04 TOP 07/21/17 04:00 07/17/18 03:59 08/09/17 04:00 (Chlorhexidine 2% Cloth) 3 pack UNSCH PRN TOP 07/21/17 00:00 (Milk Of Magnesia Liq) 30 ml Q12H PRN PO 07/21/17 00:00 (Senokot) 17.2 mg Q12H PRN PO 07/21/17 00:00 (Dulcolax Supp) 10 mg DAILY PRN RECTAL 07/21/17 00:00 (Lactulose Liq) 30 ml DAILY PRN PO 07/21/17 00:00 (Peridex 0.12% Liq) 15 ml BID@08,20 MT 07/21/17 08:00 08/09/17 08:00 (D50w (Vial) Inj) 50 ml UNSCH PRN IV PUSH 07/21/17 00:00 (Glucagon Inj) 1 mg UNSCH PRN OTHER 07/21/17 00:00 (NovoLOG SUPPLEMENTAL SCALE) 1 Q6HR SQ 07/21/17 00:00 07/30/17 17:49 (Pulmicort Respule Neb) 0.5 mg Q12HR NEB NEB 07/21/17 08:00 08/09/17 08:24 (Brethine Inj) 1 mg UNSCH PRN SQ 07/21/17 00:30 (Apresoline Inj) 10 mg Q1H PRN IV PUSH 07/22/17 09:45 07/24/17 19:51 (Nitroglycerin 2% Oint) 2 inch Q6H PRN TOPICAL 07/22/17 09:45 Levetriacetam 750 mg/Sodium Chloride 107.5 ml @ 420 mls/hr Q12H IV 07/25/17 10:00 08/09/17 09:35 (Brethine Inj) 1 mg UNSCH PRN SQ 07/26/17 09:45 Propofol 100 ml @ 3.102 mls/ hr TITRATE PRN IV 07/26/17 11:00 08/02/17 06:43 Fentanyl Citrate 250 ml @ 5 mls/hr TITRATE PRN IV 07/26/17 11:00 08/09/17 00:00 (Lactinex) 1 tab TID PO 07/28/17 18:00 08/09/17 15:11 (Norvasc) 5 mg BID PO 07/29/17 09:00 08/09/17 09:36 (Prinivil) 10 mg DAILY PO 07/29/17 09:00 08/09/17 09:37 (Apresoline) 50 mg Q8H PRN PO 07/30/17 09:15 Pharmacy Profile Note 0 ml @ 0 mls/hr UNSCH OTHER 07/30/17 13:00 (Apresoline) 100 mg Q8H PO 07/30/17 18:00 08/09/17 09:37 ([facility] [place] [facility] Information) D/C ICU ELECTROLYTE ORDERS... UNSCH PRN .XX 08/01/17 08:30 ([facility] [place] [facility] Information) ICU - CALL ORDERING PHYSIC... UNSCH PRN .XX 08/01/17 08:30 Potassium Chloride 100 ml @ 25 mls/hr UNSCH PRN IV 08/01/17 08:30 (K-Lyte Cl Eff) 50 meq UNSCH PRN PO 08/01/17 08:30 Potassium Chloride 100 ml @ 50 mls/hr UNSCH PRN IV 08/01/17 08:30 08/06/17 12:01 Magnesium Sulfate 4 gm/Sodium Chloride 108 ml @ 54 mls/hr UNSCH PRN IV 08/01/17 08:30 Magnesium Sulfate 2 gm/Sodium Chloride 104 ml @ 52 mls/hr UNSCH PRN IV 08/01/17 08:30 (Mag-Ox) 800 mg UNSCH PRN PO 08/01/17 08:30 Sodium Phosphate 30 mmol/Sodium Chloride 260 ml @ 43.333 mls/ hr UNSCH PRN IV 08/01/17 08:30 (K-Phos) 2,000 mg UNSCH PRN PO 08/01/17 08:30 Potassium Phosphate 30 mmol/ Sodium Chloride 260 ml @ 43.333 mls/ hr UNSCH PRN IV 08/01/17 08:30 (Mycostatin Liq) 5 ml QID SWISH-SWAL 08/03/17 18:00 08/09/17 13:00 (KCl Powder) 20 meq Q12HR NG 08/04/17 21:00 08/09/17 09:00 (Lasix Inj) 20 mg DAILY IV PUSH 08/06/17 09:00 08/09/17 09:35 (Prevacid Odt) 30 mg DAILY NG 08/06/17 09:00 08/09/17 09:37 (Dilia-Colace) 1 tab DAILY PO 08/06/17 09:00 08/09/17 09:37 (Lactulose Liq) 30 ml BID PO 08/05/17 21:00 08/09/17 09:35 (Miralax) 17 gm DAILY PO 08/06/17 09:00 08/09/17 09:36 (Zofran Odt) 4 mg Q6H PRN .XX 08/05/17 23:15 Piperacillin Sod/ Tazobactam Sod 100 ml @ 200 mls/hr Q6H IV 08/06/17 20:00 08/09/17 15:09 (Santyl Oint) 1 applic DAILY TOPICAL 08/08/17 17:15 08/09/17 09:00 Vancomycin HCl 1750 mg/Sodium Chloride 517.5 ml @ 250 mls/hr Q12H IV 08/09/17 05:00 08/09/17 04:06 ([facility] [place] [facility] Ordered Lab Info) SPECIFIC LAB TO BE ... ONCE ONCE .XX 08/11/17 04:45 08/11/17 04:46 (Lipitor) 10 mg MoWeFr PO 08/10/17 09:00 (Heparin Inj) 5,000 units Q8HR SQ 08/09/17 14:00 08/09/17 15:09 Vital Signs / I&O Vital Signs Date Time Temp Pulse Resp B/P (MAP) Pulse Ox O2 Delivery O2 Flow Rate FiO2 08/09/17 16:04 95 30 08/09/17 12:00 30 08/09/17 11:21 97 30 08/09/17 08:00 30 08/09/17 07:40 30 08/09/17 07:40 100 30 08/09/17 06:00 81 08/09/17 04:26 98 30 08/09/17 04:00 82 08/09/17 04:00 98.6 82 18 126/63 (84) 97 08/09/17 04:00 30 08/09/17 02:00 70 08/09/17 00:00 30 08/09/17 00:00 70 08/09/17 00:00 98.8 70 18 108/62 (77) 99 08/08/17 23:53 99 30 08/08/17 22:00 74 08/08/17 20:54 30 30 08/08/17 20:48 98 30 08/08/17 20:00 98.7 78 18 99/53 (68) 98 08/08/17 20:00 30 08/08/17 20:00 82 08/08/17 18:00 85 I/O 08/08/17 08/08/17 08/08/17 08/09/17 08/09/17 08/09/17 07:00 15:00 23:00 07:00 15:00 23:00 Intake Total 781 ml 307.5 ml 1134.5 ml 1252 ml Output Total 600 ml Balance 181 ml 307.5 ml 1134.5 ml 1252 ml IV Total 307.5 ml 207.5 ml 350 ml Tube Feeding 691 ml 807 ml 722 ml Other 90 ml 120 ml 180 ml Stool Total 600 ml # Voids 6 8 4 # Bowel Movements 3 2 Physical Exam GENERAL: SKIN: Warm and dry. HEAD: Normocephalic. EYES: No scleral icterus. No injection or drainage. NECK: Supple, trachea midline. No JVD or lymphadenopathy. CARDIOVASCULAR: Regular rate and rhythm without murmurs, gallops, or rubs. RESPIRATORY: Breath sounds equal bilaterally. No accessory muscle use. GASTROINTESTINAL: Abdomen soft, non-tender, nondistended. MUSCULOSKELETAL: No cyanosis, or edema. BACK: Nontender without obvious deformity. No CVA tenderness. Laboratory Laboratory Tests Test 08/08/17 17:35 08/09/17 03:43 Vancomycin Level Trough 13.3 MCG/ML White Blood Count 13.8 TH/MM3 Red Blood Count 2.95 MIL/MM3 Hemoglobin 9.1 GM/DL Hematocrit 27.3 % Mean Corpuscular Volume 92.7 FL Mean Corpuscular Hemoglobin 30.8 PG Mean Corpuscular Hemoglobin Concent 33.2 % Red Cell Distribution Width 13.9 % Platelet Count 400 TH/MM3 Mean Platelet Volume 8.2 FL Neutrophils (%) (Auto) 80.8 % Lymphocytes (%) (Auto) 11.0 % Monocytes (%) (Auto) 4.5 % Eosinophils (%) (Auto) 3.1 % Basophils (%) (Auto) 0.6 % Neutrophils # (Auto) 11.2 TH/MM3 Lymphocytes # (Auto) 1.5 TH/MM3 Monocytes # (Auto) 0.6 TH/MM3 Eosinophils # (Auto) 0.4 TH/MM3 Basophils # (Auto) 0.1 TH/MM3 CBC Comment AUTO DIFF Differential Total Cells Counted 100 Neutrophils % (Manual) 73 % Band Neutrophils % 1 % Lymphocytes % 17 % Monocytes % 5 % Eosinophils % 4 % Neutrophils # (Manual) 10.2 TH/MM3 Differential Comment FINAL DIFF MANUAL Platelet Estimate NORMAL Platelet Morphology Comment NORMAL Red Cell Morphology Comment NORMAL Blood Urea Nitrogen 13 MG/DL Creatinine 0.63 MG/DL Random Glucose 131 MG/DL Calcium Level 8.1 MG/DL Sodium Level 142 MEQ/L Potassium Level 4.0 MEQ/L Chloride Level 105 MEQ/L Carbon Dioxide Level 29.5 MEQ/L Anion Gap 8 MEQ/L Estimat Glomerular Filtration Rate 128 ML/MIN Assessment and Plan Problem List: (1) Toxic metabolic encephalopathy ICD Codes: G92 - Toxic encephalopathy (2) Tetrahydrocannabinol (THC) use disorder, mild, abuse ICD Codes: F12.10 - Cannabis abuse, uncomplicated (3) Encephalopathy ICD Codes: G93.40 - Encephalopathy, unspecified (4) Stroke ICD Codes: I63.9 - Cerebral infarction, unspecified (5) Chronic, continuous use of opioids ICD Codes: F11.90 - Opioid use, unspecified, uncomplicated (6) Cocaine use ICD Codes: F14.90 - Cocaine use, unspecified, uncomplicated Assessment and Plan 1.) Cleared by neurosurgery for SWAPNIL, not sure if findings will change management consultant as neurologic prognosis appears poor, d/w ID 08/04/17; SWAPNIL not currently indicated, d/w nurse at bedside 08/06/17; consider swapnil if still indicated from ID standpoint and patient has meaningful neurologic recovery; , no significant neurologic improvement Navid Corrales MD August 09, 2017 16:51
[2017-08-10] MEDS ORDERED: ATORVASTATIN 20 MG TAB PO SCH (09:00)
[2017-08-11] MEDS ORDERED: PHARMACY ORDERED LAB ONE (04:45)
== END 2017-08-09 17:15 | DRG 3 ==
LOC: NEPC 22:14 → NEDA 23:51 → UNDOADMIN 07-21 → NEDA 07-21 01:05 → HIME 07-21 01:05 → N03B 07-25 15:11 → UNDODISIN 08-09 17:15
PROVIDERS: ADMIT Internal Medicine Critical Care Medicine; ATTEND Internal Medicine Critical Care Medicine
PROC: 5A1955Z Respiratory Ventilation, Greater than 96 Consecutive Hours (ICD-10-PCS; 2017-07-20)
PROC: 0BH17EZ Insertion of Endotracheal Airway into Trachea, Via Natural or Artificial Opening (ICD-10-PCS; 2017-07-20)
PROC: 009630Z Drainage of Cerebral Ventricle with Drainage Device, Percutaneous Approach (ICD-10-PCS; principal; 2017-07-25)
PROC: 02HV33Z Insertion of Infusion Device into Superior Vena Cava, Percutaneous Approach (ICD-10-PCS; 2017-07-25)
PROC: 00BC0ZX Excision of Cerebellum, Open Approach, Diagnostic (ICD-10-PCS; 2017-07-26)
PROC: 00N00ZZ Release Brain, Open Approach (ICD-10-PCS; 2017-07-26)
PROC: 03HY32Z Insertion of Monitoring Device into Upper Artery, Percutaneous Approach (ICD-10-PCS; 2017-07-26)
PROC: 0B113F4 Bypass Trachea to Cutaneous with Tracheostomy Device, Percutaneous Approach (ICD-10-PCS; 2017-07-27)
PROC: 0BJ08ZZ Inspection of Tracheobronchial Tree, Via Natural or Artificial Opening Endoscopic (ICD-10-PCS; 2017-07-27)
PROC: 0DB98ZX Excision of Duodenum, Via Natural or Artificial Opening Endoscopic, Diagnostic (ICD-10-PCS; 2017-08-03)
PROC: 0DB78ZX Excision of Stomach, Pylorus, Via Natural or Artificial Opening Endoscopic, Diagnostic (ICD-10-PCS; 2017-08-03)
PROC: 0DB38ZX Excision of Lower Esophagus, Via Natural or Artificial Opening Endoscopic, Diagnostic (ICD-10-PCS; 2017-08-03)
PROC: 0DH63UZ Insertion of Feeding Device into Stomach, Percutaneous Approach (ICD-10-PCS; 2017-08-03)
DX: I63.8 Other cerebral infarction (principal); G93.5 Compression of brain; G92 Toxic encephalopathy; N17.9 Acute kidney failure, unspecified; J90 Pleural effusion, not elsewhere classified; J18.9 Pneumonia, unspecified organism; J96.21 Acute and chronic respiratory failure with hypoxia; J96.22 Acute and chronic respiratory failure with hypercapnia; E87.4 Mixed disorder of acid-base balance; E87.0 Hyperosmolality and hypernatremia; G91.1 Obstructive hydrocephalus; M62.82 Rhabdomyolysis; E87.1 Hypo-osmolality and hyponatremia; Z99.11 Dependence on respirator [ventilator] status; R78.81 Bacteremia; J44.0 Chronic obstructive pulmonary disease with (acute) lower respiratory infection; I95.9 Hypotension, unspecified; I10 Essential (primary) hypertension; E83.51 Hypocalcemia; E87.5 Hyperkalemia; E78.5 Hyperlipidemia, unspecified; F12.10 Cannabis abuse, uncomplicated; F41.9 Anxiety disorder, unspecified; M48.061 Spinal stenosis, lumbar region without neurogenic claudication; M47.816 Spondylosis without myelopathy or radiculopathy, lumbar region; M47.812 Spondylosis without myelopathy or radiculopathy, cervical region; F17.210 Nicotine dependence, cigarettes, uncomplicated; F32.9 Major depressive disorder, single episode, unspecified; R79.89 Other specified abnormal findings of blood chemistry; R74.0 Nonspecific elevation of levels of transaminase and lactic acid dehydrogenase [LDH]; E87.6 Hypokalemia; G89.29 Other chronic pain; Z51.5 Encounter for palliative care; Z74.01 Bed confinement status; E66.9 Obesity, unspecified; F14.10 Cocaine abuse, uncomplicated; K44.9 Diaphragmatic hernia without obstruction or gangrene; K80.20 Calculus of gallbladder without cholecystitis without obstruction; F13.10 Sedative, hypnotic or anxiolytic abuse, uncomplicated; R31.9 Hematuria, unspecified; R13.10 Dysphagia, unspecified; E87.70 Fluid overload, unspecified; R56.9 Unspecified convulsions; B95.7 Other staphylococcus as the cause of diseases classified elsewhere; E83.39 Other disorders of phosphorus metabolism; D64.9 Anemia, unspecified; K26.9 Duodenal ulcer, unspecified as acute or chronic, without hemorrhage or perforation; K29.70 Gastritis, unspecified, without bleeding; K59.00 Constipation, unspecified; Z16.19 Resistance to other specified beta lactam antibiotics; Z16.24 Resistance to multiple antibiotics; K20.9 Esophagitis, unspecified; Z79.899 Other long term (current) drug therapy; Z79.891 Long term (current) use of opiate analgesic; Z87.11 Personal history of peptic ulcer disease; Z82.49 Family history of ischemic heart disease and other diseases of the circulatory system; Z98.1 Arthrodesis status; Z68.27 Body mass index [BMI] 27.0-27.9, adult
CPT/HCPCS: 31600; 31624; 36556; 36600; 61210; 70450; 70544; 70546; 70547; 70551; 70553; 71045; 74018; 74176; 76700; 76937; 80048; 80053; 80061; 80074; 80076; 80202; 80307; 81001; 82040; 82042; 82140; 82150; 82533; 82550; 82552; 82570; 82607; 82746; 82784; 82805; 82945; 82948; 83036; 83605; 83615; 83735; 83873; 83916; 83921; 83930; 84100; 84132; 84145; 84155; 84157; 84165; 84295; 84300; 84425; 84439; 84443; 84484; 85007; 85025; 85027; 85610; 85652; 85730; 86038; 86403; 86430; 86592; 86618; 86651; 86652; 86653; 86654; 87015; 87040; 87070; 87077; 87086; 87102; 87116; 87176; 87186; 87205; 87206; 87252; 87449; 87493; 87529; 87641; 87804; 88108; 88305; 88307; 88312; 89051; 93005; 93225; 93226; 93306; 93970; 94002; 94003; 94150; 94640; 94664; 95819; A7521; A9579; C1713; C9113; J0133; J0330; J0360; J0456; J0610; J0692; J0696; J1100; J1120; J1265; J1580; J1644; J1815; J1940; J1953; J2060; J2250; J2310; J2370; J2405; J2543; J2930; J3010; J3370; J3480; J7030; J7040; J7050; J7120; J7613; J7626; Q9963